=== PATIENT | male | born 1940 | race Caucasian/White ===

== ENCOUNTER 2018-12-14 22:06 | Emergency (ER) | payer OTHER ==
--- OUTSIDE RECORDS SUMMARY | 2018-12-14 22:09 | XMS REPORT ---
:1940 Author Organization eClinicalWorks Care Team Providers Name Role Phone Mccoy, Na Provider Role Unavailable Allergies, Adverse Reactions, Alerts Substance Reaction Event Type Levaquin severe leg cramps Drug Allergy Clarithromycin diarrhea, bad taste, dizziness Drug Allergy Problems Problem Type Condition Code Onset Dates Condition Status Problem Prediabetes R73.09 Active Problem Foreign body in left ear, initial T16.2XXA Active encounter Problem Acute right-sided back pain with M54.41 Active sciatica Problem Iron deficiency anemia, D50.9 Active unspecified iron deficiency anemia type Assessment Prediabetes R73.09 Active Problem Hyponatremia E87.1 Active Assessment Dizziness R42 Active Assessment Hyperlipidemia E78.5 Active Problem Hypothyroidism (acquired) E03.9 Active Problem 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 Problem Elevated prostate specific antigen R97.2 Active [PSA] Problem Pneumococcal vaccination Z23 Active administered at current visit Problem Adult general medical exam Z00.00 Active Problem History of insect sting allergy Z91.038 Active Assessment Hyponatremia E87.1 Active Assessment Hypothyroidism (acquired) E03.9 Active Problem Restless leg syndrome G25.81 Active Problem HTN (hypertension) I10 Active Assessment Iron deficiency anemia, D50.9 Active unspecified iron deficiency anemia type Problem Microscopic hematuria R31.29 Active Problem Dizziness R42 Active Assessment HTN (hypertension) I10 Active Problem 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 Active Problem Hyperlipidemia E78.5 Active Medications Medication Code Code Instructions Start End Status Dosage System Date Date Pantoprazole [facility] 24208167384 40 MG Orally Active 1 tablet Sodium Once a day Meclizine HCl [facility] 36170649534 25 MG Active TAKE 1 TABLET BY MOUTH 3 TIMES A DAY Lisinopril ND 98242766140 40 MG Orally Active 1 tablet Once a day EpiPen 2-Gerald [facility] 54155861467 0.3 MG/0.3ML Active not Injection defined Singulair ND 02519046839 10 MG Orally Active 1 tablet Once a day Olopatadine HCl [facility] 27638777952 0.6 % Nasally Active 2 sprays Twice a day in each nostril Cipro [facility] 66852446481 500 MG Orally Active 1 tablet every 12 hrs Crestor [facility] 80192559854 40 MG Orally Active 1 tablet Once a day Augmentin [facility] 31261745120 500-125 MG Active 1 tablet Orally every 12 hrs Levothyroxine [facility] 42403526545 25 MCG Orally Oct 24, Active 1 tablet Sodium Once a day in 2018 on an AM empty stomach in the morning Mobic [facility] 53529383568 7.5 MG Orally Active 1 tablet Once a day Results No Known Results Summary Purpose eClinicalWorks Submission
[2018-12-14] MEDS ORDERED: VANCOMYCIN 1 GM/250 ML BAG ONE (23:35)
[2018-12-14] MEDS ORDERED: PIPER/TAZO/NS 3.375gm 3.375 GM/100 ML BAG ONE (23:35)
[2018-12-14 23:37] LABS: Absolute Lymphocytes (CBC) 1.5 K/uL (0.7-4.9); Absolute Monocytes 0.6 K/uL (0.1-1.3); Absolute Neutrophil 3.8 K/uL (1.8-8.0); Basophils % 0.8 % (0-1.3); Eosinophils % 2.4 % (0-4.4); Hematocrit 35.7 % (39.6-49.0); Lymphocytes % 24.6 % (15.3-44.8); MPV 8.3 fL (7.6-11.3); Monocytes % 9.8 % (3.3-12.3)
[2018-12-14 23:54] LABS: Albumin 3.8 g/dL (3.4-5.0); Bilirubin Direct 0.2 mg/dL (0-0.2); Bilirubin Total 0.6 mg/dL (0.2-1.0); Potassium 3.9 mmol/L (3.5-5.1)
[2018-12-15] MEDS ORDERED: LIDOCAINE 1% MPF 2 ML AMPULE ONE (01:09)
--- NOTE | 2018-12-15 01:16 | ER ---
Nurse's Notes [facility] Name: Noah Whyte Age: 78 yrs Sex: Male : 1940 Arrival Date: 12/14/2018 Time: 22:09 Bed 30 Private MD: Diagnosis: Lymphangitis;Cutaneous abscess of right hand;Puncture wound with foreign body of right hand Presentation: 12/14 22:45 Presenting complaint: Patient states: "I FELT SOMETHING ON MY THUMB A WEEK AGO WHEN I rv WAS OUTSIDE. LIKE AN INSECT BITE OR SOMETHING AND I THOUGHT ITS JUST GO AWAY BUT TODAY I NOTICED I HAVE THIS WARM RED ROD ON MY RIGHT ARM NOW.". Transition of care: patient was not received from another setting of care. Onset of symptoms was December 14, 2018 at 22:46. Risk Assessment: Do you want to hurt yourself or someone else? Patient reports no desire to harm self or others. Initial Sepsis Screen: Does the patient meet any 2 criteria? No. Patient's initial sepsis screen is negative. Does the patient have a suspected source of infection? No. Patient's initial sepsis screen is negative. Care prior to arrival: None. 22:45 Method Of Arrival: Ambulatory rv 22:45 Acuity: JAIMIE 4 rv Triage Assessment: 22:50 General: Appears in no apparent distress. comfortable, Behavior is calm, cooperative. rv Pain: Denies pain. Derm: Rash noted that is red, on right arm. Musculoskeletal: No signs and/or symptoms reported regarding the musculoskeletal system. Historical: - Allergies: 22:50 Levofloxacin; rv - Home Meds: 22:50 lisinopril 40 mg Oral tab 1 tab once daily [Active]; rosuvastatin 40 mg oral tab 1 tab rv once daily [Active]; pantoprazole 40 mg oral TbEC 1 tab once daily [Active]; levothyroxine 25 mcg tab 1 tab once daily [Active]; montelukast 10 mg oral tab 1 tab once daily [Active]; meclizine 25 mg Oral tab 1 tab 3 times per day [Active]; - PMHx: 22:50 High Cholesterol; Hypertension; rv - PSHx: 22:50 None; rv - Immunization history:: Adult Immunizations up to date, Last tetanus immunization: up to date Pneumococcal vaccine is up to date, Flu vaccine is up to date. - Social history:: Smoking status: Patient/guardian denies using tobacco, never smoked. - Ebola Screening: : Patient negative for fever greater than or equal to 101.5 degrees Fahrenheit, and additional compatible Ebola Virus Disease symptoms Patient denies exposure to infectious person Patient denies travel to an Ebola-affected area in the 21 days before illness onset. Screenin:52 Abuse screen: Denies threats or abuse. Denies injuries from another. Nutritional rv screening: No deficits noted. Tuberculosis screening: No symptoms or risk factors identified. Fall Risk None identified. Assessment: 22:51 General: Appears in no apparent distress. comfortable, Behavior is calm, cooperative. rv Pain: Denies pain. Neuro: Level of Consciousness is awake, alert, obeys commands, Oriented to person, place, time, situation. Cardiovascular: Capillary refill < 3 seconds. Respiratory: Airway is patent. GI: No signs and/or symptoms were reported involving the gastrointestinal system. : No signs and/or symptoms were reported regarding the genitourinary system. EENT: No signs and/or symptoms were reported regarding the EENT system. Derm: Rash noted that is red, on right arm. Musculoskeletal: No signs and/or symptoms reported regarding the musculoskeletal system. 23:58 Reassessment: Patient appears in no apparent distress at this time. No changes from jd3 previously documented assessment. Patient and/or family updated on plan of care and expected duration. Pain level reassessed. Patient is alert, oriented x 3, equal unlabored respirations, skin warm/dry/pink. Vital Signs: 22:51 BP 137 / 75; Pulse 64; Resp 18; Temp 98.5; Pulse Ox 96% on R/A; Weight 79.38 kg (R); rv 23:58 BP 120 / 67; Pulse 57; Resp 18 S; Pulse Ox 96% on R/A; jd3 02/ 01:00 BP 120 / 76; Pulse 54; Resp 18; Pulse Ox 96% on R/A; rv 01:30 BP 119 / 62; Pulse 54; Resp 18; Pulse Ox 95% on R/A; rv 02:00 BP 121 / 63; Pulse 52; Resp 16 S; Pulse Ox 96% on R/A; rv ED Course: 12/14 22:09 Patient arrived in ED. al2 22:46 Triage completed. rv 22:47 Obie Cruz PA is PHCP. jr8 22:47 Wally Chaves MD is Attending Physician. jr8 22:53 Arm band placed on right wrist. rv 22:53 Patient has correct armband on for positive identification. Bed in low position. Call rv light in reach. Side rails up X 1. Adult w/ patient. Pulse ox on. NIBP on. 23:10 No provider procedures requiring assistance completed. Inserted saline lock: 20 gauge rv in left antecubital area, using aseptic technique. 12/15 02:25 IV discontinued, bleeding controlled, No redness/swelling at site. Pressure dressing rv applied. Administered Medications: 12/14 23:30 Drug: Zosyn 3.375 grams Route: IVPB; Infused Over: 60 mins; Site: left antecubital; rv 12/15 00:38 Follow up: Response: No adverse reaction; IV Status: Completed infusion jd3 00:38 Drug: vancoMYCIN 1 grams Route: IVPB; Infused Over: 2 hrs; Site: left antecubital; jd3 Outcome: 01:16 Discharge ordered by . jr8 02:25 Discharged to home ambulatory. rv 02:25 Condition: good 02:25 Discharge instructions given to patient, family, Instructed on discharge instructions, follow up and referral plans. medication usage, Demonstrated understanding of instructions, follow-up care, medications, Prescriptions given X 1. 02:32 Patient left the ED. rv Signatures: Obie Cruz PA PA jr8 Moris Mathews RN RN Carmen Campos Ronaldo RN RN rv Corrections: (The following items were deleted from the chart) 12/14 22:52 22:51 Derm: Skin is intact, rv rv
--- NOTE | 2018-12-15 01:17 | EDPHYS ---
Physician Documentation [facility] Name: Noah Whyte Age: 78 yrs Sex: Male : 1940 Arrival Date: 12/14/2018 Time: 22:09 Bed 30 Private MD: ED Physician Wally Chaves HPI: 12/15 00:59 This 78 yrs old Male presents to ER via Ambulatory with complaints of Finger jr8 pain. 00:59 Patient stated that he thought he may have had a sticker or splinter go into his thumb jr8 a few weeks ago. Has had a mild bump to that area. Now becoming red and more painful. Today noticed red streak up his right arm. Denies n/v, fevers. Severity of symptoms: At their worst the symptoms were mild in the emergency department the symptoms are unchanged. The patient has not experienced similar symptoms in the past. The patient has not recently seen a physician. Historical: - Allergies: 12/14 22:50 Levofloxacin; rv - Home Meds: 22:50 lisinopril 40 mg Oral tab 1 tab once daily [Active]; rosuvastatin 40 mg oral tab 1 tab rv once daily [Active]; pantoprazole 40 mg oral TbEC 1 tab once daily [Active]; levothyroxine 25 mcg tab 1 tab once daily [Active]; montelukast 10 mg oral tab 1 tab once daily [Active]; meclizine 25 mg Oral tab 1 tab 3 times per day [Active]; - PMHx: 22:50 High Cholesterol; Hypertension; rv - PSHx: 22:50 None; rv - Immunization history:: Adult Immunizations up to date, Last tetanus immunization: up to date Pneumococcal vaccine is up to date, Flu vaccine is up to date. - Social history:: Smoking status: Patient/guardian denies using tobacco, never smoked. - Ebola Screening: : Patient negative for fever greater than or equal to 101.5 degrees Fahrenheit, and additional compatible Ebola Virus Disease symptoms Patient denies exposure to infectious person Patient denies travel to an Ebola-affected area in the 21 days before illness onset. ROS: 12/15 00:59 Eyes: Negative for injury, pain, redness, and discharge, ENT: Negative for injury, jr8 pain, and discharge, Neck: Negative for injury, pain, and swelling, Cardiovascular: Negative for chest pain, palpitations, and edema, Respiratory: Negative for shortness of breath, cough, wheezing, and pleuritic chest pain, Abdomen/GI: Negative for abdominal pain, nausea, vomiting, diarrhea, and constipation, Back: Negative for injury and pain, MS/Extremity: Negative for injury and deformity, Neuro: Negative for headache, weakness, numbness, tingling, and seizure. Skin: Positive for abscess, erythema, of the right hand and right arm. Exam: 00:59 Eyes: Pupils equal round and reactive to light, extra-ocular motions intact. Lids and jr8 lashes normal. Conjunctiva and sclera are non-icteric and not injected. Cornea within normal limits. Periorbital areas with no swelling, redness, or edema. ENT: Nares patent. No nasal discharge, no septal abnormalities noted. Tympanic membranes are normal and external auditory canals are clear. Oropharynx with no redness, swelling, or masses, exudates, or evidence of obstruction, uvula midline. Mucous membranes moist. Neck: Trachea midline, no thyromegaly or masses palpated, and no cervical lymphadenopathy. Supple, full range of motion without nuchal rigidity, or vertebral point tenderness. No Meningismus. Cardiovascular: Regular rate and rhythm with a normal S1 and S2. No gallops, murmurs, or rubs. Normal PMI, no JVD. No pulse deficits. Respiratory: Lungs have equal breath sounds bilaterally, clear to auscultation and percussion. No rales, rhonchi or wheezes noted. No increased work of breathing, no retractions or nasal flaring. Abdomen/GI: Soft, non-tender, with normal bowel sounds. No distension or tympany. No guarding or rebound. No evidence of tenderness throughout. Back: No spinal tenderness. No costovertebral tenderness. Full range of motion. MS/ Extremity: Pulses equal, no cyanosis. Neurovascular intact. Full, normal range of motion. Neuro: Awake and alert, GCS 15, oriented to person, place, time, and situation. Cranial nerves II-XII grossly intact. Motor strength 5/5 in all extremities. Sensory grossly intact. Cerebellar exam normal. Normal gait. 00:59 Skin: small abscess with possible foreign body noticed to right lateral thumb. Lymphangitic streak to mid biceps noted on right side. No cellulitis . Vital Signs: 12/14 22:51 BP 137 / 75; Pulse 64; Resp 18; Temp 98.5; Pulse Ox 96% on R/A; Weight 79.38 kg (R); rv 23:58 BP 120 / 67; Pulse 57; Resp 18 S; Pulse Ox 96% on R/A; jd3 12/15 01:00 BP 120 / 76; Pulse 54; Resp 18; Pulse Ox 96% on R/A; rv 01:30 BP 119 / 62; Pulse 54; Resp 18; Pulse Ox 95% on R/A; rv 02:00 BP 121 / 63; Pulse 52; Resp 16 S; Pulse Ox 96% on R/A; rv Procedures: 01:12 I \T\ D: Incision and drainage was performed for an abscess of the right thumb Prepped jr8 with chlorhexidine . Anesthetized with 1 ml's 1% Lidocaine. Incised with #11 blade. Drained small amount purulent fluid. Thorn removed from abscess . MDM: 12/14 22:47 Patient medically screened. jr8 12/15 01:12 Data reviewed: vital signs, nurses notes, lab test result(s), and as a result, I will [facility] discharge patient. Data interpreted: Pulse oximetry: on room air is 96 %. Interpretation: normal. Counseling: I had a detailed discussion with the patient and/or guardian regarding: the historical points, exam findings, and any diagnostic results supporting the discharge/admit diagnosis, lab results, the need for outpatient follow up, a family practitioner, to return to the emergency department if symptoms worsen or persist or if there are any questions or concerns that arise at home. Response to treatment: the patient's symptoms have markedly improved after treatment. 01:12 ED course: Patient knows to watch lymphangitic streak closely. Would come back if worse jr8 or if he becomes toxic . 12/14 23:13 Order name: CBC with Diff; Complete Time: 23:59 jr8 12/14 23:13 Order name: Basic Metabolic Panel; Complete Time: 23:59 jr8 12/14 23:13 Order name: LFT's; Complete Time: 23:59 jr8 12/14 23:13 Order name: Blood Culture Adult (2) jr8 12/14 23:13 Order name: IV; Complete Time: 23:47 jr8 Administered Medications: 12/14 23:30 Drug: Zosyn 3.375 grams Route: IVPB; Infused Over: 60 mins; Site: left antecubital; rv 12/15 00:38 Follow up: Response: No adverse reaction; IV Status: Completed infusion jd3 00:38 Drug: vancoMYCIN 1 grams Route: IVPB; Infused Over: 2 hrs; Site: left antecubital; jd3 Disposition: 06:51 Co-signature as Attending Physician, Wally Chaves MD I agree with the assessment and larry plan of care. Disposition: 12/15/18 01:16 Discharged to Home. Impression: Lymphangitis, Cutaneous abscess of right hand, Puncture wound with foreign body of right hand. - Condition is Stable. - Discharge Instructions: Skin Abscess, Incision and Drainage, Puncture Wound, Lymphangitis, Adult. - Prescriptions for Clindamycin HCl 300 mg Oral Capsule - take 1 capsule by ORAL route every 6 hours for 10 days; 40 capsule. Bactrim DS 800- 160 mg Oral Tablet - take 1 tablet by ORAL route every 12 hours for 10 days; 20 tablet. - Medication Reconciliation Form, Thank You Letter, Antibiotic Education, Prescription Opioid Use form. - Follow up: Private Physician; When: 48 Hours; Reason: Wound Recheck, Recheck today's complaints, Continuance of care, Re-evaluation by your physician. - Problem is new. - Symptoms have improved. Signatures: Dispatcher [employer] EDWally Hernandez MD MD cha Roszak, Josh, PA PA jr8 Moris Mathews RN RN jKhang Kaminski RN RN rv Corrections: (The following items were deleted from the chart) 02:32 01:16 12/15/2018 01:16 Discharged to Home. Impression: Lymphangitis; Cutaneous abscess rv of right hand; Puncture wound with foreign body of right hand. Condition is Stable. Forms are Medication Reconciliation Form, Thank You Letter, Antibiotic Education, Prescription Opioid Use. Follow up: Private Physician; When: 48 Hours; Reason: Wound Recheck, Recheck today's complaints, Continuance of care, Re-evaluation by your physician. Problem is new. Symptoms have improved. jr8
[2018-12-15 02:53] VITALS: TEMP 98.5
[2018-12-15 03:02] VITALS: BP 121/63; O2SAT 96
== END 2018-12-15 02:32 | disposition home or self-care (01) ==
LOC: ER 22:06
PROC: 0J9J0ZZ Drainage of Right Hand Subcutaneous Tissue and Fascia, Open Approach (ICD-10-PCS; principal; 2018-12-14)
DX: L02.511 Cutaneous abscess of right hand (principal); S61.041A Puncture wound with foreign body of right thumb without damage to nail, initial encounter; E78.00 Pure hypercholesterolemia, unspecified; I10 Essential (primary) hypertension
CPT/HCPCS: 10060; 36415; 80048; 80076; 85025; 87040 ×2; 96365; 96375; 99284; J2001; J2543; J3370

== ENCOUNTER 2019-11-04 11:24 | Emergency (ER) | payer OTHER ==
--- OUTSIDE RECORDS SUMMARY | 2019-11-04 11:26 | XMS REPORT ---
:1940 Author Organization eClinicalWorks Care Team Providers Name Role Phone Mccoy, Na Provider Role Unavailable Allergies, Adverse Reactions, Alerts Substance Reaction Event Type Levaquin severe leg cramps Drug Allergy Clarithromycin diarrhea, bad taste, dizziness Drug Allergy Problems Problem Type Condition Code Onset Dates Condition Status Assessment Allergic rhinitis, unspecified J30.9 Active seasonality, unspecified trigger Assessment Dizziness R42 Active Assessment HTN (hypertension) I10 Active Assessment Mass of urinary bladder N32.89 Active Assessment Hyperlipidemia E78.5 Active Assessment Hypothyroidism (acquired) E03.9 Active Assessment Controlled type 2 diabetes E11.9 Active mellitus without complication, without long-term current use of insulin Problem Acute right-sided back pain with M54.41 Active sciatica Problem Foreign body in left ear, initial T16.2XXA Active encounter Problem Adult general medical exam Z00.00 Active Problem Hypothyroidism (acquired) E03.9 Active Problem Elevated prostate specific antigen R97.2 Active [PSA] Problem Iron deficiency anemia, D50.9 Active unspecified iron deficiency anemia type Problem Lymphangitis I89.1 Active Problem Leukocytopenia, unspecified D72.819 Active Problem Allergic rhinitis, unspecified J30.9 Active seasonality, unspecified trigger Problem Serum total bilirubin elevated R17 Active Problem Microscopic hematuria R31.29 Active Problem History of insect sting allergy Z91.038 Active Problem Gastro-esophageal reflux disease K21.9 Active without esophagitis Problem 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 Problem Medication side effect T88.7XXA Active Problem Controlled type 2 diabetes E11.9 Active mellitus without complication, without long-term current use of insulin Problem Adult BMI 26.0-26.9 kg/sq m Z68.26 Active Problem Mass of urinary bladder N32.89 Active Assessment Serum total bilirubin elevated R17 Active Problem Dizziness R42 Active Assessment Iron deficiency anemia, D50.9 Active unspecified iron deficiency anemia type Problem Hyperlipidemia E78.5 Active Assessment Gastro-esophageal reflux disease K21.9 Active without esophagitis Problem 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 Active Assessment Diaphragmatic hernia without K44.9 Active obstruction or gangrene Problem HTN (hypertension) I10 Active Problem Pneumococcal vaccination Z23 Active administered at current visit Problem Hyponatremia E87.1 Active Problem Prediabetes R73.09 Active Problem Restless leg syndrome G25.81 Active Medications Medication Code Code Instructions Start End Status Dosage System Date Date Meclizine HCl [facility] 51903537053 25 MG Active TAKE 1 TABLET BY MOUTH 3 TIMES A DAY Pantoprazole [facility] 10779001609 40 MG Orally Active 1 tablet Sodium Once a day Singulair [facility] 62080082980 10 MG Orally Active 1 tablet Once a day EpiPen 2-Gerald [facility] 79211328900 0.3 MG/0.3ML Active not defined Injection Mobic [facility] 86139399867 7.5 MG Orally Active 1 tablet Once a day Glucometer [facility] 57960896431 n/s n/s use as Active one directed Cipro [facility] 86154642445 500 MG Orally Active 1 tablet every 12 hrs Augmentin [facility] 68144779034 500-125 MG Active 1 tablet Orally every 12 hrs Crestor [facility] 10799843593 40 MG Orally Active 1 tablet Once a day Meclizine HCl [facility] 81885153219 25 MG Active TAKE 1 TABLET BY MOUTH 3 TIMES A DAY Levothyroxine [facility] 57748801663 25 MCG Orally Active 1 tablet on Sodium Once a day in an empty AM stomach in the morning Lisinopril [facility] 61248413622 40 MG Orally Active 1 tablet Once a day blood glucose ND 0 twice a day Active as directed test strip Lancets [facility] 06743689073 - MA twice Active as directed daily Levothyroxine [facility] 42463455731 25 MCG Orally Active 1 tablet on Sodium Once a day in an empty AM stomach in the morning Olopatadine HCl [facility] 11353252898 0.6 % Nasally Active 2 sprays in Twice a day each nostril Results No Known Results Summary Purpose eClinicalWorks Submission
--- OUTSIDE RECORDS SUMMARY | 2019-11-04 11:26 | XMS REPORT ---
:1940 [facility] Address [address] [place] [address] Dr. Damian [address] [place] [id number] Care Team Providers Name Role Phone LEAH LEZAMA Unavailable Unavailable Problems This patient has no known problems. Allergies, Adverse Reactions, Alerts This patient has no known allergies or adverse reactions. Medications This patient has no known medications. Results Test Description Test Time Test Comments Text Results Atomic Results Result Comments TISSUE EXAM 2019-11-02 17:32:00 Surgical Pathology Report Case: [id number] Authorizing Provider: Leah Lezama MD Collected: 10/30/2019 1037 Ordering Location: [facility] Received: 10/31/2019 0846 SERVICES Pathologist: Yan Hays MD Specimens: A) - Urinary Bladder, TUR, RIGHT LATERAL WALL TUMOR B) - Urinary Bladder, TUR, RIGHT LATERAL WALL TUMOR - BASE OF THE TUMOR A. 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 [id number] X 2Preoperative and postoperative diagnoses: bladder tumorA. Urinary bladder, TUR tissue. B. Urinary bladder, TUR tissue A. Received in formalin labeled with the patient's name, accession number and "urinary bladder, TUR tissue, right lateral wall tumor" is a _5 x 6.7 x 1.6 cm aggregate of irregular ware-brown to ware-pink pieces of tissue admixed with blood clot. The specimen is representatively submitted in cassettes A1-A15. B. Received in formalin labeled with the patient's name, accession number and "urinary bladder, TUR tissue, right lateral wall tumor-base of tumor" is a 2.5 x 1.5 x 0.4 cm aggregate of irregular ware-red to ware-pink rubbery tissue fragments admixed with blood clot. The specimen entirely submitted in cassettes B1-AB. YUDELKA/Ar. POCT-GLUCOSE METER 2019-10-30 06:24:00 Test Item Value Reference Range Comments POC-GLUCOSE METER (BEAKER) 76 mg/dL 70-110 : TESTED AT [facility] [address] [facility] (test cxev=[id number]) [place], [address]: Chair Lift Operator/Tools Developer [id number] for SEBASTIAN LINO
--- OUTSIDE RECORDS SUMMARY | 2019-11-04 11:26 | XMS REPORT ---
:1940 Author Organization eClinicalWorks Care Team Providers Name Role Phone Mccoy, Kori Provider Role Unavailable Allergies, Adverse Reactions, Alerts Substance Reaction Event Type Levaquin severe leg cramps Drug Allergy Clarithromycin diarrhea, bad taste, dizziness Drug Allergy Problems Problem Type Condition Code Onset Dates Condition Status Assessment Influenza vaccination administered Z23 Active at current visit Assessment Adult BMI 26.0-26.9 kg/sq m Z68.26 Active Assessment Dizziness R42 Active Assessment Serum total bilirubin elevated R17 Active Assessment Iron deficiency anemia, D50.9 Active unspecified iron deficiency anemia type Assessment Leukocytopenia, unspecified D72.819 Active Assessment HTN (hypertension) I10 Active Problem Hyperlipidemia E78.5 Active Assessment Hyperlipidemia E78.5 Active Problem Prediabetes R73.09 Active Assessment Hypothyroidism (acquired) E03.9 Active Problem Restless leg syndrome G25.81 Active Problem Hyponatremia E87.1 Active Problem Pneumococcal vaccination Z23 Active administered at current visit Problem Controlled type 2 diabetes E11.9 Active mellitus without complication, without long-term current use of insulin Problem Lymphangitis I89.1 Active Problem Acute right-sided back pain with M54.41 Active sciatica Problem Medication side effect T88.7XXA Active Assessment Controlled type 2 diabetes E11.9 Active mellitus without complication, without long-term current use of insulin Problem Hypothyroidism (acquired) E03.9 Active Problem Adult general medical exam Z00.00 Active Problem Leukocytopenia, unspecified D72.819 Active Problem Iron deficiency anemia, D50.9 Active unspecified iron deficiency anemia type Problem 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 91858429861 500-125 MG Active 1 tablet Orally every 12 hrs Olopatadine HCl [facility] 49056678613 0.6 % Nasally Active 2 sprays in Twice a day each nostril Pantoprazole [facility] 59407001953 40 MG Orally Active 1 tablet Sodium Once a day blood glucose ND 0 twice a day Jul 25April Active as directed test strip 2018 Lancets [facility] [id number] - ID twice Jul 25, Active as directed daily 2018 Singulair [facility] 94433698239 10 MG Orally Active 1 tablet Once a day Crestor [facility] 74378583556 40 MG Orally Active 1 tablet Once a day Levothyroxine [facility] 94911602330 25 MCG Orally Active 1 tablet on Sodium Once a day in an empty AM stomach in the morning Lisinopril [facility] 85655697919 40 MG Orally Active 1 tablet Once a day EpiPen 2-Gerald [facility] 05428789932 0.3 MG/0.3ML Active not defined Injection Glucometer ND 0 n/s n/s use as Jul 25Oct 23, Active one directed 2018 2018 Meclizine HCl [facility] 56373720080 25 MG Active TAKE 1 TABLET BY MOUTH 3 TIMES A DAY Mobic [facility] 48760725974 7.5 MG Orally Active 1 tablet Once a day Meclizine HCl [facility] 61391299543 25 MG Active TAKE 1 TABLET BY MOUTH 3 TIMES A DAY Results No Known Results Immunizations Vaccine Administration Date FluAD Jul 25, 2019 Summary Purpose eClinicalWorks Submission
[2019-11-04 12:33] LABS: Urine Blood 3+ (NEG); Urine Glucose NEGATIVE (NEG); Urine Protein 1+ (NEG); Urine Specific Gravity <1.005 (1.005-1.030); Urine pH 5.5 (5.0-7.0)
--- NOTE | 2019-11-04 13:03 | EDPHYS ---
Physician Documentation [facility] [place] Name: Noah Whyte Age: 79 yrs Sex: Male : 1940 Arrival Date: 11/04/2019 Time: 11:26 Bed 7 Private MD: ED Physician Dilan Seo HPI: 11/04 12:06 This 79 yrs old Male presents to ER via Ambulatory with complaints of Problem pm1 With Urinary Catheter. 12:06 The patient presents with a Kulkarni catheter problem, draining bloody urine. Onset: The pm1 symptoms/episode began/occurred this morning. Associated signs and symptoms: The patient has no apparent associated signs or symptoms, Pertinent negatives: abdominal pain, constipation, diarrhea, fever, nausea, vomiting. The patient has not experienced similar symptoms in the past. The patient has been recently seen by a physician: BERNIE on 10/30 at [facility] and has a follow up tomorrow with Dr. Hunter. Patient reported some discomfort with his Kulkarni catheter, he felt that it was too far inside so he pulled at it a little and started to have some blood in the Kulkarni tube. Patient just completed Macrobid yesterday. Historical: - Allergies: 12:20 Levofloxacin; hb - Home Meds: 12:20 levothyroxine 25 mcg tab 1 tab once daily [Active]; lisinopril 40 mg Oral tab 1 tab hb once daily [Active]; meclizine 25 mg Oral tab 1 tab 3 times per day [Active]; montelukast 10 mg Oral tab 1 tab once daily [Active]; pantoprazole 40 mg Oral TbEC 1 tab once daily [Active]; rosuvastatin 40 mg Oral tab 1 tab once daily [Active]; - PMHx: 12:20 High Cholesterol; Hypertension; hb - PSHx: 12:20 TURP; hb - Immunization history:: Adult Immunizations up to date. - Social history:: Smoking status: Patient/guardian denies using tobacco. - Ebola Screening: : No symptoms or risks identified at this time. ROS: 12:26 Constitutional: Negative for fever, chills, and weight loss, Cardiovascular: Negative pm1 for chest pain, palpitations, and edema, Respiratory: Negative for shortness of breath, cough, wheezing, and pleuritic chest pain, Abdomen/GI: Negative for abdominal pain, nausea, vomiting, diarrhea, and constipation, Back: Negative for injury and pain. 12:26 MS/Extremity: Negative for injury and deformity, Skin: Negative for injury, rash, and discoloration, Neuro: Negative for headache, weakness, numbness, tingling, and seizure. 12:26 : Positive for hematuria, Negative for pelvic pain, flank pain, penile pain, testicular pain Exam: 12:26 Constitutional: This is a well developed, well nourished patient who is awake, alert, pm1 and in no acute distress. Vital Signs: 11:50 BP 127 / 74; Pulse 82; Resp 16; Temp 97.9; Pulse Ox 100% on R/A; Pain 0/10; hb MDM: 11:39 Patient medically screened. pm1 13:01 Data reviewed: vital signs. Data interpreted: Pulse oximetry: on room air is 100 %. pm1 Interpretation: normal. Counseling: I had a detailed discussion with the patient and/or guardian regarding: the historical points, exam findings, and any diagnostic results supporting the discharge/admit diagnosis, the need for outpatient follow up, a urologist, to return to the emergency department if symptoms worsen or persist or if there are any questions or concerns that arise at home. 11/04 12:06 Order name: Urine Microscopic Only; Complete Time: 14:25 pm1 11/04 12:28 Order name: Urine Dipstick--Ancillary (enter results); Complete Time: 12:40 bd 11/04 11:53 Order name: Bladder Scanner; Complete Time: 12:10 pm1 11/04 11:53 Order name: Misc. Order: Bladder irrigation; Complete Time: 12:10 pm1 11/04 12:06 Order name: Urine Dipstick-Ancillary (obtain specimen); Complete Time: 12:17 pm1 Administered Medications: No medications were administered Disposition: 15:31 Co-signature as Attending Physician, Dilna Seo MD I agree with the assessment and kdr plan of care. Disposition: 11/04/19 13:02 Discharged to Home. Impression: Hematuria, unspecified. - Condition is Stable. - Discharge Instructions: Hematuria, Adult, Transurethral Resection of the Prostate. - Medication Reconciliation Form, Thank You Letter, Antibiotic Education, Prescription Opioid Use form. - Follow up: Emergency Department; When: As needed; Reason: Worsening of condition. Follow up: Private Physician; When: 2 - 3 days; Reason: Recheck today's complaints, Continuance of care, Re-evaluation by your physician. - Problem is new. - Symptoms have improved. Signatures: Dispatcher [employer] EDMS Dilan Seo MD MD kdr Mika Moody, RECEIVING DOCK CHECKER RECEIVING DOCK CHECKER pm1 Bijal Wu RN RN hb Corrections: (The following items were deleted from the chart) 13:12 13:02 11/04/2019 13:02 Discharged to Home. Impression: Hematuria, unspecified. hb Condition is Stable. Forms are Medication Reconciliation Form, Thank You Letter, Antibiotic Education, Prescription Opioid Use. Follow up: Emergency Department; When: As needed; Reason: Worsening of condition. Follow up: Private Physician; When: 2 - 3 days; Reason: Recheck today's complaints, Continuance of care, Re-evaluation by your physician. Problem is new. Symptoms have improved. pm1
--- NOTE | 2019-11-04 13:03 | ER ---
Nurse's Notes [facility] Name: Noah Whyte Age: 79 yrs Sex: Male : 1940 Arrival Date: 11/04/2019 Time: 11:26 Bed 7 Private MD: Diagnosis: Hematuria, unspecified Presentation: 11/04 11:49 Presenting complaint: TURP on 10/30, delong catheter in place, noticed blood in bag hb today. Transition of care: patient was not received from another setting of care. Onset of symptoms was November 04, 2019. Risk Assessment: Do you want to hurt yourself or someone else? Patient reports no desire to harm self or others. Initial Sepsis Screen: Does the patient meet any 2 criteria? No. Patient's initial sepsis screen is negative. Does the patient have a suspected source of infection? No. Patient's initial sepsis screen is negative. Care prior to arrival: None. 11:49 Method Of Arrival: Ambulatory hb 11:49 Acuity: JAIMIE 3 hb Triage Assessment: 11:50 General: Appears in no apparent distress. Behavior is calm, cooperative. Pain: Denies hb pain. EENT: No signs and/or symptoms were reported regarding the EENT system. Neuro: Level of Consciousness is awake, alert, obeys commands, Oriented to person, place, time, situation. Cardiovascular: Capillary refill < 3 seconds Patient's skin is warm and dry. Respiratory: Airway is patent Respiratory effort is even, unlabored, Respiratory pattern is regular, symmetrical. GI: No signs and/or symptoms were reported involving the gastrointestinal system. : Delong in place to gravity drainage Urine is blood tinged. Derm: Skin is pink, warm \T\ dry. Musculoskeletal: No signs and/or symptoms reported regarding the musculoskeletal system. Historical: - Allergies: 12:20 Levofloxacin; hb - Home Meds: 12:20 levothyroxine 25 mcg tab 1 tab once daily [Active]; lisinopril 40 mg Oral tab 1 tab hb once daily [Active]; meclizine 25 mg Oral tab 1 tab 3 times per day [Active]; montelukast 10 mg Oral tab 1 tab once daily [Active]; pantoprazole 40 mg Oral TbEC 1 tab once daily [Active]; rosuvastatin 40 mg Oral tab 1 tab once daily [Active]; - PMHx: 12:20 High Cholesterol; Hypertension; hb - PSHx: 12:20 TURP; hb - Immunization history:: Adult Immunizations up to date. - Social history:: Smoking status: Patient/guardian denies using tobacco. - Ebola Screening: : No symptoms or risks identified at this time. Screenin:50 Abuse screen: Denies threats or abuse. Denies injuries from another. Nutritional hb screening: No deficits noted. Tuberculosis screening: No symptoms or risk factors identified. Fall Risk None identified. Assessment: 11:50 General: see triage assessment. hb 12:25 Reassessment: Pre irrigation bladder scan: 10ml. Bladder irrigated with 250ml NS, very hb light pink tinged urine turned clear. Post irrigation bladder scan: 9ml. Pt tolerated well. SOCORRO Brennan notified. Vital Signs: 11:50 BP 127 / 74; Pulse 82; Resp 16; Temp 97.9; Pulse Ox 100% on R/A; Pain 0/10; hb ED Course: 11:26 Patient arrived in ED. rg4 11:38 Mika Moody NP is PHCP. pm1 11:38 Dilan Seo MD is Attending Physician. pm1 11:50 Triage completed. hb 11:50 Patient has correct armband on for positive identification. Call light in reach. hb 12:09 Bijal Wu, KORI is Primary Nurse. hb 12:18 Arm band placed on. hb 13:12 No provider procedures requiring assistance completed. Patient did not have IV access hb during this emergency room visit. Administered Medications: No medications were administered Outcome: 13:02 Discharge ordered by MD. pm1 13:12 Discharged to home ambulatory, with family. hb 13:12 Condition: stable 13:12 Discharge instructions given to patient, family, Instructed on discharge instructions, follow up and referral plans. medication usage, Demonstrated understanding of instructions, follow-up care, medications. 13:12 Patient left the ED. hb Signatures: Mika Moody NP SENIOR [employer]LE [employer] DEVELOPER pm1 Bijal Wu, RN RN Felisha Velasquez rg4
[2019-11-04 13:06] LABS: Urine Bacteria <20 /HPF (NONE SEEN); Urine Culture Reflex Order NOT NEEDED; Urine RBC TNTC /HPF (NONE SEEN)
[2019-11-04 13:20] VITALS: BP 127/74; TEMP 97.9; O2SAT 100
== END 2019-11-04 13:12 | disposition home or self-care (01) ==
LOC: ER 11:24
DX: R31.9 Hematuria, unspecified (principal); I10 Essential (primary) hypertension; E78.00 Pure hypercholesterolemia, unspecified; Z88.1 Allergy status to other antibiotic agents; Z98.890 Other specified postprocedural states
CPT/HCPCS: 81003; 81015; 99281

== ENCOUNTER 2020-05-01 21:26 | Emergency (ER) | payer OTHER ==
--- OUTSIDE RECORDS SUMMARY | 2020-05-01 21:31 | XMS REPORT | Clinical Summary ---
:1940 Author Organization [facility] Address [address] [place] [address] Care Team Providers Name Role Phone Jeannette Mccoy DO Primary Care Provider Allergies Active Allergy Reactions Severity Noted Date Comments Levofloxacin 10/24/2019 Medications Medication Sig Dispensed Refills Start Date End Date Status lisinopril Take 40 mg by 0 Activ e (PRINIVIL,ZESTRIL) 40 mouth daily. MG tablet rosuvastatin Take 40 mg by 0 Act lizz (CRESTOR) 40 MG mouth daily. tablet pantoprazole Take 40 mg by 0 Act lizz (PROTONIX) 40 MG mouth daily. tablet levothyroxine 25 mcg Take by mouth 0 Active Cap daily . montelukast Take 10 mg by 0 Acti ve (SINGULAIR) 10 mg mouth nightly. tablet meclizine (ANTIVERT) Take 25 mg by 0 Active 25 MG tablet mouth daily. Missing or Magnesium 100mg 0 Act lizz Non-Formulary QID, Zinc 50mg Medication daily, Coenzyme 10 BID, Vit D2 1000u daily, Align probiotic, Chromium 200mg daily, Areds 2caps daily. nitrofurantoin, Take 1 capsule 8 capsule 0 10/30/2019 11/03/20 19 macrocrystal-monohydr (100 mg total) ate, (MACROBID) 100 by mouth 2 (two) MG capsule times daily for 4 days. tamsulosin (FLOMAX) Take 1 capsule 7 capsule 0 10/30/201910/15 0.4 mg Cap 24 hr (0.4 mg total) capsule by mouth daily for 7 days. oxybutynin Take 1 tablet (5 7 tablet 0 10/30/2019 11/06/2019 (DITROPAN-XL) 5 MG 24 mg total) by hr tablet mouth daily for 7 days Stop taking 1 day prior to catheter removal. traMADol (ULTRAM) 50 Take 1 tablet 20 tablet 0 10/30/201910/15 mg tablet (50 mg total) by mouth every 6 (six) hours as needed for up to 5 days. 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 Encounters Date Type Specialty Care Team Description 10/30/2019 Anesthesia Event Jessica Rea MD 10/30/2019 Surgery Rey, CYSTOSCOPY,BLUE LIGHT MD Feliz [facility] 10/30/2019 Hospital Encounter Feliz Le MD 10/29/2019 Hospital Encounter Pre-Admission Testing after 05/01/2019 Social History Tobacco Use Types Packs/Day Years Used Date Never Smoker Smokeless Tobacco: Never Used Alcohol Use Drinks/Week oz/Week Comments Yes 7 Glasses of wine 4.2 Sex Assigned at Date Recorded Not on file Job Start Date Occupation Industry Not on file Not on file Not on file Travel History Travel Start Travel End No recent travel history available. Last Filed Vital Signs Vital Sign Reading Time Taken Blood Pressure 133/63 10/30/2019 5:00 PM [facility] Pulse 70 10/30/2019 5:00 PM [facility] Temperature 36.2 C (97.2 F) 10/30/2019 5:00 PM [facility] Respiratory Rate 18 10/30/2019 5:00 PM [facility] Oxygen Saturation 95% 10/30/2019 2:35 PM [facility] Inhaled Oxygen Concentration - - Weight 74.6 kg (164 lb 7.4 oz) 10/30/2019 6:08 AM [facility] Height 172.7 cm (5' 8") 10/30/2019 6:08 AM [facility] Body Mass Index 25.01 10/30/2019 6:08 AM [facility] Plan of Treatment Not on file Procedures Procedure Name Priority Date/Time Associated Comments Diagnosis RHYTHM STRIP - SCAN 11/01/2019 9:20 AM [facility] TRANSFUSION SERVICE 10/31/2019 6:06 REPORT - SCAN PM [facility] TISSUE EXAM AP Routine 10/30/2019 10:37 Results for this AM [facility] procedure are i n the results section. CYSTOSCOPY,TURBT 10/30/2019 7:30 Bladder tumor AM [facility] Case Notes 60 [facility] PER [facility]AM Special Needs ([facility]) CYSTOSCOPY,BLUE LIGHT [facility] 10/30/2019 7:30 AM [facility] Bladder tumor Case Notes 60 [facility] PER [facility] Special Needs ([facility]) ABORH, MANUAL STAT 10/30/2019 6:39 AM [facility] Res ults for this procedure are i n the results section . TYPE AND SCREEN, AUTOMATED Routine 10/30/2019 6:05 AM [facility] Results for this procedure are i n the results section . POCT-GLUCOSE METER Routine 10/30/2019 6:05 AM [facility] Results for this procedure are i n the results section . after 05/01/2019 Results RHYTHM STRIP - SCAN (11/01/2019 9:20 AM [facility]) Narrative Performed At This result has an attachment that is no t available. TRANSFUSION SERVICE REPORT - SCAN (10/31/2019 6:06 PM [facility]) Narrative Performed At This result has an attachment that is no t available. Tissue Exam (10/30/2019 10:37 AM [facility]) Case Report Surgical Pathology Report Case: [id number] [facility] Authorizing Provider:Feliz Babin MD Collected: 10/30/2019 1037 [facility] Ordering Location: [facility] Received:10/31/2019 0846 SERVICES Pathologist: Yan Hays MD Specimens: A) - Urinary Bladder, TUR, RIGHT LATERAL WALL TUMOR B) - Urinary Bladder, TUR, RIGHT LATERAL WALL TUMOR - BASE OF THE TUMOR DIAGNOSIS A. 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 CPT Code(s) 55094 X 2 [facility] CLINICAL HISTORY [facility] and [facility] postoperative diagnoses: [facility] bladder tumor SPECIMEN SOURCE A. Urinary bladder, [facility] tissue. B. Urinary bladder, [facility] TUR tissue GROSS DESCRIPTION A. Received in formalin labe led with the patient's name, accession number and "urinary bladder, TUR tissue, right lateral wall tumor" is a _5 x 6.7 x 1.6 cm aggregate of irregular ware-brown to ware-pink [facility] pieces of tissue admixed wit h blood clot. The specimen is representatively submitted in cassettes A1-A15. [facility] B. Received in formalin labe led with the patient's name, accession number and "urinary bladder, TUR tissue, right lateral wall tumor-base of tumor" is a 2.5 x 1.5 x 0.4 cm aggregate of irregular ware-red to ware-pink rubbery tissue fragments admixed with blood clot. The specimen entirely submitted in cassettes B1-AB. JG/ew MICROSCOPIC DESCRIPTION Performed. [facility] ER Specimen Tissue - Urinary Bladder, TUR Tissue - Urinary Bladder, TUR Performing Organization Address City/[facility] Phone Number [address] [address] CENTER ABORH, manual (10/30/2019 6:39 AM [facility]) ABO Grouping A [facility] Rh Factor POS [facility] Specimen Blood Performing Organization Address City/[facility] Phone Number [address] [phone] POC-Glucose meter (10/30/2019 6:05 AM [facility]CIAL AID) POC-Glucose Meter 76Comment: : TESTED AT 70 - 110 mg/dL [address], [id number]: Rn Plasma Center/Technician Helper Instrument ID = [id number] for SEBASTIAN LINO Specimen Blood Performing Organization Address [facility]/Zipcode Phone Number [address] [address] CENTER Type and screen, automated (10/30/2019 6:05 AM [facility]ANCIAL AID) ABO/RH AUTOMATED (BEAKER) A POSITIVE [facility] Ab Scrn NEGATIVE [facility] Specimen Blood Performing Organization Address City/State/Zipcode Phone Number [facility] [address], [place] [phone] after 05/01/2019 Insurance Payer Benefit Plan / Group Subscriber ID Type Phone A ddress [employer] - MEDICARE MGD [employer]NA MEDICARE ADV xxxxxxxxx Maps Contracted CARE
--- OUTSIDE RECORDS SUMMARY | 2020-05-01 21:32 | XMS REPORT | Continuity of Care Document ---
:1940 Author Organization [facility] t Address [address] [place] [address] Care Team Providers Name Role Phone Nadine ZARCO Jeannette Primary Care Physician Rey WORLEY Attending Clinician REY Attending Clinician Unavailable Rey WORLEY Attending Clinician Adama Rea MD Attending Clinician REY Admitting Clinician Unavailable Payers Payer Name Policy Type Policy Number Effective Date Expiration Source Date HUMANA - MEDICARE MGD xxxxxxxxx [facility] CAREHUMANA MEDICARE [facility] ADVxxxxxxxxx[facility]aps [facility] Contracted Center Problems Condition Condition Condition Status Onset Resolution Last Treating Co mments Source Name Details Category Date Date Treatment Clinician Date 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 2-17 [facility] 00 Center Prediabete Prediabete Problem Active [facility] Foreign Foreign Problem Active [facility] body in body in [facility] - left ear, left ear, Lexa cain initial initial l encounter encounter Outp ati ent Clinics Acute Acute Problem Active [facility] right-side right-side Grace kes - d back d back Memoria pain with pain with l sciatica sciatica Outpat i ent Clinics 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 Grace kes - anemia, anemia, Memoria unspecifie unspecifie l d iron d iron Outpati deficiency deficiency en t anemia anemia Clinics type type Hyponatrem Hyponatrem Problem Active [facility] ia ia [facility] Dizziness Dizziness Problem Active [facility] Hyperlipid Hyperlipid Problem Active [facility] emia emia [facility] Hypothyroi Hypothyroi Problem Active [facility] dism dism [facility] - (acquired) (acquired) Me moria l [facility] Primary Primary Problem Active [facility] generalize generalize Grace kes - d d Memoria (osteo)art (osteo)art l hritis hritis [facility] Elevated Elevated Problem Active [facility] prostate prostate [facility] - specific specific Memori a antigen antigen l [PSA] [PSA] [facility] Pneumococc Pneumococc Problem Active [facility] al al [facility] - vaccinatio vaccinatio Me moria n n l administer administer Ou tpati ed at ed at ent current current Clinics visit visit Adult Adult Problem Active [facility] general general [facility] - medical medical [facility] exam exam l [facility] History of History of Problem Active [facility] insect insect [facility] - sting sting [facility] allergy allergy l [facility] Restless Restless Problem Active [facility] leg leg [facility] - syndrome syndrome Memori a l [facility] HTN HTN Problem Active [facility] (hypertens (hypertens Grace kes - ion) ion) Memoria l [facility] Microscopi Microscopi Problem Active [facility] c c [facility] - hematuria hematuria Lexa cain l [facility] 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 [facility] - leg leg Memoria l [facility]ics Lymphangit Lymphangit Problem Active [facility] is is [facility] Leukocytop Leukocytop Problem Active [facility] enia, enia, [facility] - unspecifie unspecifie Me moria d d l [facility] Medication Medication Problem Active [facility] side side [facility] effect effect [facility] 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 [facility] - diabetes diabetes Memori a mellitus mellitus l without without [facility] complicati complicati en t on, on, Clinics without without long-term long-term current current use of use of insulin insulin Adult BMI Adult BMI Problem Active [facility] 26.0-26.9 26.0-26.9 Luke s - kg/sq m kg/sq m Memoria l [facility] Serum Serum Problem Active [facility] total total [facility] - bilirubin bilirubin Lexa cain elevated elevated l [facility] ent Clinics Allergic Allergic Diagnosis Active [facility] rhinitis, rhinitis, Luke s - unspecifie unspecifie Me moria d d l seasonalit seasonalit Ou tpati y, y, ent unspecifie unspecifie Cl inics d trigger d trigger Mass of Mass of Problem Active [facility] urinary urinary [facility] - bladder bladder Memoria l [facility] ent Clinics Gastro-eso Gastro-eso Problem Active [facility] phageal phageal [facility] - reflux reflux Memoria disease disease l without without Outpati esophagiti esophagiti en t s s Clinics Type 2 Type [address] [facility] [address] diabetes diabetes [facility] - mellitus mellitus Memori a with other with other l diabetic diabetic Outpat i kidney kidney ent complicati complicati Cl inics on on 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[facility] - of lateral of lateral Me moria wall of wall of l urinary urinary Outpati bladder bladder ent Clinics Proteinuri Proteinuri Diagnosis Active [facility] a, a, [facility] - unspecifie unspecifie Me moria d d l [facility] ent [facility] Allergies, Adverse Reactions, Alerts Allergy Allergy Status Severity Reaction(s) Onset Inactive Treating Comm ents Source Name Type Date Date Clinician Levoflox Drug Active 2018-[address] acin Intolera 2-11 [facility] - nce 00:00: Medical [address] [place] [address] Andreas Adverse Active diarrhea, [facility] omycin Reaction bad taste, Luke s - dizziness Memoria l [facility] Levaquin Adverse Active severe leg [facility] Reaction cramps [facility] Social History Social Habit Start Date Stop Date Quantity Comments Source Sex Assigned At [facility] Smoking Status Start Date Stop Date Source Never smoker [facility] Medications Ordered Filled Start Stop Current Ordering Indication Dosage Frequency Signature Comments Components Source Medication Medication Date Date Medication? Clinician (SIG) Name Name Accu-Jose Antonio Accu-Chek 2019-0 Yes Na Mccoy as [facility] Claire Plus Claire Plus 04-22 directed [facility] - 00:00: Memoria 00 [facility] Accu-Chek Accu-Chek 2019-0 Yes Na Mccoy as [facility] Softclix Softclix 04-22 directed Sara es - Lancets Lancets 00:00: Memoria 00 [facility] Clinics tamsulosin 2018-11 2019- No .4mg QD Take [address] (FLOMAX) 12-31- capsule [facility] - 0.4 mg Cap 00:00: 23:59 (0.4 mg Med ical 24 hr 00 :00 total) by Center capsule mouth daily for 7 days. oxybutynin 2018-11- No 5mg QD Take [address] [facility] (DITROPAN-X 12-31- tablet (5 Grace kes - L) 5 MG 24 00:00: 23:59 mg total) M edical hr tablet 00 :00 by mouth Center daily for 7 days Stop taking 1 day prior to catheter removal. traMADol 2018-11- No 50mg Take [address] [facility] (ULTRAM) 50 12-31 tablet (50 L ukes - mg tablet 00:00: 23:59 mg total) Me dical 00 :00 by mouth Center every 6 (six) hours as needed for up to 5 days. Max Daily Amount: 200 mg nitrofurant 2018-11- No 100mg Q.5D Take [address] oin, 12-31- capsule [facility]ukes - macrocrysta 00:00: 23:59 (100 mg Me dical l-monohydra 00 :00 total) by [facility] te, mouth 2 (MACROBID) (two) 100 MG times capsule daily for 4 days. Missing or 2018-11 Yes Magnesium [facility] Non-Formula 2-16 100mg QID, Grace kes - ry 13:59: Zinc 50mg Medical Medication 49 daily, Center Coenzyme 10 BID, Vit D2 1000u daily, Align probiotic, Chromium 200mg daily, Areds 2caps daily. levothyroxi 2018-11 Yes QD Take by [facility] ne 25 mcg 2-16 mouth [facility] - Cap 13:57: daily . Medical [address] [place] lisinopril 2018-11 Yes 40mg QD Take [address] (PRINIVIL,Z 2-16 by mouth Luke s - ESTRIL) 40 13:29: daily. Medic al MG tablet 12 [place] rosuvastati 2018-11 Yes 40mg QD Take [address] n (CRESTOR) 2-16 by mouth Luke s - 40 MG 13:29: daily. Medical tablet 12 [place] pantoprazol 2018-11 Yes 40mg QD Take [address] e 2-16 by mouth [facility]ukes - (PROTONIX) 13:29: daily. Medic al 40 MG 12 [place] tablet montelukast 2018-11 Yes 10mg QD Take [address] (SINGULAIR) 2-16 by mouth Luke s - 10 mg 13:29: nightly. Medical tablet 12 [place] meclizine 2018-11 Yes 25mg QD Take [address] (ANTIVERT) 2-16 by mouth [facility]ukes - 25 MG 13:29: daily. Medical tablet 12 [place] Lancets Lancets Yes Na Mccoy as [facility] -11 directed [facility] - 00:00: Memoria 00 [facility] Clin[facility] blood blood 2020- No Na Mccoy as [facility] glucose glucose 9- 06-07 directed Luke s - test strip test strip 00:00: 00:00 Memoria 00 :00 l [facility] Clin[facility] Levothyroxi Levothyroxi 2017-11 Yes Na Mccoy [address] [facility] ne Sodium ne Sodium 2-11 on an Luke s - 00:00: empty Memoria 00 stomach in l the Outpati morning ent Clinics Mobic Mobic Yes Na Mccoy [address] [facility] Augmentin Augmentin Yes Na Mccoy [address] [facility] Olopatadine Olopatadine Yes Na Mccoy [address] HCl HCl in each [facility]ukes - nostril Memoria l [facility] Lisinopril Lisinopril Yes Na Mccoy [address] [facility] Meclizine Meclizine Yes Na Mccoy TAKE [address] [facility] HCl HCl TABLET BY Lukes - MOUTH 3 Memoria TIMES A l DAY [facility] Cipro Cipro Yes Na Mccoy [address] [facility] Pantoprazol Pantoprazol Yes Na Mccoy [address] [facility] e Sodium e Sodium [facility] - Memoria l [facility] EpiPen EpiPen Yes Na Mccoy not [facility] 2-Gerald 2-Gerald defined [facility] - Memoria l [facility] Crestor Crestor Yes Na Mccoy [address] [facility] - [facility] l [facility] Meclizine Meclizine Yes Na Mccoy TAKE [address] [facility] HCl HCl TABLET BY Lukes - MOUTH 3 Memoria TIMES A l DAY [facility] Clin[facility] Glucometer Glucometer Yes Na Mccoy one [facility] kes - Memoria l [facility] Clinics Levothyroxi Levothyroxi Yes Na Mccoy [address] [facility] ne Sodium ne Sodium on an Luke s - empty Memoria stomach in l the [facility] morning ent Clinics Singulair Singulair Yes Na Mccoy 1 tablet [facility] - Memoria l [facility] Clinics Immunizations Ordered Filled Immunization Date Status Comments [facility] e Immunization Name Name FluNYDIA FluAD 2019-07-25 Completed [facility] - 00:00:00 [facility] Vital Signs Vital Name Observation Time Observation Value Comments Source Systolic blood 2019-10-30 17:00:00 133 mm[Hg] [facility] Diastolic blood 2019-10-30 17:00:00 63 mm[Hg] [facility] Heart rate 2019-10-30 17:00:00 70 /min [facility] Body temperature 2019-10-30 17:00:00 36.22 Latoya [facility] Respiratory rate 2019-10-30 17:00:00 18 /min [facility] Oxygen saturation in 2019-10-30 14:35:00 95 /min [facility] Arterial blood by Medical Ce nter Pulse oximetry Body height 2019-10-30 06:08:00 172.7 cm [facility] Body weight Measured 2019-10-30 06:08:00 74.6 kg [facility] BMI 2019-10-30 06:08:00 25.01 kg/m2 [facility] Procedures Procedure Date / Time Performed Performing Clinician Cole e RHYTHM STRIP - SCAN 2019-11-01 09:20:18 Provider, Default [facility] TRANSFUSION SERVICE 2019-10-31 18:06:03 Provider, Default [facility] REPORT SCAN [facility] TISSUE EXAM 2019-10-30 10:37:00 Feliz Le [facility] CYSTOSCOPY,TURBT 2019-10-30 07:30:00 Feliz Le [facility] ABORH, MANUAL 2019-10-30 06:39:00 Vielka Bateman [facility] POCT-GLUCOSE METER 2019-10-30 06:05:[address] [facility] Center TYPE AND SCREEN, 2019-10-30 06:05:00 Feliz Le JERSON Mora - AUTOMATED [facility] Encounters Start End Encounter Admission Attending Care Care Encounter Source Date/Time Date/Time Type Type Clinicians Facility Department ID 2020-04-22 2020-04-22 [facility] [id number] 13:20:00 13:20:00 [facility] - [employer] [facility] Medicine Outpati ent Clinics 2019-11-21 2019-11-21 Office Rey DONI [id number] 22 14:51:13 16:43:49 Visit Feliz AMBULATOR [id number] Y [id number] 2019-10-23 2019-10-23 [facility] [id number] [address] 13:20:00 13:20:00 t Medprex s - [employer] [facility] Medicine Outpati ent Clinics 2019-08-02 2019-08-02 [facility] [id number] [address] 10:02:00 10:02:00 t Medprex s - [employer] [facility] Medicine Outpati ent Clinics 2019-07-25 2019-07-25 [facility] [id number] 09:40:00 09:40:00 t Medprex s - Drive [facility] Medicine Medicine Outpati ent Clinics 2019-05-22 2019-05-22 [facility] [id number] 09:20:00 09:20:00 t Medprex s - [employer] [facility] Medicine Outpati ent Clinics 2019-04-24 2019-04-24 [facility] [id number] 09:40:00 09:40:00 t Medprex s - Drive [facility] Medicine Outpati ent Clinics 2019-02-01 2019-02-01 [facility] [id number] 09:30:00 09:30:[address] Luke s - Drive [facility] Medicine Outpati ent Clinics 2019-01-16 2019-01-16 [facility] [id number] 09:25:00 09:25:[address] Luke s - Drive [facility] Medicine Outpati ent Clinics 2018-12-18 2018-12-18 [facility] [id number] 13:34:00 13:34:[address] Luke s - Drive [facility] Medicine Outpati ent Clinics 2018-12-18 2018-12-18 [facility] [id number] 09:00:00 09:00:[address] Luke s - Drive [facility] Medicine Outpati ent Clinics 2018-12-15 2018-12-15 [facility] [id number] 10:47:00 10:47:[address] Luke s - Drive [facility] Medicine Outpati ent Clinics 2018-10-24 2018-10-24 [facility] [id number] 08:30:00 08:30:[address] Luke s - Drive [facility] Outpati ent Clinics Results Test Description Test Time Test Comments Results Result Comments Source Tissue Exam 2019-11-02 17:32:00 Test Item Value Reference Range Interpretation Comme nts Case Report (test code = 104) Surgical Pathology Report Case: [id number] Authorizing Provider: Feliz Le MD Collected: 10/30/2019 1037 Ordering Location: [facility] Received: 10/31/2019 0846 SERVICES Pathologist: Yan Hays MD Specimens: A) - Urinary Bladder, TUR, RIGHT LATERAL WALL TUMOR B) - Urinary Bladder, TUR, RIGHT LATERAL WALL TUMOR - BASE OF THE TUMOR DIAGNOSIS (test code = 3220) i5rudNRdKWDaf1gnKTNbxDQrObUsZaZwHkFqHn pCTiCKyqqeMtUTgel4YoL5TbOePaNVhpqcTpPZNc HaksrhfrZZLeOYO1pvTgQHSvHVylKKQyYMfmNp2x bZMaeAaoTkPxBADzw8xyubTZszhejLz9j9bsRJBz DgY1jQHbAWsoI4vjtjAoaHYtTPUyENs3jA58RYId qH4hbNCfRPwvwnKxEmM1HHffPPPlXsM6UEIbaEZu ZRHwO9fkLNGbGPjyXKGvAKoxcNNxHND4dLotd4Q4 fOFsyGCmmMdcQrThVnUgZBZUf1IuSYn2sEhqP2Rg UYJsCoH7qMCtSEMhVEnfLWKsAMZrnzH9uO46XHbl msD6jWSdy5Okh83bg130zZ3rtKFxGNK2LRBpTRTl yXSsKINcCXI1PHSppMNvQ4i9MxIblWPvM7D1ZdQe cKFcD9G5AxIhxXGyU8H2SfPgyZOlJRQkhLQnXp1o nKOhlROrzk2sai56ZRG5g6ZsiDbiZRB4JYQ4UfYi Xg2ipGMdXULhZA9oLpSjiUEfXYRofd74aTdnEKlv mrXqcM3fJvWiLPDjjKBgDXJkYK7elSJaJCEzyB2w llkjZJUxKsJnwmkwBZEhhJntkgVfWu2dwRilNTO5 GUrhX0bboC6vYoI3RHynA9qfoH7jIOn6PTbxiNQ7 RYZqpN2nJN7fzjebv5lkRoHfKJ3zjjqta0llGzMv MF0skui3a3fvVoWlZF2vrdqfl6euByEpAWsmBHGs vwiuNNEtp5LqlckrZSYio8VzP6SqaLszK92taJip X05eEHUkaZjgxU4sqVamhP5uAbIqWaTpVAbysEeh tLZrcjbzOXknvqTqLGjaodxsGKEfGAyfA0orFsFr ASAomSddHMotn3WeBNBrGPPyCoFnGM1jMSXBEF0D UlkgQkxBRERFUiwgUklHSFQgTEFURVJBTCBXQUxM VHCAGM6AJBONYZFRMStwxCZiXKFtTY0rHLIFGLfD WHIHCHINH9TGVJsFPTfvZ9HYY0zTL43FVSFBI7vp R7MJDDObFUiVQcOXAdNSKNQjNInjKH9OITHBKjIs PP2KGcYHYO2AVxWbLBFZAWCTHGnfNQDjZZHbOTSN QUpWVDpWOPGWI9JkLRuXMDaiOzRLU0YRXJGpTK6L JCTHM48orQMlHIWxIS9yOABPJ1MAOSAHBkAEXa8O YqtGWLkMMVAKFMJAGxDfLI9WSU4RRRUPOdMJAQLI JNKORGCNHP4QLxqoGGNpkAFeUWGuWNISTsfGEHFB LVIEALVVUKPaIFEQM0DtB5TuBTLPZ6YwSDWITsWY RubjMTGtbSXtFBrkeRRsfjirTDmtdeD6XSLaUBgb XGYwXGZzMjBcbGFuZzEwMzNcaGljaFxmMFxkYmNo OXRgUZwaM3ghIkJnJyTfWPUhHWsjbDGrgbofABoq bqKaPOvvinseSGSgGEqmS7tiOvWbJLHrkTloRQsc g1TgXVHeEGWvTiRiLK1qLMWPGUeIHZWJXWKQZ0KJ JHjMJUaeZ7NMX5lQC71TZHTIR9oyZ0ABDNJpONlQ NoMRZqAIAQPnOBfkNk6JSF3MOTFHYyYoqCCvINMf UJQjYBgoDDIiUZOhLiHtpLxgxN4hIbDbByCtJZnx TN9wXLBaX7craWFrHROcOIDlQ2ffBuWpiN6nkGgg UEzpbuYyBUNkZP2mRXMCR3LGVYXXChJYQf3WGanP GOyBQSVKXQHESbKjLW0GGZ5QWPZMJvPXISCSMXCC DOIUQY3WRwssxEKuybvmYPrjkoOhFTeqerqoJUPc HJwlJ8nhMfJuOXLwfRycGUfaw6RgNZQuUVTeQcFn tIUxeSaynyRxZKkni1PdHCzyWLTkZX3uoVahRMUh GJ4yQZLlG9jhiU5wwxc2DmFwCPNtPbZ4FKJzpbH7 Bio0QNJcLJurv2vis2HkCHEsETx0nQiqQhDeMAUx b7dtriQcCjKmXESkEINcOLPmeKLfN097n4tqw6wt gvNejBD3VAEpLFF5IDziilUevdA8YEufwAUyCjE6 AFctygSxPAhiycPturYlPfg8UXPpR289LNR9eGyd y0ihSHE7QUEcHLMvTqGlLd1jxNJrY859KEIrJXKV SUFkkLn2WRUiaqHgmdYnhDENp838V546b5lbVGPb qgKapMfGamzor4jxG097OTCknBDxsvMaPhGpKTJe vKEffHJ4NZSuRN4ngaakGWfaPEyvEMRhiaG7RYVr hJDjR2UqAPCuKU3ldyhnVWO4EItmCPQvPGS2WoZx VVImo8Mksbn8EbCsxm8uxq94SPH5x5RsrAikONR7 NGP5BbUtCp4knNGwBFSsXM4gOfBoeGPrRDHyhp74 kOspOIuzBYW8UJEmhlOpb6Nfq3lbFzNqjhPwW6rw J5RnQMIfRVHqDINhZcPgcwAxe5Yms5OnzQAheXc8 v9xxFARlDDKtuAsmz6alUCD6TNEcxNUaG9kuwG8o RLQeQJ5moffsl3jqFKycYBusISEduNF9tpW8XIMg bZGjL1JzzB6uNJLlIVbcTUDhkdy5VdOqJm9agMTc eTcyMFxzYmtwYWdlXHBnbmNvbnRccGduZGVjXHBs YWluXHBsYWluXGYwXGZzMjRccWxcbGFuZzEwMzNc xKqjkIyiJCdgXhIcGXPgAMyiS4luRhOuFxZeYvl7 TCEgnTDtHCMaPtg9TWKklFWvAWLJrWzubS3qOSWb vDoyxG6sgEW1GLEgyjCklWIRpP5yIGEJmU3sQnK6 BfKeWmG8ZIGhHInktCYgvU5= COMMENT (test code = 3359) b1kdbJYjCKKodZGqCcRgDLRmJLVea8rgXFRsoGGg AhUgAbJfAkGyBstzlZBcECVzReOpn6kui928zZAt o2inCXXsGnQ3kNAoQHGexRPlE160y7nag1khktUa cKH0MNLlLZT3BTzqpcCteaN8QMfqwLXiLoP7WDqx rmMfWRolqtJyudXiAla4TWVgZ542EET3yOeib4li GUF5QYInPIUiCdElEv8sfORnZ702DPKwZRDQJNWn zWw3UGBrfyEjxuYwzHQXm132K832i8xkANVoghEo oHeBtmkiz8yqJ935BSVqmZMvaeCuRzPeCHTmgFXg yQZ5QETbWT3qfuxkOgWrSW3ldxhjCjDjRI4dfyl0 PzSiLA4kgvzhUcNbPAzySJDonotxWCLgj0Mxeweh FW6uY0Usj2V4jL4ehNGwYUShdGHqYdAfYUMwlf0k zRVeTMoyh0GhJQW4dkS0eXBciSHkNODhWD70Gvih s3FlLqajVRL3LGRzowQcq5Dnf9ztAoVgliKzV5jl L7WsQIAhGMReBBVtShWjpkYed4Jol3HvwCQyxAm2 s5xjRSPeFXEfoDxbn9hfKWS7JSCqG0Z1gUSvx2pg XKpdWFQlvSS2agodFBrwZOBihhX4jhieFXulFSTn dEN0vkykCVysRMZcXwL8ckxxXQlcBMWkTGL3XOhy o989YPD8BNkmDdihADenEPYvfuRwrbLbuOciPMVt ZCGrTZijDNMwMPprNLAtTKHsByYwgOqinJwuuI2c XtThMzNxYFqeVN8hKLPsL6hssVGnBDBzEFNgW1je YzBlaS2vvAyoEOmbtiNrAHNpJYNqkuVsr9z6IOPi z73cc61vivYwemPitxViHD91maJtsyDdo8BeYYVv AT4hKHJtm6RbdArwZKIkzNHyNLH0uP9wPL1ao5Qq ICBccGFyfQ== CPT Code(s) (test code = 3357) g6oewMLaYAZdoMVbYbHvNSHiVWCzf0xnIEYa bGFu YbKmWeKpWdErLygzrGKnROXjLiDod9hjw660yPNk c6lyKHBsAqZ4nBAfPJKkqGYoN589y5coy5yevoSg hSN3SDRqPTW8KCuptpRyxtX4YCbxuSVyYyF1SIog xkTgJCqjtwNxipNjVzl0JVHbY079MBK4dPsaj4kj KMI5WPVeRXJmNxIzPy2xqFBvP891DWKzKSTJWRHe rUu3OJPebmJznrDkuPMLa697E222u3reFRYiouPi oBrJinpxv0ckS296LPTcgYKidpRjWpYhBOMijETg qJQ3VAKoYO2duwiyEeUvMF6anvlbSnNlXI9cmfi9 NbCsQP7pbxdxZjIqENarKZLlfbafQHBvb8Dksxsp UB0hP1Mna4C2kM7sjGYuTOIydJWnVqSsXHFlpq5w wNLcHVsre6WnRJC3htF3eOGwkWNjMENuGC80Mfqc c8PtEgavIYG2RPPkvlKtc3Yrb3wwXoUrtkBsI6ax I1SwIRYdBSHnACZzUiIgmdRzf9Szs5UuaPUajDd6 p4ifNEGkINKnrBfql1xlHIU7SSWmG1Y9yVJiw8yd OMsuRGIaxBV9zxhfHDxsXXKbcyW0zwijZOevQLEg zHU2jnrbRKtnWYJaOvQ6qoktUAquFKVrXCS6HWsq o168MCI4QOzcGigxFBttFIScayMqhwQnjWewWGHw UGSpQMdbIEJpLBopEFBrDYOeRkKniKvohMfqmU7y SzZrYfAmWWdhOB9rNPWmC1mnhNQmPTGnHHLuG7dc CuKoaI7upYagRWsgscQqGHu2ZkU8ZSnoHrclSLK1 CLINICAL HISTORY (test code = 3356) b7axaCDjXHZafYLvDhDsEIKuJUIyk2l cZGVmbGFu FsFyBsXgQeEgQmtlnUNsNDJcWnEcf2fnk077lCVa t8rbBKXqUnD6iZRnCVGgoLVnE045a7bec3zxulHo uPD2WZZfTXP4MGemlsStqwR9MGwmtGRkQvH9YFuo nvJqKDgnjmQhlaEhDha5DMTjA104SHS2sDjby9xx MJN6XWDiYPDuSoPqQw9ojKKiB671SSDwWWKIZDTz cEk6BGQfitBsduQdlQMIx123G130h8paQUCdsqTq yQaCxqwds0muZ810UYBksOPfcyOmPyHgAVAdjOQd hUL1TODhXT1jrxasYdFtRI1avsvnHsSjNX9ljza2 ZkKhMC4edbxyCgDoCElzURTfymxfXYVcd4Oafwte FE9vB7Pxd0H0sR0arLPqIZZukXBpWiEhEHHzud7k oLViTNzfs3KpHOF0dsL0xGCmmLOtIPUiTD97Fllx q8MgLdpbZXX0WZClanKan8Aav6ikBkLovoZrM7nz O6XlYSWrDLHwNJTwXpLphgCql8Urm7PhlOUomOs1 e2ewHLVjPTVvdKdcz1vcWGN2KNDnJ4P0rDJda3ls CIkmRXGkzAI9finpZBdiNRFcivE6lfwxIGufVLSu tVV1hcqqCUcgPRLzSvA1ipsfMYdiKDSkHIB6GLxn c232ZPI4GCxfHpqeMLokXTHmmwRfrpVspPioWXPc JZOuVEthKITsOWosZPDcRTNhUmLzwQrgiOwatT5n XhHwOjFpSAluDH3iDVPbR4gytQGsZVAjIRNpZ0gv GkAmjB4gtPftPLpjqlXwFAMjUF8dYHSxoAm3YBPa dxHbuV9yiU9uGKSbwNu5KXWhuYSsos9eEUD2LGYy NXPhGRHweXHyc3FzkMVanZ== SPECIMEN SOURCE (test code = 3377) h3xuxRWqQARjuAJzQdBvHIBbAYYbl2yz ZGVmbGFu SvTwWkFoQzGxFrtxzSBiRIUdIpSmi4dsl315aDRb w8igGYByFeZ3bMVcCFZkaFAkG141j8krv6rlnrYo iEP9EGJfTMA1ZUzczmVrxvR6ULcylKSjPtB6VAes vqIkGKayfqYbbdRnGkz7CHOpR497BWW3hVgew6pp HFT7PTTsKNVrMvNbJz9toVAkA421XDAqVHIILXUf qBx4BHCotcUphiGbeVBLa265Z274w1ocEQYhceHr rZoYfutuq5xcB203PCUrfPOiyxSgOiPpIIJnqHHg yQL6FTNpUX1cuelxViSoSV1ikvuqNfNsSE6mzof1 YeXbYR9zmlqlUgBnACurETPmmqnjJCRll7Yrngzh ZB2cB1Qrf7W7zF7ocMGbBTXzsCEmEyOvUGSjhu7y uCGfKEhin2JaOCG7vyI5cLScyLNiHRBeUM79Ennw c4RsCmryOVA1WUNyfjWjg0Btr6etGkIdxzVbP9pp O5AsOWEkSXHyFJLtOvBisuLuk7Ktm1WyhLUlaHf3 n1iuJJIjBJIxbOrok1kjGCP2TZDcU9J7lPJry3ir NJtnXORpdEA6grwdWBbnNSQyurA0ftaoUSfyRXOd vTW8shkvYOkiAKRgZsY9mikfQCoxWZWwTJB7BGbl b390EQG4NQclPtwxYAyiUWHebmKyalZdyNlwUDDm SSVfYKxmTROpDMeeKSZdEIGhUcXcqCcugPqxvF5s NbFmBdPoKSowFC4kAPDoC3svlJGgZZYtGCFmJ5si UrNpvW5ooWgfPMqldaAgOMRxRREuuQ7xuajiRjub HEOuijijUDFSNKGet7B2WL4dVc7mQFDpvoIhaMRd mYKxTSVjCXZRFEDhoDoyi1LtGOskFAT3 GROSS DESCRIPTION (test code = 3366) b3ffzWSeEYDetSMtSxWjTIKaTCTcc2 lcZGVmbGFu BvGbZiVxBbMsTqyovSZxEYLwAkRvg3qxk534uUBw n5ayIYOpTyD7lQLsDBTrrVPbU631FYVqBSaty3um g2YkRGZhkPLmp7A5UBILsxlxvPp8hUrwA00wv2Z4 LezzK3zhCRRaAONjN4IiXH3bBZQeEmp1UMG3SRY6 JDWaNHAfB7TwDF4mFUYdmBLdTGx6i1bonLpyGFHe WTV8x3zzUQykkfZjDY1fhz5wkMo1x7slfgIvQPPf WTHhvRFCHSPeJ9CpqFufOb0viSu6fHhdSgpuZUT0 Euh1KK7qus07njd2zAnhGHUptjnsJnE3BLbzGULk ahzrSRo2FPvcWATskRltJSomMBGjgbbzBSldSROb qNokXVkxXMOfMkcjPLbwVRIoDRQ1TPaev821PRF2 SLael9msr6clyWWbCgp8ZNPtRfYaLbhqYEfqy6Jj k0dzCQBxvr6nKJH1xVVdaZukx2R3bUBeVWGwpJUf giAjTNGmLxE7SRygEL9cqw49LCHyJDU0jx6qpQHg rRzuzaFjzSRgTZbpQ4NjLRVmu873EOTzC0SlRDHb z2Y9vsDjEsKwBFPknAN0adS1XBXmGYl7lXKlqlG4 qgYnhYShI3swuC66FdDqyNGjK9RliU92IoQhdMLt W2ZfeO53LhEuoTArG8FrrH37ZfJumMVjEASsoNWa Sq7asKTxpAHot3FbqAHeQOcqE29ev492MGFraxMf F5dxbBNqqvytlPIvgfplFOhchcB0ZDNdJFGxQZkd XGYwXGZzMjBcbGFuZzEwMzNcaGljaFxmMFxkYmNo ASAnVGwmW4qfLjDlMyBnRSOVGxAGSEKakAZbZMGt teKkz6RdMNajimSxWVWrqSZoNYackZabqIqaPNYf rIkdavHdhhFzIF2kPLDhX3Ntx3Bub38daqIxLmJt IGFuZCAidXJpbmFyeSBibGFkZGVyLCBUVVIgdGlz b8DiHHBrlKncmZQbVUDmwoTzNKdjpMvohFXoq4Ej VJooALIlCjOsgGE6JkbzkOQdUwCmZ45zDMequgWq GAHgFG2aCLsnsqZrhAakssS0UE0xRlHjk57jaL7g tVOeCUJtmbkceXwmQ7RrDI2aVXRke0D9DNOpMK9u eUMhTLuthSetHimbw2CnU6qmbL7yDSkzGLXgQYTc cPVkYFbgMUWanYCqv1AnbBO8wMKgpOaxb4RwdJg8 yVEkYCxhAVTpt0XouLTbgeRGRQ2TWTBqPAbjDKEf cGFyXHBsYWluXGYxXGZzMjBcbGFuZzEwMzNcaGlj bXsrGCqxNcSwNTWrBGpnD0xhWwSrVbSzBSCKKsZC TEKpoKBeLWSyavVsb7AzCNzmhjEoCPRscHFeVCkl wWyvsAlcGORcgPnmftVubrSxGA5rURMjJ7Ivw3Rb z75eajJnQsWlAVShOPDzyVFxgdVpnLMleSDuKUZy UDMOZJNtkOexo8VbZDWzhHhccHJnJVCdakWvKNnc rDgtmWEhj0KpBkMfXYThVsK3aX1vrgJcrKKpMXNg OmQacDGxUpSkfZJeWkUjU40yQQwzktQbQNObQQ9r RImrkqFnhHrvxnD7YI1mgfBkYNVqFXPmbl3jxM7d MHR5XkDtwsktmJpct4SmBRWfPVskSX62rrZaXB5r pVKgGKcgnJyuWuotx2NfD2sdzA3kVEbtEPMaSBEs wJRlMTNonUswFYd4GNQ1Ss2mqGMhFQCjfbQkTGKk HUL6CLAfWuXjGPBfCIfGF1N4SXBfIKkwFHHiYGZv MjBcbGFuZzEwMzNcaGljaFxmMFxkYmNoXGYwXGxv I9ikDrRmVcBsMJpqSEY7 MICROSCOPIC DESCRIPTION (test code = q5oqiPWzUSAhnXRzYuFoDPNmPJUwt9 [place] [address]) OnQiRcBeVsHoUbllrCOaOGRzPlBca0edm152qUEe x1fiJFEbEiF3kJZtJPTbtVUdY630b0uzs7sdwgQh nEN7QOIgBSZ9QWamoyVdzaW0RUnrwYAaCtU5WZnq kiEkNGrfmwMbcxGzVgv4YLKiM491TVE4aVyty6ft NWF0LXQoRGCtQgSuJn3ivXBlC974LRKvDKUNMYYu yRj4TPWsjcRmhqOrkHQWh089K375t4weNBYzfjAp yXaOyrhqo3smF439DROkvIWrikZyTcXaCDVgmFFf dUZ8MLHsIQ1fxshrLtPqOD2eqmyjRpHnKU3upom6 BjKdHR4yeozqEsIfFCssRRKqlunuSPYyf7Ipizhy MM9wX8Xtg4G4uR8wlCPiMAPuhZHqJlWlTDDmsn6c hUEcBIxqj7SrBPA3voF1bBPctXCaZWUrEW05Ghnm s3OdTejjCWS4HGSdszTyc3Urk5lwMcJigjOkJ5vw L3ScDTPkPMLiGAGcZfOtfiVcd3Dmf8JqsTAqyWz5 p4xyYXQcHCXqnMfet7ecEFN2VESzE1P9hPVce5ya ESrcLIRpwAF6mcnvHOtaTIDrxnL1gocwZAnmQCXd qLF7xnkwFTqeGFLzCpM5nvnkKKigXWHpTAV2GBfs b272CVY8HLenVbvoVZztODXacqSyvbXhyOfyMVDp YIXmOOajZQBqPKwbBVUfRVLxBlWwgIajqPilwL2r EsDtQpJeULuxDT6yYRHsJ7atiARdINFhYGNpZ7mm UcZfeX1umQmkVHfuimSvYGRgdzLyet1bLQ5peSLi fQ== [facility] [id number] 17:32:00Surgical Pathology Report Case: [id number] Authorizing Provider: Feliz Le MD Collected: 10/30/2019 1037 Ordering Location: 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 [...] 1.5 x 0.4 cm aggregate of irregular ware- red to ware-pink rubbery tissue fragments admixed with blood clot. The specimen entirely submitted in cassettes B1-AB. JG/ewPerformed.ABORH, [id number] 07:13:00 Test Item Value Reference Range Interpretation Comments ABO Grouping (test code = 2588) A Rh Factor (test code = 2589) [facility] screen, [id number] 07:10:00 Test Item Value Reference Range Interpretation Comments ABO/RH AUTOMATED (BEAKER) (test A POSITIVE code = 2260) Ab Scrn (test code = 890-4) NEGATIVE [facility] Diego[facility]-Glucose [id number] 06:24:00 Test Item Value Reference Range Interpretation Comments POC-Glucose Meter (test 76 mg/dL 70-110 : TE STED AT [facility] code = 1538) [address] [facility], [address] 30: Insurance Attorney/Techni jordana ID = [id number] for SEBASTIAN LINO Lab Interpretation (test Normal code = 39194-9) [facility]SE [id number] 06:24:00 Test Item Value Reference Range Interpretation Comments POC-GLUCOSE METER 76 mg/dL 70-110 : TESTED A T [facility] [address] ([facility]) (test code = [place], 1538) [address]: Insurance Attorney/Techni jordana ID = [id number] for SEBASTIAN VALLE PH
--- OUTSIDE RECORDS SUMMARY | 2020-05-01 21:33 | XMS REPORT ---
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 Problem Acute right-sided back pain with M54.41 Active sciatica Problem Foreign body in left ear, initial T16.2XXA Active encounter Problem Elevated prostate specific antigen R97.2 Active [PSA] Problem 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 Problem Iron deficiency anemia, D50.9 Acti ve unspecified iron deficiency anemia type Problem Leukocytopenia, unspecified D72.819 Active Problem History of insect sting allergy Z91.038 Active Problem Lymphangitis I89.1 Active Problem Medication side effect T88.7XXA Activ e Problem Controlled type 2 diabetes E11.9 A ctive mellitus without complication, without long-term current use of insulin Problem 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 Problem Allergic rhinitis, unspecified J30.9 Active seasonality, unspecified trigger Problem HTN (hypertension) I10 Active Problem 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 Active Problem Type 2 diabetes mellitus with E11.29 Active other diabetic kidney complication Problem Microscopic hematuria R31.29 Active Problem Mass of urinary bladder N32.89 Acti ve Problem Gastro-esophageal reflux disease K21.9 Active without esophagitis Problem Serum total bilirubin elevated R17 Active Problem Adult BMI 26.0-26.9 kg/sq m Z68.26 Active Assessment Iron deficiency anemia, D50.9 Acti ve unspecified iron deficiency anemia type Problem Prediabetes R73.09 Active Assessment Proteinuria, unspecified R80.9 Act lizz Problem Restless leg syndrome G25.81 Active Assessment 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 Problem Dizziness R42 Active Assessment Allergic rhinitis, unspecified J30.9 Active seasonality, unspecified trigger Problem Hyperlipidemia E78.5 Active Problem Adult general medical exam Z00.00 A ctive Problem Hypothyroidism (acquired) E03.9 Ac tive Problem Pneumococcal vaccination Z23 Act lizz administered at current visit Problem Hyponatremia E87.1 Active Medications Medication Code Code Instructions Start End Status Dosage System Date Date Accu-Chek Claire [facility] [id number] - In Vitro April 22, Active as directed Plus twice a day 2019 Lisinopril ND 18261793495 40 MG Orally Active 1 ta blet Once a day Meclizine HCl ND 66971474229 25 MG Active TAKE 1 TABLET BY MOUTH 3 TIMES A DAY Levothyroxine ND 88169643972 25 MCG Orally Active 1 tablet on Sodium Once a day in an empty AM stomach in the morning Glucometer [facility] 09321919586 n/s n/s use as Active on e directed EpiPen 2-Gerald [facility] 17740389024 0.3 MG/0.3ML Active no t defined Injection Crestor [facility] 55207853434 40 MG Orally Active 1 table t Once a day Cipro ND 99438982773 500 MG Orally Active 1 tabl et every 12 hrs Mobic [facility] 75593510419 7.5 MG Orally Active 1 tabl et Once a day Meclizine HCl [facility] 35160299866 25 MG Active TAKE 1 TABLET BY MOUTH 3 TIMES A DAY Pantoprazole [facility] 50790043712 40 MG Orally Active 1 tablet Sodium Once a day blood glucose ND 0 twice a day Active as d irected test strip Lancets [facility] 29254658691 - SC twice Active as direct ed daily Accu-Chek NDC 0 - SC twice a April 22, Active as direc howard Softclix Lancets 2019 Augmentin ND 49840133630 500-125 MG Active 1 table t Orally every 12 hrs Singulair ND 20589785836 10 MG Orally Active 1 tab let Once a day Levothyroxine ND 38798909657 25 MCG Orally Active 1 tablet on Sodium Once a day in an empty AM stomach in the morning Olopatadine HCl [facility] 38958607941 0.6 % Nasally Active 2 sprays in Twice a day each nostril Results No Known Results Summary Purpose eClinicalWorks Submission
[2020-05-01 23:05] LABS: Urine Color RED
[2020-05-01 23:06] LABS: Urine Appearance TURBID; Urine Blood 3+ (NEG); Urine Glucose NEGATIVE (NEG); Urine Protein 3+ (NEG)
[2020-05-01 23:09] LABS: Urine Bilirubin NEGATIVE (NEG)
--- NOTE | 2020-05-01 23:24 | ER ---
Nurse's Notes [facility] Name: Noah Whyte Age: 79 yrs Sex: Male : 1940 Arrival Date: 05/01/2020 Time: 21:31 Bed 12 Private MD: Kori Mccoy Diagnosis: Acute cystitis with hematuria Presentation: 05/01 22:01 Chief complaint: Patient states: that he has Mitomycin infusing into bladder via a cath fc on a monthly basis, had it done today. States that he started to run fever at 102.1 at 2039, given Tylenol 650 mg at 2056. Pt is having burning and blood clots. Is being seen by [facility] in [place]. Coronavirus screen: Patient reports a measured and/or subjective temperature greater than 100.4F. Ebola Screen: Patient negative for fever greater than or equal to 101.5 degrees Fahrenheit, and additional compatible Ebola Virus Disease symptoms Patient denies exposure to infectious person. Patient denies travel to an Ebola-affected area in the 21 days before illness onset. Initial Sepsis Screen: Does the patient meet any 2 criteria? No. Patient's initial sepsis screen is negative. Does the patient have a suspected source of infection? No. Patient's initial sepsis screen is negative. Risk Assessment: Do you want to hurt yourself or someone else? Patient reports no desire to harm self or others. Onset of symptoms was May 01, 2020 at 20:00. Care prior to arrival: Medication(s) given: Tylenol, 650 mg, at 2056. Transition of care: patient was not received from another setting of care. 22:01 Method Of Arrival: Ambulatory fc 22:01 Acuity: JAIMIE 3 fc Triage Assessment: 22:14 General: Appears comfortable, slender, well groomed, Behavior is calm, cooperative, fc appropriate for age. Pain: Denies pain. EENT: No deficits noted. Neuro: Level of Consciousness is awake, alert, obeys commands, Oriented to person, place, time, situation, Appropriate for age. Cardiovascular: No deficits noted. 22:14 Cardiovascular: Denies chest pain. Respiratory: Denies cough, shortness of breath. GI: fc No deficits noted. : Reports burning with urination, urinary frequency. Derm: Skin is pink, warm \T\ dry. Musculoskeletal: No deficits noted. Historical: - Allergies: 22:12 Levofloxacin; 22:12 clarithromycin; fc - Home Meds: 22:12 lisinopril 40 mg Oral tab 1 tab once daily [Active]; rosuvastatin 40 mg Oral tab 1 tab fc once daily [Active]; pantoprazole 40 mg Oral TbEC 1 tab once daily [Active]; levothyroxine 25 mcg tab 1 tab once daily [Active]; montelukast 10 mg Oral tab 1 tab once daily [Active]; meclizine 25 mg Oral tab 1 tab tid prn [Active]; patadine Nasal spray twice a day [Active]; - PMHx: 22:12 High Cholesterol; Hypertension; Bladder Tumor - Cancer; Hypothyroidism; Vertigo; GERD; fc - PSHx: 22:12 Removed bladder tumor; Eye surg; Hernia repair; urothelial carcinoma grade 2; fc - Immunization history:: Last tetanus immunization: < 10 years ago Pneumococcal vaccine is up to date, Flu vaccine is up to date. - Social history:: Smoking status: Patient denies any tobacco usage or history of. Screenin:12 Abuse screen: Denies threats or abuse. Nutritional screening: No deficits noted. fc Tuberculosis screening: No symptoms or risk factors identified. Fall Risk None identified. Assessment: 22:15 Reassessment: see triage assessment. 22:30 Reassessment: No changes from previously documented assessment. Pt seen and examined by Obie ARREGUIN. 23:20 Reassessment: No changes from previously documented assessment. Pending lab results. 23:27 Reassessment: Obie ARREGUIN in to speak with pt re: test results and d/c instructions. Vital Signs: 22:01 BP 139 / 92; Pulse 77; Resp 18; Temp 98.8(TE); Pulse Ox 98% on R/A; Weight 75.75 kg fc (R); Height 5 ft. 8 in. (172.72 cm) (R); Pain 0/10; 23:53 BP 158 / 82; Pulse 73; Resp 18 S; Temp 98.0(O); Pulse Ox 99% on R/A; Pain 0/10; jd3 22:01 Body Mass Index 25.39 (75.75 kg, 172.72 cm) ED Course: 21:31 Patient arrived in ED. es 21:31 Kori Mccoy MD is Private Physician. es 22:07 Triage completed. 22:12 Arm band placed on Patient placed in an exam room, on a stretcher. 22:12 Patient has correct armband on for positive identification. Call light in reach. 22:12 No provider procedures requiring assistance completed. 22:19 [facility] jr8 22:19 Tan Rossi MD is Attending Physician. [facility] 23:45 Patient did not have IV access during this emergency room visit. Administered Medications: 23:38 Drug: Augmentin 875 mg Route: PO; 23:50 Follow up: Response: No adverse reaction fc Outcome: 23:24 Discharge ordered by MD. [facility] 23:45 Discharged to home ambulatory, with family. 23:45 Condition: good 23:45 Discharge instructions given to patient, family, Instructed on discharge instructions, follow up and referral plans. medication usage, Demonstrated understanding of instructions, follow-up care, medications, Prescriptions given X 1. 23:55 Patient left the ED. jd3 Signatures: Mckenna Hooks Felicia, RN RN Obie Cruz PA PA [facility] Moris Mathews RN RN jd3 Corrections: (The following items were deleted from the chart) 22:15 22:14 Neuro: No deficits noted. [facility]
--- NOTE | 2020-05-01 23:24 | EDPHYS ---
[facility] Name: oNah Whyte Age: 79 yrs Sex: Male : 1940 Arrival Date: 05/01/2020 Time: 21:31 Bed 12 Private MD: Kori Mccoy ED Physician Tan oRssi HPI: 05/01 23:01 This 79 yrs old Male presents to ER via Ambulatory with complaints of check jr8 for bladder infection. 23:01 Onset: The symptoms/episode began/occurred acutely, today. Associated signs and jr8 symptoms: Pertinent positives: fever. Modifying factors: The patient symptoms are alleviated by nothing, the patient symptoms are aggravated by nothing. The patient has not experienced similar symptoms in the past. The patient has not recently seen a physician. Patient has bladder cancer. Stated that he is having intravesicular chemo infusions. Last one today. Stated that normally he has some blood and pain with urination afterwards. Today was worse but also started to run fever. Denies any other symptoms . Historical: - Allergies: 22:12 Levofloxacin; fc 22:12 clarithromycin; fc - Home Meds: 22:12 lisinopril 40 mg Oral tab 1 tab once daily [Active]; rosuvastatin 40 mg Oral tab 1 tab fc once daily [Active]; pantoprazole 40 mg Oral TbEC 1 tab once daily [Active]; levothyroxine 25 mcg tab 1 tab once daily [Active]; montelukast 10 mg Oral tab 1 tab once daily [Active]; meclizine 25 mg Oral tab 1 tab tid prn [Active]; patadine Nasal spray twice a day [Active]; - PMHx: 22:12 High Cholesterol; Hypertension; Bladder Tumor - Cancer; Hypothyroidism; Vertigo; GERD; fc - PSHx: 22:12 Removed bladder tumor; Eye surg; Hernia repair; urothelial carcinoma grade 2; fc - Immunization history:: Last tetanus immunization: < 10 years ago Pneumococcal vaccine is up to date, Flu vaccine is up to date. - Social history:: Smoking status: Patient denies any tobacco usage or history of. ROS: 23:01 Eyes: Negative for injury, pain, redness, and discharge, ENT: Negative for injury, jr8 pain, and discharge, Neck: Negative for injury, pain, and swelling, Cardiovascular: Negative for chest pain, palpitations, and edema, Respiratory: Negative for shortness of breath, cough, wheezing, and pleuritic chest pain, Abdomen/GI: Negative for abdominal pain, nausea, vomiting, diarrhea, and constipation, Back: Negative for injury and pain, MS/Extremity: Negative for injury and deformity, Skin: Negative for injury, rash, and discoloration, Neuro: Negative for headache, weakness, numbness, tingling, and seizure. 23:01 Constitutional: Positive for fever. 23:01 : Positive for urinary symptoms. Exam: 23:01 Eyes: Pupils equal round and reactive to light, extra-ocular motions intact. Lids and jr8 lashes normal. Conjunctiva and sclera are non-icteric and not injected. Cornea within normal limits. Periorbital areas with no swelling, redness, or edema. ENT: Nares patent. No nasal discharge, no septal abnormalities noted. Tympanic membranes are normal and external auditory canals are clear. Oropharynx with no redness, swelling, or masses, exudates, or evidence of obstruction, uvula midline. Mucous membranes moist. Neck: Trachea midline, no thyromegaly or masses palpated, and no cervical lymphadenopathy. Supple, full range of motion without nuchal rigidity, or vertebral point tenderness. No Meningismus. Cardiovascular: Regular rate and rhythm with a normal S1 and S2. No gallops, murmurs, or rubs. Normal PMI, no JVD. No pulse deficits. Respiratory: Lungs have equal breath sounds bilaterally, clear to auscultation and percussion. No rales, rhonchi or wheezes noted. No increased work of breathing, no retractions or nasal flaring. Abdomen/GI: Soft, non-tender, with normal bowel sounds. No distension or tympany. No guarding or rebound. No evidence of tenderness throughout. Back: No spinal tenderness. No costovertebral tenderness. Full range of motion. Skin: Warm, dry with normal turgor. Normal color with no rashes, no lesions, and no evidence of cellulitis. MS/ Extremity: Pulses equal, no cyanosis. Neurovascular intact. Full, normal range of motion. Neuro: Awake and alert, GCS 15, oriented to person, place, time, and situation. Cranial nerves II-XII grossly intact. Motor strength 5/5 in all extremities. Sensory grossly intact. Cerebellar exam normal. Normal gait. Vital Signs: 22:01 BP 139 / 92; Pulse 77; Resp 18; Temp 98.8(TE); Pulse Ox 98% on R/A; Weight 75.75 kg fc (R); Height 5 ft. 8 in. (172.72 cm) (R); Pain 0/10; 23:53 BP 158 / 82; Pulse 73; Resp 18 S; Temp 98.0(O); Pulse Ox 99% on R/A; Pain 0/10; jd3 22:01 Body Mass Index 25.39 (75.75 kg, 172.72 cm) MDM: 22:19 Patient medically screened. jr8 23:23 Data reviewed: vital signs, nurses notes, lab test result(s), and as a result, I will jr8 discharge patient. Data interpreted: Pulse oximetry: on room air is 98 %. Interpretation: normal. Counseling: I had a detailed discussion with the patient and/or guardian regarding: the historical points, exam findings, and any diagnostic results supporting the discharge/admit diagnosis, lab results, the need for outpatient follow up, a family practitioner, to return to the emergency department if symptoms worsen or persist or if there are any questions or concerns that arise at home. 05/01 22:59 Order name: Urinalysis W/Microscopic EDMS 05/01 22:35 Order name: Urine Dipstick-Ancillary (obtain specimen); Complete Time: 22:56 [facility] Administered Medications: 23:38 Drug: Augmentin 875 mg Route: PO; 23:50 Follow up: Response: No adverse reaction Disposition: 05/02 05:40 Co-signature as Attending Physician, Tan Rossi MD I agree with the assessment and 4 plan of care. Disposition: 05/01/20 23:24 Discharged to Home. Impression: Acute cystitis with hematuria. - Condition is Stable. - Discharge Instructions: Urinary Tract Infection, Adult. - Prescriptions for Augmentin 875- 125 mg Oral Tablet - take 1 tablet by ORAL route every 12 hours for 10 days; 20 tablet. - Medication Reconciliation Form, Thank You Letter, Antibiotic Education, Prescription Opioid Use form. - Follow up: Private Physician; When: 2 - 3 days; Reason: Recheck today's complaints, Continuance of care, Re-evaluation by your physician. - Problem is new. - Symptoms are unchanged. Signatures: Dispatcher [employer] [facility] Marichuy Amaya RN RN Obie Torres PA PA jr8 Moris Mathews RN RN jd3 Tan Rossi MD MD tw4 Corrections: (The following items were deleted from the chart) 05/01 22:58 22:37 UA MICROSCOPIC+U.LAB.BRZ ordered. [facility] 23:55 23:24 05/01/2020 23:24 Discharged to Home. Impression: Acute cystitis with hematuria. jd3 Condition is Stable. Forms are Medication Reconciliation Form, Thank You Letter, Antibiotic Education, Prescription Opioid Use. Follow up: Private Physician; When: 2 - 3 days; Reason: Recheck today's complaints, Continuance of care, Re-evaluation by your physician. Problem is new. Symptoms are unchanged. jr8
[2020-05-01] MEDS ORDERED: AMOX/K CLAV 875 MG TAB ONE (23:46)
[2020-05-02 00:01] LABS: Urine Bacteria <20 /HPF (NONE SEEN); Urine Culture Reflex Order REFLEXED; Urine RBC TNTC /HPF (NONE SEEN)
[2020-05-02 00:19] VITALS: BP 158/82; TEMP 98; O2SAT 99
== END 2020-05-01 23:55 | disposition home or self-care (01) ==
LOC: ER 21:26
DX: N30.01 Acute cystitis with hematuria (principal); I10 Essential (primary) hypertension; E78.00 Pure hypercholesterolemia, unspecified; E03.9 Hypothyroidism, unspecified; Z85.51 Personal history of malignant neoplasm of bladder; Z88.1 Allergy status to other antibiotic agents
CPT/HCPCS: 81001; 87086; 87088; 99283

== ENCOUNTER 2020-12-24 18:36 | Emergency (ER) | payer OTHER ==
[2020-12-24 19:00] LABS: Urine Blood 3+ (NEG); Urine Glucose NEGATIVE (NEG); Urine Protein 3+ (NEG)
[2020-12-24 19:30] LABS: Urine Bacteria <20 /HPF (NONE SEEN); Urine RBC >50 /HPF (NONE SEEN)
--- NOTE | 2020-12-24 20:08 | EDPHYS ---
Physician Documentation [facility] Name: Noah Whyte Age: 80 yrs Sex: Male : 1940 Arrival Date: 12/24/2020 Time: 18:37 Bed 6 Private MD: Kori Mccoy ED Physician Anabela Mayers HPI: 12/24 20:05 This 80 yrs old Male presents to ER via Ambulatory with complaints of Fever, ma2 Possible UTI. 20:05 The patient reports fever, not measured (subjective). Onset: The symptoms/episode ma2 began/occurred gradually, 1 day(s) ago. Associated signs and symptoms: Pertinent negatives: abdominal pain, arthralgias, chest pain, nausea, night sweats, sinus drainage. Severity of symptoms: At their worst the symptoms were very mild in the emergency department the symptoms have resolved. The patient has experienced similar episodes in the past. has bladder ca, sp cystoscope today, here with dysuria.. and subjective fever he does not take any systemic chemotherapy.. . Historical: - Allergies: 18:38 Clarithromycin; sv 18:38 Levofloxacin; sv - PMHx: 18:38 Bladder Tumor - Cancer; GERD; High Cholesterol; Hypertension; Hypothyroidism; Vertigo; sv - PSHx: 18:38 Hernia repair; Removed bladder tumor; Eye surg; urothelial carcinoma grade 2; sv - Immunization history:: Adult Immunizations up to date. - Social history:: Smoking status: . - Family history:: not pertinent. ROS: 20:05 Constitutional: Negative for fever, chills, and weight loss. ma2 20:05 All other systems are negative. Exam: 20:05 Constitutional: This is a well developed, well nourished patient who is awake, alert, ma2 and in no acute distress. Chest/axilla: Normal chest wall appearance and motion. Nontender with no deformity. No lesions are appreciated. Cardiovascular: Regular rate and rhythm with a normal S1 and S2. No gallops, murmurs, or rubs. Normal PMI, no JVD. No pulse deficits. Respiratory: Lungs have equal breath sounds bilaterally, clear to auscultation and percussion. No rales, rhonchi or wheezes noted. No increased work of breathing, no retractions or nasal flaring. Abdomen/GI: Soft, non-tender, with normal bowel sounds. No distension or tympany. No guarding or rebound. No evidence of tenderness throughout. Back: No spinal tenderness. No costovertebral tenderness. Full range of motion. Skin: Warm, dry with normal turgor. Normal color with no rashes, no lesions, and no evidence of cellulitis. MS/ Extremity: Pulses equal, no cyanosis. Neurovascular intact. Full, normal range of motion. Neuro: Awake and alert, GCS 15, oriented to person, place, time, and situation. Cranial nerves II-XII grossly intact. Motor strength 5/5 in all extremities. Sensory grossly intact. Cerebellar exam normal. Normal gait. Vital Signs: 18:39 BP 125 / 73; Pulse 89; Resp 16; Temp 98.2(O); Pulse Ox 99% on R/A; Weight 74.84 kg; sv Height 5 ft. 8 in. (172.72 cm); Pain 0/10; 18:39 Body Mass Index 25.09 (74.84 kg, 172.72 cm) sv MDM: 19:21 Patient medically screened. ma2 20:07 Differential diagnosis: viral Infection, URI, UTI. Data reviewed: vital signs, nurses ma2 notes. Counseling: I had a detailed discussion with the patient and/or guardian regarding: the historical points, exam findings, and any diagnostic results supporting the discharge/admit diagnosis, the presence of at least one elevated blood pressure reading (>120/80) during this emergency department visit, the need for outpatient follow up. Response to treatment: the patient's symptoms have markedly improved after treatment. 12/24 18:59 Order name: Urine Dipstick--Ancillary (enter results) bd 12/24 18:59 Order name: Urine Microscopic Only bd 12/24 18:59 Order name: Urine Dipstick-Ancillary; Complete Time: 19:40 EDMS 12/24 18:59 Order name: Urine Microscopic Only; Complete Time: 19:40 EDMS 12/24 19:30 Order name: Urine Culture EDMS Administered Medications: 20:09 Drug: Bactrim (160 mg-800 mg (DS) 1 tablet Route: PO; ea 20:23 Follow up: Response: No adverse reaction ea Disposition: 12/24/20 20:07 Discharged to Home. Impression: Cystitis, unspecified without hematuria. - Condition is Stable. - Discharge Instructions: Urinary Tract Infection, Adult. - Prescriptions for Bactrim DS 800- 160 mg Oral Tablet - take 1 tablet by ORAL route every 12 hours for 5 days; 10 tablet. - Medication Reconciliation Form, Thank You Letter, Antibiotic Education, Prescription Opioid Use form. - Follow up: Private Physician; When: Tomorrow; Reason: Continuance of care. Signatures: Dispatcher [employer] Allison Andersen RN RN sv Antunez, Elena, RN RN ea Alzahri, Mohammad, MD MD ma2 Corrections: (The following items were deleted from the chart) 20:23 20:07 12/24/2020 20:07 Discharged to Home. Impression: Cystitis, unspecified without ea hematuria. Condition is Stable. Forms are Medication Reconciliation Form, Thank You Letter, Antibiotic Education, Prescription Opioid Use. Follow up: Private Physician; When: Tomorrow; Reason: Continuance of care. ma2
--- NOTE | 2020-12-24 20:08 | ER ---
Nurse's Notes [facility] Name: Noah Whyte Age: 80 yrs Sex: Male : 1940 Arrival Date: 12/24/2020 Time: 18:37 Bed 6 Private MD: Kori Mccoy Diagnosis: Cystitis, unspecified without hematuria Presentation: 12/24 18:39 Chief complaint: Patient states: fever Tmax 99.9, had a cystoscopy done today and sv usually after he has this done he will get a UTI. Pt has been having treatments done in [place] for bladder cancer. Coronavirus screen: Client denies travel out of the [place] in the last 14 days. At this time, the client does not indicate any symptoms associated with coronavirus-19. Ebola Screen: No symptoms or risks identified at this time. Initial Sepsis Screen: Does the patient meet any 2 criteria? No. Patient's initial sepsis screen is negative. Does the patient have a suspected source of infection? No. Patient's initial sepsis screen is negative. Risk Assessment: Do you want to hurt yourself or someone else? Patient reports no desire to harm self or others. Onset of symptoms was December 24, 2020. 18:39 Method Of Arrival: Ambulatory sv 18:39 Acuity: JAIMIE 3 sv Triage Assessment: 18:39 General: Appears in no apparent distress. comfortable, Behavior is calm, cooperative, sv appropriate for age. Pain: Denies pain. Neuro: Level of Consciousness is awake, alert, obeys commands, Oriented to person, place, time, situation, Gait is steady. Respiratory: Respiratory effort is even, unlabored. Historical: - Allergies: 18:38 Clarithromycin; sv 18:38 Levofloxacin; sv - PMHx: 18:38 Bladder Tumor - Cancer; GERD; High Cholesterol; Hypertension; Hypothyroidism; Vertigo; sv - PSHx: 18:38 Hernia repair; Removed bladder tumor; Eye surg; urothelial carcinoma grade 2; sv - Immunization history:: Adult Immunizations up to date. - Social history:: Smoking status: . - Family history:: not pertinent. Screenin:00 Abuse screen: Denies threats or abuse. Nutritional screening: No deficits noted. ea Tuberculosis screening: No symptoms or risk factors identified. Fall Risk None identified. Assessment: 20:00 General: Appears in no apparent distress. Behavior is calm, cooperative, appropriate ea for age. 20:00 Pain: Denies pain. Neuro: Level of Consciousness is awake, alert, obeys commands, ea Oriented to person, place, time. Cardiovascular: Patient's skin is warm and dry. Respiratory: Airway is patent Respiratory effort is even, unlabored, Respiratory pattern is regular, symmetrical. Derm: Skin is pink, warm \T\ dry. Vital Signs: 18:39 BP 125 / 73; Pulse 89; Resp 16; Temp 98.2(O); Pulse Ox 99% on R/A; Weight 74.84 kg; sv Height 5 ft. 8 in. (172.72 cm); Pain 0/10; 18:39 Body Mass Index 25.09 (74.84 kg, 172.72 cm) sv ED Course: 18:37 Patient arrived in ED. ag5 18:38 Kori Mccoy MD is Private Physician. ag5 18:38 Arm band placed on. sv 18:43 Triage completed. 19:21 Anabela Mayers MD is Attending Physician. maRoderick 19:40 Sarah Brewster, KORI is Primary Nurse. ea 19:40 Primary Nurse role handed off by Sarah Brewster RN 19:40 Talat Cai, RN is Primary Nurse. sg 20:22 Patient has correct armband on for positive identification. Placed in gown. Bed in low ea position. 20:22 No provider procedures requiring assistance completed. Patient did not have IV access ea during this emergency room visit. Administered Medications: 20:09 Drug: Bactrim (160 mg-800 mg (DS) 1 tablet Route: PO; ea 20:23 Follow up: Response: No adverse reaction ea Outcome: 20:07 Discharge ordered by . ma2 20:22 Discharged to home ambulatory. ea 20:22 Condition: stable 20:22 Discharge instructions given to patient, Instructed on discharge instructions, follow up and referral plans. medication usage, Demonstrated understanding of instructions, follow-up care, medications. 20:23 Patient left the ED. ea Signatures: Allison Todd RN RN Talat Cai RN RN Sarah Brewster RN RN ea Alzahri, Mohammad, MD MD ma2 Gaskin, Ajare ag5 Corrections: (The following items were deleted from the chart) 18:43 18:39 Pulse 89bpm; Resp 16bpm; Pulse Ox 99% RA; Temp 98.2F Oral; 74.84 kg; Height 5 ft. sv 8 in.; BMI: 25.0; sv
[2020-12-24] MEDS ORDERED: SMZ./TMP. 800/160 MG TABLET ONE (20:16)
--- OUTSIDE RECORDS SUMMARY | 2020-12-24 20:25 | XMS REPORT | Continuity of Care Document ---
:1940 Author Organization [facility] t Address [address] [place] [address] Care Team Providers Name Role Phone Jeannette Mccoy DO Primary Care Physician Rey WORLEY Attending Clinician REY Attending Clinician Unavailable REY Admitting Clinician Unavailable Problems Condition Condition Condition Status Onset Resolution Last Treating Co mments Source Name Details Category Date Date Treatment Clinician Date 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 2-17 [facility] 00 [facility] Allergies, Adverse Reactions, Alerts Allergy Allergy Status Severity Reaction(s) Onset Inactive Treating Comm ents Source Name Type Date Date Clinician Levoflox Drug Active 2018-[address] [facility] acin Intolera 2-11 [facility]ce 00:[facility]: Medical 00 [facility] Clarithr Adverse Active diarrhea, [facility] omycin Reaction bad taste, [facility] - dizziness [facility] Levaquin Adverse Active severe leg [facility] Reaction cramps [facility] Social History Social Habit Start Date Stop Date Quantity Comments Source Sex Assigned At [facility] Tobacco use and 2019-10-31 2019-10-31 Never used [facility] St Grace kes - exposure 00:00:00 00:00:00 Medical [facility] Alcohol intake 2019-10-31 2019-10-31 Current drinker [facility] Amanda monroe [facility]00 of [facility] (finding) Smoking Status Start Date Stop Date Source Never sm[facility] Medications Ordered Filled Start Stop Current Ordering Indication Dosage Frequency Signature Comments Components Source Medication Medication Date Date Medication? Clinician (SIG) Name Name Accu-Chek Accu-Chek Yes Na Mccoy as [facility] Plus [facility] Plus 6-09 directed [facility] pantoprazol 2018-11 Yes 40mg QD Take [address] [facility] e 2-17 by mouth [facility] - (PROTONIX) 18:08: daily. Medic al 40 MG 13 [facility] tablet levothyroxi 2018-11 Yes QD Take by [facility] ne 25 mcg 2-17 mouth [facility] - Cap 18:08: daily . Medical 13 [facility] montelukast 2018-11 Yes 10mg QD Take [address] [facility] (SINGULAIR) 2-17 by mouth [facility] - 10 mg 18:08: nightly. Medical tablet 13 [facility] meclizine 2018-11 Yes 25mg QD Take [address] (ANTIVERT) 2-17 by mouth [facility] - 25 MG 18:08: daily. Medical tablet 13 [facility] Missing or 2018-[address] [facility] Non-Formula 2-17 100mg QID, Grace kes - ry 18:08: Zinc 50mg Medical Medication 13 daily, Center Coenzyme 10 BID, Vit D2 1000u daily, Align probiotic, Chromium 200mg daily, [facility]red[facility] 2caps daily. lisinopril 2018-11 Yes 40mg QD Take [address] (PRINIVIL,Z 2-17 by mouth [facility] - ESTRIL) 40 18:08: daily. Medic al MG tablet 13 [facility] rosuvastati 2018-11 Yes 40mg QD Take [address] [facility] n (CRESTOR) 2-17 by mouth [facility] - 40 MG 18:08: daily. Medical tablet 13 [facility] Glucometer Glucometer Yes Na Mccoy one [facility] Levothyroxi Levothyroxi Yes Na Mccoy [address] [facility] ne Sodium ne Sodium on an [facility] - empty Memoria stomach in l the [facility] Lancets Lancets Yes Na Mccoy as [facility] directed [facility] Accu-Chek Accu-Chek Yes Na Mccoy as [facility] Softclix Softclix directed Sara es - Lancets Lancets [facility] Meclizine Meclizine Yes Na Mccoy TAKE [address] [facility] HCl HCl TABLET BY [facility] - MOUTH Memoria THREE l TIMES Outpati DAILY ent Clinics Mobic Mobic Yes Na Mccoy [address] [facility] Euthyrox Euthyrox Yes Na Mccoy TAKE [address] TABLET BY [facility] - MOUTH ONCE Memoria DAILY IN l THE Outpati MORNING ON ent AN EMPTY Clinics STOMACH EpiPen EpiPen Yes Na Mccoy not [facility] 2-Gerald 2-Gerald defined [facility] Olopatadine Olopatadine Yes Na Mccoy [address] [facility] HCl HCl in each [facility] - nostril [facility] Meclizine Meclizine Yes Na Mccoy TAKE [address] [facility] HCl HCl TABLET BY [facility] - MOUTH 3 Memoria TIMES A l DAY [facility] Levothyroxi Levothyroxi Yes Na Mccoy [address] [facility] ne Sodium ne Sodium on an Luke [facility] - empty Memoria stomach in l the Outpati morning ent Clinics Cipro Cipro Yes Na Mccoy [address] [facility] Augmentin Augmentin Yes Na Mccoy [address] [facility] Crestor Crestor Yes Na Mccoy [address] [facility] Pantoprazol Pantoprazol Yes Na Mccoy [address] [facility] e Sodium e Sodium [facility] blood blood Yes Na Mccoy as [facility] glucose glucose directed [facility] - test strip test strip Mem [facility] Singulair Singulair Yes Na Mccoy [address] [facility] Lisinopril Lisinopril Yes Na Mccoy [address] [facility] Immunizations Ordered Filled Immunization Date Status Comments Sourc e Immunization Name Name Mary Hernandez 2019-07-[address] [facility] Procedures This patient has no known procedures. Plan of Care Planned Activity Planned Date Details Comments Source Future Scheduled 2020-11-[address] [facility] - Test 00:00:00 (12+) [code = Medical Center DEPRESSION SCREENING (12+)] Future Scheduled 2020-07-15 INFLUENZA VACCINE (#1) [facility]00 [code = INFLUENZA Medical Ce nter VACCINE (#1)] Future Scheduled 2019-11-[address] [facility] - Test 00:00:00 WELLNESS (YEAR 2 or Medical Center FIRST YEAR if no IPPE) [code = MEDICARE ANNUAL WELLNESS (YEAR 2 or FIRST YEAR if no IPPE)] Future Scheduled 2005 PNEUMOCOCCAL 65+ YRS [facility] - Test 00:00:00 (1 of 1 - Medical Center [id number] PCV13) [code = PNEUMOCOCCAL 65+ YRS (1 of 1 - [id number] PCV13)] Encounters Start End Encounter Admission Attending Care Care Encounter Source Date/Time Date/Time Type Type Clinicians Facility Department ID 2020-10-24 2020-10-24 Outpatient [facility] [id number] [facility] 2020-10-07 2020-10-07 Outpatient [facility] [id number] [facility] 2020-10-07 2020-10-07 Outpatient [facility] [id number] [facility] 2020-10-07 2020-10-07 Outpatient [facility] [id number] [facility] 2020-08-27 2020-08-27 Outpatient [facility] [id number] [facility] 2020-07-23 2020-07-23 [facility] [id number] [address] 08:40:00 08:40:00 [employer] [place] [facility] Medicine Outpati ent Clinics 2020-07-22 2020-07-22 [facility] [id number] 17:01:00 17:01:00 t [employer] [facility] l Medicine Outpati ent Clinics 2020-07-07 2020-07-07 [facility] [id number] 16:22:00 16:22:00 [place] [employer] [facility] - [facility] Medicine Outpati ent Clinics 2020-07-04 2020-07-04 [facility] [id number] 11:20:00 11:20:00 [place] [employer] s - [facility] Medicine Outpati ent Clinics 2020-07-04 2020-07-04 [facility] [id number] 08:10:00 08:10:00 [place] [employer] s - Drive [facility] Medicine Outpati ent Clinics 2020-04-22 2020-04-22 [facility] [id number] [address] 13:20:00 13:20:00 [place] [employer] s - Drive [facility] Medicine Outpati ent Clinics 2019-11-21 2019-11-21 Office ESTEBAN Le [id number] 22 14:51:13 16:43:49 Visit [facility] AMBULATOR [id number] 2019-10-23 2019-10-23 [facility] [id number] 13:20:00 13:20:00 [place] [employer] s - Drive [facility] Medicine Outpati ent Clinics 2019-08-02 2019-08-02 [facility] [id number] 10:02:00 10:02:00 t [place] [employer] s - Drive [facility] Medicine Outpati ent Clinics 2019-07-25 2019-07-25 [facility] [id number] 09:40:00 09:40:00 t [place] [employer] s - Drive [facility] Medicine Outpati ent Clinics 2019-05-22 2019-05-22 [facility] [id number] 09:20:00 09:20:00 t [place] [employer] s - Drive [facility] Medicine Outpati ent Clinics 2019-04-24 2019-04-24 [facility] [id number] 09:40:00 09:40:[address] [place] [address] [facility] - Drive [facility] Outpati ent Clinics 2019-02-01 2019-02-01 [facility] [id number] 09:30:00 09:30:00 [place] [address] [facility] - Drive [facility] Outpati ent Clinics 2019-01-16 2019-01-16 [facility] [id number] 09[facility]25:00 09:25:00 [place] [address] [facility] - Drive [facility] Medicine Outpati ent Clinics 2018-12-18 2018-12-18 [facility] [id number] 13:34:00 13:34:00 [place] [address] [facility] - Drive [facility] Outpati ent Clinics 2018-12-18 2018-12-18 [facility] [id number] 09:00:00 09:00:00 [place] [address] [facility] - Drive [facility] Outpati ent Clinics 2018-12-15 2018-12-15 [facility] [id number] 10:47:00 10:47:00 [place] [address] [facility] - Drive [facility] Outpati ent Clinics 2018-10-24 2018-10-24 [facility] [id number] 08:30:00 08:30:00 [place] [address] [facility] - Drive [facility] Results Test Description Test Time Test Comments Results Result Sour e Comments TISSUE EXAM 2019-11-02 Surgical Pathology 17:32:00 Report Case: [id number] Authorizing Provider: Feliz Le MD Collected: 10/30/2019 1037 Ordering Location: [facility] PERIOPER[facility]IVE Received: 10/31/2019 0846 SERVICES Pathologist: [...] BY TUMOR Signing Pathologist Direct Phone Line: [phone] ally signed by Yan Hays MD on 11/02/2019 at 5:32 PMThe invasive component represents no more than 5% of the total tumor mass. 25212 X 2Preoperative and postoperative diagnoses: bladder tumorA. [...] The specimen entirely submitted in cassettes B1-AB. JG/ewPerformed. POCT-GLUCOSE METER 2019-10-30 06:24:00 Test Item Value Reference Range Interpretation [facility]me [facility] POC-GLUCOSE METER (CHANDLER) 76 mg/dL 70-110 : TESTED AT [facility] [address] (test code = 1538) [place], [id number]: Counseling Department Chair/Techni jordana ID = [id number] for SEBASTIAN LINO
--- OUTSIDE RECORDS SUMMARY | 2020-12-24 20:25 | XMS REPORT | Clinical Summary ---
:[address] [facility] Address [address] [place] [address] Care Team Providers Name Role Phone Jeannette Mccoy DO Primary Care Provider Allergies Active Allergy Reactions Severity Noted Date Comments Levofloxacin 10/24/2019 Medications Medication Sig Dispensed Refills Start Date End Date Status lisinopril Take 40 mg by 0 Activ e (PRINIVIL,ZESTRIL) 40 mouth daily. MG tablet rosuvastatin (CRESTOR) Take 40 mg by 0 Active 40 MG tablet mouth daily. pantoprazole Take 40 mg by 0 Act [...] probiotic, Chromium 200mg daily, Areds 2caps daily. Active Problems Problem Noted Date Bladder tumor 10/30/2019 Social History Tobacco Use Types Packs/Day Years Used Date Never Smoker Smokeless Tobacco: Never Used Alcohol Use Drinks/Week oz/Week Comments Yes 7 Glasses of wine 7.0 Sex Assigned at Date Recorded Not on file Last Filed Vital Signs Not on file Plan of Treatment Health Maintenance Due Date Last Done Comments PNEUMOCOCCAL 65+ YRS (1 of 1 - [id number] PCV13) 2005 MEDICARE ANNUAL WELLNESS (YEAR 2 or FIRST YEAR if no 11/15/2019 IPPE) INFLUENZA VACCINE (#1) 2020 09/10/2015 DEPRESSION SCREENING (12+) 11/14/2020 Results Not on fileafter 12/24/2019 Insurance Payer Benefit Plan / Subscriber ID Effective Phone Address T ype Group Dates HUMANA - HUMANA [id number] 2018-Prese Maps Contracted MEDICARE MGD MEDICARE ADV nt CARE
[2020-12-24 20:26] VITALS: BP 125/73; TEMP 98.2; O2SAT 99
== END 2020-12-24 20:23 | disposition home or self-care (01) ==
LOC: ER 18:36
DX: N30.90 Cystitis, unspecified without hematuria (principal); Z85.51 Personal history of malignant neoplasm of bladder; K21.9 Gastro-esophageal reflux disease without esophagitis; E78.00 Pure hypercholesterolemia, unspecified; I10 Essential (primary) hypertension; E03.9 Hypothyroidism, unspecified
CPT/HCPCS: 81003; 81015; 87086; 87088; 99283

== ENCOUNTER 2020-12-31 17:11 | Emergency (ER) | payer OTHER ==
[2020-12-31 21:04] LABS: Absolute Lymphocytes (CBC) 1.4 K/uL (0.7-4.9); Basophils % 1.2 % (0-1.3); Hematocrit 35.3 % (39.6-49.0); Lymphocytes % 25.1 % (15.3-44.8); RBC Red Blood Cell Count 3.96 M/uL (4.33-5.43)
--- NOTE | 2020-12-31 21:23 | RAD REPORT ---
EXAM DESCRIPTION: CT - Head Brain Wo Cont - 12/31/2020 8:21 pm CLINICAL HISTORY: DIZZINESS COMPARISON: HEAD BRAIN W O CONTRAST dated 10/09/2010 TECHNIQUE: Axial 5 mm thick images of the head were obtained without IV contrast. All CT scans are performed using dose optimization technique as appropriate and may include automated exposure control or mA/KV adjustment according to patient size. FINDINGS: No intracranial hemorrhage, mass, edema or shift of mid-line structures. No acute infarcti on changes seen. No cortical edema or sulcal effacement. Mild for age atrophy and mild chronic ischem ic changes are seen similar to comparison. Ventricles remain in proportion to volume loss. Arterial t ree calcifications are present. Mastoid air cells and visualized portions of the paranasal sinuses are clear. No acute bony findings. IMPRESSION: Atrophy and chronic ischemic changes similar to comparison. No acute findings seen.
[2020-12-31 21:29] LABS: Magnesium 2.2 mg/dL (1.8-2.4)
[2020-12-31 22:05] LABS: Thyroid Stimulating Hormone 6.43 uIU/mL (0.360-3.740)
[2020-12-31] MEDS ORDERED: NA CHLORIDE 0.9% 500 ML ONE (22:49)
--- NOTE | 2020-12-31 23:47 | ER ---
Nurse's Notes [facility] Name: Noah Whyte Age: 80 yrs Sex: Male : 1940 Arrival Date: 12/31/2020 Time: 17:13 Bed 30 Private MD: Diagnosis: Dizziness and giddiness;Hypo-osmolality and hyponatremia Presentation: 12/31 17:19 Chief complaint: Patient states: Dizzy at home since 1400 today after taking a nap. ll1 Meclizine didn't help this time. No N/V/D. No known fever. Dr. Mccoy is his doctor. Out of electricity and power since last night. Sodium and chloride (130, 96)were low with his last blood draw 12/19/20. TSH elevated 5.590. 17:23 Coronavirus screen: Client denies travel out of the [place] in the last 14 days. At this ll1 time, the client does not indicate any symptoms associated with coronavirus-19. Ebola Screen: Patient denies travel to an Ebola-affected area in the 21 days before illness onset. Initial Sepsis Screen: Does the patient meet any 2 criteria? No. Patient's initial sepsis screen is negative. Does the patient have a suspected source of infection? No. Patient's initial sepsis screen is negative. Risk Assessment: Do you want to hurt yourself or someone else? Patient reports no desire to harm self or others. Onset of symptoms was December 31, 2020. 17:23 Method Of Arrival: Ambulatory ll1 17:23 Acuity: JAIMIE 3 ll1 Historical: - Allergies: 17:25 Clarithromycin; ll1 17:25 Levofloxacin; ll1 - PMHx: 17:25 Bladder Tumor - Cancer; GERD; High Cholesterol; Hypertension; Hypothyroidism; Vertigo; ll1 - PSHx: 17:25 Hernia repair; Removed bladder tumor; Eye surg; urothelial carcinoma grade 2; ll1 - Immunization history:: Flu vaccine is up to date. - Social history:: Smoking status: Patient denies any tobacco usage or history of. - Family history:: not pertinent. - Hospitalizations: : No recent hospitalization is reported. Screenin:19 Abuse screen: Denies threats or abuse. Nutritional screening: No deficits noted. ea Tuberculosis screening: No symptoms or risk factors identified. Fall Risk IV access (20 points). Assessment: 20:00 Reassessment:. General: Appears in no apparent distress. Behavior is appropriate for ea age. Pain: Denies pain. Neuro: Level of Consciousness is awake, alert, obeys commands, Oriented to person, place, time, Reports dizziness. Respiratory: Airway is patent Respiratory effort is even, unlabored, Respiratory pattern is regular, symmetrical. Derm: Skin is pink, warm \T\ dry. 20:18 Reassessment: Pt taken to CT. ea 21:45 Reassessment: Patient and/or family updated on plan of care and expected duration. Pain ea level reassessed. Patient is alert, oriented x 3, equal unlabored respirations, skin warm/dry/pink. 01/01 00:17 Reassessment: Patient and/or family updated on plan of care and expected duration. Pain ea level reassessed. Patient is alert, oriented x 3, equal unlabored respirations, skin warm/dry/pink. Discharge instruction given to patient verbalized the understanding of instruction. Pt left ED ambulatory tolerating well. Vital Signs: 12/31 17:23 BP 154 / 75; Pulse 68; Resp 16; Temp 98.3; Pulse Ox 98% on R/A; Weight 74.84 kg; Height ll1 5 ft. 8 in. (172.72 cm); Pain 0/10; 21:43 BP 133 / 66; Pulse 56; Resp 18; Pulse Ox 99% on R/A; ea 22:00 BP 134 / 69; Pulse 65; Resp 17; Temp 98.1; Pulse Ox 99% on R/A; ea 01/01 00:15 BP 124 / 72; Pulse 55; Resp 18; Pulse Ox 100% on R/A; ea 12/31 17:23 Body Mass Index 25.09 (74.84 kg, 172.72 cm) ll1 ED Course: 12/31 17:13 Patient arrived in ED. rg4 17:19 Arm band placed on. ll1 17:24 Triage completed. ll1 19:54 Zaire Alvarez MD is Attending Physician. rn 20:07 Sarah Brewster RN is Primary Nurse. ea 20:20 Patient has correct armband on for positive identification. Bed in low position. Call ea light in reach. Side rails up X2. 20:21 CT Head Brain wo Cont In Process Unspecified. EDMS 20:45 Warm blanket given. Verbal reassurance given. engine monitor on. Pulse ox on. NIBP on. jp3 20:45 EKG done, by ED staff, reviewed by Zaire Alvarez MD. Patient maintains SpO2 saturation jp3 greater than 95% on room air. 23:39 Urine collected: clean catch specimen, clear, tawnya colored. jp3 01/01 00:15 No provider procedures requiring assistance completed. IV discontinued, intact, ea bleeding controlled, No redness/swelling at site. Pressure dressing applied. Administered Medications: 12/31 22:42 Drug: NS 0.9% 500 ml Route: IV; Rate: bolus; Site: right forearm; ea 01/01 00:00 Follow up: Response: No adverse reaction; IV Status: Completed infusion; IV Intake: ea 500ml Intake: 00:00 IV: 500ml; Total: 500ml. ea Outcome: 12/31 23:47 Discharge ordered by . rn 01/01 00:15 Discharged to home ambulatory, with family. ea Condition: stable Discharge instructions given to patient, Instructed on discharge instructions, follow up and referral plans. Demonstrated understanding of instructions, follow-up care. 00:17 Patient left the ED. ea Signatures: Dispatcher [employer] Zaire Lehman MD MD rn Garcia, Rubi rg4 Sarah Brewster, RN RN Campos Peralta jp3 Jose Kaufman, RN RN ll1
--- NOTE | 2020-12-31 23:47 | EDPHYS ---
Physician Documentation [facility] Name: Noah Whyte Age: 80 yrs Sex: Male : 1940 Arrival Date: 12/31/2020 Time: 17:13 Bed 30 Private MD: ED Physician Zaire Alvarez HPI: 12/31 20:06 This 80 yrs old Male presents to ER via Ambulatory with complaints of rn Dizziness. 20:06 The patient presents with dizziness, generalized weakness, lightheadedness, feeling off rn balance. Onset: The symptoms/episode began/occurred today. Modifying factors: The symptoms are alleviated by holding head still, the symptoms are aggravated by movement of head, standing up, changing position. Severity of symptoms: At their worst the symptoms were mild in the emergency department the symptoms have improved. The patient has experienced a previous episode. The patient has been recently seen by a physician:. Reports dizziness when standing up today, similar to previous vertigo in past but meclizine did not take it away, did improve it some. No recent illness. Is undergoing medication changes, just held levothyroxine due to high t4 levels. No recent head injury. No chest pain/sob/abd pain/vomiting/diarrhea. Recent cystoscopy last week and seen here shortly after for treatment of UTI. . Historical: - Allergies: 17:25 Clarithromycin; ll1 17:25 Levofloxacin; ll1 - PMHx: 17:25 Bladder Tumor - Cancer; GERD; High Cholesterol; Hypertension; Hypothyroidism; Vertigo; ll1 - PSHx: 17:25 Hernia repair; Removed bladder tumor; Eye surg; urothelial carcinoma grade 2; ll1 - Immunization history:: Flu vaccine is up to date. - Social history:: Smoking status: Patient denies any tobacco usage or history of. - Family history:: not pertinent. - Hospitalizations: : No recent hospitalization is reported. ROS: 20:06 Constitutional: Negative for fever, chills, and weight loss, Eyes: Negative for injury, rn pain, redness, and discharge, Neck: Negative for injury, pain, and swelling, Cardiovascular: Negative for chest pain, palpitations, and edema, Respiratory: Negative for shortness of breath, cough, wheezing, and pleuritic chest pain, Abdomen/GI: Negative for abdominal pain, nausea, vomiting, diarrhea, and constipation, Back: Negative for injury and pain, : Negative for injury, bleeding, discharge, and swelling, MS/Extremity: Negative for injury and deformity, Skin: Negative for injury, rash, and discoloration, Neuro: Negative for headache, focal weakness, numbness, tingling, and seizure. Exam: 20:06 Constitutional: This is a well developed, well nourished patient who is awake, alert, rn and in no acute distress. Head/Face: Normocephalic, atraumatic. Eyes: Pupils equal round and reactive to light, extra-ocular motions intact. Lids and lashes normal. Conjunctiva and sclera are non-icteric and not injected. Cornea within normal limits. Periorbital areas with no swelling, redness, or edema. ENT: MMM Cardiovascular: Regular rate and rhythm. No pulse deficits. Respiratory: No increased work of breathing, no retractions or nasal flaring. Abdomen/GI: soft, non-tender Skin: Warm, dry MS/ Extremity: Pulses equal, no cyanosis. Neurovascular intact. Full, normal range of motion. Equal circumference. Neuro: Awake and alert, GCS 15, oriented to person, place, time, and situation. Cranial nerves II-XII grossly intact. Motor strength 5/5 in all extremities. Sensory grossly intact. Cerebellar exam normal. Normal gait. Vital Signs: 17:23 BP 154 / 75; Pulse 68; Resp 16; Temp 98.3; Pulse Ox 98% on R/A; Weight 74.84 kg; Height ll1 5 ft. 8 in. (172.72 cm); Pain 0/10; 21:43 BP 133 / 66; Pulse 56; Resp 18; Pulse Ox 99% on R/A; ea 22:00 BP 134 / 69; Pulse 65; Resp 17; Temp 98.1; Pulse Ox 99% on R/A; ea 01/01 00:15 BP 124 / 72; Pulse 55; Resp 18; Pulse Ox 100% on R/A; ea 12/31 17:23 Body Mass Index 25.09 (74.84 kg, 172.72 cm) ll1 MDM: 12/31 19:54 Patient medically screened. rn 23:45 Differential diagnosis: generalized weakness, hyperventilation, hypovolemia, idiopathic rn dizziness, vertigo, stress reaction. Data reviewed: vital signs, nurses notes, lab test result(s), EKG, radiologic studies, CT scan, and as a result, I will discharge patient. Counseling: I had a detailed discussion with the patient and/or guardian regarding: the historical points, exam findings, and any diagnostic results supporting the discharge/admit diagnosis, lab results, radiology results, the need for outpatient follow up, to return to the emergency department if symptoms worsen or persist or if there are any questions or concerns that arise at home. Response to treatment: the patient's symptoms have markedly improved after treatment, and as a result, I will discharge patient. Special discussion: I discussed with the patient/guardian in detail that at this point there is no indication for admission to the hospital. It is understood, however, that if the symptoms persist or worsen the patient needs to return immediately for re-evaluation. ED course: Pt feels much better after fluids and eating, denies dizziness, ct head neg, ecg without ischemia, stable vitals, no new findings in blood, only known slight hyponatremia and subclinical hypothyroidism but pcp is altering thyroid meds currently so will not change. Will dc home with return precautions and pcp f/u. . 12/31 19:13 Order name: Urine Culture 12/31 19:13 Order name: Urine Microscopic Only 12/31 20:05 Order name: CBC with Diff 12/31 20:05 Order name: Basic Metabolic Panel; Complete Time: 22:09 12/31 20:05 Order name: Magnesium; Complete Time: 22:09 12/31 20:06 Order name: TSH 12/31 20:05 Order name: CT Head Brain wo Cont; Complete Time: 21:48 12/31 20:06 Order name: T4 Free 12/31 20:06 Order name: CBC with Automated Diff; Complete Time: 21:18 [facility] 12/31 20:06 Order name: Thyroid Stimulating Hormone; Complete Time: 22:09 [facility] 12/31 20:06 Order name: T4 Free; Complete Time: 22:09 [facility] 12/31 23:44 Order name: Urine Dipstick--Ancillary (enter results) [facility] 12/31 23:45 Order name: Urine Dipstick-Ancillary [facility] 12/31 19:13 Order name: Urine Dipstick-Ancillary (obtain specimen); Complete Time: 23:43 12/31 20:05 Order name: IV Start; Complete Time: 20:17 rn 12/31 20:05 Order name: EKG; Complete Time: 20:06 rn 12/31 20:05 Order name: EKG - Nurse/Tech; Complete Time: 20:46 rn Administered Medications: 22:42 Drug: NS 0.9% 500 ml Route: IV; Rate: bolus; Site: right forearm; ea 01/01 00:00 Follow up: Response: No adverse reaction; IV Status: Completed infusion; IV Intake: ea 500ml Disposition: 12/31/20 23:47 Discharged to Home. Impression: Dizziness and giddiness, Hypo-osmolality and hyponatremia. - Condition is Stable. - Discharge Instructions: Dizziness, Hyponatremia. - Medication Reconciliation Form, Thank You Letter, Antibiotic Education, Prescription Opioid Use form. - Follow up: Private Physician; When: As needed; Reason: Recheck today's complaints, Re-evaluation by your physician. - Problem is new. - Symptoms have improved. Signatures: Dispatcher [employer] EDMS Zaire Alvarez MD MD rn Antunez, Elena, RN RN ea Lewis, Lynsay, RN RN ll1 Corrections: (The following items were deleted from the chart) 00:17 12/31 23:47 12/31/2020 23:47 Discharged to Home. Impression: Dizziness and giddiness; ea Hypo-osmolality and hyponatremia. Condition is Stable. Forms are Medication Reconciliation Form, Thank You Letter, Antibiotic Education, Prescription Opioid Use. Follow up: Private Physician; When: As needed; Reason: Recheck today's complaints, Re-evaluation by your physician. Problem is new. Symptoms have improved. rn
[2020-12-31 23:51] LABS: Urine Urothelial Cells <5 /HPF (NONE SEEN)
[2020-12-31 23:52] LABS: Urine Bacteria <20 /HPF (NONE SEEN); Urine RBC NONE SEEN /HPF (NONE SEEN)
[2021-01-01 00:18] LABS: Urine Blood NEGATIVE (NEG); Urine Glucose NEGATIVE (NEG); Urine Protein NEGATIVE (NEG)
[2021-01-01 00:32] VITALS: TEMP 98.1
[2021-01-01 00:34] VITALS: BP 124/72; O2SAT 100
== END 2021-01-01 00:17 | disposition home or self-care (01) ==
LOC: ER 17:11
DX: E87.1 Hypo-osmolality and hyponatremia (principal); R42 Dizziness and giddiness; Z88.3 Allergy status to other anti-infective agents; Z88.8 Allergy status to other drugs, medicaments and biological substances
CPT/HCPCS: 85025; 87086; 80048; 36415; 83735; 84443; 84439; 70450; 96360; 99285; J7040; 81003; 81015; 87088

== ENCOUNTER 2021-05-31 18:36 | Emergency (ER) | payer OTHER ==
--- OUTSIDE RECORDS SUMMARY | 2021-05-31 18:38 | XMS REPORT | Continuity of Care Document ---
:1940 Author Organization [facility] t Address [address] [place] [address] Care Team Providers Name Role Phone Jeannette Mccoy DO Primary Care Physician Rey WORLEY Attending Clinician REY Attending Clinician Unavailable REY Admitting Clinician Unavailable Problems Condition Condition Condition Status Onset Resolution Last Treating Co mments Source Name Details Category Date Date Treatment Clinician Date 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 2-17 [facility] 00 [place] Allergies, Adverse Reactions, Alerts Allergy Allergy Status Severity Reaction(s) Onset Inactive Treating Comm ents Source Name Type Date Date Clinician Levoflox Drug Active 2018-[address] [facility] acin Intolera 2-11 [facility] 00:[facility]: [facility] 00 [place] Clarithr Adverse Active diarrhea, [facility] omycin Reaction bad taste, [facility] - dizziness [facility] Levaquin Adverse Active severe leg [facility] Reaction cramps [facility] Social History Social Habit Start Date Stop Date Quantity Comments Source Sex Assigned At [facility] Tobacco use and 2019-10-31 2019-10-31 Never used [facility] St Garce kes - exposure 00:00:00 00:00:00 [facility] [place] Alcohol intake 2019-10-31 2019-10-31 Current drinker [facility] Amanda monroe [facility] Smoking Status Start Date Stop Date Source Never sm[facility] Medications Ordered Filled Start Stop Current Ordering Indication Dosage Frequency Signature Comments Components Source Medication Medication Date Date Medication? Clinician (SIG) Name Name Accu-Chek Accu-Chek Yes Na Mccoy as [facility] 6[facility]09 directed [facility] pantoprazol 2018-11 Yes 40mg QD Take [address] [facility] e 2-17 by mouth [facility] - (PROTONIX) 18:08: daily. Medic al 40 MG 13 [place] tablet levothyroxi 2018-11 Yes QD Take by [facility] ne 25 mcg 2-17 mouth [facility] - Cap 18:08: daily . Medical 13 [place] montelukast 2018-11 Yes 10mg QD Take [address] [facility] (SINGULAIR) 2-17 by mouth [facility] - 10 mg 18:08: nightly. Medical tablet 13 [place] meclizine 2018-11 Yes 25mg QD Take [address] (ANTIVERT) 2-17 by mouth [facility] - 25 MG 18:08: daily. Medical tablet 13 [place] Missing or 2018-11 Yes Magnesium [facility] I [...] 18:08: daily. Medic al MG tablet 13 [place] rosuvastati 2018-11 Yes 40mg QD Take [address] [facility] n (CRESTOR) 2-17 by mouth [facility] - 40 MG 18:08: daily. Medical tablet 13 [place] Glucometer Glucometer Yes Na Mccoy one [facility] Levothyroxi Levothyroxi Yes Na Mccoy [address] [facility] ne Sodium ne Sodium on an [facility] - empty [facility] stomach [facility] Lancets Lancets Yes Na Mccoy as [facility] directed [facility] Accu-Chek Accu-Chek Yes Na Mccoy as [facility] Softclix Softclix directed Sara es - Lancets Lancets [facility] Meclizine Meclizine Yes Na Mccoy TAKE [address] [facility] HCl HCl TABLET BY [facility] - MOUTH Memoria THREE l TIMES Outpati DAILY ent Clinics Mobic Mobic Yes Na Mccoy [address] [facility] Euthyrox Euthyrox Yes Na Mccoy TAKE [address] TABLET BY [facility] - MOUTH ONCE Memoria DAILY IN l THE Outpati MORNING ON ent AN EMPTY Clinics STOMACH EpiPen EpiPen Yes Na Mccoy not [facility] 2-Gerald 2-[facility] defined [facility] Olopatadine Olopatadine Yes Na Mccoy [address] [facility] HCl HCl in each [facility] - nostril [facility] Meclizine Meclizine Yes Na Mccoy TAKE [address] [facility] HCl HCl TABLET BY [facility] - MOUTH 3 Memoria TIMES A l DAY [facility] Levothyroxi Levothyroxi Yes Na Mccoy [address] [facility] ne Sodium ne Sodium on an [facility] - empty Memoria stomach in l the Outpati morning ent Clinics Cipro Cipro Yes Na Mccoy [address] [facility] Augmentin Augmentin Yes Na Mccoy [address] [facility] Crestor Crestor Yes Na [facility]ccoy [address] [facility] Pantoprazol Pantoprazol Yes Na Mccoy [address] [facility] e Sodium e Sodium [facility] blood blood Yes Na Mccoy as [facility] glucose glucose directed [facility] - test strip test strip [facility] Singulair Singulair Yes Na Mccoy [address] [facility] Lisinopril Lisinopril Yes Na Mccoy [address] [facility] Immunizations Ordered Filled Immunization Date Status Comments Sourc e Immunization Name Name Mary Hernandez 2019-07-[address] [facility]00 [facility] Procedures This patient has no known procedures. [...] 00:00:00 (1 of 1 - Medical Center [id number] PCV13) [code = PNEUMOCOCCAL 65+ YRS (1 of 1 - [id number] PCV13)] Encounters Start End Encounter Admission Attending Care Care Encounter Source Date/Time Date/Time Type Type Clinicians Facility Department ID 2021-04-29 2021-04-29 [id number] 2021-03-10 2021-03-10 [facility] [id number] [facility] 2021-03-05 2021-03-05 [facility] [id number] [facility] 2021-02-17 2021-02-17 [facility] [id number] [facility] 2021-02-16 2021-02-16 [facility] [id number] [facility] 2021-02-12 2021-02-12 [facility] [id number] [facility] 2021-02-11 2021-02-11 [facility] [id number] [facility] 2021-01-21 2021-01-21 [facility] [id number] [facility] 2021-01-02 2021-01-02 [facility] [id number] [facility] 2020-10-24 2020-10-24 [facility] [id number] [facility] 2020-10-07 2020-10-07 [facility] [id number] [facility] 2020-10-07 2020-10-07 [facility] [id number] [facility] 2020-10-07 2020-10-07 [facility] [id number] [facility] 2020-08-27 2020-08-27 Out[facility] [id number] [facility] 2020-07-23 2020-07-23 [facility] [id number] [facility] 08[facility]40[facility]00 08:40:[facility] [place] [employer] [facility] - Drive [facility] l Medicine Outpati ent Clinics 2020-07-22 2020-07-22 [facility] [id number] [facility] 17:01:00 17:01:00 [place] [employer] - [facility] Medicine Outpat[facility] ent Clinics 2020-07-07 2020-07-07 [facility] [id number] [address] 16:22:00 16:22:00 [place] [employer] [facility] - Drive [facility] Medicine Outpati ent Clinics 2020-07-04 2020-07-04 [facility] [id number] 11:20:00 11:20:00 [place] [employer] [facility] - Drive [facility] l Medicine Outpati ent Clinics 2020-07-04 2020-07-04 [facility] [id number] 08[facility]10:00 08:10:00 [place] [employer] [facility] - [employer] [facility] l Medicine Outpati ent Clinics 2020-04-22 2020-04-22 [facility] [id number] [facility] 13:20:00 13:20:00 [place] [email or web address] s - [employer] [facility] Medicine Outpati [facility] Clinics 2019-11-21 2019-11-21 Office DONI Le [id number] 14:51:13 16:43:49 Visit Feliz AMBULATOR [id number] 2019-10-23 2019-10-23 [facility] [id number] 13:20:00 13:20:00 t [facility] s - SimuForm [facility] Outpat[facility] Clinics 2019-08-02 2019-08-02 [facility] [id number] 10:02:00 10:02:00 [place] [email or web address] [facility] - [facility]uForm [facility] Out[facility] Clinics 2019-07-25 2019-07-25 [facility] [id number] 09[facility]40:00 09:40:00 [place] [email or web address] [facility] - [employer] [facility] Medicine Outpat[facility] Clinics 2019-05-22 2019-05-22 [facility] [id number] 09[facility]20:00 09:20:00 [place] [email or web address] [facility] - Drive [facility] Medicine Outpati ent Clinics 2019-04-24 2019-04-24 [facility] [id number] 09:40:00 09:40:00 [place] [email or web address] [facility] - Drive [facility] Medicine Outpati ent Clinics 2019-02-01 2019-02-01 [facility] [id number] 09:30:00 09:30:00 [place] [email or web address] [facility] - [employer] [facility] Medicine Outpati ent Clinics 2019-01-16 2019-01-16 [facility] [id number] 09:25:00 09:25:[address] [place] [address] [facility] - Drive [facility] ent Clinics 2018-12-18 2018-12-18 [facility] [id number] 13:34:00 13:34:[address] [place] [address] [facility] - Drive [facility] ent Clinics 2018-12-18 2018-12-18 [facility] [id number] [facility] 09:00:00 09:00:[facility] [place] [address] ke s - Drive [facility] ent Clinics 2018-12-15 2018-12-15 [facility] [id number] 10:47:00 10:47:00 [place] [address] [place] [facility] ent Clinics 2018-10-24 2018-10-24 [facility] [id number] 08:30:00 08:30:00 t [facility] Results Test Description Test Time Test Comments Results Result Sour e Comments TISSUE EXAM 2019-11-02 Surgical Pathology 17:32:00 Report Case: [id number] Authorizing Provider: Feliz Le MD Collected: 10/30/2019 1037 Ordering Location: [facility] PERIOPER[facility]IVE Received: 10/31/2019 0846 SERVICES Pathologist: [...] BY TUMOR Signing Pathologist Direct Phone Line: [phone] ally signed by Yan Hays MD on 11/02/2019 at 5:32 PMThe invasive component represents no more than 5% of the total tumor mass. 12051 X 2Preoperative and postoperative diagnoses: bladder tumorA. [...] Test Item Value Reference Range Interpretation [facility] POC-GLUCOSE METER (BEAKER) 76 mg/dL 70-110 : TESTED AT [facility] [address] (test code = 1538) [place], [id number]: Shuttle Car Operator/Techni jordana ID = [id number] for SEBASTIAN LINO
--- NOTE | 2021-05-31 20:02 | ER ---
Nurse's Notes [facility] Name: Noah Whyte Age: 80 yrs Sex: Male : 1940 Arrival Date: 05/31/2021 Time: 18:37 Bed 6 Private MD: Diagnosis: Wasp sting right thumb. Cellulitis right hand Presentation: 05/31 18:56 Chief complaint: Patient states: Insect sting to R hand thumb this morning. Entire hand ll1 is red and swollen now. Red streak radiates up arm into AC area. No fever. Coronavirus screen: Client denies travel out of the [place] in the last 14 days. At this time, the client does not indicate any symptoms associated with coronavirus-19. Ebola Screen: Patient denies travel to an Ebola-affected area in the 21 days before illness onset. Initial Sepsis Screen: Does the patient meet any 2 criteria? No. Patient's initial sepsis screen is negative. Does the patient have a suspected source of infection? Yes: Skin breakdown/wound. Risk Assessment: Do you want to hurt yourself or someone else? Patient reports no desire to harm self or others. Onset of symptoms was May 31, 2021. 18:56 Method Of Arrival: Ambulatory ll1 18:56 Acuity: JAIMIE 3 ll1 Triage Assessment: 20:12 General: Appears in no apparent distress. Behavior is calm, cooperative. Pain: Denies ph pain. Historical: - Allergies: 18:58 Clarithromycin; ll1 18:58 Levofloxacin; ll1 - Home Meds: 18:58 pantoprazole 40 mg Oral TbEC 1 tab once daily [Active]; ll1 - PMHx: 18:58 Bladder Tumor - Cancer; GERD; High Cholesterol; Hypertension; Hypothyroidism; Vertigo; ll1 - PSHx: 18:58 cataract repair; TURP; ll1 - Immunization history:: Client reports receiving the 2nd dose of the Covid vaccine, Flu vaccine is up to date. Last tetanus immunization: < 10 years ago. - Social history:: Smoking status: Patient denies any tobacco usage or history of. Screenin:11 Abuse screen: Denies threats or abuse. Denies injuries from another. Nutritional ph screening: No deficits noted. Tuberculosis screening: No symptoms or risk factors identified. Fall Risk None identified. Vital Signs: 18:56 BP 143 / 80; Pulse 71; Resp 15; Temp 98.4; Pulse Ox 100% ; Weight 76.2 kg; Height 5 ft. ll1 8 in. (172.72 cm); Pain 0/10; 18:56 Body Mass Index 25.54 (76.20 kg, 172.72 cm) ll1 ED Course: 18:37 Patient arrived in ED. ds1 18:58 Triage completed. ll1 19:00 Arm band placed on. ll1 19:44 Jesus Pope MD is Attending Physician. pkl 20:11 Patient has correct armband on for positive identification. ph 20:11 No provider procedures requiring assistance completed. Patient did not have IV access ph during this emergency room visit. Administered Medications: 20:02 Drug: SOLU-Medrol (methylPREDNISolone sodium succinate) 125 mg Route: IM; Site: left ph deltoid; 20:06 Drug: Clindamycin 300 mg Route: PO; ph Outcome: 20:02 Discharge ordered by . pkl 20:12 Discharged to home ambulatory. ph 20:12 Condition: good 20:12 Discharge instructions given to patient. 20:14 Patient left the ED. ph Signatures: Jesus Pope MD MD pkl Cherri Fung ds1 Evette Suarez RN RN ph Jose Kaufman RN RN ll1
--- NOTE | 2021-05-31 20:03 | EDPHYS ---
Physician Documentation [facility] Name: Noah Whyte Age: 80 yrs Sex: Male : 1940 Arrival Date: 05/31/2021 Time: 18:37 Bed 6 Private MD: ED Physician Jesus Pope HPI: 05/31 19:55 This 80 yrs old Male presents to ER via Ambulatory with complaints of Stung pkl By Insect. 19:55 The patient was bitten on the right thumb, by a wasp. Onset: The symptoms/episode pkl began/occurred this morning. Secondary to the bite the patient reports Swelling right hand and itching. Historical: - Allergies: 18:58 Clarithromycin; ll1 18:58 Levofloxacin; ll1 - Home Meds: 18:58 pantoprazole 40 mg Oral TbEC 1 tab once daily [Active]; ll1 - PMHx: 18:58 Bladder Tumor - Cancer; GERD; High Cholesterol; Hypertension; Hypothyroidism; Vertigo; ll1 - PSHx: 18:58 cataract repair; TURP; ll1 - Immunization history:: Client reports receiving the 2nd dose of the Covid vaccine, Flu vaccine is up to date. Last tetanus immunization: < 10 years ago. - Social history:: Smoking status: Patient denies any tobacco usage or history of. ROS: 19:55 Eyes: Negative for injury, pain, redness, and discharge, ENT: Negative for injury, pkl pain, and discharge, Neck: Negative for injury, pain, and swelling, Cardiovascular: Negative for chest pain, palpitations, and edema, Respiratory: Negative for shortness of breath, cough, wheezing, and pleuritic chest pain, Abdomen/GI: Negative for abdominal pain, nausea, vomiting, diarrhea, and constipation, Back: Negative for injury and pain, : Negative for injury, bleeding, discharge, and swelling. 19:55 MS/extremity: Positive for pain, swelling, of the right hand, itching. 19:55 Skin: Positive for erythema, swelling, of the right hand. 19:55 Neuro: Negative for altered mental status, loss of consciousness. Exam: 19:55 Head/Face: Normocephalic, atraumatic. Eyes: Pupils equal round and reactive to light, pkl extra-ocular motions intact. Lids and lashes normal. Conjunctiva and sclera are non-icteric and not injected. Cornea within normal limits. Periorbital areas with no swelling, redness, or edema. ENT: Nares patent. No nasal discharge, no septal abnormalities noted. Tympanic membranes are normal and external auditory canals are clear. Oropharynx with no redness, swelling, or masses, exudates, or evidence of obstruction, uvula midline. Mucous membranes moist. Neck: Trachea midline, no thyromegaly or masses palpated, and no cervical lymphadenopathy. Supple, full range of motion without nuchal rigidity, or vertebral point tenderness. No Meningismus. Chest/axilla: Normal chest wall appearance and motion. Nontender with no deformity. No lesions are appreciated. Cardiovascular: Regular rate and rhythm with a normal S1 and S2. No gallops, murmurs, or rubs. Normal PMI, no JVD. No pulse deficits. Respiratory: Lungs have equal breath sounds bilaterally, clear to auscultation and percussion. No rales, rhonchi or wheezes noted. No increased work of breathing, no retractions or nasal flaring. Abdomen/GI: Soft, non-tender, with normal bowel sounds. No distension or tympany. No guarding or rebound. No evidence of tenderness throughout. Back: No spinal tenderness. No costovertebral tenderness. Full range of motion. Neuro: Awake and alert, GCS 15, oriented to person, place, time, and situation. Cranial nerves II-XII grossly intact. Motor strength 5/5 in all extremities. Sensory grossly intact. Cerebellar exam normal. Normal gait. 19:55 Musculoskeletal/extremity: Extremities: grossly normal except: noted in the Wasp sting right thumb. Right hand swollen, red and itching: Vital Signs: 18:56 BP 143 / 80; Pulse 71; Resp 15; Temp 98.4; Pulse Ox 100% ; Weight 76.2 kg; Height 5 ft. ll1 8 in. (172.72 cm); Pain 0/10; 18:56 Body Mass Index 25.54 (76.20 kg, 172.72 cm) ll1 MDM: 19:44 Patient medically screened. pkl 19:55 Data reviewed: vital signs, nurses notes. ED course: Advised to elevate right hand. To pkl follow up with PCP in 2 to 3 days, To return if necessary. Patient understood instructions. 05/31 19:54 Order name: Sling; Complete Time: 20:11 pkl Administered Medications: 20:02 Drug: SOLU-Medrol (methylPREDNISolone sodium succinate) 125 mg Route: IM; Site: left ph deltoid; 20:06 Drug: Clindamycin 300 mg Route: PO; ph Disposition Summary: 05/31/21 20:02 Discharge Ordered Location: Home pkl Problem: new pkl Symptoms: are unchanged pkl Condition: Stable pkl Diagnosis - Wasp sting right thumb. Cellulitis right hand pkl Followup: pkl - With: Private Physician - When: 2 - 3 days - Reason: Re-evaluation by your physician Discharge Instructions: - Discharge Summary Sheet pkl Forms: - Medication Reconciliation Form pkl - Thank You Letter pkl - Antibiotic Education pkl - Prescription Opioid Use pkl Prescriptions: - Clindamycin HCl 300 mg Oral Capsule - take 1 capsule by ORAL route every 6 hours for 7 days; 21 capsule; Refills: 0, pkl Product Selection Permitted - Prednisone 20 mg Oral Tablet - take 1 tablet by ORAL route once daily for 5 days; 5 tablet; Refills: 0, pkl Product Selection Permitted Signatures: Jesus Pope MD MD pkl Evette Suarez RN RN ph Jose Kaufman RN RN ll1
[2021-05-31] MEDS ORDERED: METHYLPREDNISOLONE 125 MG INJ ONE (20:14)
[2021-05-31 20:20] VITALS: BP 143/80; TEMP 98.4; O2SAT 100
== END 2021-05-31 20:14 | disposition home or self-care (01) ==
LOC: ER 18:36
DX: L03.011 Cellulitis of right finger (principal); I10 Essential (primary) hypertension; Z85.51 Personal history of malignant neoplasm of bladder; Z88.1 Allergy status to other antibiotic agents; Z88.3 Allergy status to other anti-infective agents
CPT/HCPCS: 96372; 99283; J2930

== ENCOUNTER 2021-06-02 16:47 | Emergency (ER) | payer OTHER ==
--- OUTSIDE RECORDS SUMMARY | 2021-06-02 16:50 | XMS REPORT | Continuity of Care Document ---
:1940 Author Organization [facility] t Address [address] [place] [address] Care Team Providers Name Role Phone Jeannette Mccoy DO Primary Care Physician Rey WORLEY Attending Clinician REY Attending Clinician Unavailable REY Admitting Clinician Unavailable Problems Condition Condition Condition Status Onset Resolution Last Treating Co mments Source Name Details Category Date Date Treatment Clinician Date 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 2[facility]17 [facility] 00 [place] Allergies, Adverse Reactions, Alerts Allergy Allergy Status Severity Reaction(s) Onset Inactive Treating Comm ents Source Name Type Date Date Clinician Levoflox Drug Active 2018-[address] [facility] acin Intolera 2-11 [facility] 00:[facility]: Medical 00 [place] Clarithr Adverse Active diarrhea, [facility] omycin Reaction bad taste, [facility] - dizziness [facility] Levaquin Adverse Active severe leg [facility] Reaction cramps [facility] Social History Social Habit Start Date Stop Date Quantity Comments Source Sex Assigned At [facility] Tobacco use and 2019-10-31 2019-10-31 Never used [facility] Grace kes - exposure 00:00:00 00:00:00 [facility] Alcohol intake 2019-10-31 2019-10-31 Current drinker [facility] Amanda mcarthur [facility] (finding[facility] Smoking Status Start Date Stop Date Source Never sm[facility] Medications Ordered Filled Start Stop Current Ordering Indication Dosage Frequency Signature Comments Components Source Medication Medication Date Date Medication? Clinician (SIG) Name Name Accu-Chek Accu-Chek Yes Na Mccoy as [facility] directed [facility]: [facility] 00 [facility] lisinopril 2018-11 Yes 40mg QD Take [address] (PRINIVIL,Z 2-17 by mouth Luke s - ESTRIL) 40 18:08: daily. Medic al MG tablet 13 [place] rosuvastati 2018-11 Yes 40mg QD Take [address] n (CRESTOR) 2-17 by mouth Luke s - 40 MG 18:08: daily. Medical tablet 13 [place] pantoprazol 2018-11 Yes 40mg QD Take [address] e 2-17 by mouth [facility] - (PROTONIX) 18:08: daily. Medic al 40 MG 13 [place] tablet levothyroxi 2018-11 Yes QD Take by [facility] ne 25 mcg 2-17 mouth [facility] - Cap 18:08: daily . Medical 13 [place] montelukast 2018-11 Yes 10mg QD Take [address] (SINGULAIR) 2-17 by mouth Luke [facility] - 10 mg 18:08: nightly. Medical tablet 13 [place] meclizine 2018-11 Yes 25mg QD Take [address] (ANTIVERT) 2-17 by mouth [facility] - 25 MG 18:08: daily. Medical tablet 13 [place] Missing or 2018-11 [address] [facility] Non-Formula 2-17 100mg QID, Grace kes - ry 18:08: Zinc 50mg Medical Medication 13 daily, Center Coenzyme 10 BID, Vit D2 1000u daily, Align probiotic, Chromium 200mg daily, Areds 2caps daily. Glucometer Glucometer Yes Na Mccoy one [facility] Levothyroxi Levothyroxi Yes Na Mccoy [address] [facility] ne Sodium ne Sodium on an Luke [facility] - empty Memoria stomach in l the [facility] morning ent Clinics Lancets Lancets Yes Na Mccoy as [facility] directed [facility] Accu-Chek Accu-Chek Yes Na Mccoy as [facility] Softclix Softclix directed Sara es - Lancets Lancets [facility]oria [facility] Meclizine Meclizine Yes Na Mccoy TAKE [address] [facility] HCl HCl TABLET BY [facility] - MOUTH Memoria THREE l TIMES Outpati DAILY ent Clinics Mobic Mobic Yes Na Mccoy [address] [facility] Euthyrox Euthyrox Yes Na Mccoy TAKE [address] TABLET BY [facility] - MOUTH ONCE Memoria DAILY IN l THE Outpati MORNING ON ent AN EMPTY Clinics STOMACH EpiPen EpiPen Yes Na Mccoy not [facility] 2-Gerald 2-Gerald defined [facility] Olopatadine Olopatadine Yes Na Mccoy [address] [facility] HCl HCl in each [facility] - nostril [facility] Meclizine Meclizine Yes Na Mccoy TAKE [address] [facility] HCl HCl TABLET BY [facility] - MOUTH 3 Memoria TIMES A l DAY [facility] Levothyroxi Levothyroxi Yes Na Mccoy [address] [facility] ne Sodium ne Sodium on an Luke s - empty Memoria stomach in l the Outpati morning ent Clinics Cipro Cipro Yes Na Mccoy [address] [facility] Augmentin Augmentin Yes Na Mccoy [address] [facility] Crestor Crestor Yes Na Mccoy [address] [facility] Pantoprazol Pantoprazol Yes Na Mccoy [address] e Sodium e Sodium [facility] blood blood Yes Na Mccoy as [facility] glucose glucose directed [facility] - test strip test strip Mem oria l [facility] Singulair Singulair Yes Na Mccoy [address] [facility] Lisinopril Lisinopril Yes Na Mccoy [address] [facility] Immunizations Ordered Filled Immunization Date Status Comments Sourc e Immunization Name Name Mary Hernandez 2019-07-[address] [facility] Procedures This patient has no known [...] 00:00:00 (1 of 1 - Medical Center [id number]) [code = PNEUMOCOCCAL 65+ YRS (1 of 1 - [id number] PCV13)] Encounters Start End Encounter Admission Attending Care Care Encounter Source Date/Time Date/Time Type Type Clinicians Facility Department ID 2021-06-01 2021-06-01 Outpatient [facility] [id number] [facility] 2021-04-29 2021-04-29 Outpatient [facility] [id number] [facility] 2021-03-10 2021-03-10 Outpatient [facility] [id number] [facility] 2021-03-05 2021-03-05 Outpatient [facility] [id number] [facility] 2021-02-17 2021-02-17 Outpatient [facility] [id number] [facility] 2021-02-16 2021-02-16 Outpatient [facility] [id number] [facility] 2021-02-12 2021-02-12 Outpatient [facility] [id number] [facility] 2021-02-11 2021-02-11 Outpatient [facility] [id number] [facility] 2021-01-21 2021-01-21 Outpatient [facility] [id number] [facility] 2021-01-02 2021-01-02 Outpatient [facility] [id number] [facility] 2020-10-24 2020-10-24 Outpatient [facility] [id number] [facility] 2020-10-07 2020-10-07 Outpatient [facility] [id number] [facility] 2020-10-07 2020-10-07 Outpatient [facility] [id number] [facility] 2020-10-07 2020-10-07 Outpatient [facility] [id number] [facility] 2020-08-27 2020-08-27 Outpatient [facility] [id number] [facility] 2020-07-23 2020-07-23 [facility] [id number] 08:40:00 08:40:00 t [employer] [place] - Drive [facility] l Medicine Outpati ent Clinics 2020-07-22 2020-07-22 [facility] [id number] 17:01:00 17:01:00 [place] [employer] - Drive [facility] l Medicine Outpati ent Clinics 2020-07-07 2020-07-07 [facility] [id number] 16:22:00 16:22:00 t [employer] s - Drive [facility] Medicine l Medicine Outpati ent Clinics 2020-07-04 2020-07-04 [facility] [id number] 11:20:00 11:20:00 [place] [employer] [place] s - Drive [facility] Medicine Outpati ent Clinics 2020-07-04 2020-07-04 [facility] [id number] 08:10:00 08:10:00 t [place] [employer] Lu[employer]elia Feliz s - Drive [facility] Medicine Outpati ent Clinics 2020-04-22 2020-04-22 [facility] [id number] 13:20:00 13:20:00 t [place] [employer] Lu[employer] Feliz s - Drive [facility] Medicine Outpati ent Clinics 2019-11-21 2019-11-21 Office ReyESTEBANNoa [id number] 14:51:13 16:43:49 Visit Feliz AMBULATOR [id number] 2019-10-23 2019-10-23 [facility] [id number] 13:20:00 13:20:00 t [place] [employer] Lu[employer]elia Feliz s - Drive [facility] Medicine Outpati ent Clinics 2019-08-02 2019-08-02 [facility] [id number] 10:02:00 10:02:00 t [place] [employer] Lu[employer]elia Feliz s - Drive [facility] Medicine Outpati ent Clinics 2019-07-25 2019-07-25 [facility] [id number] 09:40:00 09:40:00 t [place] [employer] Lu[employer]elia Feliz s - Drive [facility] Medicine Outpati ent Clinics 2019-05-22 2019-05-22 [facility] [id number] 09:20:00 09:20:00 t [place] [employer] Lu[employer]elia Feliz s - Drive [facility] Medicine Outpati ent Clinics 2019-04-24 2019-04-24 [facility] [id number] 09:40:00 09:40:00 t [place] [employer] Lu[employer]elia Feliz s - Drive [facility] Medicine Outpati ent Clinics 2019-02-01 2019-02-01 [facility] [id number] 09:30:00 09:30:00 [place] [address] Luke s - Drive [facility] Outpati ent Clinics 2019-01-16 2019-01-16 [facility] [id number] 09:25:00 09:25:00 [place] [address] Luke s - Drive [facility] Outpati ent Clinics 2018-12-18 2018-12-18 [facility] [id number] 13:34:00 13:34:00 [place] [address] [place] - Drive [facility] Medicine Outpati ent Clinics 2018-12-18 2018-12-18 [facility] [id number] 09:00:00 09:00:00 [place] [address] Luke s - Drive [facility] Outpati ent Clinics 2018-12-15 2018-12-15 [facility] [id number] 10:47:00 10:47:00 [place] [address] Luke s - Drive [facility] Outpati ent Clinics 2018-10-24 2018-10-24 [facility] [id number] 08:30:00 08:30:00 [place] [address] Luke s - Drive [facility] Results Test Description Test Time Test Comments Results Result Sour e Comments TISSUE EXAM 2019-11-02 Surgical Pathology 17:32:00 Report Case: [id number] Authorizing Provider: Feliz Le MD Collected: 10/30/2019 1037 Ordering Location: [facility] PERI[facility] Received: 10/31/2019 0846 SERVICES Pathologist: [...] BY TUMOR Signing Pathologist Direct Phone Line: [phone] ally signed by Yan Hays MD on 11/02/2019 at 5:32 PMThe invasive component represents no more than 5% of the total tumor mass. [id number] X 2Preoperative and postoperative diagnoses: bladder tumorA. [...] Test Item Value Reference Range Interpretation Comme [facility] POC-GLUCOSE METER ([facility]) 76 mg/dL 70-110 : TESTED AT [facility] [address] [facility] (test code = 1538) [place], [id number]: Training Director/Techni jordana ID = [id number] for SEBASTIAN LINO
--- NOTE | 2021-06-02 18:44 | EDPHYS ---
Physician Documentation [facility] Name: Noah Whyte Age: 80 yrs Sex: Male : 1940 Arrival Date: 06/02/2021 Time: 16:49 Bed 6 Private MD: Kori Mccoy ED Physician Dilan Seo HPI: 06/02 18:38 This 80 yrs old Male presents to ER via Ambulatory with complaints of Low kdr Blood Pressure, Doesn't Feel Right. 18:38 The patient states that he was here on Tuesday after being stung by a bee on the right kdr thumb. He was discharged on clarithromycin and prednisone. After reading about the side effects, he felt that he may be getting hypotensive due to the interaction of the antibiotic with the tamsulosin. The patient states his normal blood pressure is around 125-130 systolic. This morning he noted his pressure to be approximately 105. The patient states that he also feels a little bit lightheaded.. Onset: The symptoms/episode began/occurred suddenly, this morning. Severity of symptoms: At their worst the symptoms were mild in the emergency department the symptoms are unchanged. The patient has not experienced similar symptoms in the past. The patient has been recently seen at the [facility] Emergency Department, this week. Historical: - Allergies: 17:10 Clarithromycin; ph 17:10 Levofloxacin; ph - Home Meds: 17:10 levothyroxine 25 mcg tab 1 tab once daily [Active]; lisinopril 40 mg Oral tab 1 tab ph once daily [Active]; meclizine 25 mg Oral tab 1 tab TID prn [Active]; montelukast 10 mg Oral tab 1 tab once daily [Active]; patadine Nasal spray twice a day [Active]; rosuvastatin 40 mg Oral tab 1 tab once daily [Active]; amlodipine 2.5 mg tab 1 tab as needed for systolic >140 [Active]; tamsulosin 0.4 mg oral cap 1 cap once daily [Active]; famotidine 40 mg Oral tab 1 tab once daily [Active]; - PMHx: 17:10 Bladder Tumor - Cancer; GERD; High Cholesterol; Hypertension; Hypothyroidism; Vertigo; ph - PSHx: 17:10 cataract repair; TURP; ph - Immunization history:: Client reports receiving the 2nd dose of the Covid vaccine. - Social history:: Smoking status: Patient denies any tobacco usage or history of. ROS: 18:38 Constitutional: Negative for fever, chills, and weight loss, Eyes: Negative for injury, kdr pain, redness, and discharge, ENT: Negative for injury, pain, and discharge, Neck: Negative for injury, pain, and swelling, Cardiovascular: Negative for chest pain, palpitations, and edema, Respiratory: Negative for shortness of breath, cough, wheezing, and pleuritic chest pain, Abdomen/GI: Negative for abdominal pain, nausea, vomiting, diarrhea, and constipation, Back: Negative for injury and pain, : Negative for injury, bleeding, discharge, and swelling, MS/Extremity: Negative for injury and deformity, Skin: Negative for injury, rash, and discoloration, Psych: Negative for depression, anxiety, suicide ideation, homicidal ideation, and hallucinations, Allergy/Immunology: Negative for hives, rash, and allergies, Endocrine: Negative for neck swelling, polydipsia, polyuria, polyphagia, and marked weight changes, Hematologic/Lymphatic: Negative for swollen nodes, abnormal bleeding, and unusual bruising. 18:38 Neuro: Positive for Patient feels slightly lightheaded and dizzy. Exam: 18:38 Constitutional: This is a well developed, well nourished patient who is awake, alert, kdr and in no acute distress. Head/Face: Normocephalic, atraumatic. Eyes: Pupils equal round and reactive to light, extra-ocular motions intact. Lids and lashes normal. Conjunctiva and sclera are non-icteric and not injected. Cornea within normal limits. Periorbital areas with no swelling, redness, or edema. Neck: Trachea midline, no thyromegaly or masses palpated, and no cervical lymphadenopathy. Supple, full range of motion without nuchal rigidity, or vertebral point tenderness. No Meningismus. Chest/axilla: Normal chest wall appearance and motion. Nontender with no deformity. No lesions are appreciated. Cardiovascular: Regular rate and rhythm with a normal S1 and S2. No gallops, murmurs, or rubs. Normal PMI, no JVD. No pulse deficits. Respiratory: Lungs have equal breath sounds bilaterally, clear to auscultation and percussion. No rales, rhonchi or wheezes noted. No increased work of breathing, no retractions or nasal flaring. Abdomen/GI: Soft, non-tender, with normal bowel sounds. No distension or tympany. No guarding or rebound. No evidence of tenderness throughout. Back: No spinal tenderness. No costovertebral tenderness. Full range of motion. Skin: Warm, dry with normal turgor. Normal color with no rashes, no lesions, and no evidence of cellulitis. MS/ Extremity: Pulses equal, no cyanosis. Neurovascular intact. Full, normal range of motion. Neuro: Awake and alert, GCS 15, oriented to person, place, time, and situation. Cranial nerves II-XII grossly intact. Motor strength 5/5 in all extremities. Sensory grossly intact. Cerebellar exam normal. Normal gait. Psych: Awake, alert, with orientation to person, place and time. Behavior, mood, and affect are within normal limits. Vital Signs: 17:05 BP 111 / 65; Pulse 55; Resp 18; Temp 97.5; Pulse Ox 100% on R/A; Weight 78.02 kg; ph Height 5 ft. 8 in. (172.72 cm); 18:30 BP 105 / 61 LA Supine; Pulse 51; Resp 16; Pulse Ox 100% on R/A; dh3 18:32 BP 110 / 64 LA Sitting; Pulse 52; Resp 16; Pulse Ox 100% on R/A; dh3 18:34 BP 110 / 63 LA Standing; Pulse 54; Resp 17; Pulse Ox 100% on R/A; dh3 17:05 Body Mass Index 26.15 (78.02 kg, 172.72 cm) ph MDM: 18:43 Patient medically screened. kdr 18:47 Data reviewed: vital signs, nurses notes. Counseling: I had a detailed discussion with kdr the patient and/or guardian regarding: the historical points, exam findings, and any diagnostic results supporting the discharge/admit diagnosis, the need for outpatient follow up. 06/02 18:12 Order name: Orthostatics; Complete Time: 18:40 kdr Administered Medications: 18:42 Drug: Benadryl (diphenhydrAMINE) 25 mg Route: PO; hb 18:48 Follow up: Response: Medication administered at discharge. Disposition Summary: 06/02/21 18:43 Discharge Ordered Location: Home kdr Problem: new kdr Symptoms: have improved kdr Condition: Stable kdr Diagnosis - Dizziness and giddiness kdr Followup: kdr - With: Kori Mccoy MD - When: 2 - 3 days - Reason: If symptoms return, Further diagnostic work-up, Recheck today's complaints, Continuance of care, Re-evaluation by your physician Discharge Instructions: - Discharge Summary Sheet kdr - Dizziness, [id number] kdr Forms: - Medication Reconciliation Form kdr - Thank You Letter kdr Signatures: Dilan Seo MD MD kdr Evette Suarez RN RN Bijal Wu RN RN
--- NOTE | 2021-06-02 18:44 | ER ---
Nurse's Notes [facility] Name: Noah Whyte Age: 80 yrs Sex: Male : 1940 Arrival Date: 06/02/2021 Time: 16:49 Bed 6 Private MD: Kori Mccoy Diagnosis: Dizziness and giddiness Presentation: 06/02 17:05 Chief complaint: Patient states: Low BP at home 108/56, reports "feeling bad" when BP ph was low, states that he recently started taking tamsulosin at night, was also seen in ED on Tuesday for a wasp sting and prescribed steroids and antibiotics. Coronavirus screen: Client denies travel out of the [place] in the last 14 days. At this time, the client does not indicate any symptoms associated with coronavirus-19. Ebola Screen: No symptoms or risks identified at this time. Initial Sepsis Screen: Does the patient meet any 2 criteria? No. Patient's initial sepsis screen is negative. Does the patient have a suspected source of infection? No. Patient's initial sepsis screen is negative. Risk Assessment: Do you want to hurt yourself or someone else? Patient reports no desire to harm self or others. Onset of symptoms was June 02, 2021. 17:05 Method Of Arrival: Ambulatory ph 17:05 Acuity: JAIMIE 3 ph Historical: - Allergies: 17:10 Clarithromycin; ph 17:10 Levofloxacin; ph - Home Meds: 17:10 levothyroxine 25 mcg tab 1 tab once daily [Active]; lisinopril 40 mg Oral tab 1 tab ph once daily [Active]; meclizine 25 mg Oral tab 1 tab TID prn [Active]; montelukast 10 mg Oral tab 1 tab once daily [Active]; patadine Nasal spray twice a day [Active]; rosuvastatin 40 mg Oral tab 1 tab once daily [Active]; amlodipine 2.5 mg tab 1 tab as needed for systolic >140 [Active]; tamsulosin 0.4 mg oral cap 1 cap once daily [Active]; famotidine 40 mg Oral tab 1 tab once daily [Active]; - PMHx: 17:10 Bladder Tumor - Cancer; GERD; High Cholesterol; Hypertension; Hypothyroidism; Vertigo; ph - PSHx: 17:10 cataract repair; TURP; ph - Immunization history:: Client reports receiving the 2nd dose of the Covid vaccine. - Social history:: Smoking status: Patient denies any tobacco usage or history of. Screenin:48 Abuse screen: Denies threats or abuse. Denies injuries from another. Nutritional hb screening: No deficits noted. Tuberculosis screening: No symptoms or risk factors identified. Fall Risk None identified. Assessment: 17:25 General: Appears in no apparent distress. Behavior is calm, cooperative. Pain: Denies hb pain. Neuro: Level of Consciousness is awake, alert, obeys commands, Oriented to person, place, time, situation. Cardiovascular: Patient's skin is warm and dry. Respiratory: Respiratory effort is even, unlabored, Respiratory pattern is regular, symmetrical. GI: No signs and/or symptoms were reported involving the gastrointestinal system. : No signs and/or symptoms were reported regarding the genitourinary system. EENT: No signs and/or symptoms were reported regarding the EENT system. Derm: Skin is pink, warm \\T\\ dry. Musculoskeletal: No signs and/or symptoms reported regarding the musculoskeletal system. 18:42 Reassessment: Patient appears in no apparent distress at this time. Patient and/or hb family updated on plan of care and expected duration. Pain level reassessed. Patient is alert, oriented x 3, equal unlabored respirations, skin warm/dry/pink. Vital Signs: 17:05 BP 111 / 65; Pulse 55; Resp 18; Temp 97.5; Pulse Ox 100% on R/A; Weight 78.02 kg; ph Height 5 ft. 8 in. (172.72 cm); 18:30 BP 105 / 61 LA Supine; Pulse 51; Resp 16; Pulse Ox 100% on R/A; dh3 18:32 BP 110 / 64 LA Sitting; Pulse 52; Resp 16; Pulse Ox 100% on R/A; dh3 18:34 BP 110 / 63 LA Standing; Pulse 54; Resp 17; Pulse Ox 100% on R/A; dh3 17:05 Body Mass Index 26.15 (78.02 kg, 172.72 cm) ph ED Course: 16:49 Patient arrived in ED. ds1 16:50 Kori Mccoy MD is Private Physician. ds1 17:10 Triage completed. ph 17:13 Arm band placed on Patient placed in an exam room, on a stretcher. ph 17:32 Dilan Seo MD is Attending Physician. kdr 17:48 Patient has correct armband on for positive identification. Bed in low position. Call light in reach. 18:42 Bijal Wu, RN is Primary Nurse. hb 18:42 Kori Mccoy MD is Referral Physician. kdr 18:48 No provider procedures requiring assistance completed. Patient did not have IV access hb during this emergency room visit. Administered Medications: 18:42 Drug: Benadryl (diphenhydrAMINE) 25 mg Route: PO; hb 18:48 Follow up: Response: Medication administered at discharge. hb Outcome: 18:43 Discharge ordered by MD. kdr 18:48 Discharged to home ambulatory, with significant other. hb 18:48 Condition: stable 18:48 Discharge instructions given to patient, significant other, Instructed on discharge instructions, follow up and referral plans. medication usage, Demonstrated understanding of instructions, follow-up care, medications. 18:50 Patient left the ED. hb Signatures: Dilan Seo MD MD [facility] Cherri Fung ds1 Evette Suarez RN RN Bijal Wu, RN RN Dalia [place] 3
[2021-06-02] MEDS ORDERED: DIPHENHYDRAMINE 25 MG TAB/CAP ONE (18:51)
[2021-06-02 19:27] VITALS: TEMP 97.5; O2SAT 100
[2021-06-02 19:32] VITALS: BP 110/63
== END 2021-06-02 18:50 | disposition home or self-care (01) ==
LOC: ER 16:47
DX: R42 Dizziness and giddiness (principal); I10 Essential (primary) hypertension; E03.9 Hypothyroidism, unspecified; E78.00 Pure hypercholesterolemia, unspecified; Z88.3 Allergy status to other anti-infective agents; Z85.51 Personal history of malignant neoplasm of bladder
CPT/HCPCS: 99283

== ENCOUNTER 2021-06-16 09:17 | Emergency (ER) | payer OTHER ==
--- OUTSIDE RECORDS SUMMARY | 2021-06-16 09:22 | XMS REPORT | Continuity of Care Document ---
:1940 Author Organization [facility] t Address [address] [place] [address] Care Team Providers Name Role Phone Jeannette Mccoy DO Primary Care Physician Rey WORLEY Attending Clinician REY Attending Clinician Unavailable REY Admitting Clinician Unavailable Problems Condition Condition Condition Status Onset Resolution Last Treating Co mments Source Name Details Category Date Date Treatment Clinician Date 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 2-17 [facility] 00 [place] Allergies, Adverse Reactions, Alerts Allergy Allergy Status Severity Reaction(s) Onset Inactive Treating Comm ents Source Name Type Date Date Clinician Levoflox Drug Active 2018-[address] [facility] acin Intolera 2-11 [facility]ce 00:[facility]: Medical 00 [place] Clarithr Adverse Active diarrhea, [facility] omycin Reaction bad taste, [facility] - dizziness [facility] Levaquin Adverse Active severe leg [facility] Reaction cramps [facility] Social History Social Habit Start Date Stop Date Quantity Comments Source Sex Assigned At [facility] Tobacco use and 2019-10-31 2019-10-31 Never used [facility] Grace kes - exposure 00:00:00 00:00:00 [facility] Alcohol intake 2019-10-31 2019-10-31 Current drinker [facility] Amanda mcarthur [facility] Smoking Status Start Date Stop Date Source Never sm[facility] Medications Ordered Filled Start Stop Current Ordering Indication Dosage Frequency Signature Comments Components Source Medication Medication Date Date Medication? Clinician (SIG) Name Name Accu-Chek Accu-Chek Yes Na Mccoy as [facility] directed [facility] lisinopril 2018-11 Yes 40mg QD Take [address] (PRINIVIL,Z 2-17 by mouth [facility] - ESTRIL) 40 18:08: daily. Medic al MG tablet 13 [place] rosuvastati 2018-11 Yes 40mg QD Take [address] [facility] n (CRESTOR) 2-17 by mouth [facility] - 40 MG 18:08: daily. Medical tablet 13 [place] pantoprazol 2018-11 Yes 40mg QD Take [address] [facility] e 2-17 by mouth [facility] - (PROTONIX) 18:08: daily. Medic al 40 MG 13 [place] tablet levothyroxi 2018-11 Yes QD Take by [facility] ne 25 mcg 2-17 mouth [facility] - Cap 18:08: daily . Medical 13 [place] montelukast 2018-11 Yes 10mg QD Take [address] [facility] (SINGULAIR) 2-17 by mouth [facility] - 10 mg 18:08: nightly. Medical tablet 13 [place] meclizine 2018-11 Yes 25mg QD Take [address] (ANTIVERT) 2-17 by mouth [facility] - 25 MG 18:08: daily. Medical tablet 13 Mck[place] Missing or 2018-[address] Yes [address] [facility] Non-Formula 2-17 100mg QID, Grace kes - ry 18:08: Zinc 50mg Medical Medication 13 daily, Center Coenzyme 10 BID, Vit D2 1000u daily, Align probiotic, Chromium 200mg daily, Areds 2caps daily. Glucometer Glucometer Yes Na Mccoy one [facility] Levothyroxi Levothyroxi Yes Na Mccoy [address] [facility] ne Sodium ne Sodium on an [facility] - empty [facility] stomach in l [facility] Lancets Lancets Yes Na Mccoy as [facility] directed [facility] Accu-Chek Accu-Chek Yes Na Mccoy as [facility] Softclix Softclix directed Sara es - Lancets Lancets [facility] Meclizine Meclizine Yes Na Mccoy TAKE [address] [facility] HCl HCl TABLET BY [facility] - MOUTH Memoria THREE l TIMES Outpati DAILY ent Clinics Mobic Mobic Yes Na Mccoy [address] [facility] Euthyrox Euthyrox Yes Na Mccoy TAKE [address] TABLET BY [facility] - MOUTH ONCE Memoria DAILY IN l THE Outpati MORNING ON ent AN EMPTY Clinics STOMACH EpiPen EpiPen Yes Na Mccoy not [facility] 2-Gerald 2-Gerald defined [facility] Olopatadine Olopatadine Yes Na Mccoy [address] [facility] HCl HCl in each [facility] - nostril [facility] Meclizine Meclizine Yes Na Mccoy TAKE [address] [facility] HCl HCl TABLET BY [facility] - MOUTH 3 Memoria TIMES A l DAY [facility] Levothyroxi Levothyroxi Yes Na Mccoy [address] [facility] ne Sodium ne Sodium on an [facility] - empty Memoria stomach in l the Outpati morning ent Clinics Cipro Cipro Yes Na Mccoy [address] [facility] Augmentin Augmentin Yes Na Mccoy [address] [facility] Crestor Crestor Yes Na Mccoy [address] [facility] Pantoprazol Pantoprazol Yes Na Mccoy [address] [facility] e Sodium e Sodium [facility] blood blood Yes Na Mccoy as [facility] glucose glucose directed [facility] - test strip test strip [facility] Singulair Singulair Yes Na Mccoy [address] [facility] Lisinopril Lisinopril Yes Na Mccoy [address] [facility] Immunizations Ordered Filled Immunization Date Status Comments Sourc e Immunization Name Name Mary Hernandez 2019-07-[address] [facility] Procedures This patient has no known procedures. [...] 00:00:00 (1 of 1 - Medical Center [id number] PCV13) [code = PNEUMOCOCCAL 65+ YRS (1 of 1 - POMZ35_Chtketi PCV13)] Encounters Start End Encounter Admission Attending Care Care Encounter Source Date/Time Date/Time Type Type Clinicians Facility Department ID 2021-06-01 2021-06-01 Outpatient [facility] [id number] [facility] 2021-04-29 2021-04-29 [facility] [id number] [facility] 2021-03-10 2021-03-10 [facility] [id number] [facility] 2021-03-05 2021-03-05 [facility] [id number] [facility] 2021-02-17 2021-02-17 [facility] [id number] [facility] 2021-02-16 2021-02-16 Out[facility] [id number] [facility] 2021-02-12 2021-02-12 [facility] [id number] [facility] 2021-02-11 2021-02-11 [facility] [id number] [facility] 2021-01-21 2021-01-21 [facility] [id number] [facility] 2021-01-02 2021-01-02 [facility] [id number] [facility] 2020-10-24 2020-10-24 [facility] [id number] [facility] 2020-10-07 2020-10-07 [facility] [id number] [facility] 2020-10-07 2020-10-07 Out[facility] [id number] [facility] 2020-10-07 2020-10-07 Out[facility] [id number] [facility] 2020-08-27 2020-08-27 Out[facility] [id number] [facility] 2020-07-23 2020-07-23 [facility] [id number] [facility] 08:40:00 08:40:00 t [employer] s - [facility] l Medicine Outpati ent Clinics 2020-07-22 2020-07-22 [facility] [id number] 17:01:00 17:01:00 t [employer] s - Drive [facility] Medicine Outpati ent Clinics 2020-07-07 2020-07-07 [facility] [id number] 16:22:00 16:22:00 t [employer] s - Drive [facility] Medicine l Medicine Outpati ent Clinics 2020-07-04 2020-07-04 [facility] [id number] 11:20:00 11:20:00 t [employer] [facility] - Drive [facility] Medicine Outpati ent Clinics 2020-07-04 2020-07-04 [facility] [id number] 08:10:00 08:10:00 t [employer] s - Drive [facility] Medicine Outpati ent Clinics 2020-04-22 2020-04-22 [facility] [id number] 13:20:00 13:20:00 t [employer] s - Drive [facility] Medicine Outpati ent Clinics 2019-11-21 2019-11-21 Office ReyESTEBANNoa [id number] 14:51:13 16:43:49 Visit Feliz AMBULATOR [id number] 2019-10-23 2019-10-23 [facility] [id number] 13:20:00 13:20:00 t [employer] s - Drive [facility] Medicine Outpati ent Clinics 2019-08-02 2019-08-02 [facility] [id number] 10:02:00 10:02:00 t [employer] s - Drive [facility] Medicine Outpati ent Clinics 2019-07-25 2019-07-25 [facility] [id number] 09:40:00 09:40:00 t [employer] s - Drive [facility] Medicine Outpati ent Clinics 2019-05-22 2019-05-22 [facility] [id number] 09:20:00 09:20:00 t [employer] s - Drive [facility] Medicine Outpati ent Clinics 2019-04-24 2019-04-24 [facility] [id number] 09:40:00 09:40:00 t [employer] s - Drive [facility] Medicine Outpati ent Clinics 2019-02-01 2019-02-01 [facility] [id number] 09:30:00 09:30:[address] [facility] - [address] [facility] Outpati ent Clinics 2019-01-16 2019-01-16 [facility] [id number] 09:25:00 09:25:[address] [facility] - [address] [facility] Outpati ent Clinics 2018-12-18 2018-12-18 [facility] [id number] 13:34:00 13:34:[address] [facility] - [address] [facility] Medicine Outpati ent Clinics 2018-12-18 2018-12-18 [facility] [id number] 09:00:00 09:00:[address] [facility] - [address] [facility] Outpati ent Clinics 2018-12-15 2018-12-15 [facility] [id number] 10:47:00 10:47:[address] [facility] - [address] [facility] Outpati ent Clinics 2018-10-24 2018-10-24 [facility] [id number] 08:30:00 08:30:[address] [facility] - Drive [facility] Results Test Description Test Time Test Comments Results Result Sour e Comments TISSUE EXAM 2019-11-02 Surgical Pathology 17:32:00 Report Case: [id number] Authorizing Provider: Feliz Le MD Collected: 10/30/2019 1037 Ordering Location: [facility] Received: 10/31/2019 0846 SERVICES Pathologist: [...] BY TUMOR Signing Pathologist Direct Phone Line: [phone] ally signed by Yan Hays MD on 11/02/2019 at 5:32 PMThe invasive component represents no more than 5% of the total tumor mass. [id number] X 2Preoperative and postoperative diagnoses: bladder tumorA. [...] Test Item Value Reference Range Interpretation Comme [facility] POC-GLUCOSE METER ([facility]) 76 mg/dL 70-110 : TESTED AT [facility] [address] [facility] (test code = 1538) [place], [id number]: Director Of Acquisition Marketing/Techni jordana ID = [id number] for SEBASTIAN LINO
--- NOTE | 2021-06-16 10:48 | RAD REPORT ---
EXAM DESCRIPTION: CT - CTHCSPWOC - 06/16/2021 10:34 am CLINICAL HISTORY: Trauma, head and neck injury. PAIN COMPARISON: No comparisons TECHNIQUE: Axial 5 mm thick images of the head were obtained. Axial 2 mm thick images of the cervical spine were obtained with sagittal and coronal reconstruction images generated and reviewed. All CT scans are performed using dose optimization technique as appropriate and may include automated exposure control or mA/KV adjustment according to patient size. FINDINGS: CT HEAD WITHOUT CONTRAST: No acute hemorrhage, hydrocephalus or extra-axial collection is identified.No areas of brain edema or midline shift. Left frontal scalp hematoma. The paranasal sinuses and mastoids are clear.The calvarium is intact. CT CERVICAL SPINE WITHOUT CONTRAST: No fracture or subluxation.Multilevel cervical spondylosis with varying degrees of neural foraminal n arrowing bilaterally.No prevertebral soft tissues swelling is identified. IMPRESSION: No acute intracranial or cervical spine findings.
--- NOTE | 2021-06-16 10:56 | ER ---
Nurse's Notes [facility] Name: Noah Whyte Age: 80 yrs Sex: Male : 1940 Arrival Date: 06/16/2021 Time: 09:20 Bed DIS2 Private MD: Diagnosis: Fall due to bumping against object;Unspecified injury of head, initial encounter Presentation: 06/16 09:55 Chief complaint: Patient states: was walking backwards and tripped over trash can , iw fell back onto back and hit head against cement tile , no LOC, not on blood thinners , no laceration noted. 09:55 Acuity: JAIMIE 4 iw 09:55 Method Of Arrival: Ambulatory iw 09:57 Coronavirus screen: At this time, the client does not indicate any symptoms associated iw with coronavirus-19. Ebola Screen: Patient negative for fever greater than or equal to 101.5 degrees Fahrenheit, and additional compatible Ebola Virus Disease symptoms Patient denies exposure to infectious person. Patient denies travel to an Ebola-affected area in the 21 days before illness onset. No symptoms or risks identified at this time. Initial Sepsis Screen: Does the patient meet any 2 criteria? No. Patient's initial sepsis screen is negative. Does the patient have a suspected source of infection? No. Patient's initial sepsis screen is negative. Risk Assessment: Do you want to hurt yourself or someone else? Patient reports no desire to harm self or others. Onset of symptoms was June 16, 2021. Triage Assessment: 11:00 General: Appears in no apparent distress. Behavior is calm, cooperative. iw Historical: - Allergies: 09:57 Clarithromycin; iw 09:57 Levofloxacin; iw - Home Meds: :57 levothyroxine 25 mcg tab 1 tab once daily [Active]; amlodipine 2.5 mg tab 1 tab as iw needed for systolic >140 [Active]; famotidine 40 mg Oral tab 1 tab once daily [Active]; lisinopril 40 mg Oral tab 1 tab once daily [Active]; meclizine 25 mg Oral tab 1 tab TID prn [Active]; montelukast 10 mg Oral tab 1 tab once daily [Active]; pantoprazole 40 mg Oral TbEC 1 tab once daily [Active]; patadine Nasal spray twice a day [Active]; rosuvastatin 40 mg Oral tab 1 tab once daily [Active]; - PMHx: 09:57 Bladder Tumor - Cancer; GERD; High Cholesterol; Hypertension; Hypothyroidism; Vertigo; iw - PSHx: 09:57 cataract repair; TURP; iw - Immunization history:: Client reports receiving the 2nd dose of the Covid vaccine. - Social history:: Smoking status: . Screenin:00 Abuse screen: Denies threats or abuse. Denies injuries from another. Nutritional iw screening: No deficits noted. Tuberculosis screening: No symptoms or risk factors identified. Fall Risk None identified. Assessment: 11:00 General: Appears in no apparent distress. Behavior is calm, cooperative. Pain: iw Complains of pain in right side of the back of head and left side of the back of head. Neuro: Level of Consciousness is awake, alert, obeys commands, Oriented to person, place, time, situation, Moves all extremities. Full function. Cardiovascular: Capillary refill < 3 seconds in bilateral fingers Patient's skin is warm and dry. Respiratory: Respiratory effort is even, unlabored, Respiratory pattern is regular, symmetrical. Derm: Skin is intact. Vital Signs: 09:57 BP 140 / 70; Pulse 74; Resp 16; Temp 98.7; Pulse Ox 97% on R/A; Weight 74.84 kg; Height iw 5 ft. 8 in. (172.72 cm); 09:57 Body Mass Index 25.09 (74.84 kg, 172.72 cm) iw Devika Coma Score: 10:54 Eye Response: spontaneous(4). Verbal Response: oriented(5). Motor Response: obeys larry commands(6). Total: 15. ED Course: 09:20 Patient arrived in ED. mr 09:57 Triage completed. iw 09:59 Lena Ellington, RN is Primary Nurse. iw 09:59 Arm band placed on. iw 10:07 Wally Chaves MD is Attending Physician. larry 10:34 CT Head C Spine In Process Unspecified. EDMS 11:00 Patient has correct armband on for positive identification. iw 11:24 No provider procedures requiring assistance completed. Patient did not have IV access iw during this emergency room visit. Administered Medications: 10:53 Drug: Tylenol 1000 mg Route: PO; iw 11:24 Follow up: Response: No adverse reaction iw Outcome: 10:55 Discharge ordered by . larry 11:24 Discharged to home ambulatory, with family. iw 11:24 Condition: good 11:24 Discharge instructions given to patient, family, Instructed on discharge instructions, follow up and referral plans. medication usage, Demonstrated understanding of instructions, follow-up care, medications, Prescriptions given X 1. 11:25 Patient left the ED. larry Signatures: Dispatcher [employer] EDWally Hernandez MD MD cha Rivera, Mary mr Lena Ellington, RN RN iw
--- NOTE | 2021-06-16 10:56 | EDPHYS ---
Physician Documentation [facility] Name: Noah Whyte Age: 80 yrs Sex: Male : 1940 Arrival Date: 06/16/2021 Time: 09:20 Bed DIS2 Private MD: ED Physician Wally Chaves HPI: 06/16 10:17 This 80 yrs old Male presents to ER via Ambulatory with complaints of Fall larry Injury, Head Injury-Adult. 10:17 Details of fall: The patient fell from an upright position, while walking. Onset: The larry symptoms/episode began/occurred just prior to arrival. Associated injuries: The patient sustained injury to the head, neck injury. Severity of symptoms: At their worst the symptoms were mild, in the emergency department the symptoms are unchanged. The patient has not experienced similar symptoms in the past. Historical: - Allergies: 09:57 Clarithromycin; iw 09:57 Levofloxacin; iw - Home Meds: :57 levothyroxine 25 mcg tab 1 tab once daily [Active]; amlodipine 2.5 mg tab 1 tab as iw needed for systolic >140 [Active]; famotidine 40 mg Oral tab 1 tab once daily [Active]; lisinopril 40 mg Oral tab 1 tab once daily [Active]; meclizine 25 mg Oral tab 1 tab TID prn [Active]; montelukast 10 mg Oral tab 1 tab once daily [Active]; pantoprazole 40 mg Oral TbEC 1 tab once daily [Active]; patadine Nasal spray twice a day [Active]; rosuvastatin 40 mg Oral tab 1 tab once daily [Active]; - PMHx: 09:57 Bladder Tumor - Cancer; GERD; High Cholesterol; Hypertension; Hypothyroidism; Vertigo; iw - PSHx: 09:57 cataract repair; TURP; iw - Immunization history:: Client reports receiving the 2nd dose of the Covid vaccine. - Social history:: Smoking status: . ROS: 10:18 Constitutional: Negative for fever, chills, and weight loss, Eyes: Negative for injury, larry pain, redness, and discharge, ENT: Negative for injury, pain, and discharge, Neck: Negative for injury, pain, and swelling, Cardiovascular: Negative for chest pain, palpitations, and edema, Respiratory: Negative for shortness of breath, cough, wheezing, and pleuritic chest pain, Abdomen/GI: Negative for abdominal pain, nausea, vomiting, diarrhea, and constipation, Back: Negative for injury and pain, : Negative for injury, bleeding, discharge, and swelling, MS/Extremity: Negative for injury and deformity, Skin: Negative for injury, rash, and discoloration, Psych: Negative for depression, anxiety, suicide ideation, homicidal ideation, and hallucinations, Allergy/Immunology: Negative for hives, rash, and allergies, Endocrine: Negative for neck swelling, polydipsia, polyuria, polyphagia, and marked weight changes, Hematologic/Lymphatic: Negative for swollen nodes, abnormal bleeding, and unusual bruising. 10:18 Neuro: Positive for headache. Exam: 10:18 Constitutional: This is a well developed, well nourished patient who is awake, alert, larry and in no acute distress. Eyes: Pupils equal round and reactive to light, extra-ocular motions intact. Lids and lashes normal. Conjunctiva and sclera are non-icteric and not injected. Cornea within normal limits. Periorbital areas with no swelling, redness, or edema. ENT: Nares patent. No nasal discharge, no septal abnormalities noted. Tympanic membranes are normal and external auditory canals are clear. Oropharynx with no redness, swelling, or masses, exudates, or evidence of obstruction, uvula midline. Mucous membranes moist. Neck: Trachea midline, no thyromegaly or masses palpated, and no cervical lymphadenopathy. Supple, full range of motion without nuchal rigidity, or vertebral point tenderness. No Meningismus. Chest/axilla: Normal chest wall appearance and motion. Nontender with no deformity. No lesions are appreciated. Cardiovascular: Regular rate and rhythm with a normal S1 and S2. No gallops, murmurs, or rubs. Normal PMI, no JVD. No pulse deficits. Respiratory: Lungs have equal breath sounds bilaterally, clear to auscultation and percussion. No rales, rhonchi or wheezes noted. No increased work of breathing, no retractions or nasal flaring. Abdomen/GI: Soft, non-tender, with normal bowel sounds. No distension or tympany. No guarding or rebound. No evidence of tenderness throughout. Back: No spinal tenderness. No costovertebral tenderness. Full range of motion. Male : Normal genitalia with no discharge or lesions. Skin: Warm, dry with normal turgor. Normal color with no rashes, no lesions, and no evidence of cellulitis. MS/ Extremity: Pulses equal, no cyanosis. Neurovascular intact. Full, normal range of motion. Neuro: Awake and alert, GCS 15, oriented to person, place, time, and situation. Cranial nerves II-XII grossly intact. Motor strength 5/5 in all extremities. Sensory grossly intact. Cerebellar exam normal. Normal gait. Psych: Awake, alert, with orientation to person, place and time. Behavior, mood, and affect are within normal limits. 10:18 Head/face: Noted is hematoma, that is mild, of the left side of the back of head, left occipital area, right side of the back of head and right occipital area, swelling. Vital Signs: 09:57 BP 140 / 70; Pulse 74; Resp 16; Temp 98.7; Pulse Ox 97% on R/A; Weight 74.84 kg; Height iw 5 ft. 8 in. (172.72 cm); 09:57 Body Mass Index 25.09 (74.84 kg, 172.72 cm) iw [place] Coma Score: 10:54 Eye Response: spontaneous(4). Verbal Response: oriented(5). Motor Response: obeys [facility] commands(6). Total: 15. MDM: 10:07 Patient medically screened. [facility] 10:54 Differential diagnosis: Contusion of Hematoma on Intracranial bleed- Concussion larry cerebral contusion. Differential diagnosis: closed head injury, contusion, fracture, multiple trauma, sprain. Data reviewed: vital signs, nurses notes, radiologic studies, CT scan. Data interpreted: conveyor monitor: rate is 74 beats/min, rhythm is regular, Pulse oximetry: on room air is 97 %. Counseling: I had a detailed discussion with the patient and/or guardian regarding: the historical points, exam findings, and any diagnostic results supporting the discharge/admit diagnosis, lab results, radiology results, the need for outpatient follow up, for definitive care, a family practitioner. 06/16 10:17 Order name: CT Head C Spine; Complete Time: 10:54 larry 06/16 10:17 Order name: Ice pack larry Administered Medications: 10:53 Drug: Tylenol 1000 mg Route: PO; iw 11:24 Follow up: Response: No adverse reaction iw Disposition Summary: 06/16/21 10:55 Discharge Ordered Location: Home larry Problem: new larry Symptoms: have improved larry Condition: Stable larry Diagnosis - Fall due to bumping against object larry - Unspecified injury of head, initial encounter larry Followup: larry - With: Private Physician - When: 1 - 2 days - Reason: Recheck today's complaints, Continuance of care, Re-evaluation by your physician Discharge Instructions: - Discharge Summary Sheet larry - Head Injury, Adult larry - Fall Prevention in the Home, Adult larry - Fall Prevention in the Home, Adult, [id number] larry - Head Injury, Adult, [id number] larry Forms: - Medication Reconciliation Form larry - Thank You Letter larry - Antibiotic Education larry - Prescription Opioid Use larry Prescriptions: - Tylenol 325 mg Oral Tablet - take 2 tablets by ORAL route every 6 hours as needed; 1 bottle; Refills: 0, larry Product Selection Permitted Signatures: Dispatcher [employer] Wally Terrell MD MD cha Williams, Irene, RN RN iw
[2021-06-16] MEDS ORDERED: ACETAMINOPHEN 500 MG TAB ONE (11:14)
[2021-06-16 11:29] VITALS: BP 140/70; TEMP 98.7; O2SAT 97
== END 2021-06-16 11:25 | disposition home or self-care (01) ==
LOC: ER 09:17
DX: S00.83XA Contusion of other part of head, initial encounter (principal); W19.XXXA Unspecified fall, initial encounter; Y93.01 Activity, walking, marching and hiking; I10 Essential (primary) hypertension; E03.9 Hypothyroidism, unspecified; E78.00 Pure hypercholesterolemia, unspecified; Z88.1 Allergy status to other antibiotic agents; Z88.3 Allergy status to other anti-infective agents
CPT/HCPCS: 70450; 72125; 99283

== ENCOUNTER 2022-03-03 11:02 | Emergency (ER) | payer OTHER ==
--- OUTSIDE RECORDS SUMMARY | 2022-03-03 11:05 | XMS REPORT | Continuity of Care Document ---
:1940 Author Organization [facility] t Address [address] [place] [address] Care Team Providers Name Role Phone Jenn Mccoy Attending Clinician Unavailable REY Attending Clinician Unavailable Rey WORLEY Attending Clinician REY Attending Clinician Unavailable REY Admitting Clinician Unavailable Payers Payer Name Policy Type Policy Number Effective Date Expiration Date [id number] 2020 ADVANTAGE PPO-UHC 00:00:00 [employer] MEDICARE [id number] ADVANTAGE PPO Problems Condition Condition Condition Status Onset Resolution Last Treating Co mments Source Name Details Category Date Date Treatment Clinician Date Encounter Encounter Disease Active [facility] for for 1-22 College follow-up follow-up 00:00: of surveillan surveillan 00 Me dicin ce of ce of e 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 [place] jennifer neoplasm neoplasm 08 Colleg e of of 00:00: of overlappin overlappin 00 Me dicin g sites of g sites of e bladder bladder (HCCode) (HCCode) Allergies, Adverse Reactions, Alerts Allergy Allergy Status Severity Reaction(s) Onset Inactive Treating Comm ents Source Name Type Date Date Clinician Mey Zarate Active 2018-11 [facility] ty to 2-11 College adverse 00:00: of reaction 00 Medicin s to e drug Clarithr Adverse Active diarrhea, [facility] omycin Reaction bad taste, [facility] - dizziness [facility] Levaquin Adverse Active severe leg [facility] Reaction cramps [facility] Social History Social Habit Start Date Stop Date Quantity Comments Source Sex Assigned At [facility] l[facility] of Medicine Tobacco Comment 2019-10-24 2019-10-24 7 [facility] of 00:00:00 00:00:00 Medicine Smoking Status Start Date Stop Date Source Never smoker [facility] f Medicine Medications Ordered Filled Start Stop Current Ordering Indication Dosage Frequency Signature Comments Components Source Medication Medication Date Date Medication? Clinician (SIG) Name Name Accu-Chek Accu-Chek Yes Na Mccoy as [facility] Plus 04-22 directed [facility] 00 [facility] sulfamethox 2018-11 Yes [id number] 1{tbl} Take 1 Tab [facility] azole-trime 2-11 by mouth Nikita ege thoprim 00:00: two times of (BACTRIM 00 daily. Medicin DS) 800-160 e MG per tablet Glucometer Glucometer Yes Na Mccoy one [facility] Levothyroxi Levothyroxi Yes Na Mccoy [address] [facility] ne Sodium ne Sodium on an [facility] - empty [facility] stomach in l the Outpati morning ent Clinics Lancets Lancets Yes Na Mccoy as [facility] directed [facility] Accu-Chek Accu-Chek Yes Na Mccoy as [facility] Softclix Softclix directed Sara es - [facility] Meclizine Meclizine Yes Na Mccoy TAKE [address] [facility] HCl HCl TABLET BY [facility] - MOUTH Memoria THREE l TIMES Outpati DAILY ent Clinics Mobic Mobic Yes Na Mccoy [address] [facility] Euthyrox Euthyrox Yes Na Mccoy TAKE [address] [facility] [address] [facility] TABLET BY [facility] - MOUTH ONCE Memoria DAILY IN l THE Outpati MORNING ON ent AN EMPTY Clinics STOMACH EpiPen EpiPen Yes Na Mccoy not [facility] 2-Gerald 2-Gerald defined [facility] Olopatadine Olopatadine Yes Na Mccoy [address] [facility] HCl HCl in each [facility] - nostril [facility] Meclizine Meclizine Yes Na Mccoy TAKE [address] [facility] HCl HCl TABLET BY [facility] - MOUTH 3 Memoria TIMES A l DAY [facility] Levothyroxi Levothyroxi Yes Na Mccoy [address] [facility] ne Sodium ne Sodium on an Luke s - empty [facility] stomach in l the [facility] morning ent Clinics Cipro Cipro Yes Na Mccoy [address] [facility] Augmentin Augmentin Yes Na Mccoy [address] [facility] Crestor Crestor Yes Na Mccoy [address] [facility] Pantoprazol Pantoprazol Yes Na Mccoy [address] [facility] e Sodium e Sodium [facility] blood blood Yes Na Mccoy as [facility] glucose glucose directed [facility] - test strip test strip [facility] Singulair Singulair Yes Na Mccoy [address] [facility] Lisinopril Lisinopril Yes Na Mccoy [address] [facility] Immunizations Ordered Filled Immunization Date Status Comments Sour e Immunization Name Name FluAD FluAD 2019-07-[address] [facility] Vital Signs Vital Name Observation Time Observation Value Comments Source Systolic blood 2019-11-21 21:50:00 136 mm[Hg] [facility] pressure Medicine Diastolic blood 2019-11-21 21:50:00 76 mm[Hg] [facility] Medicine Heart rate 2019-11-21 21:50:00 51 /min [facility] Body height 2019-11-21 21:50:00 172.7 cm [facility] Body weight 2019-11-21 21:50:00 72.576 kg [facility] BMI 2019-11-21 21:50:00 24.33 kg/m2 [facility] Systolic blood 2019-11-21 21:50:00 136 mm[Hg] [facility] Medicine Diastolic blood 2019-11-21 21:50:00 76 mm[Hg] [facility] Medicine Heart rate 2019-11-21 21:50:00 51 /min [facility] 2019-11-21 21:50:00 172.7 cm [facility] Body weight 2019-11-21 21:50:00 72.576 [facility] BMI 2019-11-21 21:50:00 24.33 kg/m2 [facility] Procedures Procedure Date / Time Performed Performing Clinician Sour e CULTURE, 2019-11-22 14:56:00 Leah Lezama [facility] Nikita ege of URINE/SENSITIVITY ON Medicine ALL Plan of Care Planned Activity Planned Date Details Comments Source Future Scheduled Test TETANUS SHOT (ADULT) [facility] [code = TETANUS SHOT Medicin e (ADULT)] Future Scheduled Test FALL SCREEN [code = [facility] FALL SCREEN] Medicine Future Scheduled Test PNEUMOVAX >=65 [facility] (PPSV23) [code = Medicine PNEUMOVAX >=65 (PPSV23)] Future Scheduled Test PREVNAR >= 65 (PCV13) [facility] [code = PREVNAR >= 65 Medici ne (PCV13)] Future Scheduled Test MEDICARE AWV [facility] (Initial) [code = Medicine MEDICARE AWV (Initial)] Future Scheduled Test FLU VACCINE > 6 [facility] MONTHS [code = FLU Medicine VACCINE > 6 MONTHS] Encounters Start End Encounter Admission Attending Care Care Encounter Source Date/Time Date/Time Type Type Clinicians Facility Department ID 2022-03-02 [facility] [id number] [facility] 16:19:00 [id number] [facility] 2022-02-08 [facility] [id number] [facility] [address] 08:34:01 [id number] [facility] 2021-12-10 [facility] [id number] [facility] [address] 15[facility]36[facility]00 [facility] 2021-12-09 [facility] [id number] [facility] 14:24:20 [id number] [facility] 2021-12-09 Outpatient Kori Mccoy [facility] [id number] [facility] 14:15:28 [id number] [facility] 2021-12-09 Outpatient Mccoy, Na [facility] [id number] [facility] 13:14:42 [id number] [facility] 2021-12-09 Outpatient Mccoy, Na [facility] [id number] [facility] [address] 13:05:10 [id number] [facility] 2021-12-09 Outpatient Mccoy, Na [facility]C [facility] [id number] [facility] [address] 12:49:56 [id number] [facility] 2021-12-09 Outpatient Mccoy, Na [facility]LMLC [facility] [id number] [facility] [address] 12:36:00 [id number] [facility] 2021-12-09 Outpatient Mccoy, Na [facility]MLC [facility] [id number] [facility] [address] 12:33:13 [id number] [facility] 2021-12-09 Outpatient Mccoy, Na [facility]LMLC [facility] [id number] [facility] 12:32:16 [id number] [facility] 2021-12-09 Outpatient Mccoy, Na [facility] [id number] [facility] [address] 12:11:40 [id number] [facility] 2021-12-09 Outpatient Mccoy, Na [facility]LMLC [facility] [id number] [facility] 12:07:56 [id number] [facility] 2021-12-09 Outpatient Mccoy, Na [facility]LMLC [facility] [id number] [facility] [address] 11:43:48 [id number] [facility] 2021-12-09 Outpatient Mccoy, Na [facility]LMLC [facility] [id number] [facility] [address] 11:39:42 [id number] [facility] 2022-02-10 2022-02-10 ambulatory [facility] [id number] [facility] 2022-02-10 2022-02-10 ambulatory [facility] [id number] [facility] 2022-01-27 2022-01-27 Outpatient [facility] [id number] [facility] 08:30:50 11:41:46 Colleg e of Medicin e 2022-01-27 2022-01-27 Outpatient LEZAMADONI MARI [facility] [id number] [facility] 08:31:18 10:42:49 LEAH Nikita ege of Medicin e 2022-01-14 2022-01-14 ambulatory [facility] [id number] [facility] 2021-10-29 2021-10-29 ambulatory [facility] [id number] [facility] 2021-10-21 2021-10-21 [id number] 09:21:49 10:40:52 LEAH Nikita ege of Medicin e 2021-10-21 2021-10-21 ambulatory [facility] [id number] [facility] 2021-10-02 2021-10-02 ambulatory [facility] [id number] [facility] 2021-10-01 2021-10-01 ambulatory [facility] [id number] [facility] 2021-08-19 2021-08-19 Outpatient [facility] [id number] [facility] 2021-07-30 2021-07-30 Outpatient [facility] [id number] [facility] 2021-07-13 2021-07-13 Outpatient [facility] [id number] [facility] 2021-07-08 2021-07-08 Outpatient DONI LEZAMA [facility] [id number] [facility] 10:18:53 11:40:29 LEAH Nikita ege of Medicin e 2021-07-06 2021-07-06 Outpatient [facility] [id number] [facility] 2021-07-01 2021-07-01 Outpatient [facility] [id number] [facility] 2021-06-01 2021-06-01 Outpatient [facility] [id number] [facility] 2021-04-29 2021-04-29 Outpatient [facility] [id number] [facility] 2021-03-10 2021-03-10 Outpatient [facility] [id number] [facility] 2021-03-05 2021-03-05 Outpatient [facility] [id number] [facility] 2021-02-17 2021-02-17 Outpatient [facility] [id number] [facility] 2021-02-16 2021-02-16 Outpatient [facility] [id number] [facility] 2021-02-12 2021-02-12 Outpatient [facility] [id number] [facility] 2021-02-11 2021-02-11 Outpatient [facility] [id number] [facility] 2021-01-21 2021-01-21 Outpatient [facility] [id number] [facility] 2021-01-02 2021-01-02 Outpatient [facility] [id number] [facility] 2020-10-24 2020-10-24 Outpatient [facility] [id number] [facility] 2020-10-07 2020-10-07 Outpatient [facility] [id number] [facility] 2020-10-07 2020-10-07 Outpatient [facility] [id number] [facility] 2020-10-07 2020-10-07 Outpatient [facility] [id number] [facility] 2020-08-27 2020-08-27 Outpatient [facility] [id number] [facility] 2020-07-23 2020-07-23 [facility] [id number] [facility] 08:40:00 08:40:00 t King [employer] s - Drive [facility] l Medicine Outpati ent Clinics 2020-07-22 2020-07-22 [facility] [id number] [facility] 17:01:00 17:01:00 t King [employer] [place] s - Drive [facility] l Medicine Outpati ent Clinics 2020-07-07 2020-07-07 [facility] [id number] [facility] 16:22:00 16:22:00 t [place] [employer] s - Drive [facility] l Medicine Outpati ent Clinics 2020-07-04 2020-07-04 [facility] [id number] [facility] 11:20:00 11:20:[address] [place] - Drive [facility] Medicine Outpati ent Clinics 2020-07-04 2020-07-04 [facility] [id number] [facility] [facility] 08:10:00 08:10:00 t [place] [employer] s - Drive [facility] Medicine Outpati ent Clinics 2020-04-22 2020-04-22 [facility] [id number] [facility] 13:20:00 13:20:00 t King [employer] s - Drive [facility] Medicine Outpati ent Clinics 2019-11-21 2019-11-21 Office Lezama, [facility] [id number] [facility] 14:51:13 16:43:49 Visit Leah AMBULATOR [id number] College Y [id number] of [id number] [facility] 300 e 2019-11-21 2019-11-21 Office Lezama, [facility] [id number] 14:51:13 16:43:49 Visit Leah AMBULATOR [id number] Y [id number] 2019-10-23 2019-10-23 [facility] [id number] [facility] 13:20:00 13:20:00 t King [employer] - [facility] Medicine Outpati ent Clinics 2019-08-02 2019-08-02 [facility] [id number] [facility] 10:02:00 10:02:00 t King [employer] s - Drive [facility] Medicine Outpati ent Clinics 2019-07-25 2019-07-25 [facility] [id number] 09:40:00 09:40:00 t King [employer] s - Drive [facility] Medicine Outpati ent Clinics 2019-05-22 2019-05-22 [facility] [id number] 09:20:00 09:20:00 t King [employer] s - Drive [facility] Medicine Outpati ent Clinics 2019-04-24 2019-04-24 [facility] [id number] [facility] 09:40:00 09:40:00 t King [employer] [facility] Medicine Outpati ent Clinics 2019-02-01 2019-02-01 [facility] [id number] 09:30:00 09:30:00 t [employer] [facility] Medicine Outpati ent Clinics 2019-01-16 2019-01-16 [facility] [id number] 09:25:00 09:25:00 t [employer] [facility] Medicine Outpati ent Clinics 2018-12-18 2018-12-18 [facility] [id number] [facility] 13:34:00 13:34:00 t [employer] [facility] Medicine Outpati ent Clinics 2018-12-18 2018-12-18 [facility] [id number] [facility] 09:00:00 09:00:00 t [employer] [facility] Medicine Outpati ent Clinics 2018-12-15 2018-12-15 [facility] [id number] 10:47:00 10:47:00 t [employer] [facility] Medicine Outpati ent Clinics 2018-10-24 2018-10-24 [facility] [id number] [facility] 08:30:00 08:30:00 t [employer] [facility] Medicine Outpati ent Clinics Results Test Description Test Time Test Comments Results Result Comments Source CULTURE, URINE/SENSITIVITY ON ALL 2019-11-24 12:08:02 Test Item Value Reference Range Interpretation Comme nts CULTURE, URINE/SENSITIVITY ON SPECIMEN NUMBER: CULTURE, URINE/SENSITIVITY ALL (test code = 2236) [id number] ON AL L SPECIMEN NUMBER : [id number] SPECIMEN COMMEN T: URINE SOURCE: URINE R EPORT STATUS: FINAL FINAL REPORT: 11/24/2019 NO G ROWTH AFTER 36 HOURS INCUBATIO N Unless Otherwis e Indicated, All Testing Per formed At: [facility], [address] [place], [place] [address] 4 Laboratory Dire ctor: Wang Lacy M.D. CLIA Number [id number] Cap Accreditation N o. [id number] [facility] [id number] 17:32:00Surgical Pathology Report Case: [id number] Authorizing Provider: Leah Lezama MD Collected: 10/30/2019 1037 Ordering Location: [facility] PERIOPER[facility]IVE Received: 10/31/2019 0846 SERVICES Pathologist: [...] BY TUMOR Signing Pathologist Direct Phone Line: [phone] signed by Yan Hays MDon 11/02/2019 at 5:32 PMThe invasive component represents no more than 5% of the total tumor mass.[id number] X 2Preoperative and postoperative diagnoses: bladder tumorA. Urinary bladder, TUR tissue. B. Urinary bladder, TUR tissue A. Received in formalin labeled with the patient's name, accession number and "urinary bladder, TUR tissue, right lateral wall tumor" is a _5 x 6.7 x 1.6 cm aggregate of irregular ware-brown to ware-pink pieces of tissue admixed with blood clot. The specimen is representativelysubmitted in cassettes A1-A15. B. Received in formalin labeled with the patient's name, accession number and "urinary bladder, TUR tissue, right lateral wall tumor-base of tumor" is a 2.5 x 1.5 x 0.4 cm aggregate of irregular ware-red to ware-pink rubbery tissue fragments admixed with blood clot. The specimen entirely submitted in cassettes B1-AB. JG/ewPerformed.POCT-GLUCOSE [id number] 06:24:00 Test Item Value Reference Range Interpretation Comments POC-GLUCOSE METER 76 mg/dL 70-110 : TESTED A T [facility] 6720 (BEAKER) (test code = LARRY COLES ME, 1538) 25899: [employer] Liaison Officer/Techni jordana ID = [id number] for SEBASTIAN VALLE PH
[2022-03-03 12:57] LABS: SARS-COV-2 RT PCR NEGATIVE (NEGATIVE)
[2022-03-03 13:17] LABS: Absolute Lymphocytes (CBC) 0.8 K/uL (0.7-4.9); Hematocrit 35.5 % (39.6-49.0); Lymphocytes % 10.5 % (15.3-44.8); MPV 8.1 fL (7.6-11.3)
[2022-03-03] MEDS ORDERED: ONDANSETRON 4 MG/2 ML VIAL ONE (13:17)
[2022-03-03 13:34] LABS: Albumin 3.7 g/dL (3.4-5.0); Bilirubin Total 1.5 mg/dL (0.2-1.0); Potassium 4.5 mmol/L (3.5-5.1); Protein, Total 7.2 g/dL (6.4-8.2)
--- NOTE | 2022-03-03 14:26 | RAD REPORT ---
EXAM DESCRIPTION: CT - Abdomen Pelvis W Contrast - 03/03/2022 2:06 pm CLINICAL HISTORY: Abdominal pain COMPARISON: 2020 TECHNIQUE: Computed axial tomography of the abdomen pelvis was obtained. 100 cc Isovue-300 was admin istered intravenously. Oral contrast was not requested which limits evaluation of bowel. All CT scans are performed using dose optimization technique as appropriate and may include automated exposure control or mA/KV adjustment according to patient size. FINDINGS: Small hepatic cysts. Spleen, pancreas, adrenal and kidneys appear unremarkable. Normal appendix Moderate inguinal hernias containing fat. Diverticula stem from the colon. Moderate stranding adjacent to the sigmoid colon. Small amount of as cites. No abscess. No free air No bladder mass seen IMPRESSION: Moderate sigmoid diverticulitis
[2022-03-03 14:48] LABS: Urine Blood Negative (Negative); Urine Glucose Negative (Negative); Urine Protein Negative (Negative)
[2022-03-03 15:04] LABS: Urine Bacteria NONE SEEN /HPF (NONE SEEN); Urine RBC <5 /HPF (NONE SEEN)
[2022-03-03] MEDS ORDERED: METRONIDAZOLE 500mg IVPB 500 MG/100 ML BAG IV ONE (15:39)
[2022-03-03] MEDS ORDERED: NA CHLORIDE 0.9% 100 ML IV ONE (15:39)
[2022-03-03] MEDS ORDERED: CEFTRIAXONE 2000 MG/VIAL ONE (15:39)
--- NOTE | 2022-03-03 15:40 | ER ---
Nurse's Notes [facility] Name: Noah Whyte Age: 81 yrs Sex: Male : 1940 Arrival Date: 03/03/2022 Time: 11:04 Bed 9 Private MD: Diagnosis: Diverticulitis of large intestine without perforation or abscess without bleeding Presentation: 03/03 11:37 Chief complaint: Patient states: Last night took temperature and was 101.8 and BP was vg1 160's systolic; states took amlodipine and it brought BP to 150's systolic; states this morning temperature was 100.6 and is having 'ABD discomfort' and some nausea. States would like to get a covid test to see where the fever is coming from. Coronavirus screen: Vaccine status: Client denies travel out of the [place] in the last 14 days. Ebola Screen: Patient negative for fever greater than or equal to 101.5 degrees Fahrenheit, and additional compatible Ebola Virus Disease symptoms. Initial Sepsis Screen: Does the patient meet any 2 criteria? No. Patient's initial sepsis screen is negative. Does the patient have a suspected source of infection? No. Patient's initial sepsis screen is negative. Risk Assessment: Do you want to hurt yourself or someone else? Patient reports no desire to harm self or others. Onset of symptoms was March 02, 2022. 11:37 Method Of Arrival: Ambulatory vg1 11:37 Acuity: JAIMIE 4 vg1 13:06 Acuity: JAIMIE 3 iw Triage Assessment: 11:40 General: Appears in no apparent distress. comfortable, Behavior is calm, cooperative. vg1 Pain: Complains of pain in abdomen Pain currently is 2 out of 10 on a pain scale. Historical: - Allergies: 11:40 Levofloxacin; vg1 11:40 Clarithromycin; vg1 - Home Meds: 11:40 lisinopril 40 mg Oral tab 1 tab once daily [Active]; amlodipine 2.5 mg tab 1 tab as vg1 needed for systolic >140 [Active]; rosuvastatin 40 mg Oral tab 1 tab once daily [Active]; montelukast 10 mg Oral tab 1 tab once daily [Active]; tamsulosin 0.4 mg Oral cap 1 cap once daily [Active]; - PMHx: 11:40 Bladder Tumor - Cancer; GERD; High Cholesterol; Hypertension; Hypothyroidism; Vertigo; vg1 - PSHx: 11:40 cataract repair; TURP; vg1 - Immunization history:: Client reports receiving the 2nd dose of the Covid vaccine. - Social history:: Smoking status: Patient denies any tobacco usage or history of. Screenin:52 Abuse screen: Denies threats or abuse. Denies injuries from another. Nutritional ab2 screening: No deficits noted. Tuberculosis screening: No symptoms or risk factors identified. Fall Risk None identified. Assessment: 12:50 General: Appears in no apparent distress. comfortable, Behavior is calm, cooperative, ab2 appropriate for age. Pain: Complains of pain in abdomen. Neuro: Level of Consciousness is awake, alert, obeys commands, Oriented to person, place, time, situation, Appropriate for age Pacu Rn are equal bilaterally Moves all extremities. Gait is steady, Speech is normal, Facial symmetry appears normal. Cardiovascular: No deficits noted. Denies chest pain, shortness of breath, Heart tones S1 S2 present Patient's skin is warm and dry. Respiratory: Airway is patent Respiratory effort is even, unlabored, Respiratory pattern is regular, symmetrical. GI: No deficits noted. No signs and/or symptoms were reported involving the gastrointestinal system. Abdomen is round non-distended, Bowel sounds present X 4 quads. : No deficits noted. No signs and/or symptoms were reported regarding the genitourinary system. EENT: No deficits noted. No signs and/or symptoms were reported regarding the EENT system. Derm: Skin is intact, is healthy with good turgor, Skin is pink, warm \T\ dry. 15:20 Reassessment: Patient appears in no apparent distress at this time. No changes from ab2 previously documented assessment. Vital Signs: 11:37 BP 126 / 67; Pulse 70; Resp 16; Temp 98.5(O); Pulse Ox 100% on R/A; Weight 73.48 kg; vg1 Height 5 ft. 8 in. (172.72 cm); Pain 2/10; 13:32 BP 118 / 74; Pulse 73; Resp 17; Pulse Ox 100% on R/A; ab2 15:18 BP 136 / 67; Pulse 62; Resp 16; Pulse Ox 98% on R/A; ab2 16:47 BP 127 / 73; Pulse 64; Resp 17; Pulse Ox 99% on R/A; ab2 11:37 Body Mass Index 24.63 (73.48 kg, 172.72 cm) vg1 ED Course: 11:04 Patient arrived in ED. as 11:40 Triage completed. vg1 11:40 Arm band placed on. vg1 11:47 COVID swab sent to lab. Flu and/or RSV swab sent to lab. vg1 12:17 Wally Goel PA is PHCP. cp 12:17 Wally Chaves MD is Attending Physician. cp 12:50 Chandler Butler is Primary Nurse. ab2 12:52 Patient has correct armband on for positive identification. Bed in low position. Call ab2 light in reach. Side rails up X2. 12:52 No provider procedures requiring assistance completed. ab2 13:12 CBC with Diff Sent. ab2 13:12 CMP Sent. ab2 13:12 Lipase Sent. ab2 13:12 Urine Microscopic Only Sent. ab2 14:08 Abdomen In Process Unspecified. EDMS 16:47 IV discontinued, intact, bleeding controlled, No redness/swelling at site. Pressure ab2 dressing applied. Administered Medications: 13:18 Drug: Zofran (Ondansetron) 4 mg Route: IVP; Site: right antecubital; ab2 15:56 Follow up: Response: No adverse reaction ab2 15:39 Drug: metroNIDAZOLE 500 mg Volume: 100 ml; Route: IVPB; Infused Over: 30 mins; Site: ab2 right antecubital; 15:56 Follow up: Response: No adverse reaction; IV Status: Completed infusion ab2 15:56 Drug: Rocephin - (cefTRIAXone) 2 grams Route: IVPB; Infused Over: 30 mins; Site: right ab2 antecubital; 16:47 Follow up: Response: No adverse reaction; IV Status: Completed infusion ab2 Outcome: 15:39 Discharge ordered by MD. cp 16:47 Discharged to home ambulatory. ab2 16:47 Condition: good 16:47 Discharge instructions given to patient, family, Instructed on discharge instructions, follow up and referral plans. medication usage, Demonstrated understanding of instructions, follow-up care, medications, Prescriptions given X 4. 16:48 Patient left the ED. ab2 Signatures: Dispatcher [employer] EDMS Irma Muse as Lena Ellington RN RN iw PageWally PA PA cp Garcia, Victoria, RN RN vg1 Chandler Butler ab2 Corrections: (The following items were deleted from the chart) : 11:37 Acuity: JAIMIE 3 vg1 vg1
--- NOTE | 2022-03-03 15:40 | EDPHYS ---
Physician Documentation [facility] Name: Noah Whyte Age: 81 yrs Sex: Male : 1940 Arrival Date: 03/03/2022 Time: 11:04 Bed 9 Private MD: ED Physician Wally Chaves HPI: 03/03 12:53 This 81 yrs old Male presents to ER via Ambulatory with complaints of Fever. cp 12:53 The patient reports fever, that was measured at 101.8 degrees Fahrenheit. Onset: The cp symptoms/episode began/occurred last night. Associated signs and symptoms: Pertinent positives: abdominal pain, Pertinent negatives: altered mental status, backache, cough, diarrhea, headache, sore throat, vomiting. 12:53 Severity of symptoms: in the emergency department the symptoms have improved mildly. cp Historical: - Allergies: 11:40 Levofloxacin; vg1 11:40 Clarithromycin; vg1 - Home Meds: 11:40 lisinopril 40 mg Oral tab 1 tab once daily [Active]; amlodipine 2.5 mg tab 1 tab as vg1 needed for systolic >140 [Active]; rosuvastatin 40 mg Oral tab 1 tab once daily [Active]; montelukast 10 mg Oral tab 1 tab once daily [Active]; tamsulosin 0.4 mg Oral cap 1 cap once daily [Active]; - PMHx: 11:40 Bladder Tumor - Cancer; GERD; High Cholesterol; Hypertension; Hypothyroidism; Vertigo; vg1 - PSHx: 11:40 cataract repair; TURP; vg1 - Immunization history:: Client reports receiving the 2nd dose of the Covid vaccine. - Social history:: Smoking status: Patient denies any tobacco usage or history of. ROS: 12:55 Constitutional: Negative for fever, poor PO intake. cp 12:55 Eyes: Negative for injury, pain, redness, and discharge. cp 12:55 ENT: Negative for drainage from ear(s), ear pain, sore throat, difficulty swallowing, difficulty handling secretions. 12:55 Cardiovascular: Negative for chest pain, edema, palpitations. 12:55 Respiratory: Negative for cough, shortness of breath, wheezing. 12:55 Abdomen/GI: Positive for abdominal pain, Negative for vomiting, diarrhea, constipation, anorexia, black/tarry stool, rectal bleeding. 12:55 Back: Negative for radiated pain. 12:55 Neuro: Negative for altered mental status, dizziness, headache, weakness. 12:55 All other systems are negative. Exam: 13:00 Constitutional: The patient appears in no acute distress, alert, awake, cp non-diaphoretic, non-toxic, well developed, well nourished. 13:00 Head/Face: Normocephalic, atraumatic. cp 13:00 Eyes: Periorbital structures: appear normal, Conjunctiva: normal, no exudate, no injection, Sclera: no appreciated abnormality, Lids and lashes: appear normal, bilaterally. 13:00 ENT: External ear(s): are unremarkable, Nose: is normal, Mouth: Lips: moist, Oral mucosa: pink and intact, moist, Posterior pharynx: Airway: no evidence of obstruction, patent. 13:00 Neck: ROM/movement: is normal, is supple, without pain, no range of motions limitations. 13:00 Chest/axilla: Inspection: normal, Palpation: is normal, no crepitus, no tenderness. 13:00 Cardiovascular: Rate: normal, Rhythm: regular. 13:00 Respiratory: the patient does not display signs of respiratory distress, Respirations: normal, no use of accessory muscles, no retractions, labored breathing, is not present, Breath sounds: are clear throughout, no decreased breath sounds, no stridor, no wheezing. 13:00 Abdomen/GI: Inspection: abdomen appears normal, Bowel sounds: active, all quadrants, Palpation: soft, in all quadrants, mild abdominal tenderness, in the mid abdomen, rebound tenderness, is not appreciated, voluntary guarding, is not appreciated, involuntary guarding, is not appreciated. 13:00 Back: CVA tenderness, is absent. 13:00 Skin: cellulitis, is not appreciated, no rash present. 13:00 Neuro: Orientation: to person, place \\T\\ time. Mentation: is normal, Motor: moves all fours, strength is normal, Sensation: is normal. Vital Signs: 11:37 BP 126 / 67; Pulse 70; Resp 16; Temp 98.5(O); Pulse Ox 100% on R/A; Weight 73.48 kg; vg1 Height 5 ft. 8 in. (172.72 cm); Pain 2/10; 13:32 BP 118 / 74; Pulse 73; Resp 17; Pulse Ox 100% on R/A; ab2 15:18 BP 136 / 67; Pulse 62; Resp 16; Pulse Ox 98% on R/A; ab2 16:47 BP 127 / 73; Pulse 64; Resp 17; Pulse Ox 99% on R/A; ab2 11:37 Body Mass Index 24.63 (73.48 kg, 172.72 cm) vg1 MDM: 12:48 Patient medically screened. cp 15:36 Data reviewed: vital signs, nurses notes, lab test result(s), radiologic studies, CT cp scan. Counseling: I had a detailed discussion with the patient and/or guardian regarding: the historical points, exam findings, and any diagnostic results supporting the discharge/admit diagnosis, lab results, radiology results. ED course: Discussed results of labs and CT abdomen showing moderate diverticulitis. Patient declines admission at this time for continued IV antibiotics and requests oral antibiotics. Will monitor symptoms and return if symptoms worsen. 03/03 11:42 Order name: COVID-19/FLU A+B (Document "Date of Onset" if Symptomatic); Complete Time: vg1 13:41 03/03 12:55 Order name: CBC with Diff; Complete Time: 13:41 cp 03/03 13:42 Interpretation: Normal except: RBC 3.90; HGB 11.9; HCT 35.5; ALINA% 79.7; LYM% 10.5. cp 03/03 12:55 Order name: CMP; Complete Time: 13:41 cp 03/03 13:42 Interpretation: Normal except: NA 133; GLUC 161; GFR 73; BILIT 1.5. cp 03/03 12:55 Order name: Lipase; Complete Time: 13:41 cp 03/03 12:55 Order name: Urine Microscopic Only; Complete Time: 15:16 cp 03/03 14:48 Order name: Urine Dipstick-Ancillary; Complete Time: 15:16 EDMS 03/03 12:55 Order name: CT Abd/Pelvis - IV Contrast Only cp 03/03 12:55 Order name: IV Saline Lock; Complete Time: 13:12 cp 03/03 12:55 Order name: Labs collected and sent; Complete Time: 13:12 cp 03/03 12:59 Order name: Abdomen ; Complete Time: 15:16 EDMS 03/03 15:17 Interpretation: Report reviewed. cp 03/03 12:55 Order name: Urine Dipstick-Ancillary (obtain specimen); Complete Time: 14:48 cp Administered Medications: 13:18 Drug: Zofran (Ondansetron) 4 mg Route: IVP; Site: right antecubital; ab2 15:56 Follow up: Response: No adverse reaction ab2 15:39 Drug: metroNIDAZOLE 500 mg Volume: 100 ml; Route: IVPB; Infused Over: 30 mins; Site: ab2 right antecubital; 15:56 Follow up: Response: No adverse reaction; IV Status: Completed infusion ab2 15:56 Drug: Rocephin - (cefTRIAXone) 2 grams Route: IVPB; Infused Over: 30 mins; Site: right ab2 antecubital; 16:47 Follow up: Response: No adverse reaction; IV Status: Completed infusion ab2 Disposition Summary: 03/03/22 15:39 Discharge Ordered Location: Home cp Problem: new cp Symptoms: have improved cp Condition: Stable cp Diagnosis - Diverticulitis of large intestine without perforation or abscess without bleeding cp Followup: cp - With: Private Physician - When: 1 - 2 days - Reason: Recheck today's complaints Discharge Instructions: - Discharge Summary Sheet cp - High-Fiber Diet cp - Diverticulitis cp Forms: - Medication Reconciliation Form cp - Thank You Letter cp - Antibiotic Education cp - Prescription Opioid Use cp Prescriptions: - Augmentin 875-125 mg Oral Tablet - take 1 tablet by ORAL route every 12 hours for 10 days; 20 tablet; Refills: 0, cp Product Selection Permitted - Zofran 4 mg Oral Tablet - take 1 tablet by ORAL route every 12 hours As needed; 20 tablet; Refills: 0, cp Product Selection Permitted - Metronidazole 500 mg Oral Tablet - take 1 tablet by ORAL route every 8 hours; 30 tablet; Refills: 0, Product cp Selection Permitted - dicyclomine 20 mg Oral Tablet - take 1 tablet by ORAL route 3 times per day; 20 tablet; Refills: 0, Product cp Selection Permitted Addendum: 03/05/2022 07:48 Co-signature as Attending Physician, Wally Chaves MD I agree with the assessment and c vu plan of care. Signatures: Dispatcher [employer] Wally Terrell MD MD cha Page, Corey PA PA Catalina Briggs RN RN vg1 Chandler Butler2 Corrections: (The following items were deleted from the chart) 03/04 12:53 Associated signs and symptoms: Pertinent positives: abdominal pain, cp cp 03/04 01 00:59 Severity of symptoms: in the emergency department the symptoms have improved cp mildly, cp
[2022-03-03 23:53] VITALS: TEMP 98.5
[2022-03-03 23:58] VITALS: BP 127/73; O2SAT 99
== END 2022-03-03 16:48 | disposition home or self-care (01) ==
LOC: ER 11:02
DX: K57.32 Diverticulitis of large intestine without perforation or abscess without bleeding (principal); I10 Essential (primary) hypertension; E78.00 Pure hypercholesterolemia, unspecified; E03.9 Hypothyroidism, unspecified; Z20.822 Contact with and (suspected) exposure to COVID-19; Z85.51 Personal history of malignant neoplasm of bladder; Z88.3 Allergy status to other anti-infective agents
CPT/HCPCS: 96365; 96367; 85025; 36415; 83690; 80053; 0240U; 74177; 96375; 99284; Q9967; J2405; J0696; 81003; 81015

== ENCOUNTER 2022-03-08 08:27 | Emergency (ER) | payer OTHER ==
--- OUTSIDE RECORDS SUMMARY | 2022-03-08 08:30 | XMS REPORT | Continuity of Care Document ---
:1940 Author Organization [facility] t Address [address] [place] [address] Care Team Providers Name Role Phone Jenn Mccoy Attending Clinician Unavailable REY Attending Clinician Unavailable Rey WORLEY Attending Clinician REY Attending Clinician Unavailable REY Admitting Clinician Unavailable Payers Payer Name Policy Type Policy Number Effective Date Expiration Date S [facility] MED[facility]ARE [id number] 2020 ADVANTAGE PPO-UHC 00:00:00 [employer] MEDICARE [id number] ADVANTAGE PPO Problems Condition Condition Condition Status Onset Resolution Last Treating Co mments Source Name Details Category Date Date Treatment Clinician Date Encounter Encounter Disease Active [facility] for for 1-22 College follow-up follow-up 00:00: of surveillan surveillan 00 Me dicin ce of ce of e 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 [place] [facility]ifer neoplasm neoplasm 08 Colleg e of of 00:00: of overlappin overlappin 00 Me dicin g sites of g sites of e bladder bladder (HCCode) (HCCode) Allergies, Adverse Reactions, Alerts Allergy Allergy Status Severity Reaction(s) Onset Inactive Treating Comm ents Source Name Type Date Date Clinician Mey Zarate Active 2018-11 [facility] ty to 2-11 College adverse 00:00: of reaction 00 Medicin s to e drug Clarithr Adverse Active diarrhea, [facility] omycin Reaction bad taste, [facility] - dizziness [facility] Levaquin Adverse Active severe leg [facility] Reaction cramps [facility] Social History Social Habit Start Date Stop Date Quantity Comments Source Sex Assigned At [facility] llege of Medicine Tobacco Comment 2019-10-24 2019-10-24 7 [facility] llege of 00:00:00 00:00:00 Medicine Smoking Status Start Date Stop Date Source Never smoker [facility] o f Medicine Medications Ordered Filled Start Stop Current Ordering Indication Dosage Frequency Signature Comments Components Source Medication Medication Date Date Medication? Clinician (SIG) Name Name Accu-Chek Accu-Chek Yes Na Mccoy as [facility] Plus [facility] Plus 04-22 directed [facility] 00[facility] sulfamethox 2018-11 Yes [id number] 1{tbl} Take 1 Tab [facility] azole-trime 2-11 by mouth Nikita ege thoprim 00:00: two times of (BACTRIM 00 daily. Medicin DS) 800-160 e MG per tablet Glucometer Glucometer Yes Na Mccoy one [facility] Levothyroxi Levothyroxi Yes Na Mccoy [address] [facility] ne Sodium ne Sodium on an Luke s - empty Memoria stomach in l the Outpati morning ent Clinics Lancets Lancets Yes Na Mccoy as [facility] directed [facility] Accu-Chek Accu-Chek Yes Na Mccoy as [facility] Softclix Softclix directed Sara es - [facility] Meclizine Meclizine Yes Na Mccoy TAKE [address] [facility] HCl HCl TABLET BY [facility] - MOUTH Memoria THREE l TIMES Outpati DAILY ent Clinics Mobic Mobic Yes Na Mccoy [address] [facility] Euthyrox Euthyrox Yes Na Mccoy TAKE [address] TABLET BY [facility] - MOUTH ONCE Memoria DAILY IN l THE Outpati MORNING ON ent AN EMPTY Clinics STOMACH EpiPen EpiPen Yes Na Mccoy not [facility] 2-Gerald 2-Gerald defined [facility] Olopatadine Olopatadine Yes Na Mccoy [address] [facility] HCl HCl in each [facility] - nostril [facility] Meclizine Meclizine Yes Na Mccoy TAKE [address] [facility] HCl HCl TABLET BY [facility] - MOUTH 3 Memoria TIMES A l DAY [facility] Levothyroxi Levothyroxi Yes Na Mccoy [address] [facility] ne Sodium ne Sodium on an Luke s - empty Memoria stomach in l the [facility] morning ent Clinics Cipro Cipro Yes Na Mccoy [address] [facility] Augmentin Augmentin Yes Na Mccoy [address] [facility] Crestor Crestor Yes Na Mccoy [address] [facility] Pantoprazol Pantoprazol Yes Na Mccoy [address] [facility] e Sodium e Sodium [facility] blood blood Yes Na Mccoy as [facility] glucose glucose directed [facility] - test strip test strip [facility] Singulair Singulair Yes Na Mccoy [address] [facility] Lisinopril Lisinopril Yes Na Mccoy [address] [facility] Immunizations Ordered Filled Immunization Date Status Comments Sour e Immunization Name Name FluAD FluAD 2019-07-[address] [facility] Vital Signs Vital Name Observation Time Observation Value Comments Source Systolic blood 2019-11-21 21:50:00 136 mm[Hg] [facility] pressure Medicine Diastolic blood 2019-11-21 21:50:00 76 mm[Hg] [facility] Medicine Heart rate 2019-11-21 21:50:00 51 /min [facility] Body height 2019-11-21 21:50:00 172.7 cm [facility] Body weight 2019-11-21 21:50:00 72.576 kg [facility] BMI 2019-11-21 21:50:00 24.33 kg/m2 [facility] Systolic blood 2019-11-21 21:50:00 136 mm[Hg] [facility] Medicine Diastolic blood 2019-11-21 21:50:00 76 mm[Hg] [facility] Medicine Heart rate 2019-11-21 21:50:00 51 /min [facility] height 2019-11-21 21:50:00 172.7 cm [facility] Body weight 2019-11-21 21:50:00 72.576 kg [facility] BMI 2019-11-21 21:50:00 24.33 kg/m2 [facility] Procedures Procedure Date / Time Performed Performing Clinician Sour e CULTURE, 2019-11-22 14:56:00 Leah Lezama [facility] Nikita ege of URINE/SENSITIVITY ON Medicine ALL Plan of Care Planned Activity Planned Date Details Comments Source Future Scheduled Test TETANUS SHOT (ADULT) [facility] [code = TETANUS SHOT Medicin e (ADULT)] Future Scheduled Test FALL SCREEN [code = [facility] FALL SCREEN] Medicine Future Scheduled Test PNEUMOVAX >=65 [facility] (PPSV23) [code = Medicine PNEUMOVAX >=65 (PPSV23)] Future Scheduled Test PREVNAR >= 65 (PCV13) [facility] [code = PREVNAR >= 65 Medici ne (PCV13)] Future Scheduled Test MEDICARE AWV [facility] (Initial) [code = Medicine MEDICARE AWV (Initial)] Future Scheduled Test FLU VACCINE > 6 [facility] MONTHS [code = FLU Medicine VACCINE > 6 MONTHS] Encounters Start End Encounter Admission Attending Care Care Encounter Source Date/Time Date/Time Type Type Clinicians Facility Department ID 2022-03-02 [facility] [id number] [facility] 16:19[facility]00 [id number] [facility] 2022-02-08 [facility] [id number] [facility] [address] 08:34:01 [id number] [facility] 2021-12-10 [facility] [id number] [facility] [address] 15[facility]36[facility]00 [facility] 2021-12-09 [facility] [id number] [facility] 14:24:20 [id number] [facility] 2021-12-09 Outpatient Kori Mccoy [facility] [id number] [facility] [address] 14:15:28 [id number] [facility] 2021-12-09 Outpatient Mcocy, Na STLMLC STLMLC [id number] [facility] [address] 13:14:42 [id number] [facility] 2021-12-09 Outpatient Mccoy, Na STLMLC STLMLC [id number] [facility] [address] 13:05:10 [id number] [facility] 2021-12-09 Outpatient Mccoy, Na STLMLC STLMLC [id number] [facility] [address] 12:49:56 [id number] [facility] 2021-12-09 Outpatient Mccoy, Na STLMLC STLMLC [id number] [facility] [address] 12:36:00 [id number] [facility] 2021-12-09 Outpatient Mccoy, Na STLMLC STLMLC [id number] [facility] [address] 12:33:13 [id number] [facility] 2021-12-09 Outpatient Mccoy, Na STLMLC STLMLC [id number] [facility] [address] 12:32:16 [id number] [facility] 2021-12-09 Outpatient Mccoy, Na STLMLC STLMLC [id number] [facility] [address] 12:11:40 [id number] [facility] 2021-12-09 Outpatient Mccoy, Na STLMLC STLMLC [id number] [facility] 12:07:56 [id number] [facility] 2021-12-09 Outpatient Mccoy, Na STLMLC STLMLC [id number] 11:43:48 [id number] [facility] 2021-12-09 Outpatient Mccoy, Na STLMLC STLMLC [id number] [facility] 11:39:42 [id number] [facility] 2022-03-04 2022-03-04 ambulatory [facility] [id number] [facility] 2022-02-10 2022-02-10 ambulatory [facility]MLC [facility] [id number] [facility] 2022-02-10 2022-02-10 ambulatory [facility]MLC [facility] [id number] [facility] 2022-01-27 2022-01-27 Outpatient [facility] [id number] [facility] 08:30:50 11:41:46 Colleg e of Medicin e 2022-01-27 2022-01-27 Outpatient [place] [facility] [place] [id number] [facility] 08:31:18 10:42:49 LEAH Nikita ege of Medicin e 2022-01-14 2022-01-14 ambulatory [facility] [id number] [facility] 2021-10-29 2021-10-29 ambulatory [facility] [id number] [facility] 2021-10-21 2021-10-21 Outpatient REY [facility] [id number] [facility] 09:21:49 10:40:52 LEAH Nikita ege of Medicin e 2021-10-21 2021-10-21 ambulatory [facility]C [facility] [id number] [facility] 2021-10-02 2021-10-02 ambulatory [facility] [id number] [facility] 2021-10-01 2021-10-01 ambulatory [facility] [id number] [facility] 2021-08-19 2021-08-19 Outpatient [facility] [id number] [facility] 2021-07-30 2021-07-30 Outpatient [facility] [id number] [facility] 2021-07-13 2021-07-13 Outpatient [facility] [id number] [facility] 2021-07-08 2021-07-08 Outpatient DONI LEZAMA [facility] [id number] [facility] 10:18:53 11:40:29 LEAH Nikita ege of Medicin e 2021-07-06 2021-07-06 Outpatient [facility] [id number] [facility] 2021-07-01 2021-07-01 Outpatient [facility] [id number] [facility] 2021-06-01 2021-06-01 Outpatient [facility] [id number] [facility] 2021-04-29 2021-04-29 Outpatient [facility] [id number] [facility] 2021-03-10 2021-03-10 Outpatient [facility] [id number] [facility] 2021-03-05 2021-03-05 Outpatient [facility] [id number] [facility] 2021-02-17 2021-02-17 Outpatient [facility] [id number] [facility] 2021-02-16 2021-02-16 Outpatient [facility] [id number] [facility] 2021-02-12 2021-02-12 Outpatient [facility]C [facility] [id number] [facility] 2021-02-11 2021-02-11 Outpatient [facility] [id number] [facility] 2021-01-21 2021-01-21 Outpatient [facility] [id number] [facility] 2021-01-02 2021-01-02 Outpatient [facility] [id number] [facility] 2020-10-24 2020-10-24 Outpatient [facility] [id number] [facility] 2020-10-07 2020-10-07 Outpatient [facility] [id number] [facility] 2020-10-07 2020-10-07 Outpatient [facility] [id number] [facility] 2020-10-07 2020-10-07 Outpatient [facility] [id number] [facility] 2020-08-27 2020-08-27 Outpatient [facility]MLC [facility] [id number] [facility] 2020-07-23 2020-07-23 [facility] [id number] [facility] 08:40:00 08:40:00 t [place] [employer] s - Drive [facility] l Medicine Outpati ent Clinics 2020-07-22 2020-07-22 [facility] [id number] [facility] 17:01:00 17:01:00 [place] [employer] s - Drive [facility] l Medicine Outpati ent Clinics 2020-07-07 2020-07-07 [facility] [id number] [facility] 16:22:00 16:22:[address] [employer] s - Drive [facility] Clinics 2020-07-04 2020-07-04 [facility] [id number] 11:20:00 11:20:00 [place] [employer] - Drive [facility] l Medicine Outpati ent Clinics 2020-07-04 2020-07-04 [facility] [id number] 08:10:00 08:10:00 [place] [employer] - Drive [facility] Medicine Outpati ent Clinics 2020-04-22 2020-04-22 [facility] [id number] [facility] 13:20:00 13:20:00 t [employer] s - Drive [facility] l Medicine Outpati ent Clinics 2019-11-21 2019-11-21 Office ESTEBAN Lezama [id number] [place] [address] 14:51:13 16:43:49 Visit Leah AMBULATOR [id number] College Y [id number] [facility] christopher 300 e 2019-11-21 2019-11-21 Office ESTEBAN Lezama [id number] 14:51:13 16:43:49 Visit Leah AMBULATOR [id number] Y [id number] 2019-10-23 2019-10-23 [facility] [id number] [facility] 13:20:00 13:20:00 [place] [employer] - Mod[employer]ri [facility] Medicine Outpati ent Clinics 2019-08-02 2019-08-02 [facility] [id number] 10:02:00 10:02:00 [place] [employer] - Drive [facility] Medicine l Medicine Outpati ent Clinics 2019-07-25 2019-07-25 [facility] [id number] [address] 09:40:00 09:40:00 [place] [employer] - Drive [facility] Medicine l Medicine Outpati ent Clinics 2019-05-22 2019-05-22 [facility] [id number] 09:20:00 09:20:00 [place] [employer] - Drive [facility] Medicine Outpati ent Clinics 2019-04-24 2019-04-24 [facility] [id number] 09:40:00 09:40:00 t [employer] [facility] Medicine Outpati ent Clinics 2019-02-01 2019-02-01 [facility] [id number] 09:30:00 09:30:00 [employer] [facility] Medicine Outpati ent Clinics 2019-01-16 2019-01-16 [facility] [id number] [facility] 09:25:00 09:25:00 [employer] [facility] Medicine Outpati ent Clinics 2018-12-18 2018-12-18 [facility] [id number] [facility] 13:34:00 13:34:00 [employer] [facility] Medicine Outpati ent Clinics 2018-12-18 2018-12-18 [facility] [id number] [facility] 09:00:00 09:00:00 [employer] [facility] Medicine Outpati ent Clinics 2018-12-15 2018-12-15 [facility] [id number] 10:47:00 10:47:00 [employer] [facility] Medicine Outpati ent Clinics 2018-10-24 2018-10-24 [facility] [id number] 08:30:00 08:30:00 t [employer] [facility] Medicine Outpati ent Clinics Results Test Description Test Time Test Comments Results Result Comments Source CULTURE, URINE/SENSITIVITY ON ALL 2019-11-24 12:08:02 Test Item Value Reference Range Interpretation Comme nts CULTURE, URINE/SENSITIVITY ON SPECIMEN NUMBER: CULTURE, URINE/SENSITIVITY ALL (test code = 2236) [id number] ON AL L SPECIMEN NUMBER : [id number] SPECIMEN COMMEN T: URINE SOURCE: URINE R EPORT STATUS: FINAL FINAL REPORT: 11/24/2019 NO G ROWTH AFTER 36 HOURS INCUBATIO N Unless Otherwis e Indicated, All Testing Per formed At: [facility], [address] [place], [place] [address] 4 Laboratory Dire ctor: Wang Lacy M.D. CLIA Number [id number] Cap Accreditation [place]. [id number] [facility] [id number] 17:32:00Surgical Pathology Report Case: [id number] Authorizing Provider: Leah Lezama MD Collected: 10/30/2019 1037 Ordering Location: [facility] PERIOPER[facility]IVE Received: 10/31/2019 0846 SERVICES Pathologist: [...] BY TUMOR Signing Pathologist Direct Phone Line: [phone] signed by Yan Hays MDon 11/02/2019 at 5:32 PMThe invasive component represents no more than 5% of the total tumor mass.[id number] X 2Preoperative and postoperative diagnoses: bladder tumorA. [...] specimen entirely submitted in cassettes B1-AB. JG/ewPerformed.POCT-GLUCOSE [id number] 06:24:00 Test Item Value Reference Range Interpretation Comments POC-GLUCOSE METER 76 mg/dL 70-110 : TESTED A T [facility] 6720 ([employer]) (test code = [place], 1538) 49683: Straight Cutter/Techni jordana ID = [id number] for SEBASTIAN VALLE PH
[2022-03-08 09:13] LABS: Absolute Lymphocytes (CBC) 0.7 K/uL (0.7-4.9); Hematocrit 33.7 % (39.6-49.0); Lymphocytes % 21.8 % (15.3-44.8); MPV 7.8 fL (7.6-11.3); RBC Red Blood Cell Count 3.77 M/uL (4.33-5.43)
[2022-03-08 09:22] LABS: Protime INR 1.12
[2022-03-08 09:31] LABS: Albumin 3.5 g/dL (3.4-5.0); Bilirubin Total 0.4 mg/dL (0.2-1.0); Potassium 4.1 mmol/L (3.5-5.1); Protein, Total 6.7 g/dL (6.4-8.2)
--- NOTE | 2022-03-08 10:04 | RAD REPORT ---
EXAM DESCRIPTION: CT - Abdomen Pelvis W Contrast - 03/08/2022 9:23 am CLINICAL HISTORY: LLQ abdominal pain COMPARISON: Abdomen Pelvis W Contrast dated 03/03/2022 TECHNIQUE: Biphasic, helical CT imaging of the abdomen and pelvis was performed following 100 ml non -ionic IV contrast. No oral contrast administered. All CT scans are performed using dose optimization technique as appropriate and may include automated exposure control or mA/KV adjustment according to patient size. FINDINGS: No suspicious findings in the lung bases. The liver, spleen, and pancreas show no suspicious findings. Small hepatic cysts are present. Gallbla dder and biliary tree are also without suspicious finding. Symmetric renal function is seen with no hydronephrosis or suspicious renal mass. No pyelonephritis o r acute parenchymal process. No bladder abnormalities. No adrenal abnormalities. Prostate gland and s eminal vesicles show no suspicious findings. Stomach and small bowel without acute findings. From cecum through descending colon there is no acute colon process. Sigmoid diverticulosis is present. The area of sigmoid diverticulitis seen on February 13 has shown significant improvement. Only a mild amount of bowel wall thickening remains. There is no abscess, free air or other diverticulitis complication. No mass or bulky lymphadenopathy. Bilateral fat filled inguinal hernias are present. Disc and bone degenerative changes are present. IMPRESSION: Substantial improvement in the sigmoid diverticulitis since the March 03 study. No abscess, free air or diverticulitis complication. Exam otherwise without acute finding or significant change from comparison.
--- NOTE | 2022-03-08 10:11 | EDPHYS ---
Physician Documentation [facility] Name: Noah Whyte Age: 81 yrs Sex: Male : 1940 Arrival Date: 03/08/2022 Time: 08:29 Bed 19 Private MD: Kori Mccoy ED Physician Zaire Alvarez HPI: 03/08 09:03 This 81 yrs old Male presents to ER via Ambulatory with complaints of Dizziness. rn 09:03 The patient presents with dizziness, generalized weakness, lightheadedness. Onset: The rn symptoms/episode began/occurred 2 day(s) ago. Context: occurred at home, occurred while the patient was at rest. Modifying factors: The symptoms are alleviated by lying down, the symptoms are aggravated by nothing. Associated signs and symptoms: Pertinent positives: abdominal pain, Pertinent negatives: chest pain, confusion, diaphoresis, focal weakness, head injury, headache, shortness of breath, syncope, vomiting. Severity of symptoms: At their worst the symptoms were mild in the emergency department the symptoms are unchanged. The patient has not experienced similar symptoms in the past. The patient has been recently seen at the [facility] Emergency Department. 09:08 REports had dark black stool earlier in week, but now brown in color, does not take rn blood thinners, no bright red or maroon blood in stool noted.. Historical: - Allergies: 08:42 Clarithromycin; aa5 08:42 Levofloxacin; aa5 - PMHx: 08:42 Bladder Tumor - Cancer; GERD; High Cholesterol; Hypertension; Hypothyroidism; Vertigo; aa5 Anemia; - PSHx: 08:42 cataract repair; TURP; aa5 - Immunization history:: Flu vaccine is up to date. - Social history:: Smoking status: Patient denies any tobacco usage or history of. - Family history:: not pertinent. - Hospitalizations: : No recent hospitalization is reported. ROS: 09:03 Constitutional: Negative for fever, chills, and weight loss, Eyes: Negative for injury, rn pain, redness, and discharge, Neck: Negative for injury, pain, and swelling, Cardiovascular: Negative for chest pain, palpitations, and edema, Respiratory: Negative for shortness of breath, cough, wheezing, and pleuritic chest pain, Abdomen/GI: + abd pain Back: Negative for injury and pain, MS/Extremity: Negative for injury and deformity, Skin: Negative for injury, rash, and discoloration, Neuro: Negative for headache, numbness, tingling, and seizure. Exam: 09:03 Constitutional: This is a well developed, well nourished patient who is awake, alert, rn and in no acute distress. Head/Face: Normocephalic, atraumatic. Eyes: Periorbital areas with no swelling, redness, or edema. ENT: dry MM Cardiovascular: Regular rate and rhythm. No pulse deficits. Respiratory: No increased work of breathing, no retractions or nasal flaring. Abdomen/GI: soft, mild LLQ abd tenderness, no rebound/guarding Skin: Warm, dry MS/ Extremity: Pulses equal, no cyanosis. Neuro: Awake and alert, GCS 15 Vital Signs: 08:31 BP 131 / 82; Pulse 66; Resp 16 S; Temp 97.7(O); Pulse Ox 97% on R/A; Weight 73.94 kg aa5 (R); Height 5 ft. 8 in. (172.72 cm) (R); 10:22 BP 119 / 64; Pulse 53; Resp 17; Temp 97.9; Pulse Ox 99% ; bp 08:31 Body Mass Index 24.78 (73.94 kg, 172.72 cm) aa5 MDM: 08:29 Patient medically screened. rn 10:08 Differential diagnosis: generalized weakness, GI bleed, hypovolemia, idiopathic rn dizziness, worsening diverticulitis. Data reviewed: vital signs, nurses notes, lab test result(s), radiologic studies, CT scan, and as a result, I will discharge patient. Counseling: I had a detailed discussion with the patient and/or guardian regarding: the historical points, exam findings, and any diagnostic results supporting the discharge/admit diagnosis, lab results, radiology results, the need for outpatient follow up, to return to the emergency department if symptoms worsen or persist or if there are any questions or concerns that arise at home. Response to treatment: the patient's symptoms have mildly improved after treatment, and as a result, I will discharge patient. Special discussion: I discussed with the patient/guardian in detail that at this point there is no indication for admission to the hospital. It is understood, however, that if the symptoms persist or worsen the patient needs to return immediately for re-evaluation. ED course: Stable vitals, substantial improvement in diverticulitis on CT, no significant change in hemoglobin and patient states stool no longer dark. Will dc home with return precautions.. 03/08 08:50 Order name: CBC with Diff; Complete Time: 09:58 rn 03/08 08:50 Order name: CMP; Complete Time: 09:58 rn 03/08 08:50 Order name: Lipase; Complete Time: 09:58 rn 03/08 08:50 Order name: PT-INR; Complete Time: 09:58 rn 03/08 08:50 Order name: Ptt, Activated; Complete Time: 09:58 rn 03/08 09:54 Order name: CREATININE WHOLE BLOOD; Complete Time: 09:58 EDMS 03/08 08:50 Order name: CT Abd/Pelvis - IV Contrast Only; Complete Time: 10:06 rn 03/08 08:50 Order name: IV Saline Lock; Complete Time: 09:10 rn 03/08 08:50 Order name: Labs collected and sent; Complete Time: 09:10 rn Administered Medications: 09:00 Drug: NS 0.9% 1000 ml Route: IV; Rate: 1 bolus; Site: right forearm; bp 10:24 Follow up: IV Status: Completed infusion; IV Intake: 1000ml bp Disposition Summary: 03/08/22 10:10 Discharge Ordered Location: Home rn Problem: an ongoing problem rn Symptoms: have improved rn Condition: Stable rn Diagnosis - Diverticulitis of intestine, part unspecified, without perforation or abscess rn without bleeding - Improving Followup: rn - With: Private Physician - When: As needed - Reason: Recheck today's complaints, Re-evaluation by your physician Discharge Instructions: - Discharge Summary Sheet rn - Diverticulitis rn - Dizziness rn Forms: - Medication Reconciliation Form rn - Thank You Letter rn - Antibiotic criminal defense attorney - Prescription Opioid Use rn Signatures: Dispatcher [employer] EDMS Zaire Alvarez MD MD rn Calderon, Audri RN RN aa5 Silverio Fernandes RN RN bp Corrections: (The following items were deleted from the chart) 09:08 09:03 Constitutional: This is a well developed, well nourished patient who is awake, rn alert, and in no acute distress. Head/Face: Normocephalic, atraumatic. Eyes: Periorbital areas with no swelling, redness, or edema. rn
--- NOTE | 2022-03-08 10:11 | ER ---
Nurse's Notes [facility] Name: Noah Whyte Age: 81 yrs Sex: Male : 1940 Arrival Date: 03/08/2022 Time: 08:29 Bed 19 Private MD: Kori Mccoy Diagnosis: Diverticulitis of intestine, part unspecified, without perforation or abscess without bleeding-Improving Presentation: 03/08 08:31 Chief complaint: Patient states: was seen here and diagnosed with diverticulitis on aa5 Tuesday, chose to be d/c'd home and followed up with GI doctor. Pt states "over the weekend I just been feeling lightheaded and I drink gatorade and start feeling a little better". pt states "I was having black stool but they are getting better and now they are dark brown". 08:31 Coronavirus screen: At this time, the client does not indicate any symptoms associated aa5 with coronavirus-19. Ebola Screen: No symptoms or risks identified at this time. Initial Sepsis Screen: Does the patient meet any 2 criteria? No. Patient's initial sepsis screen is negative. Does the patient have a suspected source of infection? No. Patient's initial sepsis screen is negative. Risk Assessment: Do you want to hurt yourself or someone else? Patient reports no desire to harm self or others. Onset of symptoms was February 2022. 08:31 Acuity: JAIMIE 3 aa5 08:31 Method Of Arrival: Ambulatory aa5 Triage Assessment: 08:45 General: Appears in no apparent distress. comfortable, Behavior is calm, cooperative, bp appropriate for age. Pain: Denies pain. EENT: No deficits noted. Neuro: Level of Consciousness is awake, alert, obeys commands, Oriented to Appropriate for age Gait is steady, Reports dizziness. Cardiovascular: No deficits noted. Respiratory: No deficits noted. GI: No signs and/or symptoms were reported involving the gastrointestinal system. : No signs and/or symptoms were reported regarding the genitourinary system. Derm: No deficits noted. Musculoskeletal: No deficits noted. Historical: - Allergies: 08:42 Clarithromycin; aa5 08:42 Levofloxacin; aa5 - PMHx: 08:42 Bladder Tumor - Cancer; GERD; High Cholesterol; Hypertension; Hypothyroidism; Vertigo; aa5 Anemia; - PSHx: 08:42 cataract repair; TURP; aa5 - Immunization history:: Flu vaccine is up to date. - Social history:: Smoking status: Patient denies any tobacco usage or history of. - Family history:: not pertinent. - Hospitalizations: : No recent hospitalization is reported. Screenin:45 Abuse screen: Denies threats or abuse. Denies injuries from another. Nutritional bp screening: No deficits noted. Tuberculosis screening: No symptoms or risk factors identified. Fall Risk None identified. Assessment: 08:45 General: SEE TRIAGE NOTE. bp 10:23 Reassessment: PT D/C HOME AMBULATORY WITH FAMILY, DX WITH DIVERTICULITIS WITHOUT bp PERFORATION. Vital Signs: 08:31 BP 131 / 82; Pulse 66; Resp 16 S; Temp 97.7(O); Pulse Ox 97% on R/A; Weight 73.94 kg aa5 (R); Height 5 ft. 8 in. (172.72 cm) (R); 10:22 BP 119 / 64; Pulse 53; Resp 17; Temp 97.9; Pulse Ox 99% ; bp 08:31 Body Mass Index 24.78 (73.94 kg, 172.72 cm) aa5 ED Course: 08:29 Patient arrived in ED. as 08:29 Kori Mccoy MD is Private Physician. as 08:29 Zaire Alvarez MD is Attending Physician. rn 08:31 Silverio Fernandes, KORI is Primary Nurse. bp 08:31 Arm band placed on. aa5 08:41 Triage completed. aa5 08:45 Patient has correct armband on for positive identification. Bed in low position. Call bp light in reach. Side rails up X2. Adult w/ patient. 09:00 Inserted saline lock: 20 gauge in right forearm, using aseptic technique. Blood bp collected. 09:24 CT Abd/Pelvis - IV Contrast Only In Process Unspecified. EDMS 10:23 No provider procedures requiring assistance completed. IV discontinued, intact, bp bleeding controlled, No redness/swelling at site. Pressure dressing applied. Administered Medications: 09:00 Drug: NS 0.9% 1000 ml Route: IV; Rate: 1 bolus; Site: right forearm; bp 10:24 Follow up: IV Status: Completed infusion; IV Intake: 1000ml bp Intake: 10:24 IV: 1000ml; Total: 1000ml. bp Outcome: 10:10 Discharge ordered by . rn 10:23 Discharged to home ambulatory, with family. bp 10:23 Condition: stable 10:23 Discharge instructions given to patient, family, Instructed on discharge instructions, follow up and referral plans. Demonstrated understanding of instructions, follow-up care. 10:24 Patient left the ED. bp Signatures: Dispatcher [employer] Irma Bailey Roman, MD MD rn Calderon, Audri RN RN aa5 Silverio Fernandes RN RN bp
[2022-03-08 10:33] VITALS: BP 119/64; TEMP 97.9; O2SAT 99
== END 2022-03-08 10:24 ==
LOC: ER 08:27
DX: K57.92 Diverticulitis of intestine, part unspecified, without perforation or abscess without bleeding (principal); E78.00 Pure hypercholesterolemia, unspecified; I10 Essential (primary) hypertension; E03.9 Hypothyroidism, unspecified; K21.9 Gastro-esophageal reflux disease without esophagitis; Z85.51 Personal history of malignant neoplasm of bladder; Z88.8 Allergy status to other drugs, medicaments and biological substances
CPT/HCPCS: 85025; 36415; 85610; 82565; 85730; 83690; 80053; 74177; 96360; 99284; Q9967

== ENCOUNTER 2022-03-12 09:36 | Emergency (ER) | payer OTHER ==
--- OUTSIDE RECORDS SUMMARY | 2022-03-12 09:39 | XMS REPORT | Continuity of Care Document ---
:1940 Author Organization [facility] t Address [address] [place] [address] Care Team Providers Name Role Phone Jenn Mccoy Attending Clinician Unavailable REY Attending Clinician Unavailable Rey WORLEY Attending Clinician REY Attending Clinician Unavailable REY Admitting Clinician Unavailable Payers Payer Name Policy Type Policy Number Effective Date Expiration Date [facility] [id number] 2020 ADVANTAGE PPO-UHC 00:00:00 [facility] MEDICARE [id number] ADVANTAGE PPO Problems Condition Condition Condition Status Onset Resolution Last Treating Co mments Source Name Details Category Date Date Treatment Clinician Date Encounter Encounter Disease Active [facility] for for 1-22 College follow-up follow-up 00:00: of surveillan surveillan 00 Me dicin ce of ce of e 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 [facility] jennifer neoplasm neoplasm 11-21 Colleg e of of 00:00: of overlappin overlappin 00 Me dicin g sites of g sites of e bladder bladder (HCCode) (HCCode) Allergies, Adverse Reactions, Alerts Allergy Allergy Status Severity Reaction(s) Onset Inactive Treating Comm ents Source Name Type Date Date Clinician Mey Zarate Active 2018-11 [facility] ty to 2-11 College adverse 00:00: of [...] Date Quantity Comments Source Sex Assigned At [facility] l[facility] Medicine Tobacco Comment 2019-10-24 2019-10-24 7 [facility] l[facility] of 00:00:00 00:00:00 Medicine Smoking Status Start Date Stop Date Source Never smoker [facility] o f Medicine Medications Ordered Filled Start Stop Current Ordering Indication Dosage Frequency Signature Comments Components Source Medication Medication Date Date Medication? Clinician (SIG) Name Name Accu-Chek Accu-Chek Yes Na Mccoy as [facility]22 [facility] 00 l [facility] ent Clinics sulfamethox 2018-11 Yes [id number] 1{tbl} Take 1 Tab [facility] azole-trime 2-11 by mouth Nikita ege thoprim 00:00: two times of (BACTRIM 00 daily. Medicin DS) 800-160 e MG per tablet Glucometer Glucometer Yes Na Mccoy one [facility] Levothyroxi Levothyroxi Yes Na Mccoy [address] [facility] ne Sodium ne Sodium on an Luke s - empty Memoria stomach in l the Outpati morning ent Clinics Lancets Lancets Yes Na Mccoy as [facility] Accu-Chek Accu-Chek Yes Na Mccoy as [facility] Softclix Softclix directed Sara es - [facility]ets [facility] Meclizine Meclizine Yes Na Mccoy TAKE [address] [facility] HCl HCl TABLET BY [facility] - MOUTH Memoria THREE l TIMES Outpati DAILY ent Clinics Mobic Mobic Yes Na Mccoy [address] [facility] Euthyrox Euthyrox Yes Na Mccoy TAKE [address] TABLET BY [facility] - MOUTH ONCE Memoria DAILY IN l THE Outpati MORNING ON ent AN EMPTY Clinics STOMACH EpiPen EpiPen Yes Na Mccoy not [facility] 2-Gerald 2-Gerald defined [facility] Olopatadine Olopatadine Yes Na Mccoy [address] [facility] HCl HCl in each [facility] - nostril [facility] Meclizine Meclizine Yes Na Mccoy TAKE [address] [facility] HCl HCl TABLET BY [facility] - MOUTH 3 Memoria TIMES A l DAY [facility] Levothyroxi Levothyroxi Yes Na Mccoy [address] [facility] ne Sodium ne Sodium on an Luke s - empty [facility] stomach in l the [facility] morning ent Clinics Cipro Cipro Yes Na Mccoy [address] [facility] Augmentin Augmentin Yes Na Mccoy [address] [facility] Crestor Crestor Yes Na Mccoy [...] 2019-07-[address] [facility] Vital Signs Vital Name Observation Time Observation Value Comments Source Systolic blood 2019-11-21 21:50:00 136 mm[Hg] [facility] pressure Medicine Diastolic blood 2019-11-21 21:50:00 76 mm[Hg] [facility] Medicine Heart rate 2019-11-21 21:50:00 51 /min [facility] Body height 2019-11-21 21:50:00 172.7 cm [facility] Body weight 2019-11-21 21:50:00 72.576 kg [facility] BMI 2019-11-21 21:50:00 24.33 kg/m2 [facility] Systolic blood 2019-11-21 21:50:00 136 mm[Hg] [facility] Medicine Diastolic blood 2019-11-21 21:50:00 76 mm[Hg] [facility] Medicine Heart rate 2019-11-21 21:50:00 51 /[facility] 2019-11-21 21:50:00 172.7 cm [facility] Body weight 2019-11-21 21:50:00 72.576 [facility] BMI 2019-11-21 21:50:00 24.33 kg/m2 [facility] Procedures Procedure Date / Time Performed Performing Clinician Sour e CULTURE, 2019-11-22 14:56:00 Leah Lezama [facility] Nikita ege of URINE/SENSITIVITY ON Medicine ALL Plan of Care Planned Activity Planned Date Details Comments Source Future Scheduled Test TETANUS SHOT (ADULT) [facility] [code = TETANUS SHOT Medicin e (ADULT)] Future Scheduled Test FALL SCREEN [code = [facility] FALL SCREEN] Medicine Future Scheduled Test PNEUMOVAX >=65 [facility] (PPSV23) [code = Medicine PNEUMOVAX >=65 (PPSV23)] Future Scheduled Test PREVNAR >= 65 (PCV13) [facility] [code = PREVNAR >= 65 Medici ne (PCV13)] Future Scheduled Test MEDICARE AWV [facility] (Initial) [code = Medicine MEDICARE AWV (Initial)] Future Scheduled Test FLU VACCINE > 6 [facility] MONTHS [code = FLU Medicine VACCINE > 6 MONTHS] Encounters Start End Encounter Admission Attending Care Care Encounter Source Date/Time Date/Time Type Type Clinicians Facility Department ID 2022-03-02 [facility] [id number] [facility] [address] 16:19[facility]00 [id number] [facility] 2022-02-08 [facility] [id number] 08:34:01 [id number] [facility] 2021-12-10 [facility] [id number] [facility] [address] 15:36[facility]00 [facility] 2021-12-09 [facility] [id number] [facility] [address] 14:24:20 [id number] [facility] 2021-12-09 Outpatient Kori Mccoy [facility] [id number] [facility] 14:15:28 [id number] [facility] 2021-12-09 Outpatient Mccoy, Na [facility] [id number] [facility] 13:14:42 [id number] [facility] 2021-12-09 Outpatient Mccoy, Na [facility] [id number] [facility] 13:05:10 [id number] [facility] 2021-12-09 Outpatient Mccoy, Na [facility] [id number] [facility] 12:49:56 [id number] [facility] 2021-12-09 Outpatient Mccoy, Na [facility] [id number] [facility] 12:36:00 [id number] [facility] 2021-12-09 Outpatient Mccoy, Na [facility] [id number] [facility] 12:33:13 [id number] [facility] 2021-12-09 Outpatient Mccoy, Na [facility] [id number] 12:32:16 [id number] [facility] 2021-12-09 Outpatient Mccoy, Na [facility] [id number] 12:11:40 [id number] [facility] 2021-12-09 Outpatient Mccoy, Na [facility] [id number] 12:07:56 [id number] [facility] 2021-12-09 Outpatient Mccoy, Na [facility] [id number] 11:43:48 [id number] [facility] 2021-12-09 Outpatient Mccoy, Na [facility] [id number] 11:39:42 [id number] [facility] 2022-03-08 2022-03-08 ambulatory [facility] [id number] [facility] 2022-03-04 2022-03-04 ambulatory [facility] [id number] [facility] 2022-03-02 2022-03-02 ambulatory [facility] [id number] [facility] 2022-02-10 2022-02-10 ambulatory [facility] [id number] [facility] 2022-02-10 2022-02-10 ambulatory [facility] [id number] [facility] 2022-01-27 2022-01-27 Outpatient [facility] [id number] [facility] 08:30:50 11:41:46 [facility] e [facility] Medicin e 2022-01-27 2022-01-27 Outpatient DONI LEZAMA [facility] [id number] [facility] 08:31:18 10:42:49 LEAH Nikita ege of Medicin e 2022-01-14 2022-01-14 ambulatory [facility] [id number] [facility] 2021-10-29 2021-10-29 ambulatory [facility] [id number] [facility] 2021-10-21 2021-10-21 Outpatient DONI LEZAMA [facility] [id number] [facility] 09:21:49 10:40:52 LEAH Nikita ege of Medicin e 2021-10-21 2021-10-21 ambulatory [facility] [id number] [facility] 2021-10-02 2021-10-02 ambulatory [facility] [id number] [facility] 2021-10-01 2021-10-01 ambulatory [facility] [id number] [facility] 2021-08-19 2021-08-19 [facility] [id number] [facility] 2021-07-30 2021-07-30 [facility] [id number] [facility] 2021-07-13 2021-07-13 [facility] [id number] [facility] 2021-07-08 2021-07-08 Outpatient LEZAMADONI [facility] [id number] [facility] 10:18:53 11:40:29 LEAH Nikita ege of Medicin e 2021-07-06 2021-07-06 Out[facility] [id number] [facility] 2021-07-01 2021-07-01 [facility] [id number] [facility] 2021-06-01 2021-06-01 [facility] [id number] [facility] 2021-04-29 2021-04-29 [facility] [id number] [facility] 2021-03-10 2021-03-10 Outpatient [facility] [id number] [facility] 2021-03-05 2021-03-05 [facility] [id number] [facility] 2021-02-17 2021-02-17 [facility] [id number] [facility] 2021-02-16 2021-02-16 Outpatient [facility] [id number] [facility] 2021-02-12 2021-02-12 Outpatient [facility] [id number] [facility] 2021-02-11 2021-02-11 Outpatient [facility] [id number] [facility] 2021-01-21 2021-01-21 Outpatient [facility] [id number] [facility] 2021-01-02 2021-01-02 Outpatient [facility] [id number] [facility] 2020-10-24 2020-10-24 Outpatient [facility] [id number] [facility] 2020-10-07 2020-10-07 Outpatient [facility] [id number] [facility] 2020-10-07 2020-10-07 Outpatient [facility] [id number] [facility] 2020-10-07 2020-10-07 Outpatient [facility] [id number] [facility] 2020-08-27 2020-08-27 Outpatient [facility] [id number] [facility] 2020-07-23 2020-07-23 [facility] [id number] [facility] 08:40:00 08:40:00 [place] [facility] Outpati ent Clinics 2020-07-22 2020-07-22 [facility] [id number] 17:01:00 17:01:00 [place] [address] [address] [place] - Drive [facility] Medicine Outpati ent Clinics 2020-07-07 2020-07-07 [facility] [id number] 16:22:00 16:22:00 [place] [address] [employer] - Drive [facility] Medicine Outpati ent Clinics 2020-07-04 2020-07-04 [facility] [id number] 11:20:00 11:20:00 [place] [address] [employer] s - Drive [facility] Medicine Outpati ent Clinics 2020-07-04 2020-07-04 [facility] [id number] 08:10:00 08:10:00 [place] [employer] - Drive [facility] Medicine Outpati ent Clinics 2020-04-22 2020-04-22 [facility] [id number] [address] 13:20:00 13:20:00 [place] [employer] s - Drive [facility] Medicine Outpati ent Clinics 2019-11-21 2019-11-21 Office Lezama, [facility] [id number] [place] [address] 14:51:13 16:43:49 Visit Leah AMBULATOR [id number] College Y [id number] [facility] 300 e 2019-11-21 2019-11-21 Office Lezama, [facility] [id number] 14:51:13 16:43:49 Visit Leah AMBULATOR [id number] Y [id number] 2019-10-23 2019-10-23 [facility] [id number] [address] 13:20:00 13:20:00 [place] [employer] [employer] - Drive [facility] Medicine Outpati ent Clinics 2019-08-02 2019-08-02 [facility] [id number] 10:02:00 10:02:00 [place] [address] [employer] s - Drive [facility] Medicine Outpati ent Clinics 2019-07-25 2019-07-25 [facility] [id number] 09:40:00 09:40:00 [place] - Drive [facility] Medicine Medicine Outpati ent Clinics 2019-05-22 2019-05-22 [facility] [id number] 09:20:00 09:20:00 [place] [employer] - Drive [facility] Medicine Outpati ent Clinics 2019-04-24 2019-04-24 [facility] [id number] [address] 09:40:00 09:40:00 [place] [employer] s - Drive [facility] Medicine Medicine Outpati ent Clinics 2019-02-01 2019-02-01 [facility] [id number] 09:30:00 09:30:00 [place] [employer] - Drive [facility] Medicine Outpati ent Clinics 2019-01-16 2019-01-16 [facility] [id number] 09:25:00 09:25:00 [place] [employer] - Drive [facility] Medicine Outpati ent Clinics 2018-12-18 2018-12-18 [facility] [id number] 13:34:00 13:34:00 [place] [employer] - Drive [facility] Medicine Outpati ent Clinics 2018-12-18 2018-12-18 [facility] [id number] 09:00:00 09:00:00 [place] [employer] [facility] Medicine Outpati ent Clinics 2018-12-15 2018-12-15 [facility] [id number] 10:47:00 10:47:00 [place] [employer] - Drive [facility] Medicine Outpati ent Clinics 2018-10-24 2018-10-24 [facility] [id number] 08:30:00 08:30:00 [place] [employer] - Drive [facility] Medicine Outpati ent Clinics Results Test Description Test Time Test Comments Results Result Comments Source CULTURE, URINE/SENSITIVITY ON ALL 2019-11-24 12:08:02 Test Item Value Reference Range Interpretation Comme nts CULTURE, URINE/SENSITIVITY ON SPECIMEN NUMBER: CULTURE, URINE/SENSITIVITY ALL (test code = 2236) [id number] ON AL L SPECIMEN NUMBER : [id number] SPECIMEN COMMEN T: URINE SOURCE: URINE R EPORT STATUS: FINAL FINAL REPORT: 11/24/2019 NO G ROWTH AFTER 36 HOURS INCUBATIO N Unless Otherwis e Indicated, All Testing Per formed At: [facility], [address] [place] [address] 4 Laboratory Dire ctor: Wang Lacy M.D. CLIA Number [id number] Cap Accreditation N o. [id number] [facility] [id number] 17:32:00Surgical Pathology Report Case: [id number] Authorizing Provider: Leah Lezama MD Collected: 10/30/2019 1037 Ordering Location: [facility] PERIOPERATIVE Received: 10/31/2019 0846 SERVICES [...] BY TUMOR Signing Pathologist Direct Phone Line: [phone] signed by Yan Hays MDon 11/02/2019 at 5:32 PMThe invasive component represents no more than 5% of the total tumor mass.[id number] X 2Preoperative and postoperative diagnoses: bladder tumorA. [...] specimen entirely submitted in cassettes B1-AB. JG/ewPerformed.POCT-GLUCOSE [id number] 06:24:00 Test Item Value Reference Range Interpretation Comments POC-GLUCOSE METER 76 mg/dL 70-110 : TESTED A T [facility] 6720 ([facility]) (test code = LARRY COLES [place], 1538) [address]86: Launderette Attendant/Techni jordana ID = [id number] for SEBASTIAN VALLE PH
--- NOTE | 2022-03-12 11:00 | ER ---
Nurse's Notes [facility] Name: Noah Whyte Age: 81 yrs Sex: Male : 1940 Arrival Date: 03/12/2022 Time: 09:38 Bed 23 Private MD: Kori Mccoy Diagnosis: Weakness;Lightheadedness Presentation: 03/12 09:56 Chief complaint: Patient states: "I have been here before for the same thing and no one ab2 can figure it out. I was reading and I think i'm lightheaded due to my B12 levels being low, so I was hoping I could come get that checked." Pt c/o dizziness. Coronavirus screen: Vaccine status: Patient reports receiving the 2nd dose of the covid vaccine. Client denies travel out of the [place] in the last 14 days. At this time, the client does not indicate any symptoms associated with coronavirus-19. Ebola Screen: Patient negative for fever greater than or equal to 101.5 degrees Fahrenheit, and additional compatible Ebola Virus Disease symptoms Patient denies exposure to infectious person. Patient denies travel to an Ebola-affected area in the 21 days before illness onset. No symptoms or risks identified at this time. Initial Sepsis Screen: Does the patient meet any 2 criteria? No. Patient's initial sepsis screen is negative. Does the patient have a suspected source of infection? No. Patient's initial sepsis screen is negative. Risk Assessment: Do you want to hurt yourself or someone else? Patient reports no desire to harm self or others. Onset of symptoms is unknown. 09:56 Method Of Arrival: Ambulatory ab2 09:56 Acuity: JAIMIE 3 ab2 Historical: - Allergies: 09:59 Clarithromycin; ab2 09:59 Levofloxacin; ab2 - PMHx: 09:59 Anemia; Hypertension; Hypothyroidism; Vertigo; High Cholesterol; GERD; Bladder Tumor - ab2 Cancer; - PSHx: 09:59 cataract repair; TURP; ab2 - Immunization history:: Adult Immunizations up to date. - Social history:: Smoking status: Patient denies any tobacco usage or history of. Screenin:00 Abuse screen: Denies threats or abuse. Denies injuries from another. Nutritional ab2 screening: No deficits noted. Tuberculosis screening: No symptoms or risk factors identified. Fall Risk None identified. Assessment: 10:00 General: Appears in no apparent distress. comfortable, Behavior is calm, cooperative, ab2 appropriate for age. Pain: Denies pain. Neuro: Level of Consciousness is awake, alert, obeys commands, Oriented to person, place, time, situation, Appropriate for age Program Consultant are equal bilaterally Moves all extremities. Full function Gait is Speech is normal, Facial symmetry appears normal, Intact Reports dizziness. Cardiovascular: No deficits noted. Denies chest pain, shortness of breath, Heart tones S1 S2 present Patient's skin is warm and dry. Respiratory: No deficits noted. Airway is patent Respiratory effort is even, unlabored, Respiratory pattern is regular, symmetrical, Breath sounds are clear bilaterally. GI: No deficits noted. No signs and/or symptoms were reported involving the gastrointestinal system. Abdomen is round non-distended, Bowel sounds present X 4 quads. Abd is non tender. : No deficits noted. No signs and/or symptoms were reported regarding the genitourinary system. EENT: No deficits noted. No signs and/or symptoms were reported regarding the EENT system. Derm: Skin is fragile, is thin, Skin is dry, Skin is pink, warm \\T\\ dry. normal. Vital Signs: 09:56 BP 119 / 62; Pulse 64; Resp 17; Temp 97.9; Pulse Ox 98% on R/A; Weight 73.48 kg; Height ab2 5 ft. 8 in. (172.72 cm); Pain 0/10; 10:35 BP 113 / 65; Pulse 58; Resp 16; Pulse Ox 99% on R/A; ab2 09:56 Body Mass Index 24.63 (73.48 kg, 172.72 cm) ab2 ED Course: 09:38 Patient arrived in ED. as 09:38 Kori Mccoy MD is Private Physician. as 09:48 Dilan Seo MD is Attending Physician. kdr 09:48 Chandler Butler is Primary Nurse. ab2 09:59 Triage completed. ab2 10:00 Arm band placed on right wrist. ab2 10:01 No provider procedures requiring assistance completed. ab2 10:02 Patient has correct armband on for positive identification. Bed in low position. Call ab2 light in reach. Side rails up X2. Adult w/ patient. 10:31 Vitamin B12 Sent. tp1 10:58 Kori Mccoy MD is Referral Physician. kdr 11:06 Patient did not have IV access during this emergency room visit. ab2 Administered Medications: No medications were administered Outcome: 10:59 Discharge ordered by . kdr 11:06 Discharged to home ambulatory. ab2 11:06 Condition: good 11:06 Discharge instructions given to patient, Instructed on discharge instructions, follow up and referral plans. Demonstrated understanding of instructions, follow-up care. 11:06 Patient left the ED. ab2 Signatures: Dilan Seo MD MD kdr Martinez, Amelia as Parker, Tiffany tp1 Chandler Butler ab2
--- NOTE | 2022-03-12 11:00 | EDPHYS ---
Physician Documentation [facility] Name: Noah Whyte Age: 81 yrs Sex: Male : 1940 Arrival Date: 03/12/2022 Time: 09:38 Bed 23 Private MD: Kori Mccoy ED Physician Dilan Seo HPI: 03/12 14:11 This 81 yrs old Male presents to ER via Ambulatory with complaints of Lightheaded. kdr 14:12 Patient has had weakness, dizziness and being lightheaded for months to years. He has kdr no acute symptoms at this time. He has chronic lightheadedness. He denies dizziness or other related symptoms. He is concerned that he may have a B12 vitamin deficiency. Onset: The symptoms/episode began/occurred gradually, at an unknown time. Patient has had nearly all of the symptoms from months to years. Severity of symptoms: At their worst the symptoms were mild in the emergency department the symptoms have resolved. The patient has experienced similar episodes in the past, chronically. The patient has not recently seen a physician. Historical: - Allergies: 09:59 Clarithromycin; ab2 09:59 Levofloxacin; ab2 - PMHx: 09:59 Anemia; Hypertension; Hypothyroidism; Vertigo; High Cholesterol; GERD; Bladder Tumor - ab2 Cancer; - PSHx: 09:59 cataract repair; TURP; ab2 - Immunization history:: Adult Immunizations up to date. - Social history:: Smoking status: Patient denies any tobacco usage or history of. ROS: 14:12 Constitutional: Negative for fever, chills, and weight loss, Eyes: Negative for injury, kdr pain, redness, and discharge, Neck: Negative for injury, pain, and swelling, Cardiovascular: Negative for chest pain, palpitations, and edema, Respiratory: Negative for shortness of breath, cough, wheezing, and pleuritic chest pain, Abdomen/GI: Negative for abdominal pain, nausea, vomiting, diarrhea, and constipation, Back: Negative for injury and pain, : Negative for injury, bleeding, discharge, and swelling, MS/Extremity: Negative for injury and deformity, Skin: Negative for injury, rash, and discoloration, Psych: Negative for depression, anxiety, suicide ideation, homicidal ideation, and hallucinations, Allergy/Immunology: Negative for hives, rash, and allergies, Endocrine: Negative for neck swelling, polydipsia, polyuria, polyphagia, and marked weight changes, Hematologic/Lymphatic: Negative for swollen nodes, abnormal bleeding, and unusual bruising. 14:12 Neuro: Positive for Lightheadedness. Exam: 14:15 Constitutional: This is a well developed, well nourished patient who is awake, alert, kdr and in no acute distress. Head/Face: Normocephalic, atraumatic. Eyes: Pupils equal round and reactive to light, extra-ocular motions intact. Lids and lashes normal. Conjunctiva and sclera are non-icteric and not injected. Cornea within normal limits. Periorbital areas with no swelling, redness, or edema. Neck: Trachea midline, no thyromegaly or masses palpated, and no cervical lymphadenopathy. Supple, full range of motion without nuchal rigidity, or vertebral point tenderness. No Meningismus. Chest/axilla: Normal chest wall appearance and motion. Nontender with no deformity. No lesions are appreciated. Cardiovascular: Regular rate and rhythm with a normal S1 and S2. No gallops, murmurs, or rubs. Normal PMI, no JVD. No pulse deficits. Respiratory: Lungs have equal breath sounds bilaterally, clear to auscultation and percussion. No rales, rhonchi or wheezes noted. No increased work of breathing, no retractions or nasal flaring. Abdomen/GI: Soft, non-tender, with normal bowel sounds. No distension or tympany. No guarding or rebound. No evidence of tenderness throughout. Back: No spinal tenderness. No costovertebral tenderness. Full range of motion. Skin: Warm, dry with normal turgor. Normal color with no rashes, no lesions, and no evidence of cellulitis. MS/ Extremity: Pulses equal, no cyanosis. Neurovascular intact. Full, normal range of motion. Neuro: Awake and alert, GCS 15, oriented to person, place, time, and situation. Cranial nerves II-XII grossly intact. Motor strength 5/5 in all extremities. Sensory grossly intact. Cerebellar exam normal. Normal gait. Psych: Awake, alert, with orientation to person, place and time. Behavior, mood, and affect are within normal limits. Vital Signs: 09:56 BP 119 / 62; Pulse 64; Resp 17; Temp 97.9; Pulse Ox 98% on R/A; Weight 73.48 kg; Height ab2 5 ft. 8 in. (172.72 cm); Pain 0/10; 10:35 BP 113 / 65; Pulse 58; Resp 16; Pulse Ox 99% on R/A; ab2 09:56 Body Mass Index 24.63 (73.48 kg, 172.72 cm) ab2 MDM: 10:59 Patient medically screened. kdr 14:15 Data reviewed: vital signs, nurses notes, lab test result(s), radiologic studies. kdr Counseling: I had a detailed discussion with the patient and/or guardian regarding: the historical points, exam findings, and any diagnostic results supporting the discharge/admit diagnosis, lab results, radiology results. 03/12 10:18 Order name: Vitamin B12 kdr Administered Medications: No medications were administered Disposition Summary: 03/12/22 10:59 Discharge Ordered Location: Home kdr Problem: new kdr Symptoms: have improved kdr Condition: Stable kdr Diagnosis - Weakness kdr - Lightheadedness kdr Followup: kdr - With: Kori Mccoy MD - When: 2 - 3 days - Reason: If symptoms return, Further diagnostic work-up, Recheck today's complaints, Continuance of care, Re-evaluation by your physician Discharge Instructions: - Discharge Summary Sheet kdr - Vitamin B12 and Folate Test kdr - Weakness, Oror-oz-Shfv kdr - Vitamin B12 Deficiency, Sggk-dm-Kxgh kdr Forms: - Medication Reconciliation Form kdr - Thank You Letter kdr Signatures: Dispatcher [employer] Dilan Bearden MD MD kdr Chandler Butler ab2
[2022-03-12 11:18] VITALS: TEMP 97.9
[2022-03-12 11:20] VITALS: BP 113/65; O2SAT 99
== END 2022-03-12 11:06 | disposition home or self-care (01) ==
LOC: ER 09:36
DX: R42 Dizziness and giddiness (principal); R53.1 Weakness; I10 Essential (primary) hypertension; E78.00 Pure hypercholesterolemia, unspecified; Z85.51 Personal history of malignant neoplasm of bladder; Z88.1 Allergy status to other antibiotic agents; Z88.3 Allergy status to other anti-infective agents
CPT/HCPCS: 36415; 82607; 99283

== ENCOUNTER 2022-07-01 21:12 | Emergency (ER) | payer OTHER ==
--- OUTSIDE RECORDS SUMMARY | 2022-07-01 21:15 | XMS REPORT | Continuity of Care Document ---
:1940 Author Organization [facility] t Address [address] [place] [address] Care Team Providers Name Role Phone MccoyKori Attending Clinician Unavailable LEAH LEZAMA Attending Clinician Unavailable Leah Lezama MD Attending Clinician LEAH LEZAMA Attending Clinician Unavailable LEAH LEZAMA Admitting Clinician Unavailable Payers Payer Name Policy Type Policy Number Effective Date Expiration Date S ource ERS MEDICARE [id number] 2020 ADVANTAGE PPO-UHC 00:00:00 [employer] MEDICARE [id number] ADVANTAGE PPO Problems Condition Condition Condition Status Onset Resolution Last Treating Co mments Source Name Details Category Date Date Treatment Clinician Date Encounter Encounter Disease Active Ulysses jennifer for for 22 College follow-up follow-up 00:00: of surveillan surveillan 00 Me dicin ce of ce of e 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 Ulysses jennifer neoplasm neoplasm 11-21 Colleg e of of 00:00: of overlappin overlappin 00 Me dicin g sites of g sites of e bladder bladder (HCCode) (HCCode) Allergies, Adverse Reactions, Alerts Allergy Allergy Status Severity Reaction(s) Onset Inactive Treating Comm ents Source Name Type Date Date Clinician Mey Zarate Active 2018-11 [facility] ty to 211 College adverse 00:00: of reaction 00 Medicin s to e drug Clarithr Adverse Active diarrhea, Comm on omycin Reaction bad taste, Spir it dizziness - [facility] Levaqedilson Adverse Active severe leg Com mon Reaction cramps [facility] Social History Social Habit Start Date Stop Date Quantity Comments Source Sex Assigned At [facility] llege of Medicine Tobacco Comment 2019-10-24 2019-10-24 7 [facility] l[facility] of 00:00:00 00:00:00 Medicine Smoking Status Start Date Stop Date Source Never smoker [facility] o f Medicine Medications Ordered Filled Start Stop Current Ordering Indication Dosage Frequency Signature Comments Components Source Medication Medication Date Date Medication? Clinician (SIG) Name Name Accu-Chek Accu-Chek Yes Na Mccoy as Common Claire Plus Claire Plus 09 directed Spirit 00:00: - [facility] sulfamethox 2018-11 Yes [id number] 1{tbl} Take 1 Tab [facility] azole-trime 12-25 by mouth Nikita ege thoprim 00:00: two times of (BACTRIM 00 daily. Medicin DS) 800-160 e MG per tablet Glucometer Glucometer Yes Na Mccoy one Common [facility] Levothyroxi Levothyroxi Yes Na Mccoy 1 tablet Common ne Sodium ne Sodium on an Spir it empty - [facility] stomach in [facility] Lancets Lancets Yes Na Mccoy as Common directed [facility] Accu-Chek Accu-Chek Yes Na Mccoy as Co mmon Softclix Softclix directed Spi rit Lancets Lancets - [facility] Meclizine Meclizine Yes Na Mccoy TAKE 1 Common HCl HCl TABLET BY Spirit MOUTH - [facility] THREE [facility] Mobic Mobic Yes Na Mccoy 1 tablet Common [facility] Euthyrox Euthyrox Yes Na Mccoy TAKE 1 Co mmon TABLET BY Spirit MOUTH ONCE - [facility] DAILY IN THE [facility] MORNING ON Medical AN EMPTY Center STOMACH EpiPen EpiPen Yes Na Mccoy not Common 2-Gerald 2-Gerald defined [facility] Olopatadine Olopatadine Yes Na Mccoy 2 sprays Common HCl HCl in each Spirit nostril [facility] Meclizine Meclizine Yes Na Mccoy TAKE 1 Common HCl HCl TABLET BY Spirit MOUTH 3 - [facility]I TIMES A [facility] Levothyroxi Levothyroxi Yes Na Mccoy 1 tablet Common ne Sodium ne Sodium on an Spir it empty - [facility] stomach in [facility] Cipro Cipro Yes Na Mccoy 1 tablet [facility] Augmentin Augmentin Yes Na Mccoy 1 tablet [facility] Crestor Crestor Yes Na Mccoy 1 tablet Co mmon [facility] Pantoprazol Pantoprazol Yes Na Mccoy 1 tablet Common e Sodium e Sodium [facility] blood blood Yes Na Mccoy as Common glucose glucose directed Spiri t test strip test strip - C [facility] Singulair Singulair Yes Na Mccoy 1 tablet [facility] Lisinopril Lisinopril Yes Na Mccoy 1 tablet [facility] Immunizations Ordered Immunization Filled Immunization Date Status Commen ts Source Name Name FluAD FluAD 2019-07-25 Completed [facility] 00:00:00 [facility] Vital Signs Vital Name Observation Time Observation Value Comments Source Systolic blood 2019-11-21 21:50:00 136 mm[Hg] [facility] Medicine Diastolic blood 2019-11-21 21:50:00 76 mm[Hg] [facility] Medicine Heart rate 2019-11-21 21:50:00 51 /min [facility] Body height 2019-11-21 21:50:00 172.7 cm [facility] Body weight 2019-11-21 21:50:00 72.576 kg [facility] BMI 2019-11-21 21:50:00 24.33 kg/m2 [facility] Systolic blood 2019-11-21 21:50:00 136 mm[Hg] [facility] Medicine Diastolic blood 2019-11-21 21:50:00 76 mm[Hg] [facility] Medicine Heart rate 2019-11-21 21:50:00 51 /min [facility] Body height 2019-11-21 21:50:00 172.7 cm [facility] Body weight 2019-11-21 21:50:00 72.576 kg [facility] BMI 2019-11-21 21:50:00 24.33 kg/m2 [facility] Procedures Procedure Date / Time Performed Performing Clinician Sour e CULTURE, 2019-11-22 14:56:00 Leah Lezama [facility] Nikita ege of URINE/SENSITIVITY ON Medicine ALL Plan of Care Planned Activity Planned Date Details Comments Source Future Scheduled Test TETANUS SHOT (ADULT) [facility] [code = TETANUS SHOT Medicin e (ADULT)] Future Scheduled Test FALL SCREEN [code = [facility] FALL SCREEN] Medicine Future Scheduled Test PNEUMOVAX >=65 [facility] (PPSV23) [code = Medicine PNEUMOVAX >=65 (PPSV23)] Future Scheduled Test PREVNAR >= 65 (PCV13) [facility] [code = PREVNAR >= 65 Medici ne (PCV13)] Future Scheduled Test MEDICARE AWV [facility] (Initial) [code = Medicine MEDICARE AWV (Initial)] Future Scheduled Test FLU VACCINE > 6 [facility] of MONTHS [code = FLU Medicine VACCINE > 6 MONTHS] Encounters Start End Encounter Admission Attending Care Care Encounter Source Date/Time Date/Time Type Type Clinicians Facility Department ID 2022-06-23 [facility] [id number] Common 10:50:01 [facility] 2022-05-31 [facility] [id number] Common 08:13:01 [facility] 2022-04-01 [facility] [id number] Common 13[facility]48:05 [facility] 2022-03-02 [facility] [id number] Common 16:19:00 [facility] 2022-02-08 [facility] [id number] Common 08:34:01 [facility] 2021-12-10 Outpatient Mccoy, Na [facility] [id number] Common 15:36:00 [facility] 2021-12-09 Outpatient Mccoy, Na [facility] [id number] 2 Common 14:24:20 [id number] [facility] 2021-12-09 Outpatient Mccoy, Na [facility] [id number] Common 14:15:28 [id number] [facility] 2021-12-09 Outpatient Mccoy, Na [facility] [id number] 2 Common 13:14:42 [id number] [facility] 2021-12-09 Outpatient Mccoy, Na [facility] [id number] 2 Common 13:05:10 [id number] [facility] 2021-12-09 Outpatient Mccoy, Na [facility] [id number] Common 12:49:56 [id number] [facility] 2021-12-09 Outpatient Mccoy, Na [facility] [id number] Common 12:36:00 [id number] [facility] 2021-12-09 Outpatient Mccoy, Na [facility] [id number] 2 Common 12:33:13 [id number] [facility] 2021-12-09 Outpatient Mccoy, Na [facility] [id number] 2 Common 12:32:16 [id number] [facility] 2021-12-09 Outpatient Mccoy, Na [facility] [id number] 2 Common 12:11:40 [id number] [facility] 2021-12-09 Outpatient Mccoy, Na [facility] [id number] 2 Common 12:07:56 [id number] [facility] 2021-12-09 Outpatient Mccoy, Na [facility] [id number] 2 Common 11:43:48 [id number] [facility] 2021-12-09 Outpatient Mccoy, Na [facility] [id number] 2 Common 11:39:42 [id number] [facility] 2022-06-29 2022-06-29 ambulatory [facility] [id number] Common 00:00:00 00:00:00 [facility] 2022-06-23 2022-06-23 ambulatory [facility] [id number] Common 00:00:00 00:00:00 [facility] 2022-06-22 2022-06-22 ambulatory [facility] [id number] Common 00:00:00 00:00:00 [facility] 2022-06-02 2022-06-02 ambulatory [facility] [id number] Common 00:00:00 00:00:00 [facility] 2022-06-02 2022-06-02 ambulatory [facility] [id number] Common 00:00:00 00:00:00 [facility] 2022-04-02 2022-04-02 ambulatory [facility] [id number] Common 00:00:00 00:00:00 [facility] 2022-04-01 2022-04-01 ambulatory [facility] [id number] Common 00:00:00 00:00:00 [facility] 2022-03-24 2022-03-24 ambulatory [facility] ST[facility] [id number] Common 00:00:00 00:00:00 [facility] 2022-03-19 2022-03-19 ambulatory [facility] [id number] Common 00:00:00 00:00:00 [facility] 2022-03-12 2022-03-12 ambulatory [facility] ST[facility] [id number] Common 00:00:00 00:00:00 [facility] 2022-03-08 2022-03-08 ambulatory [facility] [id number] Common 00:00:00 00:00:00 [facility] 2022-03-04 2022-03-04 ambulatory [facility] ST[facility] [id number] Common 00:00:00 00:00:00 [facility] 2022-03-02 2022-03-02 ambulatory [facility] ST[facility] [id number] Common 00:00:00 00:00:00 [facility] 2022-02-10 2022-02-10 ambulatory [facility] [id number] Common 00:00:00 00:00:00 [facility] 2022-02-10 2022-02-10 ambulatory [facility] [id number] Common 00:00:00 00:00:00 [facility] 2022-01-27 2022-01-27 Outpatient [facility] BCM [id number] [facility] 08:30:50 11:41:46 [facility] e 2022-01-27 2022-01-27 Outpatient LEZAMA, [facility] BC [id number] [facility] 08:31:18 10:42:49 LEAH Nikita ege of Medicin e 2022-01-14 2022-01-14 ambulatory [facility] [id number] Common 00:00:00 00:00:00 [facility] 2021-10-29 2021-10-29 ambulatory [facility] [id number] Common 00:00:00 00:00:00 [facility] 2021-10-21 2021-10-21 Outpatient TEJA, [facility] [id number] [facility] 09:21:49 10:40:52 LEAH Nikita ege of Medicin e 2021-10-21 2021-10-21 ambulatory [facility] [id number] Common 00:00:00 00:00:00 [facility] 2021-10-02 2021-10-02 ambulatory [facility] [id number] Common 00:00:00 00:00:00 [facility] 2021-10-01 2021-10-01 ambulatory [facility] [id number] Common 00:00:00 00:00:00 [facility] 2021-08-19 2021-08-19 Outpatient [facility] [id number] Common 00:00:00 00:00:00 [facility] 2021-07-30 2021-07-30 Outpatient [facility] [id number] Common 00:00:00 00:00:00 [facility] 2021-07-13 2021-07-13 Outpatient [facility] [id number] Common 00:00:00 00:00:00 [facility] 2021-07-08 2021-07-08 Outpatient DONI LEZAMA [facility] [id number] [facility] 10:18:53 11:40:29 LEAH Nikita ege of Medicin e 2021-07-06 2021-07-06 Outpatient [facility] [id number] Common 00:00:00 00:00:00 [facility] 2021-07-01 2021-07-01 Outpatient [facility] [id number] Common 00:00:00 00:00:00 [facility] 2021-06-01 2021-06-01 Outpatient [facility] [id number] Common 00:00:00 00:00:00 [facility] 2021-04-29 2021-04-29 Outpatient [facility] [id number] Common 00:00:00 00:00:00 [facility] 2021-03-10 2021-03-10 Outpatient [facility] [id number] Common 00:00:00 00:00:00 [facility] 2021-03-05 2021-03-05 Outpatient [facility] [id number] Common 00:00:00 00:00:00 [facility] 2021-02-17 2021-02-17 Outpatient [facility] [id number] Common 00:00:00 00:00:00 [facility] 2021-02-16 2021-02-16 Outpatient [facility] [id number] Common 00:00:00 00:00:00 [facility] 2021-02-12 2021-02-12 Outpatient [facility] [id number] Common 00:00:00 00:00:00 [facility] 2021-02-11 2021-02-11 Outpatient [facility] [id number] Common 00:00:00 00:00:00 [facility] 2021-01-21 2021-01-21 Outpatient [facility] [id number] Common 00:00:00 00:00:00 [facility] 2021-01-02 2021-01-02 Outpatient [facility] [id number] Common 00:00:00 00:00:00 [facility] 2020-10-24 2020-10-24 Outpatient [facility] [id number] Common 00:00:00 00:00:00 [facility] 2020-10-07 2020-10-07 Outpatient [facility] [id number] Common 00:00:00 00:00:00 [facility] 2020-10-07 2020-10-07 Outpatient [facility] [id number] Common 00:00:00 00:00:00 [facility] 2020-10-07 2020-10-07 Outpatient [facility] [id number] Common 00:00:00 00:00:00 [facility] 2020-08-27 2020-08-27 Outpatient [facility] [id number] Common 00:00:00 00:00:00 [facility] 2020-07-23 2020-07-23 [facility] [id number] Common 08:40:00 08:40:[address] [facility] 2020-07-22 2020-07-22 [facility] [id number] Common 17:01:00 17:01:[address] [facility] 2020-07-07 2020-07-07 [facility] [id number] Common 16:22:00 16:22:[address] [facility] 2020-07-04 2020-07-04 [facility] [id number] Common 11:20:00 11:20:[address] [facility] 2020-07-04 2020-07-04 [facility] [id number] Common 08:10:00 08:10:[address] [facility] 2020-04-22 2020-04-22 [facility] [id number] Common 13:20:00 13:20:[address] [facility] 2019-11-21 2019-11-21 Office Lezama, [facility] [id number] [facility] 14:51:13 16:43:49 Visit Leah AMBULATOR [id number] College Y [id number] [facility] 300 e 2019-11-21 2019-11-21 Office Lezama, [facility] [id number] 14:51:13 16:43:49 Visit Leah AMBULATOR [id number] Y [id number] 2019-10-23 2019-10-23 [facility] [id number] Common 13:20:00 13:20:[address] [facility] 2019-08-02 2019-08-02 [facility] [id number] Common 10:02:00 10:02:[address] [facility] 2019-07-25 2019-07-25 [facility] [id number] Common 09:40:00 09:40:[address] [facility] 2019-05-22 2019-05-22 Out[facility] [id number] Common 09:20:00 09:20:[address] [facility] 2019-04-24 2019-04-24 [facility] [id number] Common 09:40:00 09:40:[address] [facility] 2019-02-01 2019-02-01 Out[facility] [id number] Common 09:30:00 09:30:[address] [facility] 2019-01-16 2019-01-16 [facility] [id number] Common 09:25:00 09:25:[address] [facility] 2018-12-18 2018-12-18 [facility] [id number] Common 13:34:00 13:34:[address] [facility] 2018-12-18 2018-12-18 [facility] [id number] Common 09:00:00 09:00:[address] [facility] 2018-12-15 2018-12-15 [facility] [id number] Common 10:47:00 10:47:[address] [facility] 2018-10-24 2018-10-24 [facility] [id number] Common 08:30:00 08:30:[address] [facility] Results Test Description Test Time Test Comments Results Result Comments Source CULTURE, URINE/SENSITIVITY ON ALL 2019-11-24 12:08:02 Test Item Value Reference Range Interpretation Comme nts CULTURE, URINE/SENSITIVITY ON SPECIMEN NUMBER: CULTURE, URINE/SENSITIVITY ALL (test code = 2236) [id number] ON AL L SPECIMEN NUMBER: [id number] SPECI MEN COMMENT: URINE SOURCE: U RINE REPORT STATUS: FINAL F INAL REPORT: 11/24/2019 NO G ROWTH AFTER 36 HOURS INCUBATIO N Unless Otherwise Indic ated, All Testing Perform ed At: Clinical [facility]ol [facility], [address] [place] [address] 2773 4 Peer Counselor: Elliott Singh [id number] [place] [id number] [id number] 17:32:00Surgical Pathology Report Case: [id number] Authorizing Provider: Leah Lezama MD Collected: 10/30/2019 1037 Ordering Location: [facility] PERI[facility] Received: 10/31/2019 0846 SERVICES Pathologist: Yan [...] INVOLVED BY TUMOR Signing Pathologist Direct Phone Line:[phone] signed by Yan Hays MD on 11/02/2019 at 5:32 PMThe invasive component represents no more than 5% of the total tumor mass. [id number] X 2Preoperative and postoperative diagnoses: bladder tumorA. [...] name, accession number and "urinary bladder, TUR tissue,right lateral wall tumor-base of tumor" is a 2.5 x 1.5 x 0.4 cm aggregate of irregular ware-red to ware-pink rubbery tissue fragments admixed with blood clot. The specimen entirely submitted in cassettesB1-AB. JG/ewPerformed. POCT-GLUCOSE [id number] 06:24:00 Test Item Value Reference Range Interpretation Comments POC-GLUCOSE METER 76 mg/dL 70-110 : TESTED A T [facility] 6720 (CHANDLER) (test code = JANASHLEY COLES [place], 1538) 06629: Rocket Engine Tester/Techni jordana ID = [id number] for SEBASTIAN VALLE PH
[2022-07-01 21:54] LABS: Urine Blood Negative (Negative); Urine Glucose Negative (Negative); Urine Protein Negative (Negative)
--- NOTE | 2022-07-01 22:01 | ER ---
Nurse's Notes [facility] Name: Noah Whyte Age: 81 yrs Sex: Male : 1940 Arrival Date: 07/01/2022 Time: 21:15 Bed Waiting Private MD: Diagnosis: Essential (primary) hypertension Presentation: 07/01 21:26 Chief complaint: Patient states: Pt reports intermittently "feeling unwell" for a kb3 couple of weeks. Checked BP tonight and it was elevated SBP 154-169. Took an extra 2.5mg amlodipine as directed by physician for SBP>140. Denies CP, SOB. Pt reports feeling very anxious. Coronavirus screen: Vaccine status: Patient reports receiving the 2nd dose of the covid vaccine. Client denies travel out of the [place] in the last 14 days. At this time, the client does not indicate any symptoms associated with coronavirus-19. Ebola Screen: Patient negative for fever greater than or equal to 101.5 degrees Fahrenheit, and additional compatible Ebola Virus Disease symptoms Patient denies exposure to infectious person. Patient denies travel to an Ebola-affected area in the 21 days before illness onset. No symptoms or risks identified at this time. Initial Sepsis Screen: Does the patient meet any 2 criteria? No. Patient's initial sepsis screen is negative. Does the patient have a suspected source of infection? No. Patient's initial sepsis screen is negative. Risk Assessment: Do you want to hurt yourself or someone else? Patient reports no desire to harm self or others. 21:26 Method Of Arrival: Ambulatory 3 21:26 Acuity: JAIMIE 3 kb3 21:26 Onset of symptoms was July 01, 2022 at 17:00. kb3 Triage Assessment: 21:30 General: Appears in no apparent distress. comfortable. General: Behavior is calm, kb3 cooperative. Pain: Denies pain. Cardiovascular: Reports feeling anxious with elevated BP Denies chest pain, diaphoresis, fatigue, lightheadedness, nausea, palpitations. GI: Patient currently denies normal bowel habits. 21:33 General: Pt also reporting slight headache and mild heartburn. Denies numbness, kb3 tingling, weakness. Gait steady, no ataxia noted. Historical: - Allergies: 21:30 Clarithromycin; kb3 21:30 Levofloxacin; kb3 - PMHx: 21:30 Anemia; Bladder Tumor - Cancer; GERD; High Cholesterol; Hypertension; Hypothyroidism; kb3 Vertigo; - PSHx: 21:30 cataract repair; TURP; kb3 - Immunization history:: Adult Immunizations up to date, Client reports receiving the 2nd dose of the Covid vaccine, Last tetanus immunization: up to date. - Social history:: Smoking status: Patient denies any tobacco usage or history of. Patient/guardian denies using alcohol, street drugs. - Family history:: not pertinent. - Hospitalizations: : No recent hospitalization is reported. Screenin:54 Abuse screen: Denies threats or abuse. Denies injuries from another. Nutritional kb3 screening: No deficits noted. Tuberculosis screening: No symptoms or risk factors identified. 22:06 Fall Risk None identified. kb3 Assessment: 21:54 Reassessment: No changes from previously documented assessment. General: See triage kb3 note. Pain: Denies pain. 22:06 GI: Bowel sounds present X 4 quads. Abd is soft and non tender. kb3 Vital Signs: 21:26 BP 164 / 89; Pulse 62; Resp 18; Temp 98.4; kb3 21:26 Pulse Ox 100% ; Weight 73.03 kg; Height 5 ft. 8 in. (172.72 cm); Pain 0/10; kb3 21:26 Body Mass Index 24.48 (73.03 kg, 172.72 cm) kb3 ED Course: 21:15 Patient arrived in ED. ja2 21:21 Zaire Alvarez MD is Attending Physician. rn 21:30 Triage completed. kb3 21:30 Arm band placed on left wrist. Patient MD assessing pt in triage. kb3 21:54 Patient has correct armband on for positive identification. kb3 21:54 No provider procedures requiring assistance completed. kb3 22:06 Patient did not have IV access during this emergency room visit. kb3 Administered Medications: No medications were administered Medication: 21:54 VIS not applicable for this client. kb3 Outcome: 22:01 Discharge ordered by . rn 22:06 Discharged to home ambulatory. kb3 22:06 Condition: stable 22:06 Discharge instructions given to patient, significant other, Instructed on discharge instructions, follow up and referral plans. Demonstrated understanding of instructions, follow-up care. 22:07 Patient left the ED. kb3 Signatures: Zaire Alvarez MD MD rn Leydi Cunningham Kelly, KORI RN kb3
--- NOTE | 2022-07-01 22:01 | EDPHYS ---
Physician Documentation [facility] Name: Noah Whyte Age: 81 yrs Sex: Male : 1940 Arrival Date: 07/01/2022 Time: 21:15 Bed Waiting Private MD: ED Physician Zaire Alvarez HPI: 07/01 21:44 This 81 yrs old Male presents to ER via Ambulatory with complaints of Blood Pressure rn Problem. 21:44 Pt reports checked BP today and was elevated, in 160s range, told to take small dose of rn amlodipine in these situations, did so, with improvement of blood pressure. Tried to go to sleep but was feeling anxious about his blood pressure and wanted to come in to make sure he was ok. Denies focal neuro complaints/headache/chest pain/abd pain. No syncope. . Onset: The symptoms/episode began/occurred today. Severity of symptoms: At their worst the symptoms were moderate in the emergency department the symptoms have improved. The patient has experienced similar episodes in the past. The patient has not recently seen a physician. Historical: - Allergies: 21:30 Clarithromycin; kb3 21:30 Levofloxacin; kb3 - PMHx: 21:30 Anemia; Bladder Tumor - Cancer; GERD; High Cholesterol; Hypertension; Hypothyroidism; kb3 Vertigo; - PSHx: 21:30 cataract repair; TURP; kb3 - Immunization history:: Adult Immunizations up to date, Client reports receiving the 2nd dose of the Covid vaccine, Last tetanus immunization: up to date. - Social history:: Smoking status: Patient denies any tobacco usage or history of. Patient/guardian denies using alcohol, street drugs. - Family history:: not pertinent. - Hospitalizations: : No recent hospitalization is reported. ROS: 21:44 Constitutional: Negative for fever, chills, and weight loss, Eyes: Negative for injury, rn pain, redness, and discharge, Neck: Negative for injury, pain, and swelling, Cardiovascular: Negative for chest pain, palpitations, and edema, Respiratory: Negative for shortness of breath, cough, wheezing, and pleuritic chest pain, Abdomen/GI: Negative for abdominal pain, nausea, vomiting, diarrhea, and constipation, Back: Negative for injury and pain, MS/Extremity: Negative for injury and deformity, Skin: Negative for injury, rash, and discoloration, Neuro: Negative for headache, weakness, numbness, tingling, and seizure. Exam: 21:44 Constitutional: This is a well developed, well nourished patient who is awake, alert, rn and in no acute distress. Head/Face: Normocephalic, atraumatic. Eyes: Pupils equal round and reactive to light, extra-ocular motions intact. Cardiovascular: Regular rate and rhythm. No pulse deficits. Respiratory: No increased work of breathing, no retractions or nasal flaring. Abdomen/GI: Soft, non-tender Skin: Warm, dry MS/ Extremity: Pulses equal, no cyanosis. Neuro: Awake and alert, GCS 15, oriented to person, place, time, and situation. Cranial nerves II-XII grossly intact. Motor strength 5/5 in all extremities. Sensory grossly intact. Cerebellar exam normal. Vital Signs: 21:26 BP 164 / 89; Pulse 62; Resp 18; Temp 98.4; kb3 21:26 Pulse Ox 100% ; Weight 73.03 kg; Height 5 ft. 8 in. (172.72 cm); Pain 0/10; kb3 21:26 Body Mass Index 24.48 (73.03 kg, 172.72 cm) kb3 MDM: 21:21 Patient medically screened. rn 21:58 Differential Diagnosis UTI, hypertension. Data reviewed: vital signs, nurses notes, old rn medical records, lab test result(s), and as a result, I will discharge patient. Counseling: I had a detailed discussion with the patient and/or guardian regarding: the historical points, exam findings, and any diagnostic results supporting the discharge/admit diagnosis, lab results, the need for outpatient follow up, to return to the emergency department if symptoms worsen or persist or if there are any questions or concerns that arise at home. Response to treatment: the patient's symptoms have markedly improved after treatment, and as a result, I will discharge patient. Special discussion: I discussed with the patient/guardian in detail that at this point there is no indication for admission to the hospital. It is understood, however, that if the symptoms persist or worsen the patient needs to return immediately for re-evaluation. Based on the history and exam findings, there is no indication for further emergent testing or inpatient evaluation. I discussed with the patient/guardian the need to see the primary care provider for further evaluation of the symptoms. ED course: Pt feels much better after our discussion about hypertension, normal neuro exam, no focal complaints, no chest pain/sob/abd pain. Reported increase in urinary frequency so UA obtained, is normal. Recommend continuation of BP diary and pcp f/u.. 07/01 21:54 Order name: Urine Dipstick-Ancillary; Complete Time: 21:58 EDMS 07/01 21:44 Order name: Urine Dipstick-Ancillary (obtain specimen); Complete Time: 21:59 rn Administered Medications: No medications were administered Disposition Summary: 07/01/22 22:01 Discharge Ordered Location: Home rn Problem: new rn Symptoms: have improved rn Condition: Stable rn Diagnosis - Essential (primary) hypertension rn Followup: rn - With: Private Physician - When: As needed - Reason: Recheck today's complaints, Re-evaluation by your physician Discharge Instructions: - Discharge Summary Sheet rn - Hypertension, Adult rn - How to Take Your Blood Pressure, [id number] rn - Managing Your Hypertension rn Forms: - Medication Reconciliation Form rn - Thank You Letter rn - Antibiotic speech language pathologist prn - Prescription Opioid Use rn Signatures: Zaire Alvarez MD MD rn Bradberry, Kelly, RN RN kb3
[2022-07-01 23:54] VITALS: BP 164/89; TEMP 98.4; O2SAT 100
== END 2022-07-01 22:07 | disposition home or self-care (01) ==
LOC: ER 21:12
DX: I10 Essential (primary) hypertension (principal); Z85.51 Personal history of malignant neoplasm of bladder; Z88.1 Allergy status to other antibiotic agents; Z88.3 Allergy status to other anti-infective agents
CPT/HCPCS: 81003; 99281

== ENCOUNTER 2022-10-08 20:52 | Emergency (ER) | payer OTHER ==
--- OUTSIDE RECORDS SUMMARY | 2022-10-08 21:04 | XMS REPORT | Continuity of Care Document ---
:1940 Author Organization [facility] t Address [address] [place] [address] Care Team Providers Name Role Phone Kori Mccoy DO Primary Care Physician Kori Mccoy Attending Clinician Unavailable LEAH LEZAMA Attending Clinician Unavailable Leah Lezama MD Attending Clinician LEAH LEZAMA Attending Clinician Unavailable LEAH LEZAMA Admitting Clinician Unavailable Payers Payer Name Policy Type Policy Number Effective Date Expiration Date S malika [facility] [employer] 1 [id number] 2022 Common TRS/ERS MCR PPO 00:00:00 [facility] ERS MEDICARE [id number] 2020 ADVANTAGE PPO-[facility] 00:00:00 CB MEDICARE [id number] [facility] PPO Problems Condition Condition Condition Status Onset Resolution Last Treating Co mments Source Name Details Category Date Date Treatment Clinician Date Encounter Encounter Disease Active Diamond jennifer for for 22 College follow-up follow-up 00:00: of surveillan surveillan 00 Me dicin ce of ce of e 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 11-21 Colleg e of of 00:00: of overlappin overlappin 00 Me dicin g sites of g sites of e bladder bladder (HCCode) (HCCode) Bladder Bladder Disease Active 2018-11 [facility] tumor tumor 12-31 [facility] 00:00: Medical 00 Center Prediabete Prediabete Problem C ommon s s Spirit - [facility] [id number] Acute Problem Common right-side Spirit d back - [facility]I pain with sciatica [facility] 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 - [facility] osteoarthr [facility]osteo[id number] Gastro-eso Problem Co mmon phageal Spirit reflux - [facility] disease [facility] esophagiti Medica l s Center Hypertensi HTN Problem Commo n on (hypertens Spirit ion) - [facility] Allergic Allergic Problem Commo n rhinitis rhinitis, Spiri t unspecifie - CHI d [facility] y, Medical unspecifie Center d trigger History of History of Problem C ommon insect insect Spirit sting sting - [facility]I allergy allergy [facility] Hyperlipid Hyperlipid Problem C ommon emia emia [facility] [id number] Dizziness Problem Com mon [facility] [id number] Leukocytop Problem Com mon enia, Spirit unspecifie - CHI d [facility] Iron Iron Problem Common deficiency deficiency Sp kacy anemia anemia, - CHI unspecifie [facility] iron [facility] deficiency Medica l anemia Center type [id number] Controlled Problem Co mmon type 2 Spirit diabetes - [facility] mellitus [facility] complicati Medica l on, Center without long-term current use of insulin [id number] Lymphangit Problem Comm on is Spirit - [facility] [id number] Mass of Problem Commo n urinary Spirit bladder - [facility] [id number] Medication Problem Co mmon side Spirit effect - [facility] [id number] Serum Problem Common total [facility] 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 y tract - [facility] infection, [facility] d [facility] Chronic Chronic Problem Common fatigue fatigue [facility] syndrome - [facility] [id number] Adult Problem Common general [facility] 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 - [facility] [id number] Urothelial Problem Co mmon carcinoma Spirit of bladder - [facility] [id number] Lumbago Problem Commo n with Spirit sciatica, - CHI left side [facility] [id number] Lumbago Problem Comm on with Spirit sciatica, - CHI right side [facility] [id number] Dupuytren Problem Com mon contractur Spirit e - [facility] [id number] Pernicious Problem Com mon anemia [facility] [id number] Diverticul Problem Co mmon osis [facility] Sciatica Back pain Problem Comm on with Spirit left-sided - CHI sciatica [facility] [id number] 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 - [facility] spine [facility] Allergies, Adverse Reactions, Alerts Allergy Allergy Status Severity Reaction(s) Onset Inactive Treating Comm ents Source Name Type Date Date Clinician Levoflox Drug Active 2018-[address] [facility] [address] acin Intolera 12-25 [facility] [place] Levaquin Propensi Active 2018-11 [facility] ty to 2-11 College adverse 00:00: of reaction 00 Medicin s to e drug clarithr clarithr Active diarrhea, Com mon omycin omycin bad taste, Spirit dizziness [facility] [id number] Drug Active severe leg Common allergy cramps [facility] Social History Social Habit Start Date Stop Date Quantity Comments Source History of Common [facility] - Tobacco Use [facility] Alcohol intake 2019-10-31 2019-10-31 Current drinker [facility]:00 of alcohol Medical Center (finding) Tobacco use and 2019-10-29 2019-10-29 Never used [facility] exposure 00:00:00 00:00:00 Medical [place] Tobacco Comment 2019-10-24 2019-10-24 7 [facility] Co llege 00:00:00 00:00:00 of Medicine Sex Assigned At [birth year] [facility] 00:00:00 00:00:00 [facility] Smoking Status Start Date Stop Date Source Never Smoker [facility] Medications Ordered Filled Start Stop Current Ordering Indication Dosage Frequency Signature Comments Components Source Medication Medication Date Date Medication? Clinician (SIG) Name Name Donovan Luigiap 2021- No 1{table QD Cyclobenza rine HCl 5 rine HCl 5 07-13 t_at_be gulshan HCl MG MG 00:00: 00:00 dtime_a 5 MG 00 :00 s_neede d} Cyclobenzap Cyclobenzap 2021- No 1{table QD Cyclobenza rine HCl 5 rine HCl 5 07-13 t_at_be gulshan HCl MG MG 00:00: 00:00 dtime_a 5 MG 00 :00 s_neede d} Cyclobenzap Cyclobenzap 2021- No 1{table QD Cyclobenza rine HCl 5 rine HCl 5 07-13 t_at_be gulshan HCl MG MG 00:00: 00:00 dtime_a 5 MG 00 :00 s_neede d} Toradol Toradol 2021-0 No 15mg Common (Ketorolac) (Ketorolac) 8-10 S pirit 00:00: - CHI 00 [facility] Kenalog Kenalog 2021-0 No 40mg Common (Triamcinol (Triamcinol 8-10 S pirit one) one) 00:00: - CHI 00 [facility] Toradol Toradol 2021-0 No 15mg Common (Ketorolac) (Ketorolac) 8-10 S pirit 00:00: - CHI 00 [facility] Kenalog Kenalog 2021-0 No 40mg Common (Triamcinol (Triamcinol 8-10 S pirit one) one) 00:00: - CHI 00 [facility] Toradol Toradol 2021-0 No 15mg Common (Ketorolac) (Ketorolac) 8-10 S pirit 00:00: - CHI 00 [facility] Kenlorelei Kenalog 2021-0 No 40mg Common (Triamcinol (Triamcinol 8-10 S pirit one) one) 00:00: - CHI 00 [facility] Toradol Toradol 2021-0 No 15mg Common (Ketorolac) (Ketorolac) 8-10 S pirit 00:00: - CHI 00 [facility] Kenalog Kenalog 2021-0 No 40mg Common (Triamcinol (Triamcinol 8-10 S pirit one) one) 00:00: - CHI 00 [facility] Toradol Toradol 2021-0 No 15mg Common (Ketorolac) (Ketorolac) 8-10 S pirit 00:00: - CHI 00 [facility] Kenalog Kenalog 2021-0 No 40mg Common (Triamcinol (Triamcinol 8-10 S pirit one) one) 00:00: - CHI 00 [facility] Toradol Toradol 2021-0 No 15mg Common (Ketorolac) (Ketorolac) 8-10 S pirit 00:00: - CHI [facility] Kenalog Kenalog 2021-0 No 40mg Common (Triamcinol (Triamcinol 8-10 S pirit one) one) 00:00: - CHI 00 [facility] Toradol Toradol 2021-0 No 15mg Common (Ketorolac) (Ketorolac) 8-10 S pirit 00:00: - CHI 00 [facility] Kenalog Kenalog 2021-0 No 40mg Common (Triamcinol (Triamcinol 8-10 S pirit one) one) 00:00: - CHI 00 [facility] Toradol Toradol 2021-0 No 15mg Common (Ketorolac) (Ketorolac) 8-10 S pirit 00:00: - CHI 00 [facility] Kenalog Kenalog 2021-0 No 40mg Common (Triamcinol (Triamcinol 8-10 S pirit one) one) 00:00: - CHI 00 [facility] Toradol Toradol 2021-0 No 15mg Common (Ketorolac) (Ketorolac) 8-10 S pirit 00:00: - CHI 00 [facility] Kenalog Kenalog 2021-0 No 40mg Common (Triamcinol (Triamcinol 8-10 S pirit one) one) 00:00: - CHI 00 [facility] methylPREDN methylPREDN 2021-0 2- No QD methylPRED ISolone 4 ISolone 4 8-10 08-16 NISolone 4 MG MG 00:00: 00:00 MG 00 :00 methylPREDN methylPREDN 2021-0 2- No QD methylPRED ISolone 4 ISolone 4 8-10 08-16 NISolone 4 MG MG 00:00: 00:00 MG 00 :00 Celestone Celestone 2021-0 No 6mg Com mon Soluspan Soluspan 5-19 Spirit (Betamethas (Betamethas 00:00: - CHI one) one) 00 [facility] Celestone Celestone 2021-0 No 6mg Com mon Soluspan Soluspan 5-19 Spirit (Betamethas (Betamethas 00:00: - CHI one) one) 00 [facility] Lidocaine Lidocaine 2021-0 No 10mg Com mon 5-19 Spirit 00:00: - CHI 00 [facility] Lidocaine Lidocaine 2021-0 No 10mg Com mon 5-19 Spirit 00:00: - CHI 00 [facility] Celestone Celestone 2-0 No 6mg Com mon Soluspan Soluspan 5-19 Spirit (Betamethas (Betamethas 00:00: - CHI one) one) 00 [facility] Celestone Celestone 2-0 No 6mg Com mon Soluspan Soluspan 5-19 Spirit (Betamethas (Betamethas 00:00: - CHI one) one) 00 [facility] Lidocaine Lidocaine 2-0 No 10mg Com mon 5-19 Spirit 00:00: - CHI 00 [facility] Lidocaine Lidocaine 2-0 No 10mg Com mon 5-19 Spirit 00:00: - CHI 00 [facility] Celestone Celestone 2-0 No 6mg Com mon Soluspan Soluspan 5-19 Spirit (Betamethas (Betamethas 00:00: - CHI one) one) 00 [facility] Celestone Celestone 2-0 No 6mg Com mon Soluspan Soluspan 5-19 Spirit (Betamethas (Betamethas 00:00: - CHI one) one) 00 [facility] Lidocaine Lidocaine 2-0 No 10mg Com mon 5-19 Spirit 00:00: - CHI 00 [facility] Lidocaine Lidocaine 2-0 No 10mg Com mon 5- Spirit 00:00: - CHI 00 [facility] Celestone Celestone 2-0 No 6mg Com mon Soluspan Soluspan 5-19 Spirit (Betamethas (Betamethas 00:00: - CHI one) one) 00 [facility] Lidocaine Lidocaine 2-0 No 10mg Com mon 5-19 Spirit 00:00: - CHI 00 [facility] Lidocaine Lidocaine 2-0 No 10mg Com mon 5-19 Spirit 00:00: - CHI 00 [facility] Celestone Celestone 2-0 No 6mg Com mon Soluspan Soluspan 5-19 Spirit (Betamethas (Betamethas 00:00: - CHI one) one) 00 [facility] Celestone Celestone 2-0 No 6mg Com mon Soluspan Soluspan 5-19 Spirit (Betamethas (Betamethas 00:00: - CHI one) one) 00 [facility] Lidocaine Lidocaine 2-0 No 10mg Com mon 5- Spirit 00:00: - CHI 00 [facility] Lidocaine Lidocaine 2-0 No 10mg Com mon 5- Spirit 00:00: - CHI 00 [facility] Celestone Celestone 2-0 No 6mg Com mon Soluspan Soluspan 5-19 Spirit (Betamethas (Betamethas 00:00: - CHI one) one) 00 [facility] Celestone Celestone 2-0 No 6mg Com mon Soluspan Soluspan 5-19 Spirit (Betamethas (Betamethas 00:00: - CHI one) one) 00 [facility] Lidocaine Lidocaine 2-0 No 10mg Com mon - Spirit 00:00: - CHI 00 [facility] Lidocaine Lidocaine 2-0 No 10mg Com mon - Spirit 00:00: - CHI 00 [facility] Celestone Celestone 2-0 No 6mg Com mon Soluspan Soluspan 5-19 Spirit (Betamethas (Betamethas 00:00: - CHI one) one) 00 [facility] Celestone Celestone 2-0 No 6mg Com mon Soluspan Soluspan 5-19 Spirit (Betamethas (Betamethas 00:00: - CHI one) one) 00 [facility] Lidocaine Lidocaine 2-0 No 10mg Com mon - Spirit 00:00: - CHI 00 [facility] Lidocaine Lidocaine 2-0 No 10mg Com mon 5- Spirit 00:00: - CHI 00 [facility] Celestone Celestone 2-0 No 6mg Com mon Soluspan Soluspan 5-19 Spirit (Betamethas (Betamethas 00:00: - CHI one) one) 00 [facility] Celestone Celestone 2-0 No 6mg Com mon Soluspan Soluspan 5-19 Spirit (Betamethas (Betamethas 00:00: - CHI one) one) 00 [facility] Lidocaine Lidocaine 2-0 No 10mg Com mon - Spirit 00:00: - CHI 00 [facility] Lidocaine Lidocaine 2-0 No 10mg Com mon 5- Spirit 00:00: - CHI 00 [facility] Celestone Celestone 2021-0 No 6mg Com mon Soluspan Soluspan 5-19 Spirit (Betamethas (Betamethas 00:00: - CHI one) one) 00 [facility] Celestone Celestone 2021-0 No 6mg Com mon Soluspan Soluspan 5-19 Spirit (Betamethas (Betamethas 00:00: - CHI one) one) 00 [facility] Celestone Celestone 2021-0 No 6mg Com mon Soluspan Soluspan 5-19 Spirit (Betamethas (Betamethas 00:00: - CHI one) one) 00 [facility] Lidocaine Lidocaine 2-0 No 10mg Com mon 04-01 Spirit 00:00: - CHI 00 [facility] Lidocaine Lidocaine 2-0 No 10mg Com mon - Spirit 00:00: - CHI 00 [facility] Celestone Celestone 2-0 No 6mg Com mon Soluspan Soluspan 5-19 Spirit (Betamethas (Betamethas 00:00: - CHI one) one) 00 [facility] Celestone Celestone 2021-0 No 6mg Com mon Soluspan Soluspan 5-19 Spirit (Betamethas (Betamethas 00:00: - CHI one) one) 00 [facility] Lidocaine Lidocaine 2-0 No 10mg Com 04-01 Spirit 00:00: - CHI 00 [facility] Lidocaine Lidocaine 2-0 No 10mg Com mon 04-01 Spirit 00:00: - CHI 00 [facility] Celestone Celestone 2-0 No 6mg Com mon Soluspan Soluspan 5-19 Spirit (Betamethas (Betamethas 00:00: - CHI one) one) 00 [facility] Celestone Celestone 2-0 No 6mg Com mon Soluspan Soluspan 5-19 Spirit (Betamethas (Betamethas 00:00: - CHI one) one) 00 [facility] Lidocaine Lidocaine 2-0 No 10mg Com mon - Spirit 00:00: - CHI 00 [facility] Lidocaine Lidocaine 2021-0 No 10mg Com mon - Spirit 00:00: - CHI 00 [facility] Celestone Celestone 2021-0 No 6mg Com mon Soluspan Soluspan 5-19 Spirit (Betamethas (Betamethas 00:00: - CHI one) one) 00 [facility] Celestone Celestone 2021-0 No 6mg Com mon Soluspan Soluspan 5-19 Spirit (Betamethas (Betamethas 00:00: - CHI one) one) 00 [facility] Lidocaine Lidocaine 2021-0 No 10mg Com mon 04-01 Spirit 00:00: - CHI 00 [facility] Lidocaine Lidocaine 2021-0 No 10mg Com mon 04-01 Spirit 00:00: - CHI 00 [facility] Celestone Celestone 2021-0 No 6mg Com mon Soluspan Soluspan 5-19 Spirit (Betamethas (Betamethas 00:00: - CHI one) one) 00 [facility] Celestone Celestone 2021-0 No 6mg Com mon Soluspan Soluspan 5-19 Spirit (Betamethas (Betamethas 00:00: - CHI one) one) 00 [facility] Lidocaine Lidocaine 2021-0 No 10mg Com 04-01 Spirit 00:00: - CHI 00 [facility] Lidocaine Lidocaine 2021-0 No 10mg Com mon 04-01 Spirit 00:00: - CHI 00 [facility] Celestone Celestone 2021-0 No 6mg Com mon Soluspan Soluspan 5-19 Spirit (Betamethas (Betamethas 00:00: - CHI one) one) 00 [facility] Celestone Celestone 2021-0 No 6mg Com mon Soluspan Soluspan 5-19 Spirit (Betamethas (Betamethas 00:00: - CHI one) one) 00 [facility] Lidocaine Lidocaine 2021-0 No 10mg Com 04-01 Spirit 00:00: - CHI 00 [facility] Lidocaine Lidocaine 2021-0 No 10mg Com mon 04-01 Spirit 00:00: - CHI 00 [facility] Folic Acid Folic Acid 2021-0 2- No 1{table QD Folic Acid 1 MG 1 MG 5-06 11-02 t} 1 MG 00:00: 00:00 00 :00 Folic Acid Folic Acid 2022-0 2022- No 1{table QD Folic Acid 1 MG 1 MG 03-19 t} 1 MG 00:00: 00:00 00 :00 Folic Acid Folic Acid 2022-0 2022- No 1{table QD Folic Acid 1 MG 1 MG 03-19 t} 1 MG 00:00: 00:00 00 :00 Folic Acid Folic Acid 2022-0 2022- No 1{table QD Folic Acid 1 MG 1 MG 03-19 t} 1 MG 00:00: 00:00 00 :00 Folic Acid Folic Acid 2022-0 2022- No 1{table QD Folic Acid 1 MG 1 MG 03-19 t} 1 MG 00:00: 00:00 00 :00 Folic Acid Folic Acid 2022-0 2022- No 1{table QD Folic Acid 1 MG 1 MG 03-19 t} 1 MG 00:00: 00:00 00 :00 Folic Acid Folic Acid 2022-0 2022- No 1{table QD Folic Acid 1 MG 1 MG 03-19 t} 1 MG 00:00: 00:00 00 :00 Folic Acid Folic Acid 2022-0 2022- No 1{table QD Folic Acid 1 MG 1 MG 03-19 t} 1 MG 00:00: 00:00 00 :00 Folic Acid Folic Acid 2022-0 2022- No 1{table QD Folic Acid 1 MG 1 MG 03-19 t} 1 MG 00:00: 00:00 00 :00 Folic Acid Folic Acid 2022-0 2022- No 1{table QD Folic Acid 1 MG 1 MG 03-19 t} 1 MG 00:00: 00:00 00 :00 Folic Acid Folic Acid 2022-0 2022- No 1{table QD Folic Acid 1 MG 1 MG 03-19 t} 1 MG 00:00: 00:00 00 :00 Folic Acid Folic Acid 2022-0 2022- No 1{table QD Folic Acid 1 MG 1 MG 03-19 t} 1 MG 00:00: 00:00 00 :00 Folic Acid Folic Acid 2022-0 2022- No 1{table QD Folic Acid 1 MG 1 MG 03-19 t} 1 MG 00:00: 00:00 00 :00 Folic Acid Folic Acid 2021- No 1{table QD Folic Acid 1 MG 1 MG 03-19 t} 1 MG 00:00: 00:00 00 :00 Flomax 0.4 Flomax 0.4 2020- No 1{capsu QD Flomax 0.4 MG MG 3-10 08-19 le} MG 00:00: 00:00 00 :00 Accu-Chek Accu-Chek Yes Na Mccoy as Common Claire Plus Claire Plus 04-22 directed Spirit 00:00: - [facility]I 00 [facility] lisinopril 2018-11 Yes 40mg QD Take [address] (PRINIVIL,Z 2-17 by mouth [facility] ESTRIL) 40 18:08: daily. Medic al MG tablet [address] [place] [address] rosuvastati 2018-11 Yes 40mg QD Take [address] n (CRESTOR) 2-17 by mouth Luke s 40 MG 18:08: daily. Medical tablet [address] [place] [address] pantoprazol 2018-11 Yes 40mg QD Take [address] [facility] 2-17 by mouth [facility] (PROTONIX) 18:08: daily. Medic al [address] [place] [address] tablet levothyroxi 2018-11 Yes QD Take by [facility] ne 25 mcg 2-17 mouth [facility] Cap 18:08: daily . [address] montelukast 2018-11 Yes 10mg QD Take [address] (SINGULAIR) 2-17 by mouth Luke s 10 mg 18:08: nightly. Medical tablet [address] [place] [address] meclizine 2018-11 Yes 25mg QD Take [address] (ANTIVERT) 2-17 by mouth [facility] 25 MG 18:08: daily. Medical tablet 13 [place] Missing or 2018-[address]esium [facility] Non-Formula 2-17 100mg QID, Grace kes ry 18:08: Zinc 50mg Medical Medication 13 daily, Center Coenzyme 10 BID, Vit D2 1000u daily, Align probiotic, Chromium 200mg daily, Areds 2caps daily. sulfamethox 2018-11 Yes [id number] 1{tbl} Take 1 Tab [facility] azole-trime 2-11 by mouth Nikita ege thoprim 00:00: two times of (BACTRIM 00 daily. Medicin DS) 800-160 e MG per tablet Ken[place]lei Kenalog 2018-0 No 40mg Common (Triamcinol (Triamcinol 3-06 S pirit one) one) 00:00: - CHI 00 [facility] Kenalog Kenalog 2018-0 No 40mg Common (Triamcinol (Triamcinol 3-06 S pirit one) one) 00:00: - CHI 00 [facility] Kenalog Kenalog 2018-0 No 40mg Common (Triamcinol (Triamcinol 3-06 S pirit one) one) 00:00: - CHI 00 [facility] Kenalog Kenalog 2018-0 No 40mg Common (Triamcinol (Triamcinol 3-06 S pirit one) one) 00:00: - CHI 00 [facility] Kenalog Kenalog 2018-0 No 40mg Common (Triamcinol (Triamcinol 3-06 S pirit one) one) 00:00: - CHI 00 [facility] Kenalog Kenalog 2018-0 No 40mg Common (Triamcinol (Triamcinol 3-06 S pirit one) one) 00:00: - CHI 00 [facility] Kenalog Kenalog 2018-0 No 40mg Common (Triamcinol (Triamcinol 3-06 S pirit one) one) 00:00: - CHI 00 [facility] Kenalog Kenalog 2018-0 No 40mg Common (Triamcinol (Triamcinol 3-06 S pirit one) one) 00:00: - CHI 00 [facility] Kenalog Kenalog 2018-0 No 40mg Common (Triamcinol (Triamcinol 3-06 S pirit one) one) 00:00: - CHI 00 [facility] Kenalog Kenalog 2018-0 No 40mg Common (Triamcinol (Triamcinol 3-06 S pirit one) one) 00:00: - CHI 00 [facility] Kenalog Kenalog 2018-0 No 40mg Common (Triamcinol (Triamcinol 3-06 S pirit one) one) 00:00: - CHI 00 [facility] Kenalog Kenalog 2018-0 No 40mg Common (Triamcinol (Triamcinol 3-06 S pirit one) one) 00:00: - CHI 00 [facility] Mimi Kenalog 2017-0 No 40mg Common (Triamcinol (Triamcinol 3-06 S pirit one) one) 00:00: - CHI 00 [facility] Mimi Kenlorelei 2017-0 No 40mg Common (Triamcinol (Triamcinol 3-06 S pirit one) one) 00:00: - CHI 00 [facility] Mimi Kenlorelei 2017-0 No 40mg Common (Triamcinol (Triamcinol 3-06 S pirit one) one) 00:00: - CHI 00 [facility] Mimi Kenlorelei 2017-0 No 40mg Common (Triamcinol (Triamcinol 3-06 S pirit one) one) 00:00: - CHI 00 [facility] Mimi Le 2017-0 No 40mg Common (Triamcinol (Triamcinol 3-06 S pirit one) one) 00:00: - CHI 00 [facility] Mimi Kenlorelei 2017-0 No 40mg Common (Triamcinol (Triamcinol 3-06 S pirit one) one) 00:00: - CHI 00 [facility] Mimi Kenlorelei 2017-0 No 40mg Common (Triamcinol (Triamcinol 3-06 S pirit one) one) 00:00: - CHI 00 [facility] Mimi Le 2017-0 No 40mg Common (Triamcinol (Triamcinol 3-06 S pirit one) one) 00:00: - CHI 00 [facility] Mimi Kenlorelei 2017-0 No 40mg Common (Triamcinol (Triamcinol 3-06 S pirit one) one) 00:00: - CHI 00 [facility] Kenlorelei 2018-0 No 40mg Common (Triamcinol (Triamcinol 3-06 S pirit one) one) 00:00: - CHI 00 [facility] Glucometer Glucometer Yes Na Mccoy one Common Spirit - CHI [facility] Levothyroxi Levothyroxi Yes Na Mccoy 1 tablet Common ne Sodium ne Sodium on an Spir it empty - CHI stomach in [facility] Lancets Lancets Yes Na Mccoy as Common directed [facility] Accu-Chek Accu-Chek Yes Na Mccoy as Co mmon Softclix Softclix directed Spi rit Lancets Lancets [facility] Meclizine Meclizine Yes Na Mccoy TAKE 1 Common HCl HCl TABLET BY Spirit MOUTH - CHI THREE [facility] Mobic Mobic Yes Na Mccoy 1 tablet [facility] Euthyrox Euthyrox Yes Na Mccoy TAKE 1 Co mmon TABLET BY Spirit MOUTH ONCE - CHI DAILY IN [facility] ON Medical AN EMPTY [place] STOMACH EpiPen EpiPen Yes Na Mccoy not Common 2-Gerald 2-Gerald defined [facility] Olopatadine Olopatadine Yes Na Mccoy 2 sprays Common HCl HCl in each [facility]ril [facility] Meclizine Meclizine Yes Na Mccoy TAKE 1 Common HCl HCl TABLET BY Spirit MOUTH 3 - [facility] TIMES A [facility] Levothyroxi Levothyroxi Yes Na Mccoy 1 tablet Common ne Sodium ne Sodium on an Spir it empty - [facility] stomach in [facility] Cipro Cipro Yes Na Mccoy 1 tablet [facility] Augmentin Augmentin Yes Na Mccoy 1 tablet [facility] Crestor Crestor Yes Na Mccoy 1 tablet [facility] Pantoprazol Pantoprazol Yes Na Mccoy 1 tablet Common e Sodium e Sodium [facility] blood blood Yes Na Mccoy as Common glucose glucose directed Spiri t test strip test strip - C HI [facility] Singulair Singulair Yes Na Mccoy 1 tablet [facility] Lisinopril Lisinopril Yes Na Mccoy 1 tablet Common [facility] Accu-Chek Accu-Chek No QD Accu-Chek Claire Plus Claire Plus Claire Plus - - - Lisinopril Lisinopril No 1{table QD Lisinopril 40 MG 40 MG t} 40 MG Align Align No Align amLODIPine amLODIPine No 1{table QD amLODIPine Besylate Besylate t} Besylate 2.5 MG 2.5 MG 2.5 MG Chromium Chromium No 1{capsu QD Chromium 200 MCG 200 MCG le} 200 MCG Folic Acid Folic Acid No Folic Acid 1 MG 1 MG 1 MG Montelukast Montelukast No Montelukas Sodium 10 Sodium 10 t Sodium MG MG 10 MG Meclizine Meclizine No Meclizine HCl 25 MG HCl 25 MG HCl 25 MG Magnesium Magnesium No Magnesium Glycinate Glycinate Glycinate PreserVisio PreserVisio No PreserVisi n AREDS n AREDS on AREDS Famotidine Famotidine No 1{table QD Famotidine 40 MG 40 MG t_at_be 40 MG dtime} Euthyrox 50 Euthyrox 50 No Euthyrox MCG MCG 50 MCG Odette Odette No QD Odette Allergy 180 Allergy 180 Allergy MG MG 180 MG Crestor 40 Crestor 40 No 1{table QD Crestor 40 MG MG t} MG Zinc 50 MG Zinc 50 MG No 1{table QD Zinc 50 MG t} Lisinopril Lisinopril No 1{table QD Lisinopril 40 MG 40 MG t} 40 MG Vitamin D2 Vitamin D2 No Vitamin D2 CoQ-10 CoQ-10 No CoQ-10 Align Align No Align Olopatadine Olopatadine No Olopatadin HCl 0.6 % HCl 0.6 % e HCl 0.6 % Accu-Chek Accu-Chek No QD Accu-Chek Claire Plus Lcaire Plus Claire Plus - - - Nasacort Nasacort No 2{spray QD Nasacort Allergy Allergy _in_eac Allergy 24HR 55 24HR 55 h_nostr 24HR 55 MCG/ACT MCG/ACT il} MCG/ACT Accu-Chek Accu-Chek No Accu-Chek Softclix Softclix Softclix Lancets - Lancets - Lancets - Meclizine Meclizine No Meclizine HCl 25 MG HCl 25 MG HCl 25 MG amLODIPine amLODIPine No 1{table QD amLODIPine Besylate Besylate t} Besylate 2.5 MG 2.5 MG 2.5 MG PreserVisio PreserVisio No PreserVisi n AREDS n AREDS on AREDS Zinc 50 MG Zinc 50 MG No 1{table QD Zinc 50 MG t} Folic Acid Folic Acid No Folic Acid 1 MG 1 MG 1 MG Lisinopril Lisinopril No 1{table QD Lisinopril 40 MG 40 MG t} 40 MG Olopatadine Olopatadine No Olopatadin HCl 0.6 % HCl 0.6 % e HCl 0.6 % Famotidine Famotidine No 1{table QD Famotidine 40 MG 40 MG t_at_be 40 MG dtime} Magnesium Magnesium No Magnesium Glycinate Glycinate Glycinate Odette Odette No QD Odette Allergy 180 Allergy 180 Allergy MG MG 180 MG Align Align No Align Crestor 40 Crestor 40 No 1{table QD Crestor 40 MG MG t} MG Nasacort Nasacort No 2{spray QD Nasacort Allergy Allergy _in_eac Allergy 24HR 55 24HR 55 h_nostr 24HR 55 MCG/ACT MCG/ACT il} MCG/ACT Accu-Chek Accu-Chek No Accu-Chek Softclix Softclix Softclix Lancets - Lancets - Lancets - Montelukast Montelukast No Montelukas Sodium 10 Sodium 10 t Sodium MG MG 10 MG Vitamin D2 Vitamin D2 No Vitamin D2 Euthyrox 50 Euthyrox 50 No Euthyrox MCG MCG 50 MCG Accu-Chek Accu-Chek No QD Accu-Chek Claire Plus Claire Plus Claire Plus - - - CoQ-10 CoQ-10 No CoQ-10 Chromium Chromium No 1{capsu QD Chromium 200 MCG 200 MCG le} 200 MCG Montelukast Montelukast No Montelukas Sodium 10 Sodium 10 t Sodium MG MG 10 MG Glucometer Glucometer No Glucometer n/s n/s n/s Mobic 7.5 Mobic 7.5 No 1{table QD Mobic 7.5 MG MG t} MG Pantoprazol Pantoprazol No 1{table QD Pantoprazo e Sodium 40 e Sodium 40 t} le Sodium MG MG 40 MG Lancets - Lancets - No Lancets - Singulair Singulair No 1{table QD Singulair 10 MG 10 MG t} 10 MG Meclizine Meclizine No Meclizine HCl 25 MG HCl 25 MG HCl 25 MG Lisinopril Lisinopril No 1{table QD Lisinopril 40 MG 40 MG t} 40 MG Crestor 40 Crestor 40 No 1{table QD Crestor 40 MG MG t} MG blood blood No BID blood glucose glucose glucose test strip test strip test strip Meclizine Meclizine No Meclizine HCl 25 MG HCl 25 MG HCl 25 MG Levothyroxi Levothyroxi No Levothyrox ne Sodium ne Sodium ine Sodium 25 MCG 25 MCG 25 MCG Olopatadine Olopatadine No Olopatadin HCl 0.6 % HCl 0.6 % e HCl 0.6 % Accu-Chek Accu-Chek No BID Accu-Chek Claire Plus Claire Plus Claire Plus - - - Olopatadine Olopatadine No 2{spray BID Olopatadin HCl 0.6 % HCl 0.6 % s_in_ea e HCl 0.6 ch_nost % ril} Cipro 500 Cipro 500 No 1{table BID Cipro 500 MG MG t} MG amLODIPine amLODIPine No 1{table QD amLODIPine Besylate Besylate t} Besylate 2.5 MG 2.5 MG 2.5 MG EpiPen EpiPen No EpiPen 2-Gerald 0.3 2-Gerald 0.3 2-Gerald 0.3 MG/0.3ML MG/0.3ML MG/0.3ML Accu-Chek Accu-Chek No BID Accu-Chek Softclix Softclix Softclix Lancets - Lancets - Lancets - Euthyrox 25 Euthyrox 25 No Euthyrox MCG MCG 25 MCG Augmentin Augmentin No 1{table BID Augmentin 500-125 MG 500-125 MG t} 500-125 MG Lancets - Lancets - No Lancets - Montelukast Montelukast No Montelukas Sodium 10 Sodium 10 t Sodium MG MG 10 MG Meclizine Meclizine No Meclizine HCl 25 MG HCl 25 MG HCl 25 MG Meclizine Meclizine No Meclizine HCl 25 MG HCl 25 MG HCl 25 MG Mobic 7.5 Mobic 7.5 No 1{table QD Mobic 7.5 MG MG t} MG Levothyroxi Levothyroxi No Levothyrox ne Sodium ne Sodium ine Sodium 25 MCG 25 MCG 25 MCG amLODIPine amLODIPine No 1{table QD amLODIPine Besylate Besylate t} Besylate 2.5 MG 2.5 MG 2.5 MG Lisinopril Lisinopril No 1{table QD Lisinopril 40 MG 40 MG t} 40 MG Singulair Singulair No 1{table QD Singulair 10 MG 10 MG t} 10 MG Crestor 40 Crestor 40 No 1{table QD Crestor 40 MG MG t} MG Cipro 500 Cipro 500 No 1{table BID Cipro 500 MG MG t} MG blood blood No BID blood glucose glucose glucose test strip test strip test strip Euthyrox 25 Euthyrox 25 No Euthyrox MCG MCG 25 MCG Augmentin Augmentin No 1{table BID Augmentin 500-125 MG 500-125 MG t} 500-125 MG EpiPen EpiPen No EpiPen 2-Gerald 0.3 2-Gerald 0.3 2-Gerald 0.3 MG/0.3ML MG/0.3ML MG/0.3ML Pantoprazol Pantoprazol No 1{table QD Pantoprazo e Sodium 40 e Sodium 40 t} le Sodium MG MG 40 MG Olopatadine Olopatadine No Olopatadin HCl 0.6 % HCl 0.6 % e HCl 0.6 % Accu-Chek Accu-Chek No BID Accu-Chek Claire Plus Claire Plus Claire Plus - - - Accu-Chek Accu-Chek No BID Accu-Chek Softclix Softclix Softclix Lancets - Lancets - Lancets - Olopatadine Olopatadine No 2{spray BID Olopatadin HCl 0.6 % HCl 0.6 % s_in_ea e HCl 0.6 ch_nost % ril} Glucometer Glucometer No Glucometer n/s n/s n/s amLODIPine amLODIPine No 1{table QD amLODIPine Besylate Besylate t} Besylate 2.5 MG 2.5 MG 2.5 MG Cipro 500 Cipro 500 No 1{table BID Cipro 500 MG MG t} MG Crestor 40 Crestor 40 No 1{table QD Crestor 40 MG MG t} MG Euthyrox 25 Euthyrox 25 No Euthyrox MCG MCG 25 MCG Augmentin Augmentin No 1{table BID Augmentin 500-125 MG 500-125 MG t} 500-125 MG Pantoprazol Pantoprazol No 1{table QD Pantoprazo e Sodium 40 e Sodium 40 t} le Sodium MG MG 40 MG Montelukast Montelukast No Montelukas Sodium 10 Sodium 10 t Sodium MG MG 10 MG blood blood No BID blood glucose glucose glucose test strip test strip test strip EpiPen EpiPen No EpiPen 2-Gerald 0.3 2-Gerald 0.3 2-Gerald 0.3 MG/0.3ML MG/0.3ML MG/0.3ML Olopatadine Olopatadine No 2{spray BID Olopatadin HCl 0.6 % HCl 0.6 % s_in_ea e HCl 0.6 ch_nost % ril} Accu-Chek Accu-Chek No Accu-Chek Softclix Softclix Softclix Lancets - Lancets - Lancets - Singulair Singulair No 1{table QD Singulair 10 MG 10 MG t} 10 MG Glucometer Glucometer No Glucometer n/s n/s n/s Accu-Chek Accu-Chek No BID Accu-Chek Claire Plus Claire Plus Claire Plus - - - Mobic 7.5 Mobic 7.5 No 1{table QD Mobic 7.5 MG MG t} MG Meclizine Meclizine No Meclizine HCl 25 MG HCl 25 MG HCl 25 MG Olopatadine Olopatadine No Olopatadin HCl 0.6 % HCl 0.6 % e HCl 0.6 % Lisinopril Lisinopril No 1{table QD Lisinopril 40 MG 40 MG t} 40 MG Lancets - Lancets - No Lancets - Levothyroxi Levothyroxi No Levothyrox ne Sodium ne Sodium ine Sodium 25 MCG 25 MCG 25 MCG Meclizine Meclizine No Meclizine HCl 25 MG HCl 25 MG HCl 25 MG amLODIPine amLODIPine No 1{table QD amLODIPine Besylate Besylate t} Besylate 2.5 MG 2.5 MG 2.5 MG Cipro 500 Cipro 500 No 1{table BID Cipro 500 MG MG t} MG Crestor 40 Crestor 40 No 1{table QD Crestor 40 MG MG t} MG Euthyrox 25 Euthyrox 25 No Euthyrox MCG MCG 25 MCG Augmentin Augmentin No 1{table BID Augmentin 500-125 MG 500-125 MG t} 500-125 MG Pantoprazol Pantoprazol No 1{table QD Pantoprazo e Sodium 40 e Sodium 40 t} le Sodium MG MG 40 MG Montelukast Montelukast No Montelukas Sodium 10 Sodium 10 t Sodium MG MG 10 MG blood blood No BID blood glucose glucose glucose test strip test strip test strip EpiPen EpiPen No EpiPen 2-Gerald 0.3 2-Gerald 0.3 2-Gerald 0.3 MG/0.3ML MG/0.3ML MG/0.3ML Olopatadine Olopatadine No 2{spray BID Olopatadin HCl 0.6 % HCl 0.6 % s_in_ea e HCl 0.6 ch_nost % ril} Accu-Chek Accu-Chek No Accu-Chek Softclix Softclix Softclix Lancets - Lancets - Lancets - Singulair Singulair No 1{table QD Singulair 10 MG 10 MG t} 10 MG Glucometer Glucometer No Glucometer n/s n/s n/s Accu-Chek Accu-Chek No BID Accu-Chek Claire Plus Claire Plus Claire Plus - - - Mobic 7.5 Mobic 7.5 No 1{table QD Mobic 7.5 MG MG t} MG Meclizine Meclizine No Meclizine HCl 25 MG HCl 25 MG HCl 25 MG Olopatadine Olopatadine No Olopatadin HCl 0.6 % HCl 0.6 % e HCl 0.6 % Lisinopril Lisinopril No 1{table QD Lisinopril 40 MG 40 MG t} 40 MG Lancets - Lancets - No Lancets - Levothyroxi Levothyroxi No Levothyrox ne Sodium ne Sodium ine Sodium 25 MCG 25 MCG 25 MCG Meclizine Meclizine No Meclizine HCl 25 MG HCl 25 MG HCl 25 MG Augmentin Augmentin No 1{table BID Augmentin 500-125 MG 500-125 MG t} 500-125 MG amLODIPine amLODIPine No 1{table QD amLODIPine Besylate Besylate t} Besylate 2.5 MG 2.5 MG 2.5 MG Montelukast Montelukast No Montelukas Sodium 10 Sodium 10 t Sodium MG MG 10 MG Euthyrox 25 Euthyrox 25 No Euthyrox MCG MCG 25 MCG Crestor 40 Crestor 40 No 1{table QD Crestor 40 MG MG t} MG Pantoprazol Pantoprazol No 1{table QD Pantoprazo e Sodium 40 e Sodium 40 t} le Sodium MG MG 40 MG Lisinopril Lisinopril No 1{table QD Lisinopril 40 MG 40 MG t} 40 MG blood blood No BID blood glucose glucose glucose test strip test strip test strip EpiPen EpiPen No EpiPen 2-Gerald 0.3 2-Gerald 0.3 2-Gerald 0.3 MG/0.3ML MG/0.3ML MG/0.3ML Olopatadine Olopatadine No 2{spray BID Olopatadin HCl 0.6 % HCl 0.6 % s_in_ea e HCl 0.6 ch_nost % ril} Accu-Chek Accu-Chek No Accu-Chek Softclix Softclix Softclix Lancets - Lancets - Lancets - Singulair Singulair No 1{table QD Singulair 10 MG 10 MG t} 10 MG Glucometer Glucometer No Glucometer n/s n/s n/s Meclizine Meclizine No Meclizine HCl 25 MG HCl 25 MG HCl 25 MG Accu-Chek Accu-Chek No BID Accu-Chek Claire Plus Claire Plus Claire Plus - - - Meclizine Meclizine No Meclizine HCl 25 MG HCl 25 MG HCl 25 MG Olopatadine Olopatadine No Olopatadin HCl 0.6 % HCl 0.6 % e HCl 0.6 % Mobic 7.5 Mobic 7.5 No 1{table QD Mobic 7.5 MG MG t} MG Lancets - Lancets - No Lancets - Levothyroxi Levothyroxi No Levothyrox ne Sodium ne Sodium ine Sodium 25 MCG 25 MCG 25 MCG Cipro 500 Cipro 500 No 1{table BID Cipro 500 MG MG t} MG Crestor 40 Crestor 40 No 1{table QD MG MG t} Accu-Chek Accu-Chek No BID Softclix Softclix Lancets - Lancets - Meclizine Meclizine No HCl 25 MG HCl 25 MG Olopatadine Olopatadine No HCl 0.6 % HCl 0.6 % Accu-Chek Accu-Chek No BID Claire Plus Claire Plus - - Align Align No Magnesium Magnesium No Glycinate Glycinate Accu-Chek Accu-Chek No Softclix Softclix Lancets - Lancets - Vitamin D2 Vitamin D2 No PreserVisio PreserVisio No n AREDS n AREDS Famotidine Famotidine No 1{table QD 40 MG 40 MG t_at_be dtime} Montelukast Montelukast No Sodium 10 Sodium 10 MG MG amLODIPine amLODIPine No 1{table QD Besylate Besylate t} 2.5 MG 2.5 MG CoQ-10 CoQ-10 No Zinc 50 MG Zinc 50 MG No 1{table QD t} Nasacort Nasacort No 2{spray QD Allergy Allergy _in_eac 24HR 55 24HR 55 h_nostr MCG/ACT MCG/ACT il} Euthyrox 50 Euthyrox 50 No QD MCG MCG Lisinopril Lisinopril No 1{table QD 40 MG 40 MG t} Chromium Chromium No 1{capsu QD 200 MCG 200 MCG le} Odette Odette No QD Allergy 180 Allergy 180 MG MG Accu-Chek Accu-Chek No BID Claire Plus Claire Plus - - Crestor 40 Crestor 40 No 1{table QD Crestor 40 MG MG t} MG Accu-Chek Accu-Chek No BID Accu-Chek Softclix Softclix Softclix Lancets - Lancets - Lancets - Meclizine Meclizine No Meclizine HCl 25 MG HCl 25 MG HCl 25 MG Olopatadine Olopatadine No Olopatadin HCl 0.6 % HCl 0.6 % e HCl 0.6 % Accu-Chek Accu-Chek No BID Accu-Chek Claire Plus Claire Plus Claire Plus - - - Align Align No Align Magnesium Magnesium No Magnesium Glycinate Glycinate Glycinate Accu-Chek Accu-Chek No Accu-Chek Softclix Softclix Softclix Lancets - Lancets - Lancets - Vitamin D2 Vitamin D2 No Vitamin D2 PreserVisio PreserVisio No PreserVisi n AREDS n AREDS on AREDS Famotidine Famotidine No 1{table QD Famotidine 40 MG 40 MG t_at_be 40 MG dtime} Montelukast Montelukast No Montelukas Sodium 10 Sodium 10 t Sodium MG MG 10 MG amLODIPine amLODIPine No 1{table QD amLODIPine Besylate Besylate t} Besylate 2.5 MG 2.5 MG 2.5 MG CoQ-10 CoQ-10 No CoQ-10 Zinc 50 MG Zinc 50 MG No 1{table QD Zinc 50 MG t} Nasacort Nasacort No 2{spray QD Nasacort Allergy Allergy _in_eac Allergy 24HR 55 24HR 55 h_nostr 24HR 55 MCG/ACT MCG/ACT il} MCG/ACT Euthyrox 50 Euthyrox 50 No QD Euthyrox MCG MCG 50 MCG Lisinopril Lisinopril No 1{table QD Lisinopril 40 MG 40 MG t} 40 MG Chromium Chromium No 1{capsu QD Chromium 200 MCG 200 MCG le} 200 MCG Odette Odette No QD Odette Allergy 180 Allergy 180 Allergy MG MG 180 MG Accu-Chek Accu-Chek No BID Accu-Chek Claire Plus Claire Plus Claire Plus - - - Accu-Chek Accu-Chek No BID Accu-Chek Claire Plus Claire Plus Claire Plus - - - Accu-Chek Accu-Chek No Accu-Chek Softclix Softclix Softclix Lancets - Lancets - Lancets - Olopatadine Olopatadine No Olopatadin HCl 0.6 % HCl 0.6 % e HCl 0.6 % Nasacort Nasacort No 2{spray QD Nasacort Allergy Allergy _in_eac Allergy 24HR 55 24HR 55 h_nostr 24HR 55 MCG/ACT MCG/ACT il} MCG/ACT PreserVisio PreserVisio No PreserVisi n AREDS n AREDS on AREDS Magnesium Magnesium No Magnesium Glycinate Glycinate Glycinate Euthyrox 50 Euthyrox 50 No QD Euthyrox MCG MCG 50 MCG CoQ-10 CoQ-10 No CoQ-10 Vitamin D2 Vitamin D2 No Vitamin D2 Chromium Chromium No 1{capsu QD Chromium 200 MCG 200 MCG le} 200 MCG amLODIPine amLODIPine No 1{table QD amLODIPine Besylate Besylate t} Besylate 2.5 MG 2.5 MG 2.5 MG Montelukast Montelukast No Montelukas Sodium 10 Sodium 10 t Sodium MG MG 10 MG Zinc 50 MG Zinc 50 MG No 1{table QD Zinc 50 MG t} Famotidine Famotidine No 1{table QD Famotidine 40 MG 40 MG t_at_be 40 MG dtime} Meclizine Meclizine No Meclizine HCl 25 MG HCl 25 MG HCl 25 MG Odette Odette No QD Odette Allergy 180 Allergy 180 Allergy MG MG 180 MG Lisinopril Lisinopril No 1{table QD Lisinopril 40 MG 40 MG t} 40 MG Accu-Chek Accu-Chek No BID Accu-Chek Claire Plus Claire Plus Claire Plus - - - Align Align No Align Crestor 40 Crestor 40 No 1{table QD Crestor 40 MG MG t} MG Accu-Chek Accu-Chek No BID Accu-Chek Softclix Softclix Softclix Lancets - Lancets - Lancets - Accu-Chek Accu-Chek No BID Accu-Chek Claire Plus Claire Plus Claire Plus - - - Accu-Chek Accu-Chek No Accu-Chek Softclix Softclix Softclix Lancets - Lancets - Lancets - Olopatadine Olopatadine No Olopatadin HCl 0.6 % HCl 0.6 % e HCl 0.6 % Nasacort Nasacort No 2{spray QD Nasacort Allergy Allergy _in_eac Allergy 24HR 55 24HR 55 h_nostr 24HR 55 MCG/ACT MCG/ACT il} MCG/ACT PreserVisio PreserVisio No PreserVisi n AREDS n AREDS on AREDS Magnesium Magnesium No Magnesium Glycinate Glycinate Glycinate Euthyrox 50 Euthyrox 50 No QD Euthyrox MCG MCG 50 MCG CoQ-10 CoQ-10 No CoQ-10 Vitamin D2 Vitamin D2 No Vitamin D2 Chromium Chromium No 1{capsu QD Chromium 200 MCG 200 MCG le} 200 MCG amLODIPine amLODIPine No 1{table QD amLODIPine Besylate Besylate t} Besylate 2.5 MG 2.5 MG 2.5 MG Montelukast Montelukast No Montelukas Sodium 10 Sodium 10 t Sodium MG MG 10 MG Zinc 50 MG Zinc 50 MG No 1{table QD Zinc 50 MG t} Famotidine Famotidine No 1{table QD Famotidine 40 MG 40 MG t_at_be 40 MG dtime} Meclizine Meclizine No Meclizine HCl 25 MG HCl 25 MG HCl 25 MG Odette Odette No QD Odette Allergy 180 Allergy 180 Allergy MG MG 180 MG Lisinopril Lisinopril No 1{table QD Lisinopril 40 MG 40 MG t} 40 MG Accu-Chek Accu-Chek No BID Accu-Chek Claire Plus Claire Plus Claire Plus - - - Align Align No Align Crestor 40 Crestor 40 No 1{table QD Crestor 40 MG MG t} MG Accu-Chek Accu-Chek No BID Accu-Chek Softclix Softclix Softclix Lancets - Lancets - Lancets - Accu-Chek Accu-Chek No BID Accu-Chek Claire Plus Claire Plus Claire Plus - - - Accu-Chek Accu-Chek No Accu-Chek Softclix Softclix Softclix Lancets - Lancets - Lancets - Olopatadine Olopatadine No Olopatadin HCl 0.6 % HCl 0.6 % e HCl 0.6 % Nasacort Nasacort No 2{spray QD Nasacort Allergy Allergy _in_eac Allergy 24HR 55 24HR 55 h_nostr 24HR 55 MCG/ACT MCG/ACT il} MCG/ACT PreserVisio PreserVisio No PreserVisi n AREDS n AREDS on AREDS Magnesium Magnesium No Magnesium Glycinate Glycinate Glycinate Euthyrox 50 Euthyrox 50 No QD Euthyrox MCG MCG 50 MCG CoQ-10 CoQ-10 No CoQ-10 Vitamin D2 Vitamin D2 No Vitamin D2 Chromium Chromium No 1{capsu QD Chromium 200 MCG 200 MCG le} 200 MCG amLODIPine amLODIPine No 1{table QD amLODIPine Besylate Besylate t} Besylate 2.5 MG 2.5 MG 2.5 MG Montelukast Montelukast No Montelukas Sodium 10 Sodium 10 t Sodium MG MG 10 MG Zinc 50 MG Zinc 50 MG No 1{table QD Zinc 50 MG t} Famotidine Famotidine No 1{table QD Famotidine 40 MG 40 MG t_at_be 40 MG dtime} Meclizine Meclizine No Meclizine HCl 25 MG HCl 25 MG HCl 25 MG Odette Odette No QD Odette Allergy 180 Allergy 180 Allergy MG MG 180 MG Lisinopril Lisinopril No 1{table QD Lisinopril 40 MG 40 MG t} 40 MG Accu-Chek Accu-Chek No BID Accu-Chek Claire Plus Claire Plus Claire Plus - - - Align Align No Align Crestor 40 Crestor 40 No 1{table QD Crestor 40 MG MG t} MG Accu-Chek Accu-Chek No BID Accu-Chek Softclix Softclix Softclix Lancets - Lancets - Lancets - Accu-Chek Accu-Chek No BID Accu-Chek Claire Plus Claire Plus Claire Plus - - - Accu-Chek Accu-Chek No Accu-Chek Softclix Softclix Softclix Lancets - Lancets - Lancets - Olopatadine Olopatadine No Olopatadin HCl 0.6 % HCl 0.6 % e HCl 0.6 % Nasacort Nasacort No 2{spray QD Nasacort Allergy Allergy _in_eac Allergy 24HR 55 24HR 55 h_nostr 24HR 55 MCG/ACT MCG/ACT il} MCG/ACT PreserVisio PreserVisio No PreserVisi n AREDS n AREDS on AREDS Magnesium Magnesium No Magnesium Glycinate Glycinate Glycinate Euthyrox 50 Euthyrox 50 No QD Euthyrox MCG MCG 50 MCG CoQ-10 CoQ-10 No CoQ-10 Vitamin D2 Vitamin D2 No Vitamin D2 Chromium Chromium No 1{capsu QD Chromium 200 MCG 200 MCG le} 200 MCG amLODIPine amLODIPine No 1{table QD amLODIPine Besylate Besylate t} Besylate 2.5 MG 2.5 MG 2.5 MG Montelukast Montelukast No Montelukas Sodium 10 Sodium 10 t Sodium MG MG 10 MG Zinc 50 MG Zinc 50 MG No 1{table QD Zinc 50 MG t} Famotidine Famotidine No 1{table QD Famotidine 40 MG 40 MG t_at_be 40 MG dtime} Meclizine Meclizine No Meclizine HCl 25 MG HCl 25 MG HCl 25 MG Odette Odette No QD Odette Allergy 180 Allergy 180 Allergy MG MG 180 MG Lisinopril Lisinopril No 1{table QD Lisinopril 40 MG 40 MG t} 40 MG Accu-Chek Accu-Chek No BID Accu-Chek Claire Plus Claire Plus Claire Plus - - - Align Align No Align Crestor 40 Crestor 40 No 1{table QD Crestor 40 MG MG t} MG Accu-Chek Accu-Chek No BID Accu-Chek Softclix Softclix Softclix Lancets - Lancets - Lancets - Accu-Chek Accu-Chek No BID Accu-Chek Claire Plus Claire Plus Claire Plus - - - Accu-Chek Accu-Chek No Accu-Chek Softclix Softclix Softclix Lancets - Lancets - Lancets - Olopatadine Olopatadine No Olopatadin HCl 0.6 % HCl 0.6 % e HCl 0.6 % Nasacort Nasacort No 2{spray QD Nasacort Allergy Allergy _in_eac Allergy 24HR 55 24HR 55 h_nostr 24HR 55 MCG/ACT MCG/ACT il} MCG/ACT PreserVisio PreserVisio No PreserVisi n AREDS n AREDS on AREDS Magnesium Magnesium No Magnesium Glycinate Glycinate Glycinate Euthyrox 50 Euthyrox 50 No QD Euthyrox MCG MCG 50 MCG CoQ-10 CoQ-10 No CoQ-10 Vitamin D2 Vitamin D2 No Vitamin D2 Chromium Chromium No 1{capsu QD Chromium 200 MCG 200 MCG le} 200 MCG amLODIPine amLODIPine No 1{table QD amLODIPine Besylate Besylate t} Besylate 2.5 MG 2.5 MG 2.5 MG Montelukast Montelukast No Montelukas Sodium 10 Sodium 10 t Sodium MG MG 10 MG Zinc 50 MG Zinc 50 MG No 1{table QD Zinc 50 MG t} Famotidine Famotidine No 1{table QD Famotidine 40 MG 40 MG t_at_be 40 MG dtime} Meclizine Meclizine No Meclizine HCl 25 MG HCl 25 MG HCl 25 MG Odette Odette No QD Odette Allergy 180 Allergy 180 Allergy MG MG 180 MG Lisinopril Lisinopril No 1{table QD Lisinopril 40 MG 40 MG t} 40 MG Accu-Chek Accu-Chek No BID Accu-Chek Claire Plus Claire Plus Claire Plus - - - Align Align No Align Crestor 40 Crestor 40 No 1{table QD Crestor 40 MG MG t} MG Accu-Chek Accu-Chek No BID Accu-Chek Softclix Softclix Softclix Lancets - Lancets - Lancets - Align Align No Align Accu-Chek Accu-Chek No Accu-Chek Softclix Softclix Softclix Lancets - Lancets - Lancets - amLODIPine amLODIPine No 1{table QD amLODIPine Besylate Besylate t} Besylate 2.5 MG 2.5 MG 2.5 MG Euthyrox 50 Euthyrox 50 No QD Euthyrox MCG MCG 50 MCG Accu-Chek Accu-Chek No BID Accu-Chek Claire Plus Claire Plus Claire Plus - - - Meclizine Meclizine No Meclizine HCl 25 MG HCl 25 MG HCl 25 MG PreserVisio PreserVisio No PreserVisi n AREDS n AREDS on AREDS Zinc 50 MG Zinc 50 MG No 1{table QD Zinc 50 MG t} Crestor 40 Crestor 40 No 1{table QD Crestor 40 MG MG t} MG Montelukast Montelukast No Montelukas Sodium 10 Sodium 10 t Sodium MG MG 10 MG Lisinopril Lisinopril No 1{table QD Lisinopril 40 MG 40 MG t} 40 MG Magnesium Magnesium No Magnesium Glycinate Glycinate Glycinate Odette Odette No QD Odette Allergy 180 Allergy 180 Allergy MG MG 180 MG Accu-Chek Accu-Chek No BID Accu-Chek Claire Plus Claire Plus Claire Plus - - - Vitamin D2 Vitamin D2 No Vitamin D2 Famotidine Famotidine No 1{table QD Famotidine 40 MG 40 MG t_at_be 40 MG dtime} Nasacort Nasacort No 2{spray QD Nasacort Allergy Allergy _in_eac Allergy 24HR 55 24HR 55 h_nostr 24HR 55 MCG/ACT MCG/ACT il} MCG/ACT Olopatadine Olopatadine No Olopatadin HCl 0.6 % HCl 0.6 % e HCl 0.6 % CoQ-10 CoQ-10 No CoQ-10 Accu-Chek Accu-Chek No BID Accu-Chek Softclix Softclix Softclix Lancets - Lancets - Lancets - Chromium Chromium No 1{capsu QD Chromium 200 MCG 200 MCG le} 200 MCG Align Align No Align Accu-Chek Accu-Chek No Accu-Chek Softclix Softclix Softclix Lancets - Lancets - Lancets - amLODIPine amLODIPine No 1{table QD amLODIPine Besylate Besylate t} Besylate 2.5 MG 2.5 MG 2.5 MG Euthyrox 50 Euthyrox 50 No QD Euthyrox MCG MCG 50 MCG Accu-Chek Accu-Chek No BID Accu-Chek Claire Plus Claire Plus Claire Plus - - - Meclizine Meclizine No Meclizine HCl 25 MG HCl 25 MG HCl 25 MG PreserVisio PreserVisio No PreserVisi n AREDS n AREDS on AREDS Zinc 50 MG Zinc 50 MG No 1{table QD Zinc 50 MG t} Crestor 40 Crestor 40 No 1{table QD Crestor 40 MG MG t} MG Montelukast Montelukast No Montelukas Sodium 10 Sodium 10 t Sodium MG MG 10 MG Lisinopril Lisinopril No 1{table QD Lisinopril 40 MG 40 MG t} 40 MG Magnesium Magnesium No Magnesium Glycinate Glycinate Glycinate Odette Odette No QD Odette Allergy 180 Allergy 180 Allergy MG MG 180 MG Accu-Chek Accu-Chek No BID Accu-Chek Claire Plus Claire Plus Claire Plus - - - Vitamin D2 Vitamin D2 No Vitamin D2 Famotidine Famotidine No 1{table QD Famotidine 40 MG 40 MG t_at_be 40 MG dtime} Nasacort Nasacort No 2{spray QD Nasacort Allergy Allergy _in_eac Allergy 24HR 55 24HR 55 h_nostr 24HR 55 MCG/ACT MCG/ACT il} MCG/ACT Olopatadine Olopatadine No Olopatadin HCl 0.6 % HCl 0.6 % e HCl 0.6 % CoQ-10 CoQ-10 No CoQ-10 Accu-Chek Accu-Chek No BID Accu-Chek Softclix Softclix Softclix Lancets - Lancets - Lancets - Chromium Chromium No 1{capsu QD Chromium 200 MCG 200 MCG le} 200 MCG CoQ-10 CoQ-10 No CoQ-10 Meclizine Meclizine No Meclizine HCl 25 MG HCl 25 MG HCl 25 MG Zinc 50 MG Zinc 50 MG No 1{table QD Zinc 50 MG t} Olopatadine Olopatadine No Olopatadin HCl 0.6 % HCl 0.6 % e HCl 0.6 % Montelukast Montelukast No Montelukas Sodium 10 Sodium 10 t Sodium MG MG 10 MG Euthyrox 50 Euthyrox 50 No QD Euthyrox MCG MCG 50 MCG Crestor 40 Crestor 40 No 1{table QD Crestor 40 MG MG t} MG Accu-Chek Accu-Chek No BID Accu-Chek Softclix Softclix Softclix Lancets - Lancets - Lancets - Famotidine Famotidine No 1{table QD Famotidine 40 MG 40 MG t_at_be 40 MG dtime} Odette Odette No QD Odette Allergy 180 Allergy 180 Allergy MG MG 180 MG Accu-Chek Accu-Chek No Accu-Chek Softclix Softclix Softclix Lancets - Lancets - Lancets - Chromium Chromium No 1{capsu QD Chromium 200 MCG 200 MCG le} 200 MCG Accu-Chek Accu-Chek No BID Accu-Chek Claire Plus Claire Plus Claire Plus - - - Lisinopril Lisinopril No 1{table QD Lisinopril 40 MG 40 MG t} 40 MG PreserVisio PreserVisio No PreserVisi n AREDS n AREDS on AREDS Align Align No Align Magnesium Magnesium No Magnesium Glycinate Glycinate Glycinate Nasacort Nasacort No 2{spray QD Nasacort Allergy Allergy _in_eac Allergy 24HR 55 24HR 55 h_nostr 24HR 55 MCG/ACT MCG/ACT il} MCG/ACT Accu-Chek Accu-Chek No BID Accu-Chek Claire Plus Claire Plus Claire Plus - - - amLODIPine amLODIPine No 1{table QD amLODIPine Besylate Besylate t} Besylate 2.5 MG 2.5 MG 2.5 MG Vitamin D2 Vitamin D2 No Vitamin D2 Accu-Chek Accu-Chek No Accu-Chek Softclix Softclix Softclix Lancets - Lancets - Lancets - Zinc 50 MG Zinc 50 MG No 1{table QD Zinc 50 MG t} Vitamin D2 Vitamin D2 No Vitamin D2 Euthyrox 50 Euthyrox 50 No QD Euthyrox MCG MCG 50 MCG Crestor 40 Crestor 40 No 1{table QD Crestor 40 MG MG t} MG PreserVisio PreserVisio No PreserVisi n AREDS n AREDS on AREDS Olopatadine Olopatadine No Olopatadin HCl 0.6 % HCl 0.6 % e HCl 0.6 % Align Align No Align Odette Odette No QD Odette Allergy 180 Allergy 180 Allergy MG MG 180 MG Famotidine Famotidine No 1{table QD Famotidine 40 MG 40 MG t_at_be 40 MG dtime} Accu-Chek Accu-Chek No BID Accu-Chek Claire Plus Claire Plus Claire Plus - - - Magnesium Magnesium No Magnesium Glycinate Glycinate Glycinate Nasacort Nasacort No 2{spray QD Nasacort Allergy Allergy _in_eac Allergy 24HR 55 24HR 55 h_nostr 24HR 55 MCG/ACT MCG/ACT il} MCG/ACT CoQ-10 CoQ-10 No CoQ-10 amLODIPine amLODIPine No 1{table QD amLODIPine Besylate Besylate t} Besylate 2.5 MG 2.5 MG 2.5 MG Meclizine Meclizine No Meclizine HCl 25 MG HCl 25 MG HCl 25 MG Accu-Chek Accu-Chek No BID Accu-Chek Claire Plus Claire Plus Claire Plus - - - Montelukast Montelukast No Montelukas Sodium 10 Sodium 10 t Sodium MG MG 10 MG Chromium Chromium No 1{capsu QD Chromium 200 MCG 200 MCG le} 200 MCG Accu-Chek Accu-Chek No BID Accu-Chek Softclix Softclix Softclix Lancets - Lancets - Lancets - Lisinopril Lisinopril No 1{table QD Lisinopril 40 MG 40 MG t} 40 MG Accu-Chek Accu-Chek No Accu-Chek Softclix Softclix Softclix Lancets - Lancets - Lancets - Zinc 50 MG Zinc 50 MG No 1{table QD Zinc 50 MG t} Vitamin D2 Vitamin D2 No Vitamin D2 Euthyrox 50 Euthyrox 50 No QD Euthyrox MCG MCG 50 MCG Crestor 40 Crestor 40 No 1{table QD Crestor 40 MG MG t} MG PreserVisio PreserVisio No PreserVisi n AREDS n AREDS on AREDS Olopatadine Olopatadine No Olopatadin HCl 0.6 % HCl 0.6 % e HCl 0.6 % Align Align No Align Odette Odette No QD Odette Allergy 180 Allergy 180 Allergy MG MG 180 MG Famotidine Famotidine No 1{table QD Famotidine 40 MG 40 MG t_at_be 40 MG dtime} Accu-Chek Accu-Chek No BID Accu-Chek Claire Plus Claire Plus Claire Plus - - - Magnesium Magnesium No Magnesium Glycinate Glycinate Glycinate Nasacort Nasacort No 2{spray QD Nasacort Allergy Allergy _in_eac Allergy 24HR 55 24HR 55 h_nostr 24HR 55 MCG/ACT MCG/ACT il} MCG/ACT CoQ-10 CoQ-10 No CoQ-10 amLODIPine amLODIPine No 1{table QD amLODIPine Besylate Besylate t} Besylate 2.5 MG 2.5 MG 2.5 MG Meclizine Meclizine No Meclizine HCl 25 MG HCl 25 MG HCl 25 MG Accu-Chek Accu-Chek No BID Accu-Chek Claire Plus Claire Plus Claire Plus - - - Montelukast Montelukast No Montelukas Sodium 10 Sodium 10 t Sodium MG MG 10 MG Chromium Chromium No 1{capsu QD Chromium 200 MCG 200 MCG le} 200 MCG Accu-Chek Accu-Chek No BID Accu-Chek Softclix Softclix Softclix Lancets - Lancets - Lancets - Lisinopril Lisinopril No 1{table QD Lisinopril 40 MG 40 MG t} 40 MG Accu-Chek Accu-Chek No BID Accu-Chek Claire Plus Claire Plus Claire Plus - - - Accu-Chek Accu-Chek No BID Accu-Chek Claire Plus Claire Plus Claire Plus - - - CoQ-10 CoQ-10 No CoQ-10 PreserVisio PreserVisio No PreserVisi n AREDS n AREDS on AREDS Accu-Chek Accu-Chek No Accu-Chek Softclix Softclix Softclix Lancets - Lancets - Lancets - Montelukast Montelukast No Montelukas Sodium 10 Sodium 10 t Sodium MG MG 10 MG Odette Odette No QD Odette Allergy 180 Allergy 180 Allergy MG MG 180 MG Nasacort Nasacort No 2{spray QD Nasacort Allergy Allergy _in_eac Allergy 24HR 55 24HR 55 h_nostr 24HR 55 MCG/ACT MCG/ACT il} MCG/ACT Zinc 50 MG Zinc 50 MG No 1{table QD Zinc 50 MG t} Lisinopril Lisinopril No 1{table QD Lisinopril 40 MG 40 MG t} 40 MG Olopatadine Olopatadine No Olopatadin HCl 0.6 % HCl 0.6 % e HCl 0.6 % amLODIPine amLODIPine No 1{table QD amLODIPine Besylate Besylate t} Besylate 2.5 MG 2.5 MG 2.5 MG Accu-Chek Accu-Chek No BID Accu-Chek Softclix Softclix Softclix Lancets - Lancets - Lancets - Vitamin D2 Vitamin D2 No Vitamin D2 Chromium Chromium No 1{capsu QD Chromium 200 MCG 200 MCG le} 200 MCG Crestor 40 Crestor 40 No 1{table QD Crestor 40 MG MG t} MG Euthyrox 50 Euthyrox 50 No QD Euthyrox MCG MCG 50 MCG Meclizine Meclizine No Meclizine HCl 25 MG HCl 25 MG HCl 25 MG Magnesium Magnesium No Magnesium Glycinate Glycinate Glycinate Famotidine Famotidine No 1{table QD Famotidine 40 MG 40 MG t_at_be 40 MG dtime} Align Align No Align Accu-Chek Accu-Chek No BID Accu-Chek Claire Plus Claire Plus Claire Plus - - - Accu-Chek Accu-Chek No BID Accu-Chek Claire Plus Claire Plus Claire Plus - - - CoQ-10 CoQ-10 No CoQ-10 PreserVisio PreserVisio No PreserVisi n AREDS n AREDS on AREDS Accu-Chek Accu-Chek No Accu-Chek Softclix Softclix Softclix Lancets - Lancets - Lancets - Montelukast Montelukast No Montelukas Sodium 10 Sodium 10 t Sodium MG MG 10 MG Odette Odette No QD Odette Allergy 180 Allergy 180 Allergy MG MG 180 MG Nasacort Nasacort No 2{spray QD Nasacort Allergy Allergy _in_eac Allergy 24HR 55 24HR 55 h_nostr 24HR 55 MCG/ACT MCG/ACT il} MCG/ACT Zinc 50 MG Zinc 50 MG No 1{table QD Zinc 50 MG t} Lisinopril Lisinopril No 1{table QD Lisinopril 40 MG 40 MG t} 40 MG Olopatadine Olopatadine No Olopatadin HCl 0.6 % HCl 0.6 % e HCl 0.6 % amLODIPine amLODIPine No 1{table QD amLODIPine Besylate Besylate t} Besylate 2.5 MG 2.5 MG 2.5 MG Accu-Chek Accu-Chek No BID Accu-Chek Softclix Softclix Softclix Lancets - Lancets - Lancets - Vitamin D2 Vitamin D2 No Vitamin D2 Chromium Chromium No 1{capsu QD Chromium 200 MCG 200 MCG le} 200 MCG Crestor 40 Crestor 40 No 1{table QD Crestor 40 MG MG t} MG Euthyrox 50 Euthyrox 50 No QD Euthyrox MCG MCG 50 MCG Meclizine Meclizine No Meclizine HCl 25 MG HCl 25 MG HCl 25 MG Magnesium Magnesium No Magnesium Glycinate Glycinate Glycinate Famotidine Famotidine No 1{table QD Famotidine 40 MG 40 MG t_at_be 40 MG dtime} Align Align No Align Euthyrox 50 Euthyrox 50 No QD Euthyrox MCG MCG 50 MCG amLODIPine amLODIPine No 1{table QD amLODIPine Besylate Besylate t} Besylate 2.5 MG 2.5 MG 2.5 MG Zinc 50 MG Zinc 50 MG No 1{table QD Zinc 50 MG t} Lisinopril Lisinopril No 1{table QD Lisinopril 40 MG 40 MG t} 40 MG PreserVisio PreserVisio No PreserVisi n AREDS n AREDS on AREDS Nasacort Nasacort No 2{spray QD Nasacort Allergy Allergy _in_eac Allergy 24HR 55 24HR 55 h_nostr 24HR 55 MCG/ACT MCG/ACT il} MCG/ACT Align Align No Align Odette Odette No QD Odette Allergy 180 Allergy 180 Allergy MG MG 180 MG Magnesium Magnesium No Magnesium Glycinate Glycinate Glycinate Crestor 40 Crestor 40 No 1{table QD Crestor 40 MG MG t} MG Chromium Chromium No 1{capsu QD Chromium 200 MCG 200 MCG le} 200 MCG Olopatadine Olopatadine No Olopatadin HCl 0.6 % HCl 0.6 % e HCl 0.6 % Accu-Chek Accu-Chek No BID Accu-Chek Claire Plus Claire Plus Claire Plus - - - Famotidine Famotidine No 1{table QD Famotidine 40 MG 40 MG t_at_be 40 MG dtime} CoQ-10 CoQ-10 No CoQ-10 Meclizine Meclizine No Meclizine HCl 25 MG HCl 25 MG HCl 25 MG Accu-Chek Accu-Chek No Accu-Chek Softclix Softclix Softclix Lancets - Lancets - Lancets - Accu-Chek Accu-Chek No BID Accu-Chek Claire Plus Claire Plus Claire Plus - - - Montelukast Montelukast No Montelukas Sodium 10 Sodium 10 t Sodium MG MG 10 MG Vitamin D2 Vitamin D2 No Vitamin D2 Accu-Chek Accu-Chek No BID Accu-Chek Softclix Softclix Softclix Lancets - Lancets - Lancets - Euthyrox 50 Euthyrox 50 No QD Euthyrox MCG MCG 50 MCG amLODIPine amLODIPine No 1{table QD amLODIPine Besylate Besylate t} Besylate 2.5 MG 2.5 MG 2.5 MG Zinc 50 MG Zinc 50 MG No 1{table QD Zinc 50 MG t} Lisinopril Lisinopril No 1{table QD Lisinopril 40 MG 40 MG t} 40 MG PreserVisio PreserVisio No PreserVisi n AREDS n AREDS on AREDS Nasacort Nasacort No 2{spray QD Nasacort Allergy Allergy _in_eac Allergy 24HR 55 24HR 55 h_nostr 24HR 55 MCG/ACT MCG/ACT il} MCG/ACT Align Align No Align Odette Odette No QD Odette Allergy 180 Allergy 180 Allergy MG MG 180 MG Magnesium Magnesium No Magnesium Glycinate Glycinate Glycinate Crestor 40 Crestor 40 No 1{table QD Crestor 40 MG MG t} MG Chromium Chromium No 1{capsu QD Chromium 200 MCG 200 MCG le} 200 MCG Olopatadine Olopatadine No Olopatadin HCl 0.6 % HCl 0.6 % e HCl 0.6 % Accu-Chek Accu-Chek No BID Accu-Chek Claire Plus Claire Plus Claire Plus - - - Famotidine Famotidine No 1{table QD Famotidine 40 MG 40 MG t_at_be 40 MG dtime} CoQ-10 CoQ-10 No CoQ-10 Meclizine Meclizine No Meclizine HCl 25 MG HCl 25 MG HCl 25 MG Accu-Chek Accu-Chek No Accu-Chek Softclix Softclix Softclix Lancets - Lancets - Lancets - Accu-Chek Accu-Chek No BID Accu-Chek Claire Plus Claire Plus Claire Plus - - - Montelukast Montelukast No Montelukas Sodium 10 Sodium 10 t Sodium MG MG 10 MG Vitamin D2 Vitamin D2 No Vitamin D2 Accu-Chek Accu-Chek No BID Accu-Chek Softclix Softclix Softclix Lancets - Lancets - Lancets - Nasacort Nasacort No 2{spray QD Nasacort Allergy Allergy _in_eac Allergy 24HR 55 24HR 55 h_nostr 24HR 55 MCG/ACT MCG/ACT il} MCG/ACT amLODIPine amLODIPine No 1{table QD amLODIPine Besylate Besylate t} Besylate 2.5 MG 2.5 MG 2.5 MG Odette Odette No QD Odette Allergy 180 Allergy 180 Allergy MG MG 180 MG PreserVisio PreserVisio No PreserVisi n AREDS n AREDS on AREDS Lisinopril Lisinopril No 1{table QD Lisinopril 40 MG 40 MG t} 40 MG Align Align No Align Accu-Chek Accu-Chek No BID Accu-Chek Claire Plus Claire Plus Claire Plus - - - Crestor 40 Crestor 40 No 1{table QD Crestor 40 MG MG t} MG Euthyrox 50 Euthyrox 50 No Euthyrox MCG MCG 50 MCG Magnesium Magnesium No Magnesium Glycinate Glycinate Glycinate Chromium Chromium No 1{capsu QD Chromium 200 MCG 200 MCG le} 200 MCG Olopatadine Olopatadine No Olopatadin HCl 0.6 % HCl 0.6 % e HCl 0.6 % Accu-Chek Accu-Chek No BID Accu-Chek Claire Plus Claire Plus Claire Plus - - - Famotidine Famotidine No 1{table QD Famotidine 40 MG 40 MG t_at_be 40 MG dtime} Montelukast Montelukast No Montelukas Sodium 10 Sodium 10 t Sodium MG MG 10 MG Meclizine Meclizine No Meclizine HCl 25 MG HCl 25 MG HCl 25 MG Accu-Chek Accu-Chek No Accu-Chek Softclix Softclix Softclix Lancets - Lancets - Lancets - CoQ-10 CoQ-10 No CoQ-10 Zinc 50 MG Zinc 50 MG No 1{table QD Zinc 50 MG t} Vitamin D2 Vitamin D2 No Vitamin D2 Accu-Chek Accu-Chek No BID Accu-Chek Softclix Softclix Softclix Lancets - Lancets - Lancets - Accu-Chek Accu-Chek No BID Accu-Chek Claire Plus Claire Plus Claire Plus - - - Align Align No Align Olopatadine Olopatadine No Olopatadin HCl 0.6 % HCl 0.6 % e HCl 0.6 % Montelukast Montelukast No Montelukas Sodium 10 Sodium 10 t Sodium MG MG 10 MG Nasacort Nasacort No 2{spray QD Nasacort Allergy Allergy _in_eac Allergy 24HR 55 24HR 55 h_nostr 24HR 55 MCG/ACT MCG/ACT il} MCG/ACT Vitamin D2 Vitamin D2 No Vitamin D2 Famotidine Famotidine No 1{table QD Famotidine 40 MG 40 MG t_at_be 40 MG dtime} Chromium Chromium No 1{capsu QD Chromium 200 MCG 200 MCG le} 200 MCG Odette Odette No QD Odette Allergy 180 Allergy 180 Allergy MG MG 180 MG Accu-Chek Accu-Chek No BID Accu-Chek Softclix Softclix Softclix Lancets - Lancets - Lancets - Accu-Chek Accu-Chek No BID Accu-Chek Claire Plus Claire Plus Claire Plus - - - Euthyrox 50 Euthyrox 50 No Euthyrox MCG MCG 50 MCG Zinc 50 MG Zinc 50 MG No 1{table QD Zinc 50 MG t} Meclizine Meclizine No Meclizine HCl 25 MG HCl 25 MG HCl 25 MG Lisinopril Lisinopril No 1{table QD Lisinopril 40 MG 40 MG t} 40 MG CoQ-10 CoQ-10 No CoQ-10 amLODIPine amLODIPine No 1{table QD amLODIPine Besylate Besylate t} Besylate 2.5 MG 2.5 MG 2.5 MG PreserVisio PreserVisio No PreserVisi n AREDS n AREDS on AREDS Accu-Chek Accu-Chek No Accu-Chek Softclix Softclix Softclix Lancets - Lancets - Lancets - Magnesium Magnesium No Magnesium Glycinate Glycinate Glycinate Crestor 40 Crestor 40 No 1{table QD Crestor 40 MG MG t} MG Accu-Chek Accu-Chek No BID Accu-Chek Claire Plus Claire Plus Claire Plus - - - Align Align No Align Olopatadine Olopatadine No Olopatadin HCl 0.6 % HCl 0.6 % e HCl 0.6 % Montelukast Montelukast No Montelukas Sodium 10 Sodium 10 t Sodium MG MG 10 MG Nasacort Nasacort No 2{spray QD Nasacort Allergy Allergy _in_eac Allergy 24HR 55 24HR 55 h_nostr 24HR 55 MCG/ACT MCG/ACT il} MCG/ACT Vitamin D2 Vitamin D2 No Vitamin D2 Famotidine Famotidine No 1{table QD Famotidine 40 MG 40 MG t_at_be 40 MG dtime} Chromium Chromium No 1{capsu QD Chromium 200 MCG 200 MCG le} 200 MCG Odette Odette No QD Odette Allergy 180 Allergy 180 Allergy MG MG 180 MG Accu-Chek Accu-Chek No BID Accu-Chek Softclix Softclix Softclix Lancets - Lancets - Lancets - Accu-Chek Accu-Chek No BID Accu-Chek Claire Plus Claire Plus Claire Plus - - - Euthyrox 50 Euthyrox 50 No Euthyrox MCG MCG 50 MCG Zinc 50 MG Zinc 50 MG No 1{table QD Zinc 50 MG t} Meclizine Meclizine No Meclizine HCl 25 MG HCl 25 MG HCl 25 MG Lisinopril Lisinopril No 1{table QD Lisinopril 40 MG 40 MG t} 40 MG CoQ-10 CoQ-10 No CoQ-10 amLODIPine amLODIPine No 1{table QD amLODIPine Besylate Besylate t} Besylate 2.5 MG 2.5 MG 2.5 MG PreserVisio PreserVisio No PreserVisi n AREDS n AREDS on AREDS Accu-Chek Accu-Chek No Accu-Chek Softclix Softclix Softclix Lancets - Lancets - Lancets - Magnesium Magnesium No Magnesium Glycinate Glycinate Glycinate Crestor 40 Crestor 40 No 1{table QD Crestor 40 MG MG t} MG Accu-Chek Accu-Chek No BID Accu-Chek Claire Plus Claire Plus Claire Plus - - - Align Align No Align Olopatadine Olopatadine No Olopatadin HCl 0.6 % HCl 0.6 % e HCl 0.6 % Montelukast Montelukast No Montelukas Sodium 10 Sodium 10 t Sodium MG MG 10 MG Nasacort Nasacort No 2{spray QD Nasacort Allergy Allergy _in_eac Allergy 24HR 55 24HR 55 h_nostr 24HR 55 MCG/ACT MCG/ACT il} MCG/ACT Vitamin D2 Vitamin D2 No Vitamin D2 Famotidine Famotidine No 1{table QD Famotidine 40 MG 40 MG t_at_be 40 MG dtime} Chromium Chromium No 1{capsu QD Chromium 200 MCG 200 MCG le} 200 MCG Odette Odette No QD Odette Allergy 180 Allergy 180 Allergy MG MG 180 MG Accu-Chek Accu-Chek No BID Accu-Chek Softclix Softclix Softclix Lancets - Lancets - Lancets - Accu-Chek Accu-Chek No BID Accu-Chek Claire Plus Claire Plus Claire Plus - - - Euthyrox 50 Euthyrox 50 No Euthyrox MCG MCG 50 MCG Zinc 50 MG Zinc 50 MG No 1{table QD Zinc 50 MG t} Meclizine Meclizine No Meclizine HCl 25 MG HCl 25 MG HCl 25 MG Lisinopril Lisinopril No 1{table QD Lisinopril 40 MG 40 MG t} 40 MG CoQ-10 CoQ-10 No CoQ-10 amLODIPine amLODIPine No 1{table QD amLODIPine Besylate Besylate t} Besylate 2.5 MG 2.5 MG 2.5 MG PreserVisio PreserVisio No PreserVisi n AREDS n AREDS on AREDS Accu-Chek Accu-Chek No Accu-Chek Softclix Softclix Softclix Lancets - Lancets - Lancets - Magnesium Magnesium No Magnesium Glycinate Glycinate Glycinate Crestor 40 Crestor 40 No 1{table QD Crestor 40 MG MG t} MG Chromium Chromium No 1{capsu QD Chromium 200 MCG 200 MCG le} 200 MCG Vitamin D2 Vitamin D2 No Vitamin D2 Meclizine Meclizine No Meclizine HCl 25 MG HCl 25 MG HCl 25 MG amLODIPine amLODIPine No 1{table QD amLODIPine Besylate Besylate t} Besylate 2.5 MG 2.5 MG 2.5 MG Euthyrox 50 Euthyrox 50 No Euthyrox MCG MCG 50 MCG PreserVisio PreserVisio No PreserVisi n AREDS n AREDS on AREDS Odette Odette No QD Odette Allergy 180 Allergy 180 Allergy MG MG 180 MG Famotidine Famotidine No 1{table QD Famotidine 40 MG 40 MG t_at_be 40 MG dtime} Accu-Chek Accu-Chek No QD Accu-Chek Softclix Softclix Softclix Lancets - Lancets - Lancets - Montelukast Montelukast No Montelukas Sodium 10 Sodium 10 t Sodium MG MG 10 MG CoQ-10 CoQ-10 No CoQ-10 Magnesium Magnesium No Magnesium Glycinate Glycinate Glycinate Crestor 40 Crestor 40 No 1{table QD Crestor 40 MG MG t} MG Nasacort Nasacort No 2{spray QD Nasacort Allergy Allergy _in_eac Allergy 24HR 55 24HR 55 h_nostr 24HR 55 MCG/ACT MCG/ACT il} MCG/ACT Zinc 50 MG Zinc 50 MG No 1{table QD Zinc 50 MG t} Olopatadine Olopatadine No Olopatadin HCl 0.6 % HCl 0.6 % e HCl 0.6 % Immunizations Ordered Immunization Filled Immunization Date Status Commen ts Source Name Name FluAD FluAD 2021-07-30 Completed [facility] 14:01:00 - [facility] Flu[facility] FluAD 2021-07-30 Completed [facility] 14::00 - [facility] FluAD FluAD 2021-07-30 Completed [facility] 14:01:00 - [facility] FluAD FluAD 2021-07-30 Completed [facility] 14::00 - [facility] FluAD FluAD 2021-07-30 Completed [facility] 14[facility]01:00 - [facility] FluAD FluAD 2021-07-30 Completed [facility] 14[facility]01:00 - [facility] FluAD FluAD 2021-07-30 Completed [facility] 14[facility]01:00 - [facility] FluAD FluAD 2021-07-30 Completed [facility] 14[facility]01:00 - [facility] FluAD FluAD 2021-07-30 Completed [facility] 14[facility]01:00 - [facility] FluAD FluAD 2021-07-30 Completed [facility] 14[facility]01:00 - [facility] FluAD FluAD 2021-07-30 Completed [facility] 14[facility]01:00 - [facility] FluAD FluAD 2021-07-30 Completed [facility] 14[facility]01:00 - [facility] FluAD FluAD 2021-07-30 Completed [facility] 14[facility]01:00 - [facility] FluAD FluAD 2021-07-30 Completed [facility] 14[facility]01:00 - [facility] FluAD FluAD 2021-07-30 Completed [facility] 14[facility]01:00 - [facility] FluAD FluAD 2021-07-30 Completed [facility] 14:01:00 - [facility] FluAD FluAD 2021-07-30 Completed [facility] 14::00 - [facility] FluAD FluAD 2021-07-30 Completed [facility] 14::00 - [facility] FluAD FluAD 2021-07-30 Completed [facility] 14::00 - [facility] FluAD FluAD 2021-07-30 Completed [facility] 14:01:00 - [facility] FluAD FluAD 2021-07-30 Completed [facility] 14:01:00 - [facility] FluAD FluAD 2021-07-30 Completed [facility] 14::00 - [facility] FluAD FluAD 2021-07-30 Completed [facility] 14::00 - [facility] FluAD FluAD 2021-07-30 Completed [facility] 14::00 - [facility] FluAD FluAD 2021-07-30 Completed [facility] 14::00 - [facility] FluAD FluAD 2021-07-30 Completed [facility] 14::00 - [facility] FluAD FluAD 2021-07-30 Completed [facility] 14::00 - [facility] FluAD FluAD 2021-07-30 Completed [facility] 14::00 - [facility] FluAD FluAD 2020-08-27 Completed [facility] 10:11:00 - [facility] FluAD FluAD 2020-08-27 Completed [facility] 10[facility]11:00 - [facility] FluAD FluAD 2020-08-27 Completed [facility] 10[facility]11:00 - [facility] FluAD FluAD 2020-08-27 Completed [facility] 10:11:00 - [facility] FluAD FluAD 2020-08-27 Completed [facility] 10[facility]11:00 - [facility] FluAD FluAD 2020-08-27 Completed [facility] 10:11:00 - [facility] FluAD FluAD 2020-08-27 Completed [facility] 10:11:00 - [facility] FluAD FluAD 2020-08-27 Completed [facility] 10[facility]11:00 - [facility] FluAD FluAD 2020-08-27 Completed [facility] 10[facility]11:00 - [facility] FluAD FluAD 2020-08-27 Completed [facility] 10[facility]11:00 - [facility] FluAD FluAD 2020-08-27 Completed [facility] 10:11:00 - [facility] FluAD FluAD 2020-08-27 Completed [facility] 10[facility]11:00 - [facility] FluAD FluAD 2020-08-27 Completed [facility] 10:11:00 - [facility] FluAD FluAD 2020-08-27 Completed [facility] 10[facility]11:00 - [facility] FluAD FluAD 2020-08-27 Completed [facility] 10:11:00 - [facility] FluAD FluAD 2020-08-27 Completed [facility] 10:11:00 - [facility] FluAD FluAD 2020-08-27 Completed [facility] 10:11:00 - [facility] FluAD FluAD 2020-08-27 Completed [facility] 10:11:00 - [facility] FluAD FluAD 2020-08-27 Completed [facility] 10:11:00 - [facility] FluAD FluAD 2020-08-27 Completed [facility] 10:11:00 - [facility] FluAD FluAD 2020-08-27 Completed [facility] 10:11:00 - [facility] FluAD FluAD 2020-08-27 Completed [facility] 10:11:00 - [facility] FluAD FluAD 2020-08-27 Completed [facility] 10:11:00 - [facility] FluAD FluAD 2020-08-27 Completed [facility] 10:11:00 - [facility] FluAD FluAD 2020-08-27 Completed [facility] 10:11:00 - [facility] FluAD FluAD 2020-08-27 Completed [facility] 10:11:00 - [facility] FluAD FluAD 2020-08-27 Completed [facility] 10:11:00 - [facility] FluAD FluAD 2020-08-27 Completed [facility] 10:11:00 - [facility] FluAD FluAD 2019-07-25 Completed [facility] 12[facility]27:00 - [facility] FluAD FluAD 2019-07-25 Completed [facility] 12:27:00 - [facility] FluAD FluAD 2019-07-25 Completed [facility] 12[facility]27:00 - [facility] FluAD FluAD 2019-07-25 Completed [facility] 12:27:00 - [facility] FluAD FluAD 2019-07-25 Completed [facility] 12:27:00 - [facility] FluAD FluAD 2019-07-25 Completed [facility] 12:27:00 - [facility] FluAD FluAD 2019-07-25 Completed [facility] 12:27:00 - [facility] FluAD FluAD 2019-07-25 Completed [facility] 12[facility]27:00 - [facility] FluAD FluAD 2019-07-25 Completed [facility] 12:27:00 - [facility] FluAD FluAD 2019-07-25 Completed [facility] 12:27:00 - [facility] FluAD FluAD 2019-07-25 Completed [facility] 12:27:00 - [facility] FluAD FluAD 2019-07-25 Completed [facility] 12:27:00 - [facility] FluAD FluAD 2019-07-25 Completed [facility] 12:27:00 - [facility] FluAD FluAD 2019-07-25 Completed [facility] 12::00 - [facility] FluAD FluAD 2019-07-25 Completed [facility] 12:27:00 - [facility] FluAD FluAD 2019-07-25 Completed [facility] 12[facility]27:00 - [facility] Flu[facility] FluAD 2019-07-25 Completed [facility] 12[facility]27:00 - [facility] Flu[facility] FluAD 2019-07-25 Completed [facility] 12[facility]27:00 - [facility] Flu[facility] FluAD 2019-07-25 Completed [facility] 12::00 - [facility] Flu[facility] FluAD 2019-07-25 Completed [facility] 12[facility]27:00 - [facility] Flu[facility] FluAD 2019-07-25 Completed [facility] 12:27:00 - [facility] Flu[facility] FluAD 2019-07-25 Completed [facility] 12[place]27[place]00 - [place] [facility] FluAD FluAD 2019-07-25 [facility] 12:27:00 - [facility] FluAD FluAD 2019-07-25 Completed [facility] 12:27:00 - [facility] FluAD FluAD 2019-07-25 Completed [facility] 12:27:00 - [facility] FluAD FluAD 2019-07-25 Completed [facility] 12:27:00 - [facility] FluAD FluAD 2019-07-25 Completed [facility] 12:27:00 - [facility] FluAD FluAD 2019-07-25 Completed [facility] 12:27:00 - [facility] FluAD FluAD 2019-07-25 Completed [facility] 00:00:00 - [facility] Pneumovax (PPSV23) Pneumovax (PPSV23) 2018-04-24 Completed [facility] 10:31:00 - [facility] Pneumovax (PPSV23) Pneumovax (PPSV23) 2018-04-24 Completed [facility] 10:31:00 - [facility] Pneumovax (PPSV23) Pneumovax (PPSV23) 2018-04-24 Completed [facility] 10:31:00 - [facility] Pneumovax (PPSV23) Pneumovax (PPSV23) 2018-04-24 Completed [facility] 10:31:00 [facility] Pneumovax (PPSV23) Pneumovax (PPSV23) 2018-04-24 Completed [facility] 10:31:00 - [facility] Pneumovax (PPSV23) Pneumovax (PPSV23) 2018-04-24 Completed [facility] 10:31:00 - [facility] Pneumovax (PPSV23) Pneumovax (PPSV23) 2018-04-24 Completed [facility] 10:31:00 [facility] Pneumovax (PPSV23) Pneumovax (PPSV23) 2018-04-24 Completed [facility] 10:31:00 [facility] Pneumovax (PPSV23) Pneumovax (PPSV23) 2018-04-24 Completed [facility] 10:31:00 [facility] Pneumovax (PPSV23) Pneumovax (PPSV23) 2018-04-24 Completed [facility] 10:31:00 - [facility] Pneumovax (PPSV23) Pneumovax (PPSV23) 2018-04-24 Completed [facility] 10:31:00 - [facility] Pneumovax (PPSV23) Pneumovax (PPSV23) 2018-04-24 Completed [facility] 10:31:00 - [facility] Pneumovax (PPSV23) Pneumovax (PPSV23) 2018-04-24 Completed [facility] 10:31:00 - [facility] Pneumovax (PPSV23) Pneumovax (PPSV23) 2018-04-24 Completed [facility] 10:31:00 - [facility] Pneumovax (PPSV23) Pneumovax (PPSV23) 2018-04-24 Completed [facility] 10:31:00 - [facility] Pneumovax (PPSV23) Pneumovax (PPSV23) 2018-04-24 Completed [facility] 10:31:00 - [facility] Pneumovax (PPSV23) Pneumovax (PPSV23) 2018-04-24 Completed [facility] 10:31:00 - [facility] Pneumovax (PPSV23) Pneumovax (PPSV23) 2018-04-24 Completed [facility] 10:31:00 - [facility] Pneumovax (PPSV23) Pneumovax (PPSV23) 2018-04-24 Completed [facility] 10:31:00 - [facility] Pneumovax (PPSV23) Pneumovax (PPSV23) 2018-04-24 Completed [facility] 10:31:00 - [facility] Pneumovax (PPSV23) Pneumovax (PPSV23) 2018-04-24 Completed [facility] 10:31:00 [facility] Pneumovax (PPSV23) Pneumovax (PPSV23) 2018-04-24 Completed [facility] 10:31:00 [facility] Pneumovax (PPSV23) Pneumovax (PPSV23) 2018-04-24 Completed [facility] 10:31:00 - [facility] Pneumovax (PPSV23) Pneumovax (PPSV23) 2018-04-24 Completed [facility] 10:31:00 - [facility] Pneumovax (PPSV23) Pneumovax (PPSV23) 2018-04-24 Completed [facility] 10:31:00 [facility] Pneumovax (PPSV23) Pneumovax (PPSV23) 2018-04-24 Completed [facility] 10:31:00 [facility] Pneumovax (PPSV23) Pneumovax (PPSV23) 2018-04-24 Completed [facility] 10:31:00 [facility] Pneumovax (PPSV23) Pneumovax (PPSV23) 2018-04-24 Completed [facility] 10:31:00 - [facility] Kenlorelei Le 2018-01-17 Completed [facility] (Triamcinolone) (Triamcinolone) 11:32:00 [facility] Kenalog Kenalog 2018-01-17 Completed [facility] (Triamcinolone) (Triamcinolone) 11:32:00 [facility] Vital Signs Vital Name Observation Time Observation Value Comments Source height 2022-07-13 08:40:00 68 [in_i] [facility] weight 2022-07-13 08:40:00 166.7 [lb_av] [facility] temperature 2022-07-13 08:40:00 97.9 [degF] [facility] bmi 2022-07-13 08:40:00 25.34 kg/m2 [facility] oximetry 2022-07-13 08:40:00 97 % [facility] respiratory rate 2022-07-13 08:40:00 16 /min Comm on [facility] blood pressure 2022-07-13 08:40:00 127 mm[Hg] [facility] - systolic [facility] blood pressure 2022-07-13 08:40:00 60 mm[Hg] [facility] - diastolic [facility] height 2022-06-23 11:20:00 68 [in_i] [facility] weight 2022-06-23 11:20:00 171.1 [lb_av] [facility] temperature 2022-06-23 11:20:00 97.7 [degF] [facility] bmi 2022-06-23 11:20:00 26.01 kg/m2 [facility] oximetry 2022-06-23 11:20:00 97 % [facility] respiratory rate 2022-06-23 11:20:00 16 /min [facility] blood pressure 2022-06-23 11:20:00 139 mm[Hg] [facility] - systolic [facility] blood pressure 2022-06-23 11:20:00 69 mm[Hg] [facility] - diastolic [facility] height 2022-06-02 08:20:00 68 [in_i] [facility] weight 2022-06-02 08:20:00 163 [lb_av] [facility] bmi 2022-06-02 08:20:00 24.78 kg/m2 [facility] height 2022-04-01 14:00:00 68 [in_i] [facility] weight 2022-04-01 14:00:00 161 [lb_av] [facility] bmi 2022-04-01 14:00:00 24.48 kg/m2 [facility] blood pressure 2022-04-01 14:00:00 126 mm[Hg] [facility] - systolic [facility] blood pressure 2022-04-01 14:00:00 78 mm[Hg] [facility] - diastolic [facility] bmi 2022-03-24 13:30:00 24.33 kg/m2 [facility] height 2022-03-24 13:30:00 68 [in_i] [facility] weight 2022-03-24 13:30:00 160 [lb_av] [facility] height 2022-03-02 16:40:00 68 [in_i] [facility] weight 2022-03-02 16:40:00 170.8 [lb_av] [facility] temperature 2022-03-02 16:40:00 97.6 [degF] [facility] bmi 2022-03-02 16:40:00 25.97 kg/m2 [facility] oximetry 2022-03-02 16:40:00 96 % [facility] respiratory rate 2022-03-02 16:40:00 16 /min [facility] on [facility] blood pressure 2022-03-02 16:40:00 138 mm[Hg] [facility] - systolic [facility] blood pressure 2022-03-02 16:40:00 58 mm[Hg] Common [facility] diastolic [facility] height 2022-02-10 08:40:00 68 [in_i] [facility] weight 2022-02-10 08:40:00 160 [lb_av] [facility] bmi 2022-02-10 08:40:00 24.33 kg/m2 [facility] height 2021-10-29 08:40:00 68 [in_i] [facility] weight 2021-10-29 08:40:00 166 [lb_av] [facility] temperature 2021-10-29 08:40:00 97.2 [degF] [facility] bmi 2021-10-29 08:40:00 25.24 kg/m2 [facility] oximetry 2021-10-29 08:40:00 98 % [facility] blood pressure 2021-10-29 08:40:00 132 mm[Hg] [facility] - systolic [facility] blood pressure 2021-10-29 08:40:00 63 mm[Hg] [facility] - diastolic [facility] height 2021-10-02 08:00:00 68 [in_i] [facility] weight 2021-10-02 08:00:00 156 [lb_av] [facility] bmi 2021-10-02 08:00:00 23.72 kg/m2 [facility] height 2021-07-30 13:00:00 68 [in_i] [facility] weight 2021-07-30 13:00:00 175.4 [lb_av] [facility] temperature 2021-07-30 13:00:00 97.5 [degF] [facility] bmi 2021-07-30 13:00:00 26.67 kg/m2 [facility] oximetry 2021-07-30 13:00:00 96 % [facility] respiratory rate 2021-07-30 13:00:00 16 /min [facility] blood pressure 2021-07-30 13:00:00 132 mm[Hg] [facility] - systolic [facility] blood pressure 2021-07-30 13:00:00 74 mm[Hg] [facility] - diastolic [facility] Systolic blood 2019-11-21 21:50:00 136 mm[Hg] [facility] pressure Medicine Diastolic blood 2019-11-21 21:50:00 76 mm[Hg] [facility] pressure Medicine Heart rate 2019-11-21 21:50:00 51 /min [facility] Body height 2019-11-21 21:50:00 172.7 cm [facility] Body weight 2019-11-21 21:50:00 72.576 kg [facility] BMI 2019-11-21 21:50:00 24.33 kg/m2 [facility] Systolic blood 2019-11-21 21:50:00 136 mm[Hg] [facility] pressure Medicine Diastolic blood 2019-11-21 21:50:00 76 mm[Hg] [facility] pressure Medicine Heart rate 2019-11-21 21:50:00 51 /min [facility] Body height 2019-11-21 21:50:00 172.7 cm [facility] Body weight 2019-11-21 21:50:00 72.576 kg [facility] BMI 2019-11-21 21:50:00 24.33 kg/m2 [facility] Procedures Procedure Date / Time Performed Performing Clinician Sournehemias e CYSTOSCOPY 2022-07-28 10:00:00 [facility] Medicine BLADDER WASHINGS 2022-07-28 09:40:10 [facility] ege of CYTOLOGY X2 Medicine POCT URINALYSIS 2022-07-28 00:00:00 [facility] DIPSTICK Medicine CULTURE, 2019-11-22 14:56:[address] [facility] ege of URINE/SENSITIVITY ON Medicine ALL Plan of Care Planned Activity Planned Date Details Comments Source Future Scheduled 2022-07-15 INFLUENZA VACCINE (#1) [facility] 00:[facility]:00 [code = INFLUENZA Medical Ce nter VACCINE (#1)] Future Scheduled 2021-11-[address] [facility] 00:00:00 (12+) [code = Medical Center DEPRESSION SCREENING (12+)] Future Scheduled 2021-11-14 FALLS RISK SCREENING [facility] 00:00:00 [code = FALLS RISK Medical C enter SCREENING] Future Scheduled 2020-10-[address] [facility] Test 00:00:00 Counseling and Medical Cente r Screening (12+) [code = Tobacco Cessation Counseling and Screening (12+)] Future Scheduled 2019-11-[address] [facility] [facility] 00:00:00 WELLNESS (YEAR 2 or Medical Center FIRST YEAR if no IPPE) [code = MEDICARE ANNUAL WELLNESS (YEAR 2 or FIRST YEAR if no IPPE)] Future Scheduled 2005 PNEUMOCOCCAL 65+ YRS [facility] Test 00:00:00 (1 - PCV) [code = Medical Ce nter PNEUMOCOCCAL 65+ YRS (1 - PCV)] Future Scheduled 1990 SHINGLES VACCINES ([address] [facility] Test 00:00:00 of 2) [code = SHINGLES Medic al Center VACCINES (1 of 2)] Future Scheduled 1959 DTAP/TDAP/TD VACCINES [facility] 00:00:00 (1 - Tdap) [code = Medical C enter DTAP/TDAP/TD VACCINES (1 - Tdap)] Future Scheduled 1941-04-07 COVID-19 VACCINE (#1) [facility] 00:00:00 [code = COVID-[address] VACCINE (#1)] Future Scheduled TETANUS SHOT (ADULT) [facility] of Test [code = TETANUS SHOT Medicin e (ADULT)] Future Scheduled FALL SCREEN [code = [facility] of Test FALL SCREEN] Medicine Future Scheduled PNEUMOVAX >=65 [facility] of Test (PPSV23) [code = Medicine PNEUMOVAX >=65 (PPSV23)] Future Scheduled PREVNAR >= 65 (PCV13) [facility] of Test [code = PREVNAR >= 65 Medici ne (PCV13)] Future Scheduled [facility] [[facility] = [facility] AWV Medicin e (Initial)] Future Scheduled FLU VACCINE > 6 MONTHS B [facility] of Test [code = FLU VACCINE > Medici ne 6 MONTHS] Encounters Start End Encounter Admission Attending Care Care Encounter Source Date/Time Date/Time Type Type Clinicians Facility Department ID 2022-06-23 Outpatient Kori Mccoy [facility] [id number] Common 10:50:01 [facility] 2022-05-31 Out[facility] [id number] 2 Common 08:13:01 [facility] 2022-04-01 Outpatient Kori Mccoy [facility] [id number] 2 Common 13:48:05 [facility] 2022-03-02 Outpatient Kori Mccoy [facility] [id number] 2 Common 16:19:00 [facility] 2022-02-08 Outpatient Mccoy, Na STLMLC STLMLC [id number] 2 Common 08:34:01 [facility] 2021-12-10 Outpatient Mccoy, Na STLMLC STLMLC [id number] 2 Common 15:36:00 [facility] 2021-12-09 Outpatient Mccoy, Na STLMLC STLMLC [id number] 2 Common 14:24:20 [id number] [facility] 2021-12-09 Outpatient Mccoy, Na STLMLC STLMLC [id number] 2 Common 14:15:28 [id number] [facility] 2021-12-09 Outpatient Mccoy, Na STLMLC STLMLC [id number] 2 Common 13:14:42 [id number] [facility] 2021-12-09 Outpatient Mccoy, Na STLMLC STLMLC [id number] 2 Common 13:05:10 [id number] [facility] 2021-12-09 Outpatient Mccoy, Na STLMLC STLMLC [id number] 2 Common 12:49:56 [id number] [facility] 2021-12-09 Outpatient Mccoy, Na STLMLC STLMLC [id number] 2 Common 12:36:00 [id number] [facility] 2021-12-09 Outpatient Mccoy, Na STLMLC STLMLC [id number] 2 Common 12:33:13 [id number] [facility] 2021-12-09 Outpatient Mccoy, Na STLMLC STLMLC [id number] 2 Common 12:32:16 [id number] [facility] 2021-12-09 Outpatient Mccoy, Na STLMLC STLMLC [id number] 2 Common 12:11:40 [id number] [facility] 2021-12-09 Outpatient Mccoy, Na STLMLC STLMLC [id number] 2 Common 12:07:56 [id number] [facility] 2021-12-09 Outpatient Mccoy, Na STLMLC STLMLC [id number] 2 Common 11:43:48 [id number] [facility] 2021-12-09 Outpatient Kori Mccoy STL[facility]C STLMLC [id number] 2 Common 11:39:42 [id number] [facility] 2022-10-05 2022-10-05 (TEL) STLMLC STLMLC [id number] Co mmon 00:00:00 00:00:00 [facility] 2022-09-14 2022-09-14 (TEL) STLMLC STLMLC [id number] Co mmon 00:00:00 00:00:00 [facility] 2022-07-29 2022-07-29 (TEL) STLMLC STLMLC [id number] Co mmon 00:00:00 00:00:00 [facility] 2022-07-28 2022-07-28 Outpatient DONI LEZAMA BC [id number] [facility] 09:05:37 16:32:46 LEAH urrutia of Medicin e 2022-07-16 2022-07-16 (TEL) STLMLC STLMLC [id number] Co mmon 00:00:00 00:00:00 [facility] 2022-07-14 2022-07-14 (TEL) STLMLC STLMLC [id number] Co mmon 00:00:00 00:00:00 [facility] 2022-07-13 2022-07-13 OFFICE STLMLC STLMLC [id number] [facility] 00:00:00 00:00:00 [facility] PT - CHI LEVEL 4 [facility] 2022-06-29 2022-06-29 (TEL) STLMLC STLMLC [id number] Co mmon 00:00:00 00:00:00 [facility] 2022-06-23 2022-06-23 OFFICE STLMLC STLMLC [id number] [facility] m[facility] 00:00:00 00:00:00 VISIT EST Spir it PT LEVEL 3 - [facility] 2022-06-22 2022-06-22 (TEL) STLMLC STLMLC [id number] [facility] 00:00:00 00:00:00 [facility] 2022-06-02 2022-06-02 (TEL) STLMLC STLMLC [id number] [facility] 00:00:00 00:00:00 [facility] 2022-06-02 2022-06-02 OFFICE STLMLC STLMLC [id number] [facility] 00:00:00 00:00:00 VISIT [facility] ESTAB PT - CHI LEVEL 4 [facility] 2022-04-02 2022-04-02 (TEL) STLMLC STLMLC [id number] Co mmon 00:00:00 00:00:00 [facility] 2022-04-01 2022-04-01 OFFICE STLMLC STLMLC [id number] Co mmon 00:00:00 00:00:00 VISIT NEW Spir it PT LEVEL 4 - [facility] 2022-03-24 2022-03-24 OFFICE STLMLC STLMLC [id number] Co mmon 00:00:00 00:00:00 VISIT EST Spir it PT LEVEL 3 - [facility] 2022-03-19 2022-03-19 (TEL) STLMLC STLMLC [id number] [facility] m[facility] 00:00:00 00:00:00 [facility] 2022-03-12 2022-03-12 (TEL) STLMLC STLMLC [id number] [facility] m[facility] 00:00:00 00:00:00 [facility] 2022-03-08 2022-03-08 (TEL) STLMLC STLMLC [id number] [facility] 00:00:00 00:00:00 [facility] 2022-03-04 2022-03-04 (TEL) STLMLC STLMLC [id number] Co mmon 00:00:00 00:00:00 [facility] 2022-03-02 2022-03-02 OFFICE STLMLC STLMLC [id number] Co mmon 00:00:00 00:00:00 VISIT [facility] PT - CHI LEVEL 2 [facility] 2022-02-10 2022-02-10 (TEL) STLMLC STLMLC [id number] Co mmon 00:00:00 00:00:00 [facility] 2022-02-10 2022-02-10 OFFICE STLMLC STLMLC [id number] Co mmon 00:00:00 00:00:00 VISIT [facility] PT - CHI LEVEL 4 [facility] 2022-01-27 2022-01-27 Outpatient [facility] [id number] [facility] 08:30:50 11:41:46 [facility] 2022-01-27 2022-01-27 Outpatient REY [facility] [id number] [facility] 08:31:18 10:42:49 LEAH Nikita ege of Medicin e 2022-01-14 2022-01-14 (TEL) STLMLC STLMLC [id number] Co mmon 00:00:00 00:00:00 [facility] 2021-10-29 2021-10-29 OFFICE STLMLC STLMLC [id number] Co mmon 00:00:00 00:00:00 VISIT [facility] PT - CHI LEVEL 4 [facility] 2021-10-21 2021-10-21 Outpatient REY [facility] [id number] [facility] 09:21:49 10:40:52 LEAH Nikita ege of Medicin e 2021-10-21 2021-10-21 (TEL) STLMLC STLMLC [id number] Co m[facility] 00:00:00 00:00:00 [facility] 2021-10-02 2021-10-02 OFFICE STLMLC STLMLC [id number] Co m[facility] 00:00:00 00:00:00 VISIT EST Spir it PT LEVEL 3 - [facility] 2021-10-01 2021-10-01 (TEL) STLMLC STLMLC [id number] Co mmon 00:00:00 00:00:00 [facility] 2021-08-19 2021-08-19 (TEL) STLMLC STLMLC [id number] [facility] 00:00:00 00:00:00 [facility] 2021-07-30 2021-07-30 OFFICE STLMLC STLMLC [id number] Co mmon 00:00:00 00:00:00 VISIT [facility] LEVEL 4 [facility] 2021-07-13 2021-07-13 Outpatient STLMLC STLMLC [id number] Common 00:00:00 00:00:00 [facility] 2021-07-08 2021-07-08 Outpatient DONI LEZAMA BCM [id number] [facility] 10:18:53 11:40:29 LEAH Shelton ege of Medicin e 2021-07-06 2021-07-06 Outpatient STLMLC STLMLC [id number] Common 00:00:00 00:00:00 [facility] 2021-07-01 2021-07-01 Outpatient STLMLC STLMLC [id number] Common 00:00:00 00:00:00 [facility] 2021-06-01 2021-06-01 Outpatient STLMLC STLMLC [id number] Common 00:00:00 00:00:00 [facility] 2021-04-29 2021-04-29 Outpatient STLMLC STLMLC [id number] Common 00:00:00 00:00:00 [facility] 2021-03-10 2021-03-10 Outpatient STLMLC STLMLC [id number] Common 00:00:00 00:00:00 [facility] 2021-03-05 2021-03-05 Outpatient STLMLC STLMLC [id number] Common 00:00:00 00:00:00 [facility] 2021-02-17 2021-02-17 Outpatient STLMLC STLMLC [id number] Common 00:00:00 00:00:00 [facility] 2021-02-16 2021-02-16 Outpatient STLMLC STLMLC [id number] Common 00:00:00 00:00:00 [facility] 2021-02-12 2021-02-12 Outpatient STLMLC STLMLC [id number] Common 00:00:00 00:00:00 [facility] 2021-02-11 2021-02-11 Outpatient STLMLC STLMLC [id number] Common 00:00:00 00:00:00 [facility] 2021-01-21 2021-01-21 Outpatient STLMLC STLMLC [id number] Common 00:00:00 00:00:00 [facility] 2021-01-02 2021-01-02 Outpatient STLMLC STLMLC [id number] Common 00:00:00 00:00:00 [facility] 2020-10-24 2020-10-24 Outpatient STLMLC STLMLC [id number] Common 00:00:00 00:00:00 [facility] 2020-10-07 2020-10-07 Outpatient STLMLC STLMLC [id number] Common 00:00:00 00:00:00 [facility] 2020-10-07 2020-10-07 Outpatient STLMLC STLMLC [id number] Common 00:00:00 00:00:00 [facility] 2020-10-07 2020-10-07 Outpatient STLMLC STLMLC [id number] Common 00:00:00 00:00:00 [facility] 2020-08-27 2020-08-27 Outpatient STLMLC STLMLC [id number] Common 00:00:00 00:00:00 [facility] 2020-07-23 2020-07-23 [facility] [id number] Common 08:40:00 08:40:[place] [address] [facility] 2020-07-22 2020-07-22 Outpatient [facility] [id number] Common 17:01:00 17:01:00 [place] [address] [facility] 2020-07-07 2020-07-07 Outpatient [facility] [id number] Common 16:22:00 16:22:00 [place] [address] [facility] 2020-07-04 2020-07-04 Outpatient [facility] [id number] Common 11:20:00 11:20:00 [place] [address] [facility] 2020-07-04 2020-07-04 Outpatient [facility] [id number] Common 08:10:00 08:10:00 [place] [address] [facility] 2020-04-22 2020-04-22 Out[facility] [id number] Common 13:20:00 13:20:00 [place] [address] [facility] 2019-11-21 2019-11-21 Office Rey, DONI [id number] [facility] 14:51:13 16:43:49 Visit Leah AMBULATOR [id number] College Y [id number] Medi christopher 300 e 2019-11-21 2019-11-21 Office Lezama, BCM [id number] 14:51:13 16:43:49 Visit Leah AMBULATOR [id number] Y [id number] 300 2019-10-23 2019-10-23 Out[facility] [id number] Common 13:20:00 13:20:00 [place] [address] [facility] 2019-08-02 2019-08-02 Out[facility] [id number] Common 10:02:00 10:02:00 [place] [address] [facility] 2019-07-25 2019-07-25 [facility] [id number] Common 09:40:00 09:40:00 [place] [address] [facility] 2019-05-22 2019-05-22 Outpatient [facility] [id number] Common 09:20:00 09:20:00 [place] [address] [facility] 2019-04-24 2019-04-24 Out[facility] [id number] Common 09:40:00 09:40:00 [place] [address] [facility] 2019-02-01 2019-02-01 Out[facility] [id number] Common 09:30:00 09:30:00 [place] [address] [facility] 2019-01-16 2019-01-16 Out[facility] [id number] Common 09:25:00 09:25:00 [place] [address] [facility] 2018-12-18 2018-12-18 Out[facility] [id number] Common 13:34:00 13:34:00 [place] [address] [facility] 2018-12-18 2018-12-18 Out[facility] [id number] Common 09:00:00 09:00:00 [place] [address] [facility] 2018-12-15 2018-12-15 Out[facility] [id number] Common 10:47:00 10:47:00 [place] [address] [facility] 2018-10-24 2018-10-24 Out[facility] [id number] Common 08:30:00 08:30:00 [place] [address] [address] [facility] Results Test Description Test Time Test Comments Results Result Comments Source CULTURE, URINE/SENSITIVITY ON ALL 2019-11-24 12:08:02 Test Item Value Reference Range Interpretation Comme nts CULTURE, URINE/SENSITIVITY ON SPECIMEN NUMBER: CULTURE, URINE/SENSITIVITY ALL (test code = 2236) [id number] ON AL L SPECIMEN NUMBER: [id number] SPECI MEN COMMENT: URINE SOURCE: U RINE REPORT STATUS: FINAL F INAL REPORT: 11/24/2019 NO G ROWTH AFTER 36 HOURS INCUBATIO N Unless Otherwise Indic ated, All Testing Perform ed At: [facility], [address] [place] [address] 4 Mixing Tank Operator: Elliott Singh [id number] [place] [id number] [facility] [id number] 17:32:00Surgical Pathology Report Case: [id number] Authorizing Provider: Leah Lezama MD Collected: 10/30/2019 1037 Ordering Location: [facility] PERIOPERATIVE Received: 10/31/2019 0846 SERVICES Pathologist: Yan Hays MD Specimens: A) - Urinary Bladder, TUR, RIGHT LATERAL WALL TUMOR B) - Urinary Bladder, TUR, RIGHT LATERAL WALL TUMOR - BASE OF THE TUMOR A. 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 [id number] X 2Preoperative and postoperative diagnoses: bladder tumorA. [...] x 0.4 cm aggregate of irregular ware-red totan-pink rubbery tissue fragments admixed with blood clot. The specimen entirely submitted in cassettes B1-AB. JG/ewPerformed. POCT-GLUCOSE [id number] 06:24:00 Test Item Value Reference Range Interpretation Comments POC-GLUCOSE METER 76 mg/dL 70-110 : TESTED A T [facility] 67[address] ([place]) (test code = [place], 1538) [address]: Caustic Pump Operator/Techni jordana ID = [id number] for SEBASTIAN VALLE PH
[2022-10-08] MEDS ORDERED: METHYLPREDNISOLONE 125 MG INJ ONE (21:45)
--- NOTE | 2022-10-08 21:56 | EDPHYS ---
Physician Documentation [facility] Name: Noah Whyte Age: 82 yrs Sex: Male : 1940 Arrival Date: 10/08/2022 Time: 20:56 Bed 9 Private MD: ED Physician Zaire Alvarez HPI: 10/08 21:45 This 82 yrs old Male presents to ER via Ambulatory with complaints of Rash. cp 21:45 The patient's rash thought to be caused by an unknown cause. cp 21:45 The rash is located on the body diffusely. The rash can be described as urticarial. cp 21:45 Onset: The symptoms/episode began/occurred for past several weeks, started on lower cp legs and now spread to abdomen, chest and back. Associated signs and symptoms: Pertinent negatives: None. burning sensation, difficulty breathing, fever, swelling of lips, swelling of throat, swelling of tongue. Severity of symptoms: in the emergency department the symptoms are unchanged despite home interventions. Historical: - Allergies: 21:06 Clarithromycin; ll3 21:06 Levofloxacin; ll3 - Home Meds: 21:06 amlodipine 2.5 mg tab 1 tab as needed for systolic >140 [Active]; famotidine 40 mg Oral ll3 tab 1 tab once daily [Active]; levothyroxine 25 mcg tab 1 tab once daily [Active]; lisinopril 40 mg Oral tab 1 tab once daily [Active]; montelukast 10 mg Oral tab 1 tab once daily [Active]; rosuvastatin 40 mg Oral tab 1 tab once daily [Active]; tamsulosin 0.4 mg Oral cap 1 cap once daily [Active]; patadine Nasal spray twice a day [Active]; - PMHx: 21:06 Anemia; Bladder Tumor - Cancer; GERD; High Cholesterol; Hypertension; Hypothyroidism; ll3 Vertigo; - PSHx: 21:06 cataract repair; TURP; ll3 - Immunization history:: Client reports receiving the 2nd dose of the Covid vaccine. - Social history:: Smoking status: Patient denies any tobacco usage or history of. ROS: 21:50 Constitutional: Negative for body aches, chills, fever, poor PO intake. cp 21:50 Eyes: Negative for injury, pain, redness, and discharge. cp 21:50 ENT: Negative for drainage from ear(s), ear pain, sore throat, difficulty swallowing, difficulty handling secretions. 21:50 Cardiovascular: Negative for chest pain, edema, palpitations. 21:50 Respiratory: Negative for cough, shortness of breath, wheezing. 21:50 Abdomen/GI: Negative for abdominal pain, nausea, vomiting, and diarrhea, constipation. 21:50 Skin: Positive for rash, diffusely. 21:50 Neuro: Negative for altered mental status, dizziness, headache, weakness. 21:50 All other systems are negative. Exam: 21:53 Constitutional: The patient appears in no acute distress, alert, awake, cp non-diaphoretic, non-toxic, well developed, well nourished. 21:53 Head/Face: Normocephalic, atraumatic. cp 21:53 Eyes: Periorbital structures: appear normal, Conjunctiva: normal, no exudate, no injection, Sclera: no appreciated abnormality, Lids and lashes: appear normal, bilaterally. 21:53 ENT: External ear(s): are unremarkable, Nose: is normal, Mouth: Lips: moist, Oral mucosa: pink and intact, moist, Posterior pharynx: Airway: no evidence of obstruction, patent. 21:53 Cardiovascular: Rate: normal, Rhythm: regular, Edema: is not appreciated, JVD: is not appreciated. 21:53 Respiratory: the patient does not display signs of respiratory distress, Respirations: normal, no use of accessory muscles, no retractions, labored breathing, is not present, Breath sounds: are clear throughout, no decreased breath sounds, no stridor, no wheezing. 21:53 Abdomen/GI: Exam negative for discomfort, distension, guarding, Inspection: abdomen appears normal. 21:53 Skin: cellulitis, is not appreciated, consistent with urticaria, and is diffusely located. 21:53 Neuro: Orientation: to person, place \T\ time. Mentation: is normal. Vital Signs: 21:01 BP 152 / 95; Pulse 79; Resp 16; Temp 98.6(TE); Weight 73.48 kg (R); Height 5 ft. 8 in. ll3 (172.72 cm) (R); 21:01 Body Mass Index 24.63 (73.48 kg, 172.72 cm) ll3 MDM: 21:16 Patient medically screened. cp 21:56 Data reviewed: vital signs, nurses notes, and as a result, I will discharge patient. cp Administered Medications: 22:08 Drug: SOLU-Medrol (methylPREDNISolone sodium succinate) 125 mg Route: IM; Site: left tw5 ventrogluteal; 22:08 Follow up: Response: No adverse reaction; Medication administered at discharge. tw5 Disposition Summary: 10/08/22 21:56 Discharge Ordered Location: Home cp Problem: new cp Symptoms: are unchanged cp Condition: Stable cp Diagnosis - Urticaria, unspecified cp Followup: cp - With: Private Physician - When: 2 - 3 days - Reason: Recheck today's complaints Discharge Instructions: - Discharge Summary Sheet cp - Hives cp Forms: - Medication Reconciliation Form cp - Thank You Letter cp - Antibiotic Education cp - Prescription Opioid Use cp Prescriptions: - Prednisone 20 mg Oral Tablet - take 2 tablets by ORAL route once daily for 5 days; 10 tablet; Refills: 0, cp Product Selection Permitted Signatures: Wally Goel PA PA cp Holly Arguello tw5 Brittany Mendez RN RN ll3 Corrections: (The following items were deleted from the chart) 21:09 21:06 Home Meds: pantoprazole 40 mg Oral TbEC 1 tab once daily; ll3 ll3
--- NOTE | 2022-10-08 21:56 | ER ---
Nurse's Notes [facility] Name: Noah Whyte Age: 82 yrs Sex: Male : 1940 Arrival Date: 10/08/2022 Time: 20:56 Bed 9 Private MD: Diagnosis: Urticaria, unspecified Presentation: 10/08 21:01 Chief complaint: Patient states: "I believe Im having an allergic reaction, pt states ll3 noticed a rash on bilateral lower legs for the past few weeks, yesterday I noticed the rash starting to spreading all over my body". Coronavirus screen: Vaccine status: Patient reports receiving the 2nd dose of the covid vaccine. At this time, the client does not indicate any symptoms associated with coronavirus-19. Ebola Screen: No symptoms or risks identified at this time. Initial Sepsis Screen: Does the patient meet any 2 criteria? No. Patient's initial sepsis screen is negative. Does the patient have a suspected source of infection? No. Patient's initial sepsis screen is negative. Risk Assessment: Do you want to hurt yourself or someone else? Patient reports no desire to harm self or others. Onset of symptoms was July 13, 2022. 21:01 Method Of Arrival: Ambulatory ll3 21:01 Acuity: JAIMIE 3 ll3 Triage Assessment: 21:06 General: Appears in no apparent distress. uncomfortable, Behavior is calm, cooperative. ll3 Pain: Denies pain. Neuro: Level of Consciousness is awake, alert, obeys commands, Oriented to person, place, time, situation. Respiratory: Respiratory effort is even, unlabored, Respiratory pattern is regular, symmetrical. Derm: Rash noted that is on back, chest, abdomen, right arm, left arm, right leg and left leg Denies itching, pain. Musculoskeletal: Circulation, motion, and sensation intact. Historical: - Allergies: 21:06 Clarithromycin; ll3 21:06 Levofloxacin; ll3 - Home Meds: 21:06 amlodipine 2.5 mg tab 1 tab as needed for systolic >140 [Active]; famotidine 40 mg Oral ll3 tab 1 tab once daily [Active]; levothyroxine 25 mcg tab 1 tab once daily [Active]; lisinopril 40 mg Oral tab 1 tab once daily [Active]; montelukast 10 mg Oral tab 1 tab once daily [Active]; rosuvastatin 40 mg Oral tab 1 tab once daily [Active]; tamsulosin 0.4 mg Oral cap 1 cap once daily [Active]; patadine Nasal spray twice a day [Active]; - PMHx: 21:06 Anemia; Bladder Tumor - Cancer; GERD; High Cholesterol; Hypertension; Hypothyroidism; ll3 Vertigo; - PSHx: 21:06 cataract repair; TURP; ll3 - Immunization history:: Client reports receiving the 2nd dose of the Covid vaccine. - Social history:: Smoking status: Patient denies any tobacco usage or history of. Screenin:08 Abuse screen: Denies threats or abuse. Denies injuries from another. Nutritional tw5 screening: No deficits noted. Tuberculosis screening: No symptoms or risk factors identified. Fall Risk None identified. Assessment: 22:08 Derm: Rash noted that is urticaria, on abdomen, right leg and left leg. tw5 Vital Signs: 21:01 BP 152 / 95; Pulse 79; Resp 16; Temp 98.6(TE); Weight 73.48 kg (R); Height 5 ft. 8 in. ll3 (172.72 cm) (R); 21:01 Body Mass Index 24.63 (73.48 kg, 172.72 cm) ll3 ED Course: 20:56 Patient arrived in ED. bp1 21:06 Triage completed. ll3 21:06 Arm band placed on. ll3 21:15 Wally Goel PA is PHCP. cp 21:15 Zaire Alvarez MD is Attending Physician. cp 21:41 Holly Arguello is Primary Nurse. tw5 22:08 Patient has correct armband on for positive identification. tw5 22:08 No provider procedures requiring assistance completed. Patient did not have IV access tw5 during this emergency room visit. Administered Medications: 22:08 Drug: SOLU-Medrol (methylPREDNISolone sodium succinate) 125 mg Route: IM; Site: left tw5 ventrogluteal; 22:08 Follow up: Response: No adverse reaction; Medication administered at discharge. tw5 Medication: 22:08 VIS not applicable for this client. tw5 Outcome: 21:56 Discharge ordered by . cp 22:08 Discharged to home ambulatory. tw5 22:08 Condition: good 22:08 Discharge instructions given to patient, Instructed on discharge instructions, follow up and referral plans. medication usage, Demonstrated understanding of instructions, follow-up care, medications, Prescriptions given X 1. 22:09 Patient left the ED. tw5 Signatures: Wally Goel PA PA cp [place], Brittany bp1 Wood, Tiffany tw5 Brittany Menedz, RN RN ll3 Corrections: (The following items were deleted from the chart) 21:09 21:06 Home Meds: pantoprazole 40 mg Oral TbEC 1 tab once daily; ll3 ll3
[2022-10-08 22:13] VITALS: BP 152/95; TEMP 98.6
== END 2022-10-08 22:09 | disposition home or self-care (01) ==
LOC: ER 20:52
DX: L50.9 Urticaria, unspecified (principal); I10 Essential (primary) hypertension; Z88.1 Allergy status to other antibiotic agents; Z88.3 Allergy status to other anti-infective agents
CPT/HCPCS: 96372; 99283; J2930

== ENCOUNTER 2022-11-30 19:54 | Emergency (ER) | payer OTHER ==
--- OUTSIDE RECORDS SUMMARY | 2022-11-30 20:03 | XMS REPORT | Continuity of Care Document ---
:1940 Author Organization [facility] t Address [address] [place] [address] Care Team Providers Name Role Phone Kori Mccoy DO Primary Care Physician Kori Mccoy Attending Clinician Unavailable NBA ENGLE Attending Clinician Unavailable Nba Engle MD Attending Clinician LEAH LE Attending Clinician Unavailable Leah Le MD Attending Clinician LEAH LE Attending Clinician Unavailable LEAH LE Admitting Clinician Unavailable Payers Payer Name Policy Type Policy Number Effective Date Expiration Date S ource ERS MEDICARE [id number] 2020 [facility] 00:00:00 YOSEFERS MEDICARE [id number] [facility] [employer] 1 [id number] 2022 Common TRS/ERS [facility] PPO 00:00:00 [facility] Problems Condition Condition Condition Status Onset Resolution Last Treating Co mments Source Name Details Category Date Date Treatment Clinician Date Lower Lower Disease Active [facility] urinary urinary 2-10 College tract tract 00:00: of symptoms symptoms 00 Medici n (LUTS) (LUTS) e Adult BMI Adult BMI Disease Active [facility] 26.0-26.9 26.0-26.9 07-02 [facility] ege kg/sq m kg/sq m 00:00: of 00 Medicin e Controlled Controlled Disease [facility] type 2 type 2 07-02 [place] diabetes diabetes 00:00: of mellitus mellitus 00 Medici n without without e complicati complicati on, on, without without long-term long-term current current use of use of insulin insulin Gastro-eso Gastro-eso Disease Active [facility] phageal phageal 07-02 [place] reflux reflux 00:00: of disease disease 00 Medicin without without e esophagiti esophagiti s s Foreign Foreign Disease Active [facility] body in body in 07-02 [place] left ear, left ear, 00:00: of initial initial 00 Medicin encounter encounter e Medication Medication Disease Active [facility] side side 07-02 [place] effect effect 00:00: of 00 Medicin e Pneumococc Pneumococc Disease Active muna al al 07-02 [place] vaccinatio vaccinatio 00:00: of n n 00 Medicin administer administer e ed at ed at current current visit visit Adult Adult Disease Active [facility] general general 07-02 [place] medical medical 00:00: of exam exam 00 Medicin e Primary Primary Disease Active [facility] generalize generalize 07-02 Co llege d d 00:00: of (osteo)art (osteo)art 00 Me dicin hritis hritis e Proteinuri Proteinuri Disease Active muna a, a, 07-02 [place] unspecifie unspecifie 00:00: of d d 00 Medicin e Restless Restless Disease Active [facility] leg leg 07-02 [place] syndrome syndrome 00:00: of 00 Medicin e Serum Serum Disease Active [facility] total total 07-02 [place] bilirubin bilirubin 00:00: of elevated elevated 00 Medici n e Type 2 Type 2 Disease Active [facility] diabetes diabetes 07-02 Colleg e mellitus mellitus 00:00: of with other with other 00 Me dicin diabetic diabetic e kidney kidney complicati complicati on on Malignant Malignant Disease Active [facility] neoplasm neoplasm 8-19 Colleg e of lateral of lateral 00:00: of wall of wall of 00 Medicin urinary urinary e bladder bladder Acute Acute Disease Active [facility] right-side right-side - Co llege d back d back 00:00: of pain with pain with 00 Medi christopher sciatica sciatica e Allergic Allergic Disease Active 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 r prostate prostate 03-26 [facility] e specific specific 00:00: of antigen antigen 00 Medicin (PSA) (PSA) e History of History of Disease Active [facility] insect insect [address] [place] [address] sting sting 00:00: of allergy allergy 00 Medicin e Hyponatrem Hyponatrem Disease Active B muna ia ia 03-26 [place] 00:00: of 00 Medicin e Hypothyroi Hypothyroi Disease Active Maverick toro dism dism 03-26 [place] (acquired) (acquired) 00:00: of 00 Medicin e Prediabete Prediabete Disease [facility] s s [address] 00:00: of 00 Medicin e Mass of Mass of Disease Active [facility] urinary urinary 03-26 [place] bladder bladder 00:00: of 00 Medicin e Lymphangit Lymphangit Disease Active [facility] toro is is [address] [place] [address] 00:00: of 00 Medicin e Microscopi Microscopi Disease [facility] c c [address] [place] [address] hematuria hematuria 00:00: of 00 Medicin e Varicose Varicose Disease Active [facility] r vein of vein of 5-13 College leg leg 00:00: of 00 Medicin e Iron Iron Disease Active [facility] deficiency deficiency 5-13 Co llege anemia anemia 00:00: of 00 Medicin e Leukocytop Leukocytop Disease Active B muna early enia 5-13 College 00:00: of 00 Medicin e Encounter Encounter Disease Active [facility] for for 1-22 College follow-up follow-up 00:00: of surveillan surveillan 00 Me dicin ce of ce of e 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 [facility] neoplasm neoplasm 1-08 Colleg e of of 00:00: of overlappin overlappin 00 Me dicin g sites of g sites of e bladder bladder 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 -17 [facility] 00:00: Medical 00 Center Pre-diabet Pre-diabet Disease Active B muna bustamante es 6-27 [facility] 00:00: of 00 Medicin e Coronary Coronary Disease Active 2014-11 [facility] [facility] atheroscle atheroscle 2-11 Co llege rosis rosis 00:00: of 00 Medicin e Neoplasm Neoplasm Disease Active 2014-11 [facility] r of skin of skin 2-11 [place] 00:00: of 00 Medicin e Essential Essential Disease Active 2014-11 [facility] hypertensi hypertensi 0-28 Co llege on on 00:00: of 00 Medicin e Hyperlipid Hyperlipid Disease Active 2014-11 B muna emabraham with emia with 0-28 [facility] ege target low target low 00:00: of density density 00 Medicin lipoprotei lipoprotei e n (LDL) n (LDL) cholestero cholestero l less l less than 130 than 130 mg/dL mg/dL [id number] Pneumococc Problem Co mmon al [facility] vaccinatio - [facility] n St administer [facility] ed at Medical [facility] Center visit Primary Primary Problem Common generalise generalize Sp kacy d d - [facility] osteoarthr (osteo)art [id number] Gastro-eso Problem Co mmon phageal [facility] reflux - [facility] disease [facility] History of History of Problem C ommon insect insect Spirit sting sting - [facility] allergy allergy [facility] [id number] Adult BMI Problem Com mon 26.0-26.9 Spirit kg/sq m - [facility] [id number] Upper Problem Common respirator [facility] y tract - [facility] infection, 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 Spirit obs/LUTS - [facility] [id number] Urothelial Problem Co mmon carcinoma Spirit of bladder - [facility] [id number] Lumbago Problem Commo n with Spirit sciatica, [facility] left side [facility] [id number] Lumbago Problem Comm on with Spirit sciatica, - [facility] right side [facility] [id number] Dupuytren Problem Com mon contractur Spirit e [facility] [id number] Pernicious Problem Com mon anemia [facility] [id number] Diverticul Problem Co mmon osis Spirit [facility] Sciatica Back pain Problem Comm on with Spirit left-sided - CHI sciatica [facility] [id number] 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 - [facility] spine [facility] Allergies, Adverse Reactions, Alerts Allergy Allergy Status Severity Reaction(s) Onset Inactive Treating Comm ents Source Name Type Date Date Clinician Andreas Zarate Active Other [facility] omycin ty to 5-13 reaction( College adverse 00:00: s): of reaction 00 diarrhea, Medic in s to bad e drug taste, dizziness Levoflox Drug Active 2018-11 [facility] St acin Intolera 12-25 [facility] Levaquin Propensi Active 2018-11 [facility] ty to 2-11 reaction( College adverse 00:00: s): of reaction 00 severe Medicin s to leg e drug cramps Levoflox Propensi Active 2018-11 Other [facility] acin ty to 2-11 reaction( College adverse 00:00: s): of reaction 00 severe Medicin s to leg e drug cramps andreas andersen Active diarrhea, Com mon omycin omycin bad taste, Spirit dizziness [facility] [id number] Drug Active severe leg Common allergy cramps [facility] Social History Social Habit Start Date Stop Date Quantity Comments Source History of Common [facility] - Tobacco Use [facility] Exposure to 2022-11-15 2022-11-25 Not sure [facility] Josephg e SARS-CoV-2 00:00:00 12:07:00 of Medicine (event) History SDNJ 2022-11-18 2022-11-18 2 [facility] ge Physical Activity 00:00:00 00:00:00 of Medi cine DPW History SDNJ 2022-11-18 2022-11-18 3 [facility] ge Physical Activity 00:00:00 00:00:00 of Medi cine MPS Tobacco Comment 2022-07-28 2022-07-28 7 [facility] Co llege 00:00:00 00:00:00 of Medicine Alcohol intake 2019-10-31 2019-10-31 Current drinker [facility] 00:00:[facility] 00[facility] (finding) Tobacco use and 2019-10-29 2019-10-29 Never used [facility] exposure 00:00:00 00:00:00 Medical Center Sex Ass[birth year] At [birth year] [facility] 00:00:00 00:00:00 [facility] Center Smoking Status Start Date Stop Date Source Never Smoker [facility] Medications Ordered Filled Start Stop Current Ordering Indication Dosage Frequency Signature Comments Components Source Medication Medication Date Date Medication? Clinician (SIG) Name Name Evelyn Yes Take by [facility] min 11-25 mouth. College (VITAMIN 12:35: of B-12 OR) 01 Medicin e ferrous 325mg Take 325 Bayl or sulfate 325 11-25 mg by Colleg e (65 Fe) MG 12:35: 00:00 mouth of tablet 01 :00 daily. Medicin e sodium Yes 1g Take 1 g [facility] chloride 1 12 by mouth 3 Col lege g tablet 12:32: times of 45 daily. Medicin e Blood Yes one [facility] Glucose 12 College Monitoring 12:32: of Suppl 45 Medicin (FREESTYLE e LITE) [place] montelukast Yes 1 tablet [facility] (SINGULAIR) 1-12 College 10 MG 12:32: of tablet 45 Medicin e Zinc 50 MG Yes 1{tbl} 1 Tablet. [facility] TABS 11-25 [place] 12:32: of 45 Medicin e Ferrous Ferrous 2021-11 No 1{table QD Ferrous Sulfate 325 Sulfate 325 1-25 t} Sulfate (65 Fe) MG (65 Fe) MG 00:00: 325 (65 00 Fe) MG Ferrous Ferrous 2021-11 No 1{table QD Ferrous Sulfate 325 Sulfate 325 1-25 t} Sulfate (65 Fe) MG (65 Fe) MG 00:00: 325 (65 00 Fe) MG Ferrous Ferrous 2021-11 No 1{table QD Ferrous Sulfate 325 Sulfate 325 1-25 t} Sulfate (65 Fe) MG (65 Fe) MG 00:00: 325 (65 00 Fe) MG Ferrous Ferrous 2021-11 No 1{table QD Ferrous Sulfate 325 Sulfate 325 1-25 t} Sulfate (65 Fe) MG (65 Fe) MG 00:00: 325 (65 00 Fe) MG Ferrous Ferrous 2021-11 No 1{table QD Ferrous Sulfate 325 Sulfate 325 1-25 t} Sulfate (65 Fe) MG (65 Fe) MG 00:00: 325 (65 00 Fe) MG Cyclobenzap Cyclobenzap 2021- No 1{table QD Cyclobenza rine HCl 5 rine HCl 5 -13 08-14 t_at_be gulshan HCl MG MG 00:00: 00:00 dtime_a 5 MG 00 :00 s_neede d} Cyclobenzap Cyclobenzap 2021- No 1{table QD Cyclobenza rine HCl 5 rine HCl 5 07-13-14 t_at_be gulshan HCl MG MG 00:00: 00:00 dtime_a 5 MG 00 :00 s_neede d} Cyclobenzap Cyclobenzap 2021- No 1{table QD Cyclobenza rine HCl 5 rine HCl 5 -13 08-14 t_at_be gulshan HCl MG MG 00:00: 00:00 dtime_a 5 MG 00 :00 s_neede d} Tamsulosin Yes TAKE 1 Baylo r HCl 0.4 MG 8-28 CAPSULE BY Col lege CAPS 00:00: MOUTH ONCE of 00 DAILY AT Medicin BEDTIME e Toradol Toradol 2021-0 No 15mg Common (Ketorolac) (Ketorolac) 8-10 S pirit 00:00: - [facility]I 00 [facility] Mmii Mejiaalog 2021-0 No 40mg Common (Triamcinol (Triamcinol 8-10 S pirit one) one) 00:00: - [facility] Toradol Toradol 2021-0 No 15mg Common (Ketorolac) (Ketorolac) 8-10 S pirit 00:00: - [facility]I 00 [facility] Mimi Kenalog 2021-0 No 40mg Common (Triamcinol (Triamcinol 8-10 S pirit one) one) 00:00: - [facility] Toradol Toradol 2021-0 No 15mg Common (Ketorolac) (Ketorolac) 8-10 S pirit 00:00: - [facility] Mimi Kenalog 2021-0 No 40mg Common (Triamcinol (Triamcinol 8-10 S pirit one) one) 00:00: - [facility] Toradol Toradol 2021-0 No 15mg Common (Ketorolac) (Ketorolac) 8-10 S pirit 00:00: - [facility] Mimi Kenlorelei 2021-0 No 40mg Common (Triamcinol (Triamcinol 8-10 S pirit one) one) 00:00: - [facility] Toradol Toradol 2021-0 No 15mg Common (Ketorolac) (Ketorolac) 8-10 S pirit 00:00: - CHI 00 [facility] Mimi Kenalog 2021-0 No 40mg Common (Triamcinol (Triamcinol 8-10 S pirit one) one) 00:00: - [facility] Toradol Toradol 2021-0 No 15mg Common (Ketorolac) (Ketorolac) 8-10 S pirit 00:00: - [facility] Mimi Kenalog 2021-0 No 40mg Common (Triamcinol (Triamcinol 8-10 S pirit one) one) 00:00: - CHI 00 [facility] Toradol Toradol 2021-0 No 15mg Common (Ketorolac) (Ketorolac) 8-10 S pirit 00:00: - CHI 00 [facility] Kenalog Kenalog 2021-0 No 40mg Common (Triamcinol (Triamcinol 8-10 S pirit one) one) 00:00: - CHI 00 [facility] Toradol Toradol 2021-0 No 15mg Common (Ketorolac) (Ketorolac) 8-10 S pirit 00:00: - CHI 00 [facility] Kenalog Kenalog 2021-0 No 40mg Common (Triamcinol (Triamcinol 8-10 S pirit one) one) 00:00: - CHI 00 [facility] Toradol Toradol 2021-0 No 15mg Common (Ketorolac) (Ketorolac) 8-10 S pirit 00:00: - CHI 00 [facility] Kenlorelei Kenalog 2021-0 No 40mg Common (Triamcinol (Triamcinol 8-10 S pirit one) one) 00:00: - CHI 00 [facility] Toradol Toradol 2021-0 No 15mg Common (Ketorolac) (Ketorolac) 8-10 S pirit 00:00: - CHI 00 [facility] Kenalog Kenalog 2021-0 No 40mg Common (Triamcinol (Triamcinol 8-10 S pirit one) one) 00:00: - CHI 00 [facility] Toradol Toradol 2021-0 No 15mg Common (Ketorolac) (Ketorolac) 8-10 S pirit 00:00: - CHI 00 [facility] Kenalog Kenalog 2021-0 No 40mg Common (Triamcinol (Triamcinol 8-10 S pirit one) one) 00:00: - CHI 00 [facility] Toradol Toradol 2021-0 No 15mg Common (Ketorolac) (Ketorolac) 8-10 S pirit 00:00: - CHI 00 [facility] Kenalog Kenalog 2021-0 No 40mg Common (Triamcinol (Triamcinol 8-10 S pirit one) one) 00:00: - CHI 00 [facility] Toradol Toradol 2021-0 No 15mg Common (Ketorolac) (Ketorolac) 8-10 S pirit 00:00: - CHI 00 [facility] Kenalog Kenalog 2021-0 No 40mg Common (Triamcinol (Triamcinol 8-10 S pirit one) one) 00:00: - CHI 00 [facility] Toradol Toradol 2021-0 No 15mg Common (Ketorolac) (Ketorolac) 8-10 S pirit 00:00: - CHI 00 [facility] Kenalog Kenalog 2021-0 No 40mg Common (Triamcinol (Triamcinol 8-10 S pirit one) one) 00:00: - CHI 00 [facility] methylPREDN methylPREDN 2021-0 2021- No QD methylPRED ISolone 4 ISolone 4 8-10 08-16 NISolone 4 MG MG 00:00: 00:00 MG 00 :00 methylPREDN methylPREDN 2021-0 2021- No QD methylPRED ISolone 4 ISolone 4 8-10 08-16 NISolone 4 MG MG 00:00: 00:00 MG 00 :00 Celestone Celestone 2021-0 No 6mg Com mon Soluspan Soluspan 5-19 Spirit (Betamethas (Betamethas 00:00: - CHI one) one) 00 [facility] Celestone Celestone 2021-0 No 6mg Com mon Soluspan Soluspan 5-19 Spirit (Betamethas (Betamethas 00:00: - CHI one) one) 00 [facility] Lidocaine Lidocaine 2021-0 No 10mg Com mon 5-19 [facility] 00:00: - [facility]I 00 [facility] Lidocaine Lidocaine 2-0 No 10mg Com mon 5-19 [facility] 00:00: - CHI 00 [facility] Celestone Celestone 2021-0 No 6mg Com mon Soluspan Soluspan 5-19 Spirit (Betamethas (Betamethas 00:00: - CHI one) one) 00 [facility] Celestone Celestone 2021-0 No 6mg Com mon Soluspan Soluspan 5-19 Spirit (Betamethas (Betamethas 00:00: - CHI one) one) 00 [facility] Lidocaine Lidocaine 2-0 No 10mg Com mon - Spirit 00:00: - CHI 00 [facility] Lidocaine Lidocaine 2-0 No 10mg Com mon - Spirit 00:00: - [facility]I 00 [facility] Celestone Celestone 2-0 No 6mg Com mon Soluspan Soluspan 5-19 Spirit (Betamethas (Betamethas 00:00: - CHI one) one) 00 [facility] Celestone Celestone 2-0 No 6mg Com mon Soluspan Soluspan 5-19 Spirit (Betamethas (Betamethas 00:00: - CHI one) one) 00 [facility] Lidocaine Lidocaine 2-0 No 10mg Com mon - Spirit 00:00: - [facility]I 00 [facility] Lidocaine Lidocaine 2-0 No 10mg Com mon - Spirit 00:00: - [facility]I 00 [facility] Celestone Celestone 2-0 No 6mg Com mon Soluspan Soluspan 5-19 Spirit (Betamethas (Betamethas 00:00: - CHI one) one) 00 [facility] Celestone Celestone 2-0 No 6mg Com mon Soluspan Soluspan 5-19 Spirit (Betamethas (Betamethas 00:00: - CHI one) one) 00 [facility] Lidocaine Lidocaine 2-0 No 10mg Com mon - Spirit 00:00: - CHI 00 [facility] Lidocaine Lidocaine 2-0 No 10mg Com mon - Spirit 00:00: - [facility]I 00 [facility] Celestone Celestone 2-0 No 6mg Com mon Soluspan Soluspan 5-19 Spirit (Betamethas (Betamethas 00:00: - CHI one) one) 00 [facility] Celestone Celestone 2-0 No 6mg Com mon Soluspan Soluspan 5-19 Spirit (Betamethas (Betamethas 00:00: - CHI one) one) 00 [facility] Lidocaine Lidocaine 2-0 No 10mg Com mon 04-01 [facility] 00:00: - CHI 00 [facility] Lidocaine Lidocaine 2-0 No 10mg Com mon 5- Spirit 00:00: - CHI 00 [facility] Celestone Celestone 2021-0 No 6mg Com mon Soluspan Soluspan 5-19 Spirit (Betamethas (Betamethas 00:00: - CHI one) one) 00 [facility] Celestone Celestone 2021-0 No 6mg Com mon Soluspan Soluspan 5-19 Spirit (Betamethas (Betamethas 00:00: - CHI one) one) 00 [facility] Lidocaine Lidocaine 2-0 No 10mg Com mon - Spirit 00:00: - CHI 00 [facility] Lidocaine Lidocaine 2-0 No 10mg Com mon 5- Spirit 00:00: - CHI 00 [facility] Celestone Celestone 2-0 No 6mg Com mon Soluspan Soluspan 5-19 Spirit (Betamethas (Betamethas 00:00: - CHI one) one) 00 [facility] Celestone Celestone 2021-0 No 6mg Com mon Soluspan Soluspan 5-19 Spirit (Betamethas (Betamethas 00:00: - CHI one) one) 00 [facility] Lidocaine Lidocaine 2-0 No 10mg Com mon - Spirit 00:00: - CHI 00 [facility] Lidocaine Lidocaine 2-0 No 10mg Com mon 5- Spirit 00:00: - CHI 00 [facility] Celestone Celestone 2-0 No 6mg Com mon Soluspan Soluspan 5-19 Spirit (Betamethas (Betamethas 00:00: - CHI one) one) 00 [facility] Celestone Celestone 2-0 No 6mg Com mon Soluspan Soluspan 5-19 Spirit (Betamethas (Betamethas 00:00: - CHI one) one) 00 [facility] Lidocaine Lidocaine 2-0 No 10mg Com mon 5- Spirit 00:00: - CHI 00 [facility] Lidocaine Lidocaine 2-0 No 10mg Com mon 5- Spirit 00:00: - CHI 00 [facility] Celestone Celestone 2-0 No 6mg Com mon Soluspan Soluspan 5-19 Spirit (Betamethas (Betamethas 00:00: - CHI one) one) 00 [facility] Lidocaine Lidocaine 2021-0 No 10mg Com mon 5- Spirit 00:00: - CHI 00 [facility] Lidocaine Lidocaine 2021-0 No 10mg Com mon 5- Spirit 00:00: - CHI 00 [facility] Celestone Celestone 2021-0 No 6mg Com mon Soluspan Soluspan 5-19 Spirit (Betamethas (Betamethas 00:00: - CHI one) one) 00 [facility] Celestone Celestone 2021-0 No 6mg Com mon Soluspan Soluspan 5-19 Spirit (Betamethas (Betamethas 00:00: - CHI one) one) 00 [facility] Lidocaine Lidocaine 2021-0 No 10mg Com mon - Spirit 00:00: - CHI 00 [facility] Lidocaine Lidocaine 2021-0 No 10mg Com mon 5- Spirit 00:00: - CHI 00 [facility] Celestone Celestone 2021-0 No 6mg Com mon Soluspan Soluspan 5-19 Spirit (Betamethas (Betamethas 00:00: - CHI one) one) 00 [facility] Celestone Celestone 2021-0 No 6mg Com mon Soluspan Soluspan 5-19 Spirit (Betamethas (Betamethas 00:00: - CHI one) one) 00 [facility] Lidocaine Lidocaine 2021-0 No 10mg Com mon - Spirit 00:00: - CHI 00 [facility] Lidocaine Lidocaine 2-0 No 10mg Com mon 5- Spirit 00:00: - CHI 00 [facility] Celestone Celestone 2021-0 No 6mg Com mon Soluspan Soluspan 5-19 Spirit (Betamethas (Betamethas 00:00: - CHI one) one) 00 [facility] Celestone Celestone 2021-0 No 6mg Com mon Soluspan Soluspan 5-19 Spirit (Betamethas (Betamethas 00:00: - CHI one) one) 00 [facility] Lidocaine Lidocaine 2022-0 No 10mg Com mon - Spirit 00:00: - CHI 00 [facility] Lidocaine Lidocaine 2-0 No 10mg Com mon - Spirit 00:00: - CHI 00 [facility] Celestone Celestone 2021-0 No 6mg Com mon Soluspan Soluspan 5-19 Spirit (Betamethas (Betamethas 00:00: - CHI one) one) 00 [facility] Celestone Celestone 2021-0 No 6mg Com mon Soluspan Soluspan 5-19 Spirit (Betamethas (Betamethas 00:00: - CHI one) one) 00 [facility] Lidocaine Lidocaine 2021-0 No 10mg Com mon 04-01 Spirit 00:00: - CHI 00 [facility] Lidocaine Lidocaine 2-0 No 10mg Com mon - Spirit 00:00: - CHI 00 [facility] Celestone Celestone 2021-0 No 6mg Com mon Soluspan Soluspan 5-19 Spirit (Betamethas (Betamethas 00:00: - CHI one) one) 00 [facility] Celestone Celestone 2021-0 No 6mg Com mon Soluspan Soluspan 5-19 Spirit (Betamethas (Betamethas 00:00: - CHI one) one) 00 [facility] Celestone Celestone 2-0 No 6mg Com mon Soluspan Soluspan 5-19 Spirit (Betamethas (Betamethas 00:00: - CHI one) one) 00 [facility] Lidocaine Lidocaine 2021-0 No 10mg Com mon 04-01 Spirit 00:00: - CHI 00 [facility] Lidocaine Lidocaine 2-0 No 10mg Com mon 04-01 [facility] 00:00: - CHI 00 [facility] Celestone Celestone 2-0 No 6mg Com mon Soluspan Soluspan 5-19 Spirit (Betamethas (Betamethas 00:00: - CHI one) one) 00 [facility] Celestone Celestone 2-0 No 6mg Com mon Soluspan Soluspan 5-19 Spirit (Betamethas (Betamethas 00:00: - CHI one) one) 00 [facility] Lidocaine Lidocaine 2-0 No 10mg Com mon - Spirit 00:00: - CHI 00 [facility] Lidocaine Lidocaine 2-0 No 10mg Com mon - Spirit 00:00: - [facility]I 00 [facility] Celestone Celestone 2-0 No 6mg Com mon Soluspan Soluspan 5-19 Spirit (Betamethas (Betamethas 00:00: - CHI one) one) 00 [facility] Celestone Celestone 2021-0 No 6mg Com mon Soluspan Soluspan 5-19 Spirit (Betamethas (Betamethas 00:00: - CHI one) one) 00 [facility] Lidocaine Lidocaine 2-0 No 10mg Com 04-01 [facility] 00:00: - [facility] 00 [facility] Lidocaine Lidocaine 2-0 No 10mg Com mon 04-01 [facility] 00:00: - [facility] 00 [facility] Celestone Celestone 2-0 No 6mg Com mon Soluspan Soluspan 5-19 [facility] (Betamethas (Betamethas 00:00: - CHI one) one) 00 [facility] Celestone Celestone 2021-0 No 6mg Com mon Soluspan Soluspan 5-19 [facility] (Betamethas (Betamethas 00:00: - CHI one) one) 00 [facility] Lidocaine Lidocaine 2-0 No 10mg Com 04-01 [facility] 00:00: - [facility] 00 [facility] Lidocaine Lidocaine 2-0 No 10mg Com 04-01 [facility] 00:00: - [facility] 00 [facility] Celestone Celestone 2-0 No 6mg Com mon Soluspan Soluspan 5-19 [facility] (Betamethas (Betamethas 00:00: - CHI one) one) 00 [facility] Celestone Celestone 2-0 No 6mg Com mon Soluspan Soluspan 5-19 [facility] (Betamethas (Betamethas 00:00: - CHI one) one) 00 [facility] Lidocaine Lidocaine 2-0 No 10mg Com 04-01 [facility] 00:00: - [facility] 00 [facility] Lidocaine Lidocaine 2-0 No 10mg Com mon 5-19 [facility] 00:00: - [facility] 00 [facility] Celestone Celestone 2-0 No 6mg Com mon Soluspan Soluspan 5-19 [facility] (Betamethas (Betamethas 00:00: - CHI one) one) 00 [facility] Celestone Celestone 2-0 No 6mg Com mon Soluspan Soluspan 5-19 [facility] (Betamethas (Betamethas 00:00: - CHI one) one) 00 [facility] Lidocaine Lidocaine 2-0 No 10mg Com mon - [facility] 00:00: - [facility] 00 [facility] Lidocaine Lidocaine 2-0 No 10mg Com mon 04-01 [facility] 00:00: - [facility] 00 [facility] Folic Acid Folic Acid 2022-0 2022- No [...] 00:00 00 :00 Folic Acid Folic Acid 2021-0 2022- No 1{table QD Folic Acid 1 MG 1 MG 03-19 t} 1 MG 00:00: 00:00 00 :00 Folic Acid Folic Acid 2021-0 2022- No 1{table QD Folic Acid 1 MG 1 MG 03-19 t} 1 MG 00:00: 00:00 00 :00 Folic Acid Folic Acid 2021-0 2022- No 1{table QD Folic Acid 1 MG 1 MG 03-19 t} 1 MG 00:00: 00:00 00 :00 Folic Acid Folic Acid 2021-0 202- No 1{table QD Folic Acid 1 MG 1 MG 03-19 t} 1 MG 00:00: 00:00 00 :00 Folic Acid Folic Acid 2021-0 2022- No 1{table QD Folic Acid 1 MG 1 MG 03-19 t} 1 MG 00:00: 00:00 00 :00 fexofenadin 2020-11 Yes [facility] e (ODETTE) [facility] [employer] 180 MG 00:00: of tablet 00 Medicin e Triamcinolo 2020-11 Yes [facility] ne 1-09 [facility] Acetonide 00:00: of 55 MCG/ACT 00 Medicin AERO e famotidine Yes 40mg Take 40 mg [facility] (PEPCID) 40 8-12 by mouth Nikita ege MG tablet 00:00: daily. of 00 Medicin e amLODIPine Yes [facility] Besylate-Ce 4-07 [facility] lecoxib 00:00: of 2.5-200 MG 00 Medicin TABS e Flomax 0.4 Flomax 0.4 2020-0 1- No 1{capsu QD Flomax 0.4 MG MG 3-10 08-19 le} MG 00:00: 00:00 00 :00 ACCU-CHEK 2020-0 Yes USE 1 [facility] CLAIRE PLUS 6-11 STRIP TO Colle ge 00:00: CHECK of 00 GLUCOSE Medicin TWICE e DAILY Accu-Chek Accu-Chek 2020-0 Yes Na Mccoy as Common Claire Plus Claire Plus 6-09 directed [facility] 00:00: - [facility] 00 [facility] Accu-Chek Yes as [facility] Softclix 04-22 directed [facility] Lancets 00:00: of MISC 00 Medicin e rosuvastati Yes [facility] n (CRESTOR) 04-21 [facility] 40 MG 00:00: of tablet Medicin e Olopatadine Yes [facility] HCl 0.6 % 04-09 [place] SOLN 00:00: of 00 Medicin e lisinopril Yes [facility] (PRINIVIL, 04-08 [place] ZESTRIL) 40 00:00: of MG tablet Medicin e pantoprazol 2018-11 Yes 40mg QD Take [address] [facility] [facility] 2-17 by [facility] (PROTONIX) 18:08: daily. Medic al [address] [place] [address] tablet levothyroxi 2018-11 Yes QD Take by [facility] 25 mcg 2-17 mouth [facility] Cap 18:08: daily . [address] 2018-11 Yes 10mg QD Take [address] (SINGULAIR) 2-17 by mouth [facility] 10 mg 18:08: nightly. Medical tablet [address] [place] [address] meclizine 2018-11 Yes 25mg QD Take [address] (ANTIVERT) 2-17 by mouth [facility] 25 MG 18:08: daily. Medical tablet [address] Missing or 2018-[address] [facility] Non-Formula 2-17 100mg QID, Grace kes ry 18:08: Zinc 50mg Medical Medication 13 daily, Center Coenzyme 10 BID, Vit D2 1000u daily, Align probiotic, Chromium 200mg daily, Areds 2caps daily. rosuvastati 2018-11 Yes 40mg QD Take [address] [facility] (CRESTOR) 2-17 by mouth [facility] 40 MG 18:08: daily. Medical tablet [address] [place] [address] pantoprazol 2018-11 Yes 40mg QD Take [address] [facility] 2-17 by mouth [facility] (PROTONIX) 18:08: daily. Medic al 40 MG [address] tablet levothyroxi 2018-11 Yes QD Take by [facility] 25 mcg 2-17 mouth [facility] Cap 18:08: daily . [address] 2018-11 Yes 10mg QD Take [address] (SINGULAIR) 2-17 by mouth [facility] 10 mg 18:08: nightly. Medical tablet [address] [place] [address] 2018-11 Yes 25mg QD Take [address] (ANTIVERT) 2-17 [facility] mouth [facility] 25 MG 18:08: daily. Medical tablet [address] [place] [address] or 2018-[address] [facility] Non-Formula 2-17 100mg QID, Grace kes ry 18:08: Zinc 50mg Medical Medication 13 daily, Center Coenzyme 10 BID, Vit D2 1000u daily, Align probiotic, Chromium 200mg daily, Areds 2caps daily. lisinopril 2018-11 Yes 40mg QD Take [address] (PRINIVIL,Z 2-17 by mouth [facility] ESTRIL) 40 18:08: daily. Medic al MG tablet [address] [place] [address] lisinopril 2018-11 Yes 40mg QD Take [address] (PRINIVIL,Z 2-17 by mouth [facility] ESTRIL) 40 18:08: daily. Medic al MG tablet [address] [place] [address] rosuvastati 2018-11 Yes 40mg QD Take [address] [facility] (CRESTOR) 2-17 by mouth [facility] 40 MG 18:08: daily. Medical tablet [address] [place] [address] pantoprazol 2018-11 Yes 40mg QD Take [address] [facility] 2-17 by mouth [facility] (PROTONIX) 18:08: daily. Medic al [address] [place] [address] tablet levothyroxi 2018-11 Yes QD Take by [facility] 25 mcg 2-17 mouth [facility] Cap 18:08: daily . [address] montelukast 2018-11 Yes 10mg QD Take [address] (SINGULAIR) 2-17 by mouth [facility] 10 mg 18:08: nightly. Medical tablet [address] [place] [address] 2018-11 Yes 25mg QD Take [address] (ANTIVERT) 2-17 [facility] mouth [facility] 25 MG 18:08: daily. Medical tablet [address] [place] [address] or 2018-[address] [facility] Non-Formula 2-17 100mg QID, Grace kes ry 18:08: Zinc 50mg Medical Medication 13 daily, Center Coenzyme 10 BID, Vit D2 1000u daily, Align probiotic, Chromium 200mg daily, [facility] 2caps daily. lisinopril 2018-11 Yes 40mg QD Take [address] (PRINIVIL,Z 2-17 by mouth [facility] ESTRIL) 40 18:08: daily. Medic al MG tablet [address] rosuvastati 2018-11 Yes 40mg QD Take [address] [facility] (CRESTOR) 2-17 by mouth [facility] 40 MG 18:08: daily. Medical tablet [address] sulfamethox 2018-11 Yes [id number] 1{tbl} Take 1 Tab [facility] azole-trime 2-11 by mouth Nikita ege thoprim 00:00: two times of (BACTRIM 00 daily. Medicin DS) 800-160 e MG per tablet [facility] [address] No 40mg Common (Triamcinol (Triamcinol 3-06 S pirit one) one) 00:00: - [facility] 00 [facility] [employer] 0 No 40mg [facility] (Triamcinol (Triamcinol 3-06 S pirit one) one) 00:00: - [facility]I 00 [facility] [employer] [facility] 0 No 40mg Common (Triamcinol (Triamcinol 3-06 S pirit one) one) 00:00: - [facility] 00 [facility] [employer] 0 No 40mg Common (Triamcinol (Triamcinol 3-06 S pirit one) one) 00:00: - [facility] 00 [facility] 2017-0 No 40mg Common (Triamcinol (Triamcinol 3-06 S pirit one) one) 00:00: - [facility] 00 [facility] 2017-0 No 40mg Common (Triamcinol (Triamcinol 3-06 S pirit one) one) 00:00: - [facility] 00 [facility] Kenalog 0 No 40mg Common (Triamcinol (Triamcinol 3-06 S pirit one) one) 00:00: - [facility] 00 [facility] Kenalog 2018-0 No 40mg Common (Triamcinol (Triamcinol 3-06 S pirit one) one) 00:00: - [facility] 00 [facility] Kenalog 2017-0 No 40mg Common (Triamcinol (Triamcinol 3-06 S pirit one) one) 00:00: - CHI 00 [facility] Kenalog Kenalog 2018-0 No 40mg Common (Triamcinol (Triamcinol 3-06 S pirit one) one) 00:00: - CHI 00 [facility] Kenalog Kenalog 2018-0 No 40mg Common (Triamcinol (Triamcinol 3-06 S pirit one) one) 00:00: - CHI 00 [facility] Kenalog Kenalog 2018-0 No 40mg Common (Triamcinol (Triamcinol 3-06 S pirit one) one) 00:00: - CHI 00 [facility] Kenalog Kenalog 2018-0 No 40mg Common (Triamcinol (Triamcinol 3-06 S pirit one) one) 00:00: - CHI 00 [facility] Kenalog Kenalog 2018-0 No 40mg Common (Triamcinol (Triamcinol 3-06 S pirit one) one) 00:00: - CHI 00 [facility] Kenalog Kenalog 2018-0 No 40mg Common (Triamcinol (Triamcinol 3-06 S pirit one) one) 00:00: - CHI 00 [facility] Kenalog Kenalog 2018-0 No 40mg Common (Triamcinol (Triamcinol 3-06 S pirit one) one) 00:00: - CHI 00 [facility] Kenalog Kenalog 2018-0 No 40mg Common (Triamcinol (Triamcinol 3-06 S pirit one) one) 00:00: - CHI 00 [facility] Kenalog Kenalog 2018-0 No 40mg Common (Triamcinol (Triamcinol 3-06 S pirit one) one) 00:00: - CHI 00 [facility] Kenalog Kenalog 2018-0 No 40mg Common (Triamcinol (Triamcinol 3-06 S pirit one) one) 00:00: - CHI 00 [facility] Kenalog Kenalog 2018-0 No 40mg Common (Triamcinol (Triamcinol 3-06 S pirit one) one) 00:00: - CHI 00 [facility] Kenalog Kenalog 2018-0 No 40mg Common (Triamcinol (Triamcinol 3-06 S pirit one) one) 00:00: - CHI 00 [facility] Mimi Mejiaalog 2018-0 No 40mg Common (Triamcinol (Triamcinol 3-06 S pirit one) one) 00:00: - CHI 00 [facility] Mimi Mejiaalog 2018-0 No 40mg Common (Triamcinol (Triamcinol 3-06 S pirit one) one) 00:00: - CHI 00 [facility] Mimi Mejiaalog 2018-0 No 40mg Common (Triamcinol (Triamcinol 3-06 S pirit one) one) 00:00: - CHI 00 [facility] Mimi Le 2018-0 No 40mg Common (Triamcinol (Triamcinol 3-06 S pirit one) one) 00:00: - CHI 00 [facility] Mimi Le 2018-0 No 40mg Common (Triamcinol (Triamcinol 3-06 S pirit one) one) 00:00: - CHI 00 [facility] Mimi Le 2018-0 No 40mg Common (Triamcinol (Triamcinol 3-06 S pirit one) one) 00:00: - CHI 00 [facility] Crestor 40 Crestor 40 No 1{table QD [...] 200 MCG 200 MCG le} 200 MCG Odtete Odette No QD Odette Allergy 180 Allergy [...] HCl 0.6 % e HCl 0.6 % Glucometer Glucometer Yes Na Mccoy one [facility] Levothyroxi Levothyroxi Yes Na Mccoy 1 tablet Common ne Sodium ne Sodium on an Spir it empty - CHI stomach in [facility] Lancets Lancets Yes Na Mccoy as Common directed [facility] Accu-Chek Accu-Chek Yes Na Mccoy as Co mmon Softclix Softclix directed Spi rit Lancets Lancets - [facility] Meclizine Meclizine Yes Na Mccoy TAKE 1 Common HCl HCl TABLET BY Spirit MOUTH - CHI THREE [facility] Mobic Mobic Yes Na Mccoy 1 tablet Common [facility] Euthyrox Euthyrox Yes Na Mccoy TAKE 1 Co mmon TABLET BY Spirit MOUTH ONCE - [facility]I DAILY IN [facility] ON Medical AN EMPTY Center STOMACH EpiPen EpiPen Yes Na Mccoy not Common 2-Gerald 2-Gerald defined [facility] Olopatadine Olopatadine Yes Na Mccoy 2 sprays Common HCl HCl in each [facility] nostril - CHI [facility] Meclizine Meclizine Yes Na Mccoy TAKE 1 Common HCl HCl TABLET BY [facility] MOUTH 3 - CHI TIMES A [facility] Levothyroxi Levothyroxi Yes Na Mccoy 1 tablet Common ne Sodium ne Sodium on an Spir it empty - CHI stomach in [facility] Cipro Cipro Yes Na Mccoy 1 tablet Common [facility] Augmentin Augmentin Yes Na Mccoy 1 tablet Common [facility] Crestor Crestor Yes Na Mccoy 1 tablet Co mmon [facility] Pantoprazol Pantoprazol Yes Na Mccoy 1 tablet Common e Sodium e Sodium [facility] blood blood Yes Na Mccoy as Common glucose glucose directed Spiri t test strip test strip - C HI [facility] Singulair Singulair Yes Na Mccoy 1 tablet [facility] Lisinopril Lisinopril Yes Na Mccoy 1 tablet [facility] Accu-Chek Accu-Chek No QD Accu-Chek Claire Plus [...] Claire Plus Claire Plus - - - Nasacort [...] 200 MCG 200 MCG le} 200 MCG PreserVisio PreserVisio No PreserVisi n AREDS n AREDS on AREDS Crestor 40 Crestor 40 No 1{table QD Crestor 40 MG MG t} MG Vitamin D2 Vitamin D2 No Vitamin D2 Accu-Chek Accu-Chek No QD Accu-Chek Claire Plus Claire Plus Claire Plus - - - Olopatadine Olopatadine No Olopatadin HCl 0.6 % HCl 0.6 % e HCl 0.6 % amLODIPine amLODIPine No 1{table QD amLODIPine Besylate Besylate t} Besylate 2.5 MG 2.5 MG 2.5 MG Meclizine Meclizine No Meclizine HCl 25 MG HCl 25 MG HCl 25 MG Nasacort Nasacort No 2{spray QD Nasacort Allergy Allergy _in_eac Allergy 24HR 55 24HR 55 h_nostr 24HR 55 MCG/ACT MCG/ACT il} MCG/ACT Folic Acid Folic Acid No Folic Acid 1 MG 1 MG 1 MG Euthyrox 50 Euthyrox 50 No Euthyrox [...] - Lancets - CoQ-10 CoQ-10 No CoQ-10 Align Align No Align Odette Odette No QD Odette Allergy 180 Allergy 180 Allergy MG MG 180 MG Magnesium Magnesium No Magnesium Glycinate Glycinate Glycinate Chromium Chromium No 1{capsu QD Chromium 200 MCG 200 MCG le} 200 MCG PreserVisio PreserVisio No PreserVisi n AREDS n AREDS on AREDS Crestor 40 Crestor 40 No 1{table QD Crestor 40 MG MG t} MG Vitamin D2 Vitamin D2 No Vitamin D2 Accu-Chek Accu-Chek No QD Accu-Chek Claire Plus Claire Plus Claire Plus - - - Olopatadine Olopatadine No Olopatadin HCl 0.6 % HCl 0.6 % e HCl 0.6 % amLODIPine amLODIPine No 1{table QD amLODIPine Besylate Besylate t} Besylate 2.5 MG 2.5 MG 2.5 MG Meclizine Meclizine No Meclizine HCl 25 MG HCl 25 MG HCl 25 MG Nasacort Nasacort No 2{spray QD Nasacort Allergy Allergy _in_eac Allergy 24HR 55 24HR 55 h_nostr 24HR 55 MCG/ACT MCG/ACT il} MCG/ACT Folic Acid Folic Acid No Folic Acid 1 MG 1 MG 1 MG Euthyrox 50 Euthyrox 50 No Euthyrox [...] - Lancets - CoQ-10 CoQ-10 No CoQ-10 Align Align No Align Odette Odette No QD Odette Allergy 180 Allergy 180 Allergy MG MG 180 MG Magnesium Magnesium No Magnesium Glycinate Glycinate Glycinate Chromium Chromium No 1{capsu QD Chromium 200 MCG 200 MCG le} 200 MCG PreserVisio PreserVisio No PreserVisi n AREDS n AREDS on AREDS Crestor 40 Crestor 40 No 1{table QD Crestor 40 MG MG t} MG Vitamin D2 Vitamin D2 No Vitamin D2 Accu-Chek Accu-Chek No QD Accu-Chek Claire Plus Claire Plus Claire Plus - - - Olopatadine Olopatadine No Olopatadin HCl 0.6 % HCl 0.6 % e HCl 0.6 % amLODIPine amLODIPine No 1{table QD amLODIPine Besylate Besylate t} Besylate 2.5 MG 2.5 MG 2.5 MG Meclizine Meclizine No Meclizine HCl 25 MG HCl 25 MG HCl 25 MG Nasacort Nasacort No 2{spray QD Nas[place]ort Allergy Allergy _in_eac Allergy 24HR 55 24HR 55 h_nostr 24HR 55 MCG/ACT MCG/ACT il} MCG/ACT Folic Acid Folic Acid No Folic Acid 1 MG 1 MG 1 MG Euthyrox 50 Euthyrox 50 No Euthyrox [...] - Lancets - CoQ-10 CoQ-10 No CoQ-10 Align Align No Align Odette Odette No QD Odette Allergy 180 Allergy 180 Allergy MG MG 180 MG Magnesium Magnesium No Magnesium Glycinate Glycinate Glycinate Chromium Chromium No 1{capsu QD Chromium 200 MCG 200 MCG le} 200 MCG PreserVisio PreserVisio No PreserVisi n AREDS n AREDS on AREDS Crestor 40 Crestor 40 No 1{table QD Crestor 40 MG MG t} MG Vitamin D2 Vitamin D2 No Vitamin D2 Olopatadine Olopatadine No Olopatadin HCl 0.6 % HCl 0.6 % e HCl 0.6 % amLODIPine amLODIPine No 1{table QD amLODIPine Besylate Besylate t} Besylate 2.5 MG 2.5 MG 2.5 MG Meclizine Meclizine No Meclizine HCl 25 MG HCl 25 MG HCl 25 MG Nasacort Nasacort No 2{spray QD Nasacort Allergy Allergy _in_eac Allergy 24HR 55 24HR 55 h_nostr 24HR 55 MCG/ACT MCG/ACT il} MCG/ACT Folic Acid Folic Acid No Folic Acid 1 MG 1 MG 1 MG Euthyrox 50 Euthyrox 50 No Euthyrox MCG MCG 50 MCG Zinc 50 MG Zinc 50 MG No 1{table QD Zinc 50 MG t} Accu-Chek Accu-Chek No Accu-Chek Claire Plus Claire Plus Claire Plus [...] - Lancets - CoQ-10 CoQ-10 No CoQ-10 Align Align No Align Odette Odette No QD Odette Allergy 180 Allergy 180 Allergy MG MG 180 MG Magnesium Magnesium No Magnesium Glycinate Glycinate Glycinate Chromium Chromium No 1{capsu QD Chromium 200 MCG 200 MCG le} 200 MCG PreserVisio PreserVisio No PreserVisi n AREDS n AREDS on AREDS Crestor 40 Crestor 40 No 1{table QD Crestor 40 MG MG t} MG Vitamin D2 Vitamin D2 No Vitamin D2 Olopatadine Olopatadine No Olopatadin HCl 0.6 % HCl 0.6 % e HCl 0.6 % amLODIPine amLODIPine No 1{table QD amLODIPine Besylate Besylate t} Besylate 2.5 MG 2.5 MG 2.5 MG Meclizine Meclizine No Meclizine HCl 25 MG HCl 25 MG HCl 25 MG Nasacort Nasacort No 2{spray QD Nasacort Allergy Allergy _in_eac Allergy 24HR 55 24HR 55 h_nostr 24HR 55 MCG/ACT MCG/ACT il} MCG/ACT Folic Acid Folic Acid No Folic Acid 1 MG 1 MG 1 MG Euthyrox 50 Euthyrox 50 No Euthyrox MCG MCG 50 MCG Zinc 50 MG Zinc 50 MG No 1{table QD Zinc 50 MG t} Accu-Chek Accu-Chek No Accu-Chek Claire Plus Claire Plus Claire Plus [...] - Lancets - CoQ-10 CoQ-10 No CoQ-10 Align Align No Align Odette Odette No [...] MG 2.5 MG EpiPen EpiPen No EpiPen 2-Gearld 0.3 2-Gerald 0.3 2-Gerald 0.3 MG/0.3ML MG/0.3ML [...] EpiPen No EpiPen 2-Gerald 0.3 2-Gerald 0.3 2-Geradl 0.3 MG/0.3ML MG/0.3ML MG/0.3ML Olopatadine Olopatadine No [...] strip EpiPen EpiPen No EpiPen 2-Gerald 0.3 2-Greald 0.3 2-Gerald 0.3 MG/0.3ML MG/0.3ML MG/0.3ML Olopatadine [...] No 1{table QD Zinc 50 MG t} Immunizations Ordered Immunization Filled Immunization Date Status Commen ts Source Name Name FluAD FluAD 2021-07-30 [facility] FluAD FluAD 2021-07-30 [facility] FluAD FluAD 2021-07-30 Completed [facility] - 14:01:00 [facility] FluAD FluAD 2021-07-30 [facility]pleted [facility] - 14:01:00 [facility] FluAD FluAD 2021-07-30 Completed [facility] - 14:01:00 [facility] FluAD FluAD 2021-07-30 Completed [facility] - 14:01:00 [facility] FluAD FluAD 2021-07-30 Completed [facility] - 14:01:00 [facility] FluAD FluAD 2021-07-30 Completed [facility] - 14:01:00 [facility] FluAD FluAD 2021-07-30 Completed [facility] - 14:01:00 [facility] FluAD FluAD 2021-07-30 Completed [facility] - 14:01:00 [facility] FluAD FluAD 2021-07-30 Completed [facility] - 14:01:00 [facility] FluAD FluAD 2021-07-30 Completed [facility] - 14:01:00 [facility] FluAD FluAD 2021-07-30 Completed [facility] - 14:01:00 [facility] FluAD FluAD 2021-07-30 Completed [facility] - 14:01:00 [facility] FluAD FluAD 2021-07-30 Completed [facility] - 14:01:00 [facility] FluAD FluAD 2021-07-30 Completed [facility] - 14:01:00 [facility] FluAD FluAD 2021-07-30 Completed [facility] - 14:01:00 [facility] FluAD FluAD 2021-07-30 Completed [facility] - 14:01:00 [facility] FluAD FluAD 2021-07-30 Completed [facility] - 14:01:00 [facility] FluAD FluAD 2021-07-30 Completed [facility] - 14:01:00 [facility] FluAD FluAD 2021-07-30 Completed [facility] - 14:01:00 [facility] FluAD FluAD 2021-07-30 Completed [facility] - 14:01:00 [facility] FluAD FluAD 2021-07-30 Completed [facility] - 14:01:00 [facility] FluAD FluAD 2021-07-30 Completed [facility] - 14:01:00 [facility] FluAD FluAD 2021-07-30 Completed [facility] - 14:01:00 [facility] FluAD FluAD 2021-07-30 Completed [facility] - 14:01:00 [facility] FluAD FluAD 2021-07-30 Completed [facility] - 14:01:00 [facility] FluAD FluAD 2021-07-30 Completed [facility] - 14:01:00 [facility] FluAD FluAD 2021-07-30 Completed [facility] - 14:01:00 [facility] FluAD FluAD 2021-07-30 Completed [facility] - 14:01:00 [facility] FluAD FluAD 2021-07-30 Completed [facility] - 14:01:00 [facility] FluAD FluAD 2021-07-30 Completed [facility] - 14:01:00 [facility] FluAD FluAD 2021-07-30 Completed [facility] - 14:01:00 [facility] Influenza Hd 2020-09-03 Completed [facility] Colle ge 00:00:00 of Medicine FluAD FluAD 2020-08-27 Completed [facility] - 10:11:00 [facility] FluAD FluAD 2020-08-27 Completed [facility] - 10:11:00 [facility] FluAD FluAD 2020-08-27 Completed [facility] - 10:11:00 [facility] FluAD FluAD 2020-08-27 Completed [facility] - 10:11:00 [facility] FluAD FluAD 2020-08-27 Completed [facility] - 10:11:00 [facility] FluAD FluAD 2020-08-27 Completed [facility] - 10:11:00 [facility] FluAD FluAD 2020-08-27 Completed [facility] - 10:11:00 [facility] FluAD FluAD 2020-08-27 Completed [facility] - 10:11:00 [facility] FluAD FluAD 2020-08-27 Completed [facility] - 10:11:00 [facility] FluAD FluAD 2020-08-27 Completed [facility] - 10:11:00 [facility] FluAD FluAD 2020-08-27 Completed [facility] - 10:11:00 [facility] FluAD FluAD 2020-08-27 Completed [facility] - 10:11:00 [facility] FluAD FluAD 2020-08-27 Completed [facility] - 10:11:00 [facility] FluAD FluAD 2020-08-27 Completed [facility] - 10:11:00 [facility] FluAD FluAD 2020-08-27 Completed [facility] - 10:11:00 [facility] FluAD FluAD 2020-08-27 Completed [facility] - 10:11:00 [facility] FluAD FluAD 2020-08-27 Completed [facility] - 10:11:00 [facility] FluAD FluAD 2020-08-27 Completed [facility] - 10:11:00 [facility] FluAD FluAD 2020-08-27 Completed [facility] - 10:11:00 [facility] FluAD FluAD 2020-08-27 Completed [facility] - 10:11:00 [facility] FluAD FluAD 2020-08-27 Completed [facility] - 10:11:00 [facility] FluAD FluAD 2020-08-27 Completed [facility] - 10:11:00 [facility] FluAD FluAD 2020-08-27 Completed [facility] - 10:11:00 [facility] FluAD FluAD 2020-08-27 Completed [facility] - 10:11:00 [facility] FluAD FluAD 2020-08-27 Completed [facility] - 10:11:00 [facility] FluAD FluAD 2020-08-27 Completed [facility] - 10:11:00 [facility] FluAD FluAD 2020-08-27 Completed [facility] - 10:11:00 [facility] FluAD FluAD 2020-08-27 Completed [facility] - 10:11:00 [facility] FluAD FluAD 2020-08-27 Completed [facility] - 10:11:00 [facility] FluAD FluAD 2020-08-27 Completed [facility] - 10:11:00 [facility] FluAD FluAD 2020-08-27 Completed [facility] - 10:11:00 [facility] FluAD FluAD 2020-08-27 Completed [facility] - 10:11:00 [facility] FluAD FluAD 2020-08-27 Completed [facility] - 10:11:00 [facility] FluAD FluAD 2019-07-25 Completed [facility] - 12:27:00 [facility] FluAD FluAD 2019-07-25 Completed [facility] - 12:27:00 [facility] FluAD FluAD 2019-07-25 Completed [facility] - 12:27:00 [facility] FluAD FluAD 2019-07-25 Completed [facility] - 12:27:00 [facility] FluAD FluAD 2019-07-25 Completed [facility] - 12:27:00 [facility] FluAD FluAD 2019-07-25 Completed [facility] - 12:27:00 [facility] FluAD FluAD 2019-07-25 Completed [facility] - 12:27:00 [facility] FluAD FluAD 2019-07-25 Completed [facility] - 12:27:00 [facility] FluAD FluAD 2019-07-25 Completed [facility] - 12:27:00 [facility] FluAD FluAD 2019-07-25 Completed [facility] - 12:27:00 [facility] FluAD FluAD 2019-07-25 Completed [facility] - 12:27:00 [facility] FluAD FluAD 2019-07-25 Completed [facility] - 12:27:00 [facility] FluAD FluAD 2019-07-25 Completed [facility] - 12:27:00 [facility] FluAD FluAD 2019-07-25 Completed [facility] - 12:27:00 [facility] FluAD FluAD 2019-07-25 Completed [facility] - 12:27:00 [facility] FluAD FluAD 2019-07-25 Completed [facility] - 12:27:00 [facility] FluAD FluAD 2019-07-25 Completed [facility] - 12:27:00 [facility] FluAD FluAD 2019-07-25 Completed [facility] - 12:27:00 [facility] FluAD FluAD 2019-07-25 Completed [facility] - 12:27:00 [facility] FluAD FluAD 2019-07-25 [facility]:00 [facility] FluAD FluAD 2019-07-25 Completed [facility] 12:[facility]:00 [facility] FluAD FluAD 2019-07-25 Completed [facility] 12:27:00 [facility] FluAD FluAD 2019-07-25 Completed [facility] - 12:27:00 [facility] FluAD FluAD 2019-07-25 Completed [facility] 12:27:00 [facility] FluAD FluAD 2019-07-25 Completed [facility] 12:27:00 [facility] FluAD FluAD 2019-07-25 Completed [facility] 12:27:00 [facility] FluAD FluAD 2019-07-25 Completed [facility] 12:27:00 [facility] FluAD FluAD 2019-07-25 Completed [facility] - 12:27:00 [facility] FluAD FluAD 2019-07-25 Completed [facility] 12:27:00 [facility] FluAD FluAD 2019-07-25 Completed [facility] - 12:27:00 [facility] FluAD FluAD 2019-07-25 Completed [facility] 12:27:00 [facility] FluAD FluAD 2019-07-25 Completed [facility] 12:27:00 [facility] FluAD FluAD 2019-07-25 Completed [facility] - 12:27:00 [facility] FluAD FluAD 2019-07-25 Completed [facility] - 00:00:00 [facility] Pneumovax (PPSV23) Pneumovax (PPSV23) 2018-04-24 Completed [facility] - 10:31:00 [facility] Pneumovax (PPSV23) Pneumovax (PPSV23) 2018-04-24 Completed [facility] 10:31:00 [facility] Pneumovax (PPSV23) Pneumovax (PPSV23) 2018-04-24 [facility]pleted [facility] 10:31:00 [facility] Pneumovax (PPSV23) Pneumovax (PPSV23) 2018-04-24 Completed [facility] 10:31:00 [facility] Pneumovax (PPSV23) Pneumovax (PPSV23) 2018-04-24 Completed [facility] 10:31:00 [facility] Pneumovax (PPSV23) Pneumovax (PPSV23) 2018-04-24 Completed [facility] 10:31:00 [facility] Pneumovax (PPSV23) Pneumovax (PPSV23) 2018-04-24 Completed [facility] 10:31:00 [facility] Pneumovax (PPSV23) Pneumovax (PPSV23) 2018-04-24 [facility]pleted [facility] 10:31:00 [facility] Pneumovax (PPSV23) Pneumovax (PPSV23) 2018-04-24 [facility]pleted [facility] 10:31:00 [facility] Pneumovax (PPSV23) Pneumovax (PPSV23) 2018-04-24 Completed [facility] 10:31:00 [facility] Pneumovax (PPSV23) Pneumovax (PPSV23) 2018-04-24 Completed [facility] 10:31:00 [facility] Pneumovax (PPSV23) Pneumovax (PPSV23) 2018-04-24 Completed [facility] 10:31:00 [facility] Pneumovax (PPSV23) Pneumovax (PPSV23) 2018-04-24 Completed [facility] 10:31:00 [facility] Pneumovax (PPSV23) Pneumovax (PPSV23) 2018-04-24 Completed [facility] 10:31:00 [facility] Pneumovax (PPSV23) Pneumovax (PPSV23) 2018-04-24 Completed [facility] 10:31:00 [facility] Pneumovax (PPSV23) Pneumovax (PPSV23) 2018-04-24 Completed [facility] 10:31:00 [facility] Pneumovax (PPSV23) Pneumovax (PPSV23) 2018-04-24 Completed [facility] 10:31:00 [facility] Pneumovax (PPSV23) Pneumovax (PPSV23) 2018-04-24 Completed [facility] 10:31:00 [facility] Pneumovax (PPSV23) Pneumovax (PPSV23) 2018-04-24 Completed [facility] 10:31:00 [facility] Pneumovax (PPSV23) Pneumovax (PPSV23) 2018-04-24 Completed [facility] 10:31:00 [facility] Pneumovax (PPSV23) Pneumovax (PPSV23) 2018-04-24 Completed [facility] 10:31:00 [facility] Pneumovax (PPSV23) Pneumovax (PPSV23) 2018-04-24 Completed [facility] 10:31:00 [facility] Pneumovax (PPSV23) Pneumovax (PPSV23) 2018-04-24 Completed [facility] 10:31:00 [facility] Pneumovax (PPSV23) Pneumovax (PPSV23) 2018-04-24 Completed [facility] 10:31:00 [facility] Pneumovax (PPSV23) Pneumovax (PPSV23) 2018-04-24 Completed [facility] 10:31:00 [facility] Pneumovax (PPSV23) Pneumovax (PPSV23) 2018-04-24 Completed [facility] 10:31:00 [facility] Pneumovax (PPSV23) Pneumovax (PPSV23) 2018-04-24 Completed [facility] 10:31:00 [facility] Pneumovax (PPSV23) Pneumovax (PPSV23) 2018-04-24 Completed [facility] 10:31:00 [facility] Pneumovax (PPSV23) Pneumovax (PPSV23) 2018-04-24 Completed [facility] 10:31:00 [facility] Pneumovax (PPSV23) Pneumovax (PPSV23) 2018-04-24 Completed [facility] 10:31:00 [facility] Pneumovax (PPSV23) Pneumovax (PPSV23) 2018-04-24 Completed [facility] 10:31:00 [facility] Pneumovax (PPSV23) Pneumovax (PPSV23) 2018-04-24 Completed [facility] 10:31:00 [facility] Pneumovax (PPSV23) Pneumovax (PPSV23) 2018-04-24 Completed [facility] 10:31:00 [facility] Kenlorelei Mejiaalog 2018-01-17 Completed [facility] - (Triamcinolone) (Triamcinolone) 11:32:00 [facility] Kenalog Kenalog 2018-01-17 Completed [facility] - (Triamcinolone) (Triamcinolone) 11:32:00 [facility] Influenza 2015-09-10 Completed [facility] Quadrivalent 3YRS+ 00:00:00 of Med donna Vital Signs Vital Name Observation Time Observation Value Comments Source Systolic blood 2022-11-25 18:22:00 170 mm[Hg] [facility] pressure Medicine Diastolic blood 2022-11-25 18:22:00 81 mm[Hg] [facility] pressure Medicine Heart rate 2022-11-25 18:22:00 64 /min [facility] Body temperature 2022-11-25 18:22:00 36.44 Latoya [facility] Respiratory rate 2022-11-25 18:22:00 18 /min [facility] Body height 2022-11-25 18:22:00 172.7 cm [facility] Body weight 2022-11-25 18:22:00 76.658 kg [facility] BMI 2022-11-25 18:22:00 25.70 kg/m2 [facility] height 2022-07-13 08:40:00 68 [in_i] [facility] weight 2022-07-13 08:40:00 166.7 [lb_av] Common [facility] temperature 2022-07-13 08:40:00 97.9 [degF] Common [facility] bmi 2022-07-13 08:40:00 25.34 kg/m2 [facility] oximetry 2022-07-13 08:40:00 97 % Common [facility] respiratory rate 2022-07-13 08:40:00 16 /min Comm on [facility] blood pressure 2022-07-13 08:40:00 127 mm[Hg] Common [facility] - systolic [facility] blood pressure 2022-07-13 08:40:00 60 mm[Hg] Common [facility] - diastolic [facility] height 2022-06-23 11:20:00 68 [in_i] Common [facility] weight 2022-06-23 11:20:00 171.1 [lb_av] [facility] temperature 2022-06-23 11:20:00 97.7 [degF] Common [facility] bmi 2022-06-23 11:20:00 26.01 kg/m2 [facility] oximetry 2022-06-23 11:20:00 97 % [facility] respiratory rate 2022-06-23 11:20:00 16 /min Comm on [facility] blood pressure 2022-06-23 11:20:00 139 mm[Hg] Common [facility] - systolic [facility] blood pressure 2022-06-23 11:20:00 69 mm[Hg] Common [facility] - diastolic [facility] height 2022-06-02 08:20:00 68 [in_i] [facility] weight 2022-06-02 08:20:00 163 [lb_av] Common [facility] bmi 2022-06-02 08:20:00 24.78 kg/m2 [facility] height 2022-04-01 14:00:00 68 [in_i] [facility] weight 2022-04-01 14:00:00 161 [lb_av] [facility] bmi 2022-04-01 14:00:00 24.48 kg/m2 [facility] blood pressure 2022-04-01 14:00:00 126 mm[Hg] [facility] - systolic [facility] blood pressure 2022-04-01 14:00:00 78 mm[Hg] [facility] - diastolic [facility] height 2022-03-24 13:30:00 68 [in_i] [facility] weight 2022-03-24 13:30:00 160 [lb_av] [facility] bmi 2022-03-24 13:30:00 24.33 kg/m2 [facility] height 2022-03-02 16:40:00 68 [in_i] [facility] weight 2022-03-02 16:40:00 170.8 [lb_av] [facility] temperature 2022-03-02 16:40:00 97.6 [degF] [facility] bmi 2022-03-02 16:40:00 25.97 kg/m2 [facility] S pirit [facility] oximetry 2022-03-02 16:40:00 96 % [facility] S pirit [facility] respiratory rate 2022-03-02 16:40:00 16 /min [facility] blood pressure 2022-03-02 16:40:00 138 mm[Hg] [facility] - systolic [facility] blood pressure 2022-03-02 16:40:00 58 mm[Hg] [facility] - diastolic [facility] height 2022-02-10 08:40:00 68 [in_i] [facility] weight 2022-02-10 08:40:00 160 [lb_av] Common [facility] bmi 2022-02-10 08:40:00 24.33 kg/m2 [facility] height 2021-10-29 08:40:00 68 [in_i] Common [facility] weight 2021-10-29 08:40:00 166 [lb_av] [facility] temperature 2021-10-29 08:40:00 97.2 [degF] [facility] bmi 2021-10-29 08:40:00 25.24 kg/m2 [facility] oximetry 2021-10-29 08:40:00 98 % [facility] blood pressure 2021-10-29 08:40:00 132 mm[Hg] [facility] - systolic [facility] blood pressure 2021-10-29 08:40:00 63 mm[Hg] Common [facility] diastolic [facility] height 2021-10-02 08:00:00 68 [in_i] [facility] weight 2021-10-02 08:00:00 156 [lb_av] [facility] 2021-10-02 08:00:00 23.72 kg/m2 [facility] height 2021-07-30 13:00:00 68 [in_i] Common [facility] weight 2021-07-30 13:00:00 175.4 [lb_av] [facility] temperature 2021-07-30 13:00:00 97.5 [degF] [facility] bmi 2021-07-30 13:00:00 26.67 kg/m2 [facility] oximetry 2021-07-30 13:00:00 96 % [facility] respiratory rate 2021-07-30 13:00:00 16 /min Comm on [facility] blood pressure 2021-07-30 13:00:00 132 mm[Hg] [facility] - systolic [facility] blood pressure 2021-07-30 13:00:00 74 mm[Hg] [facility] - diastolic [facility] Systolic blood 2019-11-21 21:50:00 136 mm[Hg] [facility] Medicine Diastolic blood 2019-11-21 21:50:00 76 mm[Hg] [facility] Medicine Heart rate 2019-11-21 21:50:00 51 /min [facility] Body height 2019-11-21 21:50:00 172.7 cm [facility] Body weight 2019-11-21 21:50:00 72.576 kg [facility] BMI 2019-11-21 21:50:00 24.33 kg/m2 [facility] Systolic blood 2019-11-21 21:50:00 136 mm[Hg] [facility] Medicine Diastolic blood 2019-11-21 21:50:00 76 mm[Hg] [facility] Medicine Heart rate 2019-11-21 21:50:00 51 /min [facility] Body height 2019-11-21 21:50:00 172.7 cm [facility] Body weight 2019-11-21 21:50:00 72.576 kg [facility] BMI 2019-11-21 21:50:00 24.33 [facility] Procedures Procedure Date / Time Performed Performing Clinician Sourc e CBC W/AUTO DIFF WITH 2022-11-25 19:17:00 Nba Engle [facility] PLATELETS Medicine CYSTOSCOPY 2022-07-28 10:00:00 [facility] Medicine BLADDER WASHINGS 2022-07-28 09:40:10 [facility] ege of CYTOLOGY X2 Medicine POCT URINALYSIS 2022-07-28 00:00:00 [facility] of DIPSTICK Medicine CULTURE, 2019-11-22 14:56:00 Leah Le [facility] ege of URINE/SENSITIVITY ON Medicine ALL Plan of Care Planned Activity Planned Date Details Comments Source Future Scheduled 2022-11-25 COVID-19 Vaccine (#1) [facility] of Test 15:21:04 [code = COVID-19 Medicine Vaccine (#1)] Future Scheduled 2022-11-25 Pneumococcal 65+ (1 - [facility] of Test 15:21:04 PCV) [code = Medicine Pneumococcal 65+ (1 - PCV)] Future Scheduled 2022-11-25 TETANUS SHOT (ADULT) [facility] of Test 15:21:04 [code = TETANUS SHOT Medicin e (ADULT)] Future Scheduled 2022-11-25 Diabetic foot [facility] of Test 15:21:04 examination Medicine (regime/therapy) [code = 006228385] Future Scheduled 2022-11-25 Annual Diabetic [facility] C [facility] of Test 15:21:04 Retinopathy Screening Medici ne [code = Annual Diabetic Retinopathy Screening] Future Scheduled 2022-11-25 BMI Follow Up Plan [facility] of Test 15:21:04 [code = BMI Follow Up Medici ne Plan] Future Scheduled 2022-11-25 Medicare Awv (Initial) [facility] of Test 15:21:04 [code = Medicare Awv Medicin e (Initial)] Future Scheduled 2022-11-25 FLU VACCINE > 6 MONTHS [facility] of Test 15:21:04 [code = FLU VACCINE > Medici ne 6 MONTHS] Future Scheduled 2022-11-25 Fall Screen [code = [facility] of Test 15:21:04 Fall Screen] Medicine Future Scheduled 2022-11-25 FOLATE [code = 2284-8] [facility] of Test 12:59:08 Medicine Future Scheduled 2022-11-25 VITAMIN B12 [code = [facility] of Test 12:59:07 2132-9] Medicine Future Scheduled 2022-11-25 IRON+TIBC+%SAT [code = [facility] of Test 12:59:07 NOCPT] Medicine Future Scheduled 2022-11-25 FERRITIN [code = [facility] of Test 12:59:07 63261-2] Medicine Future Scheduled 2022-11-[address] [facility] Test 00:00:00 (12+) [code = Medical Center DEPRESSION SCREENING (12+)] Future Scheduled 2022-11-14 FALLS RISK SCREENING [facility] Test 00:00:00 [code = FALLS RISK Medical C enter SCREENING] Future Scheduled 2022-07-15 INFLUENZA VACCINE (#1) [facility] Test 00:00:00 [code = INFLUENZA Medical Ce nter VACCINE (#1)] Future Scheduled 2022-07-15 INFLUENZA VACCINE (#1) C [...] Cessation Counseling and Screening (12+)] Future Scheduled 2020-10-[address] [facility] Test 00:00:00 Counseling and Medical Cente r Screening (12+) [code = Tobacco Cessation Counseling and Screening (12+)] Future Scheduled 2019-11-[address] [facility] [facility] Test 00:00:00 WELLNESS (YEAR 2 or Medical Center FIRST YEAR if no IPPE) [code = MEDICARE ANNUAL WELLNESS (YEAR 2 or FIRST YEAR if no IPPE)] Future Scheduled 2019-11-[address] [facility] Test 00:00:00 WELLNESS (YEAR 2 or Medical Center FIRST YEAR if no IPPE) [code = MEDICARE ANNUAL WELLNESS (YEAR 2 or FIRST YEAR if no IPPE)] Future Scheduled 2005 PNEUMOCOCCAL 65+ YRS [facility] Test 00:00:00 (1 - PCV) [code = Medical Ce nter PNEUMOCOCCAL 65+ YRS (1 - PCV)] Future Scheduled 2005 PNEUMOCOCCAL 65+ YRS [facility] Test 00:00:00 (1 - PCV) [code = Medical Ce nter PNEUMOCOCCAL 65+ YRS (1 - PCV)] Future Scheduled 1990 SHINGLES VACCINES ([address] [facility] Test 00:00:00 of 2) [code = SHINGLES Medic al Center VACCINES (1 of 2)] Future Scheduled 1990 SHINGLES VACCINES ([address] [facility] Test 00:00:00 of 2) [code = SHINGLES Medic al Center VACCINES (1 of 2)] Future Scheduled 1959 DTAP/TDAP/TD VACCINES [facility] Test 00:00:00 (1 - Tdap) [code = Medical C enter DTAP/TDAP/TD VACCINES (1 - Tdap)] Future Scheduled 1959 DTAP/TDAP/TD VACCINES [facility] Test 00:00:00 (1 - Tdap) [code = Medical C enter DTAP/TDAP/TD VACCINES (1 - Tdap)] Future Scheduled 1941-04-07 COVID-19 VACCINE (#1) [facility] Test 00:00:00 [code = COVID-[address] VACCINE (#1)] Future Scheduled 1941-04-07 COVID-19 VACCINE (#1) [facility] Test 00:00:00 [code = COVID-[address] VACCINE (#1)] Future Scheduled TETANUS SHOT (ADULT) [facility] Test [code = TETANUS SHOT Medicin e (ADULT)] Future Scheduled FALL SCREEN [code = [facility] Test FALL SCREEN] Medicine Future Scheduled PNEUMOVAX >=65 [facility] llege of Test (PPSV23) [code = Medicine PNEUMOVAX >=65 (PPSV23)] Future Scheduled PREVNAR >= 65 (PCV13) [facility] Test [code = PREVNAR >= 65 Medici ne (PCV13)] Future Scheduled MEDICARE AWV (Initial) [facility] of Test [code = MEDICARE AWV Medicin e (Initial)] Future Scheduled FLU VACCINE > 6 MONTHS B [facility] Test [code = FLU VACCINE > Medici ne 6 MONTHS] Encounters Start End Encounter Admission Attending Care Care Encounter Source Date/Time Date/Time Type Type Clinicians Facility Department ID 2022-06-23 Outpatient Kori Mccoy [facility] [id number] 2 Common 10:50:01 [facility] 2022-05-31 Outpatient Kori Mccoy [facility] [id number] 2 Common 08:13:01 [facility] 2022-04-01 Outpatient Kori Mccoy [facility] [id number] 2 Common 13:48:05 [facility] 2022-03-02 Outpatient Mccoy, Na STLMLC STLMLC [id number] 2 Common 16:19:00 [facility] 2022-02-08 Outpatient Mccoy, Na STLMLC STLMLC [id number] 2 Common 08:34:01 [facility] 2021-12-10 Outpatient Mccoy, Na STLMLC STLMLC [id number] 2 Common 15:36:00 [facility] 2021-12-09 Outpatient Mccoy, Na STLMLC STLMLC [id number] 2 Common 14:24:20 [id number] [facility] 2021-12-09 Outpatient Mccoy, Na STLMLC STLMLC [id number] 2 Common 14:15:28 [facility] 2021-12-09 Outpatient Mccoy, Na STLMLC STLMLC [id number] 2 Common 13:14:42 [id number] [facility] 2021-12-09 Outpatient Mccoy, Na STLMLC STLMLC [id number] 2 Common 13:05:10 [id number] [facility] 2021-12-09 Outpatient Mccoy, Na STLMLC STLMLC [id number] 2 Common 12:49:56 [id number] [facility] 2021-12-09 Outpatient Mccoy, Na STLMLC STLMLC [id number] 2 Common 12:36:00 [id number] [facility] 2021-12-09 Outpatient Mccoy, Na STLMLC STLMLC [id number] 2 Common 12:33:13 [id number] [facility] 2021-12-09 Outpatient Mccoy, Na STLMLC STLMLC [id number] 2 Common 12:32:16 [id number] [facility] 2021-12-09 Outpatient Mccoy, Na STLMLC STLMLC [id number] 2 Common 12:11:40 [id number] [facility] 2021-12-09 Outpatient Mccoy, Na STLMLC STLMLC [id number] 2 Common 12:07:56 [id number] [facility] 2021-12-09 Outpatient Nadine, Na STLMLC STLMLC [id number] 2 Common 11:43:48 [id number] [facility] 2021-12-09 Outpatient Nadine, Na STLMLC STLMLC [id number] 2 Common 11:39:42 [id number] [facility] 2023-11-24 2023-11-24 Outpatient [facility]I [facility] [id number] [facility] 00:00:00 00:00:00 [facility] frag[facility] of Medicin e 2022-11-25 2022-11-25 [facility] [id number] [facility] 13:00:00 14:58:48 Visit Nba Jackson [id number] Co llege [id number] [facility] christopher 506 e 2022-10-29 2022-10-29 (TEL) STLMLC STLMLC [id number] Co mmon 00:00:00 00:00:00 [facility] 2022-10-22 2022-10-22 (TEL) STLMLC STLMLC [id number] Co mmon 00:00:00 00:00:00 [facility] 2022 2022 (TEL) STLMLC STLMLC [id number] Co mmon 00:00:00 00:00:00 [facility] 2022-10-06 2022-10-06 (TEL) STLMLC STLMLC [id number] Co mmon 00:00:00 00:00:00 [facility] 2022-10-06 2022-10-06 OFFICE STLMLC STLMLC [id number] Co mmon 00:00:00 00:00:00 VISIT [facility] 4 [facility] 2022-10-05 2022-10-05 (TEL) STLMLC STLMLC [id number] Co mmon 00:00:00 00:00:00 [facility] 2022-09-14 2022-09-14 (TEL) STLMLC STLMLC [id number] Co mmon 00:00:00 00:00:00 [facility] 2022-07-29 2022-07-29 (TEL) STLMLC STLMLC [id number] Co mmon 00:00:00 00:00:00 [facility] 2022-07-28 2022-07-28 Outpatient [facility]I [facility] [id number] [address] [place] [address] 09:05:37 16:32:46 LEAH Nikita ege of Medicin e 2022-07-16 2022-07-16 (TEL) STLMLC STLMLC [id number] Co mmon 00:00:00 00:00:00 [facility] 2022-07-14 2022-07-14 (TEL) STLMLC STLMLC [id number] Co mmon 00:00:00 00:00:00 [facility] 2022-07-13 2022-07-13 OFFICE STLMLC STLMLC [id number] Co mmon 00:00:00 00:00:00 VISIT [facility] PT - CHI LEVEL 4 [facility] 2022-06-29 2022-06-29 (TEL) STLMLC STLMLC [id number] Co mmon 00:00:00 00:00:00 [facility] 2022-06-23 2022-06-23 OFFICE STLMLC STLMLC [id number] Co mmon 00:00:00 00:00:00 VISIT [facility] PT LEVEL 3 [facility] 2022-06-22 2022-06-22 (TEL) STLMLC STLMLC [id number] Co mmon 00:00:00 00:00:00 [facility] 2022-06-02 2022-06-02 (TEL) STLMLC STLMLC [id number] Co mmon 00:00:00 00:00:00 [facility] 2022-06-02 2022-06-02 OFFICE STLMLC STLMLC [id number] Co mmon 00:00:00 00:00:00 VISIT [facility] PT - CHI LEVEL 4 [facility] 2022-04-02 2022-04-02 (TEL) STLMLC STLMLC [id number] Co mmon 00:00:00 00:00:00 [facility] 2022-04-01 2022-04-01 OFFICE STLMLC STLMLC [id number] Co mmon 00:00:00 00:00:00 VISIT [facility] PT LEVEL 4 - [facility] 2022-03-24 2022-03-24 OFFICE STLMLC STLMLC [id number] Co mmon 00:00:00 00:00:00 VISIT [facility] PT LEVEL 3 - [facility] 2022-03-19 2022-03-19 (TEL) STLMLC STLMLC [id number] Co mmon 00:00:00 00:00:00 [facility] 2022-03-12 2022-03-12 (TEL) STLMLC STLMLC [id number] Co mmon 00:00:00 00:00:00 [facility] 2022-03-08 2022-03-08 (TEL) STLMLC STLMLC [id number] Co mmon 00:00:00 00:00:00 [facility] 2022-03-04 2022-03-04 (TEL) STLMLC STLMLC [id number] Co mmon 00:00:00 00:00:00 [facility] 2022-03-02 2022-03-02 OFFICE STLMLC STLMLC [id number] Co mmon 00:00:00 00:00:00 VISIT [facility] PT - CHI LEVEL 2 [facility] 2022-02-10 2022-02-10 (TEL) STLMLC STLMLC [id number] Co mmon 00:00:00 00:00:00 [facility] 2022-02-10 2022-02-10 OFFICE STLMLC STLMLC [id number] Co mmon 00:00:00 00:00:00 VISIT [facility] PT - CHI LEVEL 4 [facility] 2022-01-27 2022-01-27 Outpatient [facility] [id number] [address] [place] [address] 08:30:50 11:41:46 Colleg e of Medicin e 2022-01-27 2022-01-27 Outpatient DONI LE [id number] [facility] 08:31:18 10:42:49 LEAH Nikita ege of Medicin e 2022-01-14 2022-01-14 (TEL) STLMLC STLMLC [id number] Co mmon 00:00:00 00:00:00 [facility] 2021-10-29 2021-10-29 OFFICE STLMLC STLMLC [id number] Co mmon 00:00:00 00:00:00 VISIT [facility] PT - CHI LEVEL 4 [facility] 2021-10-21 2021-10-21 Outpatient [facility] [id number] [facility] 09:21:49 10:40:52 LEAH Nikita ege of Medicin e 2021-10-21 2021-10-21 (TEL) STLMLC STLMLC [id number] Co mmon 00:00:00 00:00:00 [facility] 2021-10-02 2021-10-02 OFFICE STLMLC STLMLC [id number] Co mmon 00:00:00 00:00:00 VISIT [facility] PT LEVEL 3 [facility] 2021-10-01 2021-10-01 (TEL) STLMLC STLMLC [id number] Co mmon 00:00:00 00:00:00 [facility] 2021-08-19 2021-08-19 (TEL) STLMLC STLMLC [id number] Co mmon 00:00:00 00:00:00 [facility] 2021-07-30 2021-07-30 OFFICE STLMLC STLMLC [id number] Co mmon 00:00:00 00:00:00 VISIT [facility] PT - CHI LEVEL 4 [facility] 2021-07-13 2021-07-13 Outpatient STLMLC STLMLC [id number] Common 00:00:00 00:00:00 [facility] 2021-07-08 2021-07-08 Outpatient [facility] [id number] 10:18:53 11:40:29 [facility] 2021-07-06 2021-07-06 Outpatient STLMLC STLMLC [id number] Common 00:00:00 00:00:00 [facility] 2021-07-01 2021-07-01 Outpatient STLMLC STLMLC [id number] Common 00:00:00 00:00:00 [facility] 2021-06-01 2021-06-01 Outpatient STLMLC STLMLC [id number] Common 00:00:00 00:00:00 [facility] 2021-04-29 2021-04-29 Outpatient [facility]LMLC STLMLC [id number] Common 00:00:00 00:00:00 [facility] 2021-03-10 2021-03-10 Outpatient [facility]LMLC STLMLC [id number] Common 00:00:00 00:00:00 [facility] 2021-03-05 2021-03-05 Outpatient [facility]LMLC STLMLC [id number] Common 00:00:00 00:00:00 [facility] 2021-02-17 2021-02-17 Outpatient STLMLC STLMLC [id number] Common 00:00:00 00:00:00 [facility] 2021-02-16 2021-02-16 Outpatient STLMLC STLMLC [id number] Common 00:00:00 00:00:00 [facility] 2021-02-12 2021-02-12 Outpatient STLMLC STLMLC [id number] Common 00:00:00 00:00:00 [facility] 2021-02-11 2021-02-11 Outpatient STLMLC STLMLC [id number] Common 00:00:00 00:00:00 [facility] 2021-01-21 2021-01-21 Outpatient STLMLC STLMLC [id number] Common 00:00:00 00:00:00 [facility] 2021-01-02 2021-01-02 Outpatient STLMLC STLMLC [id number] Common 00:00:00 00:00:00 [facility] 2020-10-24 2020-10-24 Outpatient STLMLC STLMLC [id number] Common 00:00:00 00:00:00 [facility] 2020-10-07 2020-10-07 Outpatient STLMLC STLMLC [id number] Common 00:00:00 00:00:00 [facility] 2020-10-07 2020-10-07 Outpatient STLMLC STLMLC [id number] Common 00:00:00 00:00:00 [facility] 2020-10-07 2020-10-07 Outpatient STLMLC STLMLC [id number] Common 00:00:00 00:00:00 [facility] 2020-08-27 2020-08-27 Outpatient STLMLC STLMLC [id number] Common 00:00:00 00:00:00 [facility] 2020-07-23 2020-07-23 [facility] [id number] Common 08:40:00 08:40:00 [place] [address] [facility] 2020-07-22 2020-07-22 [facility] [id number] Common 17:01:00 17:01:00 [place] [address] [facility] 2020-07-07 2020-07-07 [facility] [id number] Common 16:22:00 16:22:00 [place] [address] [facility] 2020-07-04 2020-07-04 [facility] [id number] Common 11:20:00 11:20:00 [place] [address] [facility] 2020-07-04 2020-07-04 [facility] [id number] Common 08:10:00 08:10:00 [place] [address] [facility] 2020-04-22 2020-04-22 [facility] [id number] Common 13:20:00 13:20:00 [place] [address] [facility] 2019-11-21 2019-11-21 Office DONI Le [id number] 14:51:13 16:43:49 Visit Leah AMBULATOR [id number] Y [id number] 2019-11-21 2019-11-21 Office DONI Le [id number] [place] [address] 14:51:13 16:43:49 Visit Leah AMBULATOR [id number] College Y [id number] of [id number] [facility] 300 e 2019-10-23 2019-10-23 [facility] [id number] Common 13:20:00 13:20:00 [place] [address] [facility] 2019-08-02 2019-08-02 [facility] [id number] Common 10:02:00 10:02:00 [place] [address] [facility] 2019-07-25 2019-07-25 [facility] [id number] Common 09:40:00 09:40:00 [place] [address] [facility] 2019-05-22 2019-05-22 [facility] [id number] Common 09:20:00 09:20:00 [place] [address] [facility] 2019-04-24 2019-04-24 [facility] [id number] Common 09:40:00 09:40:00 [place] [address] [facility] 2019-02-01 2019-02-01 [facility] [id number] Common 09:30:00 09:30:00 [place] [address] [facility] 2019-01-16 2019-01-16 [facility] [id number] Common 09:25:00 09:25:00 [place] [address] [facility] 2018-12-18 2018-12-18 [facility] [id number] Common 13:34:00 13:34:00 [place] [address] [facility] 2018-12-18 2018-12-18 Outpatient Raul Cartert [id number] Common 09:00:00 09:00:00 [place] [address] [facility] 2018-12-15 2018-12-15 Outpatient Raul Cartert [id number] Common 10:47:00 10:47:00 [place] [address] [facility] 2018-10-24 2018-10-24 Outpatient Raul Cartert [id number] Common 08:30:00 08:30:00 [place] [address] [facility] Results Test Description Test Time Test Comments Results Result Comments Source CBC W/AUTO DIFF WITH PLATELETS 2022-11-25 19:52:16 Test Item Value Reference Range Interpretation Comme nts WHITE BLOOD CELL COUNT (test See_Comment [Automated message] The system code = 25167-9) which genera howard this result transmitted ref erence range: 3.5 - 11.0 K/UL . The reference range was not u sed to interpret this result as normal/abnormal. RED BLOOD CELL COUNT (test See_Comment L [Automated message] The system code = 24061-9) which genera howard this result transmitted ref erence range: 4.50 - 6.10 M/U L. The reference range was not u sed to interpret this result as normal/abnormal. HEMOGLOBIN (test code = See_Comment L [Au tomated message] The system 718-7) which generated this result transmitted ref erence range: 13.5 - 17.0 G/D L. The reference range was not u sed to interpret this result as normal/abnormal. HEMATOCRIT (test code = 35.3 % 40.0-51.0 L 40521-9) MEAN CORPUSCULAR VOLUME (test 92.2 fL 80.0-99.0 code = 78442-5) MEAN CORPUSCULAR HEMOGLOBIN 31.1 PG 25.0-33.0 (test code = 02532-6) MEAN CORPUSCULAR HEMOGLOBIN See_Comment [Automated message] The system CONC (test code = 59531-8) [facility] generated this result transmitted ref erence range: 31.0 - 36.0 G/D L. The reference range was not u sed to interpret this result as normal/abnormal. RED CELL DISTRIBUTION WIDTH 12.9 % 11.5-15.0 (test code = 16981-3) NEUTROPHILS % (test code = 64 % 14581-8) LYMPHOCYTES % (test code = 23 % 18601-7) MONOCYTES % (test code = 11 % 66458-5) EOSINOPHILS % (test code = 1 % 52730-2) BASOPHILS % (test code = 0 % 44325-9) PLATELET COUNT (test code = See_Comment TESTING PERFORMED AT CLINICAL 60828-8) [facility] [address], [address] [place], [place] [address] CLIA NO. [id number] [Aut omated message] The system [employer] generated this result transmit howard reference range: 130 - 40 0 K/UL. The reference range was not used to interpret this result as normal/abnormal . NEUTROPHILS ABSOLUTE COUNT See_Comment [Automated message] The system (test code = 63096-4) which generated this result transmitted ref erence range: 1.50 - 7.50 K/U L. The reference range was not u sed to interpret this result as normal/abnormal. LYMPHOCYTES ABSOLUTE COUNT See_Comment L [Automated message] The system (test code = 55316-6) which generated this result transmitted ref erence range: 1.00 - 4.00 K/U L. The reference range was not u sed to interpret this result as normal/abnormal. MONOCYTES ABSOLUTE COUNT See_Comment [A utomated message] The system (test code = 11521-8) which generated this result transmitted ref erence range: 0.20 - 1.00 K/U L. The reference range was not u sed to interpret this result as normal/abnormal. BASOPHILS ABSOLUTE COUNT See_Comment Un less Otherwise Indicated, (test code = 01266-8) All Te sting Performed At: [facility], [address] [place] [address] 7842 4 Body Liner: Elliott Singh [id number] [place] o. [id number] [Automated mess age] The system which generated this result transmitted ref erence range: 0.00 - 0.20 K/U L. The reference range was not u sed to interpret this result as normal/abnormal. CORA (test code = CORA) PT FASTING Lab Interpretation (test code Abnormal = 06627-3) [facility]ENSITIVITY ON [id number] 12:08:02 Test Item Value Reference Range Interpretation Comments CULTURE, SPECIMEN NUMBER: CULTURE, URINE/SENSITIV [id number] URINE/SENSITI VITY ON ITY ON ALL ALL SPECIMEN NU MBER: (test code = 724690093 SPECI MEN 2236) COMMENT: URINE SOURCE: URINE REPORT ST ATUS: FINAL FINAL REP ORT: 11/24/2019 NO G ROWTH AFTER 36 HOURS INCUBATION Unle ss Otherwise Indic ated, All Testing Per formed At: [facility], [address] [place] [address] Laborator y Director: Wang Lacy M.D. CLIA Number [id number] [place] o. [id number] [facility] Center[facility] [id number] 17:32:00Surgical Pathology Report Case: [id number] Authorizing Provider: Leah Le MD Collected: 10/30/2019 1037 Ordering Location: [facility] PER[facility] Received: 10/31/2019 0846 [...] BY TUMOR Signing Pathologist Direct Phone Line: [phone] signed by Yan Hays MD on 11/02/2019 at 5:32 PMThe invasive component represents no more than 5% of the total tumor mass. [address] X 2Preoperative and postoperative diagnoses: bladder tumorA. [...] entirely submitted in cassettes B1-AB. JG/ewPerformed. POCT-GLUCOSE [id number] 06:24:00 Test Item Value Reference Range Interpretation Comments POC-GLUCOSE METER 76 mg/dL 70-110 : TESTED A T [facility] 6720 (CHANDLER) (test code = [place], 1538) [address]: Aws Consultant/Techni jordana ID = [id number] for [facility]
--- NOTE | 2022-11-30 21:24 | RAD REPORT ---
EXAM DESCRIPTION: US - Extremity Venous Uni Ltd - 11/30/2022 9:17 pm CLINICAL HISTORY: Pain COMPARISON: 10/20/2026 TECHNIQUE: Real-time sonographic evaluation of the left lower extremity deep venous system was perfo rmed. FINDINGS: Normal compressibility, flow augmentation, phasic flow and spontaneous flow is identified in the left lower extremity deep venous system. No intraluminal filling defects seen. IMPRESSION: No DVT in the left lower extremity.
--- NOTE | 2022-11-30 21:27 | RAD REPORT ---
EXAM DESCRIPTION: US - Lower Extremity Artery Uni Ltd - 11/30/2022 9:17 pm CLINICAL HISTORY: Leg pain COMPARISON: None FINDINGS: Color Doppler, grayscale, and spectral analysis was performed. The common femoral, superficial femoral demonstrate triphasic waveforms. Biphasic waveform in the pop liteal artery. The posterior tibial and dorsalis pedis arteries demonstrate biphasic waveforms. IMPRESSION: Mild distal lower extremity arterial disease. No hemodynamically significant stenosis id entified.
--- NOTE | 2022-11-30 21:58 | EDPHYS ---
Physician Documentation [facility] Name: Noah Whyte Age: 82 yrs Sex: Male : 1940 Arrival Date: 11/30/2022 Time: 20:03 Bed 20 Private MD: ED Physician Zaire Alvarez HPI: 11/30 21:52 This 82 yrs old Male presents to ER via Ambulatory with complaints of Leg Pain. rn 21:52 The patient presents with pain, that is acute. The complaints affect the left mccullough. rn 21:52 Onset: The symptoms/episode began/occurred 1 week(s) ago. Modifying factors: The rn symptoms are alleviated by nothing. the symptoms are aggravated by nothing. Associated signs and symptoms: Pertinent negatives fever, swelling, warmth, weakness. Severity of symptoms: At their worst the symptoms were mild, in the emergency department the symptoms are unchanged. The patient has not experienced similar symptoms in the past. The patient has not recently seen a physician. Pt reports left mccullough pain, no trauma or injury, no calf pain, no skin changes, no fever. NO hx of dvt/PE. . Historical: - Allergies: 20:30 Clarithromycin; ll3 20:30 Levofloxacin; ll3 - PMHx: 20:30 Anemia; Bladder Tumor - Cancer; GERD; High Cholesterol; Hypertension; Hypothyroidism; ll3 - PSHx: 20:30 cataract repair; TURP; ll3 - Immunization history:: Client reports receiving the 2nd dose of the Covid vaccine. - Social history:: Smoking status: Patient denies any tobacco usage or history of. - Family history:: not pertinent. - Hospitalizations: : No recent hospitalization is reported. ROS: 21:52 Constitutional: Negative for fever, chills, and weight loss, Eyes: Negative for injury, rn pain, redness, and discharge, Neck: Negative for injury, pain, and swelling, Cardiovascular: Negative for chest pain, palpitations, and edema, Respiratory: Negative for shortness of breath, cough, wheezing, and pleuritic chest pain, Abdomen/GI: Negative for abdominal pain, nausea, vomiting, diarrhea, and constipation, Back: Negative for injury and pain, MS/Extremity: + left pre-tibial pain Skin: Negative for injury, rash, and discoloration, Neuro: Negative for headache, weakness, numbness, tingling, and seizure. Exam: 21:52 Constitutional: This is a well developed, well nourished patient who is awake, alert, rn and in no acute distress. Head/Face: Normocephalic, atraumatic. Cardiovascular: Regular rate and rhythm. No pulse deficits. Respiratory: No increased work of breathing, no retractions or nasal flaring. Skin: Warm, dry with normal turgor. Normal color with no rashes, no lesions, and no evidence of cellulitis. MS/ Extremity: Pulses equal, no cyanosis. Neurovascular intact. Full, normal range of motion. Equal circumference. No swelling or focal tenderness of LLE. Neuro: Awake and alert, GCS 15, oriented to person, place, time, and situation. Cranial nerves II-XII grossly intact. Motor strength 5/5 in all extremities. Sensory grossly intact. Cerebellar exam normal. Normal gait. Vital Signs: 20:26 BP 172 / 74; Pulse 62; Resp 16; Temp 97.8(TE); Pulse Ox 98% on R/A; Weight 73.94 kg ll3 (R); Height 5 ft. 8 in. (172.72 cm) (R); Pain 2/10; 21:45 BP 167 / 89; Pulse 60; Resp 19; Pulse Ox 97% ; Pain 0/10; jj7 22:28 BP 150 / 97; Pulse 67; Resp 18; Pulse Ox 98% ; Pain 0/10; jj7 20:26 Body Mass Index 24.78 (73.94 kg, 172.72 cm) ll3 MDM: 20:13 Patient medically screened. rn 21:55 Differential diagnosis: closed fracture, contusion, tendonitis, DVT, arterial rn insufficiency, muscular pain. Data reviewed: vital signs, nurses notes, lab test result(s), radiologic studies, doppler, plain films, and as a result, I will discharge patient. Independent interpretation of the following test(s) in the Emergency Department X-Ray: My interpretation is Xray left tib/fib neg for acute fracture or bony abnormality.. Counseling: I had a detailed discussion with the patient and/or guardian regarding: the historical points, exam findings, and any diagnostic results supporting the discharge/admit diagnosis, radiology results, the need for outpatient follow up, to return to the emergency department if symptoms worsen or persist or if there are any questions or concerns that arise at home. Special discussion: I discussed with the patient/guardian in detail that at this point there is no indication for admission to the hospital. It is understood, however, that if the symptoms persist or worsen the patient needs to return immediately for re-evaluation. Based on the history and exam findings, there is no indication for further emergent testing or inpatient evaluation. I discussed with the patient/guardian the need to see the primary care provider for further evaluation of the symptoms. ED course: U/s of LLE neg for DVT or arterial occlusion, shows mild arterial disease. Could explain patient's pain but also could be muscular. No sign of infection/cellulitis. xray neg for bony abnormality. Will dc home with pcp f/u and return precautions. . 11/30 20:50 Order name: Extremity Venous Uni Ltd US; Complete Time: 22:09 rn 11/30 20:50 Order name: Lower Extremity Artery Uni Ltd US; Complete Time: 22:09 rn 11/30 20:50 Order name: XRAY Tib Fib LEFT; Complete Time: 22:09 rn Administered Medications: No medications were administered Disposition Summary: 11/30/22 21:57 Discharge Ordered Location: Home rn Problem: new rn Symptoms: are unchanged rn Condition: Stable rn Diagnosis - Pain in left lower leg rn - Peripheral vascular disease, unspecified rn Followup: rn - With: Private Physician - When: As needed - Reason: Recheck today's complaints, Re-evaluation by your physician Discharge Instructions: - Discharge Summary Sheet rn - Musculoskeletal Pain rn - Pain Without a Known Cause rn - Peripheral Vascular Disease rn Forms: - Medication Reconciliation Form rn - Thank You Letter rn - Antibiotic extern - Prescription Opioid Use rn Signatures: Dispatcher [employer] EDZaire Matt MD MD rn Loubet, Lynsea, RN RN ll3 Corrections: (The following items were deleted from the chart) 20:32 20:30 PMHx: Vertigo; ll3 ll3
--- NOTE | 2022-11-30 21:58 | ER ---
Nurse's Notes [facility] Name: Noah Whyte Age: 82 yrs Sex: Male : 1940 Arrival Date: 11/30/2022 Time: 20:03 Bed 20 Private MD: Diagnosis: Pain in left lower leg;Peripheral vascular disease, unspecified Presentation: 11/30 20:26 Chief complaint: Patient states: C/o left mccullough pain. Coronavirus screen: Vaccine ll3 status: Patient reports receiving the 2nd dose of the covid vaccine. Ebola Screen: No symptoms or risks identified at this time. Initial Sepsis Screen: Does the patient meet any 2 criteria? No. Patient's initial sepsis screen is negative. Does the patient have a suspected source of infection? No. Patient's initial sepsis screen is negative. Risk Assessment: Do you want to hurt yourself or someone else? Patient reports no desire to harm self or others. Onset of symptoms was November 23, 2021. 20:26 Method Of Arrival: Ambulatory ll3 20:26 Acuity: JAIMIE 3 ll3 Historical: - Allergies: 20:30 Clarithromycin; ll3 20:30 Levofloxacin; ll3 - PMHx: 20:30 Anemia; Bladder Tumor - Cancer; GERD; High Cholesterol; Hypertension; Hypothyroidism; ll3 - PSHx: 20:30 cataract repair; TURP; ll3 - Immunization history:: Client reports receiving the 2nd dose of the Covid vaccine. - Social history:: Smoking status: Patient denies any tobacco usage or history of. - Family history:: not pertinent. - Hospitalizations: : No recent hospitalization is reported. Screenin:42 [facility] ED Fall Risk Assessment (Adult) History of falling in the last 3 months, jj7 including since admission No falls in past 3 months (0 pts) Confusion or Disorientation No (0 pts) Intoxicated or Sedated No (0 pts) Impaired Gait No (0 pts) Mobility Assist Device Used No (0 pt) Altered Elimination No (0 pt) Score/Fall Risk Level 0 - 2 = Low Risk Oriented to surroundings, Maintained a safe environment. Abuse screen: Denies threats or abuse. Nutritional screening: No deficits noted. Tuberculosis screening: No symptoms or risk factors identified. Assessment: 20:42 General: Appears in no apparent distress. comfortable, Behavior is calm, cooperative, jj7 appropriate for age. Pain: Complains of pain in left mccullough Pain currently is 3 out of 10 on a pain scale. Vital Signs: 20:26 BP 172 / 74; Pulse 62; Resp 16; Temp 97.8(TE); Pulse Ox 98% on R/A; Weight 73.94 kg ll3 (R); Height 5 ft. 8 in. (172.72 cm) (R); Pain 2/10; 21:45 BP 167 / 89; Pulse 60; Resp 19; Pulse Ox 97% ; Pain 0/10; jj7 22:28 BP 150 / 97; Pulse 67; Resp 18; Pulse Ox 98% ; Pain 0/10; jj7 20:26 Body Mass Index 24.78 (73.94 kg, 172.72 cm) ll3 ED Course: 20:03 Patient arrived in ED. ja2 20:13 Zaire Alvarez MD is Attending Physician. rn 20:30 Triage completed. ll3 20:30 Arm band placed on. ll3 20:39 Guy Gallardo RN is Primary Nurse. jj7 20:42 Patient has correct armband on for positive identification. Placed in gown. Bed in low jj7 position. Call light in reach. Side rails up X 1. Adult w/ patient. Warm blanket given. 20:42 No provider procedures requiring assistance completed. jj7 21:19 Extremity Venous Uni Ltd US In Process Unspecified. EDMS 21:19 Lower Extremity Artery Uni Ltd US In Process Unspecified. EDMS 21:59 XRAY Tib Fib LEFT In Process Unspecified. EDMS 22:28 Patient did not have IV access during this emergency room visit. jj7 Administered Medications: No medications were administered Medication: 20:42 VIS not applicable for this client. jj7 Outcome: 21:57 Discharge ordered by . rn 22:28 Discharged to home ambulatory, with significant other. jj7 22:28 Condition: good 22:28 Discharge instructions given to patient, significant other, Instructed on discharge instructions, follow up and referral plans. Demonstrated understanding of instructions, follow-up care. 22:29 Patient left the ED. jj7 Signatures: Dispatcher [employer] EDMS Zaire Alvarez MD MD rn Alexander, Jessica [facility] Brittany Mendez RN RN ll3 Guy Gallardo RN RN jj7 Corrections: (The following items were deleted from the chart) 20:32 20:30 PMHx: Vertigo; ll3 3
--- NOTE | 2022-11-30 22:06 | RAD REPORT ---
EXAM DESCRIPTION: RAD - Tib Fib Left - 11/30/2022 9:57 pm CLINICAL HISTORY: PAIN COMPARISON: No comparisons FINDINGS/IMPRESSION: No acute fracture. No malalignment. No significant focal degenerative changes.
[2022-11-30 22:48] VITALS: TEMP 97.8
[2022-11-30 22:50] VITALS: BP 150/97; O2SAT 98
== END 2022-11-30 22:29 | disposition home or self-care (01) ==
LOC: ER 19:54
DX: I73.9 Peripheral vascular disease, unspecified (principal); Z88.3 Allergy status to other anti-infective agents
CPT/HCPCS: 93926; 93971

== ENCOUNTER 2022-12-13 05:40 | Day surgery (SDC) | payer OTHER ==
[2022-12-10 11:48] LABS: Lymphocytes % 22.9 % (15.3-44.8); MPV 7.9 fL (7.6-11.3); RBC Red Blood Cell Count 3.95 M/uL (4.33-5.43)
[2022-12-10 11:57] LABS: Potassium 4.7 mmol/L (3.5-5.1)
[2022-12-13] MEDS ORDERED: Ringers Lactate 1,000 ML IV ONE ×2 (06:17→08:17)
[2022-12-13] MEDS ORDERED: CEFAZOLIN SODIUM 2 GM/VIAL ONE (06:17)
[2022-12-13] MEDS ORDERED: DEPO-MEDROL 40 MG/ML IM ONE (06:19)
[2022-12-13] MEDS ORDERED: THROMBIN 5000 UNITS/VIAL TOP ONE (06:20)
[2022-12-13] MEDS ORDERED: MIDAZOLAM HCL 2 MG/2 ML INJ ONE (06:30)
[2022-12-13] MEDS ORDERED: propofoL 200 MG/20 ML VIAL IV ONE (06:30)
[2022-12-13] MEDS ORDERED: ROCURONIUM 50 MG/5 ML VIAL IV ONE (06:30)
[2022-12-13] MEDS ORDERED: FENTANYL CITR 250 MCG/5 ML ONE (06:30)
[2022-12-13] MEDS ORDERED: SUCCINYLCHOLINE 20 MG/ML (10 ML) IV ONE (06:46)
[2022-12-13] MEDS ORDERED: Phenylephrine HCl 10 MG/ML 1 ML VIAL ONE (07:18)
[2022-12-13] MEDS ORDERED: KETOROLAC 30 MG/ML INJ ONE (07:56)
[2022-12-13] MEDS ORDERED: VANCOMYCIN 1 GM/VIAL ONE (08:27)
[2022-12-13] MEDS ORDERED: GLYCOPYRROLATE 0.2 MG/ML SYR ONE ×2 (08:37→09:42)
[2022-12-13] MEDS ORDERED: NEOSTIGMINE 1 MG/ML -5 ML ONE (08:39)
[2022-12-13] MEDS: MORPHINE 4 MG/ML SYR ONE ×2 (09:09→09:14)
[2022-12-13] MEDS: HYDROMORPHONE HCL 1 MG/ML INJ ONE ×2 (09:27→09:35)
--- NOTE | 2022-12-13 10:43 | RAD REPORT ---
EXAM DESCRIPTION: RAD - Fluoroscopy <1 Hour - 12/13/2022 10:34 am CLINICAL HISTORY: L3-L4 SPINAL DECOMPRESSION COMPARISON: No comparisons FINDINGS: Fluoroscopy time: 0.1 minutes
[2022-12-13 11:33] VITALS: BP 124/64; O2SAT 96
[2022-12-13 11:34] VITALS: TEMP 97
== END 2022-12-13 10:55 | disposition home or self-care (01) ==
LOC: OR 05:40
PROVIDERS: ATTEND Orthopaedic Surgery
PROC: 01NB0ZZ Release Lumbar Nerve, Open Approach (ICD-10-PCS; principal; 2022-12-13 06:30)
DX: M48.062 Spinal stenosis, lumbar region with neurogenic claudication (principal); M43.16 Spondylolisthesis, lumbar region; I10 Essential (primary) hypertension; M19.90 Unspecified osteoarthritis, unspecified site; E78.5 Hyperlipidemia, unspecified
CPT/HCPCS: 85025; 80048; 36415; 63047; J2704; J0330; J2370; J2250; J3010; J3370; J1170; J2710; J7120 ×2; 76000; J1030

== ENCOUNTER 2022-12-13 21:50 | Emergency (ER) | payer OTHER ==
--- OUTSIDE RECORDS SUMMARY | 2022-12-13 22:01 | XMS REPORT | Continuity of Care Document ---
:1940 Author Organization [facility] t Address [address] [place] [address] Care Team Providers Name Role Phone Kori Mccoy DO Primary Care Physician Kori Mccoy Attending Clinician Unavailable NBA ENGLE Attending Clinician Unavailable LEAH LE Attending Clinician Unavailable Nba Engle MD Attending Clinician Leah Le MD Attending Clinician LEAH LE Attending Clinician Unavailable LEAH LE Admitting Clinician Unavailable Payers Payer Name Policy Type Policy Number Effective Date Expiration Date S ource ERS MEDICARE [id number] 2020 [facility] 00:00:00 YOSEFERS MEDICARE [id number] [facility] HealthSelect 1 [id number] 2022 Common TRS/ERS [facility] PPO 00:00:00 [facility] Problems Condition Condition Condition Status Onset Resolution Last Treating Co mments Source Name Details Category Date Date Treatment Clinician Date Lower Lower Disease Active [facility] urinary urinary 2-10 College tract tract 00:00: of symptoms symptoms 00 Medici n (LUTS) (LUTS) e Adult BMI Adult BMI Disease Active [place] jennifer 26.0-26.9 26.0-26.9 8- Nikita ege kg/sq m kg/sq m 00:00: of 00 Medicin e Gastro-eso Gastro-eso Disease Active B muna phageal phageal 07-02 [place] reflux reflux 00:00: of disease disease 00 Medicin without without e esophagiti esophagiti s s Pneumococc Pneumococc Disease Active B muna al al 07-02 College vaccinatio vaccinatio 00:00: of n n 00 Medicin administer administer e ed at ed at current current visit visit Primary Primary Disease Active [facility] generalize generalize 07-02 Co llege d d 00:00: of (osteo)art (osteo)art 00 Me dicin hritis hritis e Proteinuri Proteinuri Disease Active B muna a, a, 07-02 College unspecifie unspecifie 00:00: of d d 00 Medicin e 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 insect insect 03-26 College sting sting 00:00: of allergy allergy 00 Medicin e Encounter Encounter Disease Active [facility] for for 22 College follow-up follow-up 00:00: of surveillan surveillan 00 Me dicin ce of ce of e 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 [place] jennifer neoplasm neoplasm 1-08 Colleg e of of 00:00: of overlappin overlappin 00 Me dicin g sites of g sites of e bladder bladder 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 2[facility]17 [facility] Pre-diabet Pre-diabet Disease Active Maverick toro es es 6-27 College 00:00: of 00 Medicin e Coronary Coronary Disease Active 2014-11 [facility] atheroscle atheroscle 2-11 Co llege rosis rosis 00:00: of 00 Medicin e Neoplasm Neoplasm Disease Active 2014-11 [facility] of skin of skin 2-11 College 00:00: of 00 Medicin e Essential Essential Disease Active 2014-11 [place] jennifer hypertensi hypertensi 0-28 Co llege on on 00:00: of 00 Medicin e Hyperlipid Hyperlipid Disease Active 2014-11 B aylor emia with emia with 0-28 Nikita ege target low target low 00:00: of density density 00 Medicin lipoprotei lipoprotei e n (LDL) n (LDL) cholestero cholestero l less l less than 130 than 130 mg/dL mg/dL Prediabete Prediabete Problem C ommon s s Spirit [facility] [id number] Acute Problem Common right-side Spirit d back - CHI pain with sciatica [facility] 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 - [facility] Elevated Elevated Problem Commo n PSA prostate Spirit specific - [facility] antigen [PSA] [facility] Foreign Foreign Problem Common body in body in Spirit left ear left ear, - CHI initial [facility] [id number] Pneumococc Problem Co mmon al Spirit vaccinatio - [facility] n 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 - [facility] oste[facility] (osteo[facility] [id number] Gastro-eso Problem Co mmon phageal Spirit reflux - CHI disease [facility] esophagiti Medica l s Center Hypertensi HTN Problem Commo n on (hypertens Spirit ion) - [facility] Allergic Allergic Problem Commo n rhinitis rhinitis, Spiri t unspecifie - CHI d [facility], Medical unspecifie Center d trigger History of History of Problem C ommon insect insect Spirit sting sting - [facility]I allergy allergy [facility] Hyperlipid Hyperlipid Problem C ommon emia emia Spirit - [facility] [id number] Dizziness Problem Com mon Spirit - [facility] [id number] Leukocytop Problem Com mon enia, Spirit unspecifie - [facility]I d [facility] Iron Iron Problem Common deficiency deficiency Sp kacy anemia anemia, - CHI unspecifie [facility] iron [facility] deficiency Medica l anemia Center type [id number] Controlled Problem Co mmon type 2 Spirit diabetes - CHI mellitus [facility] complicati Medica l on, Center without long-term current use of insulin [id number] Lymphangit Problem Comm on is Spirit - [facility] [id number] Mass of Problem Commo n urinary Spirit bladder - [facility] [id number] Medication Problem Co mmon side Spirit effect - [facility] [id number] Serum Problem Common total [facility] bilirubin - [facility] elevated 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 [id number] Adult BMI Problem Com mon 26.0-26.9 Spirit kg/sq m - [facility] Microscopi Microscopi Problem C ommon c c Spirit hematuria hematuria - I [facility] [id number] Type 2 Problem Common diabetes Spirit mellitus - [facility] with other [facility] kidney Medical complicati Center on Malignant Malignant Problem Com mon neoplasm neoplasm Spirit of lateral of lateral - [facility] wall of wall of [facility] bladder bladder [facility] [id number] Upper Problem Common respirator Spirit y tract - [facility] infection, [facility] d [facility] Chronic Chronic Problem Common fatigue fatigue [facility] syndrome - [facility] [id number] Adult Problem Common general Spirit medical - [facility] exam 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 [id number] Lumbago Problem Comm on with Spirit sciatica, - CHI right side [facility] [id number] Dupuytren Problem Com mon contractur Spirit e - [facility] [id number] Pernicious Problem Com mon anemia Spirit [facility] [id number] Diverticul Problem Co mmon osis Spirit - [facility] Sciatica Back pain Problem Comm on with Spirit left-sided - CHI sciatica 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 Allergies, Adverse Reactions, Alerts Allergy Allergy Status Severity Reaction(s) Onset Inactive Treating Comm ents Source Name Type Date Date Clinician Andreas Zarate Active Other [facility] omycin ty to 5-13 reaction( College adverse 00:00: s): of reaction 00 diarrhea, Medic in s to bad e drug taste, dizziness Levoflox Drug Active 2018-11 [facility] acin Intolera 12-25 [facility] Center Levaquin Propensi Active 2018-11 Other [facility] ty to 12-25 reaction( College adverse 00:00: s): of reaction 00 severe Medicin s to leg e drug cramps Levoflox Propensi Active 2018-11 Other [facility] acin ty to 12-25 reaction( College adverse 00:00: s): of reaction 00 severe Medicin s to leg e drug cramps andreas andersen Active diarrhea, Com mon omycin omycin bad taste, Spirit dizziness - [facility] [id number] Drug Active severe leg Common allergy cramps [facility] Social History Social Habit Start Date Stop Date Quantity Comments Source History of Common Spirit - Tobacco Use [facility] Exposure to 2022-11-15 2022-11-25 Not sure [facility] Joseph e SARS-CoV-2 00:00:00 12:07:00 of Medicine (event) History [facility] 2022-11-18 2022-11-18 2 [facility] ge Physical Activity 00:00:00 00:00:00 of Medi cine DPW History [facility] 2022-11-18 2022-11-18 3 [facility] ge Physical Activity 00:00:00 00:00:00 of Medi cine [facility]PS Tobacco Comment 2022-07-28 2022-07-28 7 [facility] llege 00:00:00 00:00:00 of Medicine Alcohol intake 2019-10-31 2019-10-31 [facility]er [facility]00 of [facility] (finding) Tobacco use and 2019-10-29 2019-10-[address] [facility] exposure 00:00:00 00:00:00 Medical Center Sex Assigned At [birth year] JERSON [place] 00:00:00 00:00:00 Medical Center Smoking Status Start Date Stop Date Source Never Smoker Common [facility] Medications Ordered Filled Start Stop Current Ordering Indication Dosage Frequency Signature Comments Components Source Medication Medication Date Date Medication? Clinician (SIG) Name Name Cyanocobala Yes Take by [place] jennifer min 12 mouth. College (VITAMIN 12:35: of B-12 OR) 01 Medicin e ferrous 2022- No 325mg Take 325 Bayl or sulfate 325 11-25-12 mg by Colleg e (65 Fe) MG 12:35: 00:00 mouth of tablet 01 :00 daily. Medicin e sodium Yes 1g Take 1 g Hermes chloride 1 12 by mouth 3 Col lege g tablet 12:32: times of 45 daily. Medicin e Blood Yes one [facility] Glucose 11-25 College Monitoring 12:32: of Suppl 45 Medicin (FREESTYLE e LITE) [place] montelukast Yes 1 tablet Ba ylor (SINGULAIR) 11-25 College 10 MG 12:32: of tablet 45 Medicin e Zinc 50 MG Yes 1{tbl} 1 Tablet. [facility] TABS 11-25 College 12:32: of 45 Medicin e Ferrous Ferrous [...] MG 00 :00 s_neede d} Cyclobenzap Cyclobenzap 202- No 1{table QD Cyclobenza rine HCl 5 rine HCl 5 07-13-14 t_at_be gulshan HCl MG MG 00:00: 00:00 dtime_a 5 MG 00 :00 s_neede d} Tamsulosin Yes TAKE 1 Baylo r HCl 0.4 MG 8-28 CAPSULE BY Col lege CAPS 00:00: MOUTH ONCE of 00 DAILY AT Medicin BEDTIME e Toradol Toradol No 15mg Common (Ketorolac) (Ketorolac) 8-10 S pirit 00:00: - [facility] [address] [facility] Kenalog Kenalog No 40mg Common (Triamcinol (Triamcinol 8-10 S pirit one) one) 00:00: - [facility] [address] [facility] Toradol Toradol No 15mg Common (Ketorolac) (Ketorolac) 8-10 S pirit 00:00: - [facility] Kenalog Kenalog No 40mg Common (Triamcinol (Triamcinol 8-10 S pirit one) one) 00:00: - [facility] [address] [facility] Toradol Toradol 2021-0 No 15mg Common (Ketorolac) (Ketorolac) 8-10 S pirit 00:00: - [facility]I [address] [facility] Kenalog Kenalog 2021-0 No 40mg Common (Triamcinol (Triamcinol 8-10 S pirit one) one) 00:00: - [facility] [address] [facility] Toradol Toradol 2021-0 No 15mg Common (Ketorolac) (Ketorolac) 8-10 S pirit 00:00: - [facility]I [address] [facility] Kenalog Kenalog 2021-0 No 40mg Common (Triamcinol (Triamcinol 8-10 S pirit one) one) 00:00: - [facility]I [address] [facility] Toradol Toradol 2021-0 No 15mg Common (Ketorolac) (Ketorolac) 8-10 S pirit 00:00: - [facility]I [address] [facility] Kenalog Kenalog 2021-0 No 40mg Common (Triamcinol (Triamcinol 8-10 S pirit one) one) 00:00: - [facility]I [address] [facility] Toradol Toradol 2021-0 No 15mg Common (Ketorolac) (Ketorolac) 8-10 S pirit 00:00: - [facility] [address] [facility] Kenalog Kenalog 2021-0 No 40mg Common (Triamcinol (Triamcinol 8-10 S pirit one) one) 00:00: - [facility] [address] [facility] Toradol Toradol 2021-0 No 15mg Common (Ketorolac) (Ketorolac) 8-10 S pirit 00:00: - [facility]I [address] [facility] Kenalog Kenalog 2021-0 No 40mg Common (Triamcinol (Triamcinol 8-10 S pirit one) one) 00:00: - [facility]I [address] [facility] Toradol Toradol 2021-0 No 15mg Common (Ketorolac) (Ketorolac) 8-10 S pirit 00:00: - [facility] Kenalog Kenalog 2021-0 No 40mg Common (Triamcinol (Triamcinol 8-10 S pirit one) one) 00:00: - [facility]I [address] [facility] Toradol Toradol 2021-0 No 15mg Common (Ketorolac) (Ketorolac) 8-10 S pirit 00:00: - [facility]I [address] [facility] Kenalog Kenalog 2021-0 No 40mg Common (Triamcinol (Triamcinol 8-10 S pirit one) one) 00:00: - [facility]I [address] [facility] Toradol Toradol 2021-0 No 15mg Common (Ketorolac) (Ketorolac) 8-10 S pirit 00:00: - [facility]I [address] [facility] Kenalog Kenalog 2021-0 No 40mg Common (Triamcinol (Triamcinol 8-10 S pirit one) one) 00:00: - [facility]I [address] [facility] Toradol Toradol 2021-0 No 15mg Common (Ketorolac) (Ketorolac) 8-10 S pirit 00:00: - [facility]I [address] [facility] Kenalog Kenalog 2021-0 No 40mg Common (Triamcinol (Triamcinol 8-10 S pirit one) one) 00:00: - [facility] [address] [facility] Toradol Toradol 2021-0 No 15mg Common (Ketorolac) (Ketorolac) 8-10 S pirit 00:00: - [facility] [address] [facility] Kenalog Kenalog 2021-0 No 40mg Common (Triamcinol (Triamcinol 8-10 S pirit one) one) 00:00: - [facility]I [address] [facility] Toradol Toradol 2021-0 No 15mg Common (Ketorolac) (Ketorolac) 8-10 S pirit 00:00: - [facility]I [address] [facility] Kenalog Kenalog 2021-0 No 40mg Common (Triamcinol (Triamcinol 8-10 S pirit one) one) 00:00: - [facility] [address] [facility] Toradol Toradol 2021-0 No 15mg Common (Ketorolac) (Ketorolac) 8-10 S pirit 00:00: - [facility]I [address] [facility] Kenalog Kenalog 2021-0 No 40mg Common (Triamcinol (Triamcinol 8-10 S pirit one) one) 00:00: - [facility]I [address] [facility] Toradol Toradol 2021-0 No 15mg Common (Ketorolac) (Ketorolac) 8-10 S pirit 00:00: - [facility]I [address] [facility] Kenalog Kenalog 2021-0 No 40mg Common (Triamcinol (Triamcinol 8-10 S pirit one) one) 00:00: - [facility]I [address] [facility] Toradol Toradol 2021-0 No 15mg Common (Ketorolac) (Ketorolac) 8-10 S pirit 00:00: - [facility]I [address] [facility] Kenalog Kenalog 2021-0 No 40mg Common (Triamcinol (Triamcinol 8-10 S pirit one) one) 00:00: - [facility] [address] [facility] methylPREDN methylPREDN 2021-0 2- No QD methylPRED ISolone 4 ISolone 4 8- 08-16 NISolone 4 MG MG 00:00: 00:00 MG 00 :00 methylPREDN methylPREDN 2021-0 2- No QD methylPRED ISolone 4 ISolone 4 8-10 08-16 NISolone 4 MG MG 00:00: 00:00 MG 00 :00 Celestone Celestone 2021-0 No 6mg Com mon Soluspan Soluspan 5-19 Spirit (Betamethas (Betamethas 00:00: - CHI one) one) [address] [facility] Celestone Celestone 2021-0 No 6mg Com mon Soluspan Soluspan 5-19 Spirit (Betamethas (Betamethas 00:00: - CHI one) one) [address] [facility] Lidocaine Lidocaine 2021-0 No 10mg Com mon 5-19 Spirit 00:00: - [facility] [address] [facility] Lidocaine Lidocaine 2021-0 No 10mg Com mon 5-19 Spirit 00:00: - [facility] [address] [facility] Celestone Celestone 2021-0 No 6mg Com mon Soluspan Soluspan 5-19 Spirit (Betamethas (Betamethas 00:00: - CHI one) one) [address] [facility] Celestone Celestone 2022-0 No 6mg Com mon Soluspan Soluspan 5-19 Spirit (Betamethas (Betamethas 00:00: - CHI one) one) [address] [facility] Lidocaine Lidocaine 2021-0 No 10mg Com mon 5- Spirit 00:00: - [facility] [address] [facility] Lidocaine Lidocaine 2021-0 No 10mg Com mon 5- Spirit 00:00: - [facility] [address] [facility] Celestone Celestone 2021-0 No 6mg Com mon Soluspan Soluspan 5-19 Spirit (Betamethas (Betamethas 00:00: - CHI one) one) [address] [facility] Celestone Celestone 2021-0 No 6mg Com mon Soluspan Soluspan 5-19 Spirit (Betamethas (Betamethas 00:00: - CHI one) one) [address] [facility] Lidocaine Lidocaine 2021-0 No 10mg Com mon 5- Spirit 00:00: - [facility] [address] [facility] Lidocaine Lidocaine 2021-0 No 10mg Com mon 5- Spirit 00:00: - [facility] [address] [facility] Celestone Celestone 2021-0 No 6mg Com mon Soluspan Soluspan 5-19 Spirit (Betamethas (Betamethas 00:00: - CHI one) one) [address] [facility] Celestone Celestone 2021-0 No 6mg Com mon Soluspan Soluspan 5-19 Spirit (Betamethas (Betamethas 00:00: - CHI one) one) [address] [facility] Lidocaine Lidocaine 2021-0 No 10mg Com mon 5- Spirit 00:00: - [facility] [address] [facility] Lidocaine Lidocaine 2021-0 No 10mg Com mon - Spirit 00:00: - [facility] [address] [facility] Celestone Celestone 2021-0 No 6mg Com mon Soluspan Soluspan 5-19 Spirit (Betamethas (Betamethas 00:00: - CHI one) one) [address] [facility] Celestone Celestone 2021-0 No 6mg Com mon Soluspan Soluspan 5-19 Spirit (Betamethas (Betamethas 00:00: - CHI one) one) [address] [facility] Lidocaine Lidocaine 2022-0 No 10mg Com mon - Spirit 00:00: - [facility] [address] [facility] Lidocaine Lidocaine 2-0 No 10mg Com mon - Spirit 00:00: - [facility]I [address] [facility] Celestone Celestone 2021-0 No 6mg Com mon Soluspan Soluspan 5-19 Spirit (Betamethas (Betamethas 00:00: - CHI one) one) [address] [facility] Celestone Celestone 2021-0 No 6mg Com mon Soluspan Soluspan 5-19 Spirit (Betamethas (Betamethas 00:00: - CHI one) one) [address] [facility] Lidocaine Lidocaine 2-0 No 10mg Com 04-01 Spirit 00:00: - [facility] [address] [facility] Lidocaine Lidocaine 2-0 No 10mg Com 04-01 Spirit 00:00: - [facility] [address] [facility] Celestone Celestone 2021-0 No 6mg Com mon Soluspan Soluspan 5-19 Spirit (Betamethas (Betamethas 00:00: - CHI one) one) [address] [facility] Celestone Celestone 2021-0 No 6mg Com mon Soluspan Soluspan 5-19 Spirit (Betamethas (Betamethas 00:00: - CHI one) one) [address] [facility] Lidocaine Lidocaine 2-0 No 10mg Com 04-01 Spirit 00:00: - [facility] [address] [facility] Lidocaine Lidocaine 2-0 No 10mg Com mon 04-01 Spirit 00:00: - [facility] [address] [facility] Celestone Celestone 2021-0 No 6mg Com mon Soluspan Soluspan 5-19 Spirit (Betamethas (Betamethas 00:00: - CHI one) one) [address] [facility] Celestone Celestone 2021-0 No 6mg Com mon Soluspan Soluspan 5-19 Spirit (Betamethas (Betamethas 00:00: - CHI one) one) [address] [facility] Lidocaine Lidocaine 2-0 No 10mg Com 04-01 Spirit 00:00: - [facility] [address] [facility] Lidocaine Lidocaine 2-0 No 10mg Com 04-01 Spirit 00:00: - [facility] [address] [facility] Celestone Celestone 2-0 No 6mg Com mon Soluspan Soluspan 5-19 Spirit (Betamethas (Betamethas 00:00: - CHI one) one) [address] [facility] Celestone Celestone 2-0 No 6mg Com mon Soluspan Soluspan 5-19 Spirit (Betamethas (Betamethas 00:00: - CHI one) one) [address] [facility] Lidocaine Lidocaine 2-0 No 10mg Com mon 5-19 Spirit 00:00: - [facility]I [address] [facility] Lidocaine Lidocaine 2-0 No 10mg Com mon 5-19 Spirit 00:00: - [facility]I [address] [facility] Celestone Celestone 2-0 No 6mg Com mon Soluspan Soluspan 5-19 Spirit (Betamethas (Betamethas 00:00: - CHI one) one) [address] [facility] Celestone Celestone 2-0 No 6mg Com mon Soluspan Soluspan 5-19 Spirit (Betamethas (Betamethas 00:00: - CHI one) one) [address] [facility] Lidocaine Lidocaine 2-0 No 10mg Com mon 5-19 Spirit 00:00: - [facility] [address] [facility] Lidocaine Lidocaine 2-0 No 10mg Com mon 5- Spirit 00:00: - [facility] [address] [facility] Celestone Celestone 2-0 No 6mg Com mon Soluspan Soluspan 5-19 Spirit (Betamethas (Betamethas 00:00: - CHI one) one) [address] [facility] Lidocaine Lidocaine 2-0 No 10mg Com mon 5-19 Spirit 00:00: - [facility] [address] [facility] Lidocaine Lidocaine 2-0 No 10mg Com mon 5-19 Spirit 00:00: - [facility] [address] [facility] Celestone Celestone 2-0 No 6mg Com mon Soluspan Soluspan 5-19 Spirit (Betamethas (Betamethas 00:00: - CHI one) one) [address] [facility] Celestone Celestone 2-0 No 6mg Com mon Soluspan Soluspan 5-19 Spirit (Betamethas (Betamethas 00:00: - CHI one) one) [address] [facility] Lidocaine Lidocaine 2-0 No 10mg Com mon 5- Spirit 00:00: - [facility] [address] [facility] Lidocaine Lidocaine 2-0 No 10mg Com mon 5- Spirit 00:00: - [facility] [address] [facility] Celestone Celestone 2-0 No 6mg Com mon Soluspan Soluspan 5-19 Spirit (Betamethas (Betamethas 00:00: - CHI one) one) [address] [facility] Celestone Celestone 2-0 No 6mg Com mon Soluspan Soluspan 5-19 Spirit (Betamethas (Betamethas 00:00: - CHI one) one) [address] [facility] Lidocaine Lidocaine 2-0 No 10mg Com mon - Spirit 00:00: - [facility] [address] [facility] Lidocaine Lidocaine 2-0 No 10mg Com mon - Spirit 00:00: - [facility] [address] [facility] Celestone Celestone 2-0 No 6mg Com mon Soluspan Soluspan 5-19 Spirit (Betamethas (Betamethas 00:00: - CHI one) one) [address] [facility] Celestone Celestone 2-0 No 6mg Com mon Soluspan Soluspan 5-19 Spirit (Betamethas (Betamethas 00:00: - CHI one) one) [address] [facility] Lidocaine Lidocaine 2-0 No 10mg Com mon - Spirit 00:00: - [facility] [address] [facility] Lidocaine Lidocaine 2-0 No 10mg Com mon 5- Spirit 00:00: - [facility] [address] [facility] Celestone Celestone 2-0 No 6mg Com mon Soluspan Soluspan 5-19 Spirit (Betamethas (Betamethas 00:00: - CHI one) one) [address] [facility] Celestone Celestone 2-0 No 6mg Com mon Soluspan Soluspan 5-19 Spirit (Betamethas (Betamethas 00:00: - CHI one) one) [address] [facility] Lidocaine Lidocaine 2-0 No 10mg Com mon - Spirit 00:00: - [facility] [address] [facility] Lidocaine Lidocaine 2-0 No 10mg Com mon 5- Spirit 00:00: - [facility] [address] [facility] Celestone Celestone 2021-0 No 6mg Com mon Soluspan Soluspan 5-19 Spirit (Betamethas (Betamethas 00:00: - CHI one) one) [address] [facility] Celestone Celestone 2021-0 No 6mg Com mon Soluspan Soluspan 5-19 Spirit (Betamethas (Betamethas 00:00: - CHI one) one) [address] [facility] Celestone Celestone 2021-0 No 6mg Com mon Soluspan Soluspan 5-19 Spirit (Betamethas (Betamethas 00:00: - CHI one) one) [address] [facility] Lidocaine Lidocaine 2-0 No 10mg Com mon 04-01 [facility] 00:00: - [facility] [address] [facility] Lidocaine Lidocaine 2-0 No 10mg Com mon - [facility] 00:00: - [facility] [address] [facility] Celestone Celestone 2-0 No 6mg Com mon Soluspan Soluspan 5-19 Spirit (Betamethas (Betamethas 00:00: - CHI one) one) [address] [facility] Celestone Celestone 2021-0 No 6mg Com mon Soluspan Soluspan 5-19 Spirit (Betamethas (Betamethas 00:00: - CHI one) one) [address] [facility] Lidocaine Lidocaine 2-0 No 10mg Com 04-01 [facility] 00:00: - [facility] [address] [facility] Lidocaine Lidocaine 2-0 No 10mg Com mon 04-01 [facility] 00:00: - [facility] [address] [facility] Celestone Celestone 2-0 No 6mg Com mon Soluspan Soluspan 5-19 Spirit (Betamethas (Betamethas 00:00: - CHI one) one) [address] [facility] Celestone Celestone 2-0 No 6mg Com mon Soluspan Soluspan 5-19 [facility] (Betamethas (Betamethas 00:00: - CHI one) one) [address] [facility] Lidocaine Lidocaine 2-0 No 10mg Com mon - [facility] 00:00: - [facility] [address] [facility] Lidocaine Lidocaine 2021-0 No 10mg Com mon - [facility] 00:00: - [facility] [address] [facility] Celestone Celestone 2021-0 No 6mg Com mon Soluspan Soluspan 5-19 [facility] (Betamethas (Betamethas 00:00: - CHI one) one) [address] [facility] Celestone Celestone 2021-0 No 6mg Com mon Soluspan Soluspan 5-19 [facility] (Betamethas (Betamethas 00:00: - CHI one) one) [address] [facility] Lidocaine Lidocaine 2021-0 No 10mg Com mon 04-01 [facility] 00:00: - [facility] [address] [facility] Lidocaine Lidocaine 2021-0 No 10mg Com mon 04-01 [facility] 00:00: - [facility] [address] [facility] Celestone Celestone 2021-0 No 6mg Com mon Soluspan Soluspan 5-19 [facility] (Betamethas (Betamethas 00:00: - CHI one) one) [address] [facility] Celestone Celestone 2021-0 No 6mg Com mon Soluspan Soluspan 5-19 [facility] (Betamethas (Betamethas 00:00: - CHI one) one) [address] [facility] Lidocaine Lidocaine 2021-0 No 10mg Com 04-01 [facility] 00:00: - [facility] [address] [facility] Lidocaine Lidocaine 2021-0 No 10mg Com mon 04-01 [facility] 00:00: - [facility] [address] [facility] Celestone Celestone 2021-0 No 6mg Com mon Soluspan Soluspan 5-19 [facility] (Betamethas (Betamethas 00:00: - CHI one) one) [address] [facility] Celestone Celestone 2021-0 No 6mg Com mon Soluspan Soluspan 5-19 [facility] (Betamethas (Betamethas 00:00: - CHI one) one) [address] [facility] Lidocaine Lidocaine 2021-0 No 10mg Com 04-01 [facility] 00:00: - [facility] [address] [facility] Lidocaine Lidocaine 2021-0 No 10mg Com mon 04-01 [facility] 00:00: - [facility] [address] [facility] Folic Acid Folic Acid 2021-0 2- No [...] 00:00: 00:00 00 :00 fexofenadin 2020-11 Yes [facility] e (ODETTE) 11-22 [place] 180 MG 00:00: of tablet Medicin e Triamcinolo 2020-11 Yes [facility] ne 1 [employer] Acetonide 00:00: of 55 MCG/ACT Medicin AERO e famotidine Yes 40mg Take 40 mg B aylor (PEPCID) 40 8-12 by mouth Nikita ege MG tablet 00:00: daily. of 00 Medicin e amLODIPine Yes [facility] Besylate-Ce 02-18 [place] lecoxib 00:00: of 2.5-200 MG 00 Medicin TABS e Flomax 0.4 Flomax 0.4 2020- No 1{capsu QD Flomax 0.4 MG MG 3-10 08-19 le} MG 00:00: 00:00 00 :00 ACCU-CHEK 2020-0 Yes USE 1 [facility] CLAIRE PLUS 04-24 STRIP TO Colle ge 00:00: CHECK of 00 GLUCOSE Medicin TWICE e DAILY Accu-Chek Accu-Chek 2020-0 Yes Na Mccoy as Common Claire Plus Claire Plus 04-22 directed [facility] 00:00: - [facility] Accu-Chek 2020-0 Yes as [facility] Softclix 04-22 directed [place] Lancets 00:00: of MISC 00 Medicin e rosuvastati 2020-0 Yes [facility] n (CRESTOR) 6 [place] 40 MG 00:00: of tablet 00 Medicin e Olopatadine 2019-0 Yes [facility] HCl 0.6 % 04-09 [place] SOLN 00:00: of 00 Medicin e lisinopril 2020-0 Yes [facility] (PRINIVIL, 04-08 [place] ZESTRIL) 40 00:00: of MG tablet Medicin e pantoprazol 2018-11 Yes 40mg QD Take [address] [facility] 2-17 by mouth [facility] (PROTONIX) 18:08: daily. Medic al 40 MG 13 [place] tablet levothyroxi 2018-11 Yes QD Take by [facility] 25 mcg 2-17 mouth [facility] Cap 18:08: daily . [address] 2018-11 Yes 10mg QD Take [address] (SINGULAIR) 2-17 by mouth Luke s 10 mg 18:08: nightly. Medical tablet [address] [place] [address] 2018-11 Yes 25mg QD Take [address] (ANTIVERT) 2-17 by mouth [facility] 25 MG 18:08: daily. Medical tablet [address] [place] [address] or 2018-[address] [facility] Non-Formula 2-17 100mg QID, Grace kes ry 18:08: Zinc 50mg Medical Medication 13 daily, Center Coenzyme 10 BID, Vit D2 1000u daily, Align probiotic, Chromium 200mg daily, Areds 2caps daily. lisinopril 2018-11 Yes 40mg QD Take [address] (PRINIVIL,Z 2-17 by mouth [facility] ESTRIL) 40 18:08: daily. Medic al MG tablet [address] [place] [address] rosuvastati 2018-11 Yes 40mg QD Take [address] n (CRESTOR) 2-17 by mouth Luke s 40 MG 18:08: daily. Medical tablet [address] [place] [address] pantoprazol 2018-11 Yes 40mg QD Take [address] e 2-17 by mouth [facility] (PROTONIX) 18:08: daily. Medic al [address] [place] [address] tablet levothyroxi 2018-11 Yes QD Take by [facility] 25 mcg 2-17 mouth [facility] Cap 18:08: daily . [address] 2018-11 Yes 10mg QD Take [address] (SINGULAIR) 2-17 by mouth Luke s 10 mg 18:08: nightly. Medical tablet [address] [place] [address] 2018-11 Yes 25mg QD Take [address] (ANTIVERT) 2-17 by mouth [facility] 25 MG 18:08: daily. Medical tablet [address] [place] [address] or 2018-11 Yes [address]esium [facility] Non-Formula 2-17 100mg QID, Grace kes ry 18:08: Zinc 50mg Medical Medication 13 daily, Center Coenzyme 10 BID, Vit D2 1000u daily, Align probiotic, Chromium 200mg daily, Areds 2caps daily. lisinopril 2018-11 Yes 40mg QD Take [address] (PRINIVIL,Z 2-17 by mouth [facility] ESTRIL) 40 18:08: daily. Medic al MG tablet 13 [place] rosuvastati 2018-11 Yes 40mg QD Take [address] n (CRESTOR) 2-17 by mouth Luke s 40 MG 18:08: daily. Medical tablet [address] [place] [address] pantoprazol 2018-11 Yes 40mg QD Take [address] e 2-17 by mouth [facility] (PROTONIX) 18:08: daily. Medic al 40 MG 13 [place] tablet levothyroxi 2018-11 Yes QD Take by [facility] 25 mcg 2-17 mouth [facility] Cap 18:08: daily . [address] montelukast 2018-11 Yes 10mg QD Take [address] (SINGULAIR) 2-17 by mouth Luke [facility] 10 mg 18:08: nightly. Medical tablet [address] [place] [address] meclizine 2018-11 Yes 25mg QD Take [address] (ANTIVERT) 2-17 by mouth [facility] 25 MG 18:08: daily. Medical tablet 13 [place] Missing or 2018-11 Yes Magnesium CH I [...] 18:08: daily. Medic al MG tablet 13 [place] rosuvastati 2018-11 Yes 40mg QD Take [address] n (CRESTOR) 2-17 by mouth Luke [facility] 40 MG 18:08: daily. Medical tablet [address] [place] [address] pantoprazol 2018-11 Yes 40mg QD Take [address] e 2-17 by mouth [facility] (PROTONIX) 18:08: daily. Medic al [address] [place] [address] tablet levothyroxi 2018-11 Yes QD Take by [facility] 25 mcg 2-17 mouth [facility] Cap 18:08: daily . [address] 2018-11 Yes 10mg QD Take [address] (SINGULAIR) 2-17 by mouth Luke [facility] 10 mg 18:08: nightly. Medical [facility] 2018-11 Yes 25mg QD Take [address] (ANTIVERT) 2-17 by mouth [facility] 25 MG 18:08: daily. Medical tablet 13 Center Missing or 2018-11 Yes Magnesium CH I [...] 18:08: daily. Medic al MG tablet 13 [place] rosuvastati 2018-11 Yes 40mg QD Take [address] n (CRESTOR) 2-17 by mouth Luke [facility] 40 MG 18:08: daily. Medical tablet 13 [place] sulfamethox 2018-11 Yes [id number] 1{tbl} Take 1 Tab [facility] azole-trime 2-11 by mouth Nikita ege thoprim 00:00: two times of (BACTRIM 00 daily. Medicin DS) 800-160 e MG per tablet Shweeb No 40mg Common (Triamcinol (Triamcinol 3-06 S pirit one) one) 00:00: - [facility] [address] [facility] uniRowlorelei Kenalog No 40mg Common (Triamcinol (Triamcinol 3-06 S pirit one) one) 00:00: - [facility] uniRowlorelei [employer] No 40mg Common (Triamcinol (Triamcinol 3-06 S pirit one) one) 00:00: - [facility] [address] [facility] uniRowlorelei Kenalog No 40mg Common (Triamcinol (Triamcinol 3-06 S pirit one) one) 00:00: - [facility] [employer] Kenalog 2017-0 No 40mg Common (Triamcinol (Triamcinol 3-06 S pirit one) one) 00:00: - [facility] uniRowlorelei Kenalog 2017-0 No 40mg Common (Triamcinol (Triamcinol 3-06 S pirit one) one) 00:00: - [facility] [address] [facility] Kenalog Kenalog 2018-0 No 40mg Common (Triamcinol (Triamcinol 3-06 S pirit one) one) 00:00: - [facility] [address] [facility] Kenalog Kenalog 2018-0 No 40mg Common (Triamcinol (Triamcinol 3-06 S pirit one) one) 00:00: - [facility] [address] [facility] Kenalog Kenalog 2018-0 No 40mg Common (Triamcinol (Triamcinol 3-06 S pirit one) one) 00:00: - [facility] [address] [facility] Kenalog Kenalog 2018-0 No 40mg Common (Triamcinol (Triamcinol 3-06 S pirit one) one) 00:00: - [facility] [address] [facility] Kenalog Kenalog 2018-0 No 40mg Common (Triamcinol (Triamcinol 3-06 S pirit one) one) 00:00: - [facility] [address] [facility] Kenalog Kenalog 2018-0 No 40mg Common (Triamcinol (Triamcinol 3-06 S pirit one) one) 00:00: - [facility] [address] [facility] Kenalog Kenalog 2018-0 No 40mg Common (Triamcinol (Triamcinol 3-06 S pirit one) one) 00:00: - [facility] [address] [facility] Kenalog Kenalog 2018-0 No 40mg Common (Triamcinol (Triamcinol 3-06 S pirit one) one) 00:00: - [facility] [address] [facility] Kenalog Kenalog 2018-0 No 40mg Common (Triamcinol (Triamcinol 3-06 S pirit one) one) 00:00: - [facility] [address] [facility] Kenalog Kenalog 2018-0 No 40mg Common (Triamcinol (Triamcinol 3-06 S pirit one) one) 00:00: - [facility] [address] [facility] Kenalog Kenalog 2018-0 No 40mg Common (Triamcinol (Triamcinol 3-06 S pirit one) one) 00:00: - [facility] [address] [facility] Kenalog Kenalog 2018-0 No 40mg Common (Triamcinol (Triamcinol 3-06 S pirit one) one) 00:00: - [facility] [address] [facility] Kenalog Kenalog 2018-0 No 40mg Common (Triamcinol (Triamcinol 3-06 S pirit one) one) 00:00: - [facility] [address] [facility] Kenalog Kenalog 2018-0 No 40mg Common (Triamcinol (Triamcinol 3-06 S pirit one) one) 00:00: - [facility] [address] [facility] Kenalog Kenalog 2018-0 No 40mg Common (Triamcinol (Triamcinol 3-06 S pirit one) one) 00:00: - [facility] [address] [facility] Kenalog Kenalog 2018-0 No 40mg Common (Triamcinol (Triamcinol 3-06 S pirit one) one) 00:00: - [facility] [address] [facility] Kenalog Kenalog 2018-0 No 40mg Common (Triamcinol (Triamcinol 3-06 S pirit one) one) 00:00: - [facility] [address] [facility] Kenalog Kenalog 2018-0 No 40mg Common (Triamcinol (Triamcinol 3-06 S pirit one) one) 00:00: - [facility] [address] [facility] Kenalog Kenalog 2018-0 No 40mg Common (Triamcinol (Triamcinol 3-06 S pirit one) one) 00:00: - [facility] [address] [facility] Kenalog Kenalog 2018-0 No 40mg Common (Triamcinol (Triamcinol 3-06 S pirit one) one) 00:00: - [facility] [address] [facility] Kenalog Kenalog 2018-0 No 40mg Common (Triamcinol (Triamcinol 3-06 S pirit one) one) 00:00: - [facility] [address] [facility] Kenalog Kenalog 2018-0 No 40mg Common (Triamcinol (Triamcinol 3-06 S pirit one) one) 00:00: - [facility] [address] [facility] Kenalog Kenalog 2018-0 No 40mg Common (Triamcinol (Triamcinol 3-06 S pirit one) one) 00:00: - [facility] [address] [facility] Nasacort Nasacort No 2{spray QD Nasacort Allergy [...] Na Mccoy one Common [facility] - [facility] Levothyroxi Levothyroxi Yes Na Mccoy 1 tablet Common ne Sodium ne Sodium on an Spir it empty - CHI stomach in [facility] Lancets Lancets Yes Na Mcocy as Common directed Spirit - [facility] Accu-Chek Accu-Chek Yes Na Mccoy as Co mmon Softclix Softclix directed Spi rit Lancets Lancets - CHI [facility] Meclizine Meclizine Yes Na Mccoy TAKE 1 Common HCl HCl TABLET BY Spirit MOUTH - [facility] THREE [facility] Mobic Mobic Yes Na Mccoy 1 tablet Common [facility] - [facility] Euthyrox Euthyrox Yes Na Mccoy TAKE 1 Co mmon TABLET BY Spirit MOUTH ONCE - CHI DAILY IN [facility] ON Medical AN EMPTY Center STOMACH EpiPen EpiPen Yes Na Mccoy not Common 2-Gerald 2-Gerald defined [facility] Olopatadine Olopatadine Yes Na Mccoy 2 sprays Common HCl HCl in each Spirit nostril [facility] Meclizine Meclizine Yes Na Mccoy TAKE 1 Common HCl HCl TABLET BY Spirit MOUTH 3 - CHI TIMES A [facility] Levothyroxi Levothyroxi Yes Na Mccoy 1 tablet Common ne Sodium ne Sodium on an Spir it empty - CHI stomach in [facility] Cipro Cipro Yes Na Mccoy 1 tablet [facility] Augmentin Augmentin Yes Na Mccoy 1 tablet [facility] Crestor Crestor Yes Na Mccoy 1 tablet Co mmon [facility] Pantoprazol Pantoprazol Yes Na Mccoy 1 tablet Common e Sodium e Sodium [facility] blood blood Yes Na Mccoy as Common glucose glucose directed Spiri t test strip test strip - C HI [facility] Singulair Singulair Yes Na Mccoy 1 tablet [facility] Lisinopril Lisinopril Yes Na Mccoy 1 tablet [facility] Accu-Chek Accu-Chek No QD Accu-Chek Claire Plus [...] MG HCl 25 MG HCl 25 MG Folic Acid Folic Acid No Folic Acid 1 MG 1 MG 1 MG amLODIPine amLODIPine No 1{table QD amLODIPine Besylate Besylate t} Besylate 2.5 MG 2.5 MG 2.5 MG Nasacort Nasacort No 2{spray QD Nas[place]ort Allergy Allergy _in_eac Allergy 24HR 55 24HR 55 h_nostr 24HR 55 MCG/ACT MCG/ACT il} MCG/ACT Accu-Chek Accu-Chek No Accu-Chek Claire Plus Claire Plus Claire Plus - - - Magnesium Magnesium No Magnesium Glycinate Glycinate Glycinate CoQ-10 CoQ-10 No CoQ-10 Lisinopril Lisinopril No 1{table QD Lisinopril 40 MG 40 MG t} 40 MG Montelukast Montelukast No 1{table QD Montelukas Sodium 10 Sodium 10 t} t Sodium MG MG 10 MG Zinc 50 MG Zinc 50 MG No 1{table QD Zinc 50 MG t} Align Align No Align Odette Odette No QD Odette Allergy 180 Allergy 180 Allergy MG MG 180 MG Euthyrox 50 Euthyrox 50 No QD Euthyrox MCG MCG 50 MCG Chromium Chromium No 1{capsu QD Chromium 200 [...] MG HCl 25 MG HCl 25 MG Folic Acid Folic Acid No Folic Acid 1 MG 1 MG 1 MG amLODIPine amLODIPine No 1{table QD amLODIPine Besylate Besylate t} Besylate 2.5 MG 2.5 MG 2.5 MG Nasacort Nasacort No 2{spray QD [place] Allergy Allergy _in_eac Allergy 24HR 55 24HR 55 h_nostr 24HR 55 MCG/ACT MCG/ACT il} MCG/ACT Accu-Chek Accu-Chek No Accu-Chek Claire Plus Claire Plus Claire Plus - - - Magnesium Magnesium No Magnesium Glycinate Glycinate Glycinate CoQ-10 CoQ-10 No CoQ-10 Lisinopril Lisinopril No 1{table QD Lisinopril 40 MG 40 MG t} 40 MG Montelukast Montelukast No 1{table QD Montelukas Sodium 10 Sodium 10 t} t Sodium MG MG 10 MG Zinc 50 MG Zinc 50 MG No 1{table QD Zinc 50 MG t} Align Align No Align Odette Odette No QD Odette Allergy 180 Allergy 180 Allergy MG MG 180 MG Euthyrox 50 Euthyrox 50 No QD Euthyrox MCG MCG 50 MCG Chromium Chromium No 1{capsu QD Chromium 200 [...] Accu-Chek Accu-Chek No BID Accu-Chek Claire Plus Claier Plus Claire Plus - - - Olopatadine [...] Immunizations Ordered Immunization Filled Immunization Date Status Commnilda silva Source Name Name FluAD FluAD 2021-07-30 Completed [facility] - 14:01:00 [facility] FluAD FluAD 2021-07-30 Completed [facility] - 14:01:00 [facility] FluAD FluAD 2021-07-30 Completed [facility] - 14:01:00 [facility] FluAD FluAD 2021-07-30 Completed [facility] - 14:01:00 [facility] FluAD FluAD 2021-07-30 Completed [facility] - 14:01:00 [facility] FluAD FluAD 2021-07-30 Completed [facility] - 14:01:00 [facility] FluAD FluAD 2021-07-30 Completed [facility] - 14:01:00 [facility] FluAD FluAD 2021-07-30 Completed [facility] - 14:01:00 [facility] FluAD FluAD 2021-07-30 Completed [facility] - 14:01:00 [facility] FluAD FluAD 2021-07-30 Completed [facility] - 14:01:00 [facility] FluAD FluAD 2021-07-30 Completed [facility] - 14:01:00 [facility] FluAD FluAD 2021-07-30 Completed [facility] - 14:01:00 [facility] FluAD FluAD 2021-07-30 Completed [facility] - 14:01:00 [facility] FluAD FluAD 2021-07-30 Completed [facility] - 14:01:00 [facility] FluAD FluAD 2021-07-30 Completed [facility] - 14:01:00 [facility] FluAD FluAD 2021-07-30 Completed [facility] - 14:01:00 [facility] FluAD FluAD 2021-07-30 Completed [facility] - 14:01:00 [facility] FluAD FluAD 2021-07-30 Completed [facility] - 14:01:00 [facility] FluAD FluAD 2021-07-30 Completed [facility] - 14:01:00 [facility] FluAD FluAD 2021-07-30 Completed [facility] - 14:01:00 [facility] FluAD FluAD 2021-07-30 Completed [facility] - 14:01:00 [facility] FluAD FluAD 2021-07-30 Completed [facility] - 14:01:00 [facility] FluAD FluAD 2021-07-30 Completed [facility] - 14:01:00 [facility] FluAD FluAD 2021-07-30 Completed [facility] - 14:01:00 [facility] FluAD FluAD 2021-07-30 Completed [facility] - 14:01:00 [facility] FluAD FluAD 2021-07-30 Completed [facility] - 14:01:00 [facility] FluAD FluAD 2021-07-30 Completed [facility] - 14:01:00 [facility] FluAD FluAD 2021-07-30 Completed [facility] - 14:01:00 [facility] FluAD FluAD 2021-07-30 Completed [facility] - 14:01:00 [facility] FluAD FluAD 2021-07-30 Completed [facility] - 14:01:00 [facility] FluAD FluAD 2021-07-30 Completed [facility] - 14:01:00 [facility] FluAD FluAD 2021-07-30 Completed [facility] - 14:01:00 [facility] FluAD FluAD 2021-07-30 Completed [facility] - 14:01:00 [facility] FluAD FluAD 2021-07-30 Completed [facility] - 14:01:00 [facility] FluAD FluAD 2021-07-30 Completed [facility] - 14:01:00 [facility] Influenza Hd 2020-09-03 Completed [facility] Colle ge 00:00:00 of Medicine FluAD FluAD 2020-08-27 Completed [facility] - 10:11:00 [facility] FluAD FluAD 2020-08-27 Completed [facility] - 10:11:00 [facility] FluAD FluAD 2020-08-27 Completed [facility] - 10:11:00 [facility] FluAD FluAD 2020-08-27 Completed [facility] - 10:11:00 [facility] FluAD FluAD 2020-08-27 Completed [facility] - 10:11:00 [facility] FluAD FluAD 2020-08-27 Completed [facility] - 10:11:00 [facility] FluAD FluAD 2020-08-27 Completed [facility] - 10:11:00 [facility] FluAD FluAD 2020-08-27 Completed [facility] - 10:11:00 [facility] FluAD FluAD 2020-08-27 Completed [facility] - 10:11:00 [facility] FluAD FluAD 2020-08-27 Completed [facility] - 10:11:00 [facility] FluAD FluAD 2020-08-27 Completed [facility] - 10:11:00 [facility] FluAD FluAD 2020-08-27 Completed [facility] - 10:11:00 [facility] FluAD FluAD 2020-08-27 Completed [facility] - 10:11:00 [facility] FluAD FluAD 2020-08-27 Completed [facility] - 10:11:00 [facility] FluAD FluAD 2020-08-27 Completed [facility] - 10:11:00 [facility] FluAD FluAD 2020-08-27 Completed [facility] - 10:11:00 [facility] FluAD FluAD 2020-08-27 Completed [facility] - 10:11:00 [facility] FluAD FluAD 2020-08-27 Completed [facility] - 10:11:00 [facility] FluAD FluAD 2020-08-27 Completed [facility] - 10:11:00 [facility] FluAD FluAD 2020-08-27 Completed [facility] - 10:11:00 [facility] FluAD FluAD 2020-08-27 Completed [facility] - 10:11:00 [facility] FluAD FluAD 2020-08-27 Completed [facility] - 10:11:00 [facility] FluAD FluAD 2020-08-27 Completed [facility] - 10:11:00 [facility] FluAD FluAD 2020-08-27 Completed [facility] - 10:11:00 [facility] FluAD FluAD 2020-08-27 Completed [facility] - 10:11:00 [facility] FluAD FluAD 2020-08-27 Completed [facility] - 10:11:00 [facility] FluAD FluAD 2020-08-27 Completed [facility] - 10:11:00 [facility] FluAD FluAD 2020-08-27 Completed [facility] - 10:11:00 [facility] FluAD FluAD 2020-08-27 Completed [facility] - 10:11:00 [facility] FluAD FluAD 2020-08-27 Completed [facility] - 10:11:00 [facility] FluAD FluAD 2020-08-27 Completed [facility] - 10:11:00 [facility] FluAD FluAD 2020-08-27 Completed [facility] - 10:11:00 [facility] FluAD FluAD 2020-08-27 Completed [facility] - 10:11:00 [facility] FluAD FluAD 2020-08-27 Completed [facility] - 10:11:00 [facility] FluAD FluAD 2020-08-27 Completed [facility] - 10:11:00 [facility] FluAD FluAD 2019-07-25 Completed [facility] - 12:27:00 [facility] FluAD FluAD 2019-07-25 Completed [facility] - 12:27:00 [facility] FluAD FluAD 2019-07-25 Completed [facility] - 12:27:00 [facility] FluAD FluAD 2019-07-25 Completed [facility] - 12:27:00 [facility] FluAD FluAD 2019-07-25 Completed [facility] - 12:27:00 [facility] FluAD FluAD 2019-07-25 Completed [facility] - 12:27:00 [facility] FluAD FluAD 2019-07-25 Completed [facility] - 12:27:00 [facility] [facility] FluAD 2019-07-25 [facility]pleted [facility] 12[facility]27:00 [facility] FluAD FluAD 2019-07-25 Completed [facility] - 12:27:00 [facility] FluAD FluAD 2019-07-25 Completed [facility] - 12:27:00 [facility] FluAD FluAD 2019-07-25 Completed [facility] - 12:27:00 [facility] FluAD FluAD 2019-07-25 Completed [facility] - 12:27:00 [facility] FluAD FluAD 2019-07-25 Completed [facility] - 12:27:00 [facility] FluAD FluAD 2019-07-25 Completed [facility] - 12:27:00 [facility] FluAD FluAD 2019-07-25 Completed [facility] - 12:27:00 [facility] FluAD FluAD 2019-07-25 Completed [facility] - 12:27:00 [facility] FluAD FluAD 2019-07-25 Completed [facility] - 12:27:00 [facility] FluAD FluAD 2019-07-25 Completed [facility] - 12:27:00 [facility] FluAD FluAD 2019-07-25 Completed [facility] - 12:27:00 [facility] FluAD FluAD 2019-07-25 Completed [facility] - 12:27:00 [facility] FluAD FluAD 2019-07-25 Completed [facility] - 12:27:00 [facility] FluAD FluAD 2019-07-25 Completed [facility] - 12:27:00 [facility] FluAD FluAD 2019-07-25 Completed [facility] - 12:27:00 [facility] FluAD FluAD 2019-07-25 Completed [facility] - 12:27:00 [facility] FluAD FluAD 2019-07-25 Completed [facility] - 12:27:00 [facility] FluAD FluAD 2019-07-25 Completed [facility] - 12:27:00 [facility] FluAD FluAD 2019-07-25 Completed [facility] - 12:27:00 [facility] FluAD FluAD 2019-07-25 Completed [facility] - 12:27:00 [facility] FluAD FluAD 2019-07-25 Completed [facility] - 12:27:00 [facility] FluAD FluAD 2019-07-25 Completed [facility] - 12:27:00 [facility] FluAD FluAD 2019-07-25 Completed [facility] - 12:27:00 [facility] FluAD FluAD 2019-07-25 Completed [facility] - 12:27:00 [facility] FluAD FluAD 2019-07-25 Completed [facility] - 12:27:00 [facility] FluAD FluAD 2019-07-25 Completed [facility] - 12:27:00 [facility] FluAD FluAD 2019-07-25 Completed [facility] - 12:27:00 [facility] FluAD FluAD 2019-07-25 Completed [facility] - 00:00:00 [facility] Pneumovax (PPSV23) Pneumovax (PPSV23) 2018-04-24 Completed [facility] - 10:31:00 [facility] Pneumovax (PPSV23) Pneumovax (PPSV23) 2018-04-24 Completed [facility] - 10:31:00 [facility] Pneumovax (PPSV23) Pneumovax (PPSV23) 2018-04-24 Completed [facility] - 10:31:00 [facility] Pneumovax (PPSV23) Pneumovax (PPSV23) 2018-04-24 Completed [facility] - 10:31:00 [facility] Pneumovax (PPSV23) Pneumovax (PPSV23) 2018-04-24 Completed [facility] - 10:31:00 [facility] Pneumovax (PPSV23) Pneumovax (PPSV23) 2018-04-24 Completed [facility] - 10:31:00 [facility] Pneumovax (PPSV23) Pneumovax (PPSV23) 2018-04-24 Completed [facility] - 10:31:00 [facility] Pneumovax (PPSV23) Pneumovax (PPSV23) 2018-04-24 Completed [facility] - 10:31:00 [facility] Pneumovax (PPSV23) Pneumovax (PPSV23) 2018-04-24 Completed [facility] - 10:31:00 [facility] Pneumovax (PPSV23) Pneumovax (PPSV23) 2018-04-24 Completed [facility] - 10:31:00 [facility] Pneumovax (PPSV23) Pneumovax (PPSV23) 2018-04-24 Completed [facility] - 10:31:00 [facility] Pneumovax (PPSV23) Pneumovax (PPSV23) 2018-04-24 Completed [facility] - 10:31:00 [facility] Pneumovax (PPSV23) Pneumovax (PPSV23) 2018-04-24 Completed [facility] - 10:31:00 [facility] Pneumovax (PPSV23) Pneumovax (PPSV23) 2018-04-24 Completed [facility] - 10:31:00 [facility] Pneumovax (PPSV23) Pneumovax (PPSV23) 2018-04-24 Completed [facility] - 10:31:00 [facility] Pneumovax (PPSV23) Pneumovax (PPSV23) 2018-04-24 Completed [facility] - 10:31:00 [facility] Pneumovax (PPSV23) Pneumovax (PPSV23) 2018-04-24 Completed [facility] - 10:31:00 [facility] Pneumovax (PPSV23) Pneumovax (PPSV23) 2018-04-24 Completed [facility] - 10:31:00 [facility] Pneumovax (PPSV23) Pneumovax (PPSV23) 2018-04-24 Completed [facility] - 10:31:00 [facility] Pneumovax (PPSV23) Pneumovax (PPSV23) 2018-04-24 Completed [facility] - 10:31:00 [facility] Pneumovax (PPSV23) Pneumovax (PPSV23) 2018-04-24 Completed [facility] - 10:31:00 [facility] Pneumovax (PPSV23) Pneumovax (PPSV23) 2018-04-24 Completed [facility] - 10:31:00 [facility] Pneumovax (PPSV23) Pneumovax (PPSV23) 2018-04-24 Completed [facility] - 10:31:00 [facility] Pneumovax (PPSV23) Pneumovax (PPSV23) 2018-04-24 Completed [facility] - 10:31:00 [facility] Pneumovax (PPSV23) Pneumovax (PPSV23) 2018-04-24 Completed [facility] - 10:31:00 [facility] Pneumovax (PPSV23) Pneumovax (PPSV23) 2018-04-24 Completed [facility] - 10:31:00 [facility] Pneumovax (PPSV23) Pneumovax (PPSV23) 2018-04-24 Completed [facility] - 10:31:00 [facility] Pneumovax (PPSV23) Pneumovax (PPSV23) 2018-04-24 Completed [facility] - 10:31:00 [facility] Pneumovax (PPSV23) Pneumovax (PPSV23) 2018-04-24 Completed [facility] - 10:31:00 [facility] Pneumovax (PPSV23) Pneumovax (PPSV23) 2018-04-24 Completed [facility] - 10:31:00 [facility] Pneumovax (PPSV23) Pneumovax (PPSV23) 2018-04-24 Completed [facility] - 10:31:00 [facility] Pneumovax (PPSV23) Pneumovax (PPSV23) 2018-04-24 Completed [facility] - 10:31:00 [facility] Pneumovax (PPSV23) Pneumovax (PPSV23) 2018-04-24 Completed [facility] - 10:31:00 [facility] Pneumovax (PPSV23) Pneumovax (PPSV23) 2018-04-24 Completed [facility] - 10:31:00 [facility] Pneumovax (PPSV23) Pneumovax (PPSV23) 2018-04-24 Completed [facility] - 10:31:00 [facility] Mimi Le 2018-01-17 Completed [facility] - (Triamcinolone) (Triamcinolone) 11:32:00 [facility] Mimi Le 2018-01-17 Completed [facility] - (Triamcinolone) (Triamcinolone) 11:32:00 [facility] Influenza 2015-09-10 Completed [facility] [place] [facility] Vital Signs Vital Name Observation Time Observation Value Comments Source Body weight 2022-11-25 18:22:[address] [facility] BMI 2022-11-25 18:22:00 25.70 kg/m2 [facility] Systolic blood 2022-11-25 18:22:00 170 mm[Hg] [facility] Medicine Diastolic blood 2022-11-25 18:22:00 81 mm[Hg] [facility] Medicine Heart rate 2022-11-25 18:22:00 64 /min [facility] Body temperature 2022-11-25 18:22:00 36.44 Latoya [facility] Respiratory rate 2022-11-25 18:22:00 18 /min [facility] Body height 2022-11-25 18:22:[address] [facility] height 2022-07-13 08:40:00 68 [in_i] [facility] weight 2022-07-13 08:40:00 166.7 [lb_av] [facility] temperature 2022-07-13 08:40:00 97.9 [degF] [facility] bmi 2022-07-13 08:40:00 25.34 kg/m2 [facility] oximetry 2022-07-13 08:40:00 97 % [facility] respiratory rate 2022-07-13 08:40:00 16 /min Comm on [facility] blood pressure 2022-07-13 08:40:00 127 mm[Hg] [facility] - systolic [facility] blood pressure 2022-07-13 08:40:00 60 mm[Hg] [facility] - diastolic [facility] height 2022-06-23 11:20:00 68 [in_i] [facility] weight 2022-06-23 11:20:00 171.1 [lb_av] [facility] - [facility] temperature 2022-06-23 11:20:00 97.7 [degF] Common [facility] bmi 2022-06-23 11:20:00 26.01 kg/m2 [facility] oximetry 2022-06-23 11:20:00 97 % Common [facility] respiratory rate 2022-06-23 11:20:00 16 /min Comm on [facility] blood pressure 2022-06-23 11:20:00 139 mm[Hg] [facility] - systolic [facility] blood pressure 2022-06-23 11:20:00 69 mm[Hg] [facility] - diastolic [facility] height 2022-06-02 08:20:00 68 [in_i] Common [facility] weight 2022-06-02 08:20:00 163 [lb_av] [facility] S pirit [facility] bmi 2022-06-02 08:20:00 24.78 kg/m2 [facility] S [facility] height 2022-04-01 14:00:00 68 [in_i] [facility] weight 2022-04-01 14:00:00 161 [lb_av] [facility] bmi 2022-04-01 14:00:00 24.48 kg/m2 [facility] blood pressure 2022-04-01 14:00:00 126 mm[Hg] [facility] - systolic [facility] blood pressure 2022-04-01 14:00:00 78 mm[Hg] [facility] - diastolic [facility] height 2022-03-24 13:30:00 68 [in_i] [facility] weight 2022-03-24 13:30:00 160 [lb_av] Common [facility] bmi 2022-03-24 13:30:00 24.33 kg/m2 [facility] - [facility] height 2022-03-02 16:40:00 68 [in_i] [facility] - [facility] weight 2022-03-02 16:40:00 170.8 [lb_av] Common [facility] temperature 2022-03-02 16:40:00 97.6 [degF] Common S [facility] bmi 2022-03-02 16:40:00 25.97 kg/m2 [facility] oximetry 2022-03-02 16:40:00 96 % [facility] respiratory rate 2022-03-02 16:40:00 16 /min [facility] on [facility] blood pressure 2022-03-02 16:40:00 138 mm[Hg] [facility] - systolic [facility] blood pressure 2022-03-02 16:40:00 58 mm[Hg] Common [facility] diastolic [facility] height 2022-02-10 08:40:00 68 [in_i] Common [facility] weight 2022-02-10 08:40:00 160 [lb_av] [facility] bmi 2022-02-10 08:40:00 24.33 kg/m2 [facility] height 2021-10-29 08:40:00 68 [in_i] [facility] weight 2021-10-29 08:40:00 166 [facility] temperature 2021-10-29 08:40:00 97.2 [degF] [facility] bmi 2021-10-29 08:40:00 25.24 kg/m2 [facility] oximetry 2021-10-29 08:40:00 98 % [facility] blood pressure 2021-10-29 08:40:00 132 mm[Hg] [facility] - systolic [facility] blood pressure 2021-10-29 08:40:00 63 mm[Hg] [facility] - diastolic [facility] height 2021-10-02 08:00:00 68 [in_i] Common [facility] weight 2021-10-02 08:00:00 156 [lb_av] [facility] bmi 2021-10-02 08:00:00 23.72 kg/m2 [facility] - [facility] height 2021-07-30 13:00:00 68 [in_i] Common [facility] weight 2021-07-30 13:00:00 175.4 [lb_av] [facility] - [facility] temperature 2021-07-30 13:00:00 97.5 [degF] [facility] bmi 2021-07-30 13:00:00 26.67 kg/m2 [facility] oximetry 2021-07-30 13:00:00 96 % [facility] respiratory rate 2021-07-30 13:00:00 16 /min [facility] blood pressure 2021-07-30 13:00:00 132 mm[Hg] [facility] - systolic [facility] blood pressure 2021-07-30 13:00:00 74 mm[Hg] [facility] - diastolic [facility] Systolic blood 2019-11-21 21:50:00 136 mm[Hg] [facility] pressure Medicine Diastolic blood 2019-11-21 21:50:00 76 mm[Hg] [facility] pressure Medicine Heart rate 2019-11-21 21:50:00 51 /min [facility] Body height 2019-11-21 21:50:[address] [facility] Body weight 2019-11-21 21:50:[address] [facility] BMI 2019-11-21 21:50:00 24.33 kg/m2 [facility] Systolic blood 2019-11-21 21:50:00 136 mm[Hg] [facility] pressure Medicine Diastolic blood 2019-11-21 21:50:00 76 mm[Hg] [facility] pressure Medicine Heart rate 2019-11-21 21:50:00 51 /min [facility] Body height 2019-11-21 21:50:[address] [facility] Body weight 2019-11-21 21:50:[address] [facility] BMI 2019-11-21 21:50:00 24.33 kg/m2 [facility] Procedures Procedure Date / Time Performed Performing Clinician Sourc e CBC W/AUTO DIFF WITH 2022-11-25 19:17:00 Nba Engle [facility] PLATELETS [facility] CYSTOSCOPY 2022-07-28 10:00:00 [facility] BLADDER WASHINGS 2022-07-28 09:40:10 [facility] Nikita ege of CYTOLOGY X2 Medicine POCT URINALYSIS 2022-07-28 00:00:00 [facility] DIPSTICK Medicine CULTURE, 2019-11-22 14:56:00 Leah Le [facility] ege of URINE/SENSITIVITY ON Medicine ALL Plan of Care Planned Activity Planned Date Details Comments Source Future Scheduled 2022-11-25 COVID-19 Vaccine (#1) [facility] Test 15:21:04 [code = COVID-19 Medicine Vaccine (#1)] Future Scheduled 2022-11-25 Pneumococcal 65+ (1 - Ba [facility] Test 15:21:04 PCV) [code = Medicine Pneumococcal 65+ (1 - PCV)] Future Scheduled 2022-11-25 TETANUS SHOT (ADULT) [facility] 15:21:04 [code = TETANUS SHOT Medicin e (ADULT)] Future Scheduled 2022-11-25 Diabetic foot [facility] Col lege of Test 15:21:04 examination Medicine (regime/therapy) [code = 311209952] Future Scheduled 2022-11-25 Annual Diabetic [facility] C [facility]lege of Test 15:21:04 Retinopathy Screening Medici ne [code = Annual Diabetic Retinopathy Screening] Future Scheduled 2022-11-25 BMI Follow Up Plan [facility] 15:21:04 [code = BMI Follow Up Medici ne Plan] Future Scheduled 2022-11-25 Medicare Awv (Initial) B [facility] Test 15:21:04 [code = Medicare Awv Medicin e (Initial)] Future Scheduled 2022-11-25 FLU VACCINE > 6 MONTHS B [facility] of Test 15:21:04 [code = FLU VACCINE > Medici ne 6 MONTHS] Future Scheduled 2022-11-25 Fall Screen [code = [facility] Test 15:21:04 Fall Screen] Medicine Future Scheduled 2022-11-25 FOLATE [code = 2284-8] B [facility] Test 12:59:08 Medicine Future Scheduled 2022-11-25 VITAMIN B12 [code = [facility] Test 12:59:07 2132-9] Medicine Future Scheduled 2022-11-25 IRON+TIBC+%SAT [code = B [facility] Test 12:59:07 NOCPT] Medicine Future Scheduled 2022-11-25 FERRITIN [code = [facility] 12:59:07 00381-8] Medicine Future Scheduled 2022-11-[address] [facility] Test 00:00:00 (12+) [code = [facility] DEPRESSION SCREENING (12+)] Future Scheduled 2022-11-14 [...] Medical [facility]ia ter VACCINE (#1)] Future Scheduled 1941-04-07 COVID-19 VACCINE (#1) [facility] Test 00:00:00 [code = COVID-[address] VACCINE (#1)] Future Scheduled TETANUS SHOT (ADULT) [place] [facility] [employer] [facility] Test [code = TETANUS SHOT Medicin e (ADULT)] Future Scheduled FALL SCREEN [code = [facility] of Test FALL SCREEN] Medicine Future Scheduled PNEUMOVAX >=65 [facility] llege of Test (PPSV23) [code = Medicine PNEUMOVAX >=65 (PPSV23)] Future Scheduled PREVNAR >= 65 (PCV13) Ba [facility] of Test [code = PREVNAR >= 65 Medici ne (PCV13)] Future Scheduled MEDICARE AWV (Initial) [facility] Test [code = MEDICARE AWV Medicin e (Initial)] Future Scheduled FLU VACCINE > 6 MON[facility] [code = FLU VACCINE > Medici ne 6 MONTHS] Encounters Start End Encounter Admission Attending Care Care Encounter Source Date/Time Date/Time Type Type Clinicians Facility Department ID 2022-06-23 Outpatient Mccoy, Na STLMLC STLMLC [id number] 2 Common 10:50:01 [facility] 2022-05-31 Outpatient Mccoy, Na STLMLC STLMLC [id number] 2 Common 08:13:01 [facility] 2022-04-01 Outpatient Mccoy, Na STLMLC STLMLC [id number] 2 Common 13:48:05 [facility] 2022-03-02 Outpatient Mccoy, Na STLMLC STLMLC [id number] 2 Common 16:19:00 [facility] 2022-02-08 Outpatient Mccoy, Na STLMLC STLMLC [id number] 2 Common 08:34:01 [facility] 2021-12-10 Outpatient Mccoy, Na STLMLC STLMLC [id number] 2 Common 15:36:00 [facility] 2021-12-09 Outpatient Mccoy, Na STLMLC STLMLC [id number] 2 Common 14:24:20 [facility] 2021-12-09 Outpatient Mccoy, Na STLMLC STLMLC [id number] 2 Common 14:15:28 [facility] 2021-12-09 Outpatient Mccoy, Na STLMLC STLMLC [id number] 2 Common 13:14:42 [id number] [facility] 2021-12-09 Outpatient Mccoy, Na STLMLC STLMLC [id number] 2 Common 13:05:10 [id number] [facility] 2021-12-09 Outpatient Mccoy, Na STLMLC STLMLC [id number] 2 Common 12:49:56 [id number] [facility] 2021-12-09 Outpatient Mccoy, Na STLMLC STLMLC [id number] 2 Common 12:36:00 [id number] [facility] 2021-12-09 Outpatient Mccoy, Na STLMLC STLMLC [id number] 2 Common 12:33:13 [id number] [facility] 2021-12-09 Outpatient Mccoy, Na STLMLC STLMLC [id number] 2 Common 12:32:16 [id number] [facility] 2021-12-09 Outpatient Mccoy, Na STLMLC STLMLC [id number] 2 Common 12:11:40 [id number] [facility] 2021-12-09 Outpatient Mccoy, Na STLMLC STLMLC [id number] 2 Common 12:07:56 [id number] [facility] 2021-12-09 Outpatient Mccoy, Na STLMLC STLMLC [id number] 2 Common 11:43:48 [id number] [facility] 2021-12-09 Outpatient Mccoy, Na STLMLC STLMLC [id number] 2 Common 11:39:42 [id number] [facility] 2023-11-24 2023-11-24 Outpatient DONI ENGLE [id number] [facility] 00:00:00 00:00:00 NBA fraga of Medicin e 2023-02-02 2023-02-02 Outpatient DONI LE [id number] [facility] 00:00:00 00:00:00 LEAH urrutia of Medicin e 2022-12-03 2022-12-03 (TEL) STLMLC STLMLC [id number] Co mmon 00:00:00 00:00:00 [facility] 2022-11-30 2022-11-30 (TEL) STLMLC STLMLC [id number] Co mmon 00:00:00 00:00:00 [facility] 2022-11-25 2022-11-25 Office [facility] [id number] [facility] 13:00:00 14:58:48 Visit Nba WaldropNair [id number] Co llege [id number] of [id number] [facility] christopher 506 e 2022-10-29 2022-10-29 (TEL) STLMLC STLMLC [id number] Co mmon 00:00:00 00:00:00 [facility] 2022-10-22 2022-10-22 (TEL) STLMLC STLMLC [id number] Co mmon 00:00:00 00:00:00 [facility] 2022 2022 (TEL) STLMLC STLMLC [id number] Co mmon 00:00:00 00:00:00 [facility] 2022-10-06 2022-10-06 (TEL) STLMLC STLMLC [id number] Co mmon 00:00:00 00:00:00 [facility] 2022-10-06 2022-10-06 OFFICE STLMLC STLMLC [id number] Co mmon 00:00:00 00:00:00 VISIT [facility] [address] [facility] 2022-10-05 2022-10-05 (TEL) STLMLC STLMLC [id number] Co mmon 00:00:00 00:00:00 [facility] 2022-09-14 2022-09-14 (TEL) STLMLC STLMLC [id number] Co mmon 00:00:00 00:00:00 [facility] 2022-07-29 2022-07-29 (TEL) STLMLC STLMLC [id number] Co mmon 00:00:00 00:00:00 [facility] 2022-07-28 2022-07-28 Outpatient DONI [facility] [id number] [facility] 09:05:37 16:32:46 LEAH Nikita engel Medicin e 2022-07-16 2022-07-16 (TEL) STLMLC STLMLC [id number] Co mmon 00:00:00 00:00:00 [facility] 2022-07-14 2022-07-14 (TEL) STLMLC STLMLC [id number] Co mmon 00:00:00 00:00:00 [facility] 2022-07-13 2022-07-13 OFFICE STLMLC STLMLC [id number] Co mmon 00:00:00 00:00:00 VISIT Psychiatric PT - CHI LEVEL [address] [facility] 2022-06-29 2022-06-29 (TEL) STLMLC STLMLC [id number] Co mmon 00:00:00 00:00:00 [facility] 2022-06-23 2022-06-23 OFFICE STLMLC STLMLC [id number] Co mmon 00:00:00 00:00:00 VISIT EST Spir it PT LEVEL 3 [facility] 2022-06-22 2022-06-22 (TEL) STLMLC STLMLC [id number] Co mmon 00:00:00 00:00:00 [facility] 2022-06-02 2022-06-02 (TEL) STLMLC STLMLC [id number] Co mmon 00:00:00 00:00:00 [facility] 2022-06-02 2022-06-02 OFFICE STLMLC STLMLC [id number] Co mmon 00:00:00 00:00:00 VISIT Psychiatric PT - CHI LEVEL [address] [facility] 2022-04-02 2022-04-02 (TEL) STLMLC STLMLC [id number] Co mmon 00:00:00 00:00:00 [facility] 2022-04-01 2022-04-01 OFFICE STLMLC STLMLC [id number] Co mmon 00:00:00 00:00:00 VISIT NEW Spir it PT LEVEL 4 - [facility] 2022-03-24 2022-03-24 OFFICE STLMLC STLMLC [id number] Co mmon 00:00:00 00:00:00 VISIT EST Spir it PT LEVEL 3 - [facility] 2022-03-19 2022-03-19 (TEL) STLMLC STLMLC [id number] Co mmon 00:00:00 00:00:00 [facility] 2022-03-12 2022-03-12 (TEL) STLMLC STLMLC [id number] Co mmon 00:00:00 00:00:00 [facility] 2022-03-08 2022-03-08 (TEL) STLMLC STLMLC [id number] Co mmon 00:00:00 00:00:00 [facility] 2022-03-04 2022-03-04 (TEL) STLMLC STLMLC [id number] Co mmon 00:00:00 00:00:00 [facility] 2022-03-02 2022-03-02 OFFICE STLMLC STLMLC [id number] Co mmon 00:00:00 00:00:00 VISIT [facility] ESTAB PT - CHI LEVEL [address] [facility] 2022-02-10 2022-02-10 (TEL) STLMLC STLMLC [id number] Co mmon 00:00:00 00:00:00 [facility] 2022-02-10 2022-02-10 OFFICE STLMLC STLMLC [id number] Co mmon 00:00:00 00:00:00 VISIT Psychiatric PT - CHI LEVEL [address] [facility] 2022-01-27 2022-01-27 Outpatient [facility] [id number] [facility] 08:30:50 11:41:46 Margo fraga of Medicin e 2022-01-27 2022-01-27 Outpatient DONI [facility] [id number] [facility] 08:31:18 10:42:49 LEAH fritze of Medicin e 2022-01-14 2022-01-14 (TEL) STLMLC STLMLC [id number] Co mmon 00:00:00 00:00:00 [facility] 2021-10-29 2021-10-29 OFFICE STLMLC STLMLC [id number] Co mmon 00:00:00 00:00:00 VISIT Psychiatric PT - CHI LEVEL [address] [facility] 2021-10-21 2021-10-21 Outpatient [facility] [id number] [facility] 09:21:49 10:40:52 LEAH [facility] 2021-10-21 2021-10-21 (TEL) STLMLC STLMLC [id number] Co mmon 00:00:00 00:00:00 [facility] 2021-10-02 2021-10-02 OFFICE STLMLC STLMLC [id number] Co mmon 00:00:00 00:00:00 VISIT EST Spir it PT LEVEL 3 [facility] 2021-10-01 2021-10-01 (TEL) STLMLC STLMLC [id number] Co mmon 00:00:00 00:00:00 [facility] 2021-08-19 2021-08-19 (TEL) STLMLC STLMLC [id number] Co mmon 00:00:00 00:00:00 [facility] 2021-07-30 2021-07-30 OFFICE STLMLC STLMLC [id number] Co mmon 00:00:00 00:00:00 VISIT Psychiatric PT - CHI LEVEL [address] [facility] 2021-07-13 2021-07-13 Outpatient STLMLC STLMLC [id number] Common 00:00:00 00:00:00 [facility] 2021-07-08 2021-07-08 Outpatient [facility] [id number] [facility] 10:18:53 11:40:29 LEAH Nikita ege [facility] Medicin e 2021-07-06 2021-07-06 Outpatient STLMLC STLMLC [id number] Common 00:00:00 00:00:00 [facility] 2021-07-01 2021-07-01 Outpatient STLMLC STLMLC [id number] Common 00:00:00 00:00:00 [facility] 2021-06-01 2021-06-01 Outpatient STLMLC STLMLC [id number] Common 00:00:00 00:00:00 [facility] 2021-04-29 2021-04-29 Outpatient STLMLC STLMLC [id number] Common 00:00:00 00:00:00 [facility] 2021-03-10 2021-03-10 Outpatient STLMLC STLMLC [id number] Common 00:00:00 00:00:00 [facility] 2021-03-05 2021-03-05 Outpatient STLMLC STLMLC [id number] Common 00:00:00 00:00:00 [facility] 2021-02-17 2021-02-17 Outpatient STLMLC STLMLC [id number] Common 00:00:00 00:00:00 [facility] 2021-02-16 2021-02-16 Outpatient STLMLC STLMLC [id number] Common 00:00:00 00:00:00 [facility] 2021-02-12 2021-02-12 Outpatient STLMLC STLMLC [id number] Common 00:00:00 00:00:00 [facility] 2021-02-11 2021-02-11 Outpatient STLMLC STLMLC [id number] Common 00:00:00 00:00:00 [facility] 2021-01-21 2021-01-21 Outpatient STLMLC STLMLC [id number] Common 00:00:00 00:00:00 [facility] 2021-01-02 2021-01-02 Outpatient STLMLC STLMLC [id number] Common 00:00:00 00:00:00 [facility] 2020-10-24 2020-10-24 Outpatient STLMLC STLMLC [id number] Common 00:00:00 00:00:00 [facility] 2020-10-07 2020-10-07 Outpatient STLMLC STLMLC [id number] Common 00:00:00 00:00:00 [facility] 2020-10-07 2020-10-07 Outpatient STLMLC STLMLC [id number] Common 00:00:00 00:00:00 [facility] 2020-10-07 2020-10-07 Outpatient STLMLC STLMLC [id number] Common 00:00:00 00:00:00 [facility] 2020-08-27 2020-08-27 Outpatient STLMLC STLMLC [id number] Common 00:00:00 00:00:00 [facility] 2020-07-23 2020-07-23 [facility] [id number] Common 08:40:00 08:40:[address] [facility] 2020-07-22 2020-07-22 [facility] [id number] Common 17:01:00 17:01:[address] [facility] 2020-07-07 2020-07-07 [facility] [id number] Common 16:22:00 16:22:[address] [facility] 2020-07-04 2020-07-04 [facility] [id number] Common 11:20:00 11:20:[address] [facility] 2020-07-04 2020-07-04 [facility] [id number] Common 08:10:00 08:10:[address] [facility] 2020-04-22 2020-04-22 [facility] [id number] Common 13:20:00 13:20:[address] [facility] 2019-11-21 2019-11-21 Office ODNI Le [id number] 14:51:13 16:43:49 Visit Leah AMBULATOR [id number] Y [id number] 2019-11-21 2019-11-21 Office DONI Le [id number] [facility] 14:51:13 16:43:49 Visit Leah AMBULATOR [id number] College Y [id number] [facility] 300 e 2019-10-23 2019-10-23 [facility] [id number] Common 13:20:00 13:20:[address] [facility] 2019-08-02 2019-08-02 [facility] [id number] Common 10:02:00 10:02:[address] [facility] 2019-07-25 2019-07-25 [facility] [id number] Common 09:40:00 09:40:[address] [facility] 2019-05-22 2019-05-22 [facility] [id number] Common 09:20:00 09:20:[address] [facility] 2019-04-24 2019-04-24 [facility] [id number] Common 09:40:00 09:40:[address] [facility] 2019-02-01 2019-02-01 [facility] [id number] Common 09:30:00 09:30:[address] [facility] 2019-01-16 2019-01-16 [facility] [id number] Common 09:25:00 09:25:[address] [facility] 2018-12-18 2018-12-18 [facility] [id number] Common 13:34:00 13:34:[address] [facility] 2018-12-18 2018-12-18 [facility] [id number] Common 09:00:00 09:00:[address] [facility] 2018-12-15 2018-12-15 [facility] [id number] Common 10:47:00 10:47:[address] [facility] 2018-10-24 2018-10-24 Outpatient [facility] [id number] Common 08:30:00 08:30:[address] [facility] Results Test Description Test Time Test Comments Results Result Comments Source CBC W/AUTO DIFF WITH PLATELETS 2022-11-25 19:52:16 Test Item Value Reference Range Interpretation Comme nts WHITE BLOOD CELL COUNT (test See_Comment [Automated message] The system code = 34042-7) which genera howard this result transmitted ref erence range: 3.5 - 11.0 K/UL . The reference range was not u sed to interpret this result as normal/abnormal. RED BLOOD CELL COUNT (test See_Comment L [Automated message] The system code = 81523-9) which genera howard this result transmitted ref [...] (test code = 35.3 % 40.0-51.0 L 80947-8) MEAN CORPUSCULAR VOLUME (test 92.2 fL 80.0-99.0 code = 36160-5) MEAN CORPUSCULAR HEMOGLOBIN 31.1 PG 25.0-33.0 (test code = 15967-5) MEAN CORPUSCULAR HEMOGLOBIN See_Comment [Automated message] The system CONC (test code = 87324-2) w hich generated this result transmitted ref erence range: 31.0 - 36.0 G/D L. The reference range was not u sed to interpret this result as normal/abnormal. RED CELL DISTRIBUTION WIDTH 12.9 % 11.5-15.0 (test code = 55734-3) NEUTROPHILS % (test code = 64 % 29813-5) LYMPHOCYTES % (test code = 23 % 21561-0) MONOCYTES % (test code = 11 % 50103-6) EOSINOPHILS % (test code = 1 % 17089-4) BASOPHILS % (test code = 0 % 20935-5) PLATELET COUNT (test code = See_Comment TESTING PERFORMED AT [facility] 53365-1) PATH[facility] [address], [address] [place], [place] [address] CLIA NO. [id number] [Aut omated message] The system whic h generated this result transmit howard reference range: 130 - 40 0 K/UL. The reference range was not used to interpret this result as normal/abnormal . NEUTROPHILS ABSOLUTE COUNT See_Comment [Automated message] The system (test code = 50102-0) which generated this result transmitted ref erence range: 1.50 - 7.50 K/U L. The reference range was not u sed to interpret this result as normal/abnormal. LYMPHOCYTES ABSOLUTE COUNT See_Comment L [Automated message] The system (test code = 59654-2) which generated this result transmitted ref erence range: 1.00 - 4.00 K/U L. The reference range was not u sed to interpret this result as normal/abnormal. MONOCYTES ABSOLUTE COUNT See_Comment [A utomated message] The system (test code = 00182-8) which generated this result transmitted ref erence range: 0.20 - 1.00 K/U L. The reference range was not u sed to interpret this result as normal/abnormal. BASOPHILS ABSOLUTE COUNT See_Comment U nless Otherwise Indicated, (test code = 09225-7) All Te sting Performed At: [facility], [address] [place] [address] 4 Woodworking Machine Setter: Elliott Singh [id number] Cap Accreditation [place] o. [id number] [Automated mess age] The system which generated this result transmitted ref erence range: 0.00 - 0.20 K/U L. The reference range was not u sed to interpret this result as normal/abnormal. CORA (test code = CORA) PT FASTING Lab Interpretation (test code Abnormal = 65480-6) [facility] ON [id number] 12:08:02 Test Item Value Reference Range Interpretation Comments CULTURE, SPECIMEN NUMBER: CULTURE, URINE/SENSITIV [id number] URINE/SENSITI VITY ON ITY ON ALL ALL SPECIMEN NU MBER: (test code = 910284180 SPECI MEN 2236) COMMENT: URINE SOURCE: URINE REPORT ST ATUS: FINAL FINAL REP ORT: 11/24/2019 NO G ROWTH AFTER 36 HOURS INCUBATION Unl ess Otherwise Indic ated, All Testing Per formed At: [facility], [address] [facility], [place] [address] Laborator y Director: Wang Lacy M.D. IA Number [id number] [place] o. [id number] [facility] [id number] 17:32:00Surgical Pathology Report Case: [id number] Authorizing Provider: Leah Le MD Collected: 10/30/2019 1037 Ordering Location: [facility] PERIOPERATIVE Received: 10/31/2019 0846 SERVICES Pathologist: [...] BY TUMOR Signing Pathologist Direct Phone Line: [phone] signed by Yan Hays MD on 11/02/2019 at 5:32 PMThe invasive component represents no more than 5% of the total tumor mass. [address]01 X 2Preoperative and postoperative diagnoses: bladder tumorA. [...] entirely submitted in cassettes B1-AB. JG/ewPerformed. POCT-GLUCOSE [id number] 06:24:00 Test Item Value Reference Range Interpretation Comments POC-GLUCOSE METER 76 mg/dL 70-110 : TESTED A T [facility] ([facility]) (test code = [place], 1538) [address]: Kier Operator/Techni jordana ID = [id number] for SEBASTIAN VALLE PH
[2022-12-13 23:49] LABS: Urine Blood Trace-intact (Negative); Urine Glucose Negative (Negative); Urine Protein Trace (Negative); Urine Specific Gravity 1.015 (1.005-1.030); Urine pH 6.5 (5.0-7.0)
--- NOTE | 2022-12-14 00:03 | ER ---
Nurse's Notes [facility] Name: Noah Whyte Age: 82 yrs Sex: Male : 1940 Arrival Date: 12/13/2022 Time: 21:55 Bed 13 Private MD: Diagnosis: Retention of urine, unspecified Presentation: 12/13 22:24 Chief complaint: Patient states: "I had back surgery this morning and I haven't peed as6 since" pt reports not urinating since 0430 AM today. Coronavirus screen: At this time, the client does not indicate any symptoms associated with coronavirus-19. Ebola Screen: No symptoms or risks identified at this time. Initial Sepsis Screen: Does the patient meet any 2 criteria? No. Patient's initial sepsis screen is negative. Does the patient have a suspected source of infection? No. Patient's initial sepsis screen is negative. Risk Assessment: Do you want to hurt yourself or someone else? Patient reports no desire to harm self or others. Onset of symptoms was December 13, 2022. 22:24 Acuity: JAIMIE 3 as6 22:24 Method Of Arrival: Ambulatory as6 Historical: - Allergies: 22:50 Clarithromycin; as6 22:50 Levofloxacin; as6 - PMHx: 22:50 Anemia; Bladder Tumor - Cancer; Hypothyroidism; Hypertension; High Cholesterol; GERD; as6 - PSHx: 22:50 cataract repair; TURP; back; as6 - Immunization history:: Adult Immunizations up to date, Client reports receiving the 2nd dose of the Covid vaccine, moderna. - Social history:: Smoking status: Patient denies any tobacco usage or history of. Screenin:51 [facility] ED Fall Risk Assessment (Adult) Score/Fall Risk Level 0 - 2 = Low Risk. Abuse as6 screen: Denies threats or abuse. Denies injuries from another. Nutritional screening: No deficits noted. Tuberculosis screening: No symptoms or risk factors identified. Assessment: 22:57 General: Appears in no apparent distress. Behavior is calm, cooperative. Pain: Denies as6 pain. Neuro: Level of Consciousness is awake, alert, obeys commands, Oriented to person, place, time, situation. Cardiovascular: Capillary refill < 3 seconds Patient's skin is warm and dry. Respiratory: Respiratory effort is even, unlabored, Respiratory pattern is regular, symmetrical. : Reports inability to void, since 0430 AM. 12/14 00:16 Reassessment: Patient appears in no apparent distress at this time. Patient is alert, aa9 oriented x 3, equal unlabored respirations, skin warm/dry/pink. Vital Signs: 12/13 22:24 BP 144 / 65; Pulse 71; Resp 18 S; Temp 98.7(O); Pulse Ox 96% on R/A; Weight 71.67 kg as6 (R); Height 5 ft. 8 in. (172.72 cm) (R); Pain 0/10; 22:24 Body Mass Index 24.02 (71.67 kg, 172.72 cm) as6 ED Course: 21:55 Patient arrived in ED. ja2 22:19 Wally Goel PA is PHCP. cp 22:19 Wally Chaves MD is Attending Physician. cp 22:24 Hugo Emerson, KORI is Primary Nurse. as6 22:29 Triage completed. as6 22:29 Arm band placed on. as6 22:51 Placed in gown. Bed in low position. Call light in reach. Side rails up X 1. Adult w/ as6 patient. 22:54 Kulkarni cath inserted, using sterile technique, 16 Fr., by al, balloon inflated, to as6 gravity drainage. 23:48 Urine Microscopic Only Sent. aa9 12/14 00:00 Nazario Suero MD is Referral Physician. cp 00:15 No provider procedures requiring assistance completed. Patient did not have IV access aa9 during this emergency room visit. Administered Medications: No medications were administered Medication: 12/13 22:51 VIS not applicable for this client. as6 Outcome: 12/14 00:01 Discharge ordered by . cp 00:15 Discharged to home ambulatory, with family. aa9 00:15 Condition: stable 00:15 Discharge instructions given to patient, family, Instructed on discharge instructions, follow up and referral plans. Demonstrated understanding of instructions, follow-up care. 00:19 Patient left the ED. aa9 Signatures: Wally Goel PA PA cp Alexander, Jessica ja2 Hugo Emerson, KORI RN as6 Magali France RN RN aa9
--- NOTE | 2022-12-14 00:03 | EDPHYS ---
Physician Documentation [facility] Name: Noah Whyte Age: 82 yrs Sex: Male : 1940 Arrival Date: 12/13/2022 Time: 21:55 Bed 13 Private MD: ED Physician Wally Chaves HPI: 12/13 22:37 This 82 yrs old Male presents to ER via Ambulatory with complaints of Urinary Problem. cp 22:37 The patient presents with urinary symptoms, retention. cp 22:37 Onset: The symptoms/episode began/occurred today. Associated signs and symptoms: cp Pertinent negatives: abdominal pain, constipation, diarrhea, fever, hematuria, vomiting. Severity of symptoms: in the emergency department the symptoms are unchanged. Patient reports having low back surgery this morning by DR Yan henry at [facility]. Patient reports inability to urinate since discharge to home. Historical: - Allergies: 22:50 Clarithromycin; as6 22:50 Levofloxacin; as6 - PMHx: 22:50 Anemia; Bladder Tumor - Cancer; Hypothyroidism; Hypertension; High Cholesterol; GERD; as6 - PSHx: 22:50 cataract repair; TURP; back; as6 - Immunization history:: Adult Immunizations up to date, Client reports receiving the 2nd dose of the Covid vaccine, moderna. - Social history:: Smoking status: Patient denies any tobacco usage or history of. ROS: 22:40 Constitutional: Negative for body aches, chills, fever, poor PO intake. cp 22:40 Eyes: Negative for injury, pain, redness, and discharge. cp 22:40 Cardiovascular: Negative for chest pain, edema, palpitations. 22:40 Respiratory: Negative for cough, shortness of breath, wheezing. 22:40 Abdomen/GI: Negative for abdominal pain, vomiting, diarrhea, constipation. 22:40 : Positive for difficulty urinating, Negative for flank pain, testicular pain 22:40 Skin: Negative for rash. 22:40 Neuro: Negative for altered mental status, dizziness, headache, syncope, weakness. 22:40 All other systems are negative. Exam: 22:45 Constitutional: The patient appears in no acute distress, alert, non-diaphoretic, cp non-toxic, well developed, well nourished. 22:45 Head/Face: Normocephalic, atraumatic. cp 22:45 Eyes: Periorbital structures: appear normal, Conjunctiva: normal, no exudate, no injection, Sclera: no appreciated abnormality, Lids and lashes: appear normal, bilaterally. 22:45 ENT: External ear(s): are unremarkable, Nose: is normal, Mouth: Lips: moist, Oral mucosa: moist, Posterior pharynx: is normal, airway is patent. 22:45 Chest/axilla: Inspection: normal. 22:45 Cardiovascular: Rate: normal. 22:45 Respiratory: the patient does not display signs of respiratory distress, Respirations: normal, no use of accessory muscles, no retractions, labored breathing, is not present, Breath sounds: are clear throughout, no decreased breath sounds, no stridor, no wheezing. 22:45 Abdomen/GI: Inspection: distension, that is mild, in the lower abdomen, Bowel sounds: active, all quadrants, Palpation: soft, in all quadrants, mild abdominal tenderness, in the lower abdomen. 22:45 Neuro: Orientation: to person, place \T\ time. Mentation: is normal. Vital Signs: 22:24 BP 144 / 65; Pulse 71; Resp 18 S; Temp 98.7(O); Pulse Ox 96% on R/A; Weight 71.67 kg as6 (R); Height 5 ft. 8 in. (172.72 cm) (R); Pain 0/10; 22:24 Body Mass Index 24.02 (71.67 kg, 172.72 cm) as6 MDM: 22:19 Patient medically screened. cp 23:00 Differential diagnosis: UTI, urinary retention, prostatitis, urethritis. cp 12/14 00:00 Data reviewed: vital signs, nurses notes, lab test result(s). cp 00:00 Consideration of Admission/Observation Escalation of care including cp admission/observation considered. Test considered but Not performed: CT: abdomen/pelvis. Counseling: I had a detailed discussion with the patient and/or guardian regarding: the historical points, exam findings, and any diagnostic results supporting the discharge/admit diagnosis, lab results, the need for outpatient follow up, for definitive care, a urologist, to return to the emergency department if symptoms worsen or persist or if there are any questions or concerns that arise at home. Response to treatment: the patient's symptoms have markedly improved after treatment, and as a result, I will discharge patient. 12/13 23:19 Order name: Urine Microscopic Only; Complete Time: 00:14 cp 12/14 00:14 Interpretation: Normal except: HYAL 5-10. cp 12/13 23:49 Order name: Urine Dipstick-Ancillary; Complete Time: 00:00 EDMS 12/14 00:00 Interpretation: Normal except: UBLD Trace-intact; UPROT Trace. cp 12/13 22:36 Order name: Kulkarni Leg Bag; Complete Time: 23:48 cp 12/13 22:36 Order name: Kulkarni; Complete Time: 22:54 cp 12/13 23:19 Order name: Urine Dipstick-Ancillary (obtain specimen); Complete Time: 23:48 cp Administered Medications: No medications were administered Disposition Summary: 12/14/22 00:01 Discharge Ordered Location: Home cp Problem: new cp Symptoms: have improved cp Condition: Stable cp Diagnosis - Retention of urine, unspecified cp Followup: cp - With: Nazario Suero MD - When: 2 - 3 days - Reason: Recheck today's complaints Discharge Instructions: - Discharge Summary Sheet cp - Acute Urinary Retention, Male cp Forms: - Medication Reconciliation Form cp - Thank You Letter cp - Antibiotic Education cp - Prescription Opioid Use cp Signatures: Dispatcher [employer] EDMS Wally Goel PA PA cp Hugo Emerson, RN RN as6
[2022-12-14 00:11] LABS: Renal Epithelial <5 /HPF (None Seen); Urine Bacteria None Seen /HPF (<20); Urine Mucus Slight /HPF (None Seen); Urine RBC None Seen /HPF (None Seen)
[2022-12-14 00:51] VITALS: BP 144/65; TEMP 98.7; O2SAT 96
== END 2022-12-14 00:19 | disposition home or self-care (01) ==
LOC: ER 21:50
DX: R33.9 Retention of urine, unspecified (principal); Z98.890 Other specified postprocedural states; Z85.51 Personal history of malignant neoplasm of bladder; Z88.1 Allergy status to other antibiotic agents; Z88.3 Allergy status to other anti-infective agents
CPT/HCPCS: 51702; 81003; 81015; 99284

== ENCOUNTER 2022-12-14 03:17 | Emergency (ER) | payer OTHER ==
--- OUTSIDE RECORDS SUMMARY | 2022-12-14 03:29 | XMS REPORT | Continuity of Care Document ---
:[address] [facility] t Address [address] [place] [address] Care Team Providers Name Role Phone Kori Mccoy DO Primary Care Physician Kori Mccoy Attending Clinician Unavailable NBA ENGLE Attending Clinician Unavailable LEAH LE Attending Clinician Unavailable Nba Engle MD Attending Clinician Leah Le MD Attending Clinician LEAH LE Attending Clinician Unavailable LEAH LE Admitting Clinician Unavailable Payers Payer Name Policy Type Policy Number Effective Date Expiration Date S ource ERS MEDICARE [id number] 2020 [facility] 00:00:00 YOSEFERS MEDICARE [id number] [facility]Select 1 [id number] 2022 Common TRS/ERS [facility] PPO 00:00:00 [facility] Problems Condition Condition Condition Status Onset Resolution Last Treating Co mments Source Name Details Category Date Date Treatment Clinician Date Lower Lower Disease Active [facility] urinary urinary 2-10 College tract tract 00:00: of symptoms symptoms 00 Medici n (LUTS) (LUTS) e Adult BMI Adult BMI Disease Active Guadalupe jennifer 26.0-26.9 26.0-26.9 8- Nikita ege kg/sq m kg/sq m 00:00: of 00 Medicin e Gastro-eso Gastro-eso Disease Active B muna phageal phageal 07-02 [place] reflux reflux 00:00: of disease disease 00 Medicin without without e esophagiti esophagiti s s Pneumococc Pneumococc Disease Active B muna al al 07-02 College vaccinatio vaccinatio 00:00: of n n 00 Medicin administer administer e ed at ed at current current visit visit Primary Primary Disease Active [facility] generalize generalize 07-02 Co llege d [...] of History of Disease [facility] insect insect 03-26 College sting sting 00:00: of allergy allergy 00 Medicin e Encounter Encounter Disease Active [facility] for for 22 College follow-up follow-up 00:00: of surveillan surveillan 00 Me dicin ce of ce of e 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 Guadalupe jennifer neoplasm neoplasm 1-08 Colleg e of [...] Medicin e Essential Essential Disease Active 2014-11 Guadalupe jennifer hypertensi hypertensi 0-28 Co llege on [...] C ommon s s [facility] [id number] Acute Problem Common right-side Spirit d back - CHI pain with sciatica [facility] 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 - [facility] Elevated Elevated Problem Commo n PSA prostate Spirit specific - [facility] antigen [PSA] [facility] Foreign Foreign Problem Common body in body in Spirit left ear left ear, - CHI initial [facility] [id number] Pneumococc Problem Co mmon al Spirit vaccinatio - CHI n 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 - CH[facility] oste[facility] [id number] Gastro-eso Problem Co mmon phageal Spirit reflux - CHI disease [facility] esophagiti Medica l s Center Hypertensi HTN Problem Commo n on (hypertens Spirit ion) - [facility] Allergic Allergic Problem Commo n rhinitis rhinitis, Spiri t unspecifie - CHI d [facility] y, Medical unspecifie Center d trigger History of History of Problem C ommon insect insect Spirit sting sting - CHI allergy allergy [facility] Hyperlipid Hyperlipid Problem C ommon emia emia Spirit - [facility] [id number] Dizziness Problem Com mon Spirit - [facility] [id number] Leukocytop Problem Com mon enia, Spirit unspecifie - CHI d [facility] Iron Iron Problem Common deficiency deficiency Sp kacy anemia anemia, - CHI unspecifie [facility] iron [facility] deficiency Medica l anemia Center type [id number] 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 wall of wall of [facility] bladder bladder [facility] [id number] Upper Problem Common respirator Spirit y tract - [facility] infection, [facility] d [facility] Chronic Chronic Problem Common fatigue fatigue [facility] syndrome - [facility] [id number] Adult Problem Common general Spirit medical - 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 - [facility] [id number] Urothelial Problem Co mmon carcinoma Spirit of bladder - [facility] [id number] Lumbago Problem Commo n with Spirit sciatica, - CHI left side [facility] [id number] Lumbago Problem Comm on with Spirit sciatica, - CHI right side [facility] [id number] Dupuytren Problem Com mon contractur Spirit e - [facility] [id number] Pernicious Problem Com mon anemia Spirit [facility] [id number] Diverticul Problem Co mmon osis Spirit - [facility] Sciatica Back pain Problem Comm on with Spirit left-sided - CHI sciatica [facility] [id number] 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 omycin ty to 5-13 reaction( College adverse 00:00: s): of reaction 00 diarrhea, Medic in s to bad e drug taste, dizziness Levoflox Drug Active 2018-11 [facility] acin Intolera 12-25 [facility] Levaquin Propensi Active 2018-[address] [facility] ty to 12-25 reaction( College adverse 00:00: s): of reaction 00 severe Medicin s to leg e drug cramps Levoflox Propensi Active 2018-[address] [facility] acin ty to 12-25 reaction( College adverse 00:00: s): of reaction 00 severe Medicin s to leg e drug cramps andreas andersen Active diarrhea, Com mon omycin omycin bad taste, Spirit dizziness - [facility] [id number] Drug Active severe leg Common allergy cramps [facility] Social History Social Habit Start Date Stop Date Quantity Comments Source History of Common Spirit - Tobacco Use [facility] Exposure to 2022-11-15 2022-11-[address] [facility] Joseph e SARS-CoV-2 00:00:00 12:07:00 of Medicine (event) History [facility] 2022-11-18 2022-11-18 2 [facility] ge Physical Activity 00:00:00 00:00:00 of Medi cine DPW History [facility] 2022-11-18 2022-11-18 3 [facility] ge Physical Activity 00:00:00 00:00:00 of Medi cine [facility]PS Tobacco Comment 2022-07-28 2022-07-28 7 [facility] llege 00:00:00 00:00:00 of Medicine Alcohol intake 2019-10-31 2019-10-31 [facility]er [facility]00 of [facility] (finding) Tobacco use and 2019-10-29 2019-10-[address] [facility] exposure 00:00:00 00:00:00 Medical Center Sex Assigned At [birth year] JERSON [place] 00:00:00 00:00:00 Medical Center Smoking Status Start Date Stop Date Source Never Smoker Common [facility] Medications Ordered Filled Start Stop Current Ordering Indication Dosage Frequency Signature Comments Components Source Medication Medication Date Date Medication? Clinician (SIG) Name Name Cyanocobala Yes Take by Guadalupe jennifer min 12 mouth. College (VITAMIN 12:35: [...] 45 daily. Medicin e Blood Yes one [facility] Glucose 11-25 College Monitoring 12:32: of Suppl 45 Medicin (FREESTYLE e LITE) JACKSON montelukast Yes 1 tablet Ba ylor (SINGULAIR) 11-25 College 10 MG 12:32: of tablet 45 Medicin e Zinc 50 MG Yes 1{tbl} [address] [facility] TABS 11-25 College 12:32: of 45 Medicin [...] 8-10 S pirit 00:00: - CHI 00 [facility] Kenalog Kenalog No 40mg Common (Triamcinol (Triamcinol 8-10 S pirit one) one) 00:00: - CHI 00 [facility] Toradol Toradol No 15mg Common (Ketorolac) (Ketorolac) 8-10 S pirit 00:00: - CHI [facility] Kenalog Kenalog No 40mg Common (Triamcinol (Triamcinol 8-10 S pirit one) one) 00:00: - CHI 00 [facility] Toradol Toradol 2021-0 No 15mg Common (Ketorolac) (Ketorolac) 8-10 S pirit 00:00: - CHI 00 [facility] Kenalog Kenalog 2021-0 No 40mg Common (Triamcinol (Triamcinol 8-10 S pirit one) one) 00:00: - CHI 00 [facility] Toradol Toradol 2021-0 No 15mg Common (Ketorolac) (Ketorolac) 8-10 S pirit 00:00: - CHI 00 [facility] Kenalog Kenalog 2021-0 No 40mg Common (Triamcinol (Triamcinol 8-10 S pirit one) one) 00:00: - CHI 00 [facility] Toradol Toradol 2021-0 No 15mg Common (Ketorolac) (Ketorolac) 8-10 S pirit 00:00: - CHI 00 [facility] Kenalog Kenalog 2021-0 No 40mg Common (Triamcinol (Triamcinol 8-10 S pirit one) one) 00:00: - CHI 00 [facility] Toradol Toradol 2021-0 No 15mg Common (Ketorolac) (Ketorolac) 8-10 S pirit 00:00: - CHI 00 [facility] Kenalog Kenalog 2021-0 No 40mg Common (Triamcinol (Triamcinol 8-10 S pirit one) one) 00:00: - CHI 00 [facility] Toradol Toradol 2021-0 No 15mg Common (Ketorolac) (Ketorolac) 8-10 S pirit 00:00: - CHI 00 [facility] Kenalog Kenalog 2021-0 No 40mg Common (Triamcinol (Triamcinol 8-10 S pirit one) one) 00:00: - CHI 00 [facility] Toradol Toradol 2021-0 No 15mg Common (Ketorolac) (Ketorolac) 8-10 S pirit 00:00: - CHI [facility] Kenalog Kenalog 2021-0 No 40mg Common (Triamcinol (Triamcinol 8-10 S pirit one) one) 00:00: - CHI 00 [facility] Toradol Toradol 2021-0 No 15mg Common (Ketorolac) (Ketorolac) 8-10 S pirit 00:00: - CHI 00 [facility] Kenalog Kenalog 2021-0 No 40mg Common (Triamcinol (Triamcinol 8-10 S pirit one) one) 00:00: - CHI 00 [facility] Toradol Toradol 2021-0 No 15mg Common (Ketorolac) (Ketorolac) 8-10 S pirit 00:00: - CHI 00 [facility] Kenalog Kenalog 2021-0 No 40mg Common (Triamcinol (Triamcinol 8-10 S pirit one) one) 00:00: - CHI 00 [facility] Toradol Toradol 2021-0 No 15mg Common (Ketorolac) (Ketorolac) 8-10 S pirit 00:00: - CHI 00 [facility] Kenalog Kenalog 2021-0 No 40mg Common (Triamcinol (Triamcinol 8-10 S pirit one) one) 00:00: - CHI 00 [facility] Toradol Toradol 2021-0 No 15mg Common (Ketorolac) (Ketorolac) 8-10 S pirit 00:00: - CHI 00 [facility] Kenalog Kenalog 2021-0 No 40mg Common (Triamcinol (Triamcinol 8-10 S pirit one) one) 00:00: - CHI 00 [facility] Toradol Toradol 2021-0 No 15mg Common (Ketorolac) (Ketorolac) 8-10 S pirit 00:00: - CHI 00 [facility] Kenalog Kenalog 2021-0 No 40mg Common (Triamcinol (Triamcinol 8-10 S pirit one) one) 00:00: - CHI 00 [facility] Toradol Toradol 2021-0 No 15mg Common (Ketorolac) (Ketorolac) 8-10 S pirit 00:00: - CHI 00 [facility] Kenalog Kenalog 2021-0 No 40mg Common (Triamcinol (Triamcinol 8-10 S pirit one) one) 00:00: - CHI 00 [facility] Toradol Toradol 2021-0 No 15mg Common (Ketorolac) (Ketorolac) 8-10 S pirit 00:00: - CHI 00 [facility] Kenalog Kenalog 2021-0 No 40mg Common (Triamcinol (Triamcinol 8-10 S pirit one) one) 00:00: - CHI 00 [facility] Toradol Toradol 2021-0 No 15mg Common (Ketorolac) (Ketorolac) 8-10 S pirit 00:00: - CHI 00 [facility] Kenalog Kenalog 2021-0 No 40mg Common (Triamcinol (Triamcinol 8-10 S pirit one) one) 00:00: - CHI 00 [facility] methylPREDN methylPREDN 2021-0 2- No [...] (Betamethas 00:00: - CHI one) one) 00 [facility] Celestone Celestone 2021-0 No 6mg Com mon Soluspan Soluspan 5-19 Spirit (Betamethas (Betamethas 00:00: - CHI one) one) 00 [facility] Lidocaine Lidocaine 2021-0 No 10mg Com mon 5-19 Spirit 00:00: - CHI 00 [facility] Lidocaine Lidocaine 2021-0 No 10mg Com mon 5-19 Spirit 00:00: - CHI 00 [facility] Celestone Celestone 2021-0 No 6mg Com mon Soluspan Soluspan 5-19 Spirit (Betamethas (Betamethas 00:00: - CHI one) one) 00 [facility] Celestone Celestone 2022-0 No 6mg Com mon Soluspan Soluspan 5-19 Spirit (Betamethas (Betamethas 00:00: - CHI one) one) 00 [facility] Lidocaine Lidocaine 2021-0 No 10mg Com mon 5- Spirit 00:00: - CHI 00 [facility] Lidocaine Lidocaine 2021-0 No 10mg Com mon 5- Spirit 00:00: - CHI 00 [facility] Celestone Celestone 2021-0 No 6mg Com mon Soluspan Soluspan 5-19 Spirit (Betamethas (Betamethas 00:00: - CHI one) one) 00 [facility] Celestone Celestone 2021-0 No 6mg Com mon Soluspan Soluspan 5-19 Spirit (Betamethas (Betamethas 00:00: - CHI one) one) 00 [facility] Lidocaine Lidocaine 2021-0 No 10mg Com mon 5- Spirit 00:00: - CHI 00 [facility] Lidocaine Lidocaine 2021-0 No 10mg Com mon 5- Spirit 00:00: - CHI 00 [facility] Celestone Celestone 2021-0 No 6mg Com mon Soluspan Soluspan 5-19 Spirit (Betamethas (Betamethas 00:00: - CHI one) one) 00 [facility] Celestone Celestone 2021-0 No 6mg Com mon Soluspan Soluspan 5-19 Spirit (Betamethas (Betamethas 00:00: - CHI one) one) 00 [facility] Lidocaine Lidocaine 2021-0 No 10mg Com mon 5- Spirit 00:00: - CHI 00 [facility] Lidocaine Lidocaine 2021-0 No 10mg Com mon - Spirit 00:00: - CHI 00 [facility] Celestone Celestone 2021-0 No 6mg Com mon Soluspan Soluspan 5-19 Spirit (Betamethas (Betamethas 00:00: - CHI one) one) 00 [facility] Celestone Celestone 2021-0 No 6mg Com mon Soluspan Soluspan 5-19 Spirit (Betamethas (Betamethas 00:00: - CHI one) one) 00 [facility] Lidocaine Lidocaine 2022-0 No 10mg Com mon - Spirit 00:00: - CHI 00 [facility] Lidocaine Lidocaine 2-0 No 10mg Com mon - Spirit 00:00: - CHI 00 [facility] Celestone Celestone 2021-0 No 6mg Com mon Soluspan Soluspan 5-19 Spirit (Betamethas (Betamethas 00:00: - CHI one) one) 00 [facility] Celestone Celestone 2021-0 No 6mg Com mon Soluspan Soluspan 5-19 Spirit (Betamethas (Betamethas 00:00: - CHI one) one) 00 [facility] Lidocaine Lidocaine 2-0 No 10mg Com 04-01 Spirit 00:00: - CHI 00 [facility] Lidocaine Lidocaine 2-0 No 10mg Com 04-01 Spirit 00:00: - CHI 00 [facility] Celestone Celestone 2021-0 No 6mg Com mon Soluspan Soluspan 5-19 Spirit (Betamethas (Betamethas 00:00: - CHI one) one) 00 [facility] Celestone Celestone 2021-0 No 6mg Com mon Soluspan Soluspan 5-19 Spirit (Betamethas (Betamethas 00:00: - CHI one) one) 00 [facility] Lidocaine Lidocaine 2-0 No 10mg Com 04-01 Spirit 00:00: - CHI 00 [facility] Lidocaine Lidocaine 2-0 No 10mg Com mon 04-01 Spirit 00:00: - CHI 00 [facility] Celestone Celestone 2021-0 No 6mg Com mon Soluspan Soluspan 5-19 Spirit (Betamethas (Betamethas 00:00: - CHI one) one) 00 [facility] Celestone Celestone 2021-0 No 6mg Com mon Soluspan Soluspan 5-19 Spirit (Betamethas (Betamethas 00:00: - CHI one) one) 00 [facility] Lidocaine Lidocaine 2-0 No 10mg Com 04-01 Spirit 00:00: - CHI 00 [facility] Lidocaine Lidocaine 2-0 No 10mg Com 04-01 Spirit 00:00: - CHI 00 [facility] Celestone Celestone 2-0 No 6mg Com mon Soluspan Soluspan 5-19 Spirit (Betamethas (Betamethas 00:00: - CHI one) one) 00 [facility] Celestone Celestone 2-0 No 6mg Com mon Soluspan Soluspan 5-19 Spirit (Betamethas (Betamethas 00:00: - CHI one) one) 00 [facility] Lidocaine Lidocaine 2-0 No 10mg Com mon 5-19 Spirit 00:00: - CHI 00 [facility] Lidocaine Lidocaine 2-0 No 10mg Com mon 5-19 Spirit 00:00: - CHI 00 [facility] Celestone Celestone 2-0 No 6mg Com mon Soluspan Soluspan 5-19 Spirit (Betamethas (Betamethas 00:00: - CHI one) one) 00 [facility] Celestone Celestone 2-0 No 6mg Com mon Soluspan Soluspan 5-19 Spirit (Betamethas (Betamethas 00:00: - CHI one) one) 00 [facility] Lidocaine Lidocaine 2-0 No 10mg Com mon 5-19 Spirit 00:00: - CHI 00 [facility] Lidocaine Lidocaine 2-0 No 10mg Com mon 5- Spirit 00:00: - CHI 00 [facility] Celestone Celestone 2-0 No 6mg Com mon Soluspan Soluspan 5-19 Spirit (Betamethas (Betamethas 00:00: - CHI one) one) 00 [facility] Lidocaine Lidocaine 2-0 No 10mg Com mon 5-19 Spirit 00:00: - CHI 00 [facility] Lidocaine Lidocaine 2-0 No 10mg Com mon 5-19 Spirit 00:00: - CHI 00 [facility] Celestone Celestone 2-0 No 6mg Com mon Soluspan Soluspan 5-19 Spirit (Betamethas (Betamethas 00:00: - CHI one) one) 00 [facility] Celestone Celestone 2-0 No 6mg Com mon Soluspan Soluspan 5-19 Spirit (Betamethas (Betamethas 00:00: - CHI one) one) 00 [facility] Lidocaine Lidocaine 2-0 No 10mg Com mon 5- Spirit 00:00: - CHI 00 [facility] Lidocaine Lidocaine 2-0 No 10mg Com mon 5- Spirit 00:00: - CHI 00 [facility] Celestone Celestone 2-0 No 6mg Com mon Soluspan Soluspan 5-19 Spirit (Betamethas (Betamethas 00:00: - CHI one) one) 00 [facility] Celestone Celestone 2-0 No 6mg Com mon Soluspan Soluspan 5-19 Spirit (Betamethas (Betamethas 00:00: - CHI one) one) 00 [facility] Lidocaine Lidocaine 2-0 No 10mg Com mon - Spirit 00:00: - CHI 00 [facility] Lidocaine Lidocaine 2-0 No 10mg Com mon - Spirit 00:00: - CHI 00 [facility] Celestone Celestone 2-0 No 6mg Com mon Soluspan Soluspan 5-19 Spirit (Betamethas (Betamethas 00:00: - CHI one) one) 00 [facility] Celestone Celestone 2-0 No 6mg Com mon Soluspan Soluspan 5-19 Spirit (Betamethas (Betamethas 00:00: - CHI one) one) 00 [facility] Lidocaine Lidocaine 2-0 No 10mg Com mon - Spirit 00:00: - CHI 00 [facility] Lidocaine Lidocaine 2-0 No 10mg Com mon 5- Spirit 00:00: - CHI 00 [facility] Celestone Celestone 2-0 No 6mg Com mon Soluspan Soluspan 5-19 Spirit (Betamethas (Betamethas 00:00: - CHI one) one) 00 [facility] Celestone Celestone 2-0 No 6mg Com mon Soluspan Soluspan 5-19 Spirit (Betamethas (Betamethas 00:00: - CHI one) one) 00 [facility] Lidocaine Lidocaine 2-0 No 10mg Com mon - Spirit 00:00: - CHI 00 [facility] Lidocaine Lidocaine 2-0 No 10mg Com mon 5- Spirit 00:00: - CHI 00 [facility] Celestone Celestone 2021-0 No 6mg Com mon Soluspan Soluspan 5-19 Spirit (Betamethas (Betamethas 00:00: - CHI one) one) 00 [facility] Celestone Celestone 2021-0 No 6mg Com mon Soluspan Soluspan 5-19 Spirit (Betamethas (Betamethas 00:00: - CHI one) one) 00 [facility] Celestone Celestone 2021-0 No 6mg Com mon Soluspan Soluspan 5-19 Spirit (Betamethas (Betamethas 00:00: - CHI one) one) 00 [facility] Lidocaine Lidocaine 2-0 No 10mg Com mon 04-01 Spirit 00:00: - CHI 00 [facility] Lidocaine Lidocaine 2-0 No 10mg Com mon - Spirit 00:00: - CHI 00 [facility] Celestone Celestone 2-0 No 6mg Com mon Soluspan Soluspan 5-19 Spirit (Betamethas (Betamethas 00:00: - CHI one) one) 00 [facility] Celestone Celestone 2021-0 No 6mg Com mon Soluspan Soluspan 5-19 Spirit (Betamethas (Betamethas 00:00: - CHI one) one) 00 [facility] Lidocaine Lidocaine 2-0 No 10mg Com 04-01 Spirit 00:00: - CHI 00 [facility] Lidocaine Lidocaine 2-0 No 10mg Com mon 04-01 Spirit 00:00: - CHI 00 [facility] Celestone Celestone 2-0 No 6mg Com mon Soluspan Soluspan 5-19 Spirit (Betamethas (Betamethas 00:00: - CHI one) one) 00 [facility] Celestone Celestone 2-0 No 6mg Com mon Soluspan Soluspan 5-19 Spirit (Betamethas (Betamethas 00:00: - CHI one) one) 00 [facility] Lidocaine Lidocaine 2-0 No 10mg Com mon - Spirit 00:00: - CHI 00 [facility] Lidocaine Lidocaine 2021-0 No 10mg Com mon - Spirit 00:00: - CHI 00 [facility] Celestone Celestone 2021-0 No 6mg Com mon Soluspan Soluspan 5-19 Spirit (Betamethas (Betamethas 00:00: - CHI one) one) 00 [facility] Celestone Celestone 2021-0 No 6mg Com mon Soluspan Soluspan 5-19 Spirit (Betamethas (Betamethas 00:00: - CHI one) one) 00 [facility] Lidocaine Lidocaine 2021-0 No 10mg Com mon 04-01 Spirit 00:00: - CHI 00 [facility] Lidocaine Lidocaine 2021-0 No 10mg Com mon 04-01 Spirit 00:00: - CHI 00 [facility] Celestone Celestone 2021-0 No 6mg Com mon Soluspan Soluspan 5-19 Spirit (Betamethas (Betamethas 00:00: - CHI one) one) 00 [facility] [facility] Celestone Celestone 2021-0 No 6mg Com mon Soluspan Soluspan 5-19 [facility] (Betamethas (Betamethas 00:00: - CHI one) one) 00 [facility] Lidocaine Lidocaine 2021-0 No 10mg Com 04-01 [facility] 00:00: - [facility] 00 [facility] Lidocaine Lidocaine 2021-0 No 10mg Com mon 04-01 [facility] 00:00: - [facility] 00 [facility] Celestone Celestone 2021-0 No 6mg Com mon Soluspan Soluspan 5-19 [facility] (Betamethas (Betamethas 00:00: - CHI one) one) 00 [facility] Celestone Celestone 2021-0 No 6mg Com mon Soluspan Soluspan 5-19 [facility] (Betamethas (Betamethas 00:00: - CHI one) one) 00 [facility] Lidocaine Lidocaine 2021-0 No 10mg Com 04-01 [facility] 00:00: - [facility] 00 [facility] Lidocaine Lidocaine 2021-0 No 10mg Com mon 04-01 [facility] 00:00: - [facility] 00 [facility] Folic Acid Folic Acid 2021-0 [...] 00:00: 00:00 00 :00 fexofenadin 2020-[address] [facility] e (ODETTE) 11-22 [place] 180 MG 00:00: of tablet Medicin e Triamcinolo 2020-[address] [facility] ne 1 [employer] Acetonide 00:00: of 55 MCG/ACT Medicin AERO e famotidine Yes 40mg Take 40 mg B [facility]ylor (PEPCID) 40 8-12 by mouth Nikita ege MG tablet 00:00: daily. of 00 Medicin e amLODIPine Yes [facility] Besylate-Ce 02-18 [place] lecoxib 00:00: of 2.5-200 MG 00 Medicin TABS e Flomax 0.4 Flomax 0.4 2020- No 1{capsu QD Flomax 0.4 MG MG 3-10 08-19 le} MG 00:00: 00:00 00 :00 ACCU-CHEK 2020-0 Yes USE [address] [facility] CLAIRE PLUS 04-24 STRIP TO Colle ge 00:00: CHECK of 00 GLUCOSE Medicin TWICE e DAILY Accu-Chek Accu-Chek 2020-0 Yes Na Mccoy as Common Claire Plus Claire Plus 04-22 directed Spirit 00:00: - [facility] Accu-Chek 2020-[address] [facility] Softclix 04-22 directed [place] Lancets 00:00: of MISC 00 Medicin e rosuvastati 2020-[address] [facility] n (CRESTOR) 6 [place] 40 MG 00:00: of tablet 00 Medicin e Olopatadine 2019-[address] [facility] HCl 0.6 % 04-09 [place] SOLN 00:00: of 00 Medicin e lisinopril 2020-[address] [facility] (PRINIVIL, 04-08 [place] ZESTRIL) 40 00:00: of MG tablet Medicin e pantoprazol 2018-11 Yes 40mg QD Take [address] [facility] 2-17 [facility] (PROTONIX) 18:08: daily. Medic al 40 MG 13 [place] tablet levothyroxi 2018-11 Yes QD Take by [facility] 25 mcg 2-17 [facility] Cap 18:08: daily . [address] 2018-11 Yes 10mg QD Take [address] (SINGULAIR) 2-17 by mouth Luke [facility] 10 mg 18:08: nightly. Medical tablet [address] [place] [address] 2018-11 Yes 25mg QD Take [address] (ANTIVERT) 2-17 by mouth [facility] 25 MG 18:08: daily. Medical tablet [address] [place] [address] or 2018-[address] [facility] Non-Formula 2-17 100mg QID, Grace kes ry 18:08: Zinc 50mg Medical Medication 13 daily, Center Coenzyme 10 BID, Vit D2 1000u daily, Align probiotic, Chromium 200mg daily, [facility] 2caps daily. rosuvastati 2018-11 Yes 40mg QD Take [address] n (CRESTOR) 2-17 by mouth [facility] 40 MG 18:08: daily. Medical tablet [address] [place] [address] pantoprazol 2018-11 Yes 40mg QD Take [address] e 2-17 by mouth [facility] (PROTONIX) 18:08: daily. Medic al [address] [place] [address] tablet levothyroxi 2018-11 Yes QD Take by [facility] 25 mcg 2-17 mouth [facility] Cap 18:08: daily . [address] 2018-11 Yes 10mg QD Take [address] (SINGULAIR) 2-17 by mouth [facility] 10 mg 18:08: nightly. Medical tablet [address] [place] [address] 2018-11 Yes 25mg QD Take [address] (ANTIVERT) 2-17 by mouth [facility] 25 MG 18:08: daily. Medical tablet [address] [place] [address] 2018-[address] [facility] Non-Formula 2-17 100mg QID, Grace kes ry 18:08: Zinc 50mg Medical Medication 13 daily, Center Coenzyme 10 BID, Vit D2 1000u daily, Align probiotic, Chromium 200mg daily, [facility] 2caps daily. lisinopril 2018-11 Yes 40mg QD Take [address] (PRINIVIL,Z 2-17 by mouth [facility] ESTRIL) 40 18:08: daily. Medic al MG tablet [address] [place] [address] lisinopril 2018-11 Yes 40mg QD Take [address] (PRINIVIL,Z 2-17 by mouth [facility] ESTRIL) 40 18:08: daily. Medic al MG tablet 13 [place] rosuvastati 2018-11 Yes 40mg QD Take [address] n (CRESTOR) 2-17 by mouth [facility] 40 MG 18:08: daily. Medical tablet [address] [place] [address] pantoprazol 2018-11 Yes 40mg QD Take [address] e 2-17 by mouth [facility] (PROTONIX) 18:08: daily. Medic al 40 MG 13 [place] tablet levothyroxi 2018-11 Yes QD Take by [facility] 25 mcg 2-17 mouth [facility] Cap 18:08: daily . [address] montelukast 2018-11 Yes 10mg QD Take [address] (SINGULAIR) 2-17 by mouth [facility] 10 mg 18:08: nightly. Medical tablet [address] [place] [address] meclizine 2018-11 Yes 25mg QD Take [address] (ANTIVERT) 2-17 by mouth [facility] 25 MG 18:08: daily. Medical tablet 13 [place] Missing or 2018-11 Yes Magnesium CH I [...] 18:08: daily. Medic al MG tablet 13 [place] rosuvastati 2018-11 Yes 40mg QD Take [address] n (CRESTOR) 2-17 by mouth [facility] 40 MG 18:08: daily. Medical tablet [address] [place] [address] pantoprazol 2018-11 Yes 40mg QD Take [address] e 2-17 by mouth [facility] (PROTONIX) 18:08: daily. Medic al [address] [place] [address] tablet levothyroxi 2018-11 Yes QD Take by [facility] 25 mcg 2-17 mouth [facility] Cap 18:08: daily . [address] 2018-11 Yes 10mg QD Take [address] (SINGULAIR) 2-17 by mouth [facility] 10 mg 18:08: nightly. Medical tablet 13 [facility] 2018-11 Yes 25mg QD Take [address] (ANTIVERT) 2-17 by mouth [facility] 25 MG 18:08: daily. Medical tablet [address] [place] [address] or 2018-[address] [facility] Non-Formula 2-17 100mg QID, Grace kes ry 18:08: Zinc 50mg Medical Medication 13 daily, Center Coenzyme 10 BID, Vit D2 1000u daily, Align probiotic, Chromium 200mg daily, [facility] 2caps daily. lisinopril 2018-11 Yes 40mg QD Take [address] (PRINIVIL,Z 2-17 by mouth [facility] ESTRIL) 40 18:08: daily. Medic al MG tablet [address] [place] [address] rosuvastati 2018-11 Yes 40mg QD Take [address] n (CRESTOR) 2-17 by mouth [facility] 40 MG 18:08: daily. Medical tablet [address] [place] [address] pantoprazol 2018-11 Yes 40mg QD Take [address] e 2-17 by mouth [facility] (PROTONIX) 18:08: daily. Medic al [address] [place] [address] tablet levothyroxi 2018-11 Yes QD Take by [facility] 25 mcg 2-17 mouth [facility] Cap 18:08: daily . Medical [address] [place] [address] montelukast 2018-11 Yes 10mg QD Take [address] (SINGULAIR) 2-17 by mouth [facility] 10 mg 18:08: nightly. Medical tablet [address] [place] [address] 2018-11 Yes 25mg QD Take [address] (ANTIVERT) 2-17 by mouth [facility] 25 MG 18:08: daily. Medical tablet [address] [place] [address] 2018-[address] [facility] Non-Formula 2-17 100mg QID, Grace kes ry 18:08: Zinc 50mg Medical Medication 13 daily, Center Coenzyme 10 BID, Vit D2 1000u daily, Align probiotic, Chromium 200mg daily, [facility] 2caps daily. lisinopril 2018-11 Yes 40mg QD Take [address] (PRINIVIL,Z 2-17 by mouth Luke s ESTRIL) 40 18:08: daily. Medic al MG tablet [address] [place] [place] [address]11 Yes 40mg QD Take [address] [facility] (CRESTOR) 2-17 by mouth [facility] 40 MG 18:08: daily. Medical tablet [address] [place] [address] sulfamethox 2019-1 Yes [id number] 1{tbl} Take [address] [facility] azole-trime 2-11 by mouth Nikita ege thoprim 00:00: two times of (BACTRIM 00 daily. Medicin DS) 800-160 e MG [facility]0 No 40mg Common (Triamcinol (Triamcinol 3-06 S pirit one) one) 00:00: - [facility]I 00 [facility] Kenalog 2017-0 No 40mg Common (Triamcinol (Triamcinol 3-06 S pirit one) one) 00:00: - CHI 00 [facility] Kenalog 2017-0 No 40mg Common (Triamcinol (Triamcinol 3-06 S pirit one) one) 00:00: - CHI 00 [facility] Kenalog 2017-0 No 40mg Common (Triamcinol (Triamcinol 3-06 S pirit one) one) 00:00: - CHI 00 [facility] Kenalog 2017-0 No 40mg Common (Triamcinol (Triamcinol 3-06 S pirit one) one) 00:00: - CHI 00 [facility] Kenalog 2017-0 No 40mg Common (Triamcinol (Triamcinol 3-06 S pirit one) one) 00:00: - CHI 00 [facility] Mimi Kenalog 2017-0 No 40mg Common (Triamcinol (Triamcinol 3-06 S pirit one) one) 00:00: - CHI 00 [facility] Mimi Kenalog 2017-0 No 40mg Common (Triamcinol (Triamcinol 3-06 S pirit one) one) 00:00: - CHI 00 [facility] Kenalog 2017-0 No 40mg Common (Triamcinol (Triamcinol 3-06 S pirit one) one) 00:00: - CHI 00 [facility] Mimi Kenalog 2018-0 No 40mg Common (Triamcinol (Triamcinol 3-06 S pirit one) one) 00:00: - CHI 00 [facility] Kenalog 2017-0 No 40mg Common (Triamcinol (Triamcinol 3-06 S pirit one) one) 00:00: - CHI 00 [facility] Kenalog Kenalog 2018-0 No 40mg Common (Triamcinol (Triamcinol 3-06 S pirit one) one) 00:00: - CHI 00 [facility] Kenalog Kenalog 2018-0 No 40mg Common (Triamcinol (Triamcinol 3-06 S pirit one) one) 00:00: - CHI 00 [facility] Kenalog Kenalog 2018-0 No 40mg Common (Triamcinol (Triamcinol 3-06 S pirit one) one) 00:00: - CHI 00 [facility] Kenalog Kenalog 2018-0 No 40mg Common (Triamcinol (Triamcinol 3-06 S pirit one) one) 00:00: - CHI 00 [facility] Kenalog Kenalog 2018-0 No 40mg Common (Triamcinol (Triamcinol 3-06 S pirit one) one) 00:00: - CHI 00 [facility] Kenalog Kenalog 2018-0 No 40mg Common (Triamcinol (Triamcinol 3-06 S pirit one) one) 00:00: - CHI 00 [facility] Kenalog Kenalog 2018-0 No 40mg Common (Triamcinol (Triamcinol 3-06 S pirit one) one) 00:00: - CHI 00 [facility] Kenalog Kenalog 2018-0 No 40mg Common (Triamcinol (Triamcinol 3-06 S pirit one) one) 00:00: - CHI 00 [facility] Kenalog Kenalog 2018-0 No 40mg Common (Triamcinol (Triamcinol 3-06 S pirit one) one) 00:00: - CHI 00 [facility] Kenalog Kenalog 2018-0 No 40mg Common (Triamcinol (Triamcinol 3-06 S pirit one) one) 00:00: - CHI 00 [facility] Kenalog Kenalog 2018-0 No 40mg Common (Triamcinol (Triamcinol 3-06 S pirit one) one) 00:00: - CHI 00 [facility] Kenalog Kenalog 2018-0 No 40mg Common (Triamcinol (Triamcinol 3-06 S pirit one) one) 00:00: - CHI 00 [facility] Mimi Mejiaalog 2018-0 No 40mg Common (Triamcinol (Triamcinol 3-06 S pirit one) one) 00:00: - CHI 00 [facility] Mimi Le 2018-0 No 40mg Common (Triamcinol (Triamcinol 3-06 S pirit one) one) 00:00: - CHI 00 [facility] Mimi Le 2017-0 No 40mg Common (Triamcinol (Triamcinol 3-06 S pirit one) one) 00:00: - CHI 00 [facility] Mimi Le 2018-0 No 40mg Common (Triamcinol (Triamcinol 3-06 S pirit one) one) 00:00: - CHI 00 [facility] Mimi Le 2017-0 No 40mg Common (Triamcinol (Triamcinol 3-06 S pirit one) one) 00:00: - CHI 00 [facility] Mimi Le 2018-0 No 40mg Common (Triamcinol (Triamcinol 3-06 S pirit one) one) 00:00: - CHI 00 [facility] Accu-Chek Accu-Chek No BID Accu-Chek Claire Plus [...] Na Mccoy one [facility] - [facility] Levothyroxi Levothyroxi Yes Na Mccoy 1 tablet Common ne Sodium ne Sodium on an Spir it empty - CHI stomach in [facility] Lancets Lancets Yes Na Mccoy as Common directed Spirit - [facility] Accu-Chek Accu-Chek Yes Na Mccoy as Co mmon Softclix Softclix directed Spi rit Lancets Lancets - CHI [facility] Meclizine Meclizine Yes Na Mccoy TAKE 1 Common HCl HCl TABLET BY Spirit MOUTH - CHI THREE TIMES [facility] Mobic Mobic Yes Na Mccoy 1 tablet Common [facility] - [facility] Euthyrox Euthyrox Yes Na Mccoy TAKE 1 Co mmon TABLET BY Spirit MOUTH ONCE - CHI DAILY IN [facility] ON Medical AN EMPTY Center STOMACH EpiPen EpiPen Yes Na Mccoy not Common 2-Gerald 2-Gerald defined [facility] Olopatadine Olopatadine Yes Na Mccoy 2 sprays Common HCl HCl in each Spirit nostril [facility] Meclizine Meclizine Yes Na Mccoy TAKE 1 Common HCl HCl TABLET BY Spirit MOUTH 3 - CHI TIMES A [facility] Levothyroxi Levothyroxi Yes Na Mccoy 1 tablet Common ne Sodium ne Sodium on an Spir it empty - CHI stomach in [facility] Cipro Cipro Yes Na Mccoy 1 tablet [facility] Augmentin Augmentin Yes Na Mccoy 1 tablet [facility] Crestor Crestor Yes Na Mccoy 1 tablet Co mmon [facility] Pantoprazol Pantoprazol Yes Na Mccoy 1 tablet Common e Sodium e Sodium [facility] blood blood Yes Na Mccoy as Common glucose glucose directed Spiri t test strip test strip - C HI [facility] Singulair Singulair Yes Na Mccoy 1 tablet [facility] Lisinopril Lisinopril Yes Na Mccoy 1 tablet [facility] Accu-Chek Accu-Chek No QD Accu-Chek Claire Plus [...] 40 MG 40 MG t} 40 MG Immunizations Ordered Immunization Filled Immunization Date Status Commen ts Source Name Name [employer] 2021-07-30 Completed [facility] - 14:01:00 [facility] FluAD FluAD 2021-07-30 Completed [facility] - 14:01:00 [facility] FluAD FluAD 2021-07-30 Completed [facility] - 14:01:00 [facility] FluAD FluAD 2021-07-30 Completed [facility] - 14:01:00 [facility] FluAD FluAD 2021-07-30 Completed [facility] - 14:01:00 [facility] FluAD FluAD 2021-07-30 Completed [facility] - 14:01:00 [facility] FluAD FluAD 2021-07-30 Completed [facility] - 14:01:00 [facility] FluAD FluAD 2021-07-30 Completed [facility] - 14:01:00 [facility] FluAD FluAD 2021-07-30 Completed [facility] - 14:01:00 [facility] FluAD FluAD 2021-07-30 Completed [facility] - 14:01:00 [facility] FluAD FluAD 2021-07-30 Completed [facility] - 14:01:00 [facility] FluAD FluAD 2021-07-30 Completed [facility] - 14:01:00 [facility] FluAD FluAD 2021-07-30 Completed [facility] - 14:01:00 [facility] FluAD FluAD 2021-07-30 Completed [facility] - 14:01:00 [facility] FluAD FluAD 2021-07-30 Completed [facility] - 14:01:00 [facility] FluAD FluAD 2021-07-30 Completed [facility] - 14:01:00 [facility] FluAD FluAD 2021-07-30 Completed [facility] - 14:01:00 [facility] FluAD FluAD 2021-07-30 Completed [facility] - 14:01:00 [facility] FluAD FluAD 2021-07-30 Completed [facility] - 14:01:00 [facility] FluAD FluAD 2021-07-30 Completed [facility] - 14:01:00 [facility] FluAD FluAD 2021-07-30 Completed [facility] - 14:01:00 [facility] FluAD FluAD 2021-07-30 Completed [facility] - 14:01:00 [facility] FluAD FluAD 2021-07-30 Completed [facility] - 14:01:00 [facility] FluAD FluAD 2021-07-30 Completed [facility] - 14:01:00 [facility] FluAD FluAD 2021-07-30 Completed [facility] - 14:01:00 [facility] FluAD FluAD 2021-07-30 Completed [facility] - 14:01:00 [facility] FluAD FluAD 2021-07-30 Completed [facility] - 14:01:00 [facility] FluAD FluAD 2021-07-30 Completed [facility] - 14:01:00 [facility] FluAD FluAD 2021-07-30 Completed [facility] - 14:01:00 [facility] FluAD FluAD 2021-07-30 Completed [facility] - 14:01:00 [facility] FluAD FluAD 2021-07-30 Completed [facility] - 14:01:00 [facility] FluAD FluAD 2021-07-30 Completed [facility] - 14:01:00 [facility] FluAD FluAD 2021-07-30 Completed [facility] - 14:01:00 [facility] FluAD FluAD 2021-07-30 Completed [facility] - 14:01:00 [facility] FluAD FluAD 2021-07-30 Completed [facility] - 14:01:00 [facility] Influenza Hd 2020-09-[address] [facility] Colle ge 00:00:00 of [facility] FluAD FluAD 2020-08-27 Completed [facility] - 10:11:00 [facility] FluAD FluAD 2020-08-27 Completed [facility] - 10:11:00 [facility] FluAD FluAD 2020-08-27 Completed [facility] - 10:11:00 [facility] FluAD FluAD 2020-08-27 Completed [facility] - 10:11:00 [facility] FluAD FluAD 2020-08-27 Completed [facility] - 10:11:00 [facility] FluAD FluAD 2020-08-27 Completed [facility] - 10:11:00 [facility] FluAD FluAD 2020-08-27 Completed [facility] - 10:11:00 [facility] FluAD FluAD 2020-08-27 Completed [facility] - 10:11:00 [facility] FluAD FluAD 2020-08-27 Completed [facility] - 10:11:00 [facility] FluAD FluAD 2020-08-27 Completed [facility] - 10:11:00 [facility] FluAD FluAD 2020-08-27 Completed [facility] - 10:11:00 [facility] FluAD FluAD 2020-08-27 Completed [facility] - 10:11:00 [facility] FluAD FluAD 2020-08-27 Completed [facility] - 10:11:00 [facility] FluAD FluAD 2020-08-27 Completed [facility] - 10:11:00 [facility] FluAD FluAD 2020-08-27 Completed [facility] - 10:11:00 [facility] FluAD FluAD 2020-08-27 Completed [facility] - 10:11:00 [facility] FluAD FluAD 2020-08-27 Completed [facility] - 10:11:00 [facility] FluAD FluAD 2020-08-27 Completed [facility] - 10:11:00 [facility] FluAD FluAD 2020-08-27 Completed [facility] - 10:11:00 [facility] FluAD FluAD 2020-08-27 Completed [facility] - 10:11:00 [facility] FluAD FluAD 2020-08-27 Completed [facility] - 10:11:00 [facility] FluAD FluAD 2020-08-27 Completed [facility] - 10:11:00 [facility] FluAD FluAD 2020-08-27 Completed [facility] - 10:11:00 [facility] FluAD FluAD 2020-08-27 Completed [facility] - 10:11:00 [facility] FluAD FluAD 2020-08-27 Completed [facility] - 10:11:00 [facility] FluAD FluAD 2020-08-27 Completed [facility] - 10:11:00 [facility] FluAD FluAD 2020-08-27 Completed [facility] - 10:11:00 [facility] FluAD FluAD 2020-08-27 Completed [facility] - 10:11:00 [facility] FluAD FluAD 2020-08-27 Completed [facility] - 10:11:00 [facility] FluAD FluAD 2020-08-27 Completed [facility] - 10:11:00 [facility] FluAD FluAD 2020-08-27 Completed [facility] - 10:11:00 [facility] FluAD FluAD 2020-08-27 Completed [facility] - 10:11:00 [facility] FluAD FluAD 2020-08-27 Completed [facility] - 10:11:00 [facility] FluAD FluAD 2020-08-27 Completed [facility] - 10:11:00 [facility] FluAD FluAD 2020-08-27 Completed [facility] - 10:11:00 [facility] FluAD FluAD 2019-07-25 Completed [facility] - 12:27:00 [facility] FluAD FluAD 2019-07-25 Completed [facility] - 12:27:00 [facility] FluAD FluAD 2019-07-25 Completed [facility] - 12:27:00 [facility] FluAD FluAD 2019-07-25 Completed [facility] - 12:27:00 [facility] FluAD FluAD 2019-07-25 Completed [facility] - 12:27:00 [facility] FluAD FluAD 2019-07-25 Completed [facility] - 12:27:00 [facility] FluAD FluAD 2019-07-25 Completed [facility] - 12:27:00 [facility] FluAD FluAD 2019-07-25 Completed [facility] - 12:27:00 [facility] FluAD FluAD 2019-07-25 Completed [facility] - 12:27:00 [facility] FluAD FluAD 2019-07-25 Completed [facility] - 12:27:00 [facility] FluAD FluAD 2019-07-25 Completed [facility] - 12:27:00 [facility] FluAD FluAD 2019-07-25 Completed [facility] - 12:27:00 [facility] FluAD FluAD 2019-07-25 Completed [facility] - 12:27:00 [facility] FluAD FluAD 2019-07-25 Completed [facility] - 12:27:00 [facility] FluAD FluAD 2019-07-25 Completed [facility] - 12:27:00 [facility] FluAD FluAD 2019-07-25 Completed [facility] - 12:27:00 [facility] FluAD FluAD 2019-07-25 Completed [facility] - 12:27:00 [facility] FluAD FluAD 2019-07-25 Completed [facility] - 12:27:00 [facility] FluAD FluAD 2019-07-25 Completed [facility] - 12:27:00 [facility] FluAD FluAD 2019-07-25 Completed [facility] - 12:27:00 [facility] FluAD FluAD 2019-07-25 Completed [facility] - 12:27:00 [facility] FluAD FluAD 2019-07-25 Completed [facility] - 12:27:00 [facility] FluAD FluAD 2019-07-25 Completed [facility] - 12:27:00 [facility] FluAD FluAD 2019-07-25 Completed [facility] - 12:27:00 [facility] FluAD FluAD 2019-07-25 Completed [facility] - 12:27:00 [facility] FluAD FluAD 2019-07-25 Completed [facility] - 12:27:00 [facility] FluAD FluAD 2019-07-25 Completed [facility] - 12:27:00 [facility] FluAD FluAD 2019-07-25 Completed [facility] - 12:27:00 [facility] FluAD FluAD 2019-07-25 Completed [facility] - 12:27:00 [facility] FluAD FluAD 2019-07-25 Completed [facility] - 12:27:00 [facility] FluAD FluAD 2019-07-25 Completed [facility] - 12:27:00 [facility] FluAD FluAD 2019-07-25 Completed [facility] - 12:27:00 [facility] FluAD FluAD 2019-07-25 Completed [facility] - 12:27:00 [facility] FluAD FluAD 2019-07-25 Completed [facility] - 12:27:00 [facility] FluAD FluAD 2019-07-25 Completed [facility] - 12:27:00 [facility] FluAD FluAD 2019-07-25 Completed [facility] - 00:00:00 [facility] Pneumovax (PPSV23) Pneumovax (PPSV23) 2018-04-24 Completed [facility] - 10:31:00 [facility] Pneumovax (PPSV23) Pneumovax (PPSV23) 2018-04-24 Completed [facility] - 10:31:00 [facility] Pneumovax (PPSV23) Pneumovax (PPSV23) 2018-04-24 Completed [facility] - 10:31:00 [facility] Pneumovax (PPSV23) Pneumovax (PPSV23) 2018-04-24 Completed [facility] - 10:[facility]:00 [facility] Pneumovax (PPSV23) Pneumovax (PPSV23) 2018-04-24 Completed [facility] - 10:31:00 [facility] Pneumovax (PPSV23) Pneumovax (PPSV23) 2018-04-24 Completed [facility] 10:31:00 [facility] Pneumovax (PPSV23) Pneumovax (PPSV23) 2018-04-24 Completed [facility] - 10:31:00 [facility] Pneumovax (PPSV23) Pneumovax (PPSV23) 2018-04-24 Completed [facility] - 10:31:00 [facility] Pneumovax (PPSV23) Pneumovax (PPSV23) 2018-04-24 Completed [facility] - 10:31:00 [facility] Pneumovax (PPSV23) Pneumovax (PPSV23) 2018-04-24 Completed [facility] - 10:31:00 [facility] Pneumovax (PPSV23) Pneumovax (PPSV23) 2018-04-24 Completed [facility] - 10:31:00 [facility] Pneumovax (PPSV23) Pneumovax (PPSV23) 2018-04-24 Completed [facility] - 10:31:00 [facility] Pneumovax (PPSV23) Pneumovax (PPSV23) 2018-04-24 Completed [facility] - 10:[facility]:00 [facility] Pneumovax (PPSV23) Pneumovax (PPSV23) 2018-04-24 Completed [facility] 10:[facility]:00 [facility] Pneumovax (PPSV23) Pneumovax (PPSV23) 2018-04-24 Completed [facility] 10:[facility]:00 [facility] Pneumovax (PPSV23) Pneumovax (PPSV23) 2018-04-24 Completed [facility] - 10:31:00 [facility] Pneumovax (PPSV23) Pneumovax (PPSV23) 2018-04-24 Completed [facility] - 10:31:00 [facility] Pneumovax (PPSV23) Pneumovax (PPSV23) 2018-04-24 Completed [facility] - 10:31:00 [facility] Pneumovax (PPSV23) Pneumovax (PPSV23) 2018-04-24 Completed [facility] - 10:31:00 [facility] Pneumovax (PPSV23) Pneumovax (PPSV23) 2018-04-24 Completed [facility] - 10:31:00 [facility] Pneumovax (PPSV23) Pneumovax (PPSV23) 2018-04-24 Completed [facility] - 10:31:00 [facility] Pneumovax (PPSV23) Pneumovax (PPSV23) 2018-04-24 Completed [facility] 10:31:00 [facility] Pneumovax (PPSV23) Pneumovax (PPSV23) 2018-04-24 Completed [facility] - 10:31:00 [facility] Pneumovax (PPSV23) Pneumovax (PPSV23) 2018-04-24 Completed [facility] - 10:31:00 [facility] Pneumovax (PPSV23) Pneumovax (PPSV23) 2018-04-24 Completed [facility] - 10:31:00 [facility] Pneumovax (PPSV23) Pneumovax (PPSV23) 2018-04-24 Completed [facility] - 10:31:00 [facility] Pneumovax (PPSV23) Pneumovax (PPSV23) 2018-04-24 Completed [facility] - 10:31:00 [facility] Pneumovax (PPSV23) Pneumovax (PPSV23) 2018-04-24 Completed [facility] - 10:31:00 [facility] Pneumovax (PPSV23) Pneumovax (PPSV23) 2018-04-24 Completed [facility] - 10:31:00 [facility] Pneumovax (PPSV23) Pneumovax (PPSV23) 2018-04-24 Completed [facility] - 10:31:00 [facility] Pneumovax (PPSV23) Pneumovax (PPSV23) 2018-04-24 Completed [facility] - 10:31:00 [facility] Pneumovax (PPSV23) Pneumovax (PPSV23) 2018-04-24 Completed [facility] - 10:31:00 [facility] Pneumovax (PPSV23) Pneumovax (PPSV23) 2018-04-24 Completed [facility] - 10:31:00 [facility] Pneumovax (PPSV23) Pneumovax (PPSV23) 2018-04-24 Completed [facility] - 10:31:00 [facility] Pneumovax (PPSV23) Pneumovax (PPSV23) 2018-04-24 Completed [facility] - 10:31:00 [facility] Kenalog Kenalog 2018-01-17 Completed [facility] - (Triamcinolone) (Triamcinolone) 11:32:00 [facility] Kenalog Kenalog 2018-01-17 Completed [facility] - (Triamcinolone) (Triamcinolone) 11:32:00 [facility] Influenza 2015-09-10 Completed [facility] [place] Vital Signs Vital Name Observation Time Observation Value Comments Source Systolic blood 2022-11-25 18:22:00 170 mm[Hg] [facility] of pressure Medicine Diastolic blood 2022-11-25 18:22:00 81 mm[Hg] [facility] Medicine Heart rate 2022-11-25 18:22:00 64 /min [facility] Body temperature 2022-11-25 18:22:00 36.44 Latoya [facility] Respiratory rate 2022-11-25 18:22:00 18 /min [facility] Body height 2022-11-25 18:22:00 172.7 cm [facility] Body weight 2022-11-25 18:22:00 76.658 kg [facility] BMI 2022-11-25 18:22:00 25.70 kg/m2 [facility] height 2022-07-13 08:40:00 68 [in_i] Common [facility] weight 2022-07-13 08:40:00 166.7 [lb_av] [facility] temperature 2022-07-13 08:40:00 97.9 [degF] [facility] bmi 2022-07-13 08:40:00 25.34 kg/m2 [facility] oximetry 2022-07-13 08:40:00 97 % [facility] respiratory rate 2022-07-13 08:40:00 16 /min Comm on [facility] blood pressure 2022-07-13 08:40:00 127 mm[Hg] [facility] - systolic [facility] blood pressure 2022-07-13 08:40:00 60 mm[Hg] [facility] - diastolic [facility] height 2022-06-23 11:20:00 68 [in_i] Common [facility] weight 2022-06-23 11:20:00 171.1 [lb_av] [facility] temperature 2022-06-23 11:20:00 97.7 [degF] Common [facility] bmi 2022-06-23 11:20:00 26.01 kg/m2 [facility] S [facility] oximetry 2022-06-23 11:20:00 97 % [facility] respiratory rate 2022-06-23 11:20:00 16 /min Comm on [facility] blood pressure 2022-06-23 11:20:00 139 mm[Hg] Common [facility] - systolic [facility] blood pressure 2022-06-23 11:20:00 69 mm[Hg] [facility] - diastolic [facility] height 2022-06-02 08:20:00 68 [in_i] [facility] weight 2022-06-02 08:20:00 163 [lb_av] [facility] 2022-06-02 08:20:00 24.78 kg/m2 [facility] height 2022-04-01 14:00:00 68 [in_i] [facility] weight 2022-04-01 14:00:00 161 [lb_av] [facility] 2022-04-01 14:00:00 24.48 kg/m2 [facility] blood pressure 2022-04-01 14:00:00 126 mm[Hg] Common [facility] - systolic [facility] blood pressure 2022-04-01 14:00:00 78 mm[Hg] [facility] - diastolic [facility] height 2022-03-24 13:30:00 68 [in_i] [facility] weight 2022-03-24 13:30:00 160 [lb_av] [facility] S [facility] bmi 2022-03-24 13:30:00 24.33 kg/m2 [facility] height 2022-03-02 16:40:00 68 [in_i] [facility] S pirit [facility] weight 2022-03-02 16:40:00 170.8 [lb_av] [facility] temperature 2022-03-02 16:40:00 97.6 [degF] [facility] bmi 2022-03-02 16:40:00 25.97 kg/m2 [facility] oximetry 2022-03-02 16:40:00 96 % [facility] respiratory rate 2022-03-02 16:40:00 16 /min Comm on [facility] blood pressure 2022-03-02 16:40:00 138 mm[Hg] [facility] - systolic [facility] blood pressure 2022-03-02 16:40:00 58 mm[Hg] [facility] - diastolic [facility] height 2022-02-10 08:40:00 68 [in_i] [facility] weight 2022-02-10 08:40:00 160 [lb_av] [facility] bmi 2022-02-10 08:40:00 24.33 kg/m2 [facility] height 2021-10-29 08:40:00 68 [in_i] Common [facility] weight 2021-10-29 08:40:00 166 [lb_av] [facility] temperature 2021-10-29 08:40:00 97.2 [degF] [facility] bmi 2021-10-29 08:40:00 25.24 kg/m2 [facility] oximetry 2021-10-29 08:40:00 98 % [facility] blood pressure 2021-10-29 08:40:00 132 mm[Hg] [facility] - systolic [facility] blood pressure 2021-10-29 08:40:00 63 mm[Hg] [facility] - diastolic [facility] height 2021-10-02 08:00:00 68 [in_i] [facility] weight 2021-10-02 08:00:00 156 [lb_av] [facility] bmi 2021-10-02 08:00:00 23.72 kg/m2 [facility] height 2021-07-30 13:00:00 68 [in_i] [facility] weight 2021-07-30 13:00:00 175.4 [lb_av] [facility] temperature 2021-07-30 13:00:00 97.5 [degF] [facility] S pirit [facility] bmi 2021-07-30 13:00:00 26.67 kg/m2 [facility] oximetry 2021-07-30 13:00:00 96 % [facility] respiratory rate 2021-07-30 13:00:00 16 /min Comm on [facility] - [facility] blood pressure 2021-07-30 13:00:00 132 mm[Hg] [facility] - systolic [facility] blood pressure 2021-07-30 13:00:00 74 mm[Hg] [facility] - diastolic [facility] Systolic blood 2019-11-21 21:50:00 136 mm[Hg] [facility] Medicine Diastolic blood 2019-11-21 21:50:00 76 mm[Hg] [facility] Medicine Heart rate 2019-11-21 21:50:00 51 /min [facility] Body height 2019-11-21 21:50:00 172.7 cm [facility] Body weight 2019-11-21 21:50:00 72.576 kg [facility] BMI 2019-11-21 21:50:00 24.33 kg/m2 [facility] Systolic blood 2019-11-21 21:50:00 136 mm[Hg] [facility] Medicine Diastolic blood 2019-11-21 21:50:00 76 mm[Hg] [facility] Medicine Heart rate 2019-11-21 21:50:00 51 /min [facility] Body height 2019-11-21 21:50:00 172.7 cm [facility] Body weight 2019-11-21 21:50:00 72.576 kg [facility] BMI 2019-11-21 21:50:00 24.33 kg/m2 [facility] Procedures Procedure Date / Time Performed Performing Clinician Sourc e CBC W/AUTO DIFF WITH 2022-11-25 19:17:00 Nba Engle [facility] CYSTOSCOPY 2022-07-28 10:00:00 [facility] BLADDER WASHINGS 2022-07-28 09:40:[address] [facility] Nikita ege of CYTOLOGY X2 Medicine POCT URINALYSIS 2022-07-28 00:00:[address] [facility] Colle ge of DIPSTICK Medicine CULTURE, 2019-11-22 14:56:00 [facility] ege of URINE/SENSITIVITY ON Medicine ALL Plan of Care Planned Activity Planned Date Details Comments Source Future Scheduled 2022-11-25 COVID-19 Vaccine (#1) [facility] of Test 15:21:04 [code = COVID-19 Medicine Vaccine (#1)] Future Scheduled 2022-11-25 Pneumococcal 65+ (1 - Ba [facility] of Test 15:21:04 PCV) [code = Medicine Pneumococcal 65+ (1 - PCV)] Future Scheduled 2022-11-25 TETANUS SHOT (ADULT) [facility] of Test 15:21:04 [code = TETANUS SHOT Medicin e (ADULT)] Future Scheduled 2022-11-[address] [facility] Col lege of Test 15:21:04 examination Medicine (regime/therapy) [code = 431779654] Future Scheduled 2022-11-[address] [facility] C [facility]lege of Test 15:21:04 Retinopathy Screening Medici ne [code = Annual Diabetic Retinopathy Screening] Future Scheduled 2022-11-25 BMI Follow Up Plan [facility] of Test 15:21:04 [code = BMI Follow Up Medici ne Plan] Future Scheduled 2022-11-25 Medicare Awv (Initial) B [facility] of Test 15:21:04 [code = Medicare Awv Medicin e (Initial)] Future Scheduled 2022-11-25 FLU VACCINE > [address] [facility] of Test 15:21:04 [code = FLU VACCINE > Medici ne 6 MONTHS] Future Scheduled 2022-11-25 Fall Screen [code = [facility] of Test 15:21:04 Fall Screen] Medicine Future Scheduled 2022-11-25 FOLATE [code = 2284-8] [facility] of Test 12:59:08 Medicine Future Scheduled 2022-11-25 VITAMIN B12 [code = [facility] of Test 12:59:07 2132-9] Medicine Future Scheduled 2022-11-25 IRON+TIBC+%SAT [code = [facility] of Test 12:59:07 NOCPT] Medicine Future Scheduled 2022-11-25 FERRITIN [code = [facility] College of Test 12:59:07 91328-4] Medicine Future Scheduled 2022-11-14 DEPRESSION SCREENING CHI [...] VACCINE (#1)] Future Scheduled TETANUS SHOT (ADULT) [facility] of Test [code = TETANUS SHOT Medicin e (ADULT)] Future Scheduled FALL SCREEN [code = [facility] of Test FALL SCREEN] Medicine Future Scheduled PNEUMOVAX >=65 [facility] llege of Test (PPSV23) [code = Medicine PNEUMOVAX >=65 (PPSV23)] Future Scheduled PREVNAR >= 65 (PCV13) Ba [facility] of Test [code = PREVNAR >= 65 Medici ne (PCV13)] Future Scheduled MEDICARE AWV (Initial) B [facility] of Test [code = MEDICARE AWV Medicin e (Initial)] Future Scheduled FLU VACCINE > [address] [facility] of Test [code = FLU VACCINE > Medici ne 6 MONTHS] Encounters Start End Encounter Admission Attending Care Care Encounter Source Date/Time Date/Time Type Type Clinicians Facility Department ID 2022-06-23 Outpatient Kori Mccoy [facility] [id number] 2 Common 10:50:01 [facility] 2022-05-31 Outpatient Mccoy, Na STLMLC STLMLC [id number] 2 Common 08:13:01 [facility] 2022-04-01 Outpatient Mccoy, Na STLMLC STLMLC [id number] 2 Common 13:48:05 [facility] 2022-03-02 Outpatient Mccoy, Na STLMLC STLMLC [id number] 2 Common 16:19:00 [facility] 2022-02-08 Outpatient Mccoy, Na STLMLC STLMLC [id number] 2 Common 08:34:01 [facility] 2021-12-10 Outpatient Mccoy, Na STLMLC STLMLC [id number] 2 Common 15:36:00 [facility] 2021-12-09 Outpatient Mccoy, Na STLMLC STLMLC [id number] 2 Common 14:24:20 [id number] [facility] 2021-12-09 Outpatient Mccoy, Na STLMLC STLMLC [id number] 2 Common 14:15:28 [id number] [facility] 2021-12-09 Outpatient Mccoy, Na STLMLC STLMLC [id number] 2 Common 13:14:42 [id number] [facility] 2021-12-09 Outpatient Mccoy, Na STLMLC STLMLC [id number] 2 Common 13:05:10 [id number] [facility] 2021-12-09 Outpatient Mccoy, Na STLMLC STLMLC [id number] 2 Common 12:49:56 [id number] [facility] 2021-12-09 Outpatient Mccoy, Na STLMLC STLMLC [id number] 2 Common 12:36:00 [id number] [facility] 2021-12-09 Outpatient Mccoy, Na STLMLC STLMLC [id number] 2 Common 12:33:13 [id number] [facility] 2021-12-09 Outpatient Mccoy, Na STLMLC STLMLC [id number] 2 Common 12:32:16 [id number] [facility] 2021-12-09 Outpatient Mccoy, Na STLMLC STLMLC [id number] 2 Common 12:11:40 [id number] [facility] 2021-12-09 Outpatient Mccoy, Na STLMLC STLMLC [id number] 2 Common 12:07:56 [id number] [facility] 2021-12-09 Outpatient Mccoy, Na STLMLC STLMLC [id number] 2 Common 11:43:48 [id number] [facility] 2021-12-09 Outpatient Mccoy, Na STLMLC STLMLC [id number] 2 Common 11:39:42 [id number] [facility] 2023-11-24 2023-11-24 Outpatient KADIE [facility] [id number] [facility] 00:00:00 00:00:00 NBA fraga of Medicin e 2023-02-02 2023-02-02 Outpatient TEJA [facility] [id number] [facility] 00:00:00 00:00:00 LEAHNGERITA Shelton ege of Medicin e 2022-12-03 2022-12-03 (TEL) STLMLC STLMLC [id number] Co mmon 00:00:00 00:00:00 [facility] 2022-11-30 2022-11-30 (TEL) STLMLC STLMLC [id number] Co mmon 00:00:00 00:00:00 [facility] 2022-11-25 2022-11-[address] [facility] [id number] [facility] 13:00:00 14:58:48 Visit Nba Jackson [id number] Co llege [id number] of [id number] Medi christopher 506 e 2022-10-29 2022-10-29 (TEL) STLMLC STLMLC [id number] Co mmon 00:00:00 00:00:00 [facility] 2022-10-22 2022-10-22 (TEL) STLMLC STLMLC [id number] Co mmon 00:00:00 00:00:00 [facility] 2022 2022 (TEL) STLMLC STLMLC [id number] Co mmon 00:00:00 00:00:00 [facility] 2022-10-06 2022-10-06 (TEL) STLMLC STLMLC [id number] Co mmon 00:00:00 00:00:00 [facility] 2022-10-06 2022-10-06 OFFICE STLMLC STLMLC [id number] Co mmon 00:00:00 00:00:[address] 2022-10-05 2022-10-05 (TEL) STLMLC STLMLC [id number] Co mmon 00:00:00 00:00:00 [facility] 2022-09-14 2022-09-14 (TEL) STLMLC STLMLC [id number] Co mmon 00:00:00 00:00:00 [facility] 2022-07-29 2022-07-29 (TEL) STLMLC STLMLC [id number] Co mmon 00:00:00 00:00:00 [facility] 2022-07-28 2022-07-28 Outpatient DONI EL [facility] [id number] [address] [place] [address] 09:05:37 16:32:46 LEAH urrutia of Medicin e 2022-07-16 2022-07-16 (TEL) STLMLC STLMLC [id number] Co mmon 00:00:00 00:00:00 [facility] 2022-07-14 2022-07-14 (TEL) STLMLC STLMLC [id number] Co mmon 00:00:00 00:00:00 [facility] 2022-07-13 2022-07-13 OFFICE STLMLC STLMLC [id number] Co mmon 00:00:00 00:00:00 VISIT [facility] 4 [facility] 2022-06-29 2022-06-29 (TEL) STLMLC STLMLC [id number] Co mmon 00:00:00 00:00:00 [facility] 2022-06-23 2022-06-23 OFFICE STLMLC STLMLC [id number] Co mmon 00:00:00 00:00:00 VISIT EST Spir it PT LEVEL 3 [facility] 2022-06-22 2022-06-22 (TEL) STLMLC STLMLC [id number] Co mmon 00:00:00 00:00:00 [facility] 2022-06-02 2022-06-02 (TEL) STLMLC STLMLC [id number] Co mmon 00:00:00 00:00:00 [facility] 2022-06-02 2022-06-02 OFFICE STLMLC STLMLC [id number] Co mmon 00:00:00 00:00:00 VISIT [facility] PT - [facility] LEVEL 4 [facility] 2022-04-02 2022-04-02 (TEL) STLMLC STLMLC [id number] Co mmon 00:00:00 00:00:00 [facility] 2022-04-01 2022-04-01 OFFICE STLMLC STLMLC [id number] Co mmon 00:00:00 00:00:00 VISIT NEW Spir it PT LEVEL 4 - [facility] 2022-03-24 2022-03-24 OFFICE STLMLC STLMLC [id number] Co mmon 00:00:00 00:00:00 VISIT [facility] it PT LEVEL 3 [facility] 2022-03-19 2022-03-19 (TEL) STLMLC STLMLC [id number] Co mmon 00:00:00 00:00:00 [facility] 2022-03-12 2022-03-12 (TEL) STLMLC STLMLC [id number] Co mmon 00:00:00 00:00:00 [facility] 2022-03-08 2022-03-08 (TEL) STLMLC STLMLC [id number] Co mmon 00:00:00 00:00:00 [facility] 2022-03-04 2022-03-04 (TEL) STLMLC STLMLC [id number] Co mmon 00:00:00 00:00:00 [facility] - [facility] 2022-03-02 2022-03-02 OFFICE STLMLC STLMLC [id number] Co mmon 00:00:00 00:00:00 VISIT [facility] ESTAB PT - CHI LEVEL 2 [facility] 2022-02-10 2022-02-10 (TEL) STLMLC STLMLC [id number] Co mmon 00:00:00 00:00:00 [facility] 2022-02-10 2022-02-10 OFFICE STLMLC STLMLC [id number] Co mmon 00:00:00 00:00:00 VISIT [facility] ESTAB PT - CHI LEVEL 4 [facility] 2022-01-27 2022-01-27 Outpatient [facility] [id number] [facility] 08:30:50 11:41:46 Colleg e of Medicin e 2022-01-27 2022-01-27 Outpatient TEJA [facility] [id number] [facility] 08:31:18 10:42:49 LEAH Nikita ege of Medicin e 2022-01-14 2022-01-14 (TEL) STLMLC STLMLC [id number] Co mmon 00:00:00 00:00:00 [facility] - [facility] 2021-10-29 2021-10-29 OFFICE STLMLC STLMLC [id number] Co mmon 00:00:00 00:00:00 VISIT [facility] ESTAB PT - CHI LEVEL 4 [facility] 2021-10-21 2021-10-21 Outpatient TEJA [facility] [id number] [facility] 09:21:49 10:40:52 LEAH Nikiat ege of Medicin e 2021-10-21 2021-10-21 (TEL) STLMLC STLMLC [id number] Co mmon 00:00:00 00:00:00 [facility] - [facility] 2021-10-02 2021-10-02 OFFICE STLMLC STLMLC [id number] Co mmon 00:00:00 00:00:00 VISIT EST Spir it PT LEVEL 3 - [facility] 2021-10-01 2021-10-01 (TEL) STLMLC STLMLC [id number] Co mmon 00:00:00 00:00:00 [facility] 2021-08-19 2021-08-19 (TEL) STLMLC STLMLC [id number] Co mmon 00:00:00 00:00:00 [facility] 2021-07-30 2021-07-30 OFFICE STLMLC STLMLC [id number] Co mmon 00:00:00 00:00:00 VISIT [facility] PT [facility] LEVEL 4 [facility] 2021-07-13 2021-07-13 Outpatient STLMLC STLMLC [id number] Common 00:00:00 00:00:00 [facility] 2021-07-08 2021-07-08 Outpatient DONI LE [facility] [id number] [facility] 10:18:53 11:40:29 LEAH fritze of Medicin e 2021-07-06 2021-07-06 Outpatient STLMLC STLMLC [id number] Common 00:00:00 00:00:00 [facility] 2021-07-01 2021-07-01 Outpatient STLMLC STLMLC [id number] Common 00:00:00 00:00:00 [facility] 2021-06-01 2021-06-01 Outpatient STLMLC STLMLC [id number] Common 00:00:00 00:00:00 [facility] 2021-04-29 2021-04-29 Outpatient STLMLC STLMLC [id number] Common 00:00:00 00:00:00 [facility] 2021-03-10 2021-03-10 Outpatient STLMLC STLMLC [id number] Common 00:00:00 00:00:00 [facility] 2021-03-05 2021-03-05 Outpatient STLMLC STLMLC [id number] Common 00:00:00 00:00:00 [facility] 2021-02-17 2021-02-17 Outpatient STLMLC STLMLC [id number] Common 00:00:00 00:00:00 [facility] 2021-02-16 2021-02-16 Outpatient STLMLC STLMLC [id number] Common 00:00:00 00:00:00 [facility] 2021-02-12 2021-02-12 Outpatient STLMLC STLMLC [id number] Common 00:00:00 00:00:00 [facility] 2021-02-11 2021-02-11 Outpatient STLMLC STLMLC [id number] Common 00:00:00 00:00:00 [facility] 2021-01-21 2021-01-21 Outpatient STLMLC STLMLC [id number] Common 00:00:00 00:00:00 [facility] 2021-01-02 2021-01-02 Outpatient STLMLC STLMLC [id number] Common 00:00:00 00:00:00 [facility] 2020-10-24 2020-10-24 Outpatient STLMLC STLMLC [id number] Common 00:00:00 00:00:00 [facility] 2020-10-07 2020-10-07 Outpatient STLMLC STLMLC [id number] Common 00:00:00 00:00:00 [facility] 2020-10-07 2020-10-07 Outpatient STLMLC STLMLC [id number] Common 00:00:00 00:00:00 [facility] 2020-10-07 2020-10-07 Outpatient STLMLC STLMLC [id number] Common 00:00:00 00:00:00 [facility] 2020-08-27 2020-08-27 Outpatient STLMLC STLMLC [id number] Common 00:00:00 00:00:00 [facility] 2020-07-23 2020-07-23 [facility] [id number] Common 08:40:00 08:40:[address] [employer] [address] [facility] 2020-07-22 2020-07-22 [facility] [id number] Common 17:01:00 17:01:00 [place] [address] [facility] 2020-07-07 2020-07-07 [facility] [id number] Common 16:22:00 16:22:00 [place] [address] [facility] 2020-07-04 2020-07-04 [facility] [id number] Common 11:20:00 11:20:00 [place] [address] [facility] 2020-07-04 2020-07-04 [facility] [id number] Common 08:10:00 08:10:00 [place] [address] [facility] 2020-04-22 2020-04-22 [facility] [place] [id number] Common 13:20:00 13:20:00 [place] [address] [facility] 2019-11-21 2019-11-21 Office ESTEBAN Le [id number] 14:51:13 16:43:49 Visit Leah AMBULATOR [id number] Y [id number] [facility] 2019-11-21 2019-11-21 Office ESTEBAN Le [id number] [place] [address] 14:51:13 16:43:49 Visit Leah AMBULATOR [id number] College Y [id number] of [id number] [facility] 300 e 2019-10-23 2019-10-23 [facility] [place] [id number] Common 13:20:00 13:20:00 [place] [address] [facility] 2019-08-02 2019-08-02 [facility] [id number] Common 10:02:00 10:02:00 [place] [address] [facility] 2019-07-25 2019-07-25 [facility] [id number] Common 09:40:00 09:40:00 [place] [address] [facility] 2019-05-22 2019-05-22 [facility] [id number] Common 09:20:00 09:20:00 [place] [address] [facility] 2019-04-24 2019-04-24 [facility] [id number] Common 09:40:00 09:40:00 [place] [address] [facility] 2019-02-01 2019-02-01 [facility] [id number] Common 09:30:00 09:30:00 [place] [address] [facility] 2019-01-16 2019-01-16 [facility] [id number] Common 09:25:00 09:25:00 [place] [address] [facility] 2018-12-18 2018-12-18 [facility] [id number] Common 13:34:00 13:34:00 [place] [address] [facility] 2018-12-18 2018-12-18 [facility] [id number] Common 09:00:00 09:00:00 [place] [address] [facility] 2018-12-15 2018-12-15 [facility] [id number] Common 10:47:00 10:47:00 [place] [address] [facility] 2018-10-24 2018-10-24 [facility] [id number] Common 08:30:00 08:30:00 [place] [address] [facility] Results Test Description Test Time Test Comments Results Result Comments Source CBC W/AUTO DIFF WITH PLATELETS 2022-11-25 19:52:16 Test Item Value Reference Range Interpretation Comme nts WHITE BLOOD CELL COUNT (test See_Comment [Automated message] The system code = 13478-9) which genera howard this result transmitted ref erence range: 3.5 - 11.0 K/UL . The reference range was not u sed to interpret this result as normal/abnormal. RED BLOOD CELL COUNT (test See_Comment L [Automated message] The system code = 13272-1) which genera howard this result transmitted ref [...] (test code = 35.3 % 40.0-51.0 L 06368-0) MEAN CORPUSCULAR VOLUME (test 92.2 fL 80.0-99.0 code = 27001-7) MEAN CORPUSCULAR HEMOGLOBIN 31.1 PG 25.0-33.0 (test code = 19079-8) MEAN CORPUSCULAR HEMOGLOBIN See_Comment [Automated message] The system CONC (test code = 69349-9) w hich generated this result transmitted ref erence range: 31.0 - 36.0 G/D L. The reference range was not u sed to interpret this result as normal/abnormal. RED CELL DISTRIBUTION WIDTH 12.9 % 11.5-15.0 (test code = 17967-8) NEUTROPHILS % (test code = 64 % 45575-1) LYMPHOCYTES % (test code = 23 % 65278-6) MONOCYTES % (test code = 11 % 77286-4) EOSINOPHILS % (test code = 1 % 98471-0) BASOPHILS % (test code = 0 % 32597-4) PLATELET COUNT (test code = See_Comment TESTING PERFORMED AT CLINICAL 84118-5) [facility] [address], [address] [place], [place] [address] CLIA NO. [id number] [Aut omated message] The system whic h generated this result transmit howard reference range: 130 - 40 0 K/UL. The reference range was not used to interpret this result as normal/abnormal . NEUTROPHILS ABSOLUTE COUNT See_Comment [Automated message] The system (test code = 36724-9) which generated this result transmitted ref erence range: 1.50 - 7.50 K/U L. The reference range was not u sed to interpret this result as normal/abnormal. LYMPHOCYTES ABSOLUTE COUNT See_Comment L [Automated message] The system (test code = 59304-4) which generated this result transmitted ref erence range: 1.00 - 4.00 K/U L. The reference range was not u sed to interpret this result as normal/abnormal. MONOCYTES ABSOLUTE COUNT See_Comment [A utomated message] The system (test code = 33607-2) which generated this result transmitted ref erence range: 0.20 - 1.00 K/U L. The reference range was not u sed to interpret this result as normal/abnormal. BASOPHILS ABSOLUTE COUNT See_Comment Un less Otherwise Indicated, (test code = 20049-8) All Te sting Performed At: [facility], [address] [facility], [place] [address] Still Operator Helper: Elliott Singh [id number] [place]. [id number] [Automated mess age] The system which generated this result transmitted ref erence range: 0.00 - 0.20 K/U L. The reference range was not u sed to interpret this result as normal/abnormal. CORA (test code = CORA) PT FASTING Lab Interpretation (test code Abnormal = 95357-0) [facility] [id number] 12:08:02 Test Item Value Reference Range Interpretation Comments CULTURE, SPECIMEN NUMBER: CULTURE, URINE/SENSITIV [id number] URINE/SENSITI VITY ON ITY ON ALL ALL SPECIMEN NU MBER: (test code = 025102026 SPECI MEN 2236) COMMENT: URINE SOURCE: URINE REPORT ST ATUS: FINAL FINAL REP ORT: 11/24/2019 NO G ROWTH AFTER 36 HOURS INCUBATION Unle ss Otherwise Indic ated, All Testing Per formed At: [facility], [address] [place] [address] Laborator y Director: Elliott Singh Number [id number] [place]. [id number] [facility] [id number] 17:32:00Surgical Pathology Report Case: [id number] Authorizing Provider: Leah Le MD Collected: 10/30/2019 [...] BY TUMOR Signing Pathologist Direct Phone Line: [phone] signed by Yan Hays MD on 11/02/2019 at 5:32 PMThe invasive component represents no more than 5% of the total tumor mass. [id number] X 2Preoperative and postoperative diagnoses: bladder tumorA. Urinary bladder, TUR tissue. B. Urinary bladder, TUR tissue A. Received in formalin labeled with the patient's name, accession number and "urinary bladder, TUR tissue, right lateral wall tumor" is a _5 x 6.7 x 1.6 cm aggregate of irregular ware-brown to ware-pink pieces oftissue admixed with blood clot. The specimen is [...] entirely submitted in cassettes B1-AB. JG/ewPerformed. POCT-GLUCOSE [id number] 06:24:00 Test Item Value Reference Range Interpretation Comments POC-GLUCOSE METER 76 mg/dL 70-110 : TESTED A T [facility] 6720 (CHANDLER) (test code = [place], 1538) [address]: Hand Paint Mixer/Techni jordana ID = [id number] for SEBASTIAN VALLE PH
[2022-12-14] MEDS ORDERED: LIDOCAINE VISCOUS 2% SOLN 15 ML UDC ONE (04:16)
[2022-12-14] MEDS ORDERED: PHENAZOPYRIDINE 100MG TAB PO ONE (04:17)
[2022-12-14] MEDS ORDERED: SMZ./TMP. 800/160 MG TABLET ONE (04:17)
[2022-12-14] MEDS ORDERED: ONDANSETRON 4 MG (ODT) TAB ONE (04:18)
--- NOTE | 2022-12-14 04:18 | EDPHYS ---
Physician Documentation [facility] Name: Noah Whyte Age: 82 yrs Sex: Male : 1940 Arrival Date: 12/14/2022 Time: 03:20 Bed 13 Private MD: ED Physician Wally Chaves HPI: 12/14 04:12 This 82 yrs old Male presents to ER via Ambulatory with complaints of larry CATHETER DISCOMFORT, Nausea. 04:12 The patient presents to the emergency department with nausea, that is mild, vomiting, larry that is continuous. Onset: The symptoms/episode began/occurred just prior to arrival. Possible causes: delong. The symptoms are aggravated by nothing. The symptoms are alleviated by nothing. Associated signs and symptoms: The patient has no apparent associated signs or symptoms. Severity of symptoms: At their worst the symptoms were mild in the emergency department the symptoms are unchanged. The patient has experienced similar episodes in the past, a few times. Historical: - Allergies: 03:37 Clarithromycin; aa9 03:37 Levofloxacin; aa9 - PMHx: 03:37 Anemia; Bladder Tumor - Cancer; GERD; High Cholesterol; Hypertension; Hypothyroidism; aa9 - PSHx: 03:37 back; cataract repair; TURP; aa9 - Immunization history:: Client reports receiving the 2nd dose of the Covid vaccine. - Social history:: Smoking status: Patient denies any tobacco usage or history of. ROS: 04:13 Constitutional: Negative for fever, chills, and weight loss, Eyes: Negative for injury, larry pain, redness, and discharge, ENT: Negative for injury, pain, and discharge, Neck: Negative for injury, pain, and swelling, Cardiovascular: Negative for chest pain, palpitations, and edema, Respiratory: Negative for shortness of breath, cough, wheezing, and pleuritic chest pain, Back: Negative for injury and pain, MS/Extremity: Negative for injury and deformity, Skin: Negative for injury, rash, and discoloration, Neuro: Negative for headache, weakness, numbness, tingling, and seizure, Psych: Negative for depression, anxiety, suicide ideation, homicidal ideation, and hallucinations, Allergy/Immunology: Negative for hives, rash, and allergies, Endocrine: Negative for neck swelling, polydipsia, polyuria, polyphagia, and marked weight changes, Hematologic/Lymphatic: Negative for swollen nodes, abnormal bleeding, and unusual bruising. 04:13 Abdomen/GI: Positive for nausea and vomiting. Exam: 04:13 Constitutional: This is a well developed, well nourished patient who is awake, alert, larry and in no acute distress. Head/Face: Normocephalic, atraumatic. Eyes: Pupils equal round and reactive to light, extra-ocular motions intact. Lids and lashes normal. Conjunctiva and sclera are non-icteric and not injected. Cornea within normal limits. Periorbital areas with no swelling, redness, or edema. ENT: Nares patent. No nasal discharge, no septal abnormalities noted. Tympanic membranes are normal and external auditory canals are clear. Oropharynx with no redness, swelling, or masses, exudates, or evidence of obstruction, uvula midline. Mucous membranes moist. Neck: Trachea midline, no thyromegaly or masses palpated, and no cervical lymphadenopathy. Supple, full range of motion without nuchal rigidity, or vertebral point tenderness. No Meningismus. Chest/axilla: Normal chest wall appearance and motion. Nontender with no deformity. No lesions are appreciated. Cardiovascular: Regular rate and rhythm with a normal S1 and S2. No gallops, murmurs, or rubs. Normal PMI, no JVD. No pulse deficits. Respiratory: Lungs have equal breath sounds bilaterally, clear to auscultation and percussion. No rales, rhonchi or wheezes noted. No increased work of breathing, no retractions or nasal flaring. Abdomen/GI: Soft, non-tender, with normal bowel sounds. No distension or tympany. No guarding or rebound. No evidence of tenderness throughout. Back: No spinal tenderness. No costovertebral tenderness. Full range of motion. Skin: Warm, dry with normal turgor. Normal color with no rashes, no lesions, and no evidence of cellulitis. 04:13 : Male external genitalia: normal, Bladder: is normal, Sexual behavior: the patient is not sexually active, a delong is noted, to gravity drainage, urine is clear. Vital Signs: 03:34 BP 134 / 71; Pulse 72; Resp 19 S; Temp 98.7(O); Pulse Ox 94% on R/A; Weight 71.67 kg aa9 (R); Height 5 ft. 8 in. (172.72 cm) (R); Pain 0/10; 03:34 Body Mass Index 24.02 (71.67 kg, 172.72 cm) aa9 MDM: 03:33 Patient medically screened. larry 04:15 Differential diagnosis: Nonspecific abd pain, UTI. Data reviewed: vital signs, nurses larry notes, lab test result(s), urinalysis. Consideration of Admission/Observation Patient was admitted/placed on observation. Escalation of care including admission/observation considered. I considered the following discharge prescriptions or medication management in the emergency department Medications were administered in the Emergency Department. See MAR. Test considered but Not performed: Labs: cbc comp met. CT: ct stone. 12/14 04:09 Order name: Delong: leave to bag; Complete Time: 05:06 larry Administered Medications: 04:26 Drug: Pyridium (phenazopyridine) 200 mg Route: PO; aa9 05:06 Follow up: Response: No adverse reaction aa9 04:26 Drug: Bactrim (trimethoprim-sulfamethoxazole) (160 mg-800 mg (DS) 1 tablet Route: PO; aa9 05:05 Follow up: Response: No adverse reaction aa9 04:26 Drug: Zofran (Ondansetron) 4 mg Route: PO; aa9 05:05 Follow up: Response: No adverse reaction aa9 05:05 Drug: Viscous Lidocaine Liquid (4 %) 10 ml {Note: used with urinary cath .} Route: aa9 Mucous Membrane; Disposition Summary: 12/14/22 04:17 Discharge Ordered Location: Home larry Problem: new larry Symptoms: have improved larry Condition: Stable larry Diagnosis - Other mechanical complication of urinary (indwelling) catheter - pain larry Followup: larry - With: Private Physician - When: 2 - 3 days - Reason: Recheck today's complaints, Continuance of care, Re-evaluation by your physician Followup: larry - With: Nazario Suero MD - When: 2 - 3 days - Reason: Recheck today's complaints, Continuance of care, Re-evaluation by your physician Discharge Instructions: - Discharge Summary Sheet larry - Indwelling Urinary Catheter Care, Adult larry - Indwelling Urinary Catheter Care, Adult, [id number] larry - Nausea and Vomiting, Adult larry - Nausea and Vomiting, Adult, [id number] larry Forms: - Medication Reconciliation Form larry - Thank You Letter larry - Antibiotic Education [facility] - Prescription Opioid Use [facility] Prescriptions: - Pyridium 200 mg Oral Tablet - take 1 tablet by ORAL route every 8 hours for 3 days; 9 tablet; Refills: 0, [facility] Product Selection Permitted - Restoril 7.5 mg Oral Capsule - take 2 capsule by ORAL route At bedtime As needed; 20 capsule; Refills: 0, [facility] Product Selection Permitted - Bactrim DS 800-160 mg Oral Tablet - take 1 tablet by ORAL route every 12 hours for 7 days; 14 tablet; Refills: 0, [facility] Product Selection Permitted - Zofran 4 mg Oral Tablet - take 1 tablet by ORAL route every 12 hours As needed; 20 tablet; Refills: 0, [facility] Product Selection Permitted Signatures: Wally Chaves MD MD cha Avalos, Aylin RN RN aa9
--- NOTE | 2022-12-14 04:18 | ER ---
Nurse's Notes [facility] Name: Noah Whyte Age: 82 yrs Sex: Male : 1940 Arrival Date: 12/14/2022 Time: 03:20 Bed 13 Private MD: Diagnosis: Other mechanical complication of urinary (indwelling) catheter-pain Presentation: 12/14 03:34 Chief complaint: Patient states: I had a urinary cath placed earlier tonight, I just aa9 feel like I have to pee constantly,like I can't sleep or rest at all. I feel a little nausea as well. Coronavirus screen: Vaccine status: Patient reports receiving the 2nd dose of the covid vaccine. moderna. Ebola Screen: No symptoms or risks identified at this time. Initial Sepsis Screen: Does the patient meet any 2 criteria? No. Patient's initial sepsis screen is negative. Does the patient have a suspected source of infection? No. Patient's initial sepsis screen is negative. Risk Assessment: Do you want to hurt yourself or someone else? Patient reports no desire to harm self or others. Onset of symptoms was December 14, 2022. 03:34 Method Of Arrival: Ambulatory aa9 03:34 Acuity: JAIMIE 4 aa9 Triage Assessment: 03:37 General: Appears in no apparent distress. uncomfortable, slender, Behavior is aa9 cooperative, anxious. Pain: Denies pain. Cardiovascular: Patient's skin is warm and dry. Respiratory: Airway is patent Respiratory effort is even, unlabored. GI: Reports nausea. : Kulkarni in place to gravity drainage Reports urinary frequency. Derm: Skin is intact, is thin. Historical: - Allergies: 03:37 Clarithromycin; aa9 03:37 Levofloxacin; aa9 - PMHx: 03:37 Anemia; Bladder Tumor - Cancer; GERD; High Cholesterol; Hypertension; Hypothyroidism; aa9 - PSHx: 03:37 back; cataract repair; TURP; aa9 - Immunization history:: Client reports receiving the 2nd dose of the Covid vaccine. - Social history:: Smoking status: Patient denies any tobacco usage or history of. Screenin:06 [facility] ED Fall Risk Assessment (Adult) History of falling in the last 3 months, aa9 including since admission No falls in past 3 months (0 pts) Confusion or Disorientation No (0 pts) Intoxicated or Sedated No (0 pts) Impaired Gait Yes (1 pt) Mobility Assist Device Used Yes (1 pt) Altered Elimination No (0 pt) Score/Fall Risk Level 3 or more points = High Risk Maintained a safe environment, Educated pt \T\ family on fall prevention, incl call for assistance when getting out of bed. Abuse screen: Denies threats or abuse. Denies injuries from another. Nutritional screening: No deficits noted. Tuberculosis screening: No symptoms or risk factors identified. Vital Signs: 03:34 BP 134 / 71; Pulse 72; Resp 19 S; Temp 98.7(O); Pulse Ox 94% on R/A; Weight 71.67 kg aa9 (R); Height 5 ft. 8 in. (172.72 cm) (R); Pain 0/10; 03:34 Body Mass Index 24.02 (71.67 kg, 172.72 cm) aa9 ED Course: 03:20 Patient arrived in ED. ag3 03:33 Wally Chaves MD is Attending Physician. larry 03:37 Triage completed. aa9 03:38 Arm band placed on. aa9 04:12 Magali France, KORI is Primary Nurse. aa9 04:17 Nazario Suero MD is Referral Physician. larry 05:06 No provider procedures requiring assistance completed. Kulkarni cath inserted, using aa9 sterile technique, 16 Fr., by wy, balloon inflated, to gravity drainage, returned clear yellow urine. Patient tolerated well. Patient did not have IV access during this emergency room visit. 05:07 Patient has correct armband on for positive identification. Side rails up X2. aa9 Administered Medications: 04:26 Drug: Pyridium (phenazopyridine) 200 mg Route: PO; aa9 05:06 Follow up: Response: No adverse reaction aa9 04:26 Drug: Bactrim (trimethoprim-sulfamethoxazole) (160 mg-800 mg (DS) 1 tablet Route: PO; aa9 05:05 Follow up: Response: No adverse reaction aa9 04:26 Drug: Zofran (Ondansetron) 4 mg Route: PO; aa9 05:05 Follow up: Response: No adverse reaction aa9 05:05 Drug: Viscous Lidocaine Liquid (4 %) 10 ml {Note: used with urinary cath .} Route: aa9 Mucous Membrane; Medication: 05:07 VIS not applicable for this client. aa9 Outcome: 04:17 Discharge ordered by . larry 05:07 Discharged to home ambulatory, with family. aa9 05:07 Condition: stable 05:07 Discharge instructions given to patient, family, Instructed on discharge instructions, follow up and referral plans. medication usage, Demonstrated understanding of instructions, follow-up care, medications, Prescriptions given X 4. 05:07 Patient left the ED. aa9 Signatures: Wally Chaves MD MD cha Gomez, Alice ag3 Avalos, Aylin, RN RN aa9
[2022-12-14 05:12] VITALS: BP 134/71; TEMP 98.7; O2SAT 94
== END 2022-12-14 05:07 | disposition home or self-care (01) ==
LOC: ER 03:17
DX: T83.098A Other mechanical complication of other urinary catheter, initial encounter (principal); R11.2 Nausea with vomiting, unspecified; Z85.51 Personal history of malignant neoplasm of bladder; Z88.1 Allergy status to other antibiotic agents; Z88.3 Allergy status to other anti-infective agents
CPT/HCPCS: Q0162

== ENCOUNTER 2023-05-21 20:39 | Emergency (ER) | payer OTHER ==
--- OUTSIDE RECORDS SUMMARY | 2023-05-21 20:49 | XMS REPORT | Continuity of Care Document ---
:1940 Author Organization [facility] t Address [address] [place] [address] [address] [place] [address] Care Team Providers Name Role Phone TRUDY NEFF Primary Care Physician Unavailable Katie Perez Attending Clinician Unavailable Trudy Neff Attending Clinician Unavailable NBA LANCE Attending Clinician Unavailable Nba Lance MD Attending Clinician Leah Lezama MD Attending Clinician LEAH LEZAMA Attending Clinician Unavailable LEAH LEZAMA Admitting Clinician Unavailable Payers Payer Name Policy Type Policy Number Effective Date Expiration Date S malika [employer] MEDICARE [id number] 2018 ADV 00:00:00 [facility] HealthSelect 1 [id number] 2022 Common TRS/ERS MCR PPO 00:00:00 [facility] Problems Condition Condition Condition Status Onset Resolution Last Treating Co mments Source Name Details Category Date Date Treatment Clinician Date 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 Prediabete Prediabete Problem C ommon s s Spirit - [facility] [id number] Acute Problem Common right-side Spirit d back - [facility] pain with St sciatica [facility] 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 - [facility] Elevated Elevated Problem Commo n PSA prostate Spirit specific - [facility] antigen St [PSA] [facility] Foreign Foreign Problem Common body in body in Spirit left ear left ear, - [facility]I initial [facility] [id number] Pneumococc Problem Co mmon al Spirit vaccinatio - [facility] n [facility] ed at Medical current Center visit Primary Primary Problem Common generalise generalize Sp kacy d d - [facility] osteoarthr [facility]osteo[facility] [id number] Gastro-eso Problem Co mmon phageal Spirit reflux - CHI disease [facility] esophagiti Medica l s [place]ie Hypertensi HTN Problem Commo n on (hypertens Spirit ion) - [facility] Allergic Allergic Problem Commo n rhinitis rhinitis, Spiri t unspecifie - [facility]I d [facility] y, Medical unspecifie Center d trigger History of History of Problem C ommon insect insect Spirit sting sting - [facility]I allergy allergy [facility] Hyperlipid Hyperlipid Problem C ommon emia emia Spirit - [facility] [id number] Dizziness Problem Com mon [facility] - [facility] [id number] Leukocytop Problem Com mon enia, Spirit unspecifie - CHI d [facility] Iron Iron Problem Common deficiency deficiency Sp kacy anemia anemia, - CHI unspecifie [facility] iron [facility] deficiency Medica l anemia Center type [id number] Controlled Problem Co mmon type 2 Spirit diabetes - [facility] mellitus [facility] complicati Medica l , Center without long-term current use of insulin [id number] Lymphangit Problem Comm on is Spirit - [facility] [id number] Mass of Problem Commo n urinary Spirit bladder - [facility] [id number] Medication Problem Co mmon side Spirit effect - 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 [id number] Lumbago Problem Commo n with Spirit sciatica, [facility] left side [facility] [id number] Lumbago Problem Comm on with Spirit sciatica, [facility] right side [facility] [id number] Dupuytren Problem Com mon contractur Spirit e [facility] [id number] Pernicious Problem Com mon anemia Spirit [facility] [id number] Diverticul Problem Co mmon osis Spirit - 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 - [facility] spine [facility] Allergies, Adverse Reactions, Alerts Allergy Allergy Status Severity Reaction(s) Onset Inactive Treating Comm ents Source Name Type Date Date Clinician Levoflox Drug Active 2018-[address] [facility]era 12[facility] Center LEVOFLOX Allergy Active 2018-11 [facility] ACIN 12-25 00:00: 00 ganesh andersen Active diarrhea, Com mon omycin omycin bad taste, Spirit dizziness [facility] [id number] Drug Active severe leg Common allergy cramps [facility] Social History Social Habit Start Date Stop Date Quantity Comments Source History of Common Spirit - Tobacco Use [facility] Alcohol intake 2019-10-31 2019-10-31 Current drinker [facility] S [facility] 00:00:00 00:00:00 of alcohol Medical Center (finding) Tobacco use and 2019-10-29 2019-10-29 [address] [facility] exposure 00:00:00 00:00:00 non-user Medical Center Sex Assigned At [birth year] M [facility] 00:00:00 00:00:00 Medical Center Smoking Status Start Date Stop Date Source Never Smoker [facility] Medications Ordered Filled Start Stop Current Ordering Indication Dosage Frequency Signature Comments Components Source Medication Medication Date Date Medication? Clinician (SIG) Name Name Ferrous Ferrous 2021-11 No 1{table QD Ferrous [...] MG 00 :00 s_neede d} Toradol Toradol 0 No 15mg Common (Ketorolac) (Ketorolac) 8-10 S pirit 00:00: - [facility] 0 No 40mg Common (Triamcinol (Triamcinol 8-10 S pirit one) one) 00:00: - [facility] Toradol Toradol 0 No 15mg Common (Ketorolac) (Ketorolac) 8-10 S pirit 00:00: - [facility] Kenalog 0 No 40mg Common (Triamcinol (Triamcinol 8-10 S pirit one) one) 00:00: - [facility] Toradol Toradol 2021-0 No 15mg Common (Ketorolac) (Ketorolac) 8-10 S pirit 00:00: - [facility] Kenalog No 40mg Common (Triamcinol (Triamcinol 8-10 S pirit one) one) 00:00: - CHI 00 [facility] Toradol Toradol 2021-0 No 15mg Common (Ketorolac) (Ketorolac) 8-10 S pirit 00:00: - CHI 00 [facility] Kenalog Kenalog 2021-0 No 40mg Common (Triamcinol (Triamcinol 8-10 S pirit one) one) 00:00: - [facility]I 00 [facility] Toradol Toradol 2021-0 No 15mg Common (Ketorolac) (Ketorolac) 8-10 S pirit 00:00: - CHI 00 [facility] Kenalog Kenalog 2021-0 No 40mg Common (Triamcinol (Triamcinol 8-10 S pirit one) one) 00:00: - [facility]I 00 [facility] Toradol Toradol 2021-0 No 15mg Common (Ketorolac) (Ketorolac) 8-10 S pirit 00:00: - CHI 00 [facility] Kenlorelei Kenalog 2021-0 No 40mg Common (Triamcinol (Triamcinol 8-10 S pirit one) one) 00:00: - [facility]I 00 [facility] Toradol Toradol 2021-0 No 15mg Common (Ketorolac) (Ketorolac) 8-10 S pirit 00:00: - CHI 00 [facility] Kenalog Kenalog 2021-0 No 40mg Common (Triamcinol (Triamcinol 8-10 S pirit one) one) 00:00: - CHI 00 [facility] Toradol Toradol 2021-0 No 15mg Common (Ketorolac) (Ketorolac) 8-10 S pirit 00:00: - CHI 00 [facility] Kenalog Kenalog 2021-0 No 40mg Common (Triamcinol (Triamcinol 8-10 S pirit one) one) 00:00: - CHI 00 [facility] Toradol Toradol 2021-0 No 15mg Common (Ketorolac) (Ketorolac) 8-10 S pirit 00:00: - CHI 00 [facility] Kenalog Kenalog 2021-0 No 40mg Common (Triamcinol (Triamcinol 8-10 S pirit one) one) 00:00: - CHI 00 [facility] Toradol Toradol 2021-0 No 15mg Common (Ketorolac) (Ketorolac) 8-10 S pirit 00:00: - CHI 00 [facility] Kenalog Kenalog 2021-0 No 40mg Common (Triamcinol (Triamcinol 8-10 S pirit one) one) 00:00: - CHI 00 [facility] Toradol Toradol 2021-0 No 15mg Common (Ketorolac) (Ketorolac) 8-10 S pirit 00:00: - CHI 00 [facility] Kenalog Kenalog 2021-0 No 40mg Common (Triamcinol (Triamcinol 8-10 S pirit one) one) 00:00: - CHI 00 [facility] Toradol Toradol 2021-0 No 15mg Common (Ketorolac) (Ketorolac) 8-10 S pirit 00:00: - CHI 00 [facility] Kenalog Kenalog 2021-0 No 40mg Common (Triamcinol (Triamcinol 8-10 S pirit one) one) 00:00: - CHI 00 [facility] Toradol Toradol 2021-0 No 15mg Common (Ketorolac) (Ketorolac) 8-10 S pirit 00:00: - CHI 00 [facility] Kenalog Kenalog 2021-0 No 40mg Common (Triamcinol (Triamcinol 8-10 S pirit one) one) 00:00: - [facility]I 00 [facility] Toradol Toradol 2021-0 No 15mg Common (Ketorolac) (Ketorolac) 8-10 S pirit 00:00: - CHI 00 [facility] Kenalog Kenalog 2021-0 No 40mg Common (Triamcinol (Triamcinol 8-10 S pirit one) one) 00:00: - [facility]I 00 [facility] Toradol Toradol 2021-0 No 15mg Common (Ketorolac) (Ketorolac) 8-10 S pirit 00:00: - [facility] Kenalog Kenalog 2021-0 No 40mg Common (Triamcinol (Triamcinol 8-10 S pirit one) one) 00:00: - [facility]I 00 [facility] Toradol Toradol 2021-0 No 15mg Common (Ketorolac) (Ketorolac) 8-10 S pirit 00:00: - CHI 00 [facility] Kenalog Kenalog 2021-0 No 40mg Common (Triamcinol (Triamcinol 8-10 S pirit one) one) 00:00: - CHI 00 [facility] Toradol Toradol 2021-0 No 15mg Common (Ketorolac) (Ketorolac) 8-10 S pirit 00:00: - CHI 00 [facility] Kenalog Kenalog 2021-0 No 40mg Common (Triamcinol (Triamcinol 8-10 S pirit one) one) 00:00: - CHI 00 [facility] methylPREDN methylPREDN 2021-0 2- No QD [...] (Betamethas 00:00: - CHI one) one) 00 [facility] Celestone Celestone 2021-0 No 6mg Com mon Soluspan Soluspan 5-19 Spirit (Betamethas (Betamethas 00:00: - CHI one) one) 00 [facility] Lidocaine Lidocaine 2021-0 No 10mg Com mon 5-19 Spirit 00:00: - CHI 00 [facility] Lidocaine Lidocaine 2021-0 No 10mg Com mon 5-19 Spirit 00:00: - CHI 00 [facility] Celestone Celestone 2021-0 No 6mg Com mon Soluspan Soluspan 5-19 Spirit (Betamethas (Betamethas 00:00: - CHI one) one) 00 [facility] Celestone Celestone 2021-0 No 6mg Com mon Soluspan Soluspan 5-19 Spirit (Betamethas (Betamethas 00:00: - CHI one) one) 00 [facility] Lidocaine Lidocaine 2-0 No 10mg Com mon - Spirit 00:00: - CHI 00 [facility] Lidocaine Lidocaine 2-0 No 10mg Com mon 5- Spirit 00:00: - CHI 00 [facility] Celestone Celestone 2021-0 No 6mg Com mon Soluspan Soluspan 5-19 Spirit (Betamethas (Betamethas 00:00: - CHI one) one) 00 [facility] Celestone Celestone 2021-0 No 6mg Com mon Soluspan Soluspan 5-19 Spirit (Betamethas (Betamethas 00:00: - CHI one) one) 00 [facility] Lidocaine Lidocaine 2021-0 No 10mg Com mon - Spirit 00:00: - CHI 00 [facility] Lidocaine Lidocaine 2-0 No 10mg Com mon - Spirit 00:00: - CHI 00 [facility] Celestone Celestone 2021-0 No 6mg Com mon Soluspan Soluspan 5-19 Spirit (Betamethas (Betamethas 00:00: - CHI one) one) 00 [facility] Celestone Celestone 2021-0 No 6mg Com mon Soluspan Soluspan 5-19 Spirit (Betamethas (Betamethas 00:00: - CHI one) one) 00 [facility] Lidocaine Lidocaine 2021-0 No 10mg Com 04-01 Spirit 00:00: - [facility]I 00 [facility] Lidocaine Lidocaine 2-0 No 10mg Com mon - Spirit 00:00: - CHI 00 [facility] Celestone Celestone 2-0 No 6mg Com mon Soluspan Soluspan 5-19 Spirit (Betamethas (Betamethas 00:00: - CHI one) one) 00 [facility] Celestone Celestone 2-0 No 6mg Com mon Soluspan Soluspan 5-19 Spirit (Betamethas (Betamethas 00:00: - CHI one) one) 00 [facility] Lidocaine Lidocaine 2-0 No 10mg Com mon - Spirit 00:00: - CHI 00 [facility] Lidocaine Lidocaine 2-0 No 10mg Com mon - Spirit 00:00: - CHI 00 [facility] Celestone Celestone 2021-0 No 6mg Com mon Soluspan Soluspan 5-19 Spirit (Betamethas (Betamethas 00:00: - CHI one) one) 00 [facility] Celestone Celestone 2021-0 No 6mg Com mon Soluspan Soluspan -19 Spirit (Betamethas (Betamethas 00:00: - CHI one) one) 00 [facility] Lidocaine Lidocaine 2-0 No 10mg Com mon 04-01 Spirit 00:00: - CHI 00 [facility] Lidocaine Lidocaine 2-0 No 10mg Com 04-01 Spirit 00:00: - CHI 00 [facility] Celestone Celestone 2021-0 No 6mg Com mon Soluspan Soluspan - Spirit (Betamethas (Betamethas 00:00: - CHI one) one) 00 [facility] Celestone Celestone 2021-0 No 6mg Com mon Soluspan Soluspan -19 Spirit (Betamethas (Betamethas 00:00: - CHI one) one) 00 [facility] Lidocaine Lidocaine 2-0 No 10mg Com 04-01 Spirit 00:00: - CHI 00 [facility] Lidocaine Lidocaine 2-0 No 10mg Com 04-01 Spirit 00:00: - CHI 00 [facility] Celestone Celestone 2021-0 No 6mg Com mon Soluspan Soluspan -19 Spirit (Betamethas (Betamethas 00:00: - CHI one) one) 00 [facility] Celestone Celestone 2021-0 No 6mg Com mon Soluspan Soluspan 5-19 Spirit (Betamethas (Betamethas 00:00: - CHI one) one) 00 [facility] Lidocaine Lidocaine 2-0 No 10mg Com mon 04-01 Spirit 00:00: - CHI 00 [facility] Lidocaine Lidocaine 2-0 No 10mg Com 04-01 Spirit 00:00: - CHI 00 [facility] Celestone Celestone 2-0 No 6mg Com mon Soluspan Soluspan 5-19 Spirit (Betamethas (Betamethas 00:00: - CHI one) one) 00 [facility] Celestone Celestone 2-0 No 6mg Com mon Soluspan Soluspan 5-19 Spirit (Betamethas (Betamethas 00:00: - CHI one) one) 00 [facility] Lidocaine Lidocaine 2-0 No 10mg Com mon - Spirit 00:00: - CHI 00 [facility] Lidocaine Lidocaine 2-0 No 10mg Com mon - Spirit 00:00: - CHI 00 [facility] Celestone Celestone 2021-0 No 6mg Com mon Soluspan Soluspan 5-19 Spirit (Betamethas (Betamethas 00:00: - CHI one) one) 00 [facility] Celestone Celestone 2021-0 No 6mg Com mon Soluspan Soluspan 5-19 Spirit (Betamethas (Betamethas 00:00: - CHI one) one) 00 [facility] Lidocaine Lidocaine 2-0 No 10mg Com mon - Spirit 00:00: - CHI 00 [facility] Lidocaine Lidocaine 2-0 No 10mg Com mon - Spirit 00:00: - CHI 00 [facility] Celestone Celestone 2-0 No 6mg Com mon Soluspan Soluspan 5-19 Spirit (Betamethas (Betamethas 00:00: - CHI one) one) 00 [facility] Celestone Celestone 2-0 No 6mg Com mon Soluspan Soluspan 5-19 Spirit (Betamethas (Betamethas 00:00: - CHI one) one) 00 [facility] Lidocaine Lidocaine 2-0 No 10mg Com mon 04-01 Spirit 00:00: - CHI 00 [facility] Lidocaine Lidocaine 2-0 No 10mg Com mon - Spirit 00:00: - CHI 00 [facility] Celestone Celestone 2-0 No 6mg Com mon Soluspan Soluspan 5-19 Spirit (Betamethas (Betamethas 00:00: - CHI one) one) 00 [facility] Lidocaine Lidocaine 2-0 No 10mg Com mon 04-01 Spirit 00:00: - CHI 00 [facility] Lidocaine Lidocaine 2-0 No 10mg Com mon - Spirit 00:00: - CHI 00 [facility] Celestone Celestone 2021-0 No 6mg Com mon Soluspan Soluspan 5-19 Spirit (Betamethas (Betamethas 00:00: - CHI one) one) 00 [facility] Celestone Celestone 2021-0 No 6mg Com mon Soluspan Soluspan 5-19 Spirit (Betamethas (Betamethas 00:00: - CHI one) one) 00 [facility] Lidocaine Lidocaine 2-0 No 10mg Com mon 04-01 Spirit 00:00: - CHI 00 [facility] Lidocaine Lidocaine 2-0 No 10mg Com mon 04-01 Spirit 00:00: - CHI 00 [facility] Celestone Celestone 2-0 No 6mg Com mon Soluspan Soluspan 5-19 Spirit (Betamethas (Betamethas 00:00: - CHI one) one) 00 [facility] Celestone Celestone 2021-0 No 6mg Com mon Soluspan Soluspan 5-19 Spirit (Betamethas (Betamethas 00:00: - CHI one) one) 00 [facility] Lidocaine Lidocaine 2-0 No 10mg Com 04-01 Spirit 00:00: - CHI 00 [facility] Lidocaine Lidocaine 2-0 No 10mg Com 04-01 Spirit 00:00: - CHI 00 [facility] Celestone Celestone 2-0 No 6mg Com mon Soluspan Soluspan 5-19 Spirit (Betamethas (Betamethas 00:00: - CHI one) one) 00 [facility] Celestone Celestone 2-0 No 6mg Com mon Soluspan Soluspan 5-19 Spirit (Betamethas (Betamethas 00:00: - CHI one) one) 00 [facility] Lidocaine Lidocaine 2-0 No 10mg Com mon 04-01 Spirit 00:00: - CHI 00 [facility] Lidocaine Lidocaine 2-0 No 10mg Com mon - Spirit 00:00: - CHI 00 [facility] Celestone Celestone 2021-0 No 6mg Com mon Soluspan Soluspan 5-19 Spirit (Betamethas (Betamethas 00:00: - CHI one) one) 00 [facility] Celestone Celestone 2021-0 No 6mg Com mon Soluspan Soluspan 5-19 Spirit (Betamethas (Betamethas 00:00: - CHI one) one) 00 [facility] Lidocaine Lidocaine 2021-0 No 10mg Com mon 04-01 Spirit 00:00: - CHI 00 [facility] Lidocaine Lidocaine 2021-0 No 10mg Com mon 04-01 Spirit 00:00: - CHI 00 [facility] Celestone Celestone 2021-0 No 6mg Com mon Soluspan Soluspan 5-19 Spirit (Betamethas (Betamethas 00:00: - CHI one) one) 00 [facility] Celestone Celestone 2021-0 No 6mg Com mon Soluspan Soluspan 5-19 Spirit (Betamethas (Betamethas 00:00: - CHI one) one) 00 [facility] Celestone Celestone 2021-0 No 6mg Com mon Soluspan Soluspan 5-19 Spirit (Betamethas (Betamethas 00:00: - CHI one) one) 00 [facility] Lidocaine Lidocaine 2021-0 No 10mg Com 04-01 Spirit 00:00: - CHI 00 [facility] Lidocaine Lidocaine 2021-0 No 10mg Com mon 04-01 Spirit 00:00: - CHI 00 [facility] Celestone Celestone 2021-0 No 6mg Com mon Soluspan Soluspan 5-19 Spirit (Betamethas (Betamethas 00:00: - CHI one) one) 00 [facility] Celestone Celestone 2021-0 No 6mg Com mon Soluspan Soluspan 5-19 Spirit (Betamethas (Betamethas 00:00: - CHI one) one) 00 [facility] Lidocaine Lidocaine 2021-0 No 10mg Com mon 04-01 Spirit 00:00: - CHI 00 [facility] Lidocaine Lidocaine 2-0 No 10mg Com mon - Spirit 00:00: - CHI 00 [facility] Celestone Celestone 2021-0 No 6mg Com mon Soluspan Soluspan 5-19 Spirit (Betamethas (Betamethas 00:00: - CHI one) one) 00 [facility] Celestone Celestone 2021-0 No 6mg Com mon Soluspan Soluspan -19 Spirit (Betamethas (Betamethas 00:00: - CHI one) one) 00 [facility] Lidocaine Lidocaine 2-0 No 10mg Com mon - Spirit 00:00: - [facility]I 00 [facility] Lidocaine Lidocaine 2021-0 No 10mg Com mon - Spirit 00:00: - CHI 00 [facility] Celestone Celestone 2021-0 No 6mg Com mon Soluspan Soluspan - Spirit (Betamethas (Betamethas 00:00: - CHI one) one) 00 [facility] Celestone Celestone 2021-0 No 6mg Com mon Soluspan Soluspan - Spirit (Betamethas (Betamethas 00:00: - CHI one) one) 00 [facility] Lidocaine Lidocaine 2-0 No 10mg Com 04-01 Spirit 00:00: - CHI 00 [facility] Lidocaine Lidocaine 2-0 No 10mg Com mon - Spirit 00:00: - CHI 00 [facility] Celestone Celestone 2021-0 No 6mg Com mon Soluspan Soluspan - Spirit (Betamethas (Betamethas 00:00: - CHI one) one) 00 [facility] Celestone Celestone 2021-0 No 6mg Com mon Soluspan Soluspan 5-19 Spirit (Betamethas (Betamethas 00:00: - CHI one) one) 00 [facility] Lidocaine Lidocaine 2-0 No 10mg Com mon 04-01 Spirit 00:00: - CHI 00 [facility] Lidocaine Lidocaine 2-0 No 10mg Com mon - Spirit 00:00: - CHI 00 [facility] Celestone Celestone 2021-0 No 6mg Com mon Soluspan Soluspan 5-19 Spirit (Betamethas (Betamethas 00:00: - CHI one) one) 00 [facility] Celestone Celestone 2-0 No 6mg Com mon Soluspan Soluspan 5-19 Spirit (Betamethas (Betamethas 00:00: - CHI one) one) 00 [facility] Lidocaine Lidocaine 2021-0 No 10mg Com mon 5- Spirit 00:00: - CHI 00 [facility] Lidocaine Lidocaine 2021-0 No 10mg Com mon 04-01 Spirit 00:00: - CHI 00 [facility] Folic Acid Folic Acid 2022-0 2022- No [...] 00:00 00 :00 Flomax 0.4 Flomax 0.4 2020-0 1- No 1{capsu QD Flomax 0.4 MG MG 3-10 08-19 le} MG 00:00: 00:00 00 :00 Accu-Chek Accu-Chek 2019-0 Yes Na Neff as Common Claire Plus Claire Plus 04-22 directed Spirit 00:00: - [facility]I 00 [facility] lisinopril 2018-11 Yes 40mg QD Take [address] (PRINIVIL,Z 2-17 by mouth Luke s ESTRIL) 40 18:08: daily. Medic al MG tablet [address] [place] [address] rosuvastati 2018-11 Yes 40mg QD Take [address] [facility] (CRESTOR) 2-17 by mouth Luke s 40 MG 18:08: daily. Medical tablet [address] [place] [address] pantoprazol 2018-11 Yes 40mg QD Take [address] [facility] 2-17 by mouth [facility] (PROTONIX) 18:08: daily. Medic al 40 MG 13 Michie tablet levothyroxi 2018-11 Yes QD Take by [facility] 25 mcg 2-17 mouth [facility] Cap 18:08: daily . [address] montelukast 2018-11 Yes 10mg QD Take [address] (SINGULAIR) 2-17 by mouth Luke s 10 mg 18:08: nightly. Medical tablet 13 Michie lisinopril 2018-11 Yes 40mg QD Take [address] (PRINIVIL,Z 2-17 by mouth Luke s ESTRIL) 40 18:08: daily. Medic al MG tablet 13 Michie rosuvastati 2018-11 Yes 40mg QD Take [address] n (CRESTOR) 2-17 by mouth Luke s 40 MG 18:08: daily. Medical tablet [address] [place] [address] pantoprazol 2018-11 Yes 40mg QD Take [address] e 2-17 by mouth [facility] (PROTONIX) 18:08: daily. Medic al [address] [place] [address] tablet levothyroxi 2018-11 Yes QD Take by [facility] 25 mcg 2-17 mouth [facility] Cap 18:08: daily . Medical [address] [place] [address] montelukast 2018-11 Yes 10mg QD Take [address] (SINGULAIR) 2-17 by mouth Luke s 10 mg 18:08: nightly. Medical tablet [address] [place] [address] meclizine 2018-11 Yes 25mg QD Take [address] (ANTIVERT) 2-17 by mouth [facility] 25 MG 18:08: daily. Medical tablet 13 Michie Missing or 2018-[address] [facility] Non-Formula 2-17 100mg QID, Grace kes ry 18:08: Zinc 50mg Medical Medication 13 daily, Center Coenzyme 10 BID, Vit D2 1000u daily, Align probiotic, Chromium 200mg daily, Areds 2caps daily. meclizine 2018-11 Yes 25mg QD Take [address] (ANTIVERT) 2-17 by mouth [facility] 25 MG 18:08: daily. Medical tablet 13 Michie Missing or 2018-11 Yes Magnesium CH I [...] 18:08: daily. Medic al MG tablet [address] [place] [address] rosuvastati 2018-11 Yes 40mg QD Take [address] n (CRESTOR) 2-17 by mouth Luke s 40 MG 18:08: daily. Medical tablet 13 Michie pantoprazol 2018-11 Yes 40mg QD Take [address] e 2-17 by mouth [facility] (PROTONIX) 18:08: daily. Medic al [address] [place] [address] tablet levothyroxi 2018-11 Yes QD Take by [facility] 25 mcg 2-17 mouth [facility] Cap 18:08: daily . [address] 2018-11 Yes 10mg QD Take [address] (SINGULAIR) 2-17 by mouth Luke s 10 mg 18:08: nightly. Medical tablet [address] [place], [place] [address] 2018-11 Yes 25mg QD Take [address] (ANTIVERT) 2-17 by mouth [facility] 25 MG 18:08: daily. Medical tablet [address] [place] [address] or 2018-[address] [facility] Non-Formula 2-17 100mg QID, Grace kes ry 18:08: Zinc 50mg Medical Medication 13 daily, Center Coenzyme 10 BID, Vit D2 1000u daily, Align probiotic, Chromium 200mg daily, Areds 2caps daily. lisinopril 2018-11 Yes 40mg QD Take 40 mg C [facility] St (PRINIVIL,Z 2-17 by mouth [facility] ESTRIL) 40 18:08: daily. Medic al MG tablet [address] [place] [address] rosuvastati 2018-11 Yes 40mg QD Take [address] [facility] [facility] (CRESTOR) 2-17 by mouth [facility] 40 MG 18:08: daily. Medical tablet [address] [place] [address] pantoprazol 2018-11 Yes 40mg QD Take [address] [facility] 2-17 [facility] (PROTONIX) 18:08: daily. Medic al [address] [place] [address] tablet levothyroxi 2018-11 Yes QD Take by [facility] 25 mcg 2-17 mouth [facility] Cap 18:08: daily . [address] 2018-11 Yes 10mg QD Take [address] (SINGULAIR) 2-17 by mouth [facility] 10 mg 18:08: nightly. Medical tablet [address] [place] [address] 2018-11 Yes 25mg QD Take [address] (ANTIVERT) 2-17 [facility] 25 MG 18:08: daily. Medical tablet [address] [place] [address] or 2018-[address] [facility] Non-Formula 2-17 100mg QID, Grace kes ry 18:08: Zinc 50mg Medical Medication 13 daily, Center Coenzyme 10 BID, Vit D2 1000u daily, Align probiotic, Chromium 200mg daily, Areds 2caps daily. lisinopril 2018-11 Yes 40mg QD Take [address] (PRINIVIL,Z 2-17 by mouth [facility] ESTRIL) 40 18:08: daily. Medic al MG tablet [address] [place] [address] [facility] Yes 40mg QD Take [address] [facility] (CRESTOR) 2-17 by mouth [facility] 40 MG 18:08: daily. Medical tablet [address] [place] [address] pantoprazol 2018-11 Yes 40mg QD Take [address] [facility] 2-17 [facility] (PROTONIX) 18:08: daily. Medic al [address] [place] [address] tablet levothyroxi 2018-11 Yes QD Take by [facility] 25 mcg 2-17 mouth [facility] Cap 18:08: daily . [address] 2018-11 Yes 10mg QD Take [address] (SINGULAIR) 2-17 by mouth [facility] 10 mg 18:08: nightly. Medical tablet [address] [place] [address] meclizine 2018-11 Yes 25mg QD Take [address] (ANTIVERT) 2-17 [facility] 25 MG 18:08: daily. Medical tablet [address] [place] [address] Missing or 2018-11 Yes [address]esium [facility] Non-Formula 2-17 100mg QID, Grace kes ry 18:08: Zinc 50mg Medical Medication 13 daily, Center Coenzyme 10 BID, Vit D2 1000u daily, Align probiotic, Chromium 200mg daily, Areds 2caps daily. lisinopril 2018-11 Yes 40mg QD Take [address] (PRINIVIL,Z 2-17 by mouth [facility] ESTRIL) 40 18:08: daily. Medic al MG tablet [address] [place] [place] [address] 2018-11 Yes 40mg QD Take [address] [facility] (CRESTOR) 2-17 by mouth [facility] 40 MG 18:08: daily. Medical tablet [address] [place] [address] pantoprazol 2018-11 Yes 40mg QD Take [address] [facility] 2-17 by mouth [facility] (PROTONIX) 18:08: daily. Medic al [address] [place] [address] tablet levothyroxi 2018-11 Yes QD Take by [facility] 25 mcg 2-17 mouth [facility] Cap 18:08: daily . [address] 2018-11 Yes 10mg QD Take [address] (SINGULAIR) 2-17 by mouth [facility] 10 mg 18:08: nightly. Medical tablet [address] [place] [address] 2018-11 Yes 25mg QD Take [address] (ANTIVERT) 2-17 [facility] 25 MG 18:08: daily. Medical tablet [address] [place] [address] 2018-11 Yes [address]esium [facility] Non-Formula 2-17 100mg QID, Grace kes ry 18:08: Zinc 50mg Medical Medication 13 daily, Michie Coenzyme 10 BID, Vit D2 1000u daily, Align probiotic, Chromium 200mg daily, Areds 2caps daily. lisinopril 2018-11 Yes 40mg QD Take [address] (PRINIVIL,Z 2-17 by mouth [facility] ESTRIL) 40 18:08: daily. Medic al MG tablet [address] [place] [address] 2018-11 Yes 40mg QD Take [address] [facility] (CRESTOR) 2-17 by mouth [facility] 40 MG 18:08: daily. Medical tablet [address] [place] [address] pantoprazol 2018-11 Yes 40mg QD Take [address] [facility] 2-17 by mouth [facility] (PROTONIX) 18:08: daily. Medic al [address] [place] [address] tablet levothyroxi 2018-11 Yes QD Take by [facility] 25 mcg 2-17 mouth [facility] Cap 18:08: daily . [address] 2018-11 Yes 10mg QD Take [address] (SINGULAIR) 2-17 by mouth [facility] 10 mg 18:08: nightly. Medical tablet [address] [place] [address] 2018-11 Yes 25mg QD Take [address] (ANTIVERT) 2-17 [facility] 25 MG 18:08: daily. Medical tablet [address] [place] [address] 2018-11 Yes [address] [facility] Non-Formula 2-17 100mg QID, Grace kes ry 18:08: Zinc 50mg Medical Medication 13 daily, Michie Coenzyme 10 BID, Vit D2 1000u daily, Align probiotic, Chromium 200mg daily, Areds 2caps daily. lisinopril 2018-11 Yes 40mg QD Take [address] (PRINIVIL,Z 2-17 by mouth [facility] ESTRIL) 40 18:08: daily. Medic al MG tablet [address] [place] [address] 2018-11 Yes 40mg QD Take [address] [facility] (CRESTOR) 2-17 by mouth [facility] 40 MG 18:08: daily. Medical tablet 13 [place] pantoprazol 2018-11 Yes 40mg QD Take [address] [facility] 2-17 by mouth [facility] (PROTONIX) 18:08: daily. Medic al 40 MG 13 [place] tablet levothyroxi 2018-11 Yes QD Take by [facility] 25 mcg 2-17 mouth [facility] Cap 18:08: daily . Medical 13 [place] montelukast 2018-11 Yes 10mg QD Take [address] (SINGULAIR) 2-17 by mouth [facility] 10 mg 18:08: nightly. Medical tablet 13 [place] meclizine 2018-11 Yes 25mg QD Take [address] (ANTIVERT) 2-17 [facility] 25 MG 18:08: daily. Medical tablet 13 [place] Missing or 2018-11 Yes [address]esium [facility] Non-Formula 2-17 100mg QID, Grace kes ry 18:08: Zinc 50mg Medical Medication 13 daily, Center Coenzyme 10 BID, Vit D2 1000u daily, Align probiotic, Chromium 200mg daily, Areds 2caps daily. [facility] No 40mg [facility] (Triamcinol (Triamcinol 3-06 S pirit one) one) 00:00: - [facility] Mimi Le No 40mg [facility] (Triamcinol (Triamcinol 3-06 S pirit one) one) 00:00: - [facility] Mimi Kenlorelei No 40mg [facility] (Triamcinol (Triamcinol 3-06 S pirit one) one) 00:00: - [facility] Mimi Kenlorelei No 40mg [facility] (Triamcinol (Triamcinol 3-06 S pirit one) one) 00:00: - [facility] Mimi Kenalog No 40mg [facility] (Triamcinol (Triamcinol 3-06 S pirit one) one) 00:00: - [facility] 40mg [facility] (Triamcinol (Triamcinol 3-06 S pirit one) one) 00:00: - [facility] Kenalog Kenalog 2018-0 No 40mg [facility] (Triamcinol (Triamcinol 3-06 S pirit one) one) 00:00: - [facility] Kenalog Kenalog 2018-0 No 40mg [facility] (Triamcinol (Triamcinol 3-06 S pirit one) one) 00:00: - [facility] Kenalog Kenalog 2018-0 No 40mg [facility] (Triamcinol (Triamcinol 3-06 S pirit one) one) 00:00: - [facility] Kenalog Kenalog 2018-0 No 40mg [facility] (Triamcinol (Triamcinol 3-06 S pirit one) one) 00:00: - [facility] Kenalog Kenalog 2018-0 No 40mg [facility] (Triamcinol (Triamcinol 3-06 S pirit one) one) 00:00: - [facility] Kenalog Kenalog 2018-0 No 40mg [facility] (Triamcinol (Triamcinol 3-06 S pirit one) one) 00:00: - [facility] Kenalog Kenalog 2018-0 No 40mg [facility] (Triamcinol (Triamcinol 3-06 S pirit one) one) 00:00: - [facility] Kenalog Kenalog 2018-0 No 40mg [facility] (Triamcinol (Triamcinol 3-06 S pirit one) one) 00:00: - [facility] Kenalog Kenalog 2018-0 No 40mg [facility] (Triamcinol (Triamcinol 3-06 S pirit one) one) 00:00: - [facility] Kenalog Kenalog 2018-0 No 40mg [facility] (Triamcinol (Triamcinol 3-06 S pirit one) one) 00:00: - [facility] Kenalog Kenalog 2018-0 No 40mg [facility] (Triamcinol (Triamcinol 3-06 S pirit one) one) 00:00: - [facility] Kenalog Kenalog 2018-0 No 40mg [facility] (Triamcinol (Triamcinol 3-06 S pirit one) one) 00:00: - [facility] Kenalog Kenalog 2018-0 No 40mg [facility] (Triamcinol (Triamcinol 3-06 S pirit one) one) 00:00: - [facility] Kenalog Kenalog 2018-0 No 40mg [facility] (Triamcinol (Triamcinol 3-06 S pirit one) one) 00:00: - [facility] Kenalog Kenalog 2018-0 No 40mg [facility] (Triamcinol (Triamcinol 3-06 S pirit one) one) 00:00: - [facility] Kenalog Kenalog 2018-0 No 40mg Common (Triamcinol (Triamcinol 3-06 S pirit one) one) 00:00: - [facility] Kenalog Kenalog 2018-0 No 40mg [facility] (Triamcinol (Triamcinol 3-06 S pirit one) one) 00:00: - [facility] Kenalog Kenalog 2018-0 No 40mg [facility] (Triamcinol (Triamcinol 3-06 S pirit one) one) 00:00: - [facility] Kenalog Kenalog 2018-0 No 40mg [facility] (Triamcinol (Triamcinol 3-06 S pirit one) one) 00:00: - [facility] Kenalog Kenalog 2018-0 No 40mg Common (Triamcinol (Triamcinol 3-06 S pirit one) one) 00:00: - [facility] Kenalog Kenalog 2018-0 No 40mg Common (Triamcinol (Triamcinol 3-06 S pirit one) one) 00:00: - [facility] Kenalog Kenalog 2018-0 No 40mg Common (Triamcinol (Triamcinol 3-06 S pirit one) one) 00:00: - [facility] Kenalog Kenalog 2018-0 No 40mg [facility] (Triamcinol (Triamcinol 3-06 S pirit one) one) 00:00: - [facility] Kenalog Kenalog 2018-0 No 40mg [facility] (Triamcinol (Triamcinol 3-06 S pirit one) one) 00:00: - [facility] Accu-Chek Accu-Chek No Accu-Chek Softclix Softclix Softclix [...] HCl 0.6 % Glucometer Glucometer Yes Na Neff one Common [facility] Levothyroxi Levothyroxi Yes Na Neff 1 tablet Common ne Sodium ne Sodium on an Spir it empty - [facility] stomach in [facility] Lancets Lancets Yes Na Neff as Common directed [facility] Accu-Chek Accu-Chek Yes Na Neff as Co mmon Softclix Softclix directed Spi rit Lancets Lancets - [facility] Meclizine Meclizine Yes Na Neff TAKE 1 Common HCl HCl TABLET BY Spirit MOUTH - [facility] THREE [facility] Mobic Mobic Yes Na Neff 1 tablet Common [facility] Euthyrox Euthyrox Yes Na Neff TAKE 1 Co mmon TABLET BY Spirit MOUTH ONCE - [facility] DAILY IN [facility] ON Medical AN EMPTY Center STOMACH EpiPen EpiPen Yes Na Neff not Common 2-Gerald 2-Gerald defined [facility] Olopatadine Olopatadine Yes Na Neff 2 sprays Common HCl HCl in each Spirit nostril - [facility] Meclizine Meclizine Yes Na Neff TAKE 1 Common HCl HCl TABLET BY Spirit MOUTH 3 - CHI TIMES A [facility] Levothyroxi Levothyroxi Yes Na Neff 1 tablet Common ne Sodium ne Sodium on an Spir it empty - [facility] stomach in [facility] Cipro Cipro Yes Na Neff 1 tablet Common [facility] Augmentin Augmentin Yes Na Neff 1 tablet Common [facility] Crestor Crestor Yes Na Neff 1 tablet Co mmon [facility] Pantoprazol Pantoprazol Yes Na Neff 1 tablet Common e Sodium e Sodium [facility] blood blood Yes Na Neff as Common glucose glucose directed Spiri t test strip test strip - [facility] Singulair Singulair Yes Na Neff 1 tablet Common [facility] Lisinopril Lisinopril Yes Na Neff 1 tablet [facility] - [facility] Accu-Chek Accu-Chek No QD Accu-Chek Claire [...] Besylate 2.5 MG 2.5 MG 2.5 MG Crestor 40 Crestor 40 No 1{table QD Crestor 40 MG MG t} MG Meclizine Meclizine No Meclizine HCl 25 MG HCl 25 MG HCl 25 MG Famotidine Famotidine No 1{table QD Famotidine 40 MG 40 MG t_at_be 40 MG dtime} Accu-Chek Accu-Chek No Accu-Chek Claire Plus Claire Plus Claire Plus - - - Odette Odette No QD Odette Allergy 180 Allergy 180 Allergy MG MG 180 MG Magnesium Magnesium No Magnesium Glycinate Glycinate Glycinate Montelukast Montelukast No 1{table QD Montelukas Sodium 10 Sodium 10 t} t Sodium MG MG 10 MG Euthyrox 50 Euthyrox 50 No QD Euthyrox MCG MCG 50 MCG Folic Acid Folic Acid No Folic Acid 1 MG 1 MG 1 MG Align Align No Align CoQ-10 CoQ-10 No CoQ-10 Lisinopril Lisinopril No 1{table QD Lisinopril 40 MG 40 MG t} 40 MG Zinc 50 MG Zinc 50 MG [...] Softclix Lancets - Lancets - Lancets - PreserVisio PreserVisio No PreserVisi n AREDS n AREDS on AREDS Montelukast Montelukast No Montelukas Sodium 10 Sodium [...] MG HCl 25 MG HCl 25 MG Doette Odette No QD Odette Allergy 180 Allergy [...] le} 200 MCG Align Align No Align Immunizations Ordered Immunization Filled Immunization Date Status Commen ts Source Name Name FluAD FluAD 2021-07-30 [facility] FluAD FluAD 2021-07-30 [facility] FluAD FluAD 2021-07-30 [facility] FluAD FluAD 2021-07-30 [facility] FluAD FluAD 2021-07-30 [facility] - [facility] FluAD FluAD 2021-07-30 [facility]:: - [facility] FluAD FluAD 2021-07-30 [facility] - [facility] FluAD FluAD 2021-07-30 [facility] - [facility] FluAD FluAD 2021-07-30 [facility] - [facility] FluAD FluAD 2021-07-30 [facility] 14[facility] - [facility] FluAD FluAD 2021-07-30 [facility]:: - [facility] FluAD FluAD 2021-07-30 [facility]:01:[facility] - [facility] FluAD FluAD 2021-07-30 [facility] 14[facility] - [facility] FluAD FluAD 2021-07-30 [facility]:01:[facility] - [facility] FluAD FluAD 2021-07-30 [facility] 14[facility] - [facility] FluAD FluAD 2021-07-30 [facility] 14[facility] - [facility] FluAD FluAD 2021-07-30 [facility] 14[facility] - [facility] FluAD FluAD 2021-07-30 [facility] 14::[facility] - [facility] FluAD FluAD 2021-07-30 [facility]:01:[facility] - [facility] FluAD FluAD 2021-07-30 [facility] 14::[facility] - [facility] FluAD FluAD 2021-07-30 [facility] 14::[facility] - [facility] FluAD FluAD 2021-07-30 [facility] 14::[facility] - [facility] FluAD FluAD 2021-07-30 [facility] 14::00 - [facility] FluAD FluAD 2021-07-30 [facility] 14::[facility] - [facility] FluAD FluAD 2021-07-30 [facility] 14::[facility] - [facility] FluAD FluAD 2021-07-30 [facility]:: - [facility] FluAD FluAD 2021-07-30 [facility]:: - [facility] FluAD FluAD 2021-07-30 [facility] 14::[facility] - [facility] FluAD FluAD 2021-07-30 [facility] 14::[facility] - [facility] FluAD FluAD 2021-07-30 [facility] 14::[facility] - [facility] FluAD FluAD 2021-07-30 [facility] 14:: - [facility] FluAD FluAD 2021-07-30 [facility] 14::[facility] - [facility] FluAD FluAD 2021-07-30 [facility] 14::[facility] - [facility] FluAD FluAD 2021-07-30 [facility] 14::00 - [facility] FluAD FluAD 2021-07-30 [facility] 14::00 - [facility] FluAD FluAD 2021-07-30 [facility] 14::00 - [facility] FluAD FluAD 2020-08-27 [facility] 10::00 - [facility] FluAD FluAD 2020-08-27 [facility]pleted [facility] 10::00 - [facility] FluAD FluAD 2020-08-27 [facility]pleted [facility] 10:11:00 - [facility] FluAD FluAD 2020-08-27 [facility]pleted [facility] 10:11:00 - [facility] FluAD FluAD 2020-08-27 [facility]pleted [facility] 10:11:[facility] - [facility] FluAD FluAD 2020-08-27 [facility]pleted [facility] 10:11:00 - [facility] FluAD FluAD 2020-08-27 [facility]pleted [facility] 10:11:00 - [facility] FluAD FluAD 2020-08-27 [facility]pleted [facility] 10:11:[facility] - [facility] FluAD FluAD 2020-08-27 [facility]pleted [facility] 10:11:00 - [facility] FluAD FluAD 2020-08-27 [facility]pleted [facility] 10:11:[facility] - [facility] FluAD FluAD 2020-08-27 [facility]pleted [facility] 10:11:00 - [facility] FluAD FluAD 2020-08-27 [facility]pleted [facility] 10:11:00 - [facility] FluAD FluAD 2020-08-27 [facility]pleted [facility] 10:11:00 - [facility] FluAD FluAD 2020-08-27 [facility]pleted [facility] 10:11:00 - [facility] FluAD FluAD 2020-08-27 [facility]pleted [facility] 10:11:[facility] - [facility] FluAD FluAD 2020-08-27 [facility]pleted [facility] 10:11:[facility] - [facility] FluAD FluAD 2020-08-27 [facility]pleted [facility] 10:11:[facility] - [facility] FluAD FluAD 2020-08-27 [facility]pleted [facility] 10:11:00 - [facility] FluAD FluAD 2020-08-27 [facility]pleted [facility] 10:11:00 - [facility] FluAD FluAD 2020-08-27 [facility]pleted [facility] 10:11:00 - [facility] FluAD FluAD 2020-08-27 [facility]pleted [facility] 10:11:00 - [facility] FluAD FluAD 2020-08-27 [facility]pleted [facility] 10:11:[facility] - [facility] FluAD FluAD 2020-08-27 [facility]pleted [facility] 10:11:00 - [facility] FluAD FluAD 2020-08-27 [facility]pleted [facility] 10:11:00 - [facility] FluAD FluAD 2020-08-27 [facility]pleted [facility] 10:11:00 - [facility] FluAD FluAD 2020-08-27 [facility]pleted [facility] 10:11:00 - [facility] FluAD FluAD 2020-08-27 [facility]pleted [facility] 10:11:00 - [facility] FluAD FluAD 2020-08-27 [facility]pleted [facility] 10:11:00 - [facility] FluAD FluAD 2020-08-27 [facility]pleted [facility] 10:11:00 - [facility] FluAD FluAD 2020-08-27 [facility]pleted [facility] 10:11:00 - [facility] FluAD FluAD 2020-08-27 [facility]pleted [facility] 10:11:00 - [facility] FluAD FluAD 2020-08-27 [facility]pleted [facility] 10:11:00 - [facility] FluAD FluAD 2020-08-27 [facility]pleted [facility] 10:11:00 - [facility] FluAD FluAD 2020-08-27 [facility]pleted [facility] 10:11:00 - [facility] FluAD FluAD 2020-08-27 [facility]pleted [facility] 10:11:00 - [facility] FluAD FluAD 2020-08-27 [facility]pleted [facility] 10:11:00 - [facility] FluAD FluAD 2019-07-25 Completed [facility] 12:27:00 - [facility] FluAD FluAD 2019-07-25 Completed [facility] 12:27:00 - [facility] FluAD FluAD 2019-07-25 Completed [facility] 12:27:00 - [facility] FluAD FluAD 2019-07-25 Completed [facility] 12:27:00 - [facility] FluAD FluAD 2019-07-25 Completed [facility] 12:27:00 - [facility] FluAD FluAD 2019-07-25 Completed [facility] 12:27:00 - [facility] FluAD FluAD 2019-07-25 Completed [facility] 12:27:00 - [facility] FluAD FluAD 2019-07-25 [facility]pleted [facility] 12:27:00 - [facility] FluAD FluAD 2019-07-25 [facility]pleted [facility] 12:27:00 - [facility] FluAD FluAD 2019-07-25 [facility]pleted [facility] 12:27:00 - [facility] FluAD FluAD 2019-07-25 Completed [facility] 12::00 - [facility] FluAD FluAD 2019-07-25 Completed [facility] 12:27:00 - [facility] FluAD FluAD 2019-07-25 [facility]pleted [facility] 12:27:00 - [facility] FluAD FluAD 2019-07-25 Completed [facility] 12:27:00 - [facility] FluAD FluAD 2019-07-25 Completed [facility] 12:27:00 - [facility] FluAD FluAD 2019-07-25 Completed [facility] 12:27:00 - [facility] FluAD FluAD 2019-07-25 Completed [facility] 12:27:00 - [facility] FluAD FluAD 2019-07-25 Completed [facility] 12::00 - [facility] FluAD FluAD 2019-07-25 Completed [facility] 12:27:00 - [facility] FluAD FluAD 2019-07-25 Completed [facility] 12::00 - [facility] FluAD FluAD 2019-07-25 Completed [facility] 12::00 - [facility] FluAD FluAD 2019-07-25 [facility]pleted [facility] 12:27:00 - [facility] FluAD FluAD 2019-07-25 [facility]pleted [facility] 12:27:00 - [facility] FluAD FluAD 2019-07-25 [facility]pleted [facility] 12:27:00 - [facility] FluAD FluAD 2019-07-25 [facility]pleted [facility] 12:27:00 - [facility] FluAD FluAD 2019-07-25 [facility]pleted [facility] 12:27:00 - [facility] FluAD FluAD 2019-07-25 Completed [facility] 12::00 - [facility] FluAD FluAD 2019-07-25 [facility]pleted [facility] 12:27:00 - [facility] FluAD FluAD 2019-07-25 [facility]pleted [facility] 12:27:00 - [facility] FluAD FluAD 2019-07-25 [facility]pleted [facility] 12:27:00 - [facility] FluAD FluAD 2019-07-25 Completed [facility] 12:27:00 - [facility] FluAD FluAD 2019-07-25 Completed [facility] 12:27:00 - [facility] FluAD FluAD 2019-07-25 Completed [facility] 12:27:00 - [facility] FluAD FluAD 2019-07-25 Completed [facility] 12:27:00 - [facility] FluAD FluAD 2019-07-25 Completed [facility] 12:27:00 - [facility] FluAD FluAD 2019-07-25 Completed [facility] 12:27:00 - [facility] FluAD FluAD 2019-07-25 Completed [facility]:00:00 - [facility] Pneumovax (PPSV23) Pneumovax (PPSV23) 2018-04-24 Completed [facility] 10:31:00 - [facility] Pneumovax (PPSV23) Pneumovax (PPSV23) 2018-04-24 [facility]pleted [facility] 10:31:00 - [facility] Pneumovax (PPSV23) Pneumovax (PPSV23) 2018-04-24 [facility]pleted [facility] 10:31:00 - [facility] Pneumovax (PPSV23) Pneumovax (PPSV23) 2018-04-24 [facility]pleted [facility] 10:31:00 - [facility] Pneumovax (PPSV23) Pneumovax (PPSV23) 2018-04-24 [facility] 10:31:00 - [facility] Pneumovax (PPSV23) Pneumovax (PPSV23) 2018-04-24 [facility]pleted [facility] 10:31:00 - [facility] Pneumovax (PPSV23) Pneumovax (PPSV23) 2018-04-24 [facility]pleted [facility] 10:31:00 [facility] Pneumovax (PPSV23) Pneumovax (PPSV23) 2018-04-24 Completed [facility] 10:31:00 [facility] Pneumovax (PPSV23) Pneumovax (PPSV23) 2018-04-24 [facility]pleted [facility] 10:31:00 - [facility] Pneumovax (PPSV23) Pneumovax (PPSV23) 2018-04-24 [facility] 10:31:00 - [facility] Pneumovax (PPSV23) Pneumovax (PPSV23) 2018-04-24 [facility]pleted [facility] 10:31:00 [facility] Pneumovax (PPSV23) Pneumovax (PPSV23) 2018-04-24 [facility]pleted [facility] 10:31:00 - [facility] Pneumovax (PPSV23) Pneumovax (PPSV23) 2018-04-24 [facility]:31:00 - [facility] Pneumovax (PPSV23) Pneumovax (PPSV23) 2018-04-24 [facility]:31:[facility] - [facility] Pneumovax (PPSV23) Pneumovax (PPSV23) 2018-04-24 Completed [facility] [facility] 10:31:[address] - [facility] Pneumovax (PPSV23) Pneumovax (PPSV23) 2018-04-24 Completed [facility] 10:31:00 [facility] Pneumovax (PPSV23) Pneumovax (PPSV23) 2018-04-24 Completed [facility] 10:31:[facility] - [facility] Pneumovax (PPSV23) Pneumovax (PPSV23) 2018-04-24 Completed [facility] 10:31:[facility] - [facility] Pneumovax (PPSV23) Pneumovax (PPSV23) 2018-04-24 Completed [facility] 10:31:[facility] - [facility] Pneumovax (PPSV23) Pneumovax (PPSV23) 2018-04-24 Completed [facility] 10:31:00 [facility] Pneumovax (PPSV23) Pneumovax (PPSV23) 2018-04-24 Completed [facility] 10:31:00 [facility] Pneumovax (PPSV23) Pneumovax (PPSV23) 2018-04-24 Completed [facility] 10:31:[facility] - [facility] Pneumovax (PPSV23) Pneumovax (PPSV23) 2018-04-24 Completed [facility] 10:31:[facility] - [facility] Pneumovax (PPSV23) Pneumovax (PPSV23) 2018-04-24 Completed [facility] 10:31:00 - [facility] Pneumovax (PPSV23) Pneumovax (PPSV23) 2018-04-24 Completed [facility] 10:31:[facility] - [facility] Pneumovax (PPSV23) Pneumovax (PPSV23) 2018-04-24 Completed [facility] 10:31:[facility] - [facility] Pneumovax (PPSV23) Pneumovax (PPSV23) 2018-04-24 Completed [facility] 10:31:00 - [facility] Pneumovax (PPSV23) Pneumovax (PPSV23) 2018-04-24 Completed [facility] 10:31:00 - [facility] Pneumovax (PPSV23) Pneumovax (PPSV23) 2018-04-24 Completed [facility] 10:31:[facility] - [facility] Pneumovax (PPSV23) Pneumovax (PPSV23) 2018-04-24 Completed [facility] 10:31:00 - [facility] Pneumovax (PPSV23) Pneumovax (PPSV23) 2018-04-24 Completed [facility] 10:31:[facility] - [facility] Pneumovax (PPSV23) Pneumovax (PPSV23) 2018-04-24 Completed [facility] 10:31:[facility] - [facility] Pneumovax (PPSV23) Pneumovax (PPSV23) 2018-04-24 Completed [facility] 10:31:[facility] - [facility] Pneumovax (PPSV23) Pneumovax (PPSV23) 2018-04-24 Completed [facility] 10:31:00 - [facility] Pneumovax (PPSV23) Pneumovax (PPSV23) 2018-04-24 Completed [facility] 10:31:00 [facility] Pneumovax (PPSV23) Pneumovax (PPSV23) 2018-04-24 Completed [facility] 10:31:00 [facility] Kenalog Kenalog 2018-01-17 Completed [facility] (Triamcinolone) (Triamcinolone) 11:32:00 - [facility] Mimi Le 2018-01-17 Completed [facility] (Triamcinolone) (Triamcinolone) 11:32:00 [facility] Vital Signs Vital Name Observation Time Observation Value Comments Source height 2022-12-15 16:00:00 68 [in_i] Common [facility] weight 2022-12-15 16:00:00 175.2 [lb_av] Common [facility] temperature 2022-12-15 16:00:00 97.8 [degF] Common [facility] bmi 2022-12-15 16:00:00 26.64 kg/m2 [facility] oximetry 2022-12-15 16:00:00 93 % [facility] respiratory rate 2022-12-15 16:00:00 16 /min Comm on [facility] blood pressure 2022-12-15 16:00:00 127 mm[Hg] Common [facility] - systolic [facility] blood pressure 2022-12-15 16:00:00 59 mm[Hg] Common [facility] - diastolic [facility] height 2022-07-13 08:40:00 68 [in_i] Common [facility] weight 2022-07-13 08:40:00 166.7 [lb_av] [facility] temperature 2022-07-13 08:40:00 97.9 [degF] Common [facility] bmi 2022-07-13 08:40:00 25.34 kg/m2 [facility] oximetry 2022-07-13 08:40:00 97 % [facility] respiratory rate 2022-07-13 08:40:00 16 /min Comm on [facility] blood pressure 2022-07-13 08:40:00 127 mm[Hg] Common [facility] - systolic [facility] blood pressure 2022-07-13 08:40:00 60 mm[Hg] [facility] - diastolic [facility] height 2022-06-23 11:20:00 68 [in_i] Common [facility] - [facility] weight 2022-06-23 11:20:00 171.1 [lb_av] Common [facility] - [facility] temperature 2022-06-23 11:20:00 97.7 [degF] Common S pirit [facility] bmi 2022-06-23 11:20:00 26.01 kg/m2 [facility] oximetry 2022-06-23 11:20:00 97 % [facility] respiratory rate 2022-06-23 11:20:00 16 /min Comm on [facility] blood pressure 2022-06-23 11:20:00 139 mm[Hg] [facility] - systolic [facility] blood pressure 2022-06-23 11:20:00 69 mm[Hg] [facility] - diastolic [facility] height 2022-06-02 08:20:00 68 [in_i] Common S pirit [facility] weight 2022-06-02 08:20:00 163 [lb_av] [facility] S pirit [facility] bmi 2022-06-02 08:20:00 24.78 kg/m2 Common S pirit [facility] height 2022-04-01 14:00:00 68 [in_i] Common S pirit - [facility] weight 2022-04-01 14:00:00 161 [lb_av] Common S pirit [facility] bmi 2022-04-01 14:00:00 24.48 kg/m2 [facility] S pirit - [facility] blood pressure 2022-04-01 14:00:00 126 mm[Hg] [facility] - systolic [facility] blood pressure 2022-04-01 14:00:00 78 mm[Hg] [facility] - diastolic [facility] height 2022-03-24 13:30:00 68 [in_i] Common S pirit [facility] weight 2022-03-24 13:30:00 160 [lb_av] Common [facility] bmi 2022-03-24 13:30:00 24.33 kg/m2 [facility] height 2022-03-02 16:40:00 68 [in_i] [facility] weight 2022-03-02 16:40:00 170.8 [lb_av] [facility] temperature 2022-03-02 16:40:00 97.6 [degF] [facility] bmi 2022-03-02 16:40:00 25.97 kg/m2 [facility] oximetry 2022-03-02 16:40:00 96 % [facility] respiratory rate 2022-03-02 16:40:00 16 /min Comm on [facility] blood pressure 2022-03-02 16:40:00 138 mm[Hg] Common [facility] - systolic [facility] blood pressure 2022-03-02 16:40:00 58 mm[Hg] Common [facility] - diastolic [facility] height 2022-02-10 08:40:00 68 [in_i] [facility] weight 2022-02-10 08:40:00 160 [lb_av] [facility] bmi 2022-02-10 08:40:00 24.33 kg/m2 [facility] S [facility] height 2021-10-29 08:40:00 68 [in_i] [facility] weight 2021-10-29 08:40:00 166 [lb_av] [facility] temperature 2021-10-29 08:40:00 97.2 [degF] [facility] bmi 2021-10-29 08:40:00 25.24 kg/m2 [facility] oximetry 2021-10-29 08:40:00 98 % Common S pirit - [facility] blood pressure 2021-10-29 08:40:00 132 mm[Hg] [facility] - systolic [facility] blood pressure 2021-10-29 08:40:00 63 mm[Hg] [facility] - diastolic [facility] height 2021-10-02 08:00:00 68 [in_i] Common S [facility] weight 2021-10-02 08:00:00 156 [lb_av] [facility] 2021-10-02 08:00:00 23.72 kg/m2 [facility] height 2021-07-30 13:00:00 68 [in_i] [facility] weight 2021-07-30 13:00:00 175.4 [lb_av] [facility] temperature 2021-07-30 13:00:00 97.5 [degF] [facility] bmi 2021-07-30 13:00:00 26.67 kg/m2 [facility] oximetry 2021-07-30 13:00:00 96 % [facility] respiratory rate 2021-07-30 13:00:00 16 /min Comm on [facility] blood pressure 2021-07-30 13:00:00 132 mm[Hg] Common [facility] - systolic [facility] blood pressure 2021-07-30 13:00:00 74 mm[Hg] Common [facility] - diastolic [facility] Procedures This patient has no known procedures. Plan of Care Planned Activity Planned Date Details Comments Source Future Scheduled 2022-11-[address] [...] = COVID-[address] VACCINE (#1)] Encounters Start End Encounter Admission Attending Care Care Encounter Source Date/Time Date/Time Type Type Clinicians Facility Department ID 2023-02-03 Outpatient Perez, STLMLC STLMLC [id number] Common 09:03:00 [facility] [id number] [facility] 2023-01-27 Outpatient Perez, STLMLC STLMLC [id number] Common 14:11:00 [facility] [id number] [facility] 2022-06-23 Outpatient Neff, Na STLMLC STLMLC [id number] 2 Common 10:50:01 [facility] 2022-05-31 Outpatient Neff, Na STLMLC STLMLC [id number] Common 08:13:01 [facility] 2022-04-01 Outpatient Neff, Na STLMLC STLMLC [id number] 2 Common 13:48:05 [facility] 2022-03-02 Outpatient Neff, Na STLMLC STLMLC [id number] Common 16:19:00 [facility] 2022-02-08 Outpatient Neff, Na STLMLC STLMLC [id number] Common 08:34:01 [facility] 2021-12-10 Outpatient Neff, Na STLMLC STLMLC [id number] 2 Common 15:36:00 [id number] [facility] 2021-12-09 Outpatient Neff, Na STLMLC STLMLC [id number] 2 Common 14:24:20 [id number] [facility] 2021-12-09 Outpatient Neff, Na STLMLC STLMLC [id number] 2 Common 14:15:28 [id number] [facility] 2021-12-09 Outpatient Neff, Na STLMLC STLMLC [id number] 2 Common 13:14:42 [id number] [facility] 2021-12-09 Outpatient Neff, Na STLMLC STLMLC [id number] 2 Common 13:05:10 [id number] [facility] 2021-12-09 Outpatient Neff, Na STLMLC STLMLC [id number] 2 Common 12:49:56 [id number] [facility] 2021-12-09 Outpatient Neff, Na STLMLC STLMLC [id number] 2 Common 12:36:00 [id number] [facility] 2021-12-09 Outpatient Neff, Na STLMLC STLMLC [id number] 2 Common 12:33:13 [id number] [facility] 2021-12-09 Outpatient Neff, Na STLMLC STLMLC [id number] 2 Common 12:32:16 [id number] [facility] 2021-12-09 Outpatient Neff, Na STLMLC STLMLC [id number] 2 Common 12:11:40 [id number] [facility] 2021-12-09 Outpatient Neff, Na STLMLC STLMLC [id number] 2 Common 12:07:56 [id number] [facility] 2021-12-09 Outpatient Neff, Na STLMLC STLMLC [id number] 2 Common 11:43:48 [id number] [facility] 2021-12-09 Outpatient Neff, Na STLMLC STLMLC [id number] 2 Common 11:39:42 [id number] [facility] 2023-11-24 2023-11-24 Outpatient KADIE, [facility] [id number] SLE 00:00:00 00:00:00 [facility] 2022-12-15 2022-12-15 OFFICE STLMLC STLMLC [id number] Co mmon 00:00:00 00:00:00 VISIT [facility] PT LEVEL 2 - [facility] 2022-12-03 2022-12-03 (TEL) STLMLC STLMLC [id number] Co mmon 00:00:00 00:00:00 [facility] 2022-11-30 2022-11-30 (TEL) STLMLC STLMLC [id number] Co mmon 00:00:00 00:00:00 [facility] 2022-11-25 2022-11-25 Historical Kadie [facility] [id number] [facility] [address] 00:[facility] 00:00:00 Encounter [facility] 2022-11-25 2022-11-25 Historical Kadie [facility] [id number] 00:[facility] 00:00:00 Encounter [facility] 2022-10-29 2022-10-29 (TEL) STLMLC STLMLC [id number] Co mmon 00:00:00 00:00:00 [facility] 2022-10-22 2022-10-22 (TEL) STLMLC STLMLC [id number] Co mmon 00:00:00 00:00:00 [facility] 2022 2022 (TEL) STLMLC STLMLC [id number] Co mmon 00:00:00 00:00:00 [facility] 2022-10-06 2022-10-06 (TEL) STLMLC STLMLC [id number] Co mmon 00:00:00 00:00:00 [facility] 2022-10-06 2022-10-06 OFFICE STLMLC STLMLC [id number] Co mmon 00:00:00 00:00:00 VISIT [facility] - CHI LEVEL 4 [facility] 2022-10-05 2022-10-05 (TEL) STLMLC STLMLC [id number] Co mmon 00:00:00 00:00:00 [facility] 2022-09-14 2022-09-14 (TEL) STLMLC STLMLC [id number] Co mmon 00:00:00 00:00:00 [facility] 2022-07-29 2022-07-29 (TEL) STLMLC STLMLC [id number] Co mmon 00:00:00 00:00:00 [facility] 2022-07-16 2022-07-16 (TEL) STLMLC STLMLC [id number] Co mmon 00:00:00 00:00:00 [facility] 2022-07-14 2022-07-14 (TEL) STLMLC STLMLC [id number] Co mmon 00:00:00 00:00:00 [facility] 2022-07-13 2022-07-13 OFFICE STLMLC STLMLC [id number] Co mmon 00:00:00 00:00:00 VISIT [facility] PT - CHI LEVEL 4 [facility] 2022-06-29 2022-06-29 (TEL) STLMLC STLMLC [id number] Co mmon 00:00:00 00:00:00 [facility] 2022-06-23 2022-06-23 OFFICE STLMLC STLMLC [id number] Co mmon 00:00:00 00:00:00 VISIT EST Spir it PT LEVEL 3 [facility] 2022-06-22 2022-06-22 (TEL) STLMLC STLMLC [id number] Co mmon 00:00:00 00:00:00 [facility] 2022-06-02 2022-06-02 (TEL) STLMLC STLMLC [id number] Co mmon 00:00:00 00:00:00 [facility] 2022-06-02 2022-06-02 OFFICE STLMLC STLMLC [id number] Co mmon 00:00:00 00:00:00 VISIT [facility] PT - CHI LEVEL 4 [facility] 2022-04-02 2022-04-02 (TEL) STLMLC STLMLC [id number] Co mmon 00:00:00 00:00:00 [facility] 2022-04-01 2022-04-01 OFFICE STLMLC STLMLC [id number] Co mmon 00:00:00 00:00:00 VISIT NEW [facility] PT LEVEL 4 - [facility] 2022-03-24 2022-03-24 OFFICE STLMLC STLMLC [id number] Co mmon 00:00:00 00:00:00 VISIT EST Spir it PT LEVEL 3 - [facility] 2022-03-19 2022-03-19 (TEL) STLMLC STLMLC [id number] Co mmon 00:00:00 00:00:00 [facility] 2022-03-12 2022-03-12 (TEL) STLMLC STLMLC [id number] Co mmon 00:00:00 00:00:00 [facility] 2022-03-08 2022-03-08 (TEL) STLMLC STLMLC [id number] Co mmon 00:00:00 00:00:00 [facility] 2022-03-04 2022-03-04 (TEL) STLMLC STLMLC [id number] Co mmon 00:00:00 00:00:00 [facility] 2022-03-02 2022-03-02 OFFICE STLMLC STLMLC [id number] Co mmon 00:00:00 00:00:00 VISIT [facility] PT - CHI LEVEL 2 [facility] 2022-02-10 2022-02-10 (TEL) STLMLC STLMLC [id number] Co mmon 00:00:00 00:00:00 [facility] 2022-02-10 2022-02-10 OFFICE STLMLC STLMLC [id number] Co mmon 00:00:00 00:00:00 VISIT [facility] ESTAB PT - CHI LEVEL 4 [facility] 2022-01-14 2022-01-14 (TEL) STLMLC STLMLC [id number] Co mmon 00:00:00 00:00:00 [facility] 2021-10-29 2021-10-29 OFFICE STLMLC STLMLC [id number] Co mmon 00:00:00 00:00:00 VISIT [facility] PT - CHI LEVEL 4 [facility] 2021-10-21 2021-10-21 (TEL) STLMLC STLMLC [id number] Co mmon 00:00:00 00:00:00 [facility] 2021-10-02 2021-10-02 OFFICE STLMLC STLMLC [id number] Co mmon 00:00:00 00:00:00 VISIT EST Spir it PT LEVEL 3 [facility] 2021-10-01 2021-10-01 (TEL) STLMLC STLMLC [id number] Co mmon 00:00:00 00:00:00 [facility] 2021-08-19 2021-08-19 (TEL) STLMLC STLMLC [id number] Co mmon 00:00:00 00:00:00 [facility] 2021-07-30 2021-07-30 OFFICE STLMLC STLMLC [id number] Co mmon 00:00:00 00:00:00 VISIT [facility] PT [facility] LEVEL 4 [facility] 2021-07-13 2021-07-13 Outpatient STLMLC STLMLC [id number] Common 00:00:00 00:00:00 [facility] 2021-07-06 2021-07-06 Outpatient STLMLC STLMLC [id number] Common 00:00:00 00:00:00 [facility] 2021-07-01 2021-07-01 Outpatient STLMLC STLMLC [id number] Common 00:00:00 00:00:00 [facility] 2021-06-01 2021-06-01 Outpatient STLMLC STLMLC [id number] Common 00:00:00 00:00:00 [facility] 2021-04-29 2021-04-29 Outpatient STLMLC STLMLC [id number] Common 00:00:00 00:00:00 [facility] 2021-03-102021-03-10 Outpatient STLMLC STLMLC [id number] Common 00:00:00 00:00:00 [facility] 2021-03-05 2021-03-05 Outpatient STLMLC STLMLC [id number] Common 00:00:00 00:00:00 [facility] 2021-02-17 2021-02-17 Outpatient STLMLC STLMLC [id number] Common 00:00:00 00:00:00 [facility] 2021-02-16 2021-02-16 Outpatient STLMLC STLMLC [id number] Common 00:00:00 00:00:00 [facility] 2021-02-12 2021-02-12 Outpatient STLMLC STLMLC [id number] Common 00:00:00 00:00:00 [facility] 2021-02-11 2021-02-11 Outpatient STLMLC STLMLC [id number] Common 00:00:00 00:00:00 [facility] 2021-01-21 2021-01-21 Outpatient STLMLC STLMLC [id number] Common 00:00:00 00:00:00 [facility] 2021-01-02 2021-01-02 Outpatient STLMLC STLMLC [id number] Common 00:00:00 00:00:00 [facility] 2020-10-24 2020-10-24 Outpatient STLMLC STLMLC [id number] Common 00:00:00 00:00:00 [facility] 2020-10-07 2020-10-07 Outpatient STLMLC STLMLC [id number] Common 00:00:00 00:00:00 [facility] 2020-10-07 2020-10-07 Outpatient STLMLC STLMLC [id number] Common 00:00:00 00:00:00 [facility] 2020-10-07 2020-10-07 Outpatient STLMLC STLMLC [id number] Common 00:00:00 00:00:00 [facility] 2020-08-27 2020-08-27 Outpatient STLMLC STLMLC [id number] Common 00:00:00 00:00:00 [facility] 2020-07-23 2020-07-23 [id number] Common 08:40:00 08:40:[address] [facility] [facility] 2020-07-22 2020-07-22 [facility] [id number] Common 17:01:00 17:01:[address] [facility] 2020-07-07 2020-07-07 [facility] [id number] Common 16:22:00 16:22:[address] [facility] 2020-07-04 2020-07-04 [facility] [id number] Common 11:20:00 11:20:[address] [facility] 2020-07-04 2020-07-04 [facility] [id number] Common 08:10:00 08:10:[address] [facility] 2020-04-22 2020-04-22 [facility] [id number] Common 13:20:00 13:20:[address] [facility] 2019-11-21 2019-11-21 Office Lezama [facility] [id number] 14:51:13 16:43:49 Visit Leah AMBULATOR [id number] 2019-10-23 2019-10-23 [facility] [id number] Common 13:20:00 13:20:[address] [facility] 2019-08-02 2019-08-02 [facility] [id number] Common 10:02:00 10:02:[address] [facility] 2019-07-25 2019-07-25 [facility] [id number] Common 09:40:00 09:40:[address] [facility] 2019-05-22 2019-05-22 [facility] [id number] Common 09:20:00 09:20:[address] [facility] 2019-04-24 2019-04-24 [facility] [id number] Common 09:40:00 09:40:[address] [facility] 2019-02-01 2019-02-01 [facility] [id number] Common 09:30:00 09:30:[address] [facility] 2019-01-16 2019-01-16 [facility] [id number] Common 09:25:00 09:25:[address] [facility] 2018-12-18 2018-12-18 [facility] [id number] Common 13:34:00 13:34:[address] [facility] 2018-12-18 2018-12-18 [facility] [id number] Common 09:00:00 09:00:[address] [facility] 2018-12-15 2018-12-15 [facility] [id number] Common 10:47:00 10:47:[address] [facility] 2018-10-24 2018-10-24 [facility] [id number] Common 08:30:00 08:30:[address] [facility] Results Test Description Test Time Test Comments Results Result Sour e Comments TISSUE EXAM 2019-11-02 Surgical Pathology 17:32:00 Report Case: [id number] Authorizing Provider: Leah Lezama MD Collected: 10/30/2019 1037 Ordering Location: [facility] PERIOPERATIVE Received: 10/31/2019 0846 SERVICES [...] BY TUMOR Signing Pathologist Direct Phone Line: [phone] ally signed by Yan Hays MD on 11/02/2019 at 5:32 PMThe invasive component represents no more than 5% of the total tumor mass. [id number] X 2Preoperative and postoperative diagnoses: bladder tumorA. [...] Test Item Value Reference Range Interpretation Comme [facility] POC-GLUCOSE METER (BERASHAUN) 76 mg/dL 70-110 : TESTED AT [facility] [address] (test code = 1538) [place], [id number]: Counter Attendant/Techni jordana ID = [id number] for SEBASTIAN LINO
[2023-05-21] MEDS ORDERED: ACETAMINOPHEN 325 MG TABLET ONE (21:22)
--- NOTE | 2023-05-21 22:22 | RAD REPORT ---
EXAM DESCRIPTION: CT - Head C Spine Mpr Wo Con - 05/21/2023 10:07 pm CLINICAL HISTORY: Head and neck injury status post fall. Head and neck pain COMPARISON: 2020 TECHNIQUE: Computed axial tomography of the head and cervical spine was obtained. Sagittal and coronal reconstruction was performed. All CT scans are performed using dose optimization technique as appropriate and may include automated exposure control or mA/KV adjustment according to patient size. FINDINGS: An intracranial bleed is not seen. Mild prominence of ventricles probably related to cereb ral atrophy No significant hypodensity within the brain. An extra-axial fluid collection is not noted. Small amount of fluid within the maxillary sinuses may indicate acute sinusitis A cervical fracture is not visualized. No dislocation is noted. Mild posterior subluxation C3 on C4, mild posterior subluxation C6 on C7 and mild anterior subluxatio n C7 on T1 unchanged IMPRESSION: No acute intracranial abnormality is seen. A cervical fracture is not visualized. If the patient continues to have symptoms to suggest intracranial /spinal cord pathology then MRI wou ld be recommended
--- NOTE | 2023-05-21 22:30 | EDPHYS ---
Physician Documentation [facility] Name: Noah Whyte Age: 82 yrs Sex: Male : 1940 Arrival Date: 05/21/2023 Time: 20:39 Bed 17 Private MD: ED Physician Dilan Seo HPI: 05/21 21:15 This 82 yrs old Male presents to ER via Ambulatory with complaints of Fall Injury, Head cp Injury Without LOC-Adult. 21:15 Details of fall: The patient fell from an upright position, while walking. Onset: The cp symptoms/episode began/occurred just prior to arrival. Associated injuries: The patient sustained injury to the head, contusion, swelling, tenderness. Patient reports he was outside in yard when he stumbled after stepping in hole in yard and fell back, striking back of head against cement bird bath. Denies LOC. Historical: - Allergies: 20:46 Clarithromycin; vc1 20:46 Levofloxacin; vc1 - PMHx: 20:46 Anemia; Bladder Tumor - Cancer; GERD; High Cholesterol; Hypertension; Hypothyroidism; vc1 - PSHx: 20:46 back; cataract repair; TURP; vc1 - Immunization history:: Client reports receiving the 2nd dose of the Covid vaccine, Plus 2 boosters: Moderna Last tetanus immunization: < 10 years ago 07/21/14. Pneumococcal vaccine is up to date, Flu vaccine is up to date. - Social history:: Smoking status: Patient denies any tobacco usage or history of. ROS: 21:20 Constitutional: Negative for body aches, chills, fever. cp 21:20 Neck: Negative for pain with movement, pain at rest, stiffness. cp 21:20 Cardiovascular: Negative for chest pain. 21:20 Respiratory: Negative for cough, shortness of breath, wheezing. 21:20 Abdomen/GI: Negative for abdominal pain, vomiting, diarrhea, constipation. 21:20 Back: Negative for pain at rest, pain with movement. 21:20 MS/extremity: Negative for injury or acute deformity, decreased range of motion. 21:20 Neuro: Positive for headache, Negative for altered mental status, dizziness, loss of consciousness, weakness. 21:20 All other systems are negative. Exam: 21:25 Constitutional: The patient appears in no acute distress, alert, awake, comfortable, cp non-diaphoretic, non-toxic, well developed, well nourished. 21:25 Head/face: Noted is swelling, that is mild, of the occipital area of scalp, cp tenderness, that is mild. 21:25 Eyes: Periorbital structures: appear normal, Pupils: equal, round, and reactive to light and accomodation, Extraocular movements: intact throughout, Conjunctiva: normal, no exudate, no injection, Sclera: no appreciated abnormality, Lids and lashes: appear normal, bilaterally. 21:25 ENT: External ear(s): are unremarkable, Ear canal(s): are normal, clear, TM's: dullness, bilaterally, Nose: is normal, Mouth: Lips: moist, Oral mucosa: pink and intact, moist, Posterior pharynx: is normal, airway is patent, no erythema, no exudate. 21:25 Neck: C-spine: vertebral tenderness, is not appreciated, crepitus, is not appreciated, ROM/movement: is normal, is supple, without pain, no range of motions limitations, no nuchal rigidity. 21:25 Chest/axilla: Inspection: normal, Palpation: is normal, no crepitus, no tenderness. 21:25 Cardiovascular: Rate: normal. 21:25 Respiratory: the patient does not display signs of respiratory distress, Respirations: normal, no use of accessory muscles, no retractions, labored breathing, is not present, Breath sounds: are clear throughout, no decreased breath sounds, no stridor, no wheezing. 21:25 Abdomen/GI: Inspection: abdomen appears normal, Palpation: abdomen is soft and non-tender, in all quadrants. 21:25 Back: pain, is absent, ROM is normal. 21:25 Musculoskeletal/extremity: Exam is negative for decreased range of motion, deformity. 21:25 Neuro: Orientation: to person, place \T\ time. Mentation: is normal, Motor: moves all fours, strength is normal, Sensation: is normal. Vital Signs: 20:44 Pulse 64; Resp 12; Temp 98.7; Pulse Ox 96% ; Weight 72.57 kg; Height 5 ft. 8 in. ; Pain vc1 1/10; 20:46 BP 155 / 85; vc1 21:39 BP 125 / 67; Pulse 57; Resp 17 S; Pulse Ox 97% on R/A; ha1 22:40 BP 134 / 70; Pulse 58; Resp 18; Pulse Ox 97% on R/A; Pain 2/10; ha1 20:44 Body Mass Index 24.33 (72.57 kg, 172.72 cm) vc1 20:44 Pain Scale: Adult vc1 22:40 Pain Scale: Adult ha1 MDM: 21:06 Patient medically screened. cp 22:30 Data reviewed: vital signs, nurses notes, radiologic studies, CT scan, and as a result, cp I will discharge patient. 22:30 Differential diagnosis: closed head injury, contusion, fracture, laceration, multiple cp trauma. Counseling: I had a detailed discussion with the patient and/or guardian regarding: the historical points, exam findings, and any diagnostic results supporting the discharge/admit diagnosis, radiology results, to return to the emergency department if symptoms worsen or persist or if there are any questions or concerns that arise at home. Special discussion: Based on the patient's history, exam and DX evaluation, there is no indication for emergent intervention or inpatient TX. It is understood by the patient/guardian that if the SXs persist or worsen they need to return immediately for re-evaluation. 05/21 21:06 Order name: CT Head C Spine; Complete Time: 22:28 cp 05/21 22:29 Interpretation: Reviewed report. cp Administered Medications: 21:20 Drug: Acetaminophen PO 650 mg Route: PO; pf1 22:20 Follow up: Response: No adverse reaction; Marked relief of symptoms; Pain is decreased ha1 Disposition Summary: 05/21/23 22:30 Discharge Ordered Location: Home cp Problem: new cp Symptoms: have improved cp Condition: Stable cp Diagnosis - Contusion of scalp, initial encounter cp Followup: cp - With: Private Physician - When: 1 - 2 days - Reason: Worsening of condition Discharge Instructions: - Discharge Summary Sheet cp - Facial or Scalp Contusion cp - Head Injury, Adult cp Forms: - Medication Reconciliation Form cp - Thank You Letter cp - Antibiotic Education cp - Prescription Opioid Use cp - [email or web address] cp Signatures: Dispatcher [employer] EDMS Wally Goel PA PA cp Calcote, Vanessa, RN RN vc1 Deisy De Santiago RN RN pf1 Sherri Mcfarlane RN ha1 Corrections: (The following items were deleted from the chart) 05/22 22:45 05/21 21:15 Patient reports he was outside in yard when he stumbled after stepping in cp hole in yard and fell back, striking back of head against concrete. cp
--- NOTE | 2023-05-21 22:30 | ER ---
Nurse's Notes [facility] Name: Noah Whyte Age: 82 yrs Sex: Male : 1940 Arrival Date: 05/21/2023 Time: 20:39 Bed 17 Private MD: Diagnosis: Contusion of scalp, initial encounter Presentation: 05/21 20:44 Chief complaint: Patient states: I stepped in a hole and fell backwards hitting my head vc1 against the base of the cement bird bath. Coronavirus screen: Client denies travel out of the [place] in the last 14 days. At this time, the client does not indicate any symptoms associated with coronavirus-19. Ebola Screen: Patient negative for fever greater than or equal to 101.5 degrees Fahrenheit, and additional compatible Ebola Virus Disease symptoms Patient denies exposure to infectious person. Patient denies travel to an Ebola-affected area in the 21 days before illness onset. No symptoms or risks identified at this time. Initial Sepsis Screen: Does the patient meet any 2 criteria? No. Patient's initial sepsis screen is negative. Does the patient have a suspected source of infection? No. Patient's initial sepsis screen is negative. Risk Assessment: Do you want to hurt yourself or someone else? Patient reports no desire to harm self or others. Note No LOC. Onset of symptoms was May 21, 2023. 20:44 Method Of Arrival: Ambulatory vc1 20:44 Acuity: JAIMIE 4 vc1 Triage Assessment: 20:48 General: Appears in no apparent distress. comfortable, Behavior is calm, cooperative, vc1 appropriate for age. Pain: Complains of pain in right parietal area Pain does not radiate. Pain currently is 1 out of 10 on a pain scale. Quality of pain is described as aching, Pain began suddenly, Aggravated by touch. EENT: No deficits noted. No signs and/or symptoms were reported regarding the EENT system. Neuro: Rose Agitation-Sedation Scale (RASS): 0 - Alert and Calm Level of Consciousness is awake, alert, obeys commands, Oriented to person, place, time, situation, Appropriate for age. Cardiovascular: No deficits noted. Respiratory: Airway is patent Respiratory effort is even, unlabored, Respiratory pattern is regular, symmetrical. GI: No deficits noted. No signs and/or symptoms were reported involving the gastrointestinal system. : No deficits noted. No signs and/or symptoms were reported regarding the genitourinary system. Derm: No deficits noted. No signs and/or symptoms reported regarding the dermatologic system. Musculoskeletal: No deficits noted. No signs and/or symptoms reported regarding the musculoskeletal system. Injury Description: Head injury sustained to right parietal area is closed, did not have loss of consciousness. Historical: - Allergies: 20:46 Clarithromycin; vc1 20:46 Levofloxacin; vc1 - PMHx: 20:46 Anemia; Bladder Tumor - Cancer; GERD; High Cholesterol; Hypertension; Hypothyroidism; vc1 - PSHx: 20:46 back; cataract repair; TURP; vc1 - Immunization history:: Client reports receiving the 2nd dose of the Covid vaccine, Plus 2 boosters: Moderna Last tetanus immunization: < 10 years ago 07/21/14. Pneumococcal vaccine is up to date, Flu vaccine is up to date. - Social history:: Smoking status: Patient denies any tobacco usage or history of. Screenin:00 [facility] ED Fall Risk Assessment (Adult) History of falling in the last 3 months, ha1 including since admission Yes- single mechanical fall (1 pt) Confusion or Disorientation No (0 pts) Intoxicated or Sedated No (0 pts) Impaired Gait No (0 pts) Mobility Assist Device Used No (0 pt) Altered Elimination No (0 pt) Score/Fall Risk Level 0 - 2 = Low Risk Oriented to surroundings, Maintained a safe environment, Educated pt \T\ family on fall prevention, incl call for assistance when getting out of bed, Assessed \T\ reinforced patient's understanding of fall precautions, Provided non-skid footwear, Hourly rounding (assess needs \T\ fall precautionary measures) done, Used ambulatory aids as needed (educated on \T\ assisted with), Used gait belt as appropriate. 21:00 Abuse screen: Denies threats or abuse. Nutritional screening: No deficits noted. ha1 Tuberculosis screening: No symptoms or risk factors identified. Assessment: 21:00 General: Appears comfortable, Behavior is calm, cooperative. Pain: Complains of pain in ha1 back of head Pain does not radiate. Pain currently is 1 out of 10 on a pain scale. Quality of pain is described as tender. Neuro: Level of Consciousness is awake, alert, obeys commands, Oriented to person, place, time, situation. Cardiovascular: Patient's skin is warm and dry. Respiratory: Airway is patent Respiratory effort is even, unlabored, Respiratory pattern is regular, symmetrical. GI: No signs and/or symptoms were reported involving the gastrointestinal system. : No signs and/or symptoms were reported regarding the genitourinary system. Musculoskeletal: Circulation, motion, and sensation intact. Range of motion: intact in all extremities. 22:00 Reassessment: Patient appears in no apparent distress at this time. Patient and/or ha1 family updated on plan of care and expected duration. Pain level reassessed. Patient is alert, oriented x 3, equal unlabored respirations, skin warm/dry/pink. Patient states symptoms have improved. Vital Signs: 20:44 Pulse 64; Resp 12; Temp 98.7; Pulse Ox 96% ; Weight 72.57 kg; Height 5 ft. 8 in. ; Pain vc1 1/10; 20:46 BP 155 / 85; vc1 21:39 BP 125 / 67; Pulse 57; Resp 17 S; Pulse Ox 97% on R/A; ha1 22:40 BP 134 / 70; Pulse 58; Resp 18; Pulse Ox 97% on R/A; Pain 2/10; ha1 20:44 Body Mass Index 24.33 (72.57 kg, 172.72 cm) vc1 20:44 Pain Scale: Adult vc1 22:40 Pain Scale: Adult ha1 ED Course: 20:41 Patient arrived in ED. jj6 20:46 Triage completed. vc1 20:46 Arm band placed on right wrist. vc1 21:00 Patient has correct armband on for positive identification. Bed in low position. ha1 21:01 Wally Goel PA is PHCP. cp 21:01 Dilan Seo MD is Attending Physician. cp 21:07 Sherri Mcfarlane, KORI is Primary Nurse. ha1 22:09 CT Head C Spine In Process Unspecified. EDMS 22:54 No provider procedures requiring assistance completed. Patient did not have IV access ha1 during this emergency room visit. Administered Medications: 21:20 Drug: Acetaminophen PO 650 mg Route: PO; pf1 22:20 Follow up: Response: No adverse reaction; Marked relief of symptoms; Pain is decreased ha1 Medication: 22:55 VIS not applicable for this client. ha1 Outcome: 22:30 Discharge ordered by . cp 22:55 Discharged to home ambulatory, with family. ha1 22:55 Condition: improved 22:55 Discharge instructions given to patient, family, Instructed on discharge instructions, follow up and referral plans. Demonstrated understanding of instructions, follow-up care. 22:55 Patient left the ED. ha1 Signatures: Dispatcher [employer] EDMS Wally Goel PA PA cp Jeffries, Jennifer jj6 Susie Muniz RN RN 1 Sherri Mcfarlane RN RN ha1 Deisy De Santiago RN RN pf1
[2023-05-21 23:29] VITALS: TEMP 98.7
[2023-05-21 23:32] VITALS: O2SAT 97
[2023-05-21 23:34] VITALS: BP 134/70
== END 2023-05-21 22:55 | disposition home or self-care (01) ==
LOC: ER 20:39
DX: S00.03XA Contusion of scalp, initial encounter (principal); W01.198A Fall on same level from slipping, tripping and stumbling with subsequent striking against other object, initial encounter; Y93.9 Activity, unspecified; Y92.017 Garden or yard in single-family (private) house as the place of occurrence of the external cause; I10 Essential (primary) hypertension; E78.00 Pure hypercholesterolemia, unspecified; E03.9 Hypothyroidism, unspecified; Z85.51 Personal history of malignant neoplasm of bladder
CPT/HCPCS: 70450; 72125; 99283

== ENCOUNTER → 2023-12-05 | Emergency (ER) | payer OTHER ==
[~2023-12-05] MED LIST: NA CHLORIDE 0.9% 500 ML ONE
[2023-12-05 20:33] LABS: Absolute Lymphocytes (CBC) 1.1 K/uL (0.7-4.9); Hematocrit 32.7 % (39.6-49.0); MPV 7.5 fL (7.6-11.3); Platelets 191 thou/uL (152-406); RBC Red Blood Cell Count 3.55 M/uL (4.33-5.43)
[2023-12-05 21:28] LABS: Albumin 3.5 g/dL (3.4-5.0); Bilirubin Total 0.6 mg/dL (0.2-1.0); Potassium 4.3 mEq/L (3.5-5.1); Protein, Total 6.5 g/dL (6.4-8.2)
--- NOTE | 2023-12-05 21:44 | ER ---
Nurse's Notes [facility] Name: Noah Whyte Age: 83 yrs Sex: Male : 1940 Arrival Date: 12/05/2023 Time: 18:09 Bed 11 Private MD: Diagnosis: Hyponatremia , concerned about health status , Visit for medical examination and laboratory work Presentation: 12/05 18:47 Chief complaint: Patient states: Low sodium level of 131 today. Coronavirus screen: At ld1 this time, the client does not indicate any symptoms associated with coronavirus-19. Ebola Screen: No symptoms or risks identified at this time. Initial Sepsis Screen: Does the patient meet any 2 criteria? No. Patient's initial sepsis screen is negative. Does the patient have a suspected source of infection? No. Patient's initial sepsis screen is negative. Risk Assessment: Do you want to hurt yourself or someone else? Patient reports no desire to harm self or others. Onset of symptoms was December 05, 2023. 18:47 Method Of Arrival: Ambulatory ld1 18:47 Acuity: JAIMIE 3 ld1 Triage Assessment: 18:47 General: Appears in no apparent distress. comfortable, Behavior is calm, cooperative, ld1 appropriate for age. Pain: Denies pain. EENT: No signs and/or symptoms were reported regarding the EENT system. Neuro: Level of Consciousness is awake, alert, obeys commands, Oriented to person, place, time, situation. Cardiovascular: Capillary refill < 3 seconds Patient's skin is warm and dry. Respiratory: Airway is patent Respiratory effort is even, unlabored. GI: Abdomen is flat, non-distended. : No signs and/or symptoms were reported regarding the genitourinary system. Derm: No signs and/or symptoms reported regarding the dermatologic system. Musculoskeletal: No signs and/or symptoms reported regarding the musculoskeletal system. Historical: - Allergies: 18:46 Clarithromycin; ld1 18:46 Levofloxacin; ld1 - PMHx: 18:46 Anemia; High Cholesterol; Hypertension; Bladder Tumor - Cancer; GERD; Hypothyroidism; ld1 - PSHx: 18:46 back; cataract repair; TURP; ld1 - Immunization history:: Adult Immunizations up to date. - Social history:: Smoking status: Patient denies any tobacco usage or history of. Patient/guardian denies using alcohol. - Family history:: not pertinent. Screenin:47 [facility] ED Fall Risk Assessment (Adult) History of falling in the last 3 months, pf1 including since admission No falls in past 3 months (0 pts) Confusion or Disorientation No (0 pts) Intoxicated or Sedated No (0 pts) Impaired Gait No (0 pts) Mobility Assist Device Used No (0 pt) Altered Elimination No (0 pt) Score/Fall Risk Level 0 - 2 = Low Risk Oriented to surroundings, Maintained a safe environment, Educated pt \T\ family on fall prevention, incl call for assistance when getting out of bed, Assessed \T\ reinforced patient's understanding of fall precautions, Provided non-skid footwear, Hourly rounding (assess needs \T\ fall precautionary measures) done, Used ambulatory aids as needed (educated on \T\ assisted with), Used gait belt as appropriate. Abuse screen: Denies threats or abuse. Nutritional screening: No deficits noted. Tuberculosis screening: No symptoms or risk factors identified. Assessment: 20:30 General: Appears in no apparent distress. comfortable, well groomed, well developed, pf1 Behavior is calm, cooperative, appropriate for age, quiet. 20:30 Pain: Denies pain. Neuro: No deficits noted. Level of Consciousness is awake, alert, pf1 obeys commands, Oriented to person, place, time, situation, Reports Patient denies any symptoms. Patient C/O sodium level 131, results from Tuesday. . Cardiovascular: No deficits noted. Capillary refill < 3 seconds Patient's skin is warm and dry. Respiratory: No deficits noted. Airway is patent Respiratory effort is even, unlabored, Respiratory pattern is regular, symmetrical, Breath sounds are clear bilaterally. GI: No deficits noted. No signs and/or symptoms were reported involving the gastrointestinal system. : No deficits noted. No signs and/or symptoms were reported regarding the genitourinary system. EENT: No deficits noted. No signs and/or symptoms were reported regarding the EENT system. Derm: No deficits noted. No signs and/or symptoms reported regarding the dermatologic system. 21:30 Reassessment: Patient appears in no apparent distress at this time. Patient and/or pf1 family updated on plan of care and expected duration. Pain level reassessed. Patient is alert, oriented x 3, equal unlabored respirations, skin warm/dry/pink. Patient states feeling better. Patient states symptoms have improved. Vital Signs: 18:47 BP 153 / 71; Pulse 64; Resp 18; Temp 97.9(TE); Pulse Ox 95% on R/A; Weight 72.57 kg; ld1 Height 5 ft. 8 in. ; Pain 0/10; 20:58 BP 148 / 73; Pulse 55; Resp 16; Pulse Ox 98% on R/A; Pain 0/10; pf1 21:30 BP 138 / 75; Pulse 52; Resp 16; Pulse Ox 100% on R/A; Pain 0/10; pf1 18:47 Body Mass Index 24.33 (72.57 kg, 172.72 cm) ld1 18:47 Pain Scale: Adult ld1 20:58 Pain Scale: Adult pf1 21:30 Pain Scale: Adult pf1 ED Course: 18:11 Patient arrived in ED. rg4 18:17 Rafa lCay MD is Attending Physician. rt 18:47 Triage completed. ld1 18:47 Arm band placed on right wrist. ld1 20:00 Attending Physician role handed off by Rafa Clay MD sp4 20:00 Amol Varghese MD is Attending Physician. sp4 20:25 CMP Sent. jj7 20:25 CBC with Diff Sent. jj7 20:26 Inserted saline lock: 20 gauge in left antecubital area, using aseptic technique. Blood jj7 collected. 20:30 Patient has correct armband on for positive identification. Bed in low position. Call pf1 light in reach. Side rails up X 1. 20:48 No provider procedures requiring assistance completed. pf1 21:55 Provided Education on: follow up . pf1 21:55 IV discontinued, intact, bleeding controlled, No redness/swelling at site. Pressure pf1 dressing applied. Administered Medications: 20:25 Drug: NS 0.9% IV 500 ml IV at bolus once Route: IV; Rate: bolus; Site: left antecubital;jj7 20:59 Follow up: Response: No adverse reaction; Marked relief of symptoms; IV Status: pf1 Completed infusion; IV Intake: 500ml Medication: 21:56 VIS not applicable for this client. pf1 Intake: 20:59 IV: 500ml; Total: 500ml. pf1 Outcome: 21:44 Discharge ordered by . sp4 21:54 Discharged to home ambulatory, with family, pf1 21:54 Condition: improved 21:54 Discharge instructions given to patient, family, Instructed on discharge instructions, follow up and referral plans. Demonstrated understanding of instructions, follow-up care, 21:56 Patient left the ED. pf1 Signatures: Felisha Lyon rg4 Talita Main RN RN ld1 Guy Gallardo RN RN jj7 Rafa Clay MD MD rt Deisy De Santiago RN RN pf1 Amol Varghese MD MD sp4 Corrections: (The following items were deleted from the chart) 21:56 21:55 Patient has correct armband on for positive identification. Bed in low position. pf1 Call light in reach. Side rails up X 1. pf1
--- NOTE | 2023-12-05 21:44 | EDPHYS ---
Physician Documentation [facility] Name: Noah Whyte Age: 83 yrs Sex: Male : 1940 Arrival Date: 12/05/2023 Time: 18:09 Bed 11 Private MD: ED Physician Amol Varghese HPI: 12/05 20:16 This 83 yrs old Male presents to ER via Ambulatory with complaints of Abnormal Lab rt Results. 20:16 Patient presents to the ED with outpatient labs showing a sodium level of 131. He is rt concerned that this is a slow. He denies any symptoms at this time. He is not currently taking any diuretics. Symptoms are mild in severity, no other aggravating leaving factors.. Historical: - Allergies: 18:46 Clarithromycin; ld1 18:46 Levofloxacin; ld1 - PMHx: 18:46 Anemia; High Cholesterol; Hypertension; Bladder Tumor - Cancer; GERD; Hypothyroidism; ld1 - PSHx: 18:46 back; cataract repair; TURP; ld1 - Immunization history:: Adult Immunizations up to date. - Social history:: Smoking status: Patient denies any tobacco usage or history of. Patient/guardian denies using alcohol. - Family history:: not pertinent. ROS: 20:16 Constitutional: Negative for fever, chills, and weight loss, Eyes: Negative for injury, rt pain, redness, and discharge, Cardiovascular: Negative for chest pain, palpitations, and edema, Respiratory: Negative for shortness of breath, cough, wheezing, and pleuritic chest pain, Abdomen/GI: Negative for abdominal pain, nausea, vomiting, diarrhea, and constipation, MS/Extremity: Negative for injury and deformity, Skin: Negative for injury, rash, and discoloration, Neuro: Negative for headache, weakness, numbness, tingling, and seizure, Psych: Negative for depression, anxiety, suicide ideation, homicidal ideation, and hallucinations, Exam: 20:16 Constitutional: This is a well developed, well nourished patient who is awake, alert, rt and in no acute distress. Head/Face: Normocephalic, atraumatic. Chest/axilla: Normal chest wall appearance and motion. Nontender with no deformity. No lesions are appreciated. Cardiovascular: Regular rate and rhythm with a normal S1 and S2. No gallops, murmurs, or rubs. Normal PMI, no JVD. No pulse deficits. Respiratory: Lungs have equal breath sounds bilaterally, clear to auscultation and percussion. No rales, rhonchi or wheezes noted. No increased work of breathing, no retractions or nasal flaring. Abdomen/GI: Soft, non-tender, with normal bowel sounds. No distension or tympany. No guarding or rebound. No evidence of tenderness throughout. Skin: Warm, dry with normal turgor. Normal color with no rashes, no lesions, and no evidence of cellulitis. MS/ Extremity: Pulses equal, no cyanosis. Neurovascular intact. Full, normal range of motion. Neuro: Awake and alert, GCS 15, oriented to person, place, time, and situation. Cranial nerves II-XII grossly intact. Motor strength 5/5 in all extremities. Sensory grossly intact. Cerebellar exam normal. Normal gait. Psych: Awake, alert, with orientation to person, place and time. Behavior, mood, and affect are within normal limits. Vital Signs: 18:47 BP 153 / 71; Pulse 64; Resp 18; Temp 97.9(TE); Pulse Ox 95% on R/A; Weight 72.57 kg; ld1 Height 5 ft. 8 in. ; Pain 0/10; 20:58 BP 148 / 73; Pulse 55; Resp 16; Pulse Ox 98% on R/A; Pain 0/10; pf1 21:30 BP 138 / 75; Pulse 52; Resp 16; Pulse Ox 100% on R/A; Pain 0/10; pf1 18:47 Body Mass Index 24.33 (72.57 kg, 172.72 cm) ld1 18:47 Pain Scale: Adult ld1 20:58 Pain Scale: Adult pf1 21:30 Pain Scale: Adult pf1 MDM: 18:56 Patient medically screened. rt 21:42 Differential Diagnosis altered mental status, sepsis, flu, Hyponatremia . Data sp4 reviewed: vital signs, nurses notes, lab test result(s), electrolytes, sodium. Consideration of Admission/Observation Escalation of care including admission/observation considered. ED course: Sodium today is 136. Patient stable for discharge home. Advised to call lan/wan engineer Dr. Fitzgerald Tomorrow morning for additional advise . 12/05 18:56 Order name: CBC with Diff; Complete Time: 21:01 rt 12/05 18:56 Order name: CMP; Complete Time: 21:35 rt Administered Medications: 20:25 Drug: NS 0.9% IV 500 ml IV at bolus once Route: IV; Rate: bolus; Site: left antecubital;jj7 20:59 Follow up: Response: No adverse reaction; Marked relief of symptoms; IV Status: pf1 Completed infusion; IV Intake: 500ml Disposition Summary: 12/05/23 21:44 Discharge Ordered Problem: new sp4 Symptoms: have improved sp4 Condition: Stable sp4 Diagnosis - Hyponatremia , concerned about health status , Visit for medical examination and sp4 laboratory work Followup: sp4 - With: Private Physician - When: Tomorrow - Reason: Recheck today's complaints Discharge Instructions: - Discharge Summary Sheet sp4 - Hyponatremia, [id number] sp4 Forms: - Patient Portal Instructions sp4 Signatures: Dispatcher [employer] EDTalita Cardoza RN RN ld1 Guy Gallardo RN RN jj7 Rafa Clay MD MD rt Amol Varghese MD MD sp4 Deisy De Santiago RN pf1
[2023-12-06 03:20] VITALS: TEMP 97.9
[2023-12-06 03:33] VITALS: BP 138/75; O2SAT 100
== END ==
LOC: ER 18:09
DX: E87.1 Hypo-osmolality and hyponatremia (principal); E78.00 Pure hypercholesterolemia, unspecified; I10 Essential (primary) hypertension; Z88.1 Allergy status to other antibiotic agents; Z88.3 Allergy status to other anti-infective agents
CPT/HCPCS: 85025; 36415; 80053; 96360; 99284; J7040

== ENCOUNTER 2024-12-19 09:56 | Observation (INO) | payer OTHER ==
[2024-12-19] MEDS ORDERED: NA CHLORIDE 0.9% 1,000 ML ONE ×2 (10:43→18:04)
[2024-12-19 11:26] LABS: Specific Gravity 1.008 (1.005-1.030); Urine Bilirubin NEGATIVE (Negative); Urine Blood Negative (Negative); Urine Clarity Clear (Clear); Urine Color Light-Yellow (Yellow); Urine Glucose NEGATIVE (Negative); Urine Ketones NEGATIVE (Negative); Urine Microscopic Reflex YN NO UMIC; Urine Nitrite NEGATIVE (Negative); Urine Protein NEGATIVE (Negative); Urine Urobilinogen Normal (Normal)
[2024-12-19 12:03] LABS: PT Prothrombin Time 10.7 SECONDS (9.4-12.5); Protime INR 1.02; SARS-CoV-2 Antigen CONTROL BLUE LINE VIS/BG OK; SARS-CoV-2 Antigen Rapid Res Negative (Negative)
[2024-12-19 12:06] LABS: Absolute Eosinophils 0.1 K/uL (0-0.5); Absolute Lymphocytes (CBC) 0.8 K/uL (0.7-4.9); Absolute Monocytes 0.4 K/uL (0.1-1.3); Absolute Neutrophil 2.8 K/uL (1.8-8.0); Basophils % 0.9 % (0-1.3); Eosinophils % 1.8 % (0-4.4); Hematocrit 33.1 % (39.6-49.0); Hemoglobin 11.5 g/dL (13.6-17.9); Lymphocytes % 20.1 % (15.3-44.8); MCH 31.4 pg (27.0-35.0); MCHC 34.8 g/dL (32.0-36.0); MCV 90.4 fL (80-100); MPV 8.7 fL (7.6-11.3); Monocytes % 10.7 % (3.3-12.3); Neutrophils % 66.5 % (41.7-73.7); Nucleated Red Blood Cells % 0.1 % (0-0); Platelets 171 thou/uL (152-406); RBC Red Blood Cell Count 3.66 M/uL (4.33-5.43); Red Cell Distribution Width 13.9 % (12.1-15.2)
[2024-12-19 12:12] LABS: Albumin 3.5 g/dL (3.4-5.0); Albumin/Globulin Ratio 1.2 (1.1-1.8); Bilirubin Direct 0.2 mg/dL (0-0.2); Bilirubin Indirect, Calculated 0.5 mg/dL (0.2-0.8); Bilirubin Total 0.7 mg/dL (0.2-1.0); Magnesium 2.1 mg/dL (1.6-2.4); Protein, Total 6.5 g/dL (6.4-8.2)
--- NOTE | 2024-12-19 12:39 | ER ---
Nurse's Notes [facility] Name: Noah Whyte Age: 84 yrs Sex: Male : 1940 Arrival Date: 12/19/2024 Time: 09:56 Bed 20 Private MD: Diagnosis: Weakness;Bradycardia, unspecified;Syncope Near Presentation: 12/19 10:23 Chief complaint: Patient states: For the last 2 weeks pt has been having periods of cm10 weakness and anxiety. Pt states that it was worse last night. Pt reports that he has a history of hyponatremia. Coronavirus screen: Client denies travel out of the [place] in the last 14 days. Ebola Screen: Patient denies travel to an Ebola-affected area in the 21 days before illness onset. Initial Sepsis Screen: Does the patient meet any 2 criteria? No. Patient's initial sepsis screen is negative. Does the patient have a suspected source of infection? No. Patient's initial sepsis screen is negative. Risk Assessment: Do you want to hurt yourself or someone else? Patient reports no desire to harm self or others. Onset of symptoms was December 19, 2024. 10:23 Method Of Arrival: Ambulatory cm10 10:23 Acuity: JAIMIE 3 cm10 Triage Assessment: 10:25 General: Appears in no apparent distress. comfortable, Behavior is calm, cooperative. cm10 Pain: Denies pain. Neuro: No deficits noted. Level of Consciousness is awake, alert, obeys commands, Oriented to person, place, time, situation, Appropriate for age Reports weakness. Respiratory: No deficits noted. Airway is patent Respiratory effort is even, unlabored, Respiratory pattern is regular, symmetrical. Musculoskeletal: No deficits noted. Range of motion: intact in all extremities. Historical: - Allergies: 10:24 Clarithromycin; cm10 10:24 Levofloxacin; cm10 - PMHx: 10:24 Anemia; Bladder Tumor - Cancer; GERD; High Cholesterol; Hypertension; Hypothyroidism; cm10 Hyponatremia; - PSHx: 10:24 cataract repair; back; TURP; cm10 - Immunization history:: Adult Immunizations up to date. - Infectious Disease History:: Denies. - Social history:: Smoking status: Patient denies any tobacco usage or history of. Screenin:00 [facility] ED Fall Risk Assessment (Adult) History of falling in the last 3 months, bm7 including since admission No falls in past 3 months (0 pts) Confusion or Disorientation No (0 pts) Intoxicated or Sedated No (0 pts) Impaired Gait No (0 pts) Mobility Assist Device Used No (0 pt) Altered Elimination No (0 pt) Score/Fall Risk Level 0 - 2 = Low Risk. Abuse screen: Denies threats or abuse. Nutritional screening: No deficits noted. Tuberculosis screening: No symptoms or risk factors identified. Assessment: 11:00 General: Appears in no apparent distress. comfortable, well groomed, Behavior is calm, bm7 cooperative, appropriate for age. Pain: Complains of pain in right lateral anterior chest and right lateral posterior chest Pain does not radiate. Neuro: No deficits noted. Level of Consciousness is awake, alert, obeys commands, Oriented to person, place, time. Cardiovascular: Reports fatigue, Denies chest pain, lightheadedness, shortness of breath, Heart tones S1 S2 Rhythm is sinus bradycardia. Respiratory: No deficits noted. GI: No deficits noted. No signs and/or symptoms were reported involving the gastrointestinal system. : No deficits noted. No signs and/or symptoms were reported regarding the genitourinary system. EENT: No deficits noted. No signs and/or symptoms were reported regarding the EENT system. Derm: No deficits noted. No signs and/or symptoms reported regarding the dermatologic system. Musculoskeletal: Reports pain in right arm, left arm, right leg and left leg. 11:48 VAN Scoring: Arm Drift: Patients demonstrates NO arm weakness. Patient is VAN Negative. bm7 [place] Swallow Protocol. Reassessment: Patient appears in no apparent distress at this time. 11:53 Reassessment: No changes from previously documented assessment. Patient and/or family bm7 updated on plan of care and expected duration. Pain level reassessed. Patient is alert, oriented x 3, equal unlabored respirations, skin warm/dry/pink. 12:00 Reassessment: Patient appears in no apparent distress at this time. Patient and/or jb4 family updated on plan of care and expected duration. Pain level reassessed. Patient is alert, oriented x 3, equal unlabored respirations, skin warm/dry/pink. 12:10 Reassessment: ERP AT BEDSIDE TO ASSESS. bm7 13:00 Reassessment: Patient appears in no apparent distress at this time. Patient and/or jb4 family updated on plan of care and expected duration. Pain level reassessed. Patient is alert, oriented x 3, equal unlabored respirations, skin warm/dry/pink. 14:00 Reassessment: Patient appears in no apparent distress at this time. Patient and/or jb4 family updated on plan of care and expected duration. Pain level reassessed. Patient is alert, oriented x 3, equal unlabored respirations, skin warm/dry/pink. 15:00 Reassessment: Patient appears in no apparent distress at this time. Patient and/or jb4 family updated on plan of care and expected duration. Pain level reassessed. Patient is alert, oriented x 3, equal unlabored respirations, skin warm/dry/pink. 16:00 Reassessment: Patient appears in no apparent distress at this time. Patient and/or jb4 family updated on plan of care and expected duration. Pain level reassessed. Patient is alert, oriented x 3, equal unlabored respirations, skin warm/dry/pink. Vital Signs: 10:23 BP 143 / 72; Pulse 58; Resp 15; Temp 97.7; Pulse Ox 98% on R/A; Weight 73.48 kg; Height cm10 5 ft. 8 in. ; Pain 0/10; 11:00 BP 123 / 68 LA Supine (auto/reg); Pulse 50; Resp 16; Pulse Ox 97% on R/A; Pain 0/10; bm7 11:00 BP 149 / 70; Pulse 54; Resp 18; Pulse Ox 98% on R/A; Pain 2/10; bm7 12:05 BP 138 / 71; Pulse 48; Resp 16; Temp 98.7; Pulse Ox 100% on R/A; Pain 0/10; bm7 12:20 BP 158 / 42 RA Supine (/reg); Pulse 50; Resp 18; Pulse Ox 98% on R/A; Pain 0/10; bm7 12:20 BP 152 / 76 LA Sitting (auto/reg); Pulse 53; Resp 16; Pulse Ox 100% on R/A; Pain 0/10; bm7 12:20 BP 148 / 73 LA Standing (auto/reg); Pulse 58; Resp 18; Pulse Ox 100% on R/A; Pain 0/10; bm7 13:00 BP 147 / 80; Pulse 51; Resp 16; Pulse Ox 98% on R/A; jb4 14:00 BP 140 / 74; Pulse 49; Resp 16; Pulse Ox 93% ; jb4 10:23 Body Mass Index 24.63 (73.48 kg, 172.72 cm) cm10 10:23 Pain Scale: Adult cm10 11:00 Pain Scale: Adult bm7 11:00 Pain Scale: Adult bm7 12:05 Pain Scale: Adult bm7 12:20 Pain Scale: Adult bm7 12:20 Pain Scale: Adult bm7 12:20 Pain Scale: Adult bm7 Vitals: 11:00 Cardiac Rhythm Assessment Sinus teofilo. bm7 NIH Stroke Scale Scores: 11:48 NIHSS Score: 0 bm7 ED Course: 09:59 Patient arrived in ED. mr 10:00 Wally Chaves MD is Attending Physician. [facility] 10:24 Triage completed. cm10 10:25 Arm band placed on right wrist. Patient placed in waiting room. cm10 10:49 Jolynn Dominguez, RN is Primary Nurse. ss 11:00 No apparent distress. Resting quietly. Awaiting lab results, Awaiting ED provider 7 evaluation. 11:00 Patient has correct armband on for positive identification. Placed in gown. Bed in low bm7 position. Call light in reach. Side rails up X 1. Adult w/ patient. Report received from triage nurse. conveyor monitor on. Pulse ox on. NIBP on. Warm blanket given. Head of bed elevated. Assisted to bathroom. 11:00 Assisted with urinal. bm7 11:00 No provider procedures requiring assistance completed. Initial lab(s) drawn, by co, [facility] Urine collected: clean catch specimen, clear, EKG done, by ED staff, reviewed by Wally Chaves MD COVID swab sent to lab. Flu and/or RSV swab sent to lab. X-ray(s) taken. Inserted saline lock: 20 gauge in right antecubital area, using aseptic technique. Blood collected. Patient maintains SpO2 saturation greater than 95% on room air. 12:05 First set of blood cultures drawn by me, Second set of blood cultures drawn by me. bm7 12:38 XRAY Chest (1 view) In Process Unspecified. EDMS 12:38 Anabela Bazzi MD is Hospitalizing Provider. [facility] 16:00 Provided Education on: need for admit. jb4 16:00 Patient admitted, IV remains in place. jb4 12/20 01:51 IV discontinued, intact, bleeding controlled, No redness/swelling at site. Pressure kmf dressing applied. 01:58 Inserted saline lock: 20 gauge in left forearm, using aseptic technique. Flushed with kmf 10 mL NS. Administered Medications: 12/19 11:47 Drug: NS 0.9% IV 1000 ml IV at 1000 ml once; to be given as a bolus over 60 minutes bm7 Route: IV; Rate: 1000 ml; Site: right antecubital; 13:06 Follow up: IV Status: Completed infusion; IV Intake: 1000ml bm7 Medication: 11:00 VIS not applicable for this client. bm7 Intake: 13:06 IV: 1000ml; Total: 1000ml. bm7 Outcome: 12:39 Decision to Hospitalize by Provider. larry 16:00 Admitted to ER Hold. Please see CareParent for further documentation. jb4 16:00 Condition: stable 16:00 Discharge instructions given to patient, Instructed on the need for admit, Demonstrated understanding of instructions, 12/20 11:38 Patient left the ED. aa5 NIH Stroke Scale - NIH Stroke Score Date: 12/19/2024 Time: 11:48 Total Score = 0 10. Dysarthria (speech clarity - read or repeat words) - 0(Normal) 11. Extinction and Inattention (visual/tactile/auditory/spatial/personal) - 0(No abnormality) 1a. Level of Consciousness (LOC) - 0(Alert) 1b. Level of Consciousness (LOC) (Month \T\ Age) - 0(Both) 1c. LOC Commands (Open \T\ Closes Eyes/Spray Drier Operator) - 0(Both) 2. Best Gaze (Lateral Gaze Paresis) - 0(Normal) 3. Visual Field Loss - 0(No visual loss) 4. Facial Palsy - 0(Normal) 5a. Left Arm: Motor (10-second hold) - 0(No drift) 5b. Right Arm: Motor (10-second hold) - 0(No drift) 6a. Left Leg: Motor (5-second hold - always test supine) - 0(No drift) 6b. Right Leg: Motor (5-second hold - always test supine) - 0(No drift) 7. Limb Ataxia (finger/nose \T\ heel/mccullough - test with eyes open) - 0(Absent) 8. Sensory Loss (pinprick arms/legs/face) - 0(Normal) 9. Best Language: Aphasia (description/naming/reading) - 0(No aphasia) Initials: bm7 Signatures: Dispatcher [employer] EDWally Hernandez MD MD cha Rivera, Susy, Reg Reg mr Winston, Mi, RN RN aa5 Jolynn Dominguez, KORI RN ss Juno Andrews, KORI RN jb4 Echo Davalos, KORI RN bm7 Anais Muse RN RN cm10 Karuna Laughlin [facility]
--- NOTE | 2024-12-19 12:39 | EDPHYS ---
Physician Documentation [facility] Name: Noah Whyte Age: 84 yrs Sex: Male : 1940 Arrival Date: 12/19/2024 Time: 09:56 Bed 20 Private MD: ED Physician Wally Chaves HPI: 12/19 12:28 This 84 yrs old Male presents to ER via Ambulatory with complaints of larry Weakness. 12:28 The patient presents to the emergency department with weakness of the. larry Historical: - Allergies: 10:24 Clarithromycin; cm10 10:24 Levofloxacin; cm10 - PMHx: 10:24 Anemia; Bladder Tumor - Cancer; GERD; High Cholesterol; Hypertension; Hypothyroidism; cm10 Hyponatremia; - PSHx: 10:24 cataract repair; back; TURP; cm10 - Immunization history:: Adult Immunizations up to date. - Infectious Disease History:: Denies. - Social history:: Smoking status: Patient denies any tobacco usage or history of. ROS: 12:29 Constitutional: Negative for fever, chills, and weight loss, Eyes: Negative for injury, larry pain, redness, and discharge, ENT: Negative for injury, pain, and discharge, Neck: Negative for injury, pain, and swelling, Cardiovascular: Negative for chest pain, palpitations, and edema, Respiratory: Negative for shortness of breath, cough, wheezing, and pleuritic chest pain, Abdomen/GI: Negative for abdominal pain, nausea, vomiting, diarrhea, and constipation, Back: Negative for injury and pain, : Negative for injury, bleeding, discharge, and swelling, MS/Extremity: Negative for injury and deformity, Skin: Negative for injury, rash, and discoloration, Psych: Negative for depression, anxiety, suicide ideation, homicidal ideation, and hallucinations, Allergy/Immunology: Negative for hives, rash, and allergies, Endocrine: Negative for neck swelling, polydipsia, polyuria, polyphagia, and marked weight changes, Hematologic/Lymphatic: Negative for swollen nodes, abnormal bleeding, and unusual bruising, 12:29 Neuro: Positive for weakness, Exam: 12:29 Constitutional: This is a well developed, well nourished patient who is awake, alert, larry and in no acute distress. Head/Face: Normocephalic, atraumatic. Eyes: Pupils equal round and reactive to light, extra-ocular motions intact. Lids and lashes normal. Conjunctiva and sclera are non-icteric and not injected. Cornea within normal limits. Periorbital areas with no swelling, redness, or edema. ENT: Nares patent. No nasal discharge, no septal abnormalities noted. Tympanic membranes are normal and external auditory canals are clear. Oropharynx with no redness, swelling, or masses, exudates, or evidence of obstruction, uvula midline. Mucous membranes moist. Neck: Trachea midline, no thyromegaly or masses palpated, and no cervical lymphadenopathy. Supple, full range of motion without nuchal rigidity, or vertebral point tenderness. No Meningismus. Chest/axilla: Normal chest wall appearance and motion. Nontender with no deformity. No lesions are appreciated. Respiratory: Lungs have equal breath sounds bilaterally, clear to auscultation and percussion. No rales, rhonchi or wheezes noted. No increased work of breathing, no retractions or nasal flaring. Abdomen/GI: Soft, non-tender, with normal bowel sounds. No distension or tympany. No guarding or rebound. No evidence of tenderness throughout. Back: No spinal tenderness. No costovertebral tenderness. Full range of motion. Male : Normal genitalia with no discharge or lesions. Skin: Warm, dry with normal turgor. Normal color with no rashes, no lesions, and no evidence of cellulitis. MS/ Extremity: Pulses equal, no cyanosis. Neurovascular intact. Full, normal range of motion., bilateral aka Psych: Awake, alert, with orientation to person, place and time. Behavior, mood, and affect are within normal limits. 12:29 Cardiovascular: Rate: bradycardic, actual rate is 50 bpm, Rhythm: regular, Pulses: Pulses are 4+ in bilateral radial, brachial, femoral, popliteal, posterior tibial and and dorsalis pedis arteries.. Heart sounds: normal, Edema: is not appreciated, JVD: is not appreciated, 12:29 ECG was reviewed by the Attending Physician. Vital Signs: 10:23 BP 143 / 72; Pulse 58; Resp 15; Temp 97.7; Pulse Ox 98% on R/A; Weight 73.48 kg; Height cm10 5 ft. 8 in. ; Pain 0/10; 11:00 BP 123 / 68 LA Supine (auto/reg); Pulse 50; Resp 16; Pulse Ox 97% on R/A; Pain 0/10; bm7 11:00 BP 149 / 70; Pulse 54; Resp 18; Pulse Ox 98% on R/A; Pain 2/10; bm7 12:05 BP 138 / 71; Pulse 48; Resp 16; Temp 98.7; Pulse Ox 100% on R/A; Pain 0/10; bm7 12:20 BP 158 / 42 RA Supine (/reg); Pulse 50; Resp 18; Pulse Ox 98% on R/A; Pain 0/10; bm7 12:20 BP 152 / 76 LA Sitting (auto/reg); Pulse 53; Resp 16; Pulse Ox 100% on R/A; Pain 0/10; bm7 12:20 BP 148 / 73 LA Standing (auto/reg); Pulse 58; Resp 18; Pulse Ox 100% on R/A; Pain 0/10; bm7 13:00 BP 147 / 80; Pulse 51; Resp 16; Pulse Ox 98% on R/A; jb4 14:00 BP 140 / 74; Pulse 49; Resp 16; Pulse Ox 93% ; jb4 10:23 Body Mass Index 24.63 (73.48 kg, 172.72 cm) cm10 10:23 Pain Scale: Adult cm10 11:00 Pain Scale: Adult bm7 11:00 Pain Scale: Adult bm7 12:05 Pain Scale: Adult bm7 12:20 Pain Scale: Adult bm7 12:20 Pain Scale: Adult bm7 12:20 Pain Scale: Adult bm7 NIH Stroke Scale Scores: 11:48 NIHSS Score: 0 bm7 MDM: 10:00 Medical Screening Exam initiated larry 12:34 Differential Diagnosis altered mental status, sepsis, flu. Differential Diagnosis: larry aortic aneurysm, cardiac arrhythmia, cerebrovascular accident, emotional response, GI bleed, idiopathic syncope, seizure, vasovagal episode. Data reviewed: vital signs, nurses notes, EMS record, lab test result(s), EKG, radiologic studies, CT scan, plain films. Consideration of Admission/Observation Patient was admitted/placed on observation. Escalation of care including admission/observation considered. I considered the following discharge prescriptions or medication management in the emergency department Medications were administered in the Emergency Department. See MAR. Independent interpretation of the following test(s) in the Emergency Department EKG: See my EKG interpretation above. Test considered but Not performed: CT: no ct abd/pel. Historians other than the Patient: Spouse/Significant Other: well informed. Care significantly affected by the following chronic conditions: Hypertension, Cancer, high cholesterol, gerd, hypothyroid. Counseling: I had a detailed discussion with the patient and/or guardian regarding the historical points, exam findings, and any diagnostic results supporting the discharge/admit diagnosis, lab results, radiology results, the need for further work-up and treatment in the hospital. 12/19 10:03 Order name: Basic Metabolic Panel; Complete Time: 12:24 [facility] 12/19 10:03 Order name: CBC with Diff; Complete Time: 12:24 [facility] 12/19 10:03 Order name: LFT's; Complete Time: 12:24 [facility] 12/19 10:03 Order name: Magnesium; Complete Time: 12:24 [facility] 12/19 10:03 Order name: NT PRO-BNP; Complete Time: 12:24 [facility] 12/19 10:03 Order name: PT-INR; Complete Time: 12:24 [facility] 12/19 10:03 Order name: Troponin HS; Complete Time: 12:24 [facility] 12/19 10:03 Order name: Urinalysis w/ reflexes; Complete Time: 11:56 [facility] 12/19 10:03 Order name: Lipase; Complete Time: 12:24 [facility] 12/19 10:03 Order name: Flu [facility] 12/19 10:03 Order name: SARS RAPID; Complete Time: 12:24 [facility] 12/19 10:03 Order name: Blood Culture Adult (2) [facility] 12/19 14:50 Order name: Urinalysis w/ reflexes EDFL 12/19 14:50 Order name: Basic Metabolic Panel EDMS 12/19 14:50 Order name: Basic Metabolic Panel EDMS 12/19 14:50 Order name: CBC with Automated Diff EDMS 12/19 14:50 Order name: CBC with Automated Diff EDMS 12/19 14:50 Order name: Lipid Profile EDMS 12/19 14:50 Order name: Lipid Profile EDMS 12/19 14:50 Order name: Magnesium EDMS 12/19 14:50 Order name: Magnesium EDMS 12/19 14:50 Order name: Thyroid Stimulating Hormone EDMS 12/19 14:50 Order name: Thyroid Stimulating Hormone EDMS 12/19 14:56 Order name: NT PRO-BNP EDMS 12/19 14:56 Order name: NT PRO-BNP EDFL 12/19 14:56 Order name: Troponin High Sensitivity EDFL 12/19 14:56 Order name: Troponin High Sensitivity EDFL 12/20 06:49 Order name: T4 Free EDFL 12/19 10:03 Order name: XRAY Chest (1 view) [facility] 12/19 14:45 Order name: Echo Color Flow Mapping EDFL 12/19 14:46 Order name: Carotid Artery Bilateral EDFL 12/19 14:56 Order name: ERT ORTHOSTATIC V/S EDFL 12/19 14:56 Order name: ERT ORTHOSTATIC V/S EDFL 12/19 10:03 Order name: EKG; Complete Time: 10:03 [facility] 12/19 14:50 Order name: EKG Electrocardiogram EDFL 12/19 14:50 Order name: EKG Electrocardiogram EDFL 12/19 10:03 Order name: Cardiac monitoring; Complete Time: 11:47 [facility] 12/19 10:03 Order name: EKG - Nurse/Tech; Complete Time: 11:47 [facility] 12/19 10:03 Order name: IV Saline Lock; Complete Time: 11:47 [facility] 12/19 10:03 Order name: Labs collected and sent; Complete Time: 11:47 [facility] 12/19 10:03 Order name: O2 Per Protocol; Complete Time: 11:47 [facility] 12/19 10:03 Order name: O2 Sat Monitoring; Complete Time: 11:47 [facility] EC:29 Rate is 55 beats/min. Rhythm is regular. QRS Merna is Normal. WA interval is normal. QRS larry interval is normal. QT interval is normal. No Q waves. T waves are Normal. No ST changes noted. Clinical impression: Sinus bradycardia and No evidence of ischemia. Interpreted by me. Reviewed by me. Administered Medications: 11:47 Drug: NS 0.9% IV 1000 ml IV at 1000 ml once; to be given as a bolus over 60 minutes bm7 Route: IV; Rate: 1000 ml; Site: right antecubital; 13:06 Follow up: IV Status: Completed infusion; IV Intake: 1000ml bm7 Disposition Summary: 12/19/24 12:39 Hospitalization Ordered Notes: Hospitalization Status: Observation larry Provider: Anabela Bazzi cha Condition: Stable larry Problem: new larry Symptoms: have improved larry Bed/Room Type: Standard larry Location: [facility] ER HOLD(12/19/24 15:14) kb3 Room Assignment: ERHOLD-(12/19/24 15:14) kb3 Diagnosis - Weakness larry - Bradycardia, unspecified larry - Syncope Near larry Forms: - Medication Reconciliation Form larry - SBAR form larry - Leadership Thank You Letter larry NIH Stroke Scale - NIH Stroke Score Date: 12/19/2024 Time: 11:48 Total Score = 0 10. Dysarthria (speech clarity - read or repeat words) - 0(Normal) 11. Extinction and Inattention (visual/tactile/auditory/spatial/personal) - 0(No abnormality) 1a. Level of Consciousness (LOC) - 0(Alert) 1b. Level of Consciousness (LOC) (Month \T\ Age) - 0(Both) 1c. LOC Commands (Open \T\ Closes Eyes/[employer]mercial Census Taker) - 0(Both) 2. Best Gaze (Lateral Gaze Paresis) - 0(Normal) 3. Visual Field Loss - 0(No visual loss) 4. Facial Palsy - 0(Normal) 5a. Left Arm: Motor (10-second hold) - 0(No drift) 5b. Right Arm: Motor (10-second hold) - 0(No drift) 6a. Left Leg: Motor (5-second hold - always test supine) - 0(No drift) 6b. Right Leg: Motor (5-second hold - always test supine) - 0(No drift) 7. Limb Ataxia (finger/nose \T\ heel/mccullough - test with eyes open) - 0(Absent) 8. Sensory Loss (pinprick arms/legs/face) - 0(Normal) 9. Best Language: Aphasia (description/naming/reading) - 0(No aphasia) Initials: bm7 Signatures: Dispatcher [employer] EDWally Hernandez MD MD cha McCarthy, Brittany RN RN bm7 Palmira Tellez, RN RN kb3 Anais Muse RN RN cm10 Corrections: (The following items were deleted from the chart) 15:14 12:39 Telemetry/MedSurg (Inpatient) [facility] 15:14 12:39 [facility]
--- NOTE | 2024-12-19 12:50 | RAD REPORT ---
EXAMINATION: ONE VIEW CHEST XR CLINICAL INDICATION: Male, 84 years old.,COUGH TECHNIQUE: Frontal chest projection is submitted. Examination is limited by patient positioning and t echnique. COMPARISON: 08/08/2013 FINDINGS: The lungs are grossly clear although suboptimal inspiratory effort somewhat limits evaluation. No pn eumothorax or sizable effusion. The heart is normal in size. Mediastinal contours are unremarkable. IMPRESSION: No acute intrathoracic abnormalities.
[2024-12-19] MEDS ORDERED: ONDANSETRON 4 MG/2 ML VIAL IV PRN (14:47)
[2024-12-19] MEDS ORDERED: ACETAMINOPHEN 500 MG TAB PO PRN (14:47)
--- NOTE | 2024-12-19 14:52 | P.HP ---
Certification for Inpatient Patient admitted to: Observation Practitioner: I am a practitioner with admitting privileges, knowledge of patient current condition, hospital course, and medical plan of care. Services: Services provided to patient in accordance with Admission requirements found in Title 42 Section 412.3 of the Code of Federal Regulations Patient History Date of Service: 12/19/24 Reason for admission: Presyncopal episode History of Present Illness: 84-year-old male with a past medical history of 4 Anemia; Bladder Tumor - Cancer; GERD; High Cholesterol; Hypertension; Hypothyroidism; Hyponatremia presents to the emergency room with generalized weakness. He reports symptoms started yesterday, he reports weakness with ambulation, he denies fever, recent infection, chest pain, shortness of breath, nausea, dizziness. He denies history of NE, CVA. He reports he sees Dr. Banks. Plan to admit for weakness, presyncopal episode. ER evaluation BP 143 / 72; Pulse 58; Resp 15; Temp 97.7; Pulse Ox 98% on R/A; Weight 73.48 kg; Height cm 5 ft. 8 in. ; Pain 0/10, EKG sinus bradycardia, actual rate is 52 bpm, left ventricular hypertrophy no STEMI, chest x-ray No acute intrathoracic abnormalities. Carotid IMPRESSION: No hemodynamically significant stenosis (greater than 50%) within the extracranial internal carotid arteries, echo ordered for the a.m. CBC bowels microcytic anemia 11.5 33.1 mild hyponatremia 135 elevated BNP 730 UA unremarkable COVID-negative Allergies clarithromycin Adverse Reaction (Verified 12/10/22 11:10) Diarrhea, Bad Taste, Dizziness levofloxacin [From Levaquin] Adverse Reaction (Verified 12/10/22 11:10) Leg cramping Home Medications: Amlodipine Besylate [Norvasc] 2.5 mg PO DAILYPRN PRN 12/10/22 Bifidobacterium Infantis [Align] 1 cap PO DAILY 12/10/22 Cyanocobalamin [Vitamin B-12] 1,000 mcg PO NOON 12/10/22 Ergocalciferol (Vitamin D2) [Vitamin D2] 1,000 unit PO DAILY 12/10/22 Famotidine [Pepcid] 40 mg PO DAILY 12/10/22 Fexofenadine HCl [Odette Allergy] 180 mg PO BEDTIME 12/10/22 Folic Acid 1 mg PO NOON 12/10/22 Levothyroxine Sodium [Euthyrox] 75 mcg PO DAILY 12/10/22 Lisinopril [Zestril] 5 mg PO DAILY 12/10/22 Magnesium Glycinate 4 cap PO DAILY 12/10/22 Montelukast [Singulair] 10 mg PO BEDTIME 12/10/22 Olopatadine HCl [Patanase] 2 spray NS BID 12/10/22 Rosuvastatin Calcium 20 mg PO DAILY 12/10/22 Sodium Chloride 1 gm PO DAILY 12/10/22 Tamsulosin [Flomax] 0.4 mg PO BEDTIME 12/10/22 Triamcinolone Acetonide [Nasacort] 2 sprays NS DAILY 12/10/22 Ubidecarenone [Coenzyme Q10] 1 cap PO BID 12/10/22 Vit C/E/Zn/Coppr/Lutein/Zeaxan [Preservision Areds 2 Softgel] 2 each PO DAILY 12/10/22 Zinc Gluconate [Zinc] 50 mg PO DAILY 12/10/22 - Past Medical/Surgical History -: Anemia -: Bladder cancer -: GERD -: Hypertension -: Hyperlipidemia -: Hypothyroidism -: Hyponatremia -: Cataract repair -: Back surgery -: TURP - Social History Smoking Status: Never smoker Alcohol use: Yes CD- Drugs: No Caffeine use: Yes Place of Residence: Home Review of Systems 10-point ROS is otherwise unremarkable Physical Examination - Physical Exam General: Alert, In no apparent distress, Oriented x3, Other (Generalized weakness) HEENT: Atraumatic, Normocephalic Neck: 2+ carotid pulse no bruit, JVD not distended Respiratory: Clear to auscultation bilaterally, Normal air movement Cardiovascular: Normal pulses, Normal S1 S2, Other (Sinus bradycardia) Gastrointestinal: Normal bowel sounds, Soft and benign, Non-distended Musculoskeletal: No clubbing, No swelling, Other (Generalized weakness) Integumentary: No breakdown, No significant lesion Neurological: Normal gait, Normal speech, Normal strength at 5/5 x4 extr - Studies Laboratory Data (last 24 hrs) 12/19/24 12/19/24 12/19/24 11:35 11:35 11:35 WBC 4.20 L Hgb 11.5 L Hct 33.1 L Plt Count 171 PT 10.7 INR 1.02 Sodium 135 L Potassium 4.0 BUN 13 Creatinine 0.88 Glucose 119 H Magnesium 2.1 Total Bilirubin 0.7 AST 15 ALT 22 Alkaline Phosphatase 66 Lipase 26 Microbiology Data (last 24 hrs): 12/19/24 11:35 Nasopharnyx Influenza Type A Antigen Screen - Final 12/19/24 11:35 Nasopharnyx Influenza Type B Antigen Screen - Final Assessment and Plan - Problems (Diagnosis) (1) Pre-syncope Current Visit: Yes Status: Acute (2) Generalized weakness Current Visit: Yes Status: Acute (3) Bradycardia Current Visit: Yes Status: Acute - Plan Assessment plan Presyncopal episode Generalized weakness Bradycardia Telemetry, Echo, carotid Dopplers, Orthostatic vitals NIHStroke scale 0 Hypertension Hyperlipidemia GERD Hypothyroidism Microcytic anemia Resume appropriate home medications Full code DVT Diet cardiac Disposition Home independent prior Discharge Plan: Home - Advance Directives Does patient have a Living Will: No Does patient have a Durable POA for Healthcare: Yes - Code Status/Comfort Care Code Status: Full Code Critical Care: No Time Spent Managing Pts Care (In Minutes): 55
--- NOTE | 2024-12-19 16:58 | RAD REPORT ---
EXAM: US Carotid Artery Bilateral CLINICAL INDICATION: syncope TECHNIQUE: Real-time grayscale, color flow, and spectral Doppler sonographic images were obtained of the extracranial carotid system using a linear transducer. Arterial peak systolic velocities are recorded as follows. COMPARISON: No prior exam. FINDINGS: RIGHT: Common carotid artery: 111 cm/s Internal carotid artery: 92 cm/s Right ICA/CCA ratio: 0.83 Plaque : Smooth echogenic mild to moderate calcified plaque External carotid artery: 93 cm/s Vertebral artery: Antegrade LEFT: Common carotid artery: 97 cm/s Internal carotid artery: 112 cm/s Left ICA/CCA ratio: 1.15 Plaque : Small echogenic mild noncalcified plaque External carotid artery: 124 cm/s Vertebral artery: Antegrade IMPRESSION: No hemodynamically significant stenosis (greater than 50%) within the extracranial internal carotid a rteries. The degrees of stenosis, if any, are quantified according to the consensus statement of the Society o f Radiologists in Ultrasound (SRUS). Please refer to Rick E, Mark C, Ramon G et al. Carotid Artery Stenosis: Diez-Scale and Doppler US Diagnosis--Society of Radiologists in Ultrasound Consensus Conference. Radiology. 2003;229(2):340-6. doi:10.1148/[id number]
[2024-12-19 17:47] LABS: Specific Gravity 1.005 (1.005-1.030); Urine Bilirubin NEGATIVE (Negative); Urine Blood Negative (Negative); Urine Clarity Clear (Clear); Urine Color Colorless (Yellow); Urine Glucose NEGATIVE (Negative); Urine Ketones NEGATIVE (Negative); Urine Microscopic Reflex YN NO UMIC; Urine Nitrite NEGATIVE (Negative); Urine Protein NEGATIVE (Negative); Urine Urobilinogen Normal (Normal); Urine pH 6.5 (5.0-7.0)
[2024-12-19 17:50] VITALS: BMI 24.7
[2024-12-19] MEDS: FLU (Fluarix Triv) TS24-25(6MOS UP)/PF 45 MCG/0.5 ML Syringe IM ONE (18:00)
[2024-12-19] MEDS: NA CHLORIDE 0.9% 1,000 ML IV SCH (18:08)
[2024-12-20 04:07] VITALS: TEMP 97.5
[2024-12-20 06:44] LABS: Absolute Eosinophils 0.1 K/uL (0-0.5); Absolute Lymphocytes (CBC) 1.1 K/uL (0.7-4.9); Absolute Monocytes 0.5 K/uL (0.1-1.3); Absolute Neutrophil 2.4 K/uL (1.8-8.0); Basophils % 1.1 % (0-1.3); Eosinophils % 3.3 % (0-4.4); Hematocrit 32.9 % (39.6-49.0); Hemoglobin 11.3 g/dL (13.6-17.9); Lymphocytes % 25.8 % (15.3-44.8); MCH 31.1 pg (27.0-35.0); MCHC 34.3 g/dL (32.0-36.0); MCV 90.7 fL (80-100); MPV 8.5 fL (7.6-11.3); Monocytes % 11.8 % (3.3-12.3); Nucleated Red Blood Cells % 0.1 % (0-0); Platelets 188 thou/uL (152-406); RBC Red Blood Cell Count 3.62 M/uL (4.33-5.43); Red Cell Distribution Width 14.1 % (12.1-15.2)
[2024-12-20 06:49] LABS: Anion Gap 9.1 mEq/L (5.0-15.0); Magnesium 2.2 mg/dL (1.6-2.4); Potassium 4.1 mEq/L (3.5-5.1); Thyroid Stimulating Hormone 1.08 uIU/mL (0.358-3.740); Troponin High Sensitivity 5.4 pg/mL (<58.9)
--- NOTE | 2024-12-20 10:09 | P.DS ---
Admission Date: 12/19/24 Discharge Date: 12/20/24 Disposition: ROUTINE DISCHARGE Discharge Condition: GOOD Reason for Admission: Presyncopal episode Brief History of Present Illness: 84-year-old male with a past medical history of 4 Anemia; Bladder Tumor - Cancer; GERD; High Cholesterol; Hypertension; Hypothyroidism; Hyponatremia presents to the emergency room with generalized weakness. He reports symptoms started yesterday, he reports weakness with ambulation, he denies fever, recent infection, chest pain, shortness of breath, nausea, dizziness. He denies history of MO, CVA. He reports he sees Dr. Banks. Plan to admit for weakness, presyncopal episode. ER evaluation BP 143 / 72; Pulse 58; Resp 15; Temp 97.7; Pulse Ox 98% on R/A; Weight 73.48 kg; Height cm 5 ft. 8 in. ; Pain 0/10, EKG sinus bradycardia, actual rate is 52 bpm, left ventricular hypertrophy no STEMI, chest x-ray No acute intrathoracic abnormalities. Carotid IMPRESSION: No hemodynamically significant stenosis (greater than 50%) within the extracranial internal carotid arteries, echo ordered for the a.m. CBC bowels microcytic anemia 11.5 33.1 mild hyponatremia 135 elevated BNP 730 UA unremarkable COVID-negative - Physical Exam General: Alert, In no apparent distress, Oriented x3, Other (Generalized weakness) HEENT: Atraumatic, Normocephalic Neck: 2+ carotid pulse no bruit, JVD not distended Respiratory: Clear to auscultation bilaterally, Normal air movement Cardiovascular: Normal pulses, Normal S1 S2, Other (Sinus bradycardia) Gastrointestinal: Normal bowel sounds, Soft and benign, Non-distended Musculoskeletal: No clubbing, No swelling, Other (Generalized weakness) Integumentary: No breakdown, No significant lesion Neurological: Normal gait, Normal speech, Normal strength at 5/5 x4 extr Hospital Course: 84-year-old male with a past medical history of 4 Anemia; Bladder Tumor - Cancer; GERD; High Cholesterol; Hypertension; Hypothyroidism; Hyponatremia presents to the emergency room with generalized weakness. He reports symptoms started yesterday, he reports weakness with ambulation, he denies fever, recent infection, chest pain, shortness of breath, nausea, dizziness. He denies history of MO, CVA. He reports he sees Dr. Castano. Plan to admit for weakness, presyncopal episode. Symptoms improved, tolerated diet, stable to discharge home, follow-up with cardiology Assessment Generalized weakness, presyncopal episode, Bradycardia, follow-up with cardiology after discharge Hypertension, hyperlipidemia, GERD, hypothyroidism resume appropriate home medi cation Carotid Doppler less than 50% atherosclerosis Echo ordered pending report Continue home medicines as previously prescribed GOAL: Clear understanding of disease process INSTRUCTIONS: Physician Discharge Instructions: -Follow-up with PCP in 1 to 2 weeks -Please call Dr. Bazzi at [phone] if any questions regarding hospital stay -Please call nursing station at [phone] if any nursing or medication questions -Return to the emergency room if symptoms worsen Diet: ADA, low sodium Activity: Fall precautions Vital Signs/Physical Exam: Temp Pulse Resp BP Pulse Ox 97.5 F 52 19 126/73 96 12/20/24 04:00 12/20/24 04:00 12/20/24 04:00 12/20/24 04:00 12/20/24 04:00 Laboratory Data at Discharge: WBC 4.20 thou/uL (4.3-10.9) L 12/20/24 06:00 Hgb 11.3 g/dL (13.6-17.9) L 12/20/24 06:00 Hct 32.9 % (39.6-49.0) L 12/20/24 06:00 Plt Count 188 thou/uL (152-406) 12/20/24 06:00 PT 10.7 SECONDS (9.4-12.5) 12/19/24 11:35 INR 1.02 12/19/24 11:35 Sodium 139 mEq/L (136-145) 12/20/24 06:00 Potassium 4.1 mEq/L (3.5-5.1) 12/20/24 06:00 BUN 12 mg/dL (7-18) 12/20/24 06:00 Creatinine 0.76 mg/dL (0.70-1.30) 12/20/24 06:00 Glucose 84 mg/dL (74-106) 12/20/24 06:00 Magnesium 2.2 mg/dL (1.6-2.4) 12/20/24 06:00 Total Bilirubin 0.7 mg/dL (0.2-1.0) 12/19/24 11:35 AST 15 U/L (15-37) 12/19/24 11:35 ALT 22 U/L (16-61) 12/19/24 11:35 Alkaline Phosphatase 66 U/L (45-117) 12/19/24 11:35 Triglycerides 100 mg/dL (<150) 12/20/24 06:00 Cholesterol 151 mg/dL (<200) 12/20/24 06:00 HDL Cholesterol 62 mg/dL (40-60) H 12/20/24 06:00 Cholesterol/HDL Ratio 2.44 12/20/24 06:00 Lipase 26 U/L (13-75) 12/19/24 11:35 Home Medications: Amlodipine Besylate [Norvasc] 2.5 mg PO DAILYPRN PRN 12/10/22 Bifidobacterium Infantis [Align] 1 cap PO DAILY 12/10/22 Cyanocobalamin [Vitamin B-12*] 1,000 mcg PO NOON 12/10/22 Ergocalciferol (Vitamin D2) [Vitamin D2] 1,000 unit PO DAILY 12/10/22 Famotidine [Pepcid] 40 mg PO DAILY 12/10/22 Fexofenadine HCl [Odette Allergy] 180 mg PO BEDTIME 12/10/22 Folic Acid 1 mg PO NOON 12/10/22 Levothyroxine Sodium [Euthyrox] 75 mcg PO DAILY 12/10/22 Lisinopril [Zestril] 5 mg PO DAILY 12/10/22 Magnesium Glycinate 4 cap PO DAILY 12/10/22 Montelukast [Singulair*] 10 mg PO BEDTIME 12/10/22 Olopatadine HCl [Patanase] 2 spray NS BID 12/10/22 Rosuvastatin Calcium 20 mg PO DAILY 12/10/22 Sodium Chloride 1 gm PO DAILY 12/10/22 Tamsulosin [Flomax*] 0.4 mg PO BEDTIME 12/10/22 Triamcinolone Acetonide [Nasacort] 2 sprays NS DAILY 12/10/22 Ubidecarenone [Coenzyme Q10] 1 cap PO BID 12/10/22 Vit C/E/Zn/Coppr/Lutein/Zeaxan [Preservision Areds 2 Softgel] 2 each PO DAILY 12/10/22 Zinc Gluconate [Zinc] 50 mg PO DAILY 12/10/22 Physician Discharge Instructions: OK TO DC IV AND DC HOME FOLLOW-UP WITH PRIMARY CARE PROVIDER IN 1-2 WEEKS FOLLOW-UP WITH CARDIOLOGY IN 1-2 WEEKS; patient can meat pickler event monitor from Cardiology office RETURN TO THE ER IF symptoms worsen CALL DR. BAZZI AT [phone] IF ANY QUESTIONS REGARDING HOSPITAL STAY. PLEASE CALL THE FLOOR AT [phone] IF ANY MEDICATION OR NURSING QUESTIONS. Diet: AHA Activity: Fall precautions Followup: Katie Perez MD [Primary Care Provider] - PAPITO CASTANO [OUTSIDE PHYSICIAN] - Time spent managing pt's care (in minutes): 45
--- NOTE | 2024-12-20 11:29 | EKG ---
Test Date: 2024-12-19 Test Time: 11:09:54 Child Support Officer: SHARRI MEASUREMENT RESULTS: Intervals: Rate: 55 MO: 206 QRSD: 92 QT: 418 QTc: 399 Dickinson: P: 26 MO: 206 QRS: 50 T: 54 INTERPRETIVE STATEMENTS: Sinus bradycardia Otherwise normal ECG Compared to ECG 12/31/2020 20:32:02 No significant changes Electronically Signed On 12-20-24 11:26:30 STAFF NURSE by Espinoza Mary
[2024-12-20 11:59] VITALS: BP 145/69
[2024-12-20 12:06] VITALS: O2SAT 93
== END 2024-12-20 11:20 | disposition home or self-care (01) ==
LOC: ER 09:56 → ERHOLD 14:44 → INTOOBSV 14:44
PROVIDERS: ADMIT Hospitalist; ATTEND Hospitalist
DX: R55 Syncope and collapse (principal); R00.1 Bradycardia, unspecified; R53.1 Weakness; D64.9 Anemia, unspecified; K21.9 Gastro-esophageal reflux disease without esophagitis; E78.00 Pure hypercholesterolemia, unspecified; I10 Essential (primary) hypertension; E03.9 Hypothyroidism, unspecified; C67.9 Malignant neoplasm of bladder, unspecified; E87.1 Hypo-osmolality and hyponatremia; Z11.52 Encounter for screening for COVID-19
CPT/HCPCS: 36415; 71045; 80048; 80061; 80076; 81003; 83690; 83735; 83880; 84439; 84443; 84484; 85025; 85610; 87040; 87804; 87811; 93005; 93880; G0378; J7030

== ENCOUNTER 2025-01-11 08:49 | Day surgery (SDC) | payer OTHER ==
[2025-01-11] MEDS: Ringers Lactate 1,000 ML IV ONE (09:00)
[2025-01-11] MEDS: CEFAZOLIN SODIUM 1 GM/VIAL ONE (10:16)
[2025-01-11] MEDS: BUPIVACAINE 0.25% PF 10 ML VIAL ONE (10:17)
[2025-01-11] MEDS ORDERED: propofoL 200 MG/20 ML VIAL IV ONE (10:19)
[2025-01-11] MEDS ORDERED: KETOROLAC 30 MG/ML INJ ONE (10:19)
[2025-01-11] MEDS ORDERED: LIDOCAINE 1% MPF 5 ML VIAL ONE (10:19)
[2025-01-11] MEDS ORDERED: FENTANYL CITR 100 MCG/2 ML ONE (10:19)
[2025-01-11] MEDS ORDERED: GLYCOPYRROLATE 0.2 MG/ML SYR ONE (10:42)
--- NOTE | 2025-01-11 11:15 | P.BOP ---
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
--- NOTE | 2025-01-11 11:22 | P.OP ---
Preoperative diagnosis: Right middle finger and ring finger trigger digits Postoperative diagnosis: Same Primary procedure: Right middle finger and ring finger A1 idane releases Anesthesia: General Estimated blood loss: 2 cc Specimen: None Findings: See dictation Operative Technique: Reason for Surgery: Noah is an 84 year old male that presented with physical exam findings consistent with right middle and ring finger trigger digits. Patient failed conservative treatment measures including corticosteroid injections. I discussed with the patient at length risks and benefits a ssociated with the procedure. They expressed understanding and elected proceed with operative treatment. Description of Procedure: After informed consent was obtained the patient was identified in the preoperative holding area. The right middle and ring fingers were marked. Patient then brought back to the operating room transferred the operative table in supine fashion and placed under anesthesia. The right upper extremity was exsanguinated and the tourniquet was inflated to 250 mmHg. Approximately a 2 cm longitudinal incision over the middle finger A1 daine. Dissection was then taken down to the A1 diane using Ragnell retractors. The tendon sheath was identified. It was split in line with the incision. There was significant tenosynovial fluid that was expressed after opening the tendon sheath. The tendon was then brought out through the incision using a Ragnell retractor. There was full excursion of the tendon without triggering noted. The wound was then irrigated thoroughly with normal saline and skin was approximated using a 5-0 Prolene. Next attention was taken to the ring finger. Approximately a 2 cm longitudinal incision over the ring finger A1 diane. Diss ection was then taken down to the A1 diane using Ragnell retractors. The tendon sheath was identified. It was split in line with the incision. There was significant tenosynovial fluid that was expressed after opening the tendon sheath. The tendon was then brought out through the incision using a Ragnell retractor. There was full excursion of the tendon without triggering noted. The wound was then irrigated thoroughly with normal saline and skin was approximated using a 5-0 Prolene. Sterile dressings were applied and patient was awakened and transferred to PACU in stable condition. Postoperative plan: The patient will follow-up in 1 to 2 weeks for wound check and suture removal. They may begin to work on range of motion exercises at this time. Complications: None Implants: None Fluids & blood products: Per anesthesia record Transferred to: Recovery Room Condition: Good
[2025-01-11 13:02] VITALS: BP 144/69; O2SAT 99
[2025-01-11 13:03] VITALS: TEMP 97
== END 2025-01-11 12:52 | disposition home or self-care (01) ==
LOC: OR 08:49
PROVIDERS: ATTEND Orthopaedic Surgery Sports Medicine
PROC: 0LN70ZZ Release Right Hand Tendon, Open Approach (ICD-10-PCS; principal; 2025-01-11 10:15)
DX: M65.341 Trigger finger, right ring finger (principal); M65.331 Trigger finger, right middle finger
CPT/HCPCS: 36415; 85730; 26055 ×2; J2704; J2003; J3010; J7120; J0690

== ENCOUNTER 2025-02-11 21:20 | Emergency (ER) | payer OTHER ==
--- NOTE | 2025-02-11 21:56 | EDPHYS ---
Physician Documentation [facility] Name: Noah Whyte Age: 84 yrs Sex: Male : 1940 Arrival Date: 02/11/2025 Time: 21:20 Bed IW4 Private MD: ED Physician Amol Varghese HPI: 02/11 21:50 This 84 yrs old Male presents to ER via Ambulatory with complaints of Swallowed a cp cashew and it disappeared. 21:50 Patient is a 84-year-old male who presents to the emergency department with concern for cp possibly aspirating a cashew nut. Patient reports he was sitting on his couch with a cashew nut in his mouth when he went to stand, he was unable to find the nut. Patient is unsure whether he swallowed the nut or if he aspirated into his lungs. Patient is asymptomatic at this point and came to the emergency room to be checked out. Historical: - Allergies: 21:45 Clarithromycin; jb4 21:45 Levofloxacin; jb4 - PMHx: 21:45 Anemia; Bladder Tumor - Cancer; GERD; High Cholesterol; Hypertension; hyponatremia; jb4 Hypothyroidism; - PSHx: 21:45 back; cataract repair; TURP; jb4 - Immunization history:: Adult Immunizations up to date. - Infectious Disease History:: Denies. - Social history:: Smoking status: Patient denies any tobacco usage or history of. ROS: 21:52 Constitutional: history per hpi cp 21:52 Cardiovascular: Negative for chest pain, 21:52 Respiratory: Negative for cough, shortness of breath, wheezing, 21:52 Abdomen/GI: Negative for abdominal pain, vomiting, diarrhea, constipation, 21:52 All other systems are negative, Exam: 21:52 Head/Face: Normocephalic, atraumatic. cp 21:52 Constitutional: The patient appears in no acute distress, alert, awake, comfortable, non-diaphoretic, non-toxic, well developed, well nourished, 21:52 Eyes: Periorbital structures: appear normal, Conjunctiva: normal, no exudate, no injection, Lids and lashes: appear normal, bilaterally, 21:52 ENT: External ear(s): are unremarkable, Nose: is normal, Mouth: Lips: moist, Oral mucosa: moist, Posterior pharynx: Airway: no evidence of obstruction, patent, 21:52 Neck: ROM/movement: is normal, is supple, without pain, no range of motions limitations, 21:52 Chest/axilla: Inspection: normal, Palpation: is normal, no crepitus, no tenderness, 21:52 Cardiovascular: Rate: bradycardic, 21:52 Respiratory: the patient does not display signs of respiratory distress, Respirations: normal, no use of accessory muscles, no retractions, labored breathing, is not present, Breath sounds: are clear throughout, no decreased breath sounds, no stridor, no wheezing, 21:52 Abdomen/GI: Inspection: abdomen appears normal, Palpation: abdomen is soft and non-tender, in all quadrants, Vital Signs: 21:38 BP 162 / 87; Pulse 59; Resp 16; Temp 98(TE); Pulse Ox 96% on R/A; Weight 73.03 kg (R); jb4 Height 5 ft. 8 in. (R); Pain 0/10; 21:38 Body Mass Index 24.48 (73.03 kg, 172.72 cm) jb4 21:38 Pain Scale: Adult jb4 MDM: 21:46 Medical Screening Exam initiated cp 21:54 Differential diagnosis: bronchitis, pneumonia esophageal foreign body, aspirated cp foreign body. Data reviewed: vital signs, nurses notes, and as a result, I will discharge patient. Administered Medications: No medications were administered Disposition: 02/12 20:30 Co-signature as Attending Physician, Amol Varghese MD I agree with the assessment sp4 and plan of care. I reviewed the patient's care provided by the Advanced Practice Provider and agree with the diagnosis and treatment plan. Disposition Summary: 02/11/25 21:56 Discharge Ordered Notes: Location: Home cp Problem: new cp Symptoms: have improved cp Condition: Stable cp Diagnosis - Encounter for screening, unspecified cp Followup: cp - With: Emergency Department - When: As needed - Reason: Worsening of condition Discharge Instructions: - Discharge Summary Sheet cp - Medical Screening Exam cp Forms: - Medication Reconciliation Form cp - Antibiotic Education cp - Prescription Opioid Use cp - Patient Portal Instructions cp - Leadership Thank You Letter cp Signatures: Wally Goel PA PA cp Bryson, James, RN RN jb4 Potepalov, Amol, MD MD sp4
--- NOTE | 2025-02-11 21:56 | ER ---
Nurse's Notes [facility] Name: Noah Whyte Age: 84 yrs Sex: Male : 1940 Arrival Date: 02/11/2025 Time: 21:20 Bed IW4 Private MD: Diagnosis: Encounter for screening, unspecified Presentation: 02/11 21:38 Chief complaint: Patient states: I was sitting on the couch. Put a cashew in my mouth, jb4 when I stood up it was gone. I do not know where it went. Coronavirus screen: At this time, the client does not indicate any symptoms associated with coronavirus-19. Ebola Screen: No symptoms or risks identified at this time. Initial Sepsis Screen: Does the patient meet any 2 criteria? No. Patient's initial sepsis screen is negative. Does the patient have a suspected source of infection? No. Patient's initial sepsis screen is negative. Risk Assessment: Do you want to hurt yourself or someone else? Patient reports no desire to harm self or others. Onset of symptoms was February 11, 2025. Transition of care: patient was not received from another setting of care. 21:38 Method Of Arrival: Ambulatory jb4 21:38 Acuity: JAIMIE 5 jb4 Triage Assessment: 21:45 General: Appears in no apparent distress. comfortable, Behavior is calm, cooperative, jb4 appropriate for age. Pain: Denies pain. Neuro: Level of Consciousness is awake, alert, obeys commands, Oriented to person, place, time, situation. Cardiovascular: Patient's skin is warm and dry. Respiratory: Airway is patent Respiratory effort is even, unlabored, Respiratory pattern is regular, symmetrical. Derm: Skin is intact, Skin is pink, warm \T\ dry. Musculoskeletal: Circulation, motion, and sensation intact. Range of motion: intact in all extremities. Historical: - Allergies: 21:45 Clarithromycin; jb4 21:45 Levofloxacin; jb4 - PMHx: 21:45 Anemia; Bladder Tumor - Cancer; GERD; High Cholesterol; Hypertension; hyponatremia; jb4 Hypothyroidism; - PSHx: 21:45 back; cataract repair; TURP; jb4 - Immunization history:: Adult Immunizations up to date. - Infectious Disease History:: Denies. - Social history:: Smoking status: Patient denies any tobacco usage or history of. Screenin:47 [facility] ED Fall Risk Assessment (Adult) History of falling in the last 3 months, jb4 including since admission No falls in past 3 months (0 pts) Confusion or Disorientation No (0 pts) Intoxicated or Sedated No (0 pts) Impaired Gait No (0 pts) Mobility Assist Device Used No (0 pt) Altered Elimination No (0 pt) Score/Fall Risk Level 0 - 2 = Low Risk Oriented to surroundings, Maintained a safe environment. Abuse screen: Denies threats or abuse. Nutritional screening: No deficits noted. Tuberculosis screening: No symptoms or risk factors identified. Assessment: 21:58 Reassessment: see triage note. jb4 Vital Signs: 21:38 BP 162 / 87; Pulse 59; Resp 16; Temp 98(TE); Pulse Ox 96% on R/A; Weight 73.03 kg (R); jb4 Height 5 ft. 8 in. (R); Pain 0/10; 21:38 Body Mass Index 24.48 (73.03 kg, 172.72 cm) jb4 21:38 Pain Scale: Adult jb4 ED Course: 21:23 Patient arrived in ED. im 21:26 Wally Goel PA is PHCP. cp 21:26 Amol Varghese MD is Attending Physician. cp 21:45 Triage completed. jb4 21:45 Arm band placed on right wrist. jb4 21:47 Patient has correct armband on for positive identification. Provided Education on: plan jb4 of care. 21:47 No provider procedures requiring assistance completed. jb4 21:58 Patient did not have IV access during this emergency room visit. jb4 Administered Medications: No medications were administered Medication: 21:47 VIS not applicable for this client. jb4 Outcome: 21:56 Discharge ordered by . cp 21:58 Discharged to home ambulatory, jb4 21:58 Condition: stable 21:58 Discharge instructions given to patient, Instructed on discharge instructions, follow up and referral plans. Demonstrated understanding of instructions, follow-up care, 21:59 Patient left the ED. jb4 Signatures: Wally Goel PA PA cp Bryson, James, RN RN jb4 Tiarra Meek im
[2025-02-11 22:04] VITALS: BP 162/87; TEMP 98; O2SAT 96
== END 2025-02-11 21:59 | disposition home or self-care (01) ==
LOC: ER 21:20
DX: Z71.1 Person with feared health complaint in whom no diagnosis is made (principal)
CPT/HCPCS: 99282

== ENCOUNTER 2025-09-03 09:51 | Day surgery (SDC) | payer OTHER ==
--- NOTE | 2025-08-20 13:49 | RAD REPORT ---
EXAMINATION: TWO VIEW CHEST XR CLINICAL INDICATION: Male, 84 years old. Hypertension. Pre-op pending TURP TECHNIQUE: 2 view radiographs of the chest were performed. COMPARISON: 12/19/2024 FINDINGS: The lungs are well inflated and clear. No pneumothorax or sizable effusion. The heart is normal in si ze. Mediastinal contours are unremarkable. IMPRESSION: No acute or significant abnormalities.
[2025-08-20 14:11] LABS: Absolute Lymphocytes (CBC) 0.8 K/uL (0.7-4.9); Hematocrit 35.0 % (39.6-49.0); Hemoglobin 11.6 g/dL (13.6-17.9); MCH 29.7 pg (27.0-35.0); MCHC 33.2 g/dL (32.0-36.0); MCV 89.5 fL (80-100); MPV 8.7 fL (7.6-11.3); Nucleated RBC Absolute Count 0.0 (0-0); Nucleated Red Blood Cells % 0.0 % (0-0); RBC Red Blood Cell Count 3.91 M/uL (4.33-5.43); White Blood Count 3.90 thou/uL (4.3-10.9)
[2025-08-20 14:12] LABS: Urine Culture Reflex Order REFLEXED; Urine Microscopic Reflex YN NO UMIC
[2025-08-20 14:18] LABS: PT Prothrombin Time 11.1 SECONDS (10-13.0); Protime INR 0.98
[2025-08-20 14:29] LABS: Anion Gap 8.9 mEq/L (5.0-15.0); BUN Blood Urea Nitrogen 13.0 mg/dL (7-18); Glucose Level 115.0 mg/dL (74-106); Potassium 3.9 mEq/L (3.5-5.1)
[2025-09-03] MEDS: Ringers Lactate 1,000 ML IV ONE (10:15)
[2025-09-03] MEDS ORDERED: LIDOCAINE 1% MPF 5 ML VIAL ONE (10:20)
[2025-09-03] MEDS ORDERED: ROCURONIUM 50 MG/5 ML VIAL IV ONE ×2 (10:21→10:25)
[2025-09-03] MEDS ORDERED: FENTANYL CITR 100 MCG/2 ML ONE ×2 (10:21→11:51)
[2025-09-03] MEDS: CEFAZOLIN SODIUM 2 GM/VIAL ONE (10:56)
[2025-09-03] MEDS ORDERED: EPHEDRINE SULF 50 MG/ML VIAL ONE (11:13)
[2025-09-03] MEDS ORDERED: ONDANSETRON 4 MG/2 ML VIAL ONE (11:40)
[2025-09-03] MEDS ORDERED: CODEINE 30MG/APAP 300MG TAB PO PRN (12:43)
[2025-09-03] MEDS ORDERED: PHENAZOPYRIDINE 100MG TAB PO ONE (13:15)
[2025-09-03] MEDS ORDERED: OXYBUTYNIN ER 5 MG TAB PO ONE (13:17)
[2025-09-03] MEDS: PHENAZOPYRIDINE 100MG TAB PO ONE (13:45)
[2025-09-03] MEDS: OXYBUTYNIN ER 5 MG TAB PO ONE (13:45)
--- NOTE | 2025-09-03 14:08 | P.OP ---
Date of Service: 09/03/25 Preoperative diagnoses: BPH with LUTS Recurrent gross hematuria History of TURP Postoperative diagnoses: BPH with LUTS Recurrent gross hematuria History of TURP Principal procedures: Bipolar transurethral resection of the prostate Indication for procedure: 84-year-old gentleman presented to the urology clinic with recurrent gross h ematuria in the setting of bothersome LUTS. He underwent cystoscopic evaluation in addition to upper tract imaging, and no concerning papillary mucosal lesions, foreign bodies, stones, or filling defects were noted. Only neovascularization at the bladder neck was observed along with regrowth of adenoma that was likely the source of the bleeding given its friable appearance. Procedure note: The patient was consented in the preoperative holding area before being transferred to the operative suite where general anesthesia was induced. He was given ampicillin 2 g and gentamicin 240 mg IV antimicrobial prophylaxis, and pneumoboots were provided for DVT prophylaxis. He was placed in the lithotomy position, padded and secured to the table appropriately. His genitalia was prepped with Hibiclens and he was draped in standard fashion. The case was begun using urethral sounds to dilate the meatus and fossa navicularis from 22 Indian to 30 Indian with ease. I was then able to pass a 26 x 27 Indian bipolar resectoscope sheath via his urethra using a visual obturator and ultimately navigating beyond the prostatic urethra entering the bladder. I decompressed the bladder of fluid and urine and then switched the visual obturator for a thick bipolar resection loop, which I then used to begin resecting the elevated median bar with the ureteral orifices and direct vision, until the median bar at the bladder neck was level with the trigone. I then continued the resection from the bladder neck down to the verumontanum to create a smooth trough before extending into the left lateral lobe and resecting from the bladder neck to the apex of the prostate from posterior to anterior. I similarly resected on the patient's right side posteriorly and extended up the prostate until the anter ior. Ilich evacuation and fulguration was performed at multiple phases throughout the operation. With his bladder completely decompressed, I reassessed the resection and continued resection until no residual intraurethrally intruding adenoma was appreciable. I ensured all prostate chips were removed from his bladder, and with his bladder completely decompressed, I ensured fulguration and complete hemostasis. In the end, there was a beautiful continuous channel evident from the verumontanum all the way into the bladder neck, widely patent. Capsule was visible within the lateral lobes bilaterally, consistent with complete resection. As a result, once all prostate chips were removed and the prostate fossa was completely hemostatic with no fluid in flow, I then retrograde filled his bladder and passed a 24 Indian three-way Kulkarni catheter via his urethra into his bladder with ease, after I removed the resectoscope sheath. I then placed 30 cc of sterile water into the balloon, and the catheter was connected to the floor bag with slow drip CBI initiated using normal saline. The eflux of urine was crystal-clear. The catheter was secured to his upper thigh using a StatLock after he was taken out of the lithotomy position. He was then awakened from general anesthesia before being transferred to a stretcher. He was then transferred to the recovery room in good condition. Complications: None Discharge disposition: Voiding trial on Tuesday. Follow-up in approximately 3 months interval assessment unless he has significantly bothersome LUTS that require sooner visit.
[2025-09-03 14:20] VITALS: BP 120/50; TEMP 97.5; O2SAT 98
== END 2025-09-03 14:05 | disposition home or self-care (01) ==
LOC: OR 09:51
PROVIDERS: ATTEND Urology
PROC: 0VT08ZZ Resection of Prostate, Via Natural or Artificial Opening Endoscopic (ICD-10-PCS; principal; 2025-09-03 11:00)
DX: N40.1 Benign prostatic hyperplasia with lower urinary tract symptoms (principal); R31.0 Gross hematuria
CPT/HCPCS: 93005; 87088; 85025; 87086; 80048; 36415; 85610; 88305; 81003; 71046; 52630; J2704; J2003; J3010 ×2; J2405; J7120

== ENCOUNTER 2025-09-13 17:01 | Emergency (ER) | payer OTHER ==
[2025-09-13 17:46] LABS: Sqamous Epithelial <5 /HPF (None Seen); Urine Crystals Unidentified Few /HPF (None Seen); Urine Culture Reflex Order NOT NEEDED; Urine Microscopic Reflex YN ORDER UMIC; Urine WBC Clump Rare /HPF (None Seen); Urine Yeast (Budding) Trace /HPF (None Seen)
[2025-09-13] MEDS ORDERED: CEFDINIR 300 MG CAP PO ONE ×2 (18:30→19:11)
--- NOTE | 2025-09-13 18:56 | ER ---
Nurse's Notes [facility] Name: Noah Whyte Age: 84 yrs Sex: Male : 1940 Arrival Date: 09/13/2025 Time: 17:01 Bed 17 Private MD: Diagnosis: Retention of urine, unspecified Presentation: 09/13 17:11 Chief complaint: Patient states: BURNING WITH URINATION THAT STARTED YESTERDAY BUT dd2 WORSE TODAY, DIFFICULT TO URINATE WITH LITTLE URINE OUT. PT REPORTS TURP ON 09/03/[address] SUERO. Coronavirus screen: At this time, the client does not indicate any symptoms associated with coronavirus-19. Ebola Screen: No symptoms or risks identified at this time. Risk Assessment: Do you want to hurt yourself or someone else? Patient reports no desire to harm self or others. Onset of symptoms was September 12, 2025. 17:11 Method Of Arrival: Ambulatory dd2 17:11 Acuity: JAIMIE 3 dd2 17:12 Initial Sepsis Screen: Does the patient meet any 2 criteria? No. Patient's initial dd2 sepsis screen is negative. Does the patient have a suspected source of infection? No. Patient's initial sepsis screen is negative. Triage Assessment: 17:12 General: Appears in no apparent distress. uncomfortable, Behavior is calm, cooperative, dd2 appropriate for age. Pain: Complains of pain in low back area. : Reports burning with urination, inability to void, pain in lower back urgency. Historical: - Allergies: 17:12 Clarithromycin; dd2 17:12 Levofloxacin; dd2 - PMHx: 17:12 Anemia; Bladder Tumor - Cancer; GERD; High Cholesterol; Hypertension; hyponatremia; dd2 Hypothyroidism; - PSHx: 17:12 back; cataract repair; TURP; dd2 - Immunization history:: Adult Immunizations up to date. - Infectious Disease History:: Denies. - Social history:: Smoking status: Patient denies any tobacco usage or history of. Screenin:37 [facility] ED Fall Risk Assessment (Adult) History of falling in the last 3 months, ar8 including since admission No falls in past 3 months (0 pts) Confusion or Disorientation No (0 pts) Intoxicated or Sedated No (0 pts) Impaired Gait No (0 pts) Mobility Assist Device Used No (0 pt) Altered Elimination No (0 pt) Score/Fall Risk Level 0 - 2 = Low Risk Oriented to surroundings, Maintained a safe environment. Abuse screen: Denies threats or abuse. Nutritional screening: No deficits noted. Tuberculosis screening: No symptoms or risk factors identified. Assessment: 17:37 General: Appears in no apparent distress. Behavior is calm, cooperative. Pain: Denies ar8 pain. Neuro: Level of Consciousness is awake, alert, obeys commands, Oriented to person, place, time, situation. Cardiovascular: Patient's skin is warm and dry. Respiratory: Airway is patent Respiratory effort is even, unlabored, Respiratory pattern is regular, symmetrical. GI: No signs and/or symptoms were reported involving the gastrointestinal system. : Bladder is distended Reports burning with urination, inability to void, pain with urination. 18:00 Reassessment: Delay in medication administration- pharmacy to bring medication to ED. ar8 19:24 Reassessment: Patient is alert, oriented x 3, equal unlabored respirations, skin tb4 warm/dry/pink. Patient denies pain at this time. Patient states feeling better. Patient states symptoms have improved. Vital Signs: 17:12 BP 136 / 75; Pulse 57; Resp 16; Temp 97.6; Pulse Ox 100% ; Weight 71.67 kg; Pain 4/10; dd2 17:40 BP 143 / 75; Pulse 55; Resp 16; Pulse Ox 100% on R/A; ar8 18:38 BP 143 / 78; Pulse 53; Resp 16; Pulse Ox 100% on R/A; Pain 0/10; ar8 19:24 BP 133 / 87; Pulse 74; Resp 19; Pulse Ox 100% on R/A; Pain 0/10; tb4 17:12 Pain Scale: Adult dd2 18:38 Pain Scale: Adult ar8 19:24 Pain Scale: Adult tb4 ED Course: 17:05 Patient arrived in ED. gm2 17:06 Wally Goel PA-C is PHCP. cp 17:06 Zaire Alvarez MD is Attending Physician. cp 17:12 Triage completed. dd2 17:12 Arm band placed on right wrist. dd2 17:28 Doug Rivas RN is Primary Nurse. ar8 17:35 No provider procedures requiring assistance completed. Urine collected: clean catch ar8 specimen, Bladder scan completed. 626 ml. 17:37 Bed in low position. Call light in reach. Side rails up X2. Provided Education on: plan ar8 of care. Pulse ox on. NIBP on. 17:37 UA Rfx Quan Cult if indicated Sent. ar8 18:17 Kulkarni cath inserted, using sterile technique, 16 Fr., by mo, balloon inflated, to ar8 gravity drainage, Patient tolerated well. 18:55 Nazario Suero MD is Referral Physician. cp 19:10 Report given to KORI Gonzalez. ar8 19:25 Patient did not have IV access during this emergency room visit. tb4 Administered Medications: 18:56 Not Given (Physician Discretion): [id number] mg PO once cp 19:24 Drug: Cefdinir PO 300 mg PO once Route: PO; tb4 19:28 Follow up: Response: No adverse reaction tb4 Medication: 17:37 VIS not applicable for this client. ar8 Outcome: 18:55 Discharge ordered by MD. cp 19:24 Discharged to home ambulatory, with family, tb4 19:24 Condition: stable 19:24 Discharge instructions given to patient, significant other, Instructed on discharge instructions, follow up and referral plans. Demonstrated understanding of instructions, follow-up care, medications, Prescriptions given X 1, 19:25 Patient left the ED. tb4 Signatures: Wally Goel PA-C PA-C cp Mitchell, Ginger gm2 PRISCILA PALAFOX RN RN dd2 Lisa Suarez RN RN tb4 Doug Rivas RN RN ar8
--- NOTE | 2025-09-13 18:56 | EDPHYS ---
Physician Documentation [facility] Name: Noah Whyte Age: 84 yrs Sex: Male : 1940 Arrival Date: 09/13/2025 Time: 17:01 Bed 17 Private MD: ED Physician Zaire Alvarez HPI: 09/13 17:20 This 84 yrs old Male presents to ER via Ambulatory with complaints of Pain With cp Urination. 17:20 The patient presents with urinary symptoms, dysuria, difficulty urinating. Onset: The cp symptoms/episode began/occurred yesterday, and became worse today. Associated signs and symptoms: Pertinent negatives: abdominal pain, constipation, fever, hematuria, vomiting. Severity of symptoms: in the emergency department the symptoms are unchanged, despite home interventions. Patient reports having TURP procedure done by DR Suero 09/03/2025 and f/u appointment yesterday. Historical: - Allergies: 17:12 Clarithromycin; dd2 17:12 Levofloxacin; dd2 - PMHx: 17:12 Anemia; Bladder Tumor - Cancer; GERD; High Cholesterol; Hypertension; hyponatremia; dd2 Hypothyroidism; - PSHx: 17:12 back; cataract repair; TURP; dd2 - Immunization history:: Adult Immunizations up to date. - Infectious Disease History:: Denies. - Social history:: Smoking status: Patient denies any tobacco usage or history of. ROS: 17:25 Constitutional: Negative for body aches, chills, fever, poor PO intake, cp 17:25 Eyes: Negative for injury, pain, redness, and discharge, cp 17:25 ENT: Negative for ear pain, sore throat, difficulty swallowing, difficulty handling secretions, 17:25 Cardiovascular: Negative for chest pain, palpitations, 17:25 Respiratory: Negative for cough, shortness of breath, wheezing, 17:25 Abdomen/GI: Negative for abdominal pain, vomiting, diarrhea, constipation, 17:25 Back: Negative for pain at rest, pain with movement, 17:25 : Positive for burning with urination, difficulty urinating, Negative for hematuria, testicular pain 17:25 Neuro: Negative for altered mental status, dizziness, weakness, 17:25 All other systems are negative, Exam: 17:30 Constitutional: The patient appears in no acute distress, alert, awake, non-toxic, well cp developed, well nourished, 17:30 Head/Face: Normocephalic, atraumatic. cp 17:30 Eyes: Periorbital structures: appear normal, Conjunctiva: normal, no exudate, no injection, Sclera: no appreciated abnormality, Lids and lashes: appear normal, bilaterally, 17:30 ENT: External ear(s): are unremarkable, Nose: is normal, Mouth: Lips: moist, Oral mucosa: moist, Posterior pharynx: Airway: no evidence of obstruction, patent, 17:30 Chest/axilla: Inspection: normal, 17:30 Cardiovascular: Rate: bradycardic, Rhythm: regular, 17:30 Respiratory: the patient does not display signs of respiratory distress, Respirations: normal, no use of accessory muscles, no retractions, labored breathing, is not present, Breath sounds: are clear throughout, no decreased breath sounds, no stridor, no wheezing, 17:30 Abdomen/GI: Inspection: abdomen appears normal, Bowel sounds: active, all quadrants, Palpation: soft, in all quadrants, mild abdominal tenderness, in the suprapubic area, rebound tenderness, is not appreciated, involuntary guarding, is not appreciated, 17:30 Back: pain, is absent, ROM is normal, 17:30 Neuro: Orientation: to person, place \T\ time. Mentation: is normal, Gait: is steady, Vital Signs: 17:12 BP 136 / 75; Pulse 57; Resp 16; Temp 97.6; Pulse Ox 100% ; Weight 71.67 kg; Pain 4/10; dd2 17:40 BP 143 / 75; Pulse 55; Resp 16; Pulse Ox 100% on R/A; ar8 18:38 BP 143 / 78; Pulse 53; Resp 16; Pulse Ox 100% on R/A; Pain 0/10; ar8 19:24 BP 133 / 87; Pulse 74; Resp 19; Pulse Ox 100% on R/A; Pain 0/10; tb4 17:12 Pain Scale: Adult dd2 18:38 Pain Scale: Adult ar8 19:24 Pain Scale: Adult tb4 MDM: 17:13 Medical Screening Exam initiated cp 18:00 Differential diagnosis: UTI, urinary retention, prostatitis, urethritis, sepsis, cp bacteremia. 18:55 Data reviewed: vital signs, nurses notes, lab test result(s), and as a result, I will cp discharge patient. 18:55 I considered the following discharge prescriptions or medication management in the cp emergency department Medications were administered in the Emergency Department. See MAR. Care significantly affected by the following chronic conditions: Hypertension, Cancer. Counseling: I had a detailed discussion with the patient and/or guardian regarding the historical points, exam findings, and any diagnostic results supporting the discharge/admit diagnosis, lab results, the need for outpatient follow up, for definitive care, a urologist, to return to the emergency department if symptoms worsen or persist or if there are any questions or concerns that arise at home. Response to treatment: the patient's symptoms have markedly improved after treatment, and as a result, I will discharge patient. ED course: VSS. Kulkarni catheter placed by nursing staff. Will discharge to home with catheter in place. 09/13 17:13 Order name: UA Rfx Quan Cult if indicated; Complete Time: 17:47 cp 09/13 17:17 Order name: Bladder Scanner: pre and post void; Complete Time: 17:37 cp 09/13 17:47 Order name: Kulkarni; Complete Time: 18:17 cp Administered Medications: 18:56 Not Given (Physician Discretion): [id number] mg PO once cp 19:24 Drug: Cefdinir PO 300 mg PO once Route: PO; tb4 19:28 Follow up: Response: No adverse reaction tb4 Disposition Summary: 09/13/25 18:55 Discharge Ordered Notes: Location: Home cp Problem: new cp Symptoms: have improved cp Condition: Stable cp Diagnosis - Retention of urine, unspecified cp Followup: cp - With: Nazario Suero MD - When: 1 week - Reason: Recheck today's complaints Discharge Instructions: - Discharge Summary Sheet cp - Acute Urinary Retention, Male cp Forms: - Medication Reconciliation Form cp - Antibiotic Education cp - Prescription Opioid Use cp - Patient Portal Instructions cp - Leadership Thank You Letter cp Prescriptions: - cefpodoxime 100 mg Oral tablet - take 1 tablet ORAL route every 12 hours for 7 days take with food; 14 tablet; cp Refills: 0, Product Selection Permitted Signatures: Dispatcher [employer] EDWally Cool PA-C PA-C cp DAVIS, DIANA RN RN dd2 Lisa Suarez RN RN tb4
[2025-09-13 19:34] VITALS: TEMP 97.6; O2SAT 100
[2025-09-13 19:38] VITALS: BP 133/87
== END 2025-09-13 19:25 | disposition home or self-care (01) ==
LOC: ER 17:01
DX: R33.9 Retention of urine, unspecified (principal); R30.0 Dysuria; Z98.890 Other specified postprocedural states
CPT/HCPCS: 51702; 81001; 99284